=== PATIENT | female | born 1950 ===

== ENCOUNTER 2017-10-30 13:19 | Inpatient (IN) | payer MEDICARE, BC, MEDICAID ==
[2017-10-27 13:23] VITALS: PULSE 103
[2017-10-30 13:26] VITALS: BMI 32.9
--- NOTE | 2017-10-30 19:55 | CP.PCM.HP ---
History of Present Illness - History of Present Illness History of Present Illness: CC: CVA This is a 67 yo female with multiple medical problems with history of new CVA with right MCA distribution admitted today to [facility] acute rehab for continued PT/ OT/ST as well as continued monitoring. Her past medical history includes ESRD on dialysis, Type 2 DM, HTN, obesity, history of old CVA in 2011, atrial fibrillation, GI bleed with hemorrhagic shock last week at [facility]. During that time the patient had an episode of cardiac arrest and respiratory failure and required intubation and hemodynamic monitoring in the ICU due to hypotensive shock from extravasation. Today, the patient is hemodynamically stable and states that she feels well. She has had no further rectal bleeding. Patient denies chest pain, shortness of breath, fevers, chills, nausea, vomiting , diarrhea, headache. All of the patient's and/or family's questions were answered at the bedside. Past medical history: End-stage renal disease on dialysis 3 days a week MWF, Diverticulosis, CVA, hypertension, asthma, GI bleed, Type 2 DM Past surgical history: AV fistula, colonoscopy 08/13/2014 Allergies: No known drug allergies. Family history: Noncontributory this time Social history: No history of tobacco use, EtOH or illicit drugs Medications: Reviewed as per MAR Present on Admission - Present on Admission Any Indicators Present on Admission: No Review of Systems - Review of Systems Review of Systems: A 12 point review of systems was conducted and found to be negative other than what was mentioned in the HPI. Past Patient History - Infectious Disease Hx of Infectious Diseases: None - Tetanus Immunizations Tetanus Immunization: Up to Date - Past Social History Smoking Status: Never Smoked - CARDIAC Hx Cardiac Disorders: Yes Hx Hypercholesterolemia: Yes Hx Hypertension: Yes - PULMONARY Hx Asthma: Yes - NEUROLOGICAL HX Cerebrovascular Accident: Yes - HEENT Hx HEENT Problems: No - RENAL Hx Renal Failure: Yes (with dialysis) - ENDOCRINE/METABOLIC Hx Diabetes Mellitus Type 2: Yes - HEMATOLOGICAL/ONCOLOGICAL Hx Blood Transfusions: Yes Hx Blood Transfusion Reaction: No - INTEGUMENTARY Hx Dermatological Problems: No - MUSCULOSKELETAL/RHEUMATOLOGICAL Hx Falls: Yes - GASTROINTESTINAL Hx Gastrointestinal Disorders: Yes Other/Comment: diverticulosis/hemorroids - GENITOURINARY/GYNECOLOGICAL Hx Genitourinary Disorders: Yes (voids "a little") Other/Comment: dialysis patient. left limb alert - PSYCHIATRIC Hx Substance Use: No - SURGICAL HISTORY Hx Surgeries: Yes - ANESTHESIA Hx Anesthesia Reactions: No Hx Malignant Hyperthermia: No Meds Allergies/Adverse Reactions: Allergies Allergy/AdvReac Type Severity Reaction Status Date / Time Latex, Natural Rubber Allergy Unknown RASH Verified 10/26/17 14:13 Physical Exam - Additional Findings Additional findings: Physical exam: Constitutional- cooperative, awake, alert Head- NCAT, PERRL Eye- PERRL, EOMI ENT- normal exam, MMM. Neck- normal inspection, supple, no JVD Respiratory- CTAB, no wheezes rales rhonchi Cardiovascular- RRR, +S1, +S2 no MRG GI/Abdominal- normal bowel sounds, soft, no mass, no hsm Skin- warm, dry Extremities Exam- normal capillary refill, normal inspection Neurological Exam- alert, awake, oriented Psych- normal mood, normal affect Assessment & Plan - Assessment and Plan (Free Text) Plan: ASSESSMENT 1) Right MCA CVA 2) ESRD on dialysis 3 days a week 3) Recent hemorrhagic shock secondary to AV fistula bleed/GI bleed 4) Type 2 DM 5) Essential hypertension 6) Obesity 7) chronic atrial fibrillation PLAN - Admit to acute rehab - PT/OT/ST - consultation with Dr. Villafuerte, physiatry - Dr. Goetz on consultation for dialysis orders - Norvasc 2.5 mg po daily for htn - Sensipar 30 mg po acl and Sevelamer 2 tab po TID. In addition will add Nepro and Prostat diet supplementations - ASA 81 mg po daily - Prednisone 20 mg po daily - DVT prophylaxis with SCD due to recent hemorrhagic shock from GI bleed- anticoagulation other than heparin during dialysis is contraindicated
[2017-10-30] MEDS ORDERED: Patient's Own Med (Atorvastatin [Lipitor] 80 MG) PO SCH (22:00)
[2017-10-30] MEDS ORDERED: Insulin Lispro (humaLOG) 100 Units/ml Inj SC SCH (23:00)
[2017-10-30] MEDS: Insulin Lispro (humaLOG) 100 Units/ml Inj SC SCH (23:30)
[2017-10-31] MEDS: Silver Sulfadiazine 1% CREAM (50 gm) TOP SCH ×2 (06:06→17:46)
[2017-10-31] MEDS: Pantoprazole 40 mg EC Tab PO SCH (06:08)
[2017-10-31 06:35] LABS: HEMOGLOBIN 9.8 g/dL (12.0-16.0); MEAN CELL VOLUME 89.1 fl (81.0-99.0); MEAN CORPUSCULAR HEMOGLOBIN 29.1 pg (27.0-31.0); MEAN CORPUSCULAR HGB CONC 32.6 g/dL (33.0-37.0); RBC 3.37 Mil/uL (3.80-5.20); RED CELL DISTRIBUTION WIDTH 18.9 % (11.5-14.5); WHITE BLOOD COUNT 8.6 K/uL (4.8-10.8)
[2017-10-31 06:42] LABS: CALCIUM 9.5 mg/dL (8.4-10.2)
[2017-10-31] MEDS: Insulin Lispro (humaLOG) 100 Units/ml Inj SC SCH ×4 (07:35→22:00)
[2017-10-31] MEDS ORDERED: SEVELAMER CARBONATE PO SCH (09:00)
--- NOTE | 2017-10-31 11:28 | CP.PCM.CON ---
History of Present Illness - History of Present Illness History of Present Illness: This patient is 67 years of age female was admitted from [facility] because of CVA for rehabilitation because of weakness also generalized debility. Patient on with end stage renal disease on maintenance hemodialysis Sunday. And she is due to have dialysis today. Patient underwent multiple complicated hospitalizations related to severe bleeding from the left AV shunt patient. Patient was in intensive care unit on ventilator and she lost a lot of blood apparently and developed by a brief cardiac advised. Past medical history: End-stage renal disease on dialysis 3 days a week MWF, Diverticulosis, CVA, hypertension, asthma, GI bleed, Type 2 DM Past surgical history: AV fistula, colonoscopy 08/13/2014 Allergies: No known drug allergies. Family history: Noncontributory this time Social history: No history of tobacco use, EtOH or illicit drugs Medications: Reviewed Review of Systems - Constitutional Constitutional: absent: Anorexia, Chills - EENT Eyes: absent: Exophthalmos Nose/Mouth/Throat: absent: Nasal Congestion, Nasal Trauma, Post Nasal Drip - Cardiovascular Cardiovascular: Dyspnea on Exertion, Edema, Pedal Edema. absent: Chest Pain - Respiratory Respiratory: Dyspnea on Exertion. absent: Cough, Hemoptysis - Gastrointestinal Gastrointestinal: absent: Abdominal Pain, Coffee Ground Emesis, Cramping - Genitourinary Genitourinary: Nocturia - Menstruation Menstruation: absent: Cycle >35 Days - Musculoskeletal Musculoskeletal: Abnormal Gait, Muscle Weakness. absent: Numbness - Neurological Neurological: Abnormal Gait. absent: Confusion, Syncope - Psychiatric Psychiatric: absent: Confusion, Depression - Endocrine Endocrine: Fatigue - Hematologic/Lymphatic Hematologic: absent: Easy Bleeding Past Patient History - Infectious Disease Hx of Infectious Diseases: None - Tetanus Immunizations Tetanus Immunization: Up to Date - Past Medical History & Family History Past Medical History?: Yes - Past Social History Smoking Status: Never Smoked - CARDIAC Hx Cardiac Disorders: Yes Hx Congestive Heart Failure: No Hx Hypercholesterolemia: Yes Hx Hypertension: Yes - PULMONARY Hx Chronic Obstructive Pulmonary Disease (COPD): No - NEUROLOGICAL HX Cerebrovascular Accident: Yes - HEENT Hx HEENT Problems: No Hx Cataracts: Yes - RENAL Hx Renal Failure: Yes (with dialysis) - ENDOCRINE/METABOLIC Hx Diabetes Mellitus Type 1: No Hx Diabetes Mellitus Type 2: Yes Hx Hypothyroidism: Yes - HEMATOLOGICAL/ONCOLOGICAL Hx Anemia: Yes (secondary to rectal bleeding-resolved.) Hx Blood Transfusions: Yes Hx Blood Transfusion Reaction: No - INTEGUMENTARY Hx Dermatological Problems: No - MUSCULOSKELETAL/RHEUMATOLOGICAL Hx Arthritis: No - GASTROINTESTINAL Hx Gastrointestinal Disorders: Yes Other/Comment: diverticulosis/hemorroids. rectal bleeding - GENITOURINARY/GYNECOLOGICAL Hx Genitourinary Disorders: Yes (voids "a little") Other/Comment: dialysis patient. left limb alert - PSYCHIATRIC Hx Psychophysiologic Disorder: No Hx Substance Use: No - SURGICAL HISTORY Hx Surgeries: Yes - ANESTHESIA Hx Anesthesia Reactions: No Hx Malignant Hyperthermia: No Meds Allergies/Adverse Reactions: Allergies Allergy/AdvReac Type Severity Reaction Status Date / Time Latex, Natural Rubber Allergy Unknown RASH Verified 10/26/17 14:13 - Medications Medications: Current Medications Amlodipine Besylate (Norvasc) 2.5 mg PO DAILY [facility] Last Admin: 10/31/17 09:02 Dose: 2.5 mg Aspirin (Ecotrin) 81 mg PO DAILY [facility] Last Admin: 10/31/17 09:02 Dose: 81 mg Atorvastatin Calcium (Lipitor) 80 mg PO HS [facility] Last Admin: 10/30/17 22:21 Dose: 80 mg Cinacalcet (Sensipar) 30 mg PO ACL [facility] Doxercalciferol (Hectorol) 2 mcg IVP MOWEFR [facility] Gabapentin (Neurontin) 100 mg PO BID [facility] Last Admin: 10/31/17 09:50 Dose: 100 mg Home Med (Sevelamer Carbonate [Renvela]) 2 tab PO TID [facility] Insulin Human Lispro (Humalog) 0 units SC ACHS [facility] PRN Reason: Protocol Last Admin: 10/31/17 07:35 Dose: Not Given Montelukast Sodium (Singulair) 10 mg PO DAILY [facility] Last Admin: 10/31/17 09:02 Dose: 10 mg Pantoprazole Sodium (Protonix Ec Tab) 40 mg PO 0600 [facility] Last Admin: 10/31/17 06:08 Dose: 40 mg Prednisone (Prednisone Tab) 20 mg PO DAILY [facility] Last Admin: 10/31/17 09:02 Dose: 20 mg Silver Sulfadiazine (Silvadene 1% 50 Gm) 1 applic TOP 0600,1800 [facility] Last Admin: 10/31/17 06:06 Dose: 1 applic Physical Exam - Constitutional Appears: No Acute Distress - ENT Exam ENT Exam: Mucous Membranes Moist - Neck Exam Neck exam: Negative for: Lymphadenopathy - Respiratory Exam Respiratory Exam: NORMAL BREATHING PATTERN. absent: Chest Wall Tenderness, Rhonchi - Cardiovascular Exam Cardiovascular Exam: absent: Gallop, JVD, Rubs - GI/Abdominal Exam GI & Abdominal Exam: Normal Bowel Sounds - Extremities Exam Extremities exam: Negative for: calf tenderness - Back Exam Back exam: absent: CVA tenderness (L), CVA tenderness (R) - Neurological Exam Neurological exam: Alert - Psychiatric Exam Psychiatric exam: Normal Affect Results - Vital Signs Recent Vital Signs: Last Vital Signs Temp 97.9 F 10/31/17 07:30 Pulse 88 10/31/17 09:02 Resp 18 10/31/17 07:30 BP 145/69 10/31/17 09:02 Pulse Ox 98 10/31/17 07:30 - Labs Result Diagrams: 10/31/17 05:25 10/31/17 05:25 Labs: Laboratory Results - last 24 hr 10/30/17 10/31/17 10/31/17 20:48 05:25 05:25 WBC 8.6 RBC 3.37 L Hgb 9.8 L Hct 30.0 L MCV 89.1 MCH 29.1 MCHC 32.6 L RDW 18.9 H Plt Count 215 Sodium 137 Potassium 5.2 H Chloride 99 Carbon Dioxide 25 Anion Gap 18 BUN 94 H Creatinine 6.2 H Est GFR ( Amer) 8 Est GFR (Non-Af Amer) 7 POC Glucose (mg/dL) 282 H Random Glucose 112 H Calcium 9.5 10/31/17 10/31/17 05:58 11:13 WBC RBC Hgb Hct MCV MCH MCHC RDW Plt Count Sodium Potassium Chloride Carbon Dioxide Anion Gap BUN Creatinine Est GFR ( Amer) Est GFR (Non-Af Amer) POC Glucose (mg/dL) 104 155 H Random Glucose Calcium Assessment & Plan (1) Chronic kidney disease on chronic dialysis Assessment and Plan: Patient with end stage renal disease on maintenance hemodialysis. Sunday. Arrangement underway for hemodialysis today. Potassium bath 2 mEq with bicarbonate bath 34 Sodium bath 138 Ultrafiltration approximately 2500 mL to 3000 as tolerated.. EPO on dialysis. Other diagnosis patient admitted with acute CVA for rehabilitation. Status post cardiac arrest Status post massive bleeding from AV fistula. History of hyperphosphatemia History of secondary hyperparathyroidism Status: Acute (2) Hemorrhage of arteriovenous fistula Status: Acute (3) Hemorrhagic shock Status: Acute
--- NOTE | 2017-10-31 12:40 | CP.PCM.CON ---
History of Present Illness - History of Present Illness History of Present Illness: Dr Villafuerte PMR consultation on Caroline Isabel, born 1950, who has been admitted to [facility] for acute inpatient rehabilitation following an admission with N/V and right CVA with left HP. Multiple medical problems with limited function. + LGIB, s/p cardiac arrest Review of Systems - Review of Systems Systems not reviewed;Unavailable: Other (right now very tired and getting HD after therapy today. will defer denies pain or acute issue) Past Patient History - Infectious Disease Hx of Infectious Diseases: None - Tetanus Immunizations Tetanus Immunization: Up to Date - Past Medical History & Family History Past Medical History?: Yes - Past Social History Smoking Status: Never Smoked Alcohol: None Drugs: Denies Home Situation {Lives}: With Family - CARDIAC Hx Cardiac Disorders: Yes Hx Congestive Heart Failure: No Hx Hypercholesterolemia: Yes Hx Hypertension: Yes - PULMONARY Hx Chronic Obstructive Pulmonary Disease (COPD): No - NEUROLOGICAL HX Cerebrovascular Accident: Yes - HEENT Hx HEENT Problems: No Hx Cataracts: Yes - RENAL Hx Renal Failure: Yes (with dialysis) - ENDOCRINE/METABOLIC Hx Diabetes Mellitus Type 1: No Hx Diabetes Mellitus Type 2: Yes Hx Hypothyroidism: Yes - HEMATOLOGICAL/ONCOLOGICAL Hx Anemia: Yes (secondary to rectal bleeding-resolved.) Hx Blood Transfusions: Yes Hx Blood Transfusion Reaction: No - INTEGUMENTARY Hx Dermatological Problems: No - MUSCULOSKELETAL/RHEUMATOLOGICAL Hx Arthritis: No - GASTROINTESTINAL Hx Gastrointestinal Disorders: Yes Other/Comment: diverticulosis/hemorroids. rectal bleeding - GENITOURINARY/GYNECOLOGICAL Hx Genitourinary Disorders: Yes (voids "a little") Other/Comment: dialysis patient. left limb alert - PSYCHIATRIC Hx Psychophysiologic Disorder: No Hx Substance Use: No - SURGICAL HISTORY Hx Surgeries: Yes - ANESTHESIA Hx Anesthesia Reactions: No Hx Malignant Hyperthermia: No Meds Allergies/Adverse Reactions: Allergies Allergy/AdvReac Type Severity Reaction Status Date / Time Latex, Natural Rubber Allergy Unknown RASH Verified 10/26/17 14:13 - Medications Medications: Current Medications Amlodipine Besylate (Norvasc) 2.5 mg PO DAILY [facility] Last Admin: 10/31/17 09:02 Dose: 2.5 mg Aspirin (Ecotrin) 81 mg PO DAILY [facility] Last Admin: 10/31/17 09:02 Dose: 81 mg Atorvastatin Calcium (Lipitor) 80 mg PO HS [facility] Last Admin: 10/30/17 22:21 Dose: 80 mg Cinacalcet (Sensipar) 30 mg PO ACL [facility] Last Admin: 10/31/17 12:24 Dose: 30 mg Doxercalciferol (Hectorol) 2 mcg IVP MOWEFR [facility] Epoetin Gonzalo (Procrit) 5,000 unit IV MWF [facility] Gabapentin (Neurontin) 100 mg PO BID [facility] Last Admin: 10/31/17 09:50 Dose: 100 mg Home Med (Sevelamer Carbonate [Renvela]) 2 tab PO TID [facility] Insulin Human Lispro (Humalog) 0 units SC ACHS [facility] PRN Reason: Protocol Last Admin: 10/31/17 12:00 Dose: 2 u Montelukast Sodium (Singulair) 10 mg PO DAILY [facility] Last Admin: 10/31/17 09:02 Dose: 10 mg Pantoprazole Sodium (Protonix Ec Tab) 40 mg PO 0600 [facility] Last Admin: 10/31/17 06:08 Dose: 40 mg Prednisone (Prednisone Tab) 20 mg PO DAILY [facility] Last Admin: 10/31/17 09:02 Dose: 20 mg Silver Sulfadiazine (Silvadene 1% 50 Gm) 1 applic TOP 0600,1800 [facility] Last Admin: 10/31/17 06:06 Dose: 1 applic Physical Exam - Constitutional Appears: No Acute Distress - Head Exam Head Exam: ATRAUMATIC, NORMAL INSPECTION, NORMOCEPHALIC - ENT Exam ENT Exam: Mucous Membranes Moist Results - Vital Signs Recent Vital Signs: Last Vital Signs Temp 97.9 F 10/31/17 07:30 Pulse 88 10/31/17 09:02 Resp 18 10/31/17 07:30 BP 145/69 10/31/17 09:02 Pulse Ox 98 10/31/17 07:30 - Labs Result Diagrams: 10/31/17 05:25 10/31/17 05:25 Labs: Laboratory Results - last 24 hr 10/30/17 10/31/17 10/31/17 20:48 05:25 05:25 WBC 8.6 RBC 3.37 L Hgb 9.8 L Hct 30.0 L MCV 89.1 MCH 29.1 MCHC 32.6 L RDW 18.9 H Plt Count 215 Sodium 137 Potassium 5.2 H Chloride 99 Carbon Dioxide 25 Anion Gap 18 BUN 94 H Creatinine 6.2 H Est GFR ( Amer) 8 Est GFR (Non-Af Amer) 7 POC Glucose (mg/dL) 282 H Random Glucose 112 H Calcium 9.5 10/31/17 10/31/17 05:58 11:13 WBC RBC Hgb Hct MCV MCH MCHC RDW Plt Count Sodium Potassium Chloride Carbon Dioxide Anion Gap BUN Creatinine Est GFR ( Amer) Est GFR (Non-Af Amer) POC Glucose (mg/dL) 104 155 H Random Glucose Calcium Assessment & Plan - Assessment and Plan (Free Text) Assessment: 67 year old female with complex multiple medical issues on HD for ESRD + CVA left HP + DJD bilateral knees R>L limited function right arm AV fistula getting HD very tired will do more complete assessment tomorrow no calf tenderness PT/OT to continue to help increase functional independence Team conference for d/c planning Pain: controlled Vascular: no evidence of DVT GI: No evidence of constipation or diarrhea Patient is an excellent acute rehabilitation candidate and will have focused PT , OT and recreational therapy to help facilitate a safe and appropriate d/c plan impairment code: 01.1
[2017-10-31] MEDS: Epoetin Alfa 20000 UNIT/ML Inj IV SCH (17:34)
[2017-10-31] MEDS ORDERED: Doxercalciferol 4 mcg/2 ml Inj IVP SCH ×2 (19:25→19:39)
[2017-10-31 20:35] LABS: HEPATITIS B SURFACE AG Negative (NEGATIVE)
[2017-10-31 20:40] LABS: HEPATITIS B CORE AB NEGATIVE (NEGATIVE)
[2017-10-31 20:53] LABS: HEPATITIS C ANTIBODY NEGATIVE (NEGATIVE)
[2017-11-01] MEDS: Silver Sulfadiazine 1% CREAM (50 gm) TOP SCH ×2 (05:43→17:25)
[2017-11-01] MEDS: Pantoprazole 40 mg EC Tab PO SCH (05:44)
[2017-11-01] MEDS: Insulin Lispro (humaLOG) 100 Units/ml Inj SC SCH ×4 (07:36→21:51)
--- NOTE | 2017-11-01 08:00 | CP.PCM.PN ---
Subjective - Date & Time of Evaluation Date of Evaluation: 10/31/17 Time of Evaluation: 11:59 - Subjective Subjective: Patient and bed less shortness of breath No diarrhea and no vomiting Objective - Vital Signs/Intake and Output Vital Signs (last 24 hours): Temp Pulse Resp BP Pulse Ox 98.2 F 88 20 143/71 98 11/01/17 04:00 11/01/17 04:00 11/01/17 04:00 11/01/17 04:00 11/01/17 04:00 - Medications Medications: Current Medications Amlodipine Besylate (Norvasc) 2.5 mg PO DAILY [facility] Last Admin: 10/31/17 09:02 Dose: 2.5 mg Aspirin (Ecotrin) 81 mg PO DAILY [facility] Last Admin: 10/31/17 09:02 Dose: 81 mg Atorvastatin Calcium (Lipitor) 80 mg PO HS [facility] Last Admin: 10/31/17 21:49 Dose: 80 mg Cinacalcet (Sensipar) 30 mg PO ACL [facility] Last Admin: 10/31/17 12:24 Dose: 30 mg Epoetin Gonzalo (Procrit) 5,000 unit IV MWF [facility] Last Admin: 10/31/17 17:34 Dose: 5,000 unit Gabapentin (Neurontin) 100 mg PO BID [facility] Last Admin: 10/31/17 17:38 Dose: 100 mg Insulin Human Lispro (Humalog) 0 units SC ACHS [facility] PRN Reason: Protocol Last Admin: 11/01/17 07:36 Dose: Not Given Montelukast Sodium (Singulair) 10 mg PO DAILY [facility] Last Admin: 10/31/17 09:02 Dose: 10 mg Pantoprazole Sodium (Protonix Ec Tab) 40 mg PO 0600 [facility] Last Admin: 11/01/17 05:44 Dose: 40 mg Prednisone (Prednisone Tab) 20 mg PO DAILY [facility] Last Admin: 10/31/17 09:02 Dose: 20 mg Sevelamer HCl (Renagel) 800 mg PO TID [facility] Last Admin: 10/31/17 17:37 Dose: 800 mg Silver Sulfadiazine (Silvadene 1% 50 Gm) 1 applic TOP 0600,1800 [facility] Last Admin: 11/01/17 05:43 Dose: 1 applic Tramadol HCl (Ultram) 50 mg PO Q6 PRN PRN Reason: Pain, moderate (4-7) Last Admin: 11/01/17 05:57 Dose: 50 mg - Labs Labs: 10/31/17 05:25 10/31/17 05:25 - Constitutional Appears: No Acute Distress - ENT Exam ENT Exam: Mucous Membranes Moist - Neck Exam Neck Exam: absent: Lymphadenopathy - Respiratory Exam Respiratory Exam: Rhonchi, NORMAL BREATHING PATTERN. absent: Chest Wall Tenderness - Cardiovascular Exam Cardiovascular Exam: absent: Gallop, JVD, Rubs - GI/Abdominal Exam GI & Abdominal Exam: Soft - Extremities Exam Extremities Exam: absent: Calf Tenderness - Back Exam Back Exam: absent: CVA tenderness (L), CVA tenderness (R) - Neurological Exam Neurological Exam: Alert - Psychiatric Exam Psychiatric exam: Normal Affect - Skin Skin Exam: absent: Cyanosis Assessment and Plan (1) Chronic kidney disease on chronic dialysis Assessment & Plan: Patient with end stage renal disease on maintenance hemodialysis. Sunday. . Potassium bath 2 mEq with bicarbonate bath 34 Sodium bath 138 Ultrafiltration approximately 2500 mL to 3000 as tolerated.. Anemia EPO on dialysis. Other diagnosis patient admitted with acute CVA for rehabilitation. Status post cardiac arrest Status post massive bleeding from AV fistula. History of hyperphosphatemia History of secondary hyperparathyroidism Diabetes Mellitus hypertension Status: Acute (2) Hemorrhage of arteriovenous fistula Status: Acute (3) Hemorrhagic shock Status: Acute
--- NOTE | 2017-11-01 18:08 | PCM.OPOC ---
Physiatry Overall Plan of Care - Overall Plan of Care Estimated Length of Stay in Weeks: 3 Rehab Impairment: Mobility, Gait, Balance, Coordination Etiologic Diagnosis: Cerebrovascular Accident Rehab/Medical Prognosis: Fair - Anticipated Interventions Physical Therapy:: Yes Occupational Therapy:: Yes Speech Therapy:: No Recreational Therapy:: Yes - Therapy Goals Bed Mobility: Contact Guard Ambulation: Contact Guard Functional Positional Changes:: Contact Guard - Discharge Plan Discharge Destination: Subacute
[2017-11-02] MEDS: Silver Sulfadiazine 1% CREAM (50 gm) TOP SCH ×2 (06:25→17:04)
[2017-11-02] MEDS: Pantoprazole 40 mg EC Tab PO SCH (06:25)
[2017-11-02 06:35] LABS: HEMOGLOBIN 9.7 g/dL (12.0-16.0); MEAN CELL VOLUME 89.3 fl (81.0-99.0); MEAN CORPUSCULAR HEMOGLOBIN 29.3 pg (27.0-31.0); MEAN CORPUSCULAR HGB CONC 32.8 g/dL (33.0-37.0); RBC 3.3 Mil/uL (3.80-5.20); RED CELL DISTRIBUTION WIDTH 18.5 % (11.5-14.5); WHITE BLOOD COUNT 9.3 K/uL (4.8-10.8)
[2017-11-02] MEDS: Insulin Lispro (humaLOG) 100 Units/ml Inj SC SCH ×4 (06:35→21:14)
--- NOTE | 2017-11-02 09:45 | CP.PCM.PN ---
Subjective - Date & Time of Evaluation Date of Evaluation: 11/02/17 Time of Evaluation: 11:00 - Subjective Subjective: Patient seen and examined during PT. Feeling well, still with chest wall pain and discomfort since being defibrilated at [facility]. Hemodynamically stable, afebrile. participating with PT. Has soft BM and with on and off bleeding Denies any abdominal pain H& H stable For HD today Objective - Vital Signs/Intake and Output Vital Signs (last 24 hours): Temp Pulse Resp BP Pulse Ox 97.3 F L 90 19 111/52 L 98 11/02/17 08:21 11/02/17 09:02 11/02/17 08:21 11/02/17 09:02 11/02/17 08:21 - Medications Medications: Current Medications Amlodipine Besylate (Norvasc) 2.5 mg PO DAILY [facility] Last Admin: 11/02/17 09:02 Dose: 2.5 mg Aspirin (Ecotrin) 81 mg PO DAILY [facility] Last Admin: 11/02/17 09:04 Dose: 81 mg Atorvastatin Calcium (Lipitor) 80 mg PO HS [facility] Last Admin: 11/01/17 21:52 Dose: 80 mg Cinacalcet (Sensipar) 30 mg PO ACL [facility] Last Admin: 11/01/17 12:29 Dose: 30 mg Epoetin Gonzalo (Procrit) 5,000 unit IV MWF [facility] Last Admin: 10/31/17 17:34 Dose: 5,000 unit Gabapentin (Neurontin) 100 mg PO BID [facility] Last Admin: 11/02/17 09:01 Dose: 100 mg Insulin Human Lispro (Humalog) 0 units SC [facility] PRN Reason: Protocol Last Admin: 11/02/17 06:35 Dose: Not Given Montelukast Sodium (Singulair) 10 mg PO DAILY [facility] Last Admin: 11/02/17 09:02 Dose: 10 mg Pantoprazole Sodium (Protonix Ec Tab) 40 mg PO 0600 [facility] Last Admin: 11/02/17 06:25 Dose: 40 mg Prednisone (Prednisone Tab) 20 mg PO DAILY [facility] Last Admin: 11/02/17 09:04 Dose: 20 mg Sevelamer HCl (Renagel) 800 mg PO TID [facility] Last Admin: 11/02/17 09:01 Dose: 800 mg Silver Sulfadiazine (Silvadene 1% 50 Gm) 1 applic TOP 0600,1800 [facility] Last Admin: 11/02/17 06:25 Dose: 1 applic Tramadol HCl (Ultram) 50 mg PO Q6 PRN PRN Reason: Other Last Admin: 11/02/17 09:05 Dose: 50 mg - Labs Labs: 11/02/17 05:20 10/31/17 05:25 - Constitutional Appears: Non-toxic, No Acute Distress, Other (obese ) - Head Exam Head Exam: ATRAUMATIC, NORMOCEPHALIC - Eye Exam Eye Exam: EOMI, Normal appearance, PERRL Pupil Exam: NORMAL ACCOMODATION - ENT Exam ENT Exam: Mucous Membranes Moist, Normal Exam - Neck Exam Neck Exam: Full ROM, Normal Inspection - Respiratory Exam Respiratory Exam: Clear to Ausculation Bilateral. absent: Rales, Rhonchi, Wheezes, Respiratory Distress - Cardiovascular Exam Cardiovascular Exam: +S1, +S2. absent: JVD - GI/Abdominal Exam GI & Abdominal Exam: Soft, Normal Bowel Sounds. absent: Distended, Guarding, Tenderness, Rebound - Rectal Exam Rectal Exam: Deferred - Extremities Exam Extremities Exam: Full ROM, Normal Capillary Refill, Normal Inspection. absent : Calf Tenderness, Pedal Edema - Back Exam Back Exam: NORMAL INSPECTION - Neurological Exam Neurological Exam: Alert, Awake, CN II-XII Intact, Oriented x3 - Psychiatric Exam Psychiatric exam: Normal Affect - Skin Skin Exam: Dry, Intact, Warm Assessment and Plan - Assessment and Plan (Free Text) Assessment: 67 yo female with multiple medical problems with history of new CVA with right MCA distribution admitted to [facility] acute rehab for PT/OT. Her past medical history includes ESRD on dialysis, Type 2 DM, HTN, obesity, history of old CVA in 2011, atrial fibrillation, GI bleed with hemorrhagic shock just last week at [facility]. During that time the patient had an episode of cardiac arrest and respiratory failure and required intubation and hemodynamic monitoring in the ICU due to hypotensive shock from extravasation. At present in acute rehab participating with PT. Still with some rectal bleed but H& H stable. 1. Right MCA CVA continue PT / OT / speech therapy on ASa , statin 2. ESRD on dialysis 3 days a week for HD today Nephro on consult following continue renagel 3. Recent hemorrhagic shock secondary to AV fistula bleed/GI bleed 4. Anemia of chronic disease and acute blood loss still with minimal rectal bleed H& H stable Colonoscopy performed 10/26 showed severe ischemic colitis with mucosal ulcerations up to 40 cm,diverticula and internal hemorrhoids on Epopoetin 5. Type 2 DM controlled continue accuchecks and insulin sliding scale 6. Essential hypertension controlled continue Norvasc 7.Obesity BMI 8. Chronic atrial fibrillation rate controlled 9. Asthma ? on montelukast and prednisone PO 10. DVt prophylaxis SCD
--- NOTE | 2017-11-02 10:20 | CP.PCM.PN ---
Subjective - Date & Time of Evaluation Date of Evaluation: 11/02/17 Time of Evaluation: 10:18 - Subjective Subjective: Patient in bed Patient awake and conscious Appetite improving No shortness of breath or difficulty breathing Patient about to start physiotherapy Objective - Vital Signs/Intake and Output Vital Signs (last 24 hours): Temp Pulse Resp BP Pulse Ox 97.3 F L 90 19 111/52 L 98 11/02/17 08:21 11/02/17 09:02 11/02/17 08:21 11/02/17 09:02 11/02/17 08:21 - Medications Medications: Current Medications Amlodipine Besylate (Norvasc) 2.5 mg PO DAILY [facility] Last Admin: 11/02/17 09:02 Dose: 2.5 mg Aspirin (Ecotrin) 81 mg PO DAILY [facility] Last Admin: 11/02/17 09:04 Dose: 81 mg Atorvastatin Calcium (Lipitor) 80 mg PO HS [facility] Last Admin: 11/01/17 21:52 Dose: 80 mg Cinacalcet (Sensipar) 30 mg PO ACL [facility] Last Admin: 11/01/17 12:29 Dose: 30 mg Epoetin Gonzalo (Procrit) 5,000 unit IV MWF [facility] Last Admin: 10/31/17 17:34 Dose: 5,000 unit Gabapentin (Neurontin) 100 mg PO BID [facility] Last Admin: 11/02/17 09:01 Dose: 100 mg Insulin Human Lispro (Humalog) 0 units SC ACHS [facility] PRN Reason: Protocol Last Admin: 11/02/17 06:35 Dose: Not Given Montelukast Sodium (Singulair) 10 mg PO DAILY [facility] Last Admin: 11/02/17 09:02 Dose: 10 mg Pantoprazole Sodium (Protonix Ec Tab) 40 mg PO 0600 [facility] Last Admin: 11/02/17 06:25 Dose: 40 mg Prednisone (Prednisone Tab) 20 mg PO DAILY [facility] Last Admin: 11/02/17 09:04 Dose: 20 mg Sevelamer HCl (Renagel) 800 mg PO TID [facility] Last Admin: 11/02/17 09:01 Dose: 800 mg Silver Sulfadiazine (Silvadene 1% 50 Gm) 1 applic TOP 0600,1800 [facility] Last Admin: 11/02/17 06:25 Dose: 1 applic Tramadol HCl (Ultram) 50 mg PO Q6 PRN PRN Reason: Other Last Admin: 11/02/17 09:05 Dose: 50 mg - Labs Labs: 11/02/17 05:20 10/31/17 05:25 - Constitutional Appears: No Acute Distress - Eye Exam Eye Exam: Conjunctival injection - ENT Exam ENT Exam: Mucous Membranes Moist - Neck Exam Neck Exam: absent: Lymphadenopathy - Respiratory Exam Respiratory Exam: absent: Chest Wall Tenderness - Cardiovascular Exam Cardiovascular Exam: absent: Gallop, JVD, Rubs - GI/Abdominal Exam GI & Abdominal Exam: Soft, Normal Bowel Sounds. absent: Guarding - Extremities Exam Extremities Exam: absent: Calf Tenderness - Back Exam Back Exam: absent: CVA tenderness (L), CVA tenderness (R) - Neurological Exam Neurological Exam: Alert - Psychiatric Exam Psychiatric exam: Normal Affect - Skin Skin Exam: absent: Cyanosis Assessment and Plan (1) Chronic kidney disease on chronic dialysis Assessment & Plan: Patient with end stage renal disease on maintenance hemodialysis. Sunday. . Potassium bath 2 mEq with bicarbonate bath 34 Sodium bath 138 Ultrafiltration approximately 2500 mL to 3000 as tolerated.. Anemia EPO on dialysis. Other diagnosis patient admitted with acute CVA for rehabilitation. Status post cardiac arrest Status post massive bleeding from AV fistula. History of hyperphosphatemia History of secondary hyperparathyroidism Diabetes Mellitus hypertension Status: Acute (2) Hemorrhage of arteriovenous fistula Status: Acute (3) Hemorrhagic shock Status: Acute
[2017-11-02] MEDS: Epoetin Alfa 20000 UNIT/ML Inj IV SCH (17:01)
--- NOTE | 2017-11-02 19:33 | CP.PCM.PN ---
Subjective - Date & Time of Evaluation Date of Evaluation: 11/02/17 Time of Evaluation: 19:32 - Subjective Subjective: Patient seen in the room, doing well denies sob/cp just finished HD denies N/V ambulating 75' in therapy with min A continue current care Objective - Vital Signs/Intake and Output Vital Signs (last 24 hours): Temp Pulse Resp BP Pulse Ox 97.3 F L 90 19 111/52 L 97 11/02/17 08:21 11/02/17 09:02 11/02/17 08:21 11/02/17 09:02 11/02/17 08:48 - Medications Medications: Current Medications Amlodipine Besylate (Norvasc) 2.5 mg PO DAILY [facility] Last Admin: 11/02/17 09:02 Dose: 2.5 mg Aspirin (Ecotrin) 81 mg PO DAILY [facility] Last Admin: 11/02/17 09:04 Dose: 81 mg Atorvastatin Calcium (Lipitor) 80 mg PO HS [facility] Last Admin: 11/01/17 21:52 Dose: 80 mg Cinacalcet (Sensipar) 30 mg PO ACL [facility] Last Admin: 11/02/17 11:40 Dose: 30 mg Epoetin Gonzalo (Procrit) 5,000 unit IV MWF [facility] Last Admin: 11/02/17 17:01 Dose: 5,000 unit Gabapentin (Neurontin) 100 mg PO BID [facility] Last Admin: 11/02/17 17:04 Dose: 100 mg Insulin Human Lispro (Humalog) 0 units SC [facility] PRN Reason: Protocol Last Admin: 11/02/17 17:04 Dose: 2 u Montelukast Sodium (Singulair) 10 mg PO DAILY [facility] Last Admin: 11/02/17 09:02 Dose: 10 mg Pantoprazole Sodium (Protonix Ec Tab) 40 mg PO 0600 [facility] Last Admin: 11/02/17 06:25 Dose: 40 mg Prednisone (Prednisone Tab) 20 mg PO DAILY [facility] Last Admin: 11/02/17 09:04 Dose: 20 mg Sevelamer HCl (Renagel) 800 mg PO TID [facility] Last Admin: 11/02/17 17:04 Dose: 800 mg Silver Sulfadiazine (Silvadene 1% 50 Gm) 1 applic TOP 0600,1800 [facility] Last Admin: 11/02/17 17:04 Dose: 1 applic Tramadol HCl (Ultram) 50 mg PO Q6 PRN PRN Reason: Other Last Admin: 11/02/17 09:05 Dose: 50 mg - Labs Labs: 11/02/17 05:20 10/31/17 05:25
[2017-11-03] MEDS: Silver Sulfadiazine 1% CREAM (50 gm) TOP SCH ×2 (05:19→17:03)
[2017-11-03] MEDS: Pantoprazole 40 mg EC Tab PO SCH (05:19)
[2017-11-03] MEDS: Insulin Lispro (humaLOG) 100 Units/ml Inj SC SCH ×4 (06:38→21:16)
--- NOTE | 2017-11-03 22:36 | CP.PCM.PN ---
Subjective - Date & Time of Evaluation Date of Evaluation: 11/03/17 Time of Evaluation: 13:00 - Subjective Subjective: renal follow up note no events overnight vitals stable heent normal opmoist no jvd [id number] present no resp distress abd soft skin normal cooperative no fnd ESRD/DM/HTN/Anemia/cva/hx of cardiac arrest hd mwf, continue per schedule lytes reviewed anemia stable bp stable continue binders and sensipar Objective - Vital Signs/Intake and Output Vital Signs (last 24 hours): Temp Pulse Resp BP Pulse Ox 98.4 F 87 20 111/51 L 97 11/03/17 07:33 11/03/17 07:33 11/03/17 07:33 11/03/17 10:20 11/03/17 07:33 - Medications Medications: Current Medications Amlodipine Besylate (Norvasc) 2.5 mg PO DAILY [facility] Last Admin: 11/03/17 10:20 Dose: 2.5 mg Aspirin (Ecotrin) 81 mg PO DAILY [facility] Last Admin: 11/03/17 10:21 Dose: 81 mg Atorvastatin Calcium (Lipitor) 80 mg PO HS [facility] Last Admin: 11/03/17 21:16 Dose: 80 mg Cinacalcet (Sensipar) 30 mg PO ACL [facility] Last Admin: 11/03/17 12:06 Dose: 30 mg Epoetin Ognzalo (Procrit) 5,000 unit IV MWF [facility] Last Admin: 11/02/17 17:01 Dose: 5,000 unit Gabapentin (Neurontin) 100 mg PO BID [facility] Last Admin: 11/03/17 17:03 Dose: 100 mg Insulin Human Lispro (Humalog) 0 units SC [facility] PRN Reason: Protocol Last Admin: 11/03/17 21:16 Dose: Not Given Montelukast Sodium (Singulair) 10 mg PO DAILY [facility] Last Admin: 11/03/17 08:35 Dose: 10 mg Pantoprazole Sodium (Protonix Ec Tab) 40 mg PO 0600 [facility] Last Admin: 11/03/17 05:19 Dose: 40 mg Prednisone (Prednisone Tab) 20 mg PO DAILY [facility] Last Admin: 11/03/17 08:35 Dose: 20 mg Sevelamer HCl (Renagel) 800 mg PO TID [facility] Last Admin: 11/03/17 17:02 Dose: 800 mg Silver Sulfadiazine (Silvadene 1% 50 Gm) 1 applic TOP 0600,1800 [facility] Last Admin: 11/03/17 17:03 Dose: 1 applic Tramadol HCl (Ultram) 50 mg PO Q6 PRN PRN Reason: Other Last Admin: 11/02/17 09:05 Dose: 50 mg - Labs Labs: 11/02/17 05:20 10/31/17 05:25
[2017-11-03 23:03] VITALS: O2SAT 98
[2017-11-04] MEDS: Silver Sulfadiazine 1% CREAM (50 gm) TOP SCH (06:02)
[2017-11-04] MEDS: Pantoprazole 40 mg EC Tab PO SCH (06:02)
[2017-11-04] MEDS: Insulin Lispro (humaLOG) 100 Units/ml Inj SC SCH (06:39)
[2017-11-04] MEDS ORDERED: Sodium Chloride 0.9% 500 ML IV ONE (07:32)
--- NOTE | 2017-11-04 07:44 | CP.PCM.PN ---
Subjective - Date & Time of Evaluation Date of Evaluation: 11/04/17 Time of Evaluation: 07:40 - Subjective Subjective: Nurse called referring Temp of 102F and SBP of 86 with patient having loose bowel with blood in stool I&P #. Ischemic Colitis with Sepsis - IV Fluids NS 500mls Bolus then continue with 100mls/hr to complete iL - blood Culture X2 - CBC stat - CMP stat - Procalcitoning - Tylenol for Fever - Stool for C Diff - Cipro - Flagyl Nicholas Valdes MD Objective - Vital Signs/Intake and Output Vital Signs (last 24 hours): Temp Pulse Resp BP Pulse Ox 99 F 82 20 124/55 L 98 11/03/17 20:00 11/03/17 20:00 11/03/17 20:00 11/03/17 20:00 11/03/17 20:00 - Medications Medications: Current Medications Acetaminophen (Tylenol 325mg Tab) 650 mg PO Q6 PRN PRN Reason: Fever >100.4 F Amlodipine Besylate (Norvasc) 2.5 mg PO DAILY [facility] Last Admin: 11/03/17 10:20 Dose: 2.5 mg Aspirin (Ecotrin) 81 mg PO DAILY [facility] Last Admin: 11/03/17 10:21 Dose: 81 mg Atorvastatin Calcium (Lipitor) 80 mg PO HS [facility] Last Admin: 11/03/17 21:16 Dose: 80 mg Cinacalcet (Sensipar) 30 mg PO ACL [facility] Last Admin: 11/03/17 12:06 Dose: 30 mg Epoetin Gonzalo (Procrit) 5,000 unit IV MWF [facility] Last Admin: 11/02/17 17:01 Dose: 5,000 unit Gabapentin (Neurontin) 100 mg PO BID [facility] Last Admin: 11/03/17 17:03 Dose: 100 mg Sodium Chloride (Sodium Chloride 0.9%) 500 mls @ 500 mls/hr IV .Q1H ONE Stop: 11/04/17 08:31 Insulin Human Lispro (Humalog) 0 units SC ACHS [facility] PRN Reason: Protocol Last Admin: 11/04/17 06:39 Dose: Not Given Montelukast Sodium (Singulair) 10 mg PO DAILY [facility] Last Admin: 11/03/17 08:35 Dose: 10 mg Pantoprazole Sodium (Protonix Ec Tab) 40 mg PO 0600 [facility] Last Admin: 11/04/17 06:02 Dose: 40 mg Prednisone (Prednisone Tab) 20 mg PO DAILY [facility] Last Admin: 11/03/17 08:35 Dose: 20 mg Sevelamer HCl (Renagel) 800 mg PO TID [facility] Last Admin: 11/03/17 17:02 Dose: 800 mg Silver Sulfadiazine (Silvadene 1% 50 Gm) 1 applic TOP 0600,1800 [facility] Last Admin: 11/04/17 06:02 Dose: 1 applic Tramadol HCl (Ultram) 50 mg PO Q6 PRN PRN Reason: Other Last Admin: 11/02/17 09:05 Dose: 50 mg - Labs Labs: 11/02/17 05:20 10/31/17 05:25
[2017-11-04] MEDS ORDERED: metroNIDAZOLE 500mg/100ml NS 100 ML IVPB SCH (08:00)
[2017-11-04 08:16] VITALS: BP 88/40; PULSE 102; RESP 22
--- NOTE | 2017-11-04 08:20 | CP.PCM.DIS ---
Provider - Provider Date of Admission: 10/30/17 19:15 Attending physician: Moises Oneil DO Primary care physician: Dr. Erika Waggoner Consults: Nephro consult manager camp consult Time Spent in preparation of Discharge (in minutes): 20 Hospital Course - Lab Results Lab Results: Most Recent Lab Values WBC 9.3 K/uL (4.8-10.8) 11/02/17 05:20 RBC 3.30 Mil/uL (3.80-5.20) L 11/02/17 05:20 Hgb 9.7 g/dL (12.0-16.0) L 11/02/17 05:20 Hct 29.5 % (34.0-47.0) L 11/02/17 05:20 MCV 89.3 fl (81.0-99.0) 11/02/17 05:20 MCH 29.3 pg (27.0-31.0) 11/02/17 05:20 MCHC 32.8 g/dL (33.0-37.0) L 11/02/17 05:20 RDW 18.5 % (11.5-14.5) H 11/02/17 05:20 Plt Count 201 K/uL (130-400) 11/02/17 05:20 Sodium 137 mmol/l (132-148) 10/31/17 05:25 Potassium 5.2 MMOL/L (3.6-5.0) H 10/31/17 05:25 Chloride 99 mmol/L (98-107) 10/31/17 05:25 Carbon Dioxide 25 mmol/L (22-30) 10/31/17 05:25 Anion Gap 18 (10-20) 10/31/17 05:25 BUN 94 mg/dl (7-17) H 10/31/17 05:25 Creatinine 6.2 mg/dl (0.7-1.2) H 10/31/17 05:25 Est GFR ( Amer) 8 10/31/17 05:25 Est GFR (Non-Af Amer) 7 10/31/17 05:25 POC Glucose (mg/dL) 128 mg/dL (65-110) H 11/04/17 06:05 Random Glucose 112 mg/dL (65-105) H 10/31/17 05:25 Calcium 9.5 mg/dL (8.4-10.2) 10/31/17 05:25 Phosphorus 6.3 mg/dl (2.5-4.5) H 11/02/17 05:20 Hep Bs Antigen Negative (NEGATIVE) 10/31/17 15:06 Hep Bs Antibody Positive (NEGATIVE) 10/31/17 15:06 Hep B Core IgM Ab Negative (NEGATIVE) 10/31/17 15:06 Hepatitis C Antibody Negative (NEGATIVE) 10/31/17 15:06 - Hospital Course Hospital Course: 67 yo female with multiple medical problems with history of new CVA with right MCA distribution admitted to [facility] acute rehab for PT/OT. Her past medical history includes ESRD on dialysis, Type 2 DM, HTN, obesity, history of old CVA in 2011, atrial fibrillation, GI bleed with hemorrhagic shock just last week at [facility]. During that time the patient had an episode of cardiac arrest and respiratory failure and required intubation and hemodynamic monitoring in the ICU due to hypotensive shock from extravasation. She developed ischemic colitis that was diagnosed with colonoscopy .At present patient continuos to have rectal bleed , started to have fever Tmax 102 and has minimal lower abdominal tenderness with palpation and her BP is in the lower side.. Her H& H remains stable. Full septic panel was ordered , Cipro and Flagyl given and IVF ( bolus started ). At this point it is the opininon of medical doctor that patientsholuid be transferred to acute care facility for further treatment and evaluation .Called and discussed case with PMD Dr. Erika Waggoner who agrees with patient to be transferred to [facility] ER . Explained to patient who agrees with transfer to [facility] since she had full work up there and her family lives in [place]. Son informed of transfer. 1. Suspected sepsis secondary to ischemic colitis (Colonoscopy performed 10/26 showed severe ischemic colitis with mucosal ulcerations up to 40 cm,diverticula and internal hemorrhoids )( hold ASA and BP meds -- continue IVF ) 2. Rectal bleed 3. Anemia of chronic disease and acute blood loss 4. Right MCA CVA 5. ESRD on dialysis 3 days a week 6. Recent hemorrhagic shock secondary to AV fistula bleed/GI bleed 7. Type 2 DM 8. Essential hypertension 9.Obesity BMI 10. Chronic atrial fibrillation 11. Asthma ? Discharge Exam - Head Exam Head Exam: ATRAUMATIC, NORMOCEPHALIC Additional comments: obese awake , alert oriented x 3 in NAD - Eye Exam Eye Exam: EOMI, PERRL Pupil Exam: NORMAL ACCOMODATION - ENT Exam ENT Exam: Mucous Membranes Moist, Normal Exam - Neck Exam Neck exam: Full Rom, Normal Inspection - Respiratory Exam Respiratory Exam: Clear to PA & Lateral, NORMAL BREATHING PATTERN. absent: Rhonchi, Wheezes, Respiratory Distress - Cardiovascular Exam Cardiovascular Exam: REGULAR RHYTHM, +S1, +S2. absent: JVD - GI/Abdominal Exam GI & Abdominal Exam: Normal Bowel Sounds, Soft, Tenderness (with palpation to lower abdomen ). absent: Distended, Guarding, Rebound Additional comments: rectal bleed - Rectal Exam Additional comments: rectal bleed - Extremities Exam Extremities exam: normal inspection Additional comments: LUE AVF - Neurological Exam Neurological exam: Alert, CN II-XII Intact, Oriented x3 - Psychiatric Exam Psychiatric exam: Normal Affect - Skin Skin Exam: Dry, Warm Discharge Plan - Follow Up Plan Condition: GOOD Disposition: Trans to Other Acute Care Hosp Patient education suggested?: Yes Referrals: Edilson James MD [Medical Doctor] -
[2017-11-04 08:22] VITALS: TEMP 101.7
[2017-11-04] MEDS ORDERED: Ciprofloxacin 400mg/200ml D5W 400 MG/200 ML BAG IVPB SCH (09:00)
[2017-11-04 09:12] LABS: BASO % 0.3 % (0.0-2.0); EOS % 0.1 % (0.0-4.0); HEMOGLOBIN 8.5 g/dL (12.0-16.0); LYMPH # 0.8 K/uL (1.0-4.3); MEAN CELL VOLUME 88.8 fl (81.0-99.0); MEAN CORPUSCULAR HEMOGLOBIN 28.7 pg (27.0-31.0); MEAN CORPUSCULAR HGB CONC 32.3 g/dL (33.0-37.0); MEAN PLATELET VOLUME 7.9 fl (7.2-11.7); MONO # 1.2 K/uL (0.0-0.8); NEUT # 11.1 K/uL (1.8-7.0); NEUT % 84.6 % (50.0-75.0); NRBC % 0.2 % (0.0-0.0); PLATELET COUNT 192 K/uL (130-400); RBC 2.95 Mil/uL (3.80-5.20); RED CELL DISTRIBUTION WIDTH 18.5 % (11.5-14.5); WHITE BLOOD COUNT 13.1 K/uL (4.8-10.8)
[2017-11-04 09:23] LABS: CALCIUM 9.3 mg/dL (8.4-10.2)
[2017-11-04 11:59] LABS: BASOPHIL 1 % (0-2); LYMPHOCYTE 11 % (20-50); METAMYELOCYTE 1 % (0-0); MONOCYTE 4 % (0-10); NEUTROPHIL 62 % (42-75); PLATELET ESTIMATE NORMAL (NORMAL); TOTAL CELLS COUNTED 100
[2017-11-04 12:00] LABS: ANISOCYTOSIS SLIGHT
[2017-11-04 12:01] LABS: HYPOCHROMIC MODERATE; POLYCHROMIC SLIGHT
[2017-11-04 12:08] LABS: BANDS 21 % (0-2)
== END 2017-11-04 09:45 | disposition short-term general hospital (02) | DRG 56 ==
PROVIDERS: ADMIT Internal Medicine; ATTEND Internal Medicine
PROC: F07Z9FZ Gait Training/Functional Ambulation Treatment using Assistive, Adaptive, Supportive or Protective Equipment (ICD-10-PCS; principal; 2017-10-30)
PROC: F07L6FZ Therapeutic Exercise Treatment of Musculoskeletal System - Lower Back / Lower Extremity using Assistive, Adaptive, Supportive or Protective Equipment (ICD-10-PCS; 2017-10-30)
PROC: 5A1D70Z Performance of Urinary Filtration, Intermittent, Less than 6 Hours Per Day (ICD-10-PCS; 2017-10-31)
PROC: F08Z4FZ Home Management Treatment using Assistive, Adaptive, Supportive or Protective Equipment (ICD-10-PCS; 2017-10-31)
PROC: 30233N1 Transfusion of Nonautologous Red Blood Cells into Peripheral Vein, Percutaneous Approach (ICD-10-PCS; 2017-11-04)
DX: I69.354 Hemiplegia and hemiparesis following cerebral infarction affecting left non-dominant side (principal); N18.6 End stage renal disease; I12.0 Hypertensive chronic kidney disease with stage 5 chronic kidney disease or end stage renal disease; N25.81 Secondary hyperparathyroidism of renal origin; D62 Acute posthemorrhagic anemia; K55.8 Other vascular disorders of intestine; I48.2 Chronic atrial fibrillation; E11.22 Type 2 diabetes mellitus with diabetic chronic kidney disease; D63.8 Anemia in other chronic diseases classified elsewhere; K64.8 Other hemorrhoids; K57.30 Diverticulosis of large intestine without perforation or abscess without bleeding; E03.9 Hypothyroidism, unspecified; M17.0 Bilateral primary osteoarthritis of knee; E78.00 Pure hypercholesterolemia, unspecified; J45.909 Unspecified asthma, uncomplicated; E66.9 Obesity, unspecified; Z68.32 Body mass index [BMI] 32.0-32.9, adult; Z86.74 Personal history of sudden cardiac arrest; Z99.2 Dependence on renal dialysis; Z91.040 Latex allergy status; Z79.4 Long term (current) use of insulin

== ENCOUNTER 2017-11-04 09:47 | Inpatient (IN) | payer MEDICARE, BC, MEDICAID ==
[2017-11-04 09:47] VITALS: PULSE 103
[2017-11-04 09:51] VITALS: BMI 25.7
--- NOTE | 2017-11-04 09:54 | ED PDOC ---
HPI: General Adult Time Seen by Provider: 11/04/17 09:49 Chief Complaint (Provider): Hypotension History Per: Patient History/Exam Limitations: no limitations Onset/Duration Of Symptoms: Days (today) Additional Complaint(s): PCP Dr. Devin Sam. Pt. seen by Dr. Lockett for hypotension and started giving pt. fluids. Pt. states mild abd pain, which is ongoing for a long time. Pt. was originally at [facility] and had a GI bleed lower with ischemic colitis. Pt. given blood at some point and then put in subacute rehab. Today had a bp of 67 systolic. Was suppose to get transferred back today. Dr. Lockett ordered blood, labs, and 2L of fluid. Pt. denies any headaches, dizziness. Has general weakness. No chest pain. Some blood clots seen coming out from rectum. Pt. getting sepsis work ordered per Dr. Lockett. On cipro and flagyl. Past Medical History Vital Signs: Last Vital Signs Temp 98.5 F 11/04/17 11:44 Pulse 86 11/04/17 11:44 Resp 20 11/04/17 11:44 BP 94/48 L 11/04/17 11:44 Pulse Ox 99 11/04/17 11:42 - Medical History PMH: Anemia (secondary to rectal bleeding-resolved.), Asthma, Diverticulitis, HTN, Hypercholesterolemia, Hyperlipidemia, Hypothyroidism, Chronic Kidney Disease, TIA Denies: Alzheimer's Disease, Anxiety, Arthritis, Bipolar Disorder, Bronchitis , Cardia Arrhythmia, CHF, COPD, Crohn's Disease, Dementia, Depression, Emphysema , Fibromyalgia, Fractures, Gastrointestinal Ulcer, Gall Bladder Disease, HIV, Hyperthyroidism, Kidney Stones, Migraine, Mitral Valve Prolapse, Osteoporosis, Pancreatitis, Paranoia, Parkinson's Disease, Peripheral Edema, Pneumonia, Post Traumatic Stress Disorder, Schizophrenia, Seizures, Sickle Cell Disease, Sexually Transmitted Disease, Sleep Apnea - Surgical History Surgical History: Denies: Appendectomy, Cholecystectomy, Coronary Stent, Pacemaker - Family History Family History: States: Unknown Family Hx - Immunization History Hx Tetanus Toxoid Vaccination: No Hx Influenza Vaccination: Yes Hx Pneumococcal Vaccination: No - Home Medications Home Medications: Ambulatory Orders Medication Instructions Recorded Montelukast [Singulair] 10 mg PO DAILY 12/24/11 Cinacalcet [Sensipar] 30 mg PO ACL 02/21/16 Gabapentin [Neurontin] 100 mg PO BID 02/21/16 Sevelamer Carbonate [Renvela] 1 tab PO TID 02/21/16 Atorvastatin [Lipitor] 80 mg PO HS 10/30/17 Pantoprazole [Protonix EC Tab] 40 mg PO 0600 ect 10/30/17 Silver Sulfadiazine 1% 25 gm 1 applic TP 0600,1800 10/30/17 [Silvadene 1% 25 gm] predniSONE [predniSONE Tab] 20 mg PO DAILY tab 10/30/17 Epoetin Gonzalo [Procrit] 5,000 unit IV MWF ml 11/04/17 amLODIPine [Norvasc] 2.5 mg PO DAILY 11/04/17 - Allergies Allergies/Adverse Reactions: Allergies Allergy/AdvReac Type Severity Reaction Status Date / Time Latex, Natural Rubber Allergy Unknown RASH Verified 10/26/17 14:13 Review of Systems ROS Statement: Except As Marked, All Systems Reviewed And Found Negative Gastrointestinal: Positive for: Abdominal Pain Neurological: Positive for: Weakness Physical Exam - Reviewed Nursing Documentation Reviewed: Yes Vital Signs Reviewed: Yes - Physical Exam Appears: Positive for: Uncomfortable Head Exam: Positive for: ATRAUMATIC, NORMAL INSPECTION, NORMOCEPHALIC Skin: Positive for: Normal Color, Warm, DRY Eye Exam: Positive for: EOMI, Normal appearance, PERRL ENT: Positive for: Normal ENT Inspection Neck: Positive for: Normal, Painless ROM Cardiovascular/Chest: Positive for: Regular Rate, Rhythm Respiratory: Positive for: CNT, Normal Breath Sounds Gastrointestinal/Abdominal: Positive for: Soft, Tenderness (mild). Negative for : Distended, Guarding Back: Positive for: Normal Inspection. Negative for: L CVA Tenderness, R CVA Tenderness Rectal: Positive for: Other (gross blood and clots from rectum) Extremity: Negative for: Tenderness, Pedal Edema Neurologic/Psych: Positive for: Alert, Oriented - Laboratory Results Result Diagrams: 11/04/17 11:09 11/04/17 11:09 - ECG ECG: Positive for: Interpreted By Me, Viewed By Me ECG Rhythm: Positive for: Normal QRS, Sinus Rhythm, Nonspecific Changes - Radiology X-Ray: Interpreted by Me, Viewed By Me X-Ray Interpretation: Other (dialysis catheter in place) - Progress ED Course And Treament: 1000: Will put in central line as pt. has poor access and borderline hypotensive despite fluids. Will put in groin as pt. as dialysis catheter in chest. 1045: GI fellow spoken to and will see pt. in the ER. 1115: GI saw pt. in ER. Dr. Gamez. States pt. is ischemic colitis related GI bleed. Wants surgical consult, blood. No further tx they can offer. Pt. has central line. Spoke with Dr. Henderson who will admit. Dr. Lockett to admit to her service. 1148: Stable. AAOx3. Spoke salesperson surgical appliances who will see pt. for consult. BP improving with fluids. Blood pending. HG low likely from GI bleed rectal. - Critical Care Total Time (In Min): 30 Documented Critical Care: Time excludes all time spent performint seperately billable procedures Procedures - Central Line Central Line Lumen: triple Central Line Procedure: betadine prep, sterile drapes applied, sterile dressing applied Central Line Postion: femoral (R) Anesthesia: Lidocaine cc's of anesthesia: 3 Complications: none Central Line Post Position: sutured, good blood return Progress: R femoral used as pt. has dialysis catheter in chest. Disposition - Clinical Impression Clinical Impression: Colitis, Gastrointestinal hemorrhage - Patient ED Disposition Is Patient to be Admitted: Yes Doctor Will See Patient In The: Hospital Counseled Patient/Family Regarding: Studies Performed, Diagnosis - Disposition Disposition Time: 11:00 Condition: CRITICAL - Pt Status Changed To: Hospital Disposition Of: Inpatient - Admit Certification Admit to Inpatient:: After my assessment, the patient will require hospitalization for at least two midnights. This is because of the severity of symptoms shown, intensity of services needed, and/or the medical risk in this patient being treated as an outpatient. - POA Present On Arrival: None
[2017-11-04 10:39] LABS: ABG ALLEN TEST YES; ARTERIAL BLOOD GAS HCO3 24.3 mmol/L (21-28); ARTERIAL BLOOD GAS O2 SAT 99.2 % (95-98); ARTERIAL BLOOD GAS PCO2 45 mm/Hg (35-45); ARTERIAL BLOOD GAS PH 7.35 (7.35-7.45); ARTERIAL BLOOD GAS PO2 158 mm/Hg (80-100); ARTERIAL BLOOD GAS TCO2 26.2 mmol/L (22-28)
[2017-11-04] MEDS ORDERED: Sodium Chloride 0.9% 1,000 ML IV STA (10:41)
--- NOTE | 2017-11-04 11:12 | CP.PCM.CON ---
<Mikki Strange - Last Filed: 11/04/17 11:33> History of Present Illness - History of Present Illness History of Present Illness: GI Fellow PGY 4 Consult Note This is a 67yF wth pmhx of CVA, ESRD on dialysis, Type 2 DM, HTN, Atrial fibrillation, GI bleed with hemorrhagic shock last week at [facility]. During that time the patient had an episode of cardiac arrest and respiratory failure and required intubation and hemodynamic monitoring in the ICU due to hypotensive shock. She developed ischemic colitis and had a colonoscopy with Dr. Montanez 10/26/17 which showed severe ischemic colitis with ulcerations upto 40cm, scope not advanced further than descending colon. Documentation stated s/ p EGD: jimena ulcer/duodenal ulcer/large H/H however no report to see this endoscopy findings. Pt was transfused PRBCs and stabilized and sent to [facility] for rehab. In rehab pt developed rectal bleeding with hypotension, fever 102 and transferred to ER. Patient started to pass blood clots per rectum and BP decreased to 68/38, CBC reported hgb 8.5 with from 9.7.At time of evaluation pt getting a femoral TLC placed by surgery. ROS: A 12pt ROS was negative except as above PmHX: As stated in HPI PsHX: Unable to be obtained pt getting TLC placed FHx: Unable to be obtained pt getting TLC placed SH: Unable to be obtained pt getting TLC placed Past Patient History - Infectious Disease Hx of Infectious Diseases: None - Tetanus Immunizations Tetanus Immunization: Up to Date - Past Medical History & Family History Past Medical History?: Yes - Past Social History Smoking Status: Never Smoked - CARDIAC Hx Cardia Arrhythmia: No Hx Congestive Heart Failure: No Hx Hypercholesterolemia: Yes Hx Hypertension: Yes Hx Mitral Valve Prolapse: No Hx Pacemaker: No Hx Peripheral Edema: No - PULMONARY Hx Asthma: Yes Hx Bronchitis: No Hx Chronic Obstructive Pulmonary Disease (COPD): No Hx Emphysema: No Hx Pneumonia: No Hx Sleep Apnea: No - NEUROLOGICAL Hx Alzheimer's Disease: No Hx Dementia: No Hx Migraine: No Hx Parkinson's Disease: No Hx Seizures: No Hx Transient Ischemic Attacks (TIA): Yes - HEENT Hx HEENT Problems: No Hx Cataracts: Yes - RENAL Hx Chronic Kidney Disease: Yes Hx Kidney Stones: No - ENDOCRINE/METABOLIC Hx Hyperthyroidism: No Hx Hypothyroidism: Yes - HEMATOLOGICAL/ONCOLOGICAL Hx Anemia: Yes (secondary to rectal bleeding-resolved.) Hx Human Immunodeficiency Virus (HIV): No Hx Sickle Cell Disease: No - INTEGUMENTARY Hx Dermatological Problems: No - MUSCULOSKELETAL/RHEUMATOLOGICAL Hx Arthritis: No Hx Fractures: No Hx Osteoporosis: No - GASTROINTESTINAL Hx Crohn's Disease: No Hx Diverticulitis: Yes Hx Gall Bladder Disease: No Hx Pancreatitis: No - GENITOURINARY/GYNECOLOGICAL Hx Sexually Transmitted Disorders: No - PSYCHIATRIC Hx Anxiety: No Hx Bipolar Disorder: No Hx Depression: No Hx Paranoia: No Hx Post Traumatic Stress Disorder: No Hx Schizophrenia: No - SURGICAL HISTORY Hx Appendectomy: No Hx Cholecystectomy: No Hx Coronary Stent: No - ANESTHESIA Hx Anesthesia Reactions: No Hx Malignant Hyperthermia: No Meds Allergies/Adverse Reactions: Allergies Allergy/AdvReac Type Severity Reaction Status Date / Time Latex, Natural Rubber Allergy Unknown RASH Verified 10/26/17 14:13 - Medications Medications: Current Medications Sodium Chloride (Sodium Chloride 0.9%) 1,000 mls @ 1,000 mls/hr IV .Q1H STA Stop: 11/04/17 11:40 Last Admin: 11/04/17 10:53 Dose: 1,000 mls/hr Physical Exam - Constitutional Appears: Non-toxic, No Acute Distress - Head Exam Head Exam: ATRAUMATIC, NORMAL INSPECTION, NORMOCEPHALIC - Eye Exam Eye Exam: Normal appearance, PERRL - ENT Exam ENT Exam: Mucous Membranes Dry - Neck Exam Neck exam: Positive for: Full Rom, Normal Inspection - Respiratory Exam Respiratory Exam: Clear to Auscultation Bilateral, NORMAL BREATHING PATTERN - Cardiovascular Exam Cardiovascular Exam: Irregular Rhythm, RRR, +S1, +S2 - GI/Abdominal Exam GI & Abdominal Exam: Normal Bowel Sounds, Soft, Tenderness - Extremities Exam Extremities exam: Positive for: full ROM, normal inspection - Neurological Exam Neurological exam: Alert, Oriented x3 - Psychiatric Exam Psychiatric exam: Normal Affect, Normal Mood - Skin Skin Exam: Dry, Intact, Normal Color, Warm Results - Vital Signs Recent Vital Signs: Last Vital Signs Temp 98.6 F 11/04/17 10:20 Pulse 98 H 11/04/17 11:00 Resp 19 11/04/17 11:00 BP 80/40 L 11/04/17 11:00 Pulse Ox 97 11/04/17 10:59 - Labs Result Diagrams: 11/04/17 11:09 Labs: Laboratory Results - last 24 hr 11/04/17 10:25 pCO2 45 pO2 158 H HCO3 24.3 ABG pH 7.35 ABG Total CO2 26.2 ABG O2 Saturation 99.2 H ABG Base Excess -0.8 Mariusz Test Yes ABG Potassium 3.9 A-a O2 Difference 14.0 Chloride 105.0 Glucose 105 Lactate 0.7 Vent Mode Nc FiO2 32.0 Arterial Blood Potassium 3.9 Assessment & Plan - Assessment and Plan (Free Text) Assessment: This is 67yF presenting with rectal bleeding and hypotension. 1. Ischemic colitis with rectal bleeding 2. Hypotesion 3. Anemia 4. s/p Cardiac and Respiratory arrest 5. s/p Hemorrhage Shock 6. ESRD 7. CVA 8. Afib 9. Sepsis Plan: -Continue supportive care with Sepsis protocol and workup -Aggressive Resuscitation with IVF hydration and recommend 2 U PRBCs blood transfusion with recent cardiac arrest and active rectal bleeding -s/p Colonoscopy 10/26/17 with severe ischemic colitis and ulceration in descending colon -Rectal bleeding from ischemic colitis, no further GI intervention, recommend supportive care and Surgical consult for evaluation and further recommendations -Need to optimize hemodynamics -Sepsis workup with blood culture as pt is febrile -Recommend broad spectrum IV abx -Monitor H/H -NPO -Will continue to follow pt closely <Sathish Gamez - Last Filed: 11/04/17 11:48> Meds - Medications Medications: Current Medications Desmopressin Acetate (Ddavp) 20 mcg IV ONCE ONE Stop: 11/04/17 11:26 Sodium Chloride (Sodium Chloride 0.9%) 1,000 mls @ 1,000 mls/hr IV .Q1H STA Stop: 11/04/17 11:40 Last Admin: 11/04/17 10:53 Dose: 1,000 mls/hr Ciprofloxacin (Cipro 400mg/200ml Dsw) 400 mg in 200 mls @ 200 mls/hr IVPB DAILY ORBBI PRN Reason: Protocol Metronidazole (Flagyl 500mg/100ml Ns) 100 mls @ 100 mls/hr IVPB Q8 ROBBI PRN Reason: Protocol Dextrose/Sodium Chloride (Dextrose 5%/0.9% Ns 1000 Ml) 1,000 mls @ 125 mls/hr IV .Q8H ROBBI Stop: 11/05/17 11:31 Pantoprazole Sodium (Protonix Inj) 40 mg IVP DAILY ROBBI Results - Vital Signs Recent Vital Signs: Last Vital Signs Temp 98.5 F 11/04/17 11:36 Pulse 88 11/04/17 11:36 Resp 20 11/04/17 11:36 BP 93/50 L 11/04/17 11:36 Pulse Ox 98 11/04/17 11:36 - Labs Result Diagrams: 11/04/17 11:09 Labs: Laboratory Results - last 24 hr 11/04/17 11/04/17 11/04/17 10:25 11:09 11:09 WBC 11.5 H RBC 2.44 L Hgb 7.1 L Hct 21.7 L MCV 88.8 MCH 28.9 MCHC 32.6 L RDW 18.2 H Plt Count 159 MPV 7.7 Neut % (Auto) 85.4 H Lymph % (Auto) 7.0 L [place] % (Auto) 6.7 Eos % (Auto) 0.4 Baso % (Auto) 0.5 Neut # (Auto) 9.8 H Lymph # (Auto) 0.8 L [place] # (Auto) 0.8 Eos # (Auto) 0.1 Baso # (Auto) 0.1 PT 12.8 INR 1.2 APTT 23.7 L pCO2 45 pO2 158 H HCO3 24.3 ABG pH 7.35 ABG Total CO2 26.2 ABG O2 Saturation 99.2 H ABG Base Excess -0.8 Mariusz Test Yes ABG Potassium 3.9 A-a O2 Difference 14.0 Chloride 105.0 Glucose 105 Lactate 0.7 Vent Mode Nc FiO2 32.0 Arterial Blood Potassium 3.9 Attending/Attestation - Attestation I have personally seen and examined this patient.: Yes I have fully participated in the care of the patient.: Yes I have reviewed all pertinent clinical information: Yes Notes (Text): 11/04/17 11:38 I have seen and examined patient with GI fellow. Agree with above documentation with the following additions. In brief, this is a 67 year old female with history of ESRD on HD, CVA, DM, HTN, Atrial fibrillation, recent ischemic colitis who is sent to hospital for evaluation of rectal bleeding. She was recently admitted at [facility] for similar complaints and hospital course was complicated by cardiac arrest and shock. She underwent colonoscopy on 10/[address] Montanez which showed severe matos ulceration of colon to decending colon. She also apparently underwent EGD which showed jimena ulcer and duodenal ulcer, however report is not available for review. She is seen currently having femoral TLC placed by surgical team. She endorses epigastric sharp abdominal pain, 8/10 intensity along with passage of blood clot via rectum while at TCU rehabilitation. She denies nausea, vomiting but endorses fever and chills. Review of vitals from today shows hypotension, tachycardia. ESRD on HD CVA DM HTN Atrial fibrillation Abdominal pain, rectal bleeding - clincal features suggestive of ischemic colitis given recent endoscopic examination Fever, hypotension - severe acute septic shock posing threat to patient life - NPO - Transfuse 2 units PRBC and continue observation - Obtain lactic acid level - Initiate broad spectrum antibiotic therapy with ceftriaxone / flagyl - Follow up blood cultures - Suggest urgent surgical evaluation given recurrent ischemic episode - Patient should be transferred to intensive care unit for ongoing close observation and critical care support - No planned GI intervention at this time, will continue to monitor patient clinical course
[2017-11-04 11:25] LABS: BASO # 0.1 K/uL (0.0-0.2); BASO % 0.5 % (0.0-2.0); EOS # 0.1 K/uL (0.0-0.7); EOS % 0.4 % (0.0-4.0); HEMOGLOBIN 7.1 g/dL (12.0-16.0); LYMPH # 0.8 K/uL (1.0-4.3); MEAN CELL VOLUME 88.8 fl (81.0-99.0); MEAN CORPUSCULAR HEMOGLOBIN 28.9 pg (27.0-31.0); MEAN CORPUSCULAR HGB CONC 32.6 g/dL (33.0-37.0); MEAN PLATELET VOLUME 7.7 fl (7.2-11.7); MONO # 0.8 K/uL (0.0-0.8); MONO % 6.7 % (0.0-10.0); NEUT # 9.8 K/uL (1.8-7.0); NEUT % 85.4 % (50.0-75.0); RBC 2.44 Mil/uL (3.80-5.20); RED CELL DISTRIBUTION WIDTH 18.2 % (11.5-14.5); WHITE BLOOD COUNT 11.5 K/uL (4.8-10.8)
[2017-11-04] MEDS ORDERED: Desmopressin 4 mcg/ml Inj (10 ml) IV ONE (11:25)
[2017-11-04 11:29] LABS: INR 1.2 (0.9-1.2); PARTIAL THROMBOPLASTIN TIME 23.7 Seconds (25.6-37.1); PROTHROMBIN TIME 12.8 Seconds (9.8-13.1)
--- NOTE | 2017-11-04 11:37 | CP.CCUPN ---
CCU Subjective - Physician Review Subjective (Free Text): 67F transferred from Rehab [place]10[place]30 [place] [facility] [place] [facility] Rehab) for LGI bleeding. Was from [facility] after new CVA with left weakness, also ESRD on HD, A fib , LGIB with ischemic colitis, went into hemorrhagic shock which deteriorated further into cardiac and resp arrest. One week later found to be stable enough to be transferred to [facility] for rehab of acute/subacute R basal ganglia CVA. Prior to transfer, underwent GI eval for LGIB with colonoscopy on 10/26 which noted colonic diverticulosis, internal hemorrhoids and diffuse severe inflammation with ulcerations in the entire colon, severe ischemic colitis mucosal ulcerations up to 40cm dinorah. Notes report persistent abd pain on palpation and rectal bleeding as of 11/02. Transferred to ER this AM and now for ICU mgmt of passage of red clots via rectum and shock state, also assoc fever to 102F. In ER, temp confirmed at 101.7F, BP 88/40 after IVF challenge, HR 102, 98% SPO2 on NC. Other VS and I/Os reviewed. ROS: No other pertinent negs or positives on 10+ system review Allergies: NKDA Rehab meds: Norvasc, Lipitor, Sensipar, Procrit, Gabapentin, Singulair, Protonix , Prednisone, Sevelamer, SSulfadizine crm PMSFH: All other Nursing and physician documentation reviewed to date; no new pertinent info noted relevant to current medical problems. EXAM- HEENT: no icterus, no gaze preference, pupils equal and reactive NECK: No JVD, supple, carotids equal upstroke bilat/no bruits, R IJV dialysis permacath- site clean, no redness / tenderness /discharge CHEST: decreased BS bases, no wheezes audible HEART: regular tachy, distant, S1S2, no rubs. ABD: soft, no distention, no tympany, + palp tenderness periumbilical area, BS hypoactive EXT: Mild R > L LE edema ( had R Fem TLC 2 weeks ago) No peripheral/ digital cyanosis, no calf tenderness or palpable cords, distal pulses intact and symmetrical. LUE AVF NEURO: left hemiparesis, moves R extremities spontaneously SKIN: no rashes, warm and dry. LABS: WBC= 13.1 HGB= 8.5 PLTs= 192K Coags: none ordered /resulted. Pv=053 K= 4.4 CL=96 HCO3= 26 BUN/Cr= 71/6.5 BS= 116 7.35/45/158 on 32% oxygen NC Lactate = 0.7 CXR: Clear lung mcdonnell (my interp) EKG: sinus 89 /min, T wave flattening in III, F, V6- similar to 10/28 study (my interp) IMPRESSION / MAJOR PROBLEMS NOW: 1. Recurrent LGIB 2 Ischemic colitis 2. Hypovolemic Shock 2#1, r/o Severe Sepsis bacteremia with Shock 3. Acute on Chronic Disease Anemia 4. h/o Resuscitation form Cardiac / Resp Arrest 5. ESRD on HD 6. 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 More Volume Expansion, if repeat Hgb falls below 8.0 and still hypotensive after IVFs, give PRBCs first over vasopressors. Check coags, consider DDAVP. 2. Serial Trops, ECHO from 10/20/17 [facility] reviewed. 3. GI and Surgical evals. 4. No signs of perforation, but consider CT AP. Otherwise, NPO / Bowel rest. 5. Panculture, check serial lactate levels, check PCT. Empiric ABx coverage started in ER with Cipro / Flagyl. CCU Objective - Vital Signs / Intake & Output Vital Signs (Last 4 hours): Vital Signs Temp Pulse Resp BP Pulse Ox 11/04/17 11:31 92 H 19 90/40 L 98 11/04/17 11:00 98 H 19 80/40 L 11/04/17 10:59 90 20 80/40 L 97 11/04/17 10:30 92 H 19 90/37 L 100 11/04/17 10:20 98.6 F 90 20 90/40 L 94 L 11/04/17 09:50 90 18 70/32 L 97 Intake and Output (Last 8hrs): Intake & Output 11/03/17 11/04/17 11/04/17 22:59 06:59 14:59 Weight 154 lb 5.177 oz
[2017-11-04] MEDS ORDERED: Desmopressin 20 MCG in Sodium Chloride 0.9% 50 ML IV ONE (11:45)
[2017-11-04 11:53] LABS: ALB/GLOB RATIO 0.7 (1.0-2.1); ALBUMIN 1.8 g/dL (3.5-5.0); CALCIUM 8.4 mg/dL (8.4-10.2)
[2017-11-04 12:07] LABS: TROPONIN I 0.12 ng/mL (0.00-0.120)
--- NOTE | 2017-11-04 12:20 | RAD ---
HISTORY: Sepsis Patient COMPARISON: No prior. FINDINGS: The right-sided dialysis catheter terminates in the right atrium. LUNGS: The lungs are well inflated. There is mild pulmonary venous congestion. No focal consolidation. PLEURA: No significant pleural effusion identified, no pneumothorax apparent. CARDIOVASCULAR: The heart is normal in size. Atherosclerotic aortic arch calcifications are present. OSSEOUS STRUCTURES: No significant abnormalities. VISUALIZED UPPER ABDOMEN: Normal. OTHER FINDINGS: None. IMPRESSION: Right-sided dialysis catheter terminates in the right atrium. Mild pulmonary venous congestion. No active pulmonary disease.
--- NOTE | 2017-11-04 12:54 | CP.PCM.CON ---
History of Present Illness - History of Present Illness History of Present Illness: SURGERY CONSULT NOTE FOR DR. TILLEY 67F presents to ED with bleeding per rectum. Patient was recently in [facility] 2 weeks ago for hemorrhagic shock secondary to GI bleed also. While she was there, she coded and CPR was initiated and she was intubated. During that time she also suffered stroke, an ischemic infarct to the right basal ganglia. Patient underwent a colonoscopy there which showed severe ischemic colitis up into the descending colon. Colonoscope was not advanced farther than that point. She was in the rehab floor in [facility] when she began bleeding per rectum again and became hypotensive as low as 70s systolic. Currently in the ED, she denies nausea, vomiting, states most of her pain are left sided ribs pains from when CPR was done. PMH: CVA, ESRD on HD, Ihre9RA, HTN, A-fib, GI bleed PSH: Left arm AVF, right IJ tunneled HD catheter, lumpectomy, multiple IR attempts at venoplasty for CV stenosis for malfunctioning AV graft Social: No history of tobacco, ETOH, or drug abuse. Lives with family Allergies: Latex, Natural rubber Past Patient History - Infectious Disease Hx of Infectious Diseases: None - Tetanus Immunizations Tetanus Immunization: Up to Date - Past Medical History & Family History Past Medical History?: Yes - Past Social History Smoking Status: Never Smoked - CARDIAC Hx Cardia Arrhythmia: No Hx Congestive Heart Failure: No Hx Hypercholesterolemia: Yes Hx Hypertension: Yes Hx Mitral Valve Prolapse: No Hx Pacemaker: No Hx Peripheral Edema: No - PULMONARY Hx Asthma: Yes Hx Bronchitis: No Hx Chronic Obstructive Pulmonary Disease (COPD): No Hx Emphysema: No Hx Pneumonia: No Hx Sleep Apnea: No - NEUROLOGICAL Hx Alzheimer's Disease: No Hx Dementia: No Hx Migraine: No Hx Parkinson's Disease: No Hx Seizures: No Hx Transient Ischemic Attacks (TIA): Yes - HEENT Hx HEENT Problems: No - RENAL Hx Chronic Kidney Disease: Yes Hx Kidney Stones: No - ENDOCRINE/METABOLIC Hx Hyperthyroidism: No Hx Hypothyroidism: Yes - HEMATOLOGICAL/ONCOLOGICAL Hx Anemia: Yes (secondary to rectal bleeding-resolved.) Hx Human Immunodeficiency Virus (HIV): No Hx Sickle Cell Disease: No - INTEGUMENTARY Hx Dermatological Problems: No - MUSCULOSKELETAL/RHEUMATOLOGICAL Hx Arthritis: No Hx Fractures: No Hx Osteoporosis: No - GASTROINTESTINAL Hx Crohn's Disease: No Hx Diverticulitis: Yes Hx Gall Bladder Disease: No Hx Pancreatitis: No - GENITOURINARY/GYNECOLOGICAL Hx Sexually Transmitted Disorders: No - PSYCHIATRIC Hx Anxiety: No Hx Bipolar Disorder: No Hx Depression: No Hx Paranoia: No Hx Post Traumatic Stress Disorder: No Hx Schizophrenia: No - SURGICAL HISTORY Hx Appendectomy: No Hx Cholecystectomy: No Hx Coronary Stent: No - ANESTHESIA Hx Anesthesia Reactions: No Hx Malignant Hyperthermia: No Meds Allergies/Adverse Reactions: Allergies Allergy/AdvReac Type Severity Reaction Status Date / Time Latex, Natural Rubber Allergy Unknown RASH Verified 10/26/17 14:13 - Medications Medications: Current Medications Metronidazole (Flagyl 500mg/100ml Ns) 100 mls @ 100 mls/hr IVPB Q8 ROBBI PRN Reason: Protocol Dextrose/Sodium Chloride (Dextrose 5%/0.9% Ns 1000 Ml) 1,000 mls @ 125 mls/hr IV .Q8H ROBBI Stop: 11/05/17 11:31 Ceftriaxone Sodium 1 gm/ (Sodium Chloride) 100 mls @ 100 mls/hr IVPB DAILY ROBBI PRN Reason: Protocol Pantoprazole Sodium (Protonix Inj) 40 mg IVP DAILY [facility] Last Admin: 11/04/17 11:49 Dose: 40 mg Physical Exam - Constitutional Appears: Well, Non-toxic, No Acute Distress - Head Exam Head Exam: ATRAUMATIC - Respiratory Exam Respiratory Exam: Clear to Auscultation Bilateral, NORMAL BREATHING PATTERN - Cardiovascular Exam Cardiovascular Exam: REGULAR RHYTHM, +S1, +S2 Additional comments: tenderness on left chest right IJ tunneled catheter - GI/Abdominal Exam GI & Abdominal Exam: Soft. absent: Distended, Firm, Guarding, Rebound, Rigid, Tenderness - Rectal Exam Additional comments: Clots per rectum Hemorrhoids - Extremities Exam Extremities exam: Negative for: pedal edema, tenderness - Neurological Exam Neurological exam: Oriented x3 - Psychiatric Exam Psychiatric exam: Normal Affect, Normal Mood Additional comments: droswy - Skin Skin Exam: Dry, Intact, Normal Color, Warm Results - Vital Signs Recent Vital Signs: Last Vital Signs Temp 98 F 11/04/17 12:11 Pulse 86 11/04/17 12:11 Resp 20 11/04/17 11:44 BP 90/38 L 11/04/17 12:11 Pulse Ox 99 11/04/17 12:11 - Labs Result Diagrams: 11/04/17 11:09 11/04/17 11:09 Labs: Laboratory Results - last 24 hr 11/04/17 11/04/17 11/04/17 10:25 11:09 11:09 WBC 11.5 H RBC 2.44 L Hgb 7.1 L Hct 21.7 L MCV 88.8 MCH 28.9 MCHC 32.6 L RDW 18.2 H Plt Count 159 MPV 7.7 Neut % (Auto) 85.4 H Lymph % (Auto) 7.0 L [place] % (Auto) 6.7 Eos % (Auto) 0.4 Baso % (Auto) 0.5 Neut # (Auto) 9.8 H Lymph # (Auto) 0.8 L [place] # (Auto) 0.8 Eos # (Auto) 0.1 Baso # (Auto) 0.1 PT INR APTT pCO2 45 pO2 158 H HCO3 24.3 ABG pH 7.35 ABG Total CO2 26.2 ABG O2 Saturation 99.2 H ABG Base Excess -0.8 Mariusz Test Yes ABG Potassium 3.9 A-a O2 Difference 14.0 Chloride 105.0 101 Glucose 105 Lactate 0.7 Vent Mode Nc FiO2 32.0 Sodium 137 Potassium 4.0 Carbon Dioxide 23 Anion Gap 17 BUN 68 H Creatinine 5.9 H Est GFR ( Amer) 9 Est GFR (Non-Af Amer) 7 Random Glucose 102 Calcium 8.4 Phosphorus 4.3 Magnesium 2.0 Total Bilirubin 0.4 AST 15 ALT 36 Alkaline Phosphatase 65 Troponin I 0.1200 Total Protein 4.3 L Albumin 1.8 L Globulin 2.5 Albumin/Globulin Ratio 0.7 L Arterial Blood Potassium 3.9 11/04/17 11:09 WBC RBC Hgb Hct MCV MCH MCHC RDW Plt Count MPV Neut % (Auto) Lymph % (Auto) [place] % (Auto) Eos % (Auto) Baso % (Auto) Neut # (Auto) Lymph # (Auto) [place] # (Auto) Eos # (Auto) Baso # (Auto) PT 12.8 INR 1.2 APTT 23.7 L pCO2 pO2 HCO3 ABG pH ABG Total CO2 ABG O2 Saturation ABG Base Excess Mariusz Test ABG Potassium A-a O2 Difference Chloride Glucose Lactate Vent Mode FiO2 Sodium Potassium Carbon Dioxide Anion Gap BUN Creatinine Est GFR ( Amer) Est GFR (Non-Af Amer) Random Glucose Calcium Phosphorus Magnesium Total Bilirubin AST ALT Alkaline Phosphatase Troponin I Total Protein Albumin Globulin Albumin/Globulin Ratio Arterial Blood Potassium Assessment & Plan - Assessment and Plan (Free Text) Assessment: 67F presents with hemorrhagic show 2/2 GI bleed likely due to ischemic colitis Colonoscopy 10/26/17 - severe ischemic colitis up till at least the descending colon Plan: - NPO, IVF, UO - 4pRBCs in next 24 hours at least - Monitor vitals - maintain SBP above 100 - serial abdominal exams - CVVH if patient needs dialysis if available Further recs discuss with Dr. [place] Bernstein, PGY2
[2017-11-04] MEDS: Dextrose 5%/0.9% NS 1,000 ML IV SCH (13:06)
[2017-11-04] MEDS ORDERED: Sodium Chloride 0.9% 500 ML IV ONE (13:10)
--- NOTE | 2017-11-04 14:11 | CP.PCM.HP ---
History of Present Illness - History of Present Illness History of Present Illness: PCP: Dr. Devin Sam CC: Sepsis 67 yo female with multiple medical problems with history of new CVA with right MCA distribution that was initially admitted to [facility] acute rehab for PT/OT. Her past medical history includes ESRD on dialysis, Type 2 DM, HTN, obesity, history of old CVA in 2011, atrial fibrillation, GI bleed with hemorrhagic shock just last week at [facility]. During that time the patient had an episode of cardiac arrest and respiratory failure and required intubation and hemodynamic monitoring in the ICU due to hypotensive shock from extravasation. She developed ischemic colitis that was diagnosed with colonoscopy .At present patient continues to have rectal bleed , started to have fever today, 11/04/2017 , with Tmax 102. She continues to have minimal lower abdominal tenderness with palpation and her BP is in the lower side.. Her H& H remains stable. Full septic panel was ordered , Cipro and Flagyl given and IVF ( bolus started ). Patient was then sent to [facility] ED from rehab as she will require ICU admission for sepsis and GI bleed. In the ED the patient had temp of 101.7, BP 88.40 after IV fluid challenge, tachycardic at 102, and 98% SPO2 on NC. Subsequently admitted to ICU. Present on Admission - Present on Admission Any Indicators Present on Admission: No Review of Systems - Review of Systems Systems not reviewed;Unavailable: Acuity of Condition, Unstable Vital Signs Past Patient History - Infectious Disease Hx of Infectious Diseases: None - Tetanus Immunizations Tetanus Immunization: Up to Date - Past Medical History & Family History Past Medical History?: Yes - Past Social History Smoking Status: Never Smoked - CARDIAC Hx Cardia Arrhythmia: No Hx Congestive Heart Failure: No Hx Hypercholesterolemia: Yes Hx Hypertension: Yes Hx Mitral Valve Prolapse: No Hx Pacemaker: No Hx Peripheral Edema: No - PULMONARY Hx Asthma: Yes Hx Bronchitis: No Hx Chronic Obstructive Pulmonary Disease (COPD): No Hx Emphysema: No Hx Pneumonia: No Hx Sleep Apnea: No - NEUROLOGICAL Hx Alzheimer's Disease: No Hx Dementia: No Hx Migraine: No Hx Parkinson's Disease: No Hx Seizures: No Hx Transient Ischemic Attacks (TIA): Yes - HEENT Hx HEENT Problems: No - RENAL Hx Chronic Kidney Disease: Yes Hx Kidney Stones: No - ENDOCRINE/METABOLIC Hx Hyperthyroidism: No Hx Hypothyroidism: Yes - HEMATOLOGICAL/ONCOLOGICAL Hx Anemia: Yes (secondary to rectal bleeding-resolved.) Hx Human Immunodeficiency Virus (HIV): No Hx Sickle Cell Disease: No - INTEGUMENTARY Hx Dermatological Problems: No - MUSCULOSKELETAL/RHEUMATOLOGICAL Hx Arthritis: No Hx Fractures: No Hx Osteoporosis: No - GASTROINTESTINAL Hx Crohn's Disease: No Hx Diverticulitis: Yes Hx Gall Bladder Disease: No Hx Pancreatitis: No - GENITOURINARY/GYNECOLOGICAL Hx Sexually Transmitted Disorders: No - PSYCHIATRIC Hx Anxiety: No Hx Bipolar Disorder: No Hx Depression: No Hx Paranoia: No Hx Post Traumatic Stress Disorder: No Hx Schizophrenia: No - SURGICAL HISTORY Hx Appendectomy: No Hx Cholecystectomy: No Hx Coronary Stent: No - ANESTHESIA Hx Anesthesia Reactions: No Hx Malignant Hyperthermia: No Meds Allergies/Adverse Reactions: Allergies Allergy/AdvReac Type Severity Reaction Status Date / Time Latex, Natural Rubber Allergy Unknown RASH Verified 10/26/17 14:13 Physical Exam - Additional Findings Additional findings: Physical exam: Constitutional- cooperative, awake, alert Head- NCAT, Pupils equal and reactive Eye- PERRL, EOMI ENT- normal exam, MMM. Neck- normal inspection, supple, no JVD. Right IJ Permacath Respiratory- CTAB, no wheezes rales rhonchi Cardiovascular- tachy, regular rhythm, +S1, +S2 no MRG GI/Abdominal- diffusely tender abdomen, normal bowel sounds, soft, no mass, no hsm Skin- warm, dry Extremities Exam- mild right leg edema, no left leg edema, normal capillary refill, normal inspection Neurological Exam- alert, awake, oriented Results - Vital Signs Recent Vital Signs: Last Vital Signs Temp 98 F 11/04/17 12:11 Pulse 86 11/04/17 12:11 Resp 20 11/04/17 11:44 BP 90/38 L 11/04/17 12:11 Pulse Ox 99 11/04/17 12:11 - Labs Result Diagrams: 11/04/17 11:09 11/04/17 11:09 Labs: Laboratory Results - last 24 hr 11/04/17 11/04/17 11/04/17 10:25 11:09 11:09 WBC 11.5 H RBC 2.44 L Hgb 7.1 L Hct 21.7 L MCV 88.8 MCH 28.9 MCHC 32.6 L RDW 18.2 H Plt Count 159 MPV 7.7 Neut % (Auto) 85.4 H Lymph % (Auto) 7.0 L [place] % (Auto) 6.7 Eos % (Auto) 0.4 Baso % (Auto) 0.5 Neut # (Auto) 9.8 H Lymph # (Auto) 0.8 L [place] # (Auto) 0.8 Eos # (Auto) 0.1 Baso # (Auto) 0.1 PT INR APTT pCO2 45 pO2 158 H HCO3 24.3 ABG pH 7.35 ABG Total CO2 26.2 ABG O2 Saturation 99.2 H ABG Base Excess -0.8 Mariusz Test Yes ABG Potassium 3.9 A-a O2 Difference 14.0 Chloride 105.0 101 Glucose 105 Lactate 0.7 Vent Mode Nc FiO2 32.0 Sodium 137 Potassium 4.0 Carbon Dioxide 23 Anion Gap 17 BUN 68 H Creatinine 5.9 H Est GFR ( Amer) 9 Est GFR (Non-Af Amer) 7 Random Glucose 102 Calcium 8.4 Phosphorus 4.3 Magnesium 2.0 Total Bilirubin 0.4 AST 15 ALT 36 Alkaline Phosphatase 65 Troponin I 0.1200 Total Protein 4.3 L Albumin 1.8 L Globulin 2.5 Albumin/Globulin Ratio 0.7 L Arterial Blood Potassium 3.9 11/04/17 11:09 WBC RBC Hgb Hct MCV MCH MCHC RDW Plt Count MPV Neut % (Auto) Lymph % (Auto) [place] % (Auto) Eos % (Auto) Baso % (Auto) Neut # (Auto) Lymph # (Auto) [place] # (Auto) Eos # (Auto) Baso # (Auto) PT 12.8 INR 1.2 APTT 23.7 L pCO2 pO2 HCO3 ABG pH ABG Total CO2 ABG O2 Saturation ABG Base Excess Mariusz Test ABG Potassium A-a O2 Difference Chloride Glucose Lactate Vent Mode FiO2 Sodium Potassium Carbon Dioxide Anion Gap BUN Creatinine Est GFR ( Amer) Est GFR (Non-Af Amer) Random Glucose Calcium Phosphorus Magnesium Total Bilirubin AST ALT Alkaline Phosphatase Troponin I Total Protein Albumin Globulin Albumin/Globulin Ratio Arterial Blood Potassium Assessment & Plan - Assessment and Plan (Free Text) Plan: 67 yo female with multiple medical problems with history of new CVA with right MCA distribution that was initially admitted to [facility] acute rehab for PT/OT. Her past medical history includes ESRD on dialysis, Type 2 DM, HTN, obesity, history of old CVA in 2011, atrial fibrillation, GI bleed with hemorrhagic shock just last week at [facility]. She was sent to rehab afterwards but now appears to be developing hypovolemic shock due to LGIB and ischemic colitis , rule out severe sepsis with bateremia 1) Recurrent lower GI bleed due to ischemic colitis, r/o severe sepsis - Admit to ICU with Dr. Henderson on consultation for phone operator - Transfuse 2 units PRBC stat - Aggressive volume expansion followed by Levophed if hypotension persists. - Serial troponins - Dr. Gamez on consultation for GI - Surgical consultation - NPO status - Desmopressin - Panculture, lactic acid - Cipro/Flagyl started in ED 2. Acute on chronic anemia - GI blood loss on top of kidney disease anemia - Blood transfusion 3. History of recent cardiac arrest/respiratory arrest - chronic 4. ESRD on Dialysis MWF - continue Nephro consultation from rehab admission - caution with fluid boluses for sepsis as fluid overload is a concern 5. History of R CVA 10/24/17 - chronic 6. H/o hypoxic encephalopathy - satting well currently on nasal cannula 7. DVT prophylaxis - SCDs
[2017-11-04] MEDS: metroNIDAZOLE 500mg/100ml NS 100 ML IVPB SCH (16:07)
[2017-11-04] MEDS: Insulin Regular 100 units/ml SC SCH (16:08)
[2017-11-04 17:50] LABS: BASO # 0.1 K/uL (0.0-0.2); BASO % 0.4 % (0.0-2.0); EOS % 0.3 % (0.0-4.0); LYMPH # 0.7 K/uL (1.0-4.3); LYMPH % 4.5 % (20.0-40.0); MEAN CELL VOLUME 90.6 fl (81.0-99.0); MEAN CORPUSCULAR HEMOGLOBIN 29.3 pg (27.0-31.0); MEAN CORPUSCULAR HGB CONC 32.4 g/dL (33.0-37.0); MEAN PLATELET VOLUME 7.7 fl (7.2-11.7); NEUT # 14.1 K/uL (1.8-7.0); NEUT % 88.8 % (50.0-75.0); RBC 3.35 Mil/uL (3.80-5.20); RED CELL DISTRIBUTION WIDTH 15.9 % (11.5-14.5); WHITE BLOOD COUNT 15.8 K/uL (4.8-10.8)
[2017-11-04 17:58] LABS: HEMOGLOBIN 9.8 g/dL (12.0-16.0)
[2017-11-04 18:15] LABS: SQUAMOUS EPITHIAL < 1 /hpf (0-5); URINE BILIRUBIN NEGATIVE (NEGATIVE); URINE BLOOD NEGATIVE (NEGATIVE); URINE CLARITY SLIGHTY-CLOUDY (Clear); URINE COLOR YELLOW (YELLOW); URINE GLUCOSE (UA) >=500 mg/dL (Normal); URINE LEUKOCYTE ESTERASE NEG Leu/uL (Negative); URINE PROTEIN 100 mg/dL (NEGATIVE); URINE UROBILINOGEN 0.2-1.0 mg/dL (0.2-1.0)
[2017-11-05 00:53] LABS: BASO % 0.3 % (0.0-2.0); EOS # 0.1 K/uL (0.0-0.7); EOS % 0.6 % (0.0-4.0); LYMPH # 0.6 K/uL (1.0-4.3); LYMPH % 4.6 % (20.0-40.0); MEAN CELL VOLUME 90.5 fl (81.0-99.0); MEAN CORPUSCULAR HEMOGLOBIN 29.2 pg (27.0-31.0); MEAN CORPUSCULAR HGB CONC 32.2 g/dL (33.0-37.0); MEAN PLATELET VOLUME 7.7 fl (7.2-11.7); MONO # 1.2 K/uL (0.0-0.8); MONO % 8.8 % (0.0-10.0); NEUT # 12.1 K/uL (1.8-7.0); NEUT % 85.7 % (50.0-75.0); NRBC % 0.1 % (0.0-0.0); RBC 3.42 Mil/uL (3.80-5.20); RED CELL DISTRIBUTION WIDTH 16.6 % (11.5-14.5); WHITE BLOOD COUNT 14.1 K/uL (4.8-10.8)
[2017-11-05] MEDS: metroNIDAZOLE 500mg/100ml NS 100 ML IVPB SCH ×3 (01:05→16:12)
[2017-11-05] MEDS: Insulin Regular 100 units/ml SC SCH ×4 (01:16→23:48)
[2017-11-05] MEDS: Dextrose 5%/0.9% NS 1,000 ML IV SCH ×2 (06:11→22:43)
--- NOTE | 2017-11-05 07:32 | CP.CCUPN ---
CCU Subjective - Physician Review Events Since Last Encounter (Free Text): 11/05/17 17:44 The patient was Seen and examined by me at the bedside, Medical records reviewed and Management issues were discussed and formulated with the house staff. Events reviewed Afebrile, NSR on the monitor Received total 4 unites packed RBC Afebrile NSR on the monitor, BP stable, patient is not tachcardic or hypotensive. No evidance of active bleeding overnight CCU Objective - Vital Signs / Intake & Output Vital Signs (Last 4 hours): Vital Signs Temp Pulse Resp BP Pulse Ox 11/05/17 07:00 110 H 18 106/61 100 11/05/17 06:00 93 H 18 116/82 99 11/05/17 05:00 84 16 125/56 L 99 11/05/17 04:00 98.0 F 84 16 118/65 99 Intake and Output (Last 8hrs): Intake & Output 11/04/17 11/05/17 11/05/17 22:59 06:59 14:59 Intake Total 1424 2001 Output Total 5 Balance 1419 2001 Intake: IV 1074 1402 Intake, Piggyback 100 Blood Product 350 500 Output: Urine 5 Urethral (Poe) 5 Other: # Bowel Movements 1 1 - Physical Exam Head: Positive for: Atraumatic, Normocephalic Pupils: Positive for: PERRL Extroacular Muscles: Positive for: EOMI Conjunctiva: Positive for: Normal. Negative for: Injected, Icteric Mouth: Positive for: Moist Mucous Membranes Nose (Internal): Positive for: Normal Inspection Neck: Positive for: Normal Range of Motion, Trachea Midline. Negative for: Meningeal Signs, MIDLINE TENDERNESS, Paraspinal Tenderness, JVD, Lymphadenopathy , Bruit, Other Respiratory/Chest: Positive for: Clear to Auscultation, Good Air Exchange. Negative for: Respiratory Distress, Accessory Muscle Use Cardiovascular: Positive for: Regular Rate and Rhythm, Normal S1, S2, Peripheal Pulses Present. Negative for: Murmurs, Irregular Rhythm Upper Extremity: Positive for: Normal Inspection Lower Extremity: Positive for: Normal Inspection Neurological: Positive for: GCS=15, CN II-XII Intact, Speech Normal, Motor Func Grossly Intact, Normal Sensory Function - Medications Active Medications: Active Medications Generic Name Dose Route Start Last Admin Trade Name Freq PRN Reason Stop Dose Admin Metronidazole 100 mls @ 100 mls/hr 11/04/17 17:00 11/05/17 01:05 Flagyl 500mg/100ml Ns IVPB 100 mls/hr Q8 ROBBI Administration Protocol Dextrose/Sodium Chloride 1,000 mls @ 125 mls/hr 11/04/17 11:45 11/05/17 06:11 Dextrose 5%/0.9% Ns 1000 Ml IV 11/05/17 11:31 125 mls/hr .Q8H ROBBI Administration Ceftriaxone Sodium 1 gm/ 100 mls @ 100 mls/hr 11/04/17 12:00 11/04/17 14:18 Sodium Chloride IVPB 100 mls/hr DAILY ROBBI Administration Protocol Norepinephrine Bitartrate 4 mg 254 mls @ 9.52 mls/hr 11/04/17 13:15 11/05/17 06:11 / Dextrose IV 5 mcg/min .Q24H ROBBI 19.05 mls/hr Protocol Administration 2.5 MCG/MIN Insulin Human Regular 0 units 11/04/17 17:00 11/05/17 01:16 Humulin R SC Not Given ACCU-CHECK ROBBI Protocol Pantoprazole Sodium 40 mg 11/04/17 11:30 11/04/17 11:49 Protonix Inj IVP 40 mg DAILY ROBBI Administration - Patient Studies Lab Studies: Lab Studies 11/04/17 11/04/17 11/04/17 Range/Units 23:28 20:52 17:59 WBC 14.1 H (4.8-10.8) K/uL RBC 3.42 L (3.80-5.20) Mil/uL Hgb 10.0 L (12.0-16.0) g/dL Hct 31.0 L (34.0-47.0) % MCV 90.5 (81.0-99.0) fl MCH 29.2 (27.0-31.0) pg MCHC 32.2 L (33.0-37.0) g/dL RDW 16.6 H (11.5-14.5) % Plt Count 156 (130-400) K/uL MPV 7.7 (7.2-11.7) fl Neut % (Auto) 85.7 H (50.0-75.0) % Lymph % (Auto) 4.6 L (20.0-40.0) % [place] % (Auto) 8.8 (0.0-10.0) % Eos % (Auto) 0.6 (0.0-4.0) % Baso % (Auto) 0.3 (0.0-2.0) % Neut # (Auto) 12.1 H (1.8-7.0) K/uL Lymph # (Auto) 0.6 L (1.0-4.3) K/uL [place] # (Auto) 1.2 H (0.0-0.8) K/uL Eos # (Auto) 0.1 (0.0-0.7) K/uL Baso # (Auto) 0.0 (0.0-0.2) K/uL PT (9.8-13.1) Seconds INR (0.9-1.2) APTT (25.6-37.1) Seconds pCO2 (35-45) mm/Hg pO2 (80-100) mm/Hg HCO3 (21-28) mmol/L ABG pH (7.35-7.45) ABG Total CO2 (22-28) mmol/L ABG O2 Saturation (95-98) % ABG Base Excess (-2.0-3.0) mmol/L Mariusz Test ABG Potassium (3.6-5.2) mmol/L A-a O2 Difference mm/Hg Chloride (98-107) mmol/L Glucose (65-105) mg/dL Lactate (0.7-2.1) mmol/L Vent Mode FiO2 % Sodium (132-148) mmol/l Potassium (3.6-5.0) MMOL/L Carbon Dioxide (22-30) mmol/L Anion Gap (10-20) BUN (7-17) mg/dl Creatinine (0.7-1.2) mg/dl Est GFR ( Amer) Est GFR (Non-Af Amer) POC Glucose (mg/dL) 162 H (65-110) mg/dL Random Glucose (65-105) mg/dL Lactic Acid (0.7-2.1) MMOL/L Calcium (8.4-10.2) mg/dL Phosphorus (2.5-4.5) mg/dl Magnesium (1.6-2.3) MG/DL Total Bilirubin (0.2-1.3) mg/dl AST (14-36) U/L ALT (9-52) U/L Alkaline Phosphatase (38-126) U/L Troponin I (0.00-0.120) ng/mL Total Protein (6.3-8.2) G/DL Albumin (3.5-5.0) g/dL Globulin (2.2-3.9) gm/dL Albumin/Globulin Ratio (1.0-2.1) Arterial Blood Potassium (3.6-5.2) mmol/L Urine Color Yellow (YELLOW) Urine Clarity Slighty-cloudy (Clear) Urine pH 7.0 (5.0-8.0) Ur Specific [place] 1.009 (1.003-1.030) Urine Protein 100 (NEGATIVE) mg/dL Urine Glucose (UA) >=500 (Normal) mg/dL Urine Ketones Negative (NEGATIVE) mg/dL Urine Blood Negative (NEGATIVE) Urine Nitrate Negative (NEGATIVE) Urine Bilirubin Negative (NEGATIVE) Urine Urobilinogen 0.2-1.0 (0.2-1.0) mg/dL Ur Leukocyte Esterase Neg (Negative) Nidia/uL Urine RBC (Auto) 1 (0-3) /hpf Urine Microscopic WBC 4 (0-5) /hpf Ur Squamous Epith Cells < 1 (0-5) /hpf 11/04/17 11/04/17 11/04/17 Range/Units 17:45 17:30 15:37 WBC 15.8 H (4.8-10.8) K/uL RBC 3.35 L (3.80-5.20) Mil/uL Hgb 9.8 L D (12.0-16.0) g/dL Hct 30.3 L (34.0-47.0) % MCV 90.6 (81.0-99.0) fl MCH 29.3 (27.0-31.0) pg MCHC 32.4 L (33.0-37.0) g/dL RDW 15.9 H (11.5-14.5) % Plt Count 160 (130-400) K/uL MPV 7.7 (7.2-11.7) fl Neut % (Auto) 88.8 H (50.0-75.0) % Lymph % (Auto) 4.5 L (20.0-40.0) % [place] % (Auto) 6.0 (0.0-10.0) % Eos % (Auto) 0.3 (0.0-4.0) % Baso % (Auto) 0.4 (0.0-2.0) % Neut # (Auto) 14.1 H (1.8-7.0) K/uL Lymph # (Auto) 0.7 L (1.0-4.3) K/uL [place] # (Auto) 1.0 H (0.0-0.8) K/uL Eos # (Auto) 0.0 (0.0-0.7) K/uL Baso # (Auto) 0.1 (0.0-0.2) K/uL PT (9.8-13.1) Seconds INR (0.9-1.2) APTT (25.6-37.1) Seconds pCO2 (35-45) mm/Hg pO2 (80-100) mm/Hg HCO3 (21-28) mmol/L ABG pH (7.35-7.45) ABG Total CO2 (22-28) mmol/L ABG O2 Saturation (95-98) % ABG Base Excess (-2.0-3.0) mmol/L Mariusz Test ABG Potassium (3.6-5.2) mmol/L A-a O2 Difference mm/Hg Chloride (98-107) mmol/L Glucose (65-105) mg/dL Lactate (0.7-2.1) mmol/L Vent Mode FiO2 % Sodium (132-148) mmol/l Potassium (3.6-5.0) MMOL/L Carbon Dioxide (22-30) mmol/L Anion Gap (10-20) BUN (7-17) mg/dl Creatinine (0.7-1.2) mg/dl Est GFR ( Amer) Est GFR (Non-Af Amer) POC Glucose (mg/dL) 105 (65-110) mg/dL Random Glucose (65-105) mg/dL Lactic Acid 0.7 (0.7-2.1) MMOL/L Calcium (8.4-10.2) mg/dL Phosphorus (2.5-4.5) mg/dl Magnesium (1.6-2.3) MG/DL Total Bilirubin (0.2-1.3) mg/dl AST (14-36) U/L ALT (9-52) U/L Alkaline Phosphatase (38-126) U/L Troponin I (0.00-0.120) ng/mL Total Protein (6.3-8.2) G/DL Albumin (3.5-5.0) g/dL Globulin (2.2-3.9) gm/dL Albumin/Globulin Ratio (1.0-2.1) Arterial Blood Potassium (3.6-5.2) mmol/L Urine Color (YELLOW) Urine Clarity (Clear) Urine pH (5.0-8.0) Ur Specific [place] (1.003-1.030) Urine Protein (NEGATIVE) mg/dL Urine Glucose (UA) (Normal) mg/dL Urine Ketones (NEGATIVE) mg/dL Urine Blood (NEGATIVE) Urine Nitrate (NEGATIVE) Urine Bilirubin (NEGATIVE) Urine Urobilinogen (0.2-1.0) mg/dL Ur Leukocyte Esterase (Negative) Nidia/uL Urine RBC (Auto) (0-3) /hpf Urine Microscopic WBC (0-5) /hpf Ur Squamous Epith Cells (0-5) /hpf 11/04/17 11/04/17 11/04/17 Range/Units 11:09 11:09 11:09 WBC 11.5 H (4.8-10.8) K/uL RBC 2.44 L (3.80-5.20) Mil/uL Hgb 7.1 L (12.0-16.0) g/dL Hct 21.7 L (34.0-47.0) % MCV 88.8 (81.0-99.0) fl MCH 28.9 (27.0-31.0) pg MCHC 32.6 L (33.0-37.0) g/dL RDW 18.2 H (11.5-14.5) % Plt Count 159 (130-400) K/uL MPV 7.7 (7.2-11.7) fl Neut % (Auto) 85.4 H (50.0-75.0) % Lymph % (Auto) 7.0 L (20.0-40.0) % [place] % (Auto) 6.7 (0.0-10.0) % Eos % (Auto) 0.4 (0.0-4.0) % Baso % (Auto) 0.5 (0.0-2.0) % Neut # (Auto) 9.8 H (1.8-7.0) K/uL Lymph # (Auto) 0.8 L (1.0-4.3) K/uL [place] # (Auto) 0.8 (0.0-0.8) K/uL Eos # (Auto) 0.1 (0.0-0.7) K/uL Baso # (Auto) 0.1 (0.0-0.2) K/uL PT 12.8 (9.8-13.1) Seconds INR 1.2 (0.9-1.2) APTT 23.7 L (25.6-37.1) Seconds pCO2 (35-45) mm/Hg pO2 (80-100) mm/Hg HCO3 (21-28) mmol/L ABG pH (7.35-7.45) ABG Total CO2 (22-28) mmol/L ABG O2 Saturation (95-98) % ABG Base Excess (-2.0-3.0) mmol/L Mariusz Test ABG Potassium (3.6-5.2) mmol/L A-a O2 Difference mm/Hg Chloride 101 (98-107) mmol/L Glucose (65-105) mg/dL Lactate (0.7-2.1) mmol/L Vent Mode FiO2 % Sodium 137 (132-148) mmol/l Potassium 4.0 (3.6-5.0) MMOL/L Carbon Dioxide 23 (22-30) mmol/L Anion Gap 17 (10-20) BUN 68 H (7-17) mg/dl Creatinine 5.9 H (0.7-1.2) mg/dl Est GFR ( Amer) 9 Est GFR (Non-Af Amer) 7 POC Glucose (mg/dL) (65-110) mg/dL Random Glucose 102 (65-105) mg/dL Lactic Acid (0.7-2.1) MMOL/L Calcium 8.4 (8.4-10.2) mg/dL Phosphorus 4.3 (2.5-4.5) mg/dl Magnesium 2.0 (1.6-2.3) MG/DL Total Bilirubin 0.4 (0.2-1.3) mg/dl AST 15 (14-36) U/L ALT 36 (9-52) U/L Alkaline Phosphatase 65 (38-126) U/L Troponin I 0.1200 (0.00-0.120) ng/mL Total Protein 4.3 L (6.3-8.2) G/DL Albumin 1.8 L (3.5-5.0) g/dL Globulin 2.5 (2.2-3.9) gm/dL Albumin/Globulin Ratio 0.7 L (1.0-2.1) Arterial Blood Potassium (3.6-5.2) mmol/L Urine Color (YELLOW) Urine Clarity (Clear) Urine pH (5.0-8.0) Ur Specific [place] (1.003-1.030) Urine Protein (NEGATIVE) mg/dL Urine Glucose (UA) (Normal) mg/dL Urine Ketones (NEGATIVE) mg/dL Urine Blood (NEGATIVE) Urine Nitrate (NEGATIVE) Urine Bilirubin (NEGATIVE) Urine Urobilinogen (0.2-1.0) mg/dL Ur Leukocyte Esterase (Negative) Nidia/uL Urine RBC (Auto) (0-3) /hpf Urine Microscopic WBC (0-5) /hpf Ur Squamous Epith Cells (0-5) /hpf 11/04/17 Range/Units 10:25 WBC (4.8-10.8) K/uL RBC (3.80-5.20) Mil/uL Hgb (12.0-16.0) g/dL Hct (34.0-47.0) % MCV (81.0-99.0) fl MCH (27.0-31.0) pg MCHC (33.0-37.0) g/dL RDW (11.5-14.5) % Plt Count (130-400) K/uL MPV (7.2-11.7) fl Neut % (Auto) (50.0-75.0) % Lymph % (Auto) (20.0-40.0) % [place] % (Auto) (0.0-10.0) % Eos % (Auto) (0.0-4.0) % Baso % (Auto) (0.0-2.0) % Neut # (Auto) (1.8-7.0) K/uL Lymph # (Auto) (1.0-4.3) K/uL [place] # (Auto) (0.0-0.8) K/uL Eos # (Auto) (0.0-0.7) K/uL Baso # (Auto) (0.0-0.2) K/uL PT (9.8-13.1) Seconds INR (0.9-1.2) APTT (25.6-37.1) Seconds pCO2 45 (35-45) mm/Hg pO2 158 H (80-100) mm/Hg HCO3 24.3 (21-28) mmol/L ABG pH 7.35 (7.35-7.45) ABG Total CO2 26.2 (22-28) mmol/L ABG O2 Saturation 99.2 H (95-98) % ABG Base Excess -0.8 (-2.0-3.0) mmol/L Mariusz Test Yes ABG Potassium 3.9 (3.6-5.2) mmol/L A-a O2 Difference 14.0 mm/Hg Chloride 105.0 (98-107) mmol/L Glucose 105 (65-105) mg/dL Lactate 0.7 (0.7-2.1) mmol/L Vent Mode Nc FiO2 32.0 % Sodium (132-148) mmol/l Potassium (3.6-5.0) MMOL/L Carbon Dioxide (22-30) mmol/L Anion Gap (10-20) BUN (7-17) mg/dl Creatinine (0.7-1.2) mg/dl Est GFR ( Amer) Est GFR (Non-Af Amer) POC Glucose (mg/dL) (65-110) mg/dL Random Glucose (65-105) mg/dL Lactic Acid (0.7-2.1) MMOL/L Calcium (8.4-10.2) mg/dL Phosphorus (2.5-4.5) mg/dl Magnesium (1.6-2.3) MG/DL Total Bilirubin (0.2-1.3) mg/dl AST (14-36) U/L ALT (9-52) U/L Alkaline Phosphatase (38-126) U/L Troponin I (0.00-0.120) ng/mL Total Protein (6.3-8.2) G/DL Albumin (3.5-5.0) g/dL Globulin (2.2-3.9) gm/dL Albumin/Globulin Ratio (1.0-2.1) Arterial Blood Potassium 3.9 (3.6-5.2) mmol/L Urine Color (YELLOW) Urine Clarity (Clear) Urine pH (5.0-8.0) Ur Specific [place] (1.003-1.030) Urine Protein (NEGATIVE) mg/dL Urine Glucose (UA) (Normal) mg/dL Urine Ketones (NEGATIVE) mg/dL Urine Blood (NEGATIVE) Urine Nitrate (NEGATIVE) Urine Bilirubin (NEGATIVE) Urine Urobilinogen (0.2-1.0) mg/dL Ur Leukocyte Esterase (Negative) Nidia/uL Urine RBC (Auto) (0-3) /hpf Urine Microscopic WBC (0-5) /hpf Ur Squamous Epith Cells (0-5) /hpf Laboratory Results - last 24 hr 11/04/17 11/04/17 11/04/17 10:25 11:09 11:09 WBC 11.5 H RBC 2.44 L Hgb 7.1 L Hct 21.7 L MCV 88.8 MCH 28.9 MCHC 32.6 L RDW 18.2 H Plt Count 159 MPV 7.7 Neut % (Auto) 85.4 H Lymph % (Auto) 7.0 L [place] % (Auto) 6.7 Eos % (Auto) 0.4 Baso % (Auto) 0.5 Neut # (Auto) 9.8 H Lymph # (Auto) 0.8 L [place] # (Auto) 0.8 Eos # (Auto) 0.1 Baso # (Auto) 0.1 PT INR APTT pCO2 45 pO2 158 H HCO3 24.3 ABG pH 7.35 ABG Total CO2 26.2 ABG O2 Saturation 99.2 H ABG Base Excess -0.8 Mariusz Test Yes ABG Potassium 3.9 A-a O2 Difference 14.0 Chloride 105.0 101 Glucose 105 Lactate 0.7 Vent Mode Nc FiO2 32.0 Sodium 137 Potassium 4.0 Carbon Dioxide 23 Anion Gap 17 BUN 68 H Creatinine 5.9 H Est GFR ( Amer) 9 Est GFR (Non-Af Amer) 7 POC Glucose (mg/dL) Random Glucose 102 Lactic Acid Calcium 8.4 Phosphorus 4.3 Magnesium 2.0 Total Bilirubin 0.4 AST 15 ALT 36 Alkaline Phosphatase 65 Troponin I 0.1200 Total Protein 4.3 L Albumin 1.8 L Globulin 2.5 Albumin/Globulin Ratio 0.7 L Arterial Blood Potassium 3.9 Urine Color Urine Clarity Urine pH Ur Specific [place] Urine Protein Urine Glucose (UA) Urine Ketones Urine Blood Urine Nitrate Urine Bilirubin Urine Urobilinogen Ur Leukocyte Esterase Urine RBC (Auto) Urine Microscopic WBC Ur Squamous Epith Cells 11/04/17 11/04/17 11/04/17 11:09 15:37 17:30 WBC RBC Hgb Hct MCV MCH MCHC RDW Plt Count MPV Neut % (Auto) Lymph % (Auto) [place] % (Auto) Eos % (Auto) Baso % (Auto) Neut # (Auto) Lymph # (Auto) [place] # (Auto) Eos # (Auto) Baso # (Auto) PT 12.8 INR 1.2 APTT 23.7 L pCO2 pO2 HCO3 ABG pH ABG Total CO2 ABG O2 Saturation ABG Base Excess Mariusz Test ABG Potassium A-a O2 Difference Chloride Glucose Lactate Vent Mode FiO2 Sodium Potassium Carbon Dioxide Anion Gap BUN Creatinine Est GFR ( Amer) Est GFR (Non-Af Amer) POC Glucose (mg/dL) 105 Random Glucose Lactic Acid 0.7 Calcium Phosphorus Magnesium Total Bilirubin AST ALT Alkaline Phosphatase Troponin I Total Protein Albumin Globulin Albumin/Globulin Ratio Arterial Blood Potassium Urine Color Urine Clarity Urine pH Ur Specific [place] Urine Protein Urine Glucose (UA) Urine Ketones Urine Blood Urine Nitrate Urine Bilirubin Urine Urobilinogen Ur Leukocyte Esterase Urine RBC (Auto) Urine Microscopic WBC Ur Squamous Epith Cells 11/04/17 11/04/17 11/04/17 17:45 17:59 20:52 WBC 15.8 H RBC 3.35 L Hgb 9.8 L D Hct 30.3 L MCV 90.6 MCH 29.3 MCHC 32.4 L RDW 15.9 H Plt Count 160 MPV 7.7 Neut % (Auto) 88.8 H Lymph % (Auto) 4.5 L [place] % (Auto) 6.0 Eos % (Auto) 0.3 Baso % (Auto) 0.4 Neut # (Auto) 14.1 H Lymph # (Auto) 0.7 L [place] # (Auto) 1.0 H Eos # (Auto) 0.0 Baso # (Auto) 0.1 PT INR APTT pCO2 pO2 HCO3 ABG pH ABG Total CO2 ABG O2 Saturation ABG Base Excess Mariusz Test ABG Potassium A-a O2 Difference Chloride Glucose Lactate Vent Mode FiO2 Sodium Potassium Carbon Dioxide Anion Gap BUN Creatinine Est GFR ( Amer) Est GFR (Non-Af Amer) POC Glucose (mg/dL) 162 H Random Glucose Lactic Acid Calcium Phosphorus Magnesium Total Bilirubin AST ALT Alkaline Phosphatase Troponin I Total Protein Albumin Globulin Albumin/Globulin Ratio Arterial Blood Potassium Urine Color Yellow Urine Clarity Slighty-cloudy Urine pH 7.0 Ur Specific [place] 1.009 Urine Protein 100 Urine Glucose (UA) >=500 Urine Ketones Negative Urine Blood Negative Urine Nitrate Negative Urine Bilirubin Negative Urine Urobilinogen 0.2-1.0 Ur Leukocyte Esterase Neg Urine RBC (Auto) 1 Urine Microscopic WBC 4 Ur Squamous Epith Cells < 1 11/04/17 23:28 WBC 14.1 H RBC 3.42 L Hgb 10.0 L Hct 31.0 L MCV 90.5 MCH 29.2 MCHC 32.2 L RDW 16.6 H Plt Count 156 MPV 7.7 Neut % (Auto) 85.7 H Lymph % (Auto) 4.6 L [place] % (Auto) 8.8 Eos % (Auto) 0.6 Baso % (Auto) 0.3 Neut # (Auto) 12.1 H Lymph # (Auto) 0.6 L [place] # (Auto) 1.2 H Eos # (Auto) 0.1 Baso # (Auto) 0.0 PT INR APTT pCO2 pO2 HCO3 ABG pH ABG Total CO2 ABG O2 Saturation ABG Base Excess Mariusz Test ABG Potassium A-a O2 Difference Chloride Glucose Lactate Vent Mode FiO2 Sodium Potassium Carbon Dioxide Anion Gap BUN Creatinine Est GFR ( Amer) Est GFR (Non-Af Amer) POC Glucose (mg/dL) Random Glucose Lactic Acid Calcium Phosphorus Magnesium Total Bilirubin AST ALT Alkaline Phosphatase Troponin I Total Protein Albumin Globulin Albumin/Globulin Ratio Arterial Blood Potassium Urine Color Urine Clarity Urine pH Ur Specific [place] Urine Protein Urine Glucose (UA) Urine Ketones Urine Blood Urine Nitrate Urine Bilirubin Urine Urobilinogen Ur Leukocyte Esterase Urine RBC (Auto) Urine Microscopic WBC Ur Squamous Epith Cells EKG/Cardiology Studies: Cardiology / EKG Studies 11/04/17 10:25 ELECTROCARDIOGRAM Stat Comment: Mode Of Transportation: Reason For Exam: Sepsis Patient Fingerstick Blood Sugar Results: 162 Review of Systems - Cardiovascular Cardiovascular: absent: As Per HPI, Acrocyanosis, Chest Pain, Chest Pain at Rest , Chest Pain with Activity, Claudication, Diaphoresis, Dyspnea, Dyspnea on Exertion, Edema, Irregular Heart Rhythm, Pain Radiating to Arm/Neck/Jaw, Leg Edema, Leg Ulcers, Lightheadedness, Orthopnea, Palpitations, Paroxysmal Nocturnal Dyspnea, Pedal Edema, Radiating Pain, Rapid Heart Rate, Slow Heart Rate, Syncope, Other, UNREMARKABLE - Respiratory Respiratory: absent: As Per HPI, Cough, Dyspnea, Hemoptysis, Dyspnea on Exertion , Wheezing, Snoring, Stridor, Pain on Inspiration, Chest Congestion, Excessive Mucous Production, Change in Mucous Color, Pain with Coughing, Other, UNREMARKABLE - Gastrointestinal Gastrointestinal: absent: Abdominal Pain, Coffee Ground Emesis, Heartburn, Hematemesis, Melena, Nausea, Vomiting Critical Care Progress Note - Extremities/Vascular Does the Patient have a Central Venous Catheter?: Yes Does the Patient need a Central Venous Catheter?: Yes Does the Patient have a Poe Catheter?: No Does the Patient need a Poe Catheter?: No Assessment/Plan (1) Gastrointestinal hemorrhage Current Visit: Yes Status: Acute Comment: Frequent CBC monitoring Two large bore peripheral catheters PANTOPRAZOLE Suplemental Oxygen NPO GI and Surgery consult appretiated (2) Shock Current Visit: Yes Status: Acute Comment: Hemorrhagic vs septic shock Continue with antibiotic therapy Wean off Vasopressor for MAP 65-75 blood cultures NGTD (3) Ischemic colitis Current Visit: Yes Status: Acute (4) ESRD (end stage renal disease) on dialysis Current Visit: Yes Status: Acute (5) History of cardiac arrest Current Visit: Yes Status: Acute
--- NOTE | 2017-11-05 08:53 | CARD ---
APPROVED REPORT EKG Measurement Heart [id number] <Conclusion> Normal sinus rhythm Nonspecific T wave abnormality Abnormal ECG
[2017-11-05] MEDS ORDERED: Ciprofloxacin 400mg/200ml D5W 400 MG/200 ML BAG IVPB SCH (09:00)
--- NOTE | 2017-11-05 09:23 | CP.PCM.PN ---
<Lux Ventura - Last Filed: 11/05/17 09:27> Subjective - Date & Time of Evaluation Date of Evaluation: 11/05/17 Time of Evaluation: 06:40 - Subjective Subjective: PGY5 GI Fellow Progress Note Patient seen and examined bedside this morning. The patient continues to have ongoing bloody stool with 5 episodes overnight, slowly improving per nursing staff. Some left sided abdominal pain. Patient still on pressor support. No other events overnight. 12 system ROS performed and negative except where stated. Objective - Vital Signs/Intake and Output Vital Signs (last 24 hours): Temp Pulse Resp BP Pulse Ox 98.4 F 92 H 14 92/49 L 100 11/05/17 08:00 11/05/17 09:00 11/05/17 09:00 11/05/17 09:00 11/05/17 09:00 Intake and Output: 11/05/17 11/05/17 06:59 18:59 Intake Total 2576 4 Balance 2576 4 - Medications Medications: Current Medications Metronidazole (Flagyl 500mg/100ml Ns) 100 mls @ 100 mls/hr IVPB Q8 ROBBI PRN Reason: Protocol Last Admin: 11/05/17 08:22 Dose: 100 mls/hr Dextrose/Sodium Chloride (Dextrose 5%/0.9% Ns 1000 Ml) 1,000 mls @ 125 mls/hr IV .Q8H ROBBI Stop: 11/05/17 11:31 Last Admin: 11/05/17 06:11 Dose: 125 mls/hr Ceftriaxone Sodium 1 gm/ (Sodium Chloride) 100 mls @ 100 mls/hr IVPB DAILY ROBBI PRN Reason: Protocol Last Admin: 11/05/17 08:23 Dose: 100 mls/hr Norepinephrine Bitartrate 4 mg (/ Dextrose) 254 mls @ 9.52 mls/hr IV .Q24H ROBBI ; 2.5 MCG/MIN PRN Reason: Protocol Last Titration: 11/05/17 08:28 Dose: 2.5 mcg/min, 9.52 mls/hr Insulin Human Regular (Humulin R) 0 units SC ACCU-CHECK ROBBI PRN Reason: Protocol Last Admin: 11/05/17 01:16 Dose: Not Given Pantoprazole Sodium (Protonix Inj) 40 mg IVP DAILY ROBBI Last Admin: 11/05/17 08:22 Dose: 40 mg - Labs Labs: 11/04/17 23:28 11/04/17 11:09 PT 12.8 Seconds (9.8-13.1) 11/04/17 11:09 INR 1.2 (0.9-1.2) 11/04/17 11:09 APTT 23.7 Seconds (25.6-37.1) L 11/04/17 11:09 - Constitutional Appears: Non-toxic, No Acute Distress - Eye Exam Eye Exam: EOMI, PERRL - ENT Exam ENT Exam: Mucous Membranes Moist - Respiratory Exam Respiratory Exam: Clear to Ausculation Bilateral. absent: Rales, Rhonchi, Wheezes - Cardiovascular Exam Cardiovascular Exam: RRR, +S1, +S2 - GI/Abdominal Exam GI & Abdominal Exam: Soft, Normal Bowel Sounds. absent: Distended, Firm, Guarding, Rigid, Tenderness, Organomegaly - Extremities Exam Extremities Exam: Normal Inspection. absent: Pedal Edema - Neurological Exam Neurological Exam: Alert, Awake, Oriented x3 - Psychiatric Exam Psychiatric exam: Normal Affect, Normal Mood - Skin Skin Exam: Dry, Warm Assessment and Plan - Assessment and Plan (Free Text) Assessment: Tyler is a 67yo female with PMHx significant for ESRD on HD, CVA, DM, HTN, atrial fibrillation, recent episode of ischemic colitis requiring hospitalization at [facility] who presented with recurrent rectal bleeding. -Rectal bleeding - suspect recurrent ischemic colitis -Septic shock -ESRD on HD -CVA -DM -HTN -Atrial fibrillation Plan: -Rectal bleeding ongoing -Transfusion support - s/p 4 units PRBCs -Surgical evaluation ongoing - no plan for surgical resection at this juncture - proceeding with conservative therapy -If patient continues to require ongoing pressor support despite IVF and PRBC resuscitation, may require surgical intervention -No plan for any further endoscopic evaluations -Pain modestly improved -Continue Ceftriaxone/Flagyl coverage <Sathish Gamez - Last Filed: 11/05/17 11:28> Objective - Vital Signs/Intake and Output Vital Signs (last 24 hours): Temp Pulse Resp BP Pulse Ox 98.4 F 85 11 L 102/49 L 100 11/05/17 08:00 11/05/17 11:00 11/05/17 11:00 11/05/17 11:00 11/05/17 11:00 Intake and Output: 11/05/17 11/05/17 06:59 18:59 Intake Total 2576 454 Balance 2576 454 - Medications Medications: Current Medications Metronidazole (Flagyl 500mg/100ml Ns) 100 mls @ 100 mls/hr IVPB Q8 ROBBI PRN Reason: Protocol Last Admin: 11/05/17 08:22 Dose: 100 mls/hr Dextrose/Sodium Chloride (Dextrose 5%/0.9% Ns 1000 Ml) 1,000 mls @ 125 mls/hr IV .Q8H ROBBI Stop: 11/05/17 11:31 Last Admin: 11/05/17 06:11 Dose: 125 mls/hr Ceftriaxone Sodium 1 gm/ (Sodium Chloride) 100 mls @ 100 mls/hr IVPB DAILY ROBBI PRN Reason: Protocol Last Admin: 11/05/17 08:23 Dose: 100 mls/hr Norepinephrine Bitartrate 4 mg (/ Dextrose) 254 mls @ 9.52 mls/hr IV .Q24H ROBBI ; 2.5 MCG/MIN PRN Reason: Protocol Last Titration: 11/05/17 08:28 Dose: 2.5 mcg/min, 9.52 mls/hr Insulin Human Regular (Humulin R) 0 units SC ACCU-CHECK ROBBI PRN Reason: Protocol Last Admin: 11/05/17 01:16 Dose: Not Given Pantoprazole Sodium (Protonix Inj) 40 mg IVP DAILY ROBBI Last Admin: 11/05/17 08:22 Dose: 40 mg - Labs Labs: 11/04/17 23:28 11/04/17 11:09 PT 12.8 Seconds (9.8-13.1) 11/04/17 11:09 INR 1.2 (0.9-1.2) 11/04/17 11:09 APTT 23.7 Seconds (25.6-37.1) L 11/04/17 11:09 Attending/Attestation - Attestation I have personally seen and examined this patient.: Yes I have fully participated in the care of the patient.: Yes I have reviewed all pertinent clinical information, including history, physical exam and plan: Yes Notes (Text): 11/05/17 11:23 I have seen and examined patient with GI fellow. She remains in critical care unit and continues to have bloody bowel movements, 5 episodes overnight as per nursing staff. She also reports ongoing LLQ abdominal pain but denies nausea, vomiting. Review of vitals from today shows persistent hypotension despite vasopressor use. ESRD on HD CVA DM / HTN Atrial fibrillation Septic shock, hypotension Rectal bleeding - ischemic colitis - NPO - Continue with antibiotic therapy - Vasopressor management as per critical care team - Follow up blood cultures - Continue to monitor H/H and transfuse as necessary - Given ongoing rectal bleeding in setting of colonic ischemia, would recommend surgical intervention. Follow up recommendations. - No plan for additional endoscopic evaluation given clinical scenario, will sign off case. Please reconsult as necessary, thank you.
--- NOTE | 2017-11-05 09:39 | CP.PCM.PN ---
Subjective - Date & Time of Evaluation Date of Evaluation: 11/05/17 Time of Evaluation: 06:45 - Subjective Subjective: Gen Surg Progress Note: Dr. Dia Patient seen and examined this morning. Patient currently receiving 4th unit of PRBC. As per nursing patient still having bloody bowel movements but frequency of BMs and amount has been decreasing. Patient is on 5mcg of levophed. Objective - Vital Signs/Intake and Output Vital Signs (last 24 hours): Temp Pulse Resp BP Pulse Ox 98.4 F 92 H 14 92/49 L 100 11/05/17 08:00 11/05/17 09:00 11/05/17 09:00 11/05/17 09:00 11/05/17 09:00 Intake and Output: 11/05/17 11/05/17 06:59 18:59 Intake Total 2576 4 Balance 2576 4 - Medications Medications: Current Medications Metronidazole (Flagyl 500mg/100ml Ns) 100 mls @ 100 mls/hr IVPB Q8 ROBBI PRN Reason: Protocol Last Admin: 11/05/17 08:22 Dose: 100 mls/hr Dextrose/Sodium Chloride (Dextrose 5%/0.9% Ns 1000 Ml) 1,000 mls @ 125 mls/hr IV .Q8H ROBBI Stop: 11/05/17 11:31 Last Admin: 11/05/17 06:11 Dose: 125 mls/hr Ceftriaxone Sodium 1 gm/ (Sodium Chloride) 100 mls @ 100 mls/hr IVPB DAILY ROBBI PRN Reason: Protocol Last Admin: 11/05/17 08:23 Dose: 100 mls/hr Norepinephrine Bitartrate 4 mg (/ Dextrose) 254 mls @ 9.52 mls/hr IV .Q24H ROBBI ; 2.5 MCG/MIN PRN Reason: Protocol Last Titration: 11/05/17 08:28 Dose: 2.5 mcg/min, 9.52 mls/hr Insulin Human Regular (Humulin R) 0 units SC ACCU-CHECK ROBBI PRN Reason: Protocol Last Admin: 11/05/17 01:16 Dose: Not Given Pantoprazole Sodium (Protonix Inj) 40 mg IVP DAILY ROBBI Last Admin: 11/05/17 08:22 Dose: 40 mg - Labs Labs: 11/04/17 23:28 11/04/17 11:09 PT 12.8 Seconds (9.8-13.1) 11/04/17 11:09 INR 1.2 (0.9-1.2) 11/04/17 11:09 APTT 23.7 Seconds (25.6-37.1) L 11/04/17 11:09 Assessment and Plan - Assessment and Plan (Free Text) Assessment: 67F presents with hemorrhagic shock 2/2 GI bleed likely due to ischemic colitis Colonoscopy 10/26/17 - severe ischemic colitis up till at least the descending colon Plan: - NPO -IVF -F/u H/H s/p transfusion - Monitor vitals - maintain SBP above 100 - serial abdominal exams -patient scheduled for dialysis Further recs per Dr. [place] PGY2
--- NOTE | 2017-11-05 09:42 | CP.PCM.PN ---
Subjective - Date & Time of Evaluation Date of Evaluation: 11/05/18 Time of Evaluation: 10:30 - Subjective Subjective: Patient seen and examined bedside. Lying in bed in NAD. Feeling better, still weak and sleepy. With 5 bloody bowel movements last night. s/p 4 unit PRBC transfusion since admission with hgb this AM 12.3 With minimal abdominal tendernesss to lower abdomen. Debnies any chest pain or sob. With in and out episodes of Afib to SR in monitor Objective - Vital Signs/Intake and Output Vital Signs (last 24 hours): Temp Pulse Resp BP Pulse Ox 98.4 F 92 H 14 92/49 L 100 11/05/17 08:00 11/05/17 09:00 11/05/17 09:00 11/05/17 09:00 11/05/17 09:00 Intake and Output: 11/05/17 11/05/17 06:59 18:59 Intake Total 2576 4 Balance 2576 4 - Medications Medications: Current Medications Metronidazole (Flagyl 500mg/100ml Ns) 100 mls @ 100 mls/hr IVPB Q8 ROBBI PRN Reason: Protocol Last Admin: 11/05/17 08:22 Dose: 100 mls/hr Dextrose/Sodium Chloride (Dextrose 5%/0.9% Ns 1000 Ml) 1,000 mls @ 125 mls/hr IV .Q8H ROBBI Stop: 11/05/17 11:31 Last Admin: 11/05/17 06:11 Dose: 125 mls/hr Ceftriaxone Sodium 1 gm/ (Sodium Chloride) 100 mls @ 100 mls/hr IVPB DAILY ROBBI PRN Reason: Protocol Last Admin: 11/05/17 08:23 Dose: 100 mls/hr Norepinephrine Bitartrate 4 mg (/ Dextrose) 254 mls @ 9.52 mls/hr IV .Q24H ROBBI ; 2.5 MCG/MIN PRN Reason: Protocol Last Titration: 11/05/17 08:28 Dose: 2.5 mcg/min, 9.52 mls/hr Insulin Human Regular (Humulin R) 0 units SC ACCU-CHECK ROBBI PRN Reason: Protocol Last Admin: 11/05/17 01:16 Dose: Not Given Pantoprazole Sodium (Protonix Inj) 40 mg IVP DAILY ROBBI Last Admin: 11/05/17 08:22 Dose: 40 mg - Labs Labs: 11/04/17 23:28 11/04/17 11:09 PT 12.8 Seconds (9.8-13.1) 11/04/17 11:09 INR 1.2 (0.9-1.2) 11/04/17 11:09 APTT 23.7 Seconds (25.6-37.1) L 11/04/17 11:09 - Constitutional Appears: Non-toxic, No Acute Distress, Chronically Ill, Other (weak, sleepy ) - Head Exam Head Exam: ATRAUMATIC, NORMOCEPHALIC - Eye Exam Eye Exam: EOMI, PERRL - ENT Exam ENT Exam: Mucous Membranes Dry - Neck Exam Neck Exam: Normal Inspection - Respiratory Exam Respiratory Exam: Clear to Ausculation Bilateral, NORMAL BREATHING PATTERN. absent: Rales, Rhonchi, Wheezes - Cardiovascular Exam Cardiovascular Exam: REGULAR RHYTHM, +S1, +S2. absent: JVD - GI/Abdominal Exam GI & Abdominal Exam: Soft, Tenderness (minimal tenderness on palpaition to lower abdomen ), Normal Bowel Sounds. absent: Distended, Guarding, Rebound - Rectal Exam Rectal Exam: Deferred - Extremities Exam Extremities Exam: Full ROM, Normal Inspection. absent: Calf Tenderness, Pedal Edema Additional comments: right hand volar aspect open wound 3x3 cm since admission right upper chest HD catheter LUE AVF - Neurological Exam Neurological Exam: Alert, Awake, CN II-XII Intact - Psychiatric Exam Psychiatric exam: Normal Affect - Skin Skin Exam: Dry, Warm Assessment and Plan - Assessment and Plan (Free Text) Assessment: 67 yo female with multiple medical problems with history of new CVA with right MCA distribution that was initially admitted to [facility] acute rehab for PT/OT transferred and admitted to [facility] ICU for rectal bleed with hypovolemia and suspected sepsis. Her past medical history includes ESRD on dialysis, Type 2 DM, HTN, obesity, history of old CVA in 2011, atrial fibrillation, GI bleed with hemorrhagic shock just last week at [facility]. During that time the patient had an episode of cardiac arrest and respiratory failure and required intubation and hemodynamic monitoring in the ICU due to hypotensive shock from extravasation. She developed ischemic colitis that was diagnosed with colonoscopy that showed colonic diverticulosis, internal hemorrhoids and diffuse severe inflammation with ulcerations in the entire colon, severe ischemic colitis mucosal ulcerations up to 40cm dinorah. On 11/04 she started to have worsening of rectal bleed , with blood clots and hypotension , fever Tmax 102 and minimal lower abdominal tenderness. Full septic panel was ordered , Cipro and Flagyl given , IVF ( bolus started ). Patient was then sent to [facility] ED for ICU admission for sepsis and GI bleed. At present s/p 4 unit PRBC transfusion with HGb 12 today , on Levophed drip GI and surgery consulted 1. Hypovolemic shock unclear etiology : most likely secondary to GI bleed and possible sepsis septic work up ordered received 4 L fluid and 4 unit PRBC transfusion Continue Rocephin and Flagyl on levophed drip 2.Recurrent lower GI bleed due to ischemic colitis continue ICU monitoring , IVF and transfusion PRBC H& h monitoring GI and surgery cosnult appreciated . No intervention at this time recommended NPO Continue rocephin and Flagyl IV 3. Acute on chronic anemia GI blood loss on top of kidney disease anemia Hgb 12 today after 4 unit PRBC transfusion ( Hgb dropped from 9.7 yesterday to 7 ) 4. History of recent cardiac arrest/respiratory arrest continue Levophed and IVF 5. ESRD on Dialysis MWF Nephro consulted continue HD as scheduled 6. History of R CVA 10/24/17 chronic ASA on hold due to GI bleed Statin on hold since patient is NPO Levophed for BP control 7. Chronic Afib patient is in and out SR and afib on monitor rate controlled continue to monitor closely 8. DM Type II accuchecks and insulin coverage NPO for now 9. DVT prophylaxis SCDs
--- NOTE | 2017-11-05 09:50 | CP.PCM.CON ---
History of Present Illness - History of Present Illness History of Present Illness: This patient is 67 years of age female was admitted from [facility] because of CVA for rehabilitation because of weakness also generalized debility. Patient on with end stage renal disease on maintenance hemodialysis Sunday. And she is due to have dialysis today. Patient underwent multiple complicated hospitalizations related to severe bleeding from the left AV shunt patient. Patient was in intensive care unit on ventilator and she lost a lot of blood apparently and developed by a brief cardiac advised. patient transferred from acute rehabilitation to intensive care unit because of the active GI bleeding and required to be given blood transfusion. Past medical history: End-stage renal disease on dialysis 3 days a week MWF, Diverticulosis, CVA, hypertension, asthma, GI bleed, Type 2 DM Past surgical history: AV fistula, colonoscopy 08/13/2014 Allergies: No known drug allergies. Family history: Noncontributory this time Social history: No history of tobacco use, EtOH or illicit drugs Medications: Reviewed Review of Systems - Constitutional Constitutional: Anorexia. absent: Chills - EENT Nose/Mouth/Throat: absent: Nasal Congestion - Cardiovascular Cardiovascular: absent: Acrocyanosis, Leg Edema, Leg Ulcers - Respiratory Respiratory: absent: Cough, Hemoptysis - Gastrointestinal Gastrointestinal: Cramping, Hematemesis. absent: Coffee Ground Emesis - Genitourinary Genitourinary: Nocturia - Musculoskeletal Musculoskeletal: Muscle Weakness - Neurological Neurological: Abnormal Gait - Endocrine Endocrine: Fatigue - Hematologic/Lymphatic Hematologic: absent: Easy Bleeding Past Patient History - Infectious Disease Hx of Infectious Diseases: None - Tetanus Immunizations Tetanus Immunization: Up to Date - Past Medical History & Family History Past Medical History?: Yes - Past Social History Smoking Status: Never Smoked - CARDIAC Hx Cardia Arrhythmia: No Hx Congestive Heart Failure: No Hx Hypercholesterolemia: Yes Hx Hypertension: Yes Hx Mitral Valve Prolapse: No Hx Pacemaker: No Hx Peripheral Edema: No - PULMONARY Hx Asthma: Yes Hx Bronchitis: No Hx Chronic Obstructive Pulmonary Disease (COPD): No Hx Emphysema: No Hx Pneumonia: No Hx Sleep Apnea: No - NEUROLOGICAL Hx Alzheimer's Disease: No Hx Dementia: No Hx Migraine: No Hx Parkinson's Disease: No Hx Seizures: No Hx Transient Ischemic Attacks (TIA): Yes - HEENT Hx HEENT Problems: No - RENAL Hx Chronic Kidney Disease: Yes Hx Kidney Stones: No - ENDOCRINE/METABOLIC Hx Hyperthyroidism: No Hx Hypothyroidism: Yes - HEMATOLOGICAL/ONCOLOGICAL Hx AIDS: No Hx Anemia: Yes (secondary to rectal bleeding-resolved.) Hx Human Immunodeficiency Virus (HIV): No Hx Sickle Cell Disease: No - INTEGUMENTARY Hx Dermatological Problems: No - MUSCULOSKELETAL/RHEUMATOLOGICAL Hx Arthritis: No Hx Falls: No Hx Fractures: No Hx Osteoporosis: No - GASTROINTESTINAL Hx Crohn's Disease: No Hx Diverticulitis: Yes Hx Gall Bladder Disease: No Hx Pancreatitis: No - GENITOURINARY/GYNECOLOGICAL Hx Sexually Transmitted Disorders: No - PSYCHIATRIC Hx Anxiety: No Hx Bipolar Disorder: No Hx Depression: No Hx Paranoia: No Hx Post Traumatic Stress Disorder: No Hx Schizophrenia: No Hx Substance Use: No - SURGICAL HISTORY Hx Appendectomy: No Hx Cholecystectomy: No Hx Coronary Stent: No - ANESTHESIA Hx Anesthesia Reactions: No Hx Malignant Hyperthermia: No Meds Allergies/Adverse Reactions: Allergies Allergy/AdvReac Type Severity Reaction Status Date / Time Latex, Natural Rubber Allergy Unknown RASH Verified 10/26/17 14:13 - Medications Medications: Current Medications Metronidazole (Flagyl 500mg/100ml Ns) 100 mls @ 100 mls/hr IVPB Q8 ROBBI PRN Reason: Protocol Last Admin: 11/05/17 08:22 Dose: 100 mls/hr Dextrose/Sodium Chloride (Dextrose 5%/0.9% Ns 1000 Ml) 1,000 mls @ 125 mls/hr IV .Q8H ROBBI Stop: 11/05/17 11:31 Last Admin: 11/05/17 06:11 Dose: 125 mls/hr Ceftriaxone Sodium 1 gm/ (Sodium Chloride) 100 mls @ 100 mls/hr IVPB DAILY ROBBI PRN Reason: Protocol Last Admin: 11/05/17 08:23 Dose: 100 mls/hr Norepinephrine Bitartrate 4 mg (/ Dextrose) 254 mls @ 9.52 mls/hr IV .Q24H ROBBI ; 2.5 MCG/MIN PRN Reason: Protocol Last Titration: 11/05/17 08:28 Dose: 2.5 mcg/min, 9.52 mls/hr Insulin Human Regular (Humulin R) 0 units SC ACCU-CHECK ROBBI PRN Reason: Protocol Last Admin: 11/05/17 01:16 Dose: Not Given Pantoprazole Sodium (Protonix Inj) 40 mg IVP DAILY ROBBI Last Admin: 11/05/17 08:22 Dose: 40 mg Physical Exam - Constitutional Appears: No Acute Distress - ENT Exam ENT Exam: Mucous Membranes Moist - Neck Exam Neck exam: Negative for: Lymphadenopathy - Respiratory Exam Respiratory Exam: NORMAL BREATHING PATTERN. absent: Chest Wall Tenderness - Cardiovascular Exam Cardiovascular Exam: absent: Gallop, JVD, Rubs - Extremities Exam Extremities exam: Negative for: calf tenderness - Back Exam Back exam: absent: CVA tenderness (L), CVA tenderness (R) - Neurological Exam Neurological exam: Alert - Psychiatric Exam Psychiatric exam: Normal Affect Results - Vital Signs Recent Vital Signs: Last Vital Signs Temp 98.4 F 11/05/17 08:00 Pulse 92 H 11/05/17 09:00 Resp 14 11/05/17 09:00 BP 92/49 L 11/05/17 09:00 Pulse Ox 100 11/05/17 09:00 - Labs Result Diagrams: 11/04/17 23:28 11/04/17 11:09 Labs: Laboratory Results - last 24 hr 11/04/17 11/04/17 11/04/17 10:25 11:09 11:09 WBC 11.5 H RBC 2.44 L Hgb 7.1 L Hct 21.7 L MCV 88.8 MCH 28.9 MCHC 32.6 L RDW 18.2 H Plt Count 159 MPV 7.7 Neut % (Auto) 85.4 H Lymph % (Auto) 7.0 L [place] % (Auto) 6.7 Eos % (Auto) 0.4 Baso % (Auto) 0.5 Neut # (Auto) 9.8 H Lymph # (Auto) 0.8 L [place] # (Auto) 0.8 Eos # (Auto) 0.1 Baso # (Auto) 0.1 PT INR APTT pCO2 45 pO2 158 H HCO3 24.3 ABG pH 7.35 ABG Total CO2 26.2 ABG O2 Saturation 99.2 H ABG Base Excess -0.8 Mariusz Test Yes ABG Potassium 3.9 A-a O2 Difference 14.0 Chloride 105.0 101 Glucose 105 Lactate 0.7 Vent Mode Nc FiO2 32.0 Sodium 137 Potassium 4.0 Carbon Dioxide 23 Anion Gap 17 BUN 68 H Creatinine 5.9 H Est GFR ( Amer) 9 Est GFR (Non-Af Amer) 7 POC Glucose (mg/dL) Random Glucose 102 Lactic Acid Calcium 8.4 Phosphorus 4.3 Magnesium 2.0 Total Bilirubin 0.4 AST 15 ALT 36 Alkaline Phosphatase 65 Troponin I 0.1200 Total Protein 4.3 L Albumin 1.8 L Globulin 2.5 Albumin/Globulin Ratio 0.7 L Arterial Blood Potassium 3.9 Urine Color Urine Clarity Urine pH Ur Specific [place] Urine Protein Urine Glucose (UA) Urine Ketones Urine Blood Urine Nitrate Urine Bilirubin Urine Urobilinogen Ur Leukocyte Esterase Urine RBC (Auto) Urine Microscopic WBC Ur Squamous Epith Cells 11/04/17 11/04/17 11/04/17 11:09 15:37 17:30 WBC RBC Hgb Hct MCV MCH MCHC RDW Plt Count MPV Neut % (Auto) Lymph % (Auto) [place] % (Auto) Eos % (Auto) Baso % (Auto) Neut # (Auto) Lymph # (Auto) [place] # (Auto) Eos # (Auto) Baso # (Auto) PT 12.8 INR 1.2 APTT 23.7 L pCO2 pO2 HCO3 ABG pH ABG Total CO2 ABG O2 Saturation ABG Base Excess Mariusz Test ABG Potassium A-a O2 Difference Chloride Glucose Lactate Vent Mode FiO2 Sodium Potassium Carbon Dioxide Anion Gap BUN Creatinine Est GFR ( Amer) Est GFR (Non-Af Amer) POC Glucose (mg/dL) 105 Random Glucose Lactic Acid 0.7 Calcium Phosphorus Magnesium Total Bilirubin AST ALT Alkaline Phosphatase Troponin I Total Protein Albumin Globulin Albumin/Globulin Ratio Arterial Blood Potassium Urine Color Urine Clarity Urine pH Ur Specific [place] Urine Protein Urine Glucose (UA) Urine Ketones Urine Blood Urine Nitrate Urine Bilirubin Urine Urobilinogen Ur Leukocyte Esterase Urine RBC (Auto) Urine Microscopic WBC Ur Squamous Epith Cells 11/04/17 11/04/17 11/04/17 17:45 17:59 20:52 WBC 15.8 H RBC 3.35 L Hgb 9.8 L D Hct 30.3 L MCV 90.6 MCH 29.3 MCHC 32.4 L RDW 15.9 H Plt Count 160 MPV 7.7 Neut % (Auto) 88.8 H Lymph % (Auto) 4.5 L [place] % (Auto) 6.0 Eos % (Auto) 0.3 Baso % (Auto) 0.4 Neut # (Auto) 14.1 H Lymph # (Auto) 0.7 L [place] # (Auto) 1.0 H Eos # (Auto) 0.0 Baso # (Auto) 0.1 PT INR APTT pCO2 pO2 HCO3 ABG pH ABG Total CO2 ABG O2 Saturation ABG Base Excess Mariusz Test ABG Potassium A-a O2 Difference Chloride Glucose Lactate Vent Mode FiO2 Sodium Potassium Carbon Dioxide Anion Gap BUN Creatinine Est GFR ( Amer) Est GFR (Non-Af Amer) POC Glucose (mg/dL) 162 H Random Glucose Lactic Acid Calcium Phosphorus Magnesium Total Bilirubin AST ALT Alkaline Phosphatase Troponin I Total Protein Albumin Globulin Albumin/Globulin Ratio Arterial Blood Potassium Urine Color Yellow Urine Clarity Slighty-cloudy Urine pH 7.0 Ur Specific [place] 1.009 Urine Protein 100 Urine Glucose (UA) >=500 Urine Ketones Negative Urine Blood Negative Urine Nitrate Negative Urine Bilirubin Negative Urine Urobilinogen 0.2-1.0 Ur Leukocyte Esterase Neg Urine RBC (Auto) 1 Urine Microscopic WBC 4 Ur Squamous Epith Cells < 1 11/04/17 23:28 WBC 14.1 H RBC 3.42 L Hgb 10.0 L Hct 31.0 L MCV 90.5 MCH 29.2 MCHC 32.2 L RDW 16.6 H Plt Count 156 MPV 7.7 Neut % (Auto) 85.7 H Lymph % (Auto) 4.6 L [place] % (Auto) 8.8 Eos % (Auto) 0.6 Baso % (Auto) 0.3 Neut # (Auto) 12.1 H Lymph # (Auto) 0.6 L [place] # (Auto) 1.2 H Eos # (Auto) 0.1 Baso # (Auto) 0.0 PT INR APTT pCO2 pO2 HCO3 ABG pH ABG Total CO2 ABG O2 Saturation ABG Base Excess Mraiusz Test ABG Potassium A-a O2 Difference Chloride Glucose Lactate Vent Mode FiO2 Sodium Potassium Carbon Dioxide Anion Gap BUN Creatinine Est GFR ( Amer) Est GFR (Non-Af Amer) POC Glucose (mg/dL) Random Glucose Lactic Acid Calcium Phosphorus Magnesium Total Bilirubin AST ALT Alkaline Phosphatase Troponin I Total Protein Albumin Globulin Albumin/Globulin Ratio Arterial Blood Potassium Urine Color Urine Clarity Urine pH Ur Specific [place] Urine Protein Urine Glucose (UA) Urine Ketones Urine Blood Urine Nitrate Urine Bilirubin Urine Urobilinogen Ur Leukocyte Esterase Urine RBC (Auto) Urine Microscopic WBC Ur Squamous Epith Cells Assessment & Plan - Assessment and Plan (Free Text) Assessment: Patient with end stage renal disease on maintenance hemodialysis. Sunday. transfer to intensive care unit because of the active GI bleeding Anemia EPO on dialysis. active rectal bleeding ,patient was transfused 4 units of packed cells. Hypotensive patient on vasopressors. Other diagnosis patient admitted with acute CVA for rehabilitation. Status post cardiac arrest Status post massive bleeding from AV fistula. History of hyperphosphatemia History of secondary hyperparathyroidism Diabetes Mellitus hypertension stat BMP now Hemodialysis is scheduled for later today
[2017-11-05 12:13] LABS: HEMOGLOBIN 12.3 g/dL (12.0-16.0); MEAN CELL VOLUME 89.5 fl (81.0-99.0); MEAN CORPUSCULAR HGB CONC 33.5 g/dL (33.0-37.0); RBC 4.1 Mil/uL (3.80-5.20); RED CELL DISTRIBUTION WIDTH 16.4 % (11.5-14.5); WHITE BLOOD COUNT 9.7 K/uL (4.8-10.8)
[2017-11-05 12:49] LABS: ALBUMIN 2.2 g/dL (3.5-5.0)
[2017-11-05 13:20] LABS: ALB/GLOB RATIO 0.7 (1.0-2.1); CALCIUM 9.2 mg/dL (8.4-10.2)
[2017-11-05] MEDS: Silver Sulfadiazine 1% CREAM (50 gm) TOP SCH (16:16)
[2017-11-05] MEDS: Epoetin Alfa 20000 UNIT/ML Inj IV SCH (22:46)
[2017-11-06] MEDS: metroNIDAZOLE 500mg/100ml NS 100 ML IVPB SCH ×3 (00:04→16:01)
[2017-11-06 05:33] LABS: HEMOGLOBIN 11.7 g/dL (12.0-16.0); MEAN CELL VOLUME 90.2 fl (81.0-99.0); MEAN CORPUSCULAR HEMOGLOBIN 29.5 pg (27.0-31.0); MEAN CORPUSCULAR HGB CONC 32.7 g/dL (33.0-37.0); RBC 3.98 Mil/uL (3.80-5.20); RED CELL DISTRIBUTION WIDTH 16.5 % (11.5-14.5); WHITE BLOOD COUNT 8.1 K/uL (4.8-10.8)
[2017-11-06] MEDS: Insulin Regular 100 units/ml SC SCH ×4 (06:10→23:00)
[2017-11-06] MEDS: Silver Sulfadiazine 1% CREAM (50 gm) TOP SCH ×2 (08:22→16:02)
[2017-11-06] MEDS: Dextrose 5%/0.9% NS 1,000 ML IV SCH (09:30)
--- NOTE | 2017-11-06 09:58 | CP.PCM.PN ---
Subjective - Date & Time of Evaluation Date of Evaluation: 11/06/17 Time of Evaluation: 09:45 - Subjective Subjective: No fever denies CP no SOB had 2 episodes of maroon BM last night and had small amount 2x this morning slight abdominal discomfort Objective - Vital Signs/Intake and Output Vital Signs (last 24 hours): Temp Pulse Resp BP Pulse Ox 99.4 F 81 13 125/55 L 99 11/06/17 08:00 11/06/17 08:00 11/06/17 08:00 11/06/17 08:00 11/06/17 08:00 Intake and Output: 11/06/17 11/06/17 06:59 18:59 Intake Total 1425 125 Output Total 700 Balance 725 125 - Medications Medications: Current Medications Epoetin Gonzalo (Procrit) 5,000 unit IV MWF [facility] Last Admin: 11/05/17 22:46 Dose: 5,000 unit Metronidazole (Flagyl 500mg/100ml Ns) 100 mls @ 100 mls/hr IVPB Q8 [facility] PRN Reason: Protocol Last Admin: 11/06/17 08:21 Dose: 100 mls/hr Ceftriaxone Sodium 1 gm/ (Sodium Chloride) 100 mls @ 100 mls/hr IVPB DAILY [facility] PRN Reason: Protocol Last Admin: 11/06/17 08:22 Dose: 100 mls/hr Dextrose/Sodium Chloride (Dextrose 5%/0.9% Ns 1000 Ml) 1,000 mls @ 80 mls/hr IV .[id number] [facility] Stop: 11/07/17 08:58 Last Admin: 11/06/17 09:30 Dose: 80 mls/hr Insulin Human Regular (Humulin R) 0 units SC ACCU-CHECK [facility] PRN Reason: Protocol Last Admin: 11/06/17 06:10 Dose: Not Given Pantoprazole Sodium (Protonix Inj) 40 mg IVP DAILY [facility] Last Admin: 11/06/17 08:21 Dose: 40 mg Silver Sulfadiazine (Silvadene 1% 50 Gm) 0 applic TOP BID [facility] Last Admin: 11/06/17 08:22 Dose: 1 applic - Labs Labs: 11/06/17 04:20 11/06/17 04:20 PT 12.8 Seconds (9.8-13.1) 11/04/17 11:09 INR 1.2 (0.9-1.2) 11/04/17 11:09 APTT 23.7 Seconds (25.6-37.1) L 11/04/17 11:09 - Constitutional Appears: No Acute Distress, Chronically Ill - Head Exam Head Exam: ATRAUMATIC, NORMAL INSPECTION, NORMOCEPHALIC - Eye Exam Eye Exam: EOMI, Normal appearance Pupil Exam: NORMAL ACCOMODATION - ENT Exam ENT Exam: Mucous Membranes Dry, Normal External Ear Exam - Neck Exam Neck Exam: Full ROM. absent: Meningismus - Respiratory Exam Respiratory Exam: NORMAL BREATHING PATTERN. absent: Respiratory Distress - Cardiovascular Exam Cardiovascular Exam: Irregular Rhythm, +S1, +S2 - GI/Abdominal Exam GI & Abdominal Exam: Distended, Soft, Tenderness, Normal Bowel Sounds - Extremities Exam Extremities Exam: absent: Calf Tenderness Additional comments: left arm old AV fistula - Back Exam Back Exam: absent: CVA tenderness (L), CVA tenderness (R) - Neurological Exam Neurological Exam: Alert, Awake, CN II-XII Intact, Oriented x3 Neuro motor strength exam: Left Upper Extremity: 5, Right Upper Extremity: 5, Left Lower Extremity: 5, Right Lower Extremity: 5 - Psychiatric Exam Psychiatric exam: Normal Affect, Normal Mood - Skin Skin Exam: Dry, Normal Color, Warm Assessment and Plan - Assessment and Plan (Free Text) Assessment: 67 yo female with multiple medical problems with history of recent CVA right MCA distribution . She was initially admitted to [facility] and transferred to [facility] acute rehab for PT/OT. She was transferred to [facility] ICU due to rectal bleed with hypovolemia and suspected sepsis. Her past medical history includes ESRD on dialysis, Type 2 DM, HTN, obesity, history of old CVA in 2011, atrial fibrillation, GI bleed with hemorrhagic shock just last week at [facility]. During that time the patient had an episode of cardiac arrest and respiratory failure and required intubation and hemodynamic monitoring in the ICU due to hypotensive shock from extravasation. She developed ischemic colitis that was diagnosed with colonoscopy that showed colonic diverticulosis, internal hemorrhoids and diffuse severe inflammation with ulcerations in the entire colon, severe ischemic colitis mucosal ulcerations up to 40cm dinorah. On 11/04 she started to have worsening of rectal bleed , with blood clots and hypotension , fever Tmax 102 and minimal lower abdominal tenderness. Full septic panel was ordered , Cipro and Flagyl given , IVF ( bolus started ). Patient was then sent to [facility] ED then to ICU for admission due to sepsis and GI bleed. At present s/p 4 unit PRBC transfusion with HGb 11.7 today , off Levophed drip since yesterday afternoon 11/05. GI and surgery consulted . Pt continues to have blood BM. 1. Hypovolemic shock most likely secondary to GI bleed and possible sepsis septic work up ordered - Lactic acid normal 4 unit PRBC transfusion Continue Rocephin and Flagyl Now off Levophed ID consult 2.Recurrent lower GI bleed due to ischemic colitis continue ICU monitoring , IVF and transfusion PRBC H& h monitoring GI and surgery consulted - No intervention at this time recommended NPO Continue rocephin and Flagyl IV 3. Acute on chronic anemia GI blood loss on top of kidney disease anemia 4 unit PRBC transfusion 4. History of recent cardiac arrest/respiratory arrest 5. ESRD on Dialysis MWF Nephro consulted continue HD as scheduled 6. 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 Paroxysmal Afib patient is in and out SR and afib on monitor, rate controlled continue to monitor closely 8. DM Type II accuchecks and insulin coverage Pt off meds as sh is NPO 9. DVT prophylaxis SCDs
--- NOTE | 2017-11-06 10:27 | CP.PCM.PN ---
Subjective - Date & Time of Evaluation Date of Evaluation: 11/06/17 Time of Evaluation: 10:26 - Subjective Subjective: Patient is awake and patient unconscious Patient is still having lower GI bleeding appears to be active. No vomiting reported Hemodialysis completed yesterday Vital signs stable at this time Objective - Vital Signs/Intake and Output Vital Signs (last 24 hours): Temp Pulse Resp BP Pulse Ox 99.4 F 91 H 19 144/69 99 11/06/17 08:00 11/06/17 10:00 11/06/17 10:00 11/06/17 10:00 11/06/17 10:00 Intake and Output: 11/06/17 11/06/17 06:59 18:59 Intake Total 1425 575 Output Total 700 Balance 725 575 - Medications Medications: Current Medications Epoetin Gonzalo (Procrit) 5,000 unit IV MWF [facility] Last Admin: 11/05/17 22:46 Dose: 5,000 unit Metronidazole (Flagyl 500mg/100ml Ns) 100 mls @ 100 mls/hr IVPB Q8 [facility] PRN Reason: Protocol Last Admin: 11/06/17 08:21 Dose: 100 mls/hr Ceftriaxone Sodium 1 gm/ (Sodium Chloride) 100 mls @ 100 mls/hr IVPB DAILY [facility] PRN Reason: Protocol Last Admin: 11/06/17 08:22 Dose: 100 mls/hr Dextrose/Sodium Chloride (Dextrose 5%/0.9% Ns 1000 Ml) 1,000 mls @ 80 mls/hr IV .[id number] [facility] Stop: 11/07/17 08:58 Last Admin: 11/06/17 09:30 Dose: 80 mls/hr Insulin Human Regular (Humulin R) 0 units SC ACCU-CHECK [facility] PRN Reason: Protocol Last Admin: 11/06/17 06:10 Dose: Not Given Pantoprazole Sodium (Protonix Inj) 40 mg IVP DAILY [facility] Last Admin: 11/06/17 08:21 Dose: 40 mg Silver Sulfadiazine (Silvadene 1% 50 Gm) 0 applic TOP BID [facility] Last Admin: 11/06/17 08:22 Dose: 1 applic - Labs Labs: 11/06/17 04:20 11/06/17 04:20 PT 12.8 Seconds (9.8-13.1) 11/04/17 11:09 INR 1.2 (0.9-1.2) 11/04/17 11:09 APTT 23.7 Seconds (25.6-37.1) L 11/04/17 11:09 - Constitutional Appears: No Acute Distress - ENT Exam ENT Exam: Mucous Membranes Moist - Neck Exam Neck Exam: absent: Lymphadenopathy - Respiratory Exam Respiratory Exam: Rhonchi, NORMAL BREATHING PATTERN. absent: Chest Wall Tenderness - Cardiovascular Exam Cardiovascular Exam: Irregular Rhythm. absent: Gallop, JVD, Rubs - GI/Abdominal Exam GI & Abdominal Exam: Soft, Normal Bowel Sounds - Extremities Exam Extremities Exam: absent: Calf Tenderness - Back Exam Back Exam: absent: CVA tenderness (L), CVA tenderness (R) - Neurological Exam Neurological Exam: Alert - Psychiatric Exam Psychiatric exam: Normal Affect - Skin Skin Exam: absent: Cyanosis Assessment and Plan (1) Colitis Status: Acute (2) ESRD (end stage renal disease) on dialysis Assessment & Plan: 67 yo female with multiple medical problems with history of new CVA with right MCA distribution that was initially admitted to [facility] acute rehab for PT/OT transferred and admitted to [facility] ICU for rectal bleed with hypovolemia and suspected sepsis. Her past medical history includes ESRD on dialysis, Type 2 DM, HTN, obesity, history of old CVA in 2011, atrial fibrillation, GI bleed with hemorrhagic shock just last week at [facility]. During that time the patient had an episode of cardiac arrest and respiratory failure in summery Patient with end stage renal disease on maintenance hemodialysis. Sunday. transfer to intensive care unit because of the active GI bleeding Anemia EPO on dialysis. active rectal bleeding ,patient was transfused ,multiple transfusion secondary to ischemic colitis which she has been diagnosed from previous hospitalization Other diagnosis patient admitted with acute CVA for rehabilitation. Status post cardiac arrest Status post massive bleeding from AV fistula. History of hyperphosphatemia History of secondary hyperparathyroidism Diabetes Mellitus hypertension history Status: Acute (3) Gastrointestinal hemorrhage Status: Acute (4) History of cardiac arrest Status: Acute (5) Ischemic colitis Status: Acute (6) Shock Status: Acute
[2017-11-06 18:17] LABS: HEMOGLOBIN 11.2 g/dL (12.0-16.0); MEAN CELL VOLUME 90.3 fl (81.0-99.0); MEAN CORPUSCULAR HEMOGLOBIN 29.5 pg (27.0-31.0); MEAN CORPUSCULAR HGB CONC 32.7 g/dL (33.0-37.0); RBC 3.81 Mil/uL (3.80-5.20); RED CELL DISTRIBUTION WIDTH 16.2 % (11.5-14.5); WHITE BLOOD COUNT 7.8 K/uL (4.8-10.8)
[2017-11-06] MEDS ORDERED: DiphenhydrAMINE 50 mg/ml Inj IVP STA (22:38)
[2017-11-07] MEDS: Dextrose 5%/0.9% NS 1,000 ML IV SCH (01:57)
[2017-11-07] MEDS: metroNIDAZOLE 500mg/100ml NS 100 ML IVPB SCH ×3 (01:57→16:19)
[2017-11-07 05:36] LABS: BASO % 0.3 % (0.0-2.0); EOS # 0.1 K/uL (0.0-0.7); HEMOGLOBIN 11.6 g/dL (12.0-16.0); LYMPH # 0.4 K/uL (1.0-4.3); LYMPH % 7.1 % (20.0-40.0); MEAN CELL VOLUME 89.8 fl (81.0-99.0); MEAN CORPUSCULAR HEMOGLOBIN 29.6 pg (27.0-31.0); MEAN PLATELET VOLUME 7.4 fl (7.2-11.7); MONO # 0.6 K/uL (0.0-0.8); MONO % 10.1 % (0.0-10.0); NEUT # 4.8 K/uL (1.8-7.0); NEUT % 81.5 % (50.0-75.0); NRBC % 0.1 % (0.0-0.0); RBC 3.92 Mil/uL (3.80-5.20); RED CELL DISTRIBUTION WIDTH 16.2 % (11.5-14.5); WHITE BLOOD COUNT 5.9 K/uL (4.8-10.8)
[2017-11-07 06:05] LABS: ALB/GLOB RATIO 0.7 (1.0-2.1); CALCIUM 9.3 mg/dL (8.4-10.2)
--- NOTE | 2017-11-07 07:56 | PN ---
CRITICAL CARE PROGRESS NOTE DATE: 11/06/2017 LOCATION: ICU, bed 435. SUBJECTIVE: The patient is seen and evaluated at the bedside. Case was discussed in detail in ICU multidisciplinary rounds. Past medical, surgical and social history noted. A 67-year-old female with multiple medical problems admitted with right MCA infarct was initially admitted to [facility] acute rehab for OT and PT transfer and admitted to [facility] ICU for rectal bleed with hypovolemia and suspected sepsis. The patient's past medical history significant for end-stage renal disease on dialysis, type 2 diabetes, hypertension, obesity, severe atrial fibrillation, GI bleed with hemorrhagic shock status post transfusion, status post colonoscopy suspected ischemic colitis. PHYSICAL EXAMINATION: GENERAL: Currently remains awake, alert and follows commands appropriate. VITAL SIGNS: Temperature 99.4, heart rate of 91, regular, blood pressure 144/69, mean arterial pressure 99, respiratory rate of 19 and saturation 99% on oxygen supplement 2 liters nasal cannula. Intake 2979 and output 700. Positive balance 2279. HEAD, EYES, EARS, NOSE AND THROAT: Pupils are reactive. Conjunctivae pale. Sclerae white. Oral mucosa dry. CHEST: Bilateral breath sounds clear to auscultation. HEART: Rhythm regular. S1 and S2 normal. No audible murmur. ABDOMEN: Bowel sounds present. Mild tenderness on palpation in lower quadrants. EXTREMITIES: Full range of motion. Normal inspection. No palpable cord. The right upper chest hemodialysis catheter in place. Left upper extremity AVF. LABORATORY DATA: WBC 8.1, hemoglobin 11.7, hematocrit 35.9 and platelet count 115. PT 12.8, INR 1.2 and PTT 23.7. SMA-7; sodium 136, potassium 3.3, chloride 101, CO2 of 29, blood urea nitrogen 26, creatinine of 3.6 and glucose 127. Urinalysis is negative. Microbiology; nasal smear MRSA negative. Urine culture no growth. Blood culture no growth reported. CURRENT MEDICATIONS: 1. Ceftriaxone 1 g IV daily. 2. D5 normal at 80 ml per hour. 3. Procrit 5000 units three times a week with the dialysis. 4. Flagyl 500 mg IV every 8. 5. Protonix 40 IV daily. 6. Silver sulfadiazine cream 1% topically twice daily. IMPRESSION: 1. Status post hypovolemic shock likely secondary to gastrointestinal bleed, possible sepsis. Status post 4 liters , 4 units of packed red blood cells, suspected ischemic colitis on Rocephin and Flagyl. Continue Levophed drip. 2. Recurrent lower gastrointestinal bleed due to ischemic colitis, seen by Gastroenterology and General Surgery consult. Conservative management with antibiotic. Continue IV hydration and pressor support. 3. Acute on chronic anemia and gastrointestinal blood loss on top of chronic kidney disease. Hemoglobin remains stable. 4. History of recent cardiac arrest with slowing of the mental status. 5. History of end-stage renal disease on hemodialysis three times a week. 6. History of right-sided cerebrovascular accident on aspirin and Plavix on hold secondary to gastrointestinal bleed. 7. History of chronic atrial fibrillation rate remains controlled. 8. Diabetes mellitus type 2. Continue Accu-Chek with regular insulin coverage. 9. Deep venous thrombosis prophylaxis with sequential compression device. Shiv Ontiveros MD
[2017-11-07] MEDS: Silver Sulfadiazine 1% CREAM (50 gm) TOP SCH ×2 (08:10→16:19)
--- NOTE | 2017-11-07 11:29 | CP.PCM.PN ---
Subjective - Date & Time of Evaluation Date of Evaluation: 11/07/17 Time of Evaluation: 10:30 - Subjective Subjective: Patient seen and examined. No acute events over night. As per nursing patient pt still experiencing melena. Patient's hemoglobin has remained stable and has no leukocytosis. Patient going for HD today. Objective - Vital Signs/Intake and Output Vital Signs (last 24 hours): Temp Pulse Resp BP Pulse Ox 98.5 F 85 16 126/59 L 99 11/07/17 08:00 11/07/17 10:00 11/07/17 10:00 11/07/17 10:00 11/07/17 10:00 Intake and Output: 11/07/17 11/07/17 06:59 18:59 Intake Total 900 520 Balance 900 520 - Medications Medications: Current Medications Epoetin Gonzalo (Procrit) 5,000 unit IV MWF [facility] Last Admin: 11/05/17 22:46 Dose: 5,000 unit Metronidazole (Flagyl 500mg/100ml Ns) 100 mls @ 100 mls/hr IVPB Q8 [facility] PRN Reason: Protocol Last Admin: 11/07/17 08:09 Dose: 100 mls/hr Ceftriaxone Sodium 1 gm/ (Sodium Chloride) 100 mls @ 100 mls/hr IVPB DAILY [facility] PRN Reason: Protocol Last Admin: 11/07/17 08:10 Dose: 100 mls/hr Insulin Human Regular (Humulin R) 0 units SC ACCU-CHECK [facility] PRN Reason: Protocol Last Admin: 11/06/17 23:00 Dose: Not Given Pantoprazole Sodium (Protonix Inj) 40 mg IVP DAILY [facility] Last Admin: 11/07/17 08:25 Dose: 40 mg Silver Sulfadiazine (Silvadene 1% 50 Gm) 0 applic TOP BID [facility] Last Admin: 11/07/17 08:10 Dose: 1 applic - Labs Labs: 11/07/17 05:15 11/07/17 05:15 PT 12.8 Seconds (9.8-13.1) 11/04/17 11:09 INR 1.2 (0.9-1.2) 11/04/17 11:09 APTT 23.7 Seconds (25.6-37.1) L 11/04/17 11:09 Assessment and Plan - Assessment and Plan (Free Text) Assessment: 67F presents with hemorrhagic shock 2/2 GI bleed likely due to ischemic colitis Colonoscopy 10/26/17 - severe ischemic colitis up till at least the descending colon Plan: - Will start patient on clear liquid diet -Advance diet as tolerated -Monitor H/H - Monitor vitals - maintain SBP above 100 - serial abdominal exams -Limit use of heparin during dialysis as patient is still having melena Further recs per Dr. [place] PGY2
--- NOTE | 2017-11-07 11:34 | CP.PCM.CON ---
History of Present Illness - History of Present Illness History of Present Illness: Infectious Disease Consultation Note- asked to see this patient at the request of hospitalist to help with antibiotic management for ischemic colitis. HPI- history obtained from medical chart mostly.Patient is a 67 year old female with past medical history includes ESRD on dialysis, Type 2 DM, HTN, obesity, history of old CVA in 2011, atrial fibrillation, GI bleed with hemorrhagic shock just last week at [facility]. During that time the patient had an episode of cardiac arrest and respiratory failure and required intubation and hemodynamic monitoring in the ICU due to hypotensive shock from extravasation. She developed ischemic colitis that was diagnosed with colonosand transferred to [facility] acute rehab for PT/OT. She was transferred to [facility] ICU due to rectal bleed with hypovolemia and suspected sepsis.copy that showed colonic diverticulosis, internal hemorrhoids and diffuse severe inflammation with ulcerations in the entire colon, severe ischemic colitis. On 11/04 she started to have worsening of rectal bleed , with blood clots and hypotension , fever Tmax 102 and minimal lower abdominal tenderness. Full septic panel was ordered , Cipro and Flagyl given , IVF ( bolus started ). Patient was then sent to [facility] ED then to ICU for admission due to sepsis and GI bleed. is off pressors now, has received multiple PRBC transfusions. GI and surgery consulted . Pt continues to have rectal bleeding. currently pt. is getting HD through right chest HD catheter, awake but drowsy. as per nurse she continues to have matias colored stools. denies any fever. pt. is now on flagyl and ceftriaxone here as per primary team here, however as per med records she was on IV vancomyicn and meropenem for 5 days at [facility] as per ID doctor there and then all abx were d/c as no infectious disease source was found. Review of Systems - Review of Systems Review of Systems: ROS- denies any fever or chills, denies any ENRIQUEZ, denies any cough or sob, denies any lottie pain, had abdominal pian but denies it now, matias colored stool as per nurse Past Patient History - Infectious Disease Hx of Infectious Diseases: None - Tetanus Immunizations Tetanus Immunization: Up to Date - Past Medical History & Family History Past Medical History?: Yes - Past Social History Smoking Status: Never Smoked - CARDIAC Hx Cardia Arrhythmia: No Hx Congestive Heart Failure: No Hx Hypercholesterolemia: Yes Hx Hypertension: Yes Hx Mitral Valve Prolapse: No Hx Pacemaker: No Hx Peripheral Edema: No - PULMONARY Hx Asthma: Yes Hx Bronchitis: No Hx Chronic Obstructive Pulmonary Disease (COPD): No Hx Emphysema: No Hx Pneumonia: No Hx Sleep Apnea: No - NEUROLOGICAL Hx Alzheimer's Disease: No Hx Dementia: No Hx Migraine: No Hx Parkinson's Disease: No Hx Seizures: No Hx Transient Ischemic Attacks (TIA): Yes - HEENT Hx HEENT Problems: No - RENAL Hx Chronic Kidney Disease: Yes Hx Kidney Stones: No - ENDOCRINE/METABOLIC Hx Hyperthyroidism: No Hx Hypothyroidism: Yes - HEMATOLOGICAL/ONCOLOGICAL Hx Anemia: Yes (secondary to rectal bleeding-resolved.) Hx Sickle Cell Disease: No - INTEGUMENTARY Hx Dermatological Problems: No - MUSCULOSKELETAL/RHEUMATOLOGICAL Hx Arthritis: No Hx Falls: No Hx Fractures: No Hx Osteoporosis: No - GASTROINTESTINAL Hx Crohn's Disease: No Hx Diverticulitis: Yes Hx Gall Bladder Disease: No Hx Pancreatitis: No - GENITOURINARY/GYNECOLOGICAL Hx Sexually Transmitted Disorders: No - PSYCHIATRIC Hx Anxiety: No Hx Bipolar Disorder: No Hx Depression: No Hx Paranoia: No Hx Post Traumatic Stress Disorder: No Hx Schizophrenia: No Hx Substance Use: No - SURGICAL HISTORY Hx Appendectomy: No Hx Cholecystectomy: No Hx Coronary Stent: No - ANESTHESIA Hx Anesthesia Reactions: No Hx Malignant Hyperthermia: No Meds Allergies/Adverse Reactions: Allergies Allergy/AdvReac Type Severity Reaction Status Date / Time Latex, Natural Rubber Allergy Unknown RASH Verified 10/26/17 14:13 - Medications Medications: Current Medications Epoetin Gonzalo (Procrit) 5,000 unit IV MWF [facility] Last Admin: 11/05/17 22:46 Dose: 5,000 unit Metronidazole (Flagyl 500mg/100ml Ns) 100 mls @ 100 mls/hr IVPB Q8 [facility] PRN Reason: Protocol Last Admin: 11/07/17 08:09 Dose: 100 mls/hr Ceftriaxone Sodium 1 gm/ (Sodium Chloride) 100 mls @ 100 mls/hr IVPB DAILY [facility] PRN Reason: Protocol Last Admin: 11/07/17 08:10 Dose: 100 mls/hr Insulin Human Regular (Humulin R) 0 units SC ACCU-CHECK [facility] PRN Reason: Protocol Last Admin: 11/06/17 23:00 Dose: Not Given Pantoprazole Sodium (Protonix Inj) 40 mg IVP DAILY [facility] Last Admin: 11/07/17 08:25 Dose: 40 mg Silver Sulfadiazine (Silvadene 1% 50 Gm) 0 applic TOP BID [facility] Last Admin: 11/07/17 08:10 Dose: 1 applic Physical Exam - Constitutional Appears: No Acute Distress, Chronically Ill - Head Exam Head Exam: ATRAUMATIC - ENT Exam ENT Exam: Normal Oropharynx - Neck Exam Neck exam: Positive for: Full Rom - Respiratory Exam Respiratory Exam: NORMAL BREATHING PATTERN Additional comments: no wheezing breath sounds heard B/L - Cardiovascular Exam Cardiovascular Exam: RRR, +S1, +S2 - GI/Abdominal Exam GI & Abdominal Exam: Soft Additional comments: no distention bowel sounds heard No tenderness no guarding, no rebound - Extremities Exam Additional comments: no edema B/L LE - Neurological Exam Neurological exam: Alert, Oriented x3 Additional comments: somewhat drowsy Results - Vital Signs Recent Vital Signs: Last Vital Signs Temp 98.5 F 11/07/17 08:00 Pulse 85 11/07/17 10:00 Resp 16 11/07/17 10:00 BP 126/59 L 11/07/17 10:00 Pulse Ox 99 11/07/17 10:00 - Labs Result Diagrams: 11/07/17 14:10 11/07/17 05:15 Labs: Laboratory Results - last 24 hr 11/06/17 11/06/17 11/06/17 04:20 04:20 17:12 WBC RBC Hgb Hct MCV MCH MCHC RDW Plt Count MPV Neut % (Auto) Lymph % (Auto) Dixon % (Auto) Eos % (Auto) Baso % (Auto) Neut # (Auto) Lymph # (Auto) Dixon # (Auto) Eos # (Auto) Baso # (Auto) Sodium Potassium Chloride Carbon Dioxide Anion Gap BUN Creatinine Est GFR ( Amer) Est GFR (Non-Af Amer) POC Glucose (mg/dL) 111 H Random Glucose Hemoglobin A1c 6.0 Lactic Acid Calcium Total Bilirubin AST ALT Alkaline Phosphatase Total Protein Albumin Globulin Albumin/Globulin Ratio Procalcitonin 3.23 H 11/06/17 11/07/17 11/07/17 18:00 05:15 05:15 WBC 7.8 5.9 RBC 3.81 3.92 Hgb 11.2 L 11.6 L Hct 34.4 35.2 MCV 90.3 89.8 MCH 29.5 29.6 MCHC 32.7 L 33.0 RDW 16.2 H 16.2 H Plt Count 110 L 111 L MPV 7.4 Neut % (Auto) 81.5 H Lymph % (Auto) 7.1 L Dixon % (Auto) 10.1 H Eos % (Auto) 1.0 Baso % (Auto) 0.3 Neut # (Auto) 4.8 Lymph # (Auto) 0.4 L Dixon # (Auto) 0.6 Eos # (Auto) 0.1 Baso # (Auto) 0.0 Sodium 139 Potassium 3.6 Chloride 104 Carbon Dioxide 23 Anion Gap 16 BUN 34 H Creatinine 5.1 H Est GFR ( Amer) 10 Est GFR (Non-Af Amer) 8 POC Glucose (mg/dL) Random Glucose 107 H Hemoglobin A1c Lactic Acid Calcium 9.3 Total Bilirubin 0.4 AST 16 ALT 38 Alkaline Phosphatase 78 Total Protein 5.0 L Albumin 2.0 L Globulin 2.9 Albumin/Globulin Ratio 0.7 L Procalcitonin 11/07/17 11/07/17 05:15 05:44 WBC RBC Hgb Hct MCV MCH MCHC RDW Plt Count MPV Neut % (Auto) Lymph % (Auto) Dixon % (Auto) Eos % (Auto) Baso % (Auto) Neut # (Auto) Lymph # (Auto) Dixon # (Auto) Eos # (Auto) Baso # (Auto) Sodium Potassium Chloride Carbon Dioxide Anion Gap BUN Creatinine Est GFR ( Amer) Est GFR (Non-Af Amer) POC Glucose (mg/dL) 99 Random Glucose Hemoglobin A1c Lactic Acid 0.6 L Calcium Total Bilirubin AST ALT Alkaline Phosphatase Total Protein Albumin Globulin Albumin/Globulin Ratio Procalcitonin Laboratory Results - last 72 hr 11/04/17 11/04/17 11/04/17 15:37 17:30 17:45 WBC 15.8 H RBC 3.35 L Hgb 9.8 L D Hct 30.3 L MCV 90.6 MCH 29.3 MCHC 32.4 L RDW 15.9 H Plt Count 160 MPV 7.7 Neut % (Auto) 88.8 H Lymph % (Auto) 4.5 L Dixon % (Auto) 6.0 Eos % (Auto) 0.3 Baso % (Auto) 0.4 Neut # (Auto) 14.1 H Lymph # (Auto) 0.7 L Dixon # (Auto) 1.0 H Eos # (Auto) 0.0 Baso # (Auto) 0.1 Sodium Potassium Chloride Carbon Dioxide Anion Gap BUN Creatinine Est GFR ( Amer) Est GFR (Non-Af Amer) POC Glucose (mg/dL) 105 Random Glucose Hemoglobin A1c Lactic Acid 0.7 Calcium Total Bilirubin AST ALT Alkaline Phosphatase Total Protein Albumin Globulin Albumin/Globulin Ratio Procalcitonin Urine Color Urine Clarity Urine pH Ur Specific [place] Urine Protein Urine Glucose (UA) Urine Ketones Urine Blood Urine Nitrate Urine Bilirubin Urine Urobilinogen Ur Leukocyte Esterase Urine RBC (Auto) Urine Microscopic WBC Ur Squamous Epith Cells 11/04/17 11/04/17 11/04/17 17:59 20:52 23:28 WBC 14.1 H RBC 3.42 L Hgb 10.0 L Hct 31.0 L MCV 90.5 MCH 29.2 MCHC 32.2 L RDW 16.6 H Plt Count 156 MPV 7.7 Neut % (Auto) 85.7 H Lymph % (Auto) 4.6 L Dixon % (Auto) 8.8 Eos % (Auto) 0.6 Baso % (Auto) 0.3 Neut # (Auto) 12.1 H Lymph # (Auto) 0.6 L Dixon # (Auto) 1.2 H Eos # (Auto) 0.1 Baso # (Auto) 0.0 Sodium Potassium Chloride Carbon Dioxide Anion Gap BUN Creatinine Est GFR ( Amer) Est GFR (Non-Af Amer) POC Glucose (mg/dL) 162 H Random Glucose Hemoglobin A1c Lactic Acid Calcium Total Bilirubin AST ALT Alkaline Phosphatase Total Protein Albumin Globulin Albumin/Globulin Ratio Procalcitonin Urine Color Yellow Urine Clarity Slighty-cloudy Urine pH 7.0 Ur Specific [place] 1.009 Urine Protein 100 Urine Glucose (UA) >=500 Urine Ketones Negative Urine Blood Negative Urine Nitrate Negative Urine Bilirubin Negative Urine Urobilinogen 0.2-1.0 Ur Leukocyte Esterase Neg Urine RBC (Auto) 1 Urine Microscopic WBC 4 Ur Squamous Epith Cells < 1 11/05/17 11/05/17 11/05/17 11:28 12:00 12:00 WBC 9.7 RBC 4.10 Hgb 12.3 D Hct 36.7 MCV 89.5 MCH 30.0 MCHC 33.5 RDW 16.4 H Plt Count 150 MPV Neut % (Auto) Lymph % (Auto) Dixon % (Auto) Eos % (Auto) Baso % (Auto) Neut # (Auto) Lymph # (Auto) Dixon # (Auto) Eos # (Auto) Baso # (Auto) Sodium 138 Potassium 4.5 Chloride 105 Carbon Dioxide 18 L Anion Gap 20 BUN 72 H Creatinine 6.6 H Est GFR ( Amer) 8 Est GFR (Non-Af Amer) 6 POC Glucose (mg/dL) 192 H Random Glucose 188 H Hemoglobin A1c Lactic Acid Calcium 9.2 Total Bilirubin 0.4 AST 17 ALT 38 Alkaline Phosphatase 82 Total Protein 5.3 L Albumin 2.2 L D Globulin 3.1 Albumin/Globulin Ratio 0.7 L Procalcitonin Urine Color Urine Clarity Urine pH Ur Specific [place] Urine Protein Urine Glucose (UA) Urine Ketones Urine Blood Urine Nitrate Urine Bilirubin Urine Urobilinogen Ur Leukocyte Esterase Urine RBC (Auto) Urine Microscopic WBC Ur Squamous Epith Cells 11/05/17 11/05/17 11/05/17 16:06 20:45 23:06 WBC RBC Hgb Hct MCV MCH MCHC RDW Plt Count MPV Neut % (Auto) Lymph % (Auto) Dixon % (Auto) Eos % (Auto) Baso % (Auto) Neut # (Auto) Lymph # (Auto) Dixon # (Auto) Eos # (Auto) Baso # (Auto) Sodium Potassium Chloride Carbon Dioxide Anion Gap BUN Creatinine Est GFR ( Amer) Est GFR (Non-Af Amer) POC Glucose (mg/dL) 174 H 111 H Random Glucose Hemoglobin A1c Lactic Acid 0.8 Calcium Total Bilirubin AST ALT Alkaline Phosphatase Total Protein Albumin Globulin Albumin/Globulin Ratio Procalcitonin Urine Color Urine Clarity Urine pH Ur Specific [place] Urine Protein Urine Glucose (UA) Urine Ketones Urine Blood Urine Nitrate Urine Bilirubin Urine Urobilinogen Ur Leukocyte Esterase Urine RBC (Auto) Urine Microscopic WBC Ur Squamous Epith Cells 11/06/17 11/06/17 11/06/17 04:20 04:20 04:20 WBC 8.1 RBC 3.98 Hgb 11.7 L Hct 35.9 MCV 90.2 MCH 29.5 MCHC 32.7 L RDW 16.5 H Plt Count 115 L D MPV Neut % (Auto) Lymph % (Auto) Dixon % (Auto) Eos % (Auto) Baso % (Auto) Neut # (Auto) Lymph # (Auto) Dixon # (Auto) Eos # (Auto) Baso # (Auto) Sodium 136 Potassium 3.3 L Chloride 101 Carbon Dioxide 29 Anion Gap 9 L BUN 26 H Creatinine 3.6 H Est GFR ( Amer) 15 Est GFR (Non-Af Amer) 13 POC Glucose (mg/dL) Random Glucose 114 H Hemoglobin A1c Lactic Acid Calcium 9.0 Total Bilirubin AST ALT Alkaline Phosphatase Total Protein Albumin Globulin Albumin/Globulin Ratio Procalcitonin 3.23 H Urine Color Urine Clarity Urine pH Ur Specific [place] Urine Protein Urine Glucose (UA) Urine Ketones Urine Blood Urine Nitrate Urine Bilirubin Urine Urobilinogen Ur Leukocyte Esterase Urine RBC (Auto) Urine Microscopic WBC Ur Squamous Epith Cells 11/06/17 11/06/17 11/06/17 04:20 05:54 11:07 WBC RBC Hgb Hct MCV MCH MCHC RDW Plt Count MPV Neut % (Auto) Lymph % (Auto) Dixon % (Auto) Eos % (Auto) Baso % (Auto) Neut # (Auto) Lymph # (Auto) Dixon # (Auto) Eos # (Auto) Baso # (Auto) Sodium Potassium Chloride Carbon Dioxide Anion Gap BUN Creatinine Est GFR ( Amer) Est GFR (Non-Af Amer) POC Glucose (mg/dL) 131 H 127 H Random Glucose Hemoglobin A1c 6.0 Lactic Acid Calcium Total Bilirubin AST ALT Alkaline Phosphatase Total Protein Albumin Globulin Albumin/Globulin Ratio Procalcitonin Urine Color Urine Clarity Urine pH Ur Specific [place] Urine Protein Urine Glucose (UA) Urine Ketones Urine Blood Urine Nitrate Urine Bilirubin Urine Urobilinogen Ur Leukocyte Esterase Urine RBC (Auto) Urine Microscopic WBC Ur Squamous Epith Cells 11/06/17 11/06/17 11/07/17 17:12 18:00 05:15 WBC 7.8 5.9 RBC 3.81 3.92 Hgb 11.2 L 11.6 L Hct 34.4 35.2 MCV 90.3 89.8 MCH 29.5 29.6 MCHC 32.7 L 33.0 RDW 16.2 H 16.2 H Plt Count 110 L 111 L MPV 7.4 Neut % (Auto) 81.5 H Lymph % (Auto) 7.1 L Dixon % (Auto) 10.1 H Eos % (Auto) 1.0 Baso % (Auto) 0.3 Neut # (Auto) 4.8 Lymph # (Auto) 0.4 L Dixon # (Auto) 0.6 Eos # (Auto) 0.1 Baso # (Auto) 0.0 Sodium Potassium Chloride Carbon Dioxide Anion Gap BUN Creatinine Est GFR ( Amer) Est GFR (Non-Af Amer) POC Glucose (mg/dL) 111 H Random Glucose Hemoglobin A1c Lactic Acid Calcium Total Bilirubin AST ALT Alkaline Phosphatase Total Protein Albumin Globulin Albumin/Globulin Ratio Procalcitonin Urine Color Urine Clarity Urine pH Ur Specific [place] Urine Protein Urine Glucose (UA) Urine Ketones Urine Blood Urine Nitrate Urine Bilirubin Urine Urobilinogen Ur Leukocyte Esterase Urine RBC (Auto) Urine Microscopic WBC Ur Squamous Epith Cells 11/07/17 11/07/17 11/07/17 05:15 05:15 05:44 WBC RBC Hgb Hct MCV MCH MCHC RDW Plt Count MPV Neut % (Auto) Lymph % (Auto) Dixon % (Auto) Eos % (Auto) Baso % (Auto) Neut # (Auto) Lymph # (Auto) Dixon # (Auto) Eos # (Auto) Baso # (Auto) Sodium 139 Potassium 3.6 Chloride 104 Carbon Dioxide 23 Anion Gap 16 BUN 34 H Creatinine 5.1 H Est GFR ( Amer) 10 Est GFR (Non-Af Amer) 8 POC Glucose (mg/dL) 99 Random Glucose 107 H Hemoglobin A1c Lactic Acid 0.6 L Calcium 9.3 Total Bilirubin 0.4 AST 16 ALT 38 Alkaline Phosphatase 78 Total Protein 5.0 L Albumin 2.0 L Globulin 2.9 Albumin/Globulin Ratio 0.7 L Procalcitonin Urine Color Urine Clarity Urine pH Ur Specific [place] Urine Protein Urine Glucose (UA) Urine Ketones Urine Blood Urine Nitrate Urine Bilirubin Urine Urobilinogen Ur Leukocyte Esterase Urine RBC (Auto) Urine Microscopic WBC Ur Squamous Epith Cells 11/07/17 11/07/17 11:35 14:10 WBC 4.4 L RBC 4.03 Hgb 11.9 L Hct 36.6 MCV 90.7 MCH 29.4 MCHC 32.5 L RDW 16.5 H Plt Count 115 L MPV Neut % (Auto) Lymph % (Auto) Dixon % (Auto) Eos % (Auto) Baso % (Auto) Neut # (Auto) Lymph # (Auto) Dixon # (Auto) Eos # (Auto) Baso # (Auto) Sodium Potassium Chloride Carbon Dioxide Anion Gap BUN Creatinine Est GFR ( Amer) Est GFR (Non-Af Amer) POC Glucose (mg/dL) 106 Random Glucose Hemoglobin A1c Lactic Acid Calcium Total Bilirubin AST ALT Alkaline Phosphatase Total Protein Albumin Globulin Albumin/Globulin Ratio Procalcitonin Urine Color Urine Clarity Urine pH Ur Specific [place] Urine Protein Urine Glucose (UA) Urine Ketones Urine Blood Urine Nitrate Urine Bilirubin Urine Urobilinogen Ur Leukocyte Esterase Urine RBC (Auto) Urine Microscopic WBC Ur Squamous Epith Cells Microbiology 11/04/17 11:09 Blood Blood Culture - Preliminary NO GROWTH AFTER 3 DAYS 11/04/17 17:59 Urine,Poe Urine Culture - Final No Growth (<1,000 CFU/ML) 11/04/17 18:00 Nose MRSA Culture (Admit) - Final MRSA NOT DETECTED Accession No. : [id number] Patient Name / ID : RILEY Grant / [id number] Exam Date : 11/04/2017 10:26:41 ( Approved ) Study Comment : Sex / Age : F / [id number] Creator : Coleen Santillan MD Dictator : Coleen Santillan MD Legal Coordinator : Utility System Repairer : Coleen Santillan MD Approver2 : Report Date : 11/04/2017 12:18:42 My Comment : HISTORY: Sepsis Patient COMPARISON: No prior. FINDINGS: The right-sided dialysis catheter terminates in the right atrium. LUNGS: The lungs are well inflated. There is mild pulmonary venous congestion. No focal consolidation. PLEURA: No significant pleural effusion identified, no pneumothorax apparent. CARDIOVASCULAR: The heart is normal in size. Atherosclerotic aortic arch calcifications are present. OSSEOUS STRUCTURES: No significant abnormalities. VISUALIZED UPPER ABDOMEN: Normal. OTHER FINDINGS: None. IMPRESSION: Right-sided dialysis catheter terminates in the right atrium. Mild pulmonary venous congestion. No active pulmonary disease. Assessment & Plan (1) ESRD (end stage renal disease) on dialysis Status: Acute (2) Ischemic colitis Status: Acute (3) History of cardiac arrest Status: Acute (4) Gastrointestinal hemorrhage Status: Acute - Assessment and Plan (Free Text) Assessment: A/P- Patient is a 67 year old female with past medical history includes ESRD on dialysis, Type 2 DM, HTN, obesity, history of old CVA in 2011, atrial fibrillation, GI bleed with hemorrhagic shock just last week at [facility]. During that time the patient had an episode of cardiac arrest and respiratory failure and required intubation and hemodynamic monitoring in the ICU due to hypotensive shock from extravasation. She developed ischemic colitis that was diagnosed with colonosand transferred to [facility] acute rehab for PT/OT. She was transferred to [facility] ICU due to rectal bleed with hypovolemia and suspected sepsis.copy that showed colonic diverticulosis, internal hemorrhoids and diffuse severe inflammation with ulcerations in the entire colon, severe ischemic colitis. On 11/04 she started to have worsening of rectal bleed , with blood clots and hypotension , fever Tmax 102 and minimal lower abdominal tenderness. Full septic panel was ordered , Cipro and Flagyl given , IVF ( bolus started ). Patient was then sent to [facility] ED then to ICU for rule out sepsis and GI bleed. no sign of infection at this time all blood and urine cultures are negative.stool c.diff AG and toxin negative. pt. is maintained on empiric IV flagyl and ceftriaoxne afebrile mild leukocytoiss that he had has resolved cxr- negative plan- check another stool c.diff tox and AG check lactate level. since patient is afebirle and normal wbc count advise to continue with current empiric antibiotic therapy of flagyl and ceftriaxone. monitor wbc and temp. GI and surgical f/u. all labs and imaging reviewed. Thank you for allowing me to take part in the care of this patient. ICU time 60 minutes.
[2017-11-07] MEDS: Insulin Regular 100 units/ml SC SCH ×2 (11:44→23:53)
[2017-11-07] MEDS ORDERED: Desmopressin 4 mcg/ml Inj (10 ml) IV ONE (12:06)
--- NOTE | 2017-11-07 12:29 | CP.PCM.PN ---
Subjective - Date & Time of Evaluation Date of Evaluation: 11/07/17 Time of Evaluation: 12:00 - Subjective Subjective: Still with rectal bleeding Maroon colored stools 5 x last night had 2 so far this am no fever + abd discomfort denies CP no SOB Sched for HD today Objective - Vital Signs/Intake and Output Vital Signs (last 24 hours): Temp Pulse Resp BP Pulse Ox 98.7 F 85 14 123/67 100 11/07/17 12:00 11/07/17 12:00 11/07/17 12:00 11/07/17 12:00 11/07/17 12:00 Intake and Output: 11/07/17 11/07/17 06:59 18:59 Intake Total 900 680 Balance 900 680 - Medications Medications: Current Medications Epoetin Gonzalo (Procrit) 5,000 unit IV MWF [facility] Last Admin: 11/05/17 22:46 Dose: 5,000 unit Metronidazole (Flagyl 500mg/100ml Ns) 100 mls @ 100 mls/hr IVPB Q8 [facility] PRN Reason: Protocol Last Admin: 11/07/17 08:09 Dose: 100 mls/hr Desmopressin Acetate 20 mcg/ (Sodium Chloride) 55 mls @ 165 mls/hr IV ONCE ONE Stop: 11/07/17 12:49 Insulin Human Regular (Humulin R) 0 units SC ACCU-CHECK [facility] PRN Reason: Protocol Last Admin: 11/07/17 11:44 Dose: Not Given Pantoprazole Sodium (Protonix Inj) 40 mg IVP DAILY [facility] Last Admin: 11/07/17 08:25 Dose: 40 mg Silver Sulfadiazine (Silvadene 1% 50 Gm) 0 applic TOP BID [facility] Last Admin: 11/07/17 08:10 Dose: 1 applic - Labs Labs: 11/07/17 05:15 11/07/17 05:15 PT 12.8 Seconds (9.8-13.1) 11/04/17 11:09 INR 1.2 (0.9-1.2) 11/04/17 11:09 APTT 23.7 Seconds (25.6-37.1) L 11/04/17 11:09 - Constitutional Appears: No Acute Distress, Chronically Ill - Head Exam Head Exam: ATRAUMATIC, NORMAL INSPECTION, NORMOCEPHALIC - Eye Exam Eye Exam: EOMI, Normal appearance Pupil Exam: NORMAL ACCOMODATION - ENT Exam ENT Exam: Mucous Membranes Dry, Normal External Ear Exam - Neck Exam Neck Exam: Full ROM. absent: Meningismus - Respiratory Exam Respiratory Exam: NORMAL BREATHING PATTERN. absent: Respiratory Distress - Cardiovascular Exam Cardiovascular Exam: Irregular Rhythm, +S1, +S2 - GI/Abdominal Exam GI & Abdominal Exam: Distended, Soft, Tenderness, Normal Bowel Sounds - Extremities Exam Extremities Exam: absent: Calf Tenderness Additional comments: left arm old AV fistula right femoral TLC - Back Exam Back Exam: absent: CVA tenderness (L), CVA tenderness (R) - Neurological Exam Neurological Exam: Alert, Awake, CN II-XII Intact, Oriented x3 Neuro motor strength exam: Left Upper Extremity: 5, Right Upper Extremity: 5, Left Lower Extremity: 5, Right Lower Extremity: 5 - Psychiatric Exam Psychiatric exam: Normal Affect, Normal Mood - Skin Skin Exam: Dry, Normal Color, Warm Assessment and Plan - Assessment and Plan (Free Text) Assessment: 67 yo female with multiple medical problems with history of recent CVA right MCA distribution . She was initially admitted to [facility] and transferred to [facility] acute rehab for PT/OT. She was transferred to [facility] ICU due to rectal bleed with hypovolemia and suspected sepsis. Her past medical history includes ESRD on dialysis, Type 2 DM, HTN, obesity, history of old CVA in 2011, atrial fibrillation, GI bleed with hemorrhagic shock just last week at [facility]. During that time the patient had an episode of cardiac arrest and respiratory failure and required intubation and hemodynamic monitoring in the ICU due to hypotensive shock from extravasation. She developed ischemic colitis that was diagnosed with colonoscopy that showed colonic diverticulosis, internal hemorrhoids and diffuse severe inflammation with ulcerations in the entire colon, severe ischemic colitis mucosal ulcerations up to 40cm dinorah. On 11/04 she started to have worsening of rectal bleed , with blood clots and hypotension , fever Tmax 102 and minimal lower abdominal tenderness. Full septic panel was ordered , Cipro and Flagyl given , IVF ( bolus started ). Patient was then sent to [facility] ED then to ICU for admission due to sepsis and GI bleed. At present s/p 4 unit PRBC transfusion with HGb 11.6 today , off Levophed drip since 11/05. GI and surgery consulted . Pt continues to have rectal bleeding. 1. Hypovolemic shock most likely secondary to GI bleed and poss SEpsis s/p 4 unit PRBC transfusion Continue Rocephin and Flagyl Now off Levophed IVF hydration - gentle ID consult Lactic acid normal, WBC ct now normal 2.Recurrent lower GI bleed due to Ischemic colitis continue ICU monitoring , IVF and transfusion PRBC H/H monitoring GI and surgery consulted - No intervention at this time recommended Keep NPO Continue rocephin and Flagyl IV DDAVP given Transfuse Platelet 3. Acute on chronic anemia GI blood loss on top of kidney disease anemia 4 unit PRBC transfusion 4. History of recent cardiac arrest/respiratory arrest 5. ESRD on Dialysis MWF Nephro consulted continue HD as scheduled 6. 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 Paroxysmal Afib patient is in and out SR and afib on monitor, rate controlled continue to monitor closely no anticoag due to rectal bleed 8. DM Type II accuchecks and insulin coverage Pt off meds as she is NPO 9. DVT prophylaxis SCDs
[2017-11-07] MEDS ORDERED: Desmopressin 20 MCG in Sodium Chloride 0.9% 50 ML IV ONE (12:30)
--- NOTE | 2017-11-07 14:09 | CP.CCUPN ---
CCU Subjective - Physician Review Subjective (Free Text): Has had 2 loose BMs now within the past hour intermixed with, hemodynamics remain stable, getting HD now (routine). Denies any abdominal pain. Other VS and I/Os reviewed. ROS: No other pertinent negs or positives on 10+ system review PMSFH: All other Nursing and physician documentation reviewed to date; no new pertinent info noted relevant to current medical problems. EXAM- HEENT: no icterus, no gaze preference, pupils equal and reactive NECK: No JVD, supple, carotids equal upstroke bilat/no bruits, R IJV dialysis permacath- site clean, no redness / tenderness /discharge CHEST: decreased BS bases, no wheezes audible HEART: regular tachy, distant, S1S2, no rubs. ABD: soft, no distention, no tympany, + palp tenderness periumbilical area, BS hypoactive EXT: Mild R > L LE edema ( had R Fem TLC 2 weeks ago) No peripheral/ digital cyanosis, no calf tenderness or palpable cords, distal pulses intact and symmetrical. LUE AVF NEURO: left hemiparesis, moves R extremities spontaneously SKIN: no rashes, warm and dry. LABS: WBC= 5.9 HGB= 11.6 PLTs= 111K Co=699 K= 3.6 BA=226 HCO3= 23 BUN/Cr= 34/5.1 BS= 107 IMPRESSION / MAJOR PROBLEMS NOW: 1. Recurrent LGIB 2 Ischemic colitis 2. Hypovolemic Shock 2#1, r/o Severe Sepsis bacteremia with Shock 3. Acute on Chronic Disease Anemia 4. h/o Resuscitation form Cardiac / Resp Arrest 5. ESRD on HD 6. 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 Repeat dose of Desmopressin. 2. Consider replacement with functional platelets: 2 units today; as total count is not much different from yesterday but trends show a decreasing number. 3. Keep NPO for bowel rest. 4. Empriic abx coverage, ID now called for advice, was on Rocpehin and Flagyl. CCU Objective - Vital Signs / Intake & Output Vital Signs (Last 4 hours): Vital Signs Temp Pulse Resp BP Pulse Ox 11/07/17 12:00 98.7 F 85 14 123/67 100 11/07/17 10:00 85 16 126/59 L 99 Intake and Output (Last 8hrs): Intake & Output 11/06/17 11/07/17 11/07/17 22:59 06:59 14:59 Intake Total 660 660 680 Balance 660 660 680 Intake: IV 560 560 480 Intake, Piggyback 100 100 200 Other: # Bowel Movements 1 1 1
[2017-11-07 14:14] LABS: HEMOGLOBIN 11.9 g/dL (12.0-16.0); MEAN CELL VOLUME 90.7 fl (81.0-99.0); MEAN CORPUSCULAR HEMOGLOBIN 29.4 pg (27.0-31.0); MEAN CORPUSCULAR HGB CONC 32.5 g/dL (33.0-37.0); RBC 4.03 Mil/uL (3.80-5.20); RED CELL DISTRIBUTION WIDTH 16.5 % (11.5-14.5); WHITE BLOOD COUNT 4.4 K/uL (4.8-10.8)
--- NOTE | 2017-11-07 14:20 | CP.PCM.PN ---
Subjective - Date & Time of Evaluation Date of Evaluation: 11/07/17 Time of Evaluation: 14:16 - Subjective Subjective: Dialysis note She was seen on hemodialysis now. Patient is awake and conscious Still have active rectal bleeding Patient transfused multiple transfusions. Objective - Vital Signs/Intake and Output Vital Signs (last 24 hours): Temp Pulse Resp BP Pulse Ox 98.7 F 87 14 131/66 100 11/07/17 12:00 11/07/17 14:00 11/07/17 14:00 11/07/17 14:00 11/07/17 14:00 Intake and Output: 11/07/17 11/07/17 06:59 18:59 Intake Total 900 1140 Balance 900 1140 - Medications Medications: Current Medications Epoetin Gonzalo (Procrit) 5,000 unit IV MWF [facility] Last Admin: 11/05/17 22:46 Dose: 5,000 unit Metronidazole (Flagyl 500mg/100ml Ns) 100 mls @ 100 mls/hr IVPB Q8 ROBBI PRN Reason: Protocol Last Admin: 11/07/17 08:09 Dose: 100 mls/hr Insulin Human Regular (Humulin R) 0 units SC ACCU-CHECK ROBBI PRN Reason: Protocol Last Admin: 11/07/17 11:44 Dose: Not Given Pantoprazole Sodium (Protonix Inj) 40 mg IVP DAILY [facility] Last Admin: 11/07/17 08:25 Dose: 40 mg Silver Sulfadiazine (Silvadene 1% 50 Gm) 0 applic TOP BID [facility] Last Admin: 11/07/17 08:10 Dose: 1 applic - Labs Labs: 11/07/17 05:15 11/07/17 05:15 PT 12.8 Seconds (9.8-13.1) 11/04/17 11:09 INR 1.2 (0.9-1.2) 11/04/17 11:09 APTT 23.7 Seconds (25.6-37.1) L 11/04/17 11:09 - Constitutional Appears: No Acute Distress - Eye Exam Eye Exam: Conjunctival injection - ENT Exam ENT Exam: Mucous Membranes Moist - Respiratory Exam Respiratory Exam: Rhonchi. absent: Chest Wall Tenderness - Cardiovascular Exam Cardiovascular Exam: absent: Gallop, JVD, Rubs - GI/Abdominal Exam GI & Abdominal Exam: Soft, Normal Bowel Sounds - Extremities Exam Extremities Exam: absent: Calf Tenderness - Back Exam Back Exam: absent: CVA tenderness (L), CVA tenderness (R) - Neurological Exam Neurological Exam: Alert - Psychiatric Exam Psychiatric exam: Normal Affect - Skin Skin Exam: absent: Cyanosis Assessment and Plan (1) Colitis Status: Acute (2) ESRD (end stage renal disease) on dialysis Assessment & Plan: End stage renal disease receiving hemodialysis now. I discussed with the dialysis nurse at the bedside. Blood pressure noted about 110s systolic Patient has 2+ pitting edema in the legs therefore we will try to ultrafiltrate about 1500 mL as she is tolerating. Patient received multiple blood transfusion. Sodium bath 138 mEq Bicarbonate bath 34 Potassium bath 3 mEq The rest of the medical problem as noted: 67 yo female with multiple medical problems with history of new CVA with right MCA distribution that was initially admitted to [facility] acute rehab for PT/OT transferred and admitted to [facility] ICU for rectal bleed with hypovolemia and suspected sepsis. Her past medical history includes ESRD on dialysis, Type 2 DM, HTN, obesity, history of old CVA in 2011, atrial fibrillation, GI bleed with hemorrhagic shock just last week at [facility]. During that time the patient had an episode of cardiac arrest and respiratory failure in summery Patient with end stage renal disease on maintenance hemodialysis. Sunday. transfer to intensive care unit because of the active GI bleeding Anemia EPO on dialysis. active rectal bleeding ,patient was transfused ,multiple transfusion secondary to ischemic colitis which she has been diagnosed from previous hospitalization Other diagnosis patient admitted with acute CVA for rehabilitation. Status post cardiac arrest Status post massive bleeding from AV fistula. History of hyperphosphatemia History of secondary hyperparathyroidism Diabetes Mellitus Status: Acute (3) Gastrointestinal hemorrhage Status: Acute (4) History of cardiac arrest Status: Acute (5) Ischemic colitis Status: Acute (6) Shock Status: Acute
[2017-11-07] MEDS: Epoetin Alfa 20000 UNIT/ML Inj IV SCH (16:19)
[2017-11-07 16:39] LABS: HEMOGLOBIN 12.1 g/dL (12.0-16.0); MEAN CELL VOLUME 90.2 fl (81.0-99.0); MEAN CORPUSCULAR HEMOGLOBIN 29.1 pg (27.0-31.0); MEAN CORPUSCULAR HGB CONC 32.3 g/dL (33.0-37.0); RBC 4.16 Mil/uL (3.80-5.20); RED CELL DISTRIBUTION WIDTH 16.3 % (11.5-14.5); WHITE BLOOD COUNT 5.1 K/uL (4.8-10.8)
[2017-11-08] MEDS: metroNIDAZOLE 500mg/100ml NS 100 ML IVPB SCH ×3 (00:08→18:00)
[2017-11-08 05:29] LABS: HEMOGLOBIN 9.6 g/dL (12.0-16.0); MEAN CELL VOLUME 89.9 fl (81.0-99.0); MEAN CORPUSCULAR HEMOGLOBIN 29.6 pg (27.0-31.0); RBC 3.25 Mil/uL (3.80-5.20); RED CELL DISTRIBUTION WIDTH 15.8 % (11.5-14.5); WHITE BLOOD COUNT 5.7 K/uL (4.8-10.8)
[2017-11-08 05:37] LABS: CALCIUM 8.5 mg/dL (8.4-10.2)
[2017-11-08] MEDS ORDERED: Potassium Chloride 20 mEq 100 ML IVPB ONE (06:38)
[2017-11-08] MEDS: Insulin Regular 100 units/ml SC SCH ×4 (07:00→23:47)
[2017-11-08] MEDS: Silver Sulfadiazine 1% CREAM (50 gm) TOP SCH ×2 (09:04→18:00)
[2017-11-08 10:11] LABS: INR 2.2 (0.9-1.2); PARTIAL THROMBOPLASTIN TIME 42.2 Seconds (25.6-37.1); PROTHROMBIN TIME 24.2 Seconds (9.8-13.1)
--- NOTE | 2017-11-08 10:12 | CP.PCM.PN ---
Subjective - Date & Time of Evaluation Date of Evaluation: 11/08/17 Time of Evaluation: 10:11 - Subjective Subjective: Prevention in bed awake she is not in acute respiratory distress. Although she is still have active rectal bleeding. Dropping hemoglobin. Objective - Vital Signs/Intake and Output Vital Signs (last 24 hours): Temp Pulse Resp BP Pulse Ox 99.0 F 90 17 114/61 97 11/08/17 08:00 11/08/17 08:00 11/08/17 08:00 11/08/17 08:00 11/08/17 08:00 Intake and Output: 11/08/17 11/08/17 06:59 18:59 Intake Total 1252 Output Total 200 Balance 1052 - Medications Medications: Current Medications Epoetin Gonzalo (Procrit) 5,000 unit IV MWF [facility] Last Admin: 11/07/17 16:19 Dose: 5,000 unit Metronidazole (Flagyl 500mg/100ml Ns) 100 mls @ 100 mls/hr IVPB Q8 ROBBI PRN Reason: Protocol Last Admin: 11/08/17 09:04 Dose: 100 mls/hr Ceftriaxone Sodium 1 gm/ (Sodium Chloride) 100 mls @ 100 mls/hr IVPB DAILY ROBBI PRN Reason: Protocol Insulin Human Regular (Humulin R) 0 units SC ACCU-CHECK ROBBI PRN Reason: Protocol Last Admin: 11/08/17 07:00 Dose: Not Given Pantoprazole Sodium (Protonix Inj) 40 mg IVP DAILY [facility] Last Admin: 11/08/17 09:04 Dose: 40 mg Silver Sulfadiazine (Silvadene 1% 50 Gm) 0 applic TOP BID [facility] Last Admin: 11/08/17 09:04 Dose: 1 applic - Labs Labs: 11/08/17 04:20 11/08/17 04:20 PT 12.8 Seconds (9.8-13.1) 11/04/17 11:09 INR 1.2 (0.9-1.2) 11/04/17 11:09 APTT 23.7 Seconds (25.6-37.1) L 11/04/17 11:09 - Constitutional Appears: No Acute Distress - ENT Exam ENT Exam: Mucous Membranes Moist - Respiratory Exam Respiratory Exam: NORMAL BREATHING PATTERN. absent: Chest Wall Tenderness - Cardiovascular Exam Cardiovascular Exam: absent: Gallop, JVD, Rubs - GI/Abdominal Exam GI & Abdominal Exam: Soft, Normal Bowel Sounds - Extremities Exam Extremities Exam: absent: Calf Tenderness - Back Exam Back Exam: absent: CVA tenderness (L), CVA tenderness (R) - Neurological Exam Neurological Exam: Awake - Psychiatric Exam Psychiatric exam: Normal Affect - Skin Skin Exam: absent: Cyanosis Assessment and Plan (1) Colitis Status: Acute (2) ESRD (end stage renal disease) on dialysis Assessment & Plan: 67 yo female with multiple medical problems with history of new CVA with right MCA distribution that was initially admitted to [facility] acute rehab for PT/OT transferred and admitted to [facility] ICU for rectal bleed with hypovolemia and suspected sepsis. Her past medical history includes ESRD on dialysis, Type 2 DM, HTN, obesity, history of old CVA in 2011, atrial fibrillation, GI bleed with hemorrhagic shock just last week at [facility]. During that time the patient had an episode of cardiac arrest and respiratory failure in summery Patient with end stage renal disease on maintenance hemodialysis. Sunday. transfer to intensive care unit because of the active GI bleeding Anemia EPO on dialysis. active rectal bleeding ,patient was transfused ,multiple transfusion secondary to ischemic colitis which she has been diagnosed from previous hospitalization Other diagnosis patient admitted with acute CVA for rehabilitation. Status post cardiac arrest Status post massive bleeding from AV fistula. History of hyperphosphatemia History of secondary hyperparathyroidism Diabetes Mellitus Status: Acute (3) Gastrointestinal hemorrhage Status: Acute (4) History of cardiac arrest Status: Acute (5) Ischemic colitis Status: Acute (6) Shock Status: Acute
[2017-11-08] MEDS ORDERED: Phytonadione 10 mg/ml Inj (Adult) IVPB ONE (11:06)
--- NOTE | 2017-11-08 11:46 | CP.PCM.PN ---
Subjective - Date & Time of Evaluation Date of Evaluation: 11/08/17 Time of Evaluation: 11:30 - Subjective Subjective: Pt continues to have rectal bleed Had large amount of bleeding last night with blood clots Orederd transfusion of PRBC and FFP Was transfused Platelet last night No fever complains of some abd discomfort, tenderness on palpation denies CP no SOBVS stable so far Off Levophed Objective - Vital Signs/Intake and Output Vital Signs (last 24 hours): Temp Pulse Resp BP Pulse Ox 99.0 F 90 17 114/61 97 11/08/17 08:00 11/08/17 08:00 11/08/17 08:00 11/08/17 08:00 11/08/17 08:00 Intake and Output: 11/08/17 11/08/17 06:59 18:59 Intake Total 1252 Output Total 200 Balance 1052 - Medications Medications: Current Medications Epoetin Gonzalo (Procrit) 5,000 unit IV MWF [facility] Last Admin: 11/07/17 16:19 Dose: 5,000 unit Metronidazole (Flagyl 500mg/100ml Ns) 100 mls @ 100 mls/hr IVPB Q8 ROBBI PRN Reason: Protocol Last Admin: 11/08/17 09:04 Dose: 100 mls/hr Ceftriaxone Sodium 1 gm/ (Sodium Chloride) 100 mls @ 100 mls/hr IVPB DAILY ROBBI PRN Reason: Protocol Insulin Human Regular (Humulin R) 0 units SC ACCU-CHECK ROBBI PRN Reason: Protocol Last Admin: 11/08/17 07:00 Dose: Not Given Pantoprazole Sodium (Protonix Inj) 40 mg IVP DAILY [facility] Last Admin: 11/08/17 09:04 Dose: 40 mg Silver Sulfadiazine (Silvadene 1% 50 Gm) 0 applic TOP BID [facility] Last Admin: 11/08/17 09:04 Dose: 1 applic - Labs Labs: 11/08/17 04:20 11/08/17 04:20 PT 24.2 Seconds (9.8-13.1) H 11/08/17 09:57 INR 2.2 (0.9-1.2) H 11/08/17 09:57 APTT 42.2 Seconds (25.6-37.1) H 11/08/17 09:57 - Constitutional Appears: No Acute Distress, Chronically Ill - Head Exam Head Exam: ATRAUMATIC, NORMAL INSPECTION, NORMOCEPHALIC - Eye Exam Eye Exam: EOMI, Normal appearance Pupil Exam: NORMAL ACCOMODATION - ENT Exam ENT Exam: Mucous Membranes Dry, Normal External Ear Exam - Neck Exam Neck Exam: Full ROM. absent: Meningismus - Respiratory Exam Respiratory Exam: NORMAL BREATHING PATTERN. absent: Respiratory Distress - Cardiovascular Exam Cardiovascular Exam: Irregular Rhythm, +S1, +S2 - GI/Abdominal Exam GI & Abdominal Exam: Distended, + Tenderness, Normal Bowel Sounds - Extremities Exam Extremities Exam: absent: Calf Tenderness Additional comments: left arm old AV fistula right femoral TLC - Back Exam Back Exam: absent: CVA tenderness (L), CVA tenderness (R) - Neurological Exam Neurological Exam: Alert, Awake, CN II-XII Intact, Oriented x3 Neuro motor strength exam: Left Upper Extremity: 5, Right Upper Extremity: 5, Left Lower Extremity: 5, Right Lower Extremity: 5 - Psychiatric Exam Psychiatric exam: Normal Affect, Normal Mood - Skin Skin Exam: Dry, Normal Color, Warm Assessment and Plan - Assessment and Plan (Free Text) Assessment: 67 yo female with multiple medical problems with history of recent CVA right MCA distribution . She was initially admitted to [facility] and transferred to [facility] acute rehab for PT/OT. She is now [facility] ICU due to rectal bleed with hypovolemia and suspected sepsis. Her past medical history includes ESRD on dialysis, Type 2 DM, HTN, obesity, history of old CVA in 2011, atrial fibrillation, GI bleed with hemorrhagic shock just last week at [facility]. During that time the patient had an episode of cardiac arrest and respiratory failure and required intubation and hemodynamic monitoring in the ICU due to hypotensive shock from extravasation for AV Fistula. She developed ischemic colitis that was diagnosed by colonoscopy - showed colonic diverticulosis, internal hemorrhoids and diffuse severe inflammation with ulcerations in the entire colon, severe ischemic colitis mucosal ulcerations up to 40cm dinorah. On 11/04 she started to have worsening of rectal bleed , with blood clots and hypotension , fever Tmax 102 and minimal lower abdominal tenderness. Full septic panel was ordered , Cipro and Flagyl given , IVF ( bolus started ). Patient was then sent to [facility] ED then to ICU for admission due to sepsis and GI bleed. At present s/p 4 unit PRBC transfusion , off Levophed drip since 11/05. GI and surgery consulted . Pt continues to have rectal bleeding. 1. Hypovolemic shock most secondary to GI bleed and poss Sepsis s/p 4 unit PRBC transfusion - will transfuse 2 more units today ( total 6 units PRBC) Continue Rocephin and Flagyl Now off Levophed IVF hydration - gentle ID consulted Lactic acid normal, WBC ct now normal 2.Recurrent lower GI bleed due to Ischemic colitis continue ICU monitoring , IVF and transfusion PRBC Large amount of bleed overnight dropped 2.5 points in Hgb overnight now 9.6 H/H monitoring GI and surgery consulted - discussed with Dr Blank Plan for Surgery in am and poss Colonoscopy Keep NPO Continue rocephin and Flagyl IV DDAVP given Transfused 1 unit Platelet, ^ PRBC FFP ordered - INR now 2.2 3. Acute on chronic anemia GI blood loss on top of chronic kidney disease anemia 6 unit PRBC transfusion 4. History of recent cardiac arrest/respiratory arrest 5. ESRD on Dialysis MWF Nephro consulted continue HD as scheduled 6. 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 Paroxysmal Afib patient is in and out SR and afib on monitor, rate controlled continue to monitor closely no anticoag due to rectal bleed 8. DM Type II accuchecks and insulin coverage Pt off meds as she is NPO 9. DVT prophylaxis SCDs
--- NOTE | 2017-11-08 12:16 | CP.PCM.PN ---
Subjective - Date & Time of Evaluation Date of Evaluation: 11/08/17 Time of Evaluation: 06:45 - Subjective Subjective: Patient seen and examined this morning. As per nursing, patient had over 3 bloody BMs( ~200mL each) which contained fresh blood clots. Patient hypotensive and tachycardic over night. Hgb dropped from 12.1-->9.6. Objective - Vital Signs/Intake and Output Vital Signs (last 24 hours): Temp Pulse Resp BP Pulse Ox 99.0 F 90 17 114/61 97 11/08/17 08:00 11/08/17 08:00 11/08/17 08:00 11/08/17 08:00 11/08/17 08:00 Intake and Output: 11/08/17 11/08/17 06:59 18:59 Intake Total 1252 Output Total 200 Balance 1052 - Medications Medications: Current Medications Epoetin Gonzalo (Procrit) 5,000 unit IV MWF [facility] Last Admin: 11/07/17 16:19 Dose: 5,000 unit Metronidazole (Flagyl 500mg/100ml Ns) 100 mls @ 100 mls/hr IVPB Q8 ROBBI PRN Reason: Protocol Last Admin: 11/08/17 09:04 Dose: 100 mls/hr Ceftriaxone Sodium 1 gm/ (Sodium Chloride) 100 mls @ 100 mls/hr IVPB DAILY ROBBI PRN Reason: Protocol Insulin Human Regular (Humulin R) 0 units SC ACCU-CHECK ROBBI PRN Reason: Protocol Last Admin: 11/08/17 07:00 Dose: Not Given Pantoprazole Sodium (Protonix Inj) 40 mg IVP DAILY [facility] Last Admin: 11/08/17 09:04 Dose: 40 mg Silver Sulfadiazine (Silvadene 1% 50 Gm) 0 applic TOP BID [facility] Last Admin: 11/08/17 09:04 Dose: 1 applic - Labs Labs: 11/08/17 04:20 11/08/17 04:20 PT 24.2 Seconds (9.8-13.1) H 11/08/17 09:57 INR 2.2 (0.9-1.2) H 11/08/17 09:57 APTT 42.2 Seconds (25.6-37.1) H 11/08/17 09:57 - Constitutional Appears: No Acute Distress - Head Exam Head Exam: NORMOCEPHALIC - Eye Exam Eye Exam: EOMI, Normal appearance - ENT Exam ENT Exam: Mucous Membranes Moist - Respiratory Exam Respiratory Exam: NORMAL BREATHING PATTERN - Cardiovascular Exam Cardiovascular Exam: +S1, +S2 - GI/Abdominal Exam GI & Abdominal Exam: Soft, Tenderness - Neurological Exam Neurological Exam: Alert, Awake, Oriented x3 - Psychiatric Exam Psychiatric exam: Normal Mood - Skin Skin Exam: Dry, Intact, Warm Assessment and Plan - Assessment and Plan (Free Text) Assessment: 67F presents with hemorrhagic shock 2/2 GI bleed likely due to ischemic colitis Colonoscopy 10/26/17 - severe ischemic colitis up till at least the descending colon Plan: -Elevated INR --> 2.2 -Will hold surgery for now -F/u GI bleeding scan -Due to incomplete evaluation of colon during colonoscopy will speak with GI team about possible repeat colonoscopy as this may aid in determining extent of colon resection required - Keep patient NPO -Administed FFP s/p bleeding scan -Monitor H/H - Monitor vitals - maintain SBP above 100 - serial abdominal exams Further recs per Dr. [place] PGY2
--- NOTE | 2017-11-08 12:48 | CP.CCUPN ---
CCU Subjective - Physician Review Subjective (Free Text): Continued to have maroon colored bloody BMs, denies any abdominal discomfort, underwent routine HD yesterday, fluid removed = 1L. Given additional dose of Desmopressin yesterday and 1 unit Platelets. Other VS and I/Os reviewed. ROS: No other pertinent negs or positives on 10+ system review PMSFH: All other Nursing and physician documentation reviewed to date; no new pertinent info noted relevant to current medical problems. EXAM- HEENT: no icterus, no gaze preference, pupils equal and reactive NECK: No JVD, supple, carotids equal upstroke bilat/no bruits, R IJV dialysis permacath- site clean, no redness / tenderness /discharge CHEST: decreased BS bases, no wheezes audible HEART: regular tachy, distant, S1S2, no rubs. ABD: soft, no distention, no tympany, + palp tenderness periumbilical area, BS hypoactive EXT: Mild R > L LE edema ( had R Fem TLC 2 weeks ago) No peripheral/ digital cyanosis, no calf tenderness or palpable cords, distal pulses intact and symmetrical. LUE AVF NEURO: left hemiparesis, moves R extremities spontaneously SKIN: no rashes, warm and dry. LABS: WBC= 5.7 HGB= 9.6 PLTs= 116K Jz=341 K= 3.3 AK=961 HCO3= 27 BUN/Cr= 17/3.0 BS= 93 IMPRESSION / MAJOR PROBLEMS NOW: 1. Recurrent LGIB 2 Ischemic colitis 2. Hypovolemic Shock 2#1, r/o Severe Sepsis bacteremia with Shock 3. Acute on Chronic Disease Anemia 4. h/o Resuscitation form Cardiac / Resp Arrest 5. ESRD on HD 6. 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 Surgical team considering Colectomy, Repeat coags elevated, corrective FFP and Vit K ordered. 2. Surgical team requesting Nuclear GI Bleeding scan today as well. 3. HGb lower today, PRBCs at the discretion of PMD and need for standby units as per Surgical team. 4. Remains on empiric abx coverage with Rocephin and Flagyl. CCU Objective - Vital Signs / Intake & Output Vital Signs (Last 4 hours): Vital Signs Temp Pulse Resp BP Pulse Ox 11/08/17 12:00 98.1 F 92 H 23 121/67 100 Intake and Output (Last 8hrs): Intake & Output 11/07/17 11/08/17 11/08/17 22:59 06:59 14:59 Intake Total 852 720 Output Total 50 150 Balance 802 570 Intake: IV 560 720 Oral 0 0 Blood Product 292 Output: Stool 50 150 Other: # Bowel Movements 1 1
--- NOTE | 2017-11-08 13:24 | CP.PCM.PN ---
<SummerishanclintLux - Last Filed: 11/08/17 17:18> Subjective - Date & Time of Evaluation Date of Evaluation: 11/08/17 Time of Evaluation: 13:21 - Subjective Subjective: PGY5 GI Fellow Progress Note Patient seen and examined bedside this afternoon. She states that she is feeling better overall and only has some abdominal pain with palpation. Still passing bloody stool and blood clots. Denies any dizziness, lightheadedness. No nausea, vomiting, fever, chills. 12 system ROS performed and negative except where stated. Objective - Vital Signs/Intake and Output Vital Signs (last 24 hours): Temp Pulse Resp BP Pulse Ox 98.1 F 92 H 23 121/67 100 11/08/17 12:00 11/08/17 12:00 11/08/17 12:00 11/08/17 12:00 11/08/17 12:00 Intake and Output: 11/08/17 11/08/17 06:59 18:59 Intake Total 1252 Output Total 200 Balance 1052 - Medications Medications: Current Medications Epoetin Gonzalo (Procrit) 5,000 unit IV MWF [facility] Last Admin: 11/07/17 16:19 Dose: 5,000 unit Metronidazole (Flagyl 500mg/100ml Ns) 100 mls @ 100 mls/hr IVPB Q8 [facility] PRN Reason: Protocol Last Admin: 11/08/17 09:04 Dose: 100 mls/hr Ceftriaxone Sodium 1 gm/ (Sodium Chloride) 100 mls @ 100 mls/hr IVPB DAILY [facility] PRN Reason: Protocol Insulin Human Regular (Humulin R) 0 units SC ACCU-CHECK [facility] PRN Reason: Protocol Last Admin: 11/08/17 07:00 Dose: Not Given Pantoprazole Sodium (Protonix Inj) 40 mg IVP DAILY [facility] Last Admin: 11/08/17 09:04 Dose: 40 mg Silver Sulfadiazine (Silvadene 1% 50 Gm) 0 applic TOP BID [facility] Last Admin: 11/08/17 09:04 Dose: 1 applic - Labs Labs: 11/08/17 04:20 11/08/17 04:20 PT 24.2 Seconds (9.8-13.1) H 11/08/17 09:57 INR 2.2 (0.9-1.2) H 11/08/17 09:57 APTT 42.2 Seconds (25.6-37.1) H 11/08/17 09:57 - Constitutional Appears: No Acute Distress, Chronically Ill - Eye Exam Eye Exam: EOMI, PERRL - ENT Exam ENT Exam: Mucous Membranes Moist - Respiratory Exam Respiratory Exam: Clear to Ausculation Bilateral. absent: Rales, Rhonchi, Wheezes - Cardiovascular Exam Cardiovascular Exam: RRR, +S1, +S2 - GI/Abdominal Exam GI & Abdominal Exam: Soft, Tenderness, Normal Bowel Sounds. absent: Distended, Firm, Guarding, Rigid, Hernia, Mass, Organomegaly - Extremities Exam Extremities Exam: absent: Pedal Edema Additional comments: right hand wound noted - Neurological Exam Neurological Exam: Alert, Awake, Oriented x3 - Psychiatric Exam Psychiatric exam: Normal Affect, Normal Mood - Skin Skin Exam: Dry, Warm Assessment and Plan - Assessment and Plan (Free Text) Assessment: Patient is a 67yo female with PMHx significant for ESRD on HD, atrial fibrillation, recent acute CVA, asthma, DMT2, HTN, dyslipidemia who initially presented to [facility] with hemorrhage from AV fistula site. She suffered hemorrhagic shock, CVA and developed ischemic colitis, the later confirmed with colonoscopy on 10/26/17. She was stabilized and moved to rehabilitation at our facility but again developed hematochezia/melena and has since been moved to our intensive care unit. Our service has been reconsulted to evaluate patient for repeat colonoscopy prior to surgical intervention. Plan: -The patient will benefit from surgical resection of diseased colon 2/2 ischmic colitis -Surgery requesting repeat colonoscopy prior to procedure to determine extent of resection required -Patient is high risk for perforation given ongoing disease process, prior endoscopic findings, inability to properly prep, inability to administer enemas and active passage of blood clots -Recommend repeat cross sectional imaging to evaluate colon with CTA if further imaging warranted -Plan moving forward per surgical service -Case and plans from GI standpoint discussed with the patient and with patient' s son <Shani Blank - Last Filed: 11/08/17 17:43> Objective - Vital Signs/Intake and Output Vital Signs (last 24 hours): Temp Pulse Resp BP Pulse Ox 98.7 F 70 28 H 124/77 100 11/08/17 16:00 11/08/17 16:00 11/08/17 16:00 11/08/17 16:00 11/08/17 16:00 Intake and Output: 11/08/17 11/08/17 06:59 18:59 Intake Total 1252 1000 Output Total 200 Balance 1052 1000 - Medications Medications: Current Medications Epoetin Gonzalo (Procrit) 5,000 unit IV MWF [facility] Last Admin: 11/07/17 16:19 Dose: 5,000 unit Metronidazole (Flagyl 500mg/100ml Ns) 100 mls @ 100 mls/hr IVPB Q8 [facility] PRN Reason: Protocol Last Admin: 11/08/17 09:04 Dose: 100 mls/hr Ceftriaxone Sodium 1 gm/ (Sodium Chloride) 100 mls @ 100 mls/hr IVPB DAILY [facility] PRN Reason: Protocol Last Admin: 11/08/17 10:14 Dose: 100 mls/hr Sodium Chloride (Sodium Chloride 0.9%) 1,000 mls @ 30 mls/hr IV .Q24H [facility] Stop: 11/09/17 15:20 Last Admin: 11/08/17 15:44 Dose: 30 mls/hr Insulin Human Regular (Humulin R) 0 units SC ACCU-CHECK [facility] PRN Reason: Protocol Last Admin: 11/08/17 16:46 Dose: Not Given Pantoprazole Sodium (Protonix Inj) 40 mg IVP DAILY [facility] Last Admin: 11/08/17 09:04 Dose: 40 mg Silver Sulfadiazine (Silvadene 1% 50 Gm) 0 applic TOP BID [facility] Last Admin: 11/08/17 09:04 Dose: 1 applic - Labs Labs: 11/08/17 04:20 11/08/17 04:20 PT 24.2 Seconds (9.8-13.1) H 11/08/17 09:57 INR 2.2 (0.9-1.2) H 11/08/17 09:57 APTT 42.2 Seconds (25.6-37.1) H 11/08/17 09:57 Attending/Attestation - Attestation I have personally seen and examined this patient.: Yes I have fully participated in the care of the patient.: Yes I have reviewed all pertinent clinical information, including history, physical exam and plan: Yes Notes (Text): 11/08/17 17:37 I have seen and examined patient with GI fellow. She remains in critical care unit and continues to have bloody bowel movements, with coagulopathy and bleeding scan showing no bleeding in large bowel. She also reports ongoing LLQ abdominal pain but denies nausea, vomiting. Patient is being evaluated by the surgeon for OR. Discussed in length with previous GI Dr Montanez and surgeon regarding current clinical picture being compatible with ischemic colitis secondary to hemorrhagic shock due to bleeding from AV Fistula subsequent leading upto PA and embolic stroke. She has had ongoing rectal bleeding with many confluent ulcerations seen in left colon two weeks ago on a flex sigmoidoscopy. No yield with repeating colonoscopy as management will not change and patient has refused taking the prep. Rest of plan as per surgical service and MICU. Discussed with PMD and [employer] Worker - No plan for additional endoscopic evaluation given clinical scenario, will sign off case. Please reconsult as necessary, thank you.
[2017-11-08] MEDS ORDERED: Sodium Chloride 0.9% 1,000 ML IV SCH (15:30)
--- NOTE | 2017-11-08 15:44 | NM ---
PROCEDURE: Nuclear medicine gastrointestinal bleeding scan. HISTORY: R/o Lower GI tract bleeding site COMPARISON: None available. TECHNIQUE: 4 cc of patient blood was withdrawn and mixed with 21 mCi of technetium ultra tagged. Images of the abdomen and pelvis were obtained in the anterior and posterior projection at 1 min intervals over a period of 45 min. FINDINGS: Intense uptake in the stomach which is static, does not migrate distally. The findings are nonspecific likely severe gastritis. Physiologic activity was seen in the heart, liver, spleen and blood vessels. IMPRESSION: Findings consistent with severe/acute gastritis. No evidence of lower GI bleed.
[2017-11-08 20:32] LABS: ALB/GLOB RATIO 0.7 (1.0-2.1); CALCIUM 8.8 mg/dL (8.4-10.2)
[2017-11-08 22:36] LABS: INR 1.5 (0.9-1.2)
[2017-11-08 22:38] LABS: PROTHROMBIN TIME 16.4 Seconds (9.8-13.1)
[2017-11-08 22:43] LABS: INR 1.5 (0.9-1.2); PROTHROMBIN TIME 16.4 Seconds (9.8-13.1)
[2017-11-08] MEDS: Pantoprazole 40 MG in Sodium Chloride 0.9% 100 ML IVPB SCH (23:50)
[2017-11-09] MEDS: metroNIDAZOLE 500mg/100ml NS 100 ML IVPB SCH ×3 (00:01→17:18)
[2017-11-09] MEDS: Pantoprazole 40 MG in Sodium Chloride 0.9% 100 ML IVPB SCH ×4 (04:20→20:57)
[2017-11-09] MEDS ORDERED: Dextrose 50% SYRINGE Inj (50 ml) IVP ONE (04:27)
[2017-11-09 05:28] LABS: BASO % 0.7 % (0.0-2.0); EOS # 0.1 K/uL (0.0-0.7); EOS % 2.7 % (0.0-4.0); HEMOGLOBIN 10.7 g/dL (12.0-16.0); LYMPH # 0.4 K/uL (1.0-4.3); LYMPH % 8.9 % (20.0-40.0); MEAN CORPUSCULAR HEMOGLOBIN 28.6 pg (27.0-31.0); MEAN CORPUSCULAR HGB CONC 32.5 g/dL (33.0-37.0); MEAN PLATELET VOLUME 7.7 fl (7.2-11.7); MONO # 0.7 K/uL (0.0-0.8); MONO % 13.8 % (0.0-10.0); NEUT # 3.5 K/uL (1.8-7.0); NEUT % 73.9 % (50.0-75.0); PLATELET COUNT 107 K/uL (130-400); RBC 3.75 Mil/uL (3.80-5.20); RED CELL DISTRIBUTION WIDTH 19.1 % (11.5-14.5); WHITE BLOOD COUNT 4.7 K/uL (4.8-10.8)
[2017-11-09 05:49] LABS: ALB/GLOB RATIO 0.7 (1.0-2.1); ALBUMIN 2.3 g/dL (3.5-5.0); CALCIUM 9.2 mg/dL (8.4-10.2)
[2017-11-09 06:03] LABS: INR 1.3 (0.9-1.2); PARTIAL THROMBOPLASTIN TIME 30.4 Seconds (25.6-37.1); PROTHROMBIN TIME 14.6 Seconds (9.8-13.1)
[2017-11-09] MEDS: Insulin Regular 100 units/ml SC SCH ×3 (06:17→17:06)
[2017-11-09] MEDS ORDERED: Calcium Chloride 1000 mg/10 ml Syringe IV ONE (07:03)
[2017-11-09] MEDS ORDERED: Lidocaine 4% (Laryng-O-Jet) Kit MM ONE (07:03)
[2017-11-09] MEDS ORDERED: Etomidate 20 mg/10ml Inj IV ONE (07:04)
[2017-11-09] MEDS ORDERED: Phenylephrine 10 mg/ml Inj ONE (07:07)
[2017-11-09] MEDS ORDERED: Neostigmine 1:1000 (1 mg/ml) Inj ONE (07:07)
[2017-11-09] MEDS ORDERED: Rocuronium 10 mg/ml (5 ml) ONE ×2 (07:08→10:47)
[2017-11-09] MEDS ORDERED: Bupivacaine HCl 0.5% PF (30 ml) Inj ONE ×2 (07:11→08:38)
[2017-11-09] MEDS ORDERED: Sodium Chloride 0.9% 1,000 ML IV ONE (07:45)
[2017-11-09] MEDS ORDERED: Ketamine 50 mg/ml Inj (10 ml) ONE (07:52)
[2017-11-09] MEDS ORDERED: Sodium Chloride 0.9% 500 ML IV ONE (08:00)
[2017-11-09] MEDS ORDERED: Sodium Chloride 0.9% 250 ML IV ONE (08:00)
--- NOTE | 2017-11-09 08:06 | CP.PCM.PN ---
Subjective - Date & Time of Evaluation Date of Evaluation: 11/09/17 Time of Evaluation: 08:04 - Subjective Subjective: comfortable this AM for OR HD STABLE nad Objective - Vital Signs/Intake and Output Vital Signs (last 24 hours): Temp Pulse Resp BP Pulse Ox 98.5 F 63 16 109/58 L 100 11/09/17 06:41 11/09/17 06:41 11/09/17 06:41 11/09/17 06:41 11/09/17 06:41 Intake and Output: 11/09/17 11/09/17 06:59 18:59 Intake Total 1616 Balance 1616 - Medications Medications: Current Medications Epoetin Gonzalo (Procrit) 5,000 unit IV MWF [facility] Last Admin: 11/07/17 16:19 Dose: 5,000 unit Metronidazole (Flagyl 500mg/100ml Ns) 100 mls @ 100 mls/hr IVPB Q8 [facility] PRN Reason: Protocol Last Admin: 11/09/17 00:01 Dose: 100 mls/hr Ceftriaxone Sodium 1 gm/ (Sodium Chloride) 100 mls @ 100 mls/hr IVPB DAILY [facility] PRN Reason: Protocol Last Admin: 11/08/17 10:14 Dose: 100 mls/hr Sodium Chloride (Sodium Chloride 0.9%) 1,000 mls @ 30 mls/hr IV .Q24H [facility] Stop: 11/09/17 15:20 Last Admin: 11/08/17 15:44 Dose: 30 mls/hr Pantoprazole Sodium 40 mg/ (Sodium Chloride) 100 mls @ 20 mls/hr IVPB Q5H [facility] PRN Reason: 8 MG/HR Last Admin: 11/09/17 04:20 Dose: 20 mls/hr Insulin Human Regular (Humulin R) 0 units SC ACCU-CHECK [facility] PRN Reason: Protocol Last Admin: 11/09/17 06:17 Dose: Not Given Silver Sulfadiazine (Silvadene 1% 50 Gm) 0 applic TOP BID [facility] Last Admin: 11/08/17 18:00 Dose: 1 applic - Labs Labs: 11/09/17 04:20 11/09/17 04:20 PT 14.6 Seconds (9.8-13.1) H 11/09/17 04:20 INR 1.3 (0.9-1.2) H 11/09/17 04:20 APTT 30.4 Seconds (25.6-37.1) D 11/09/17 04:20 - Constitutional Appears: Non-toxic, No Acute Distress - Head Exam Head Exam: ATRAUMATIC, NORMOCEPHALIC - Eye Exam Eye Exam: EOMI, Normal appearance, PERRL - ENT Exam ENT Exam: Mucous Membranes Moist, Normal Oropharynx - Respiratory Exam Respiratory Exam: Clear to Ausculation Bilateral, NORMAL BREATHING PATTERN - Cardiovascular Exam Cardiovascular Exam: RRR, +S1, +S2 - GI/Abdominal Exam GI & Abdominal Exam: Soft, Normal Bowel Sounds - Extremities Exam Extremities Exam: absent: Joint Swelling, Pedal Edema - Neurological Exam Neurological Exam: Alert, Awake - Psychiatric Exam Psychiatric exam: Normal Affect, Normal Mood - Skin Skin Exam: Dry, Warm Assessment and Plan - Assessment and Plan (Free Text) Plan: 67 yo female with multiple medical problems with history of recent CVA right MCA distribution . She was initially admitted to [facility] and transferred to [facility] acute rehab for PT/OT. She is now [facility] ICU due to rectal bleed with hypovolemia and suspected sepsis. Her past medical history includes ESRD on dialysis, Type 2 DM, HTN, obesity, history of old CVA in 2011, atrial fibrillation, GI bleed with hemorrhagic shock just last week at [facility]. During that time the patient had an episode of cardiac arrest and respiratory failure and required intubation and hemodynamic monitoring in the ICU due to hypotensive shock from extravasation for AV Fistula. She developed ischemic colitis that was diagnosed by colonoscopy - showed colonic diverticulosis, internal hemorrhoids and diffuse severe inflammation with ulcerations in the entire colon, severe ischemic colitis mucosal ulcerations up to 40cm dinorah. On 11/04 she started to have worsening of rectal bleed , with blood clots and hypotension , fever Tmax 102 and minimal lower abdominal tenderness. Full septic panel was ordered , Cipro and Flagyl given , IVF ( bolus started ). Patient was then sent to [facility] ED then to ICU for admission due to sepsis and GI bleed. At present s/p 4 unit PRBC transfusion , off Levophed drip since 11/05. GI and surgery consulted . Pt continues to have rectal bleeding. 11/09 FOR OR TODAY 1. Hypovolemic shock most secondary to GI bleed and poss Sepsis s/p 4 unit PRBC transfusion - will transfuse 2 more units today ( total 6 units PRBC) Continue Rocephin and Flagyl Now off Levophed IVF hydration - gentle ID consulted Lactic acid normal, WBC ct now normal 2.Recurrent lower GI bleed due to Ischemic colitis continue ICU monitoring , IVF and transfusion PRBC Large amount of bleed overnight H/H monitoring GI and surgery consulted - discussed with Dr Blank Plan for Surgery TODAY and poss Colonoscopy Keep NPO Continue rocephin and Flagyl IV DDAVP given Transfused 1 unit Platelet, ^ PRBC FFP TRANSFUSED OVERNIGHT 3. Acute on chronic anemia GI blood loss on top of chronic kidney disease anemia 6 unit PRBC transfusion 4. History of recent cardiac arrest/respiratory arrest 5. ESRD on Dialysis MWF Nephro consulted continue HD as scheduled 6. 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 Paroxysmal Afib patient is in and out SR and afib on monitor, rate controlled continue to monitor closely no anticoag due to rectal bleed 8. DM Type II accuchecks and insulin coverage Pt off meds as she is NPO 9. DVT prophylaxis SCDs
[2017-11-09] MEDS ORDERED: Succinylcholine 200 mg/10 ml Inj IV ONE (08:10)
[2017-11-09] MEDS ORDERED: Bupivacaine 0.5% Inj(30mL) ONE (08:38)
[2017-11-09] MEDS ORDERED: Lidocaine 2% Inj (20ml) ONE (08:38)
[2017-11-09] MEDS ORDERED: Lidocaine 2% w Epi 1:200,000 Pf Inj ONE (09:00)
[2017-11-09] MEDS ORDERED: Iodoform 1/2inx15ft BOT EXT ONE (09:00)
[2017-11-09] MEDS ORDERED: Lactated Ringer's 500 ML IV ONE (09:27)
[2017-11-09 09:30] LABS: ABG ALLEN TEST YES; ARTERIAL BLOOD GAS HCO3 24.5 mmol/L (21-28); ARTERIAL BLOOD GAS O2 SAT 97.7 % (95-98); ARTERIAL BLOOD GAS PCO2 39 mm/Hg (35-45); ARTERIAL BLOOD GAS PO2 82 mm/Hg (80-100); ARTERIAL BLOOD GAS TCO2 25.4 mmol/L (22-28)
[2017-11-09 09:41] LABS: BANDS 18 % (0-2); EOSINOPHIL 4 % (0-7); LYMPHOCYTE 10 % (20-50); MONOCYTE 12 % (0-10); MYELOCYTE 1 % (0-0); NEUTROPHIL 55 % (42-75); TOTAL CELLS COUNTED 100
[2017-11-09 09:42] LABS: ANISOCYTOSIS SLIGHT; HYPOCHROMIC SLIGHT; OVALOCYTES SLIGHT; PLATELET ESTIMATE SLIGHTLY DECREASED (NORMAL); POIKILOCYTOSIS SLIGHT; SCHISTOCYTES SLIGHT
[2017-11-09] MEDS ORDERED: Lactated Ringer's 1,000 ML IV ONE ×3 (09:47→14:40)
[2017-11-09] MEDS ORDERED: metroNIDAZOLE 500mg/100ml NS IVPB ONE (10:00)
[2017-11-09] MEDS ORDERED: Sodium Chloride 0.9% 100 ML IV ONE (10:00)
--- NOTE | 2017-11-09 10:22 | CP.PCM.PN ---
Subjective - Date & Time of Evaluation Date of Evaluation: 11/09/17 Time of Evaluation: 08:00 - Subjective Subjective: Patient awake and conscious however she continued to have rectal bleeding Patient scheduled to go for surgery Vital sign noted to be stable at the present. Patient has multiple risk factors Objective - Vital Signs/Intake and Output Vital Signs (last 24 hours): Temp Pulse Resp BP Pulse Ox 98.5 F 63 16 109/58 L 100 11/09/17 06:41 11/09/17 06:41 11/09/17 06:41 11/09/17 06:41 11/09/17 06:41 Intake and Output: 11/09/17 11/09/17 06:59 18:59 Intake Total 1616 750 Balance 1616 750 - Medications Medications: Current Medications Epoetin Gonzalo (Procrit) 5,000 unit IV MWF [facility] Last Admin: 11/07/17 16:19 Dose: 5,000 unit Metronidazole (Flagyl 500mg/100ml Ns) 100 mls @ 100 mls/hr IVPB Q8 [facility] PRN Reason: Protocol Last Admin: 11/09/17 00:01 Dose: 100 mls/hr Ceftriaxone Sodium 1 gm/ (Sodium Chloride) 100 mls @ 100 mls/hr IVPB DAILY [facility] PRN Reason: Protocol Last Admin: 11/08/17 10:14 Dose: 100 mls/hr Sodium Chloride (Sodium Chloride 0.9%) 1,000 mls @ 30 mls/hr IV .Q24H [facility] Stop: 11/09/17 15:20 Last Admin: 11/08/17 15:44 Dose: 30 mls/hr Pantoprazole Sodium 40 mg/ (Sodium Chloride) 100 mls @ 20 mls/hr IVPB Q5H [facility] PRN Reason: 8 MG/HR Last Admin: 11/09/17 04:20 Dose: 20 mls/hr Insulin Human Regular (Humulin R) 0 units SC ACCU-CHECK [facility] PRN Reason: Protocol Last Admin: 11/09/17 06:17 Dose: Not Given Silver Sulfadiazine (Silvadene 1% 50 Gm) 0 applic TOP BID [facility] Last Admin: 11/08/17 18:00 Dose: 1 applic - Labs Labs: 11/09/17 04:20 11/09/17 04:20 PT 14.6 Seconds (9.8-13.1) H 11/09/17 04:20 INR 1.3 (0.9-1.2) H 11/09/17 04:20 APTT 30.4 Seconds (25.6-37.1) D 11/09/17 04:20 - Constitutional Appears: No Acute Distress - ENT Exam ENT Exam: Mucous Membranes Moist - Neck Exam Neck Exam: absent: Lymphadenopathy - Cardiovascular Exam Cardiovascular Exam: JVD. absent: Gallop - GI/Abdominal Exam GI & Abdominal Exam: Soft - Extremities Exam Extremities Exam: absent: Calf Tenderness - Back Exam Back Exam: absent: CVA tenderness (L) - Neurological Exam Neurological Exam: Alert - Skin Skin Exam: absent: Cyanosis Assessment and Plan (1) Colitis Status: Acute (2) ESRD (end stage renal disease) on dialysis Assessment & Plan: 67 yo female with multiple medical problems with history of new CVA with right MCA distribution that was initially admitted to [facility] acute rehab for PT/OT transferred and admitted to [facility] ICU for rectal bleed with hypovolemia and suspected sepsis. Her past medical history includes ESRD on dialysis, Type 2 DM, HTN, obesity, history of old CVA in 2011, atrial fibrillation, GI bleed with hemorrhagic shock just last week at [facility]. During that time the patient had an episode of cardiac arrest and respiratory failure in Patient with end stage renal disease on maintenance hemodialysis. Sunday. patient scheduled to have hemodialysis after she come back from surgery if she is stable enough. transfer to intensive care unit because of the active GI bleeding Anemia EPO on dialysis. active rectal bleeding ,patient was transfused ,multiple transfusion secondary to ischemic colitis which she has been diagnosed from previous hospitalization Other diagnosis patient admitted with acute CVA for rehabilitation. Status post cardiac arrest Status post massive bleeding from AV fistula. History of hyperphosphatemia History of secondary hyperparathyroidism Diabetes Mellitus Status: Acute (3) Gastrointestinal hemorrhage Status: Acute (4) History of cardiac arrest Status: Acute (5) Ischemic colitis Status: Acute (6) Shock Status: Acute
[2017-11-09] MEDS ORDERED: ePHEDrine 50 mg/ml Inj ONE (10:27)
[2017-11-09 10:53] LABS: ABG ALLEN TEST YES; ARTERIAL BLOOD GAS HCO3 23.4 mmol/L (21-28); ARTERIAL BLOOD GAS O2 SAT 98.9 % (95-98); ARTERIAL BLOOD GAS PCO2 35 mm/Hg (35-45); ARTERIAL BLOOD GAS PH 7.41 (7.35-7.45); ARTERIAL BLOOD GAS PO2 344 mm/Hg (80-100); ARTERIAL BLOOD GAS TCO2 23.3 mmol/L (22-28)
[2017-11-09] MEDS ORDERED: metroNIDAZOLE 500mg/100ml NS 100 ML IVPB ONE (11:23)
[2017-11-09] MEDS ORDERED: Esmolol 100 mg/10ml Inj IV ONE (11:28)
[2017-11-09] MEDS ORDERED: Liquid Adhesive TOP ONE (11:58)
--- NOTE | 2017-11-09 12:18 | PCM.SURG1 ---
Surgeon's Initial Post Op Note - Surgeon's Notes Surgeon: [place] Winder And Oiler: PGY4, Javier PGY3 Type of Anesthesia: General Endo, Block Regional Pre-Operative Diagnosis: Lower GI bleed Operative Findings: Ischemic colitis in descending and sigmoid colon, sloughing mucosa Post-Operative Diagnosis: Ischemic colitis, Lower GI bleed Operation Performed: 1. Colonoscopy. 2. L hemicolectomy. 3. End ileostomy Specimen/Specimens Removed: L colon Estimated Blood Loss: EBL {In ML}: 1,200 Blood Products Given: PRBC (1 unit) Drains Used: Fam Smith (RLQ) Post-Op Condition: Fair Date of Surgery/Procedure: 11/09/17 Time of Surgery/Procedure: 07:45
[2017-11-09] MEDS: HYDROmorphone 0.5 mg/0.5 ml ISec IVP PRN ×2 (13:10→13:39)
[2017-11-09] MEDS ORDERED: Lactated Ringer's 250 ML IV SCH (13:30)
[2017-11-09 14:41] LABS: MEAN CORPUSCULAR HEMOGLOBIN 28.8 pg (27.0-31.0); MEAN CORPUSCULAR HGB CONC 32.7 g/dL (33.0-37.0); RBC 4.51 Mil/uL (3.80-5.20); RED CELL DISTRIBUTION WIDTH 18.6 % (11.5-14.5)
[2017-11-09 14:45] LABS: WHITE BLOOD COUNT 10.8 K/uL (4.8-10.8)
[2017-11-09 14:47] LABS: CALCIUM 8.8 mg/dL (8.4-10.2)
[2017-11-09] MEDS: Silver Sulfadiazine 1% CREAM (50 gm) TOP SCH ×2 (15:42→17:17)
--- NOTE | 2017-11-09 17:39 | CP.CCUPN ---
CCU Subjective - Physician Review Subjective (Free Text): Had 2 red/maroon bloody BMs overnight, s/p additional 2 PRBCs and 2 FFP units overnight in anticipation of OR this AM. Underwent L hemicolectomy, extubated and back in ICU, sleeping, not in any distress, BP 118 systolic, 98% Satn on nasal cannula. EBL 1200 ml, with 2.9L crystalloid given intraop. Other VS and I/Os reviewed. ROS: No other pertinent negs or positives on 10+ system review PMSFH: All other Nursing and physician documentation reviewed to date; no new pertinent info noted relevant to current medical problems. EXAM- HEENT: no icterus, no gaze preference, pupils equal and reactive NECK: No JVD, supple, carotids equal upstroke bilat/no bruits, R IJV dialysis permacath- site clean, no redness / tenderness /discharge CHEST: decreased BS bases, no wheezes audible HEART: regular tachy, distant, S1S2, no rubs. ABD: soft, no distention, no tympany, + palp tenderness periumbilical area, BS hypoactive EXT: Mild R > L LE edema ( had R Fem TLC 2 weeks ago) No peripheral/ digital cyanosis, no calf tenderness or palpable cords, distal pulses intact and symmetrical. LUE AVF NEURO: left hemiparesis, moves R extremities spontaneously SKIN: no rashes, warm and dry. LABS: pre-op WBC= 4.7 HGB= 10.7, was 9.6 yesterday PLTs= 107K Yy=795 K= 3.5 JX=580 HCO3= 26 BUN/Cr= 22/4.5 BS= 76 INR= 1.3, PTT normal Fib= 422 IMPRESSION / MAJOR PROBLEMS NOW: 1. Recurrent LGIB 2 Ischemic colitis, s/p Colectomy 2. Hypovolemic Shock 2#1, r/o Severe Sepsis - bacteremia with Shock 3. Acute on Chronic Disease Anemia 4. h/o Resuscitation form Cardiac / Resp Arrest 5. ESRD on HD 6. 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 Scheduled for routine HD today ( most likely evening time post-op). Check post-op bloodwork. 2. Cautious IVF hydration, watch K levels ( no arrhythmias noted). 3. Check Lactate. 4. Empiric abx coverage; on Flagyl / Rocephin. CCU Objective - Vital Signs / Intake & Output Vital Signs (Last 4 hours): Vital Signs Temp Pulse Resp BP Pulse Ox 11/09/17 16:00 110 H 12 93/57 L 98 11/09/17 15:30 110 H 12 107/58 L 98 11/09/17 14:55 110 H 18 97/59 L 99 11/09/17 14:40 97.5 F L 110 H 18 104/56 L 98 11/09/17 14:25 110 H 18 102/59 L 98 11/09/17 14:10 97.6 F 111 H 18 111/61 98 11/09/17 13:55 112 H 18 114/64 97 11/09/17 13:40 97.9 F 111 H 18 132/69 97 Intake and Output (Last 8hrs): Intake & Output 11/09/17 11/09/17 11/09/17 06:59 14:59 22:59 Intake Total 887 3577 Output Total 350 100 Balance 887 3227 -100 Intake: IV 310 3300 Intake, Piggyback 240 Oral 0 Blood Product 337 277 Output: Drainage 300 100 Urine 50 Other: # Bowel Movements 1
[2017-11-09] MEDS: Lactated Ringer's 1,000 ML IV SCH (20:58)
[2017-11-10] MEDS: Insulin Regular 100 units/ml SC SCH ×4 (00:21→23:29)
[2017-11-10] MEDS: metroNIDAZOLE 500mg/100ml NS 100 ML IVPB SCH ×2 (00:22→08:45)
[2017-11-10] MEDS: Pantoprazole 40 MG in Sodium Chloride 0.9% 100 ML IVPB SCH ×3 (02:00→13:58)
[2017-11-10 06:38] LABS: HEMOGLOBIN 11.4 g/dL (12.0-16.0); MEAN CELL VOLUME 88.5 fl (81.0-99.0); MEAN CORPUSCULAR HEMOGLOBIN 28.5 pg (27.0-31.0); MEAN CORPUSCULAR HGB CONC 32.2 g/dL (33.0-37.0); RBC 4.01 Mil/uL (3.80-5.20); RED CELL DISTRIBUTION WIDTH 18.6 % (11.5-14.5); WHITE BLOOD COUNT 19.5 K/uL (4.8-10.8)
[2017-11-10 06:58] LABS: CALCIUM 9.1 mg/dL (8.4-10.2)
[2017-11-10] MEDS: Silver Sulfadiazine 1% CREAM (50 gm) TOP SCH ×2 (08:56→17:04)
--- NOTE | 2017-11-10 08:58 | CP.CCUPN ---
CCU Subjective - Physician Review Events Since Last Encounter (Free Text): 11/10/17 08:55 Had surgery yesterday, extubated yesterday, was hypotensive, not today, BP WNL, 134/67 no fever, pt alert and oriented, no sob, no pain, was not dialyzed yesterday due to low BP. Higher WBC count today, due to being pst-op, on Flagyl and ertapenum, electrolytes are stable , no sign of active GIB, on pantoprazol GGT. CCU Objective - Vital Signs / Intake & Output Vital Signs (Last 4 hours): Vital Signs Temp Pulse Resp BP Pulse Ox 11/10/17 07:38 97.8 F 104 H 16 125/77 100 11/10/17 06:00 100 H 12 104/59 L 98 Intake and Output (Last 8hrs): Intake & Output 11/09/17 11/10/17 11/10/17 22:59 06:59 14:59 Intake Total 650 625 Output Total 310 140 Balance 340 485 Intake: IV 450 525 Intake, Piggyback 200 100 Output: Drainage 290 140 Right Lower Abdomen 190 140 Urine 20 Urethral (Poe) 20 - Physical Exam Narrative Physical Exam (Free Text): 11/10/17 08:58 P/E Neck: No JVD Lungs: No ronci, crackles Abdomen: soft,s/p laparotomy, Ext: No edema Heart: no gallop Ext: +1 edema Head: Positive for: Atraumatic, Normocephalic Pupils: Positive for: PERRL Extroacular Muscles: Positive for: EOMI Conjunctiva: Positive for: Normal. Negative for: Injected, Icteric Mouth: Positive for: Moist Mucous Membranes Nose (Internal): Positive for: Normal Inspection Neck: Positive for: Normal Range of Motion, Trachea Midline. Negative for: Meningeal Signs, MIDLINE TENDERNESS, Paraspinal Tenderness, JVD, Lymphadenopathy , Bruit, Other Respiratory/Chest: Positive for: Clear to Auscultation, Good Air Exchange. Negative for: Respiratory Distress, Accessory Muscle Use Cardiovascular: Positive for: Regular Rate and Rhythm, Normal S1, S2, Peripheal Pulses Present. Negative for: Murmurs, Irregular Rhythm Upper Extremity: Positive for: Normal Inspection Lower Extremity: Positive for: Normal Inspection Neurological: Positive for: GCS=15, CN II-XII Intact, Speech Normal, Motor Func Grossly Intact, Normal Sensory Function - Medications Active Medications: Active Medications Generic Name Dose Route Start Last Admin Trade Name Freq PRN Reason Stop Dose Admin Epoetin Gonzalo 5,000 unit 11/07/17 09:00 11/07/17 16:19 Procrit IV 5,000 unit MWF ROBBI Administration Metronidazole 100 mls @ 100 mls/hr 11/04/17 17:00 11/10/17 00:22 Flagyl 500mg/100ml Ns IVPB 100 mls/hr Q8 ROBBI Administration Protocol Pantoprazole Sodium 40 mg/ 100 mls @ 20 mls/hr 11/08/17 19:15 11/10/17 02:00 Sodium Chloride IVPB 20 mls/hr Q5H ROBBI Administration 8 MG/HR Lactated Ringer's 1,000 mls @ 75 mls/hr 11/09/17 12:45 11/09/17 20:58 Lactated Ringer's IV 75 mls/hr .[id number] ROBBI Administration Lactated Ringer's 250 mls @ 999 mls/hr 11/09/17 13:30 Lactated Ringer's IV .Q16M ROBBI Ertapenem 0.5 gm/ Sodium 100 mls @ 100 mls/hr 11/10/17 09:00 Chloride IVPB DAILY [facility] Protocol Insulin Human Regular 0 units 11/04/17 17:00 11/10/17 07:13 Humulin R SC Not Given ACCU-CHECK [facility] Protocol Morphine Sulfate 8 mg 11/09/17 13:16 Morphine IVP Q4 PRN Pain, severe (8-10) Ondansetron HCl 4 mg 11/09/17 12:34 Zofran Inj IVP Q4 PRN Nausea/Vomiting Silver Sulfadiazine 0 applic 11/05/17 17:00 11/09/17 17:17 Silvadene 1% 50 Gm TOP 1 applic BID ROBBI Administration - Patient Studies Lab Studies: Microbiology Studies 11/04/17 11:09 Blood Culture - Final Blood NO GROWTH AFTER 5 DAYS Lab Studies 11/10/17 11/10/17 11/10/17 Range/Units 07:09 06:25 06:25 WBC 19.5 H D (4.8-10.8) K/uL RBC 4.01 (3.80-5.20) Mil/uL Hgb 11.4 L (12.0-16.0) g/dL Hct 35.5 (34.0-47.0) % MCV 88.5 (81.0-99.0) fl MCH 28.5 (27.0-31.0) pg MCHC 32.2 L (33.0-37.0) g/dL RDW 18.6 H (11.5-14.5) % Plt Count 126 L D (130-400) K/uL Neutrophils % (Manual) (42-75) % Band Neutrophils % (0-2) % Lymphocytes % (Manual) (20-50) % Monocytes % (Manual) (0-10) % Eosinophils % (Manual) (0-7) % Myelocytes % (0-0) % Platelet Estimate (NORMAL) Hypochromasia (manual) Poikilocytosis (manual Anisocytosis (manual) Ovalocytes Schistocytes pCO2 (35-45) mm/Hg pO2 (80-100) mm/Hg HCO3 (21-28) mmol/L ABG pH (7.35-7.45) ABG Total CO2 (22-28) mmol/L ABG O2 Saturation (95-98) % ABG Base Excess (-2.0-3.0) mmol/L Mariusz Test ABG Potassium (3.6-5.2) mmol/L A-a O2 Difference mm/Hg Sodium 138 (132-148) mmol/L Chloride 105 (98-107) mmol/L Glucose (65-105) mg/dL Lactate (0.7-2.1) mmol/L FiO2 % Potassium 4.1 (3.6-5.0) MMOL/L Carbon Dioxide 18 L (22-30) mmol/L Anion Gap 19 (10-20) BUN 27 H (7-17) mg/dl Creatinine 4.5 H (0.7-1.2) mg/dl Est GFR ( Amer) 12 Est GFR (Non-Af Amer) 10 POC Glucose (mg/dL) 123 H (65-110) mg/dL Random Glucose 112 H (65-105) mg/dL Calcium 9.1 (8.4-10.2) mg/dL Phosphorus (2.5-4.5) mg/dl Magnesium (1.6-2.3) MG/DL Arterial Blood Potassium (3.6-5.2) mmol/L Blood Type Antibody Screen Crossmatch BBK History Checked 11/09/17 11/09/17 11/09/17 Range/Units 21:39 18:22 15:39 WBC (4.8-10.8) K/uL RBC (3.80-5.20) Mil/uL Hgb (12.0-16.0) g/dL Hct (34.0-47.0) % MCV (81.0-99.0) fl MCH (27.0-31.0) pg MCHC (33.0-37.0) g/dL RDW (11.5-14.5) % Plt Count (130-400) K/uL Neutrophils % (Manual) (42-75) % Band Neutrophils % (0-2) % Lymphocytes % (Manual) (20-50) % Monocytes % (Manual) (0-10) % Eosinophils % (Manual) (0-7) % Myelocytes % (0-0) % Platelet Estimate (NORMAL) Hypochromasia (manual) Poikilocytosis (manual Anisocytosis (manual) Ovalocytes Schistocytes pCO2 (35-45) mm/Hg pO2 (80-100) mm/Hg HCO3 (21-28) mmol/L ABG pH (7.35-7.45) ABG Total CO2 (22-28) mmol/L ABG O2 Saturation (95-98) % ABG Base Excess (-2.0-3.0) mmol/L Mariusz Test ABG Potassium (3.6-5.2) mmol/L A-a O2 Difference mm/Hg Sodium (132-148) mmol/L Chloride (98-107) mmol/L Glucose (65-105) mg/dL Lactate (0.7-2.1) mmol/L FiO2 % Potassium (3.6-5.0) MMOL/L Carbon Dioxide (22-30) mmol/L Anion Gap (10-20) BUN (7-17) mg/dl Creatinine (0.7-1.2) mg/dl Est GFR ( Amer) Est GFR (Non-Af Amer) POC Glucose (mg/dL) 107 123 H 96 (65-110) mg/dL Random Glucose (65-105) mg/dL Calcium (8.4-10.2) mg/dL Phosphorus (2.5-4.5) mg/dl Magnesium (1.6-2.3) MG/DL Arterial Blood Potassium (3.6-5.2) mmol/L Blood Type Antibody Screen Crossmatch BBK History Checked 11/09/17 11/09/17 11/09/17 Range/Units 14:15 14:15 12:52 WBC 10.8 D (4.8-10.8) K/uL RBC 4.51 (3.80-5.20) Mil/uL Hgb 13.0 D (12.0-16.0) g/dL Hct 39.7 (34.0-47.0) % MCV 88.0 (81.0-99.0) fl MCH 28.8 (27.0-31.0) pg MCHC 32.7 L (33.0-37.0) g/dL RDW 18.6 H (11.5-14.5) % Plt Count 72 L D (130-400) K/uL Neutrophils % (Manual) (42-75) % Band Neutrophils % (0-2) % Lymphocytes % (Manual) (20-50) % Monocytes % (Manual) (0-10) % Eosinophils % (Manual) (0-7) % Myelocytes % (0-0) % Platelet Estimate (NORMAL) Hypochromasia (manual) Poikilocytosis (manual Anisocytosis (manual) Ovalocytes Schistocytes pCO2 (35-45) mm/Hg pO2 (80-100) mm/Hg HCO3 (21-28) mmol/L ABG pH (7.35-7.45) ABG Total CO2 (22-28) mmol/L ABG O2 Saturation (95-98) % ABG Base Excess (-2.0-3.0) mmol/L Mariusz Test ABG Potassium (3.6-5.2) mmol/L A-a O2 Difference mm/Hg Sodium 137 (132-148) mmol/L Chloride 105 (98-107) mmol/L Glucose (65-105) mg/dL Lactate (0.7-2.1) mmol/L FiO2 % Potassium 3.7 (3.6-5.0) MMOL/L Carbon Dioxide 20 L (22-30) mmol/L Anion Gap 16 (10-20) BUN 21 H (7-17) mg/dl Creatinine 3.7 H (0.7-1.2) mg/dl Est GFR ( Amer) 15 Est GFR (Non-Af Amer) 12 POC Glucose (mg/dL) 94 (65-110) mg/dL Random Glucose 87 (65-105) mg/dL Calcium 8.8 (8.4-10.2) mg/dL Phosphorus 4.4 (2.5-4.5) mg/dl Magnesium 1.6 (1.6-2.3) MG/DL Arterial Blood Potassium (3.6-5.2) mmol/L Blood Type Antibody Screen Crossmatch BBK History Checked 11/09/17 11/09/17 11/09/17 Range/Units 10:47 09:06 04:20 WBC (4.8-10.8) K/uL RBC (3.80-5.20) Mil/uL Hgb (12.0-16.0) g/dL Hct (34.0-47.0) % MCV (81.0-99.0) fl MCH (27.0-31.0) pg MCHC (33.0-37.0) g/dL RDW (11.5-14.5) % Plt Count (130-400) K/uL Neutrophils % (Manual) 55 (42-75) % Band Neutrophils % 18 H* (0-2) % Lymphocytes % (Manual) 10 L (20-50) % Monocytes % (Manual) 12 H (0-10) % Eosinophils % (Manual) 4 (0-7) % Myelocytes % 1 H (0-0) % Platelet Estimate Slightly decreased L (NORMAL) Hypochromasia (manual) Slight Poikilocytosis (manual Slight Anisocytosis (manual) Slight Ovalocytes Slight Schistocytes Slight pCO2 35 39 (35-45) mm/Hg pO2 344 H 82 (80-100) mm/Hg HCO3 23.4 24.5 (21-28) mmol/L ABG pH 7.41 7.40 (7.35-7.45) ABG Total CO2 23.3 25.4 (22-28) mmol/L ABG O2 Saturation 98.9 H 97.7 (95-98) % ABG Base Excess -2.0 -0.5 (-2.0-3.0) mmol/L Mariusz Test Yes Yes ABG Potassium 3.9 3.5 L (3.6-5.2) mmol/L A-a O2 Difference -238.0 19.0 mm/Hg Sodium 132.0 135.0 (132-148) mmol/L Chloride 110.0 H 108.0 H (98-107) mmol/L Glucose 92 87 (65-105) mg/dL Lactate 0.9 0.7 (0.7-2.1) mmol/L FiO2 21.0 21.0 % Potassium (3.6-5.0) MMOL/L Carbon Dioxide (22-30) mmol/L Anion Gap (10-20) BUN (7-17) mg/dl Creatinine (0.7-1.2) mg/dl Est GFR ( Amer) Est GFR (Non-Af Amer) POC Glucose (mg/dL) (65-110) mg/dL Random Glucose (65-105) mg/dL Calcium (8.4-10.2) mg/dL Phosphorus (2.5-4.5) mg/dl Magnesium (1.6-2.3) MG/DL Arterial Blood Potassium 3.9 3.5 L (3.6-5.2) mmol/L Blood Type Antibody Screen Crossmatch BBK History Checked 11/07/17 Range/Units 16:05 WBC (4.8-10.8) K/uL RBC (3.80-5.20) Mil/uL Hgb (12.0-16.0) g/dL Hct (34.0-47.0) % MCV (81.0-99.0) fl MCH (27.0-31.0) pg MCHC (33.0-37.0) g/dL RDW (11.5-14.5) % Plt Count (130-400) K/uL Neutrophils % (Manual) (42-75) % Band Neutrophils % (0-2) % Lymphocytes % (Manual) (20-50) % Monocytes % (Manual) (0-10) % Eosinophils % (Manual) (0-7) % Myelocytes % (0-0) % Platelet Estimate (NORMAL) Hypochromasia (manual) Poikilocytosis (manual Anisocytosis (manual) Ovalocytes Schistocytes pCO2 (35-45) mm/Hg pO2 (80-100) mm/Hg HCO3 (21-28) mmol/L ABG pH (7.35-7.45) ABG Total CO2 (22-28) mmol/L ABG O2 Saturation (95-98) % ABG Base Excess (-2.0-3.0) mmol/L Mariusz Test ABG Potassium (3.6-5.2) mmol/L A-a O2 Difference mm/Hg Sodium (132-148) mmol/L Chloride (98-107) mmol/L Glucose (65-105) mg/dL Lactate (0.7-2.1) mmol/L FiO2 % Potassium (3.6-5.0) MMOL/L Carbon Dioxide (22-30) mmol/L Anion Gap (10-20) BUN (7-17) mg/dl Creatinine (0.7-1.2) mg/dl Est GFR ( Amer) Est GFR (Non-Af Amer) POC Glucose (mg/dL) (65-110) mg/dL Random Glucose (65-105) mg/dL Calcium (8.4-10.2) mg/dL Phosphorus (2.5-4.5) mg/dl Magnesium (1.6-2.3) MG/DL Arterial Blood Potassium (3.6-5.2) mmol/L Blood Type O POSITIVE Antibody Screen Negative Crossmatch See Detail BBK History Checked Patient has bt Laboratory Results - last 24 hr 11/07/17 11/09/17 11/09/17 16:05 04:20 09:06 WBC RBC Hgb Hct MCV MCH MCHC RDW Plt Count Neutrophils % (Manual) 55 Band Neutrophils % 18 H* Lymphocytes % (Manual) 10 L Monocytes % (Manual) 12 H Eosinophils % (Manual) 4 Myelocytes % 1 H Platelet Estimate Slightly decreased L Hypochromasia (manual) Slight Poikilocytosis (manual Slight Anisocytosis (manual) Slight Ovalocytes Slight Schistocytes Slight pCO2 39 pO2 82 HCO3 24.5 ABG pH 7.40 ABG Total CO2 25.4 ABG O2 Saturation 97.7 ABG Base Excess -0.5 Mariusz Test Yes ABG Potassium 3.5 L A-a O2 Difference 19.0 Sodium 135.0 Chloride 108.0 H Glucose 87 Lactate 0.7 FiO2 21.0 Potassium Carbon Dioxide Anion Gap BUN Creatinine Est GFR ( Amer) Est GFR (Non-Af Amer) POC Glucose (mg/dL) Random Glucose Calcium Phosphorus Magnesium Arterial Blood Potassium 3.5 L Blood Type O POSITIVE Antibody Screen Negative Crossmatch See Detail BBK History Checked Patient has bt 11/09/17 11/09/17 11/09/17 10:47 12:52 14:15 WBC 10.8 D RBC 4.51 Hgb 13.0 D Hct 39.7 MCV 88.0 MCH 28.8 MCHC 32.7 L RDW 18.6 H Plt Count 72 L D Neutrophils % (Manual) Band Neutrophils % Lymphocytes % (Manual) Monocytes % (Manual) Eosinophils % (Manual) Myelocytes % Platelet Estimate Hypochromasia (manual) Poikilocytosis (manual Anisocytosis (manual) Ovalocytes Schistocytes pCO2 35 pO2 344 H HCO3 23.4 ABG pH 7.41 ABG Total CO2 23.3 ABG O2 Saturation 98.9 H ABG Base Excess -2.0 Mariusz Test Yes ABG Potassium 3.9 A-a O2 Difference -238.0 Sodium 132.0 Chloride 110.0 H Glucose 92 Lactate 0.9 FiO2 21.0 Potassium Carbon Dioxide Anion Gap BUN Creatinine Est GFR ( Amer) Est GFR (Non-Af Amer) POC Glucose (mg/dL) 94 Random Glucose Calcium Phosphorus Magnesium Arterial Blood Potassium 3.9 Blood Type Antibody Screen Crossmatch BBK History Checked 11/09/17 11/09/17 11/09/17 14:15 15:39 18:22 WBC RBC Hgb Hct MCV MCH MCHC RDW Plt Count Neutrophils % (Manual) Band Neutrophils % Lymphocytes % (Manual) Monocytes % (Manual) Eosinophils % (Manual) Myelocytes % Platelet Estimate Hypochromasia (manual) Poikilocytosis (manual Anisocytosis (manual) Ovalocytes Schistocytes pCO2 pO2 HCO3 ABG pH ABG Total CO2 ABG O2 Saturation ABG Base Excess Mariusz Test ABG Potassium A-a O2 Difference Sodium 137 Chloride 105 Glucose Lactate FiO2 Potassium 3.7 Carbon Dioxide 20 L Anion Gap 16 BUN 21 H Creatinine 3.7 H Est GFR ( Amer) 15 Est GFR (Non-Af Amer) 12 POC Glucose (mg/dL) 96 123 H Random Glucose 87 Calcium 8.8 Phosphorus 4.4 Magnesium 1.6 Arterial Blood Potassium Blood Type Antibody Screen Crossmatch BBK History Checked 11/09/17 11/10/17 11/10/17 21:39 06:25 06:25 WBC 19.5 H D RBC 4.01 Hgb 11.4 L Hct 35.5 MCV 88.5 MCH 28.5 MCHC 32.2 L RDW 18.6 H Plt Count 126 L D Neutrophils % (Manual) Band Neutrophils % Lymphocytes % (Manual) Monocytes % (Manual) Eosinophils % (Manual) Myelocytes % Platelet Estimate Hypochromasia (manual) Poikilocytosis (manual Anisocytosis (manual) Ovalocytes Schistocytes pCO2 pO2 HCO3 ABG pH ABG Total CO2 ABG O2 Saturation ABG Base Excess Mariusz Test ABG Potassium A-a O2 Difference Sodium 138 Chloride 105 Glucose Lactate FiO2 Potassium 4.1 Carbon Dioxide 18 L Anion Gap 19 BUN 27 H Creatinine 4.5 H Est GFR ( Amer) 12 Est GFR (Non-Af Amer) 10 POC Glucose (mg/dL) 107 Random Glucose 112 H Calcium 9.1 Phosphorus Magnesium Arterial Blood Potassium Blood Type Antibody Screen Crossmatch BBK History Checked 11/10/17 07:09 WBC RBC Hgb Hct MCV MCH MCHC RDW Plt Count Neutrophils % (Manual) Band Neutrophils % Lymphocytes % (Manual) Monocytes % (Manual) Eosinophils % (Manual) Myelocytes % Platelet Estimate Hypochromasia (manual) Poikilocytosis (manual Anisocytosis (manual) Ovalocytes Schistocytes pCO2 pO2 HCO3 ABG pH ABG Total CO2 ABG O2 Saturation ABG Base Excess Mariusz Test ABG Potassium A-a O2 Difference Sodium Chloride Glucose Lactate FiO2 Potassium Carbon Dioxide Anion Gap BUN Creatinine Est GFR ( Amer) Est GFR (Non-Af Amer) POC Glucose (mg/dL) 123 H Random Glucose Calcium Phosphorus Magnesium Arterial Blood Potassium Blood Type Antibody Screen Crossmatch BBK History Checked Fingerstick Blood Sugar Results: 123 Critical Care Progress Note - Nutrition Nutrition: Nutrition Category Date Time Status NPO Diet [DIET] Diets 11/09/17 Dinner Active Assessment/Plan - Assessment and Plan (Free Text) Assessment: 1. Hypovolemic shock . GI bleed and poss Sepsis Improved, on no pressors now Received 6 unit PRBC transfusion - Hb stable and no signs of bleeding now, had surgery yesterday On ertapenum and Flagyl Off Levophed IVF hydration - gentle, will continue CXR today to r/o pulm congestion ID consulted Lactic acid level not important, pt has ESRD and on RL , increased WBCs, due to surgery. 2.Recurrent lower GI bleed due to Ischemic colitis continue ICU monitoring , IVF and transfusion PRBC H/H monitoring : stable s/p surgery POD#1 Keep NPO 3. Acute on chronic anemia GI blood loss on top of chronic kidney disease anemia 6 unit PRBC transfusion Hb stable now 4. History of recent cardiac arrest/respiratory arrest 5. ESRD on Dialysis MWF Nephrology following HD was held yesterday due to surgery low BP and stable electrolytes. continue HD as scheduled , will be today 6. 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 Paroxysmal Afib Rate controlled no anticoag due to rectal bleed 8. DM Type II accuchecks and insulin coverage Pt off meds as she is NPO 9. DVT prophylaxis SCDs
--- NOTE | 2017-11-10 09:12 | CP.PCM.PN ---
Subjective - Date & Time of Evaluation Date of Evaluation: 11/10/17 Time of Evaluation: 09:05 - Subjective Subjective: SURGERY NOTE FOR DR. TILLEY 67F seen and examined at bedside. No acute events overnight Patient state post op pain is controlled, she denies nausea/vomiting, denies fevers, chills. Stoma is pink, with sero sanguinous output. Objective - Vital Signs/Intake and Output Vital Signs (last 24 hours): Temp Pulse Resp BP Pulse Ox 97.8 F 104 H 16 125/77 100 11/10/17 07:38 11/10/17 07:38 11/10/17 07:38 11/10/17 07:38 11/10/17 07:38 Intake and Output: 11/10/17 11/10/17 06:59 18:59 Intake Total 775 Output Total 200 Balance 575 - Medications Medications: Current Medications Epoetin Gonzalo (Procrit) 5,000 unit IV MWF [facility] Last Admin: 11/07/17 16:19 Dose: 5,000 unit Metronidazole (Flagyl 500mg/100ml Ns) 100 mls @ 100 mls/hr IVPB Q8 ROBBI PRN Reason: Protocol Last Admin: 11/10/17 08:45 Dose: 100 mls/hr Pantoprazole Sodium 40 mg/ (Sodium Chloride) 100 mls @ 20 mls/hr IVPB Q5H ROBBI PRN Reason: 8 MG/HR Last Admin: 11/10/17 08:49 Dose: 20 mls/hr Lactated Ringer's (Lactated Ringer's) 1,000 mls @ 75 mls/hr IV .[id number] [facility] Last Admin: 11/09/17 20:58 Dose: 75 mls/hr Lactated Ringer's (Lactated Ringer's) 250 mls @ 999 mls/hr IV .Q16M [facility] Ertapenem 0.5 gm/ Sodium (Chloride) 100 mls @ 100 mls/hr IVPB DAILY [facility] PRN Reason: Protocol Last Admin: 11/10/17 08:46 Dose: 100 mls/hr Insulin Human Regular (Humulin R) 0 units SC ACCU-CHECK ROBBI PRN Reason: Protocol Last Admin: 11/10/17 07:13 Dose: Not Given Morphine Sulfate (Morphine) 8 mg IVP Q4 PRN PRN Reason: Pain, severe (8-10) Ondansetron HCl (Zofran Inj) 4 mg IVP Q4 PRN PRN Reason: Nausea/Vomiting Silver Sulfadiazine (Silvadene 1% 50 Gm) 0 applic TOP BID ROBBI Last Admin: 11/10/17 08:56 Dose: 1 applic - Labs Labs: 11/10/17 06:25 11/10/17 06:25 PT 14.6 Seconds (9.8-13.1) H 11/09/17 04:20 INR 1.3 (0.9-1.2) H 11/09/17 04:20 APTT 30.4 Seconds (25.6-37.1) D 11/09/17 04:20 - Constitutional Appears: Non-toxic, No Acute Distress - Respiratory Exam Respiratory Exam: Clear to Ausculation Bilateral, NORMAL BREATHING PATTERN - Cardiovascular Exam Cardiovascular Exam: REGULAR RHYTHM, +S1, +S2 - GI/Abdominal Exam GI & Abdominal Exam: Soft, Tenderness. absent: Distended, Firm, Guarding, Rigid , Rebound Additional comments: stoma is pink and patent Drain 200cc/12hr serosanguinous output Dressing is stained and intact - Extremities Exam Extremities Exam: absent: Pedal Edema, Tenderness - Neurological Exam Neurological Exam: Alert, Awake - Skin Skin Exam: Dry, Intact, Normal Color, Warm Assessment and Plan - Assessment and Plan (Free Text) Assessment: 67F with ischemic colitis, s/p partial colectomy with stoma formation POD1 Plan: NPO, IVF Pain control, Nausea control Continue Antibiotics Await ostomy output Monitor drain output Monitor labs Dressing change tomm Further recs discuss with Dr. [place], PGY2
--- NOTE | 2017-11-10 09:40 | CP.PCM.PN ---
Subjective - Date & Time of Evaluation Date of Evaluation: 11/10/17 Time of Evaluation: 09:30 - Subjective Subjective: Patient seen and examined bedside. lying in bed in NAD. pain is well controlled. No acute issues overnight Hemodynamically stable, afebrile BP 125/77 HR 104 WBC trending up 19 k Hgbn 11.4 INR 1.3 I/O 4852/800 ilioostomy site apperas clean and pink HD was held yesterday due to low BP .For HD today Objective - Vital Signs/Intake and Output Vital Signs (last 24 hours): Temp Pulse Resp BP Pulse Ox 97.8 F 104 H 16 125/77 100 11/10/17 07:38 11/10/17 07:38 11/10/17 07:38 11/10/17 07:38 11/10/17 07:38 Intake and Output: 11/10/17 11/10/17 06:59 18:59 Intake Total 775 Output Total 200 Balance 575 - Medications Medications: Current Medications Epoetin Gonzalo (Procrit) 5,000 unit IV MWF [facility] Last Admin: 11/07/17 16:19 Dose: 5,000 unit Metronidazole (Flagyl 500mg/100ml Ns) 100 mls @ 100 mls/hr IVPB Q8 [facility]BI PRN Reason: Protocol Last Admin: 11/10/17 08:45 Dose: 100 mls/hr Pantoprazole Sodium 40 mg/ (Sodium Chloride) 100 mls @ 20 mls/hr IVPB Q5H [facility]BI PRN Reason: 8 MG/HR Last Admin: 11/10/17 08:49 Dose: 20 mls/hr Lactated Ringer's (Lactated Ringer's) 1,000 mls @ 75 mls/hr IV .[id number] [facility] Last Admin: 11/09/17 20:58 Dose: 75 mls/hr Lactated Ringer's (Lactated Ringer's) 250 mls @ 999 mls/hr IV .Q16M [facility] Ertapenem 0.5 gm/ Sodium (Chloride) 100 mls @ 100 mls/hr IVPB DAILY [facility]BI PRN Reason: Protocol Last Admin: 11/10/17 08:46 Dose: 100 mls/hr Insulin Human Regular (Humulin R) 0 units SC ACCU-CHECK [facility] PRN Reason: Protocol Last Admin: 11/10/17 07:13 Dose: Not Given Morphine Sulfate (Morphine) 8 mg IVP Q4 PRN PRN Reason: Pain, severe (8-10) Ondansetron HCl (Zofran Inj) 4 mg IVP Q4 PRN PRN Reason: Nausea/Vomiting Silver Sulfadiazine (Silvadene 1% 50 Gm) 0 applic TOP BID [facility]BI Last Admin: 11/10/17 08:56 Dose: 1 applic - Labs Labs: 11/10/17 06:25 11/10/17 06:25 PT 14.6 Seconds (9.8-13.1) H 11/09/17 04:20 INR 1.3 (0.9-1.2) H 11/09/17 04:20 APTT 30.4 Seconds (25.6-37.1) D 11/09/17 04:20 - Constitutional Appears: Non-toxic, No Acute Distress, Chronically Ill - Head Exam Head Exam: ATRAUMATIC, NORMOCEPHALIC - Eye Exam Eye Exam: EOMI, Normal appearance, PERRL Pupil Exam: NORMAL ACCOMODATION - ENT Exam ENT Exam: Mucous Membranes Dry, Normal Exam - Respiratory Exam Respiratory Exam: Clear to Ausculation Bilateral, NORMAL BREATHING PATTERN. absent: Rales, Rhonchi, Wheezes - Cardiovascular Exam Cardiovascular Exam: Tachycardia, REGULAR RHYTHM. absent: JVD - GI/Abdominal Exam GI & Abdominal Exam: Soft, Hypoactive Bowel Sounds. 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 no edema to LE right upper chest HD catheter - Neurological Exam Neurological Exam: Alert, Awake, CN II-XII Intact, Oriented x3 - Psychiatric Exam Psychiatric exam: Normal Affect - Skin Skin Exam: Dry, Warm Assessment and Plan - Assessment and Plan (Free Text) Assessment: 67 yo female with multiple medical problems like ESRD on dialysis, Type 2 DM, HTN, obesity, history of old CVA in 2012, atrial fibrillation,with history of recent CVA right MCA distribution was initially admitted to [facility] where she developed GI bleed with hemorrhagic shock and severe ischemic colitis diagnosed with colonoscopy . She also had a cardiac arrest and respiratory failure requiring intubation . After improving she was transferred to acute rehab for physical therapy where she continued to have some episodes of GI bleed. On 11/04 she started to have worsening of rectal bleed , with blood clots per rectum hypotension , fever Tmax 102 and some lower abdominal tenderness. Full septic panel was ordered , Cipro and Flagyl given , IVF ( bolus started ). Patient was then admitted to ICU with diagnosis of hypovolemic shock and GI bleed and rule out sepsis . her colonoscopy perforemed at [facility] had shown : diffuse severe inflammation with ulcerations in the entire colon, severe ischemic colitis mucosal ulcerations up to 40cm dinorah. GI ,surgery and ID consulted At present s/p 6 unit PRBC transfusion , off Levophed drip and s/p hemicolectomy with iliostomy 1. Hypovolemic shock most secondary to GI bleed off Levophed drip since 11/05 s/p 6 unit PRBC transfusion Continue ertapenem Continue IVF hydration ID consulted 2.Recurrent lower GI bleed due to Ischemic colitis s/p left colon resection with iliostomy / pain is well controlled s/p 6 unit PRBC transfusion . Received DDAVP and FFP keep NPO , ice chips stoma appears well . Surgery following Start out of bed to chair continue IV antibiotics, pain management 3. Acute on chronic anemia GI blood loss on top of chronic kidney disease anemia s/p 6 unit PRBC transfusion continue epopoetin 4. History of recent cardiac arrest/respiratory arrest 5. ESRD on Dialysis MWF Nephro consulted continue HD as scheduled could not gert HD yesterday due to low BP For HD today 6. 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 Paroxysmal Afib patient is in and out SR and afib on monitor, rate controlled continue to monitor closely no anticoag due to rectal bleed 8. DM Type II accuchecks and insulin coverage Pt off meds as she is NPO 9. DVT prophylaxis SCDs
[2017-11-10] MEDS ORDERED: Albumin Human 25% (12.5 gm/50 ml) IV ONE (11:01)
--- NOTE | 2017-11-10 11:04 | CP.PCM.PN ---
Subjective - Date & Time of Evaluation Date of Evaluation: 11/10/17 Time of Evaluation: 13:57 - Subjective Subjective: ID Note- Pt. seen and examined today in ICU. s/p partial colectomy yesterday as per surgical team. getting HD now. Objective - Vital Signs/Intake and Output Vital Signs (last 24 hours): Temp Pulse Resp BP Pulse Ox 97.8 F 104 H 16 125/77 100 11/10/17 07:38 11/10/17 07:38 11/10/17 07:38 11/10/17 07:38 11/10/17 07:38 Intake and Output: 11/10/17 11/10/17 06:59 18:59 Intake Total 775 Output Total 200 Balance 575 - Medications Medications: Current Medications Epoetin Gonzalo (Procrit) 5,000 unit IV MWF [facility], [facility] Last Admin: 11/07/17 16:19 Dose: 5,000 unit Metronidazole (Flagyl 500mg/100ml Ns) 100 mls @ 100 mls/hr IVPB Q8 [facility] PRN Reason: Protocol Last Admin: 11/10/17 08:45 Dose: 100 mls/hr Pantoprazole Sodium 40 mg/ (Sodium Chloride) 100 mls @ 20 mls/hr IVPB Q5H [facility] PRN Reason: 8 MG/HR Last Admin: 11/10/17 08:49 Dose: 20 mls/hr Lactated Ringer's (Lactated Ringer's) 1,000 mls @ 75 mls/hr IV .[id number] [facility] Last Admin: 11/09/17 20:58 Dose: 75 mls/hr Lactated Ringer's (Lactated Ringer's) 250 mls @ 999 mls/hr IV .Q16M [facility] Ertapenem 0.5 gm/ Sodium (Chloride) 100 mls @ 100 mls/hr IVPB DAILY [facility] PRN Reason: Protocol Last Admin: 11/10/17 08:46 Dose: 100 mls/hr Insulin Human Regular (Humulin R) 0 units SC ACCU-CHECK [facility] PRN Reason: Protocol Last Admin: 11/10/17 07:13 Dose: Not Given Morphine Sulfate (Morphine) 8 mg IVP Q4 PRN PRN Reason: Pain, severe (8-10) Ondansetron HCl (Zofran Inj) 4 mg IVP Q4 PRN PRN Reason: Nausea/Vomiting Silver Sulfadiazine (Silvadene 1% 50 Gm) 0 applic TOP BID ROBBI Last Admin: 11/10/17 08:56 Dose: 1 applic - Labs Labs: - Additional Findings Additional findings: - Constitutional Appears: Non-toxic, No Acute Distress, Chronically Ill - Head Exam Head Exam: ATRAUMATIC, NORMOCEPHALIC - Eye Exam Eye Exam: EOMI, Normal appearance, PERRL - ENT Exam ENT Exam: Mucous Membranes Dry, Normal Exam - Respiratory Exam Respiratory Exam: Clear to Ausculation Bilateral, NORMAL BREATHING PATTERN. - Cardiovascular Exam Cardiovascular Exam: S1S2 RRR - GI/Abdominal Exam GI & Abdominal Exam: Soft, Hypoactive Bowel Sounds. absent: Distended Additional comments: KITA drain to right mid abdomen Midline surgical incision with dressings in place clean and intact iliostomy to left mid abdomen appears pink and clean Laboratory Results - last 72 hr 11/07/17 11/07/17 11/07/17 14:10 16:05 16:05 WBC 4.4 L RBC 4.03 Hgb 11.9 L Hct 36.6 MCV 90.7 MCH 29.4 MCHC 32.5 L RDW 16.5 H Plt Count 115 L MPV Neut % (Auto) Lymph % (Auto) [place] % (Auto) Eos % (Auto) Baso % (Auto) Neut # (Auto) Lymph # (Auto) [place] # (Auto) Eos # (Auto) Baso # (Auto) Neutrophils % (Manual) Band Neutrophils % Lymphocytes % (Manual) Monocytes % (Manual) Eosinophils % (Manual) Myelocytes % Platelet Estimate Hypochromasia (manual) Poikilocytosis (manual Anisocytosis (manual) Ovalocytes Schistocytes PT INR APTT Fibrinogen pCO2 pO2 HCO3 ABG pH ABG Total CO2 ABG O2 Saturation ABG Base Excess Mariusz Test ABG Potassium A-a O2 Difference Glucose Lactate FiO2 Sodium Potassium Chloride Carbon Dioxide Anion Gap BUN Creatinine Est GFR ( Amer) Est GFR (Non-Af Amer) POC Glucose (mg/dL) Random Glucose Lactic Acid 0.8 Calcium Phosphorus Magnesium Total Bilirubin AST ALT Alkaline Phosphatase Total Protein Albumin Globulin Albumin/Globulin Ratio Procalcitonin 2.63 H Arterial Blood Potassium C. difficile Ag & Toxin Blood Type Antibody Screen Crossmatch BBK History Checked 11/07/17 11/07/17 11/07/17 16:05 16:05 16:40 WBC 5.1 RBC 4.16 Hgb 12.1 Hct 37.5 MCV 90.2 MCH 29.1 MCHC 32.3 L RDW 16.3 H Plt Count 110 L MPV Neut % (Auto) Lymph % (Auto) [place] % (Auto) Eos % (Auto) Baso % (Auto) Neut # (Auto) Lymph # (Auto) [place] # (Auto) Eos # (Auto) Baso # (Auto) Neutrophils % (Manual) Band Neutrophils % Lymphocytes % (Manual) Monocytes % (Manual) Eosinophils % (Manual) Myelocytes % Platelet Estimate Hypochromasia (manual) Poikilocytosis (manual Anisocytosis (manual) Ovalocytes Schistocytes PT INR APTT Fibrinogen pCO2 pO2 HCO3 ABG pH ABG Total CO2 ABG O2 Saturation ABG Base Excess Mariusz Test ABG Potassium A-a O2 Difference Glucose Lactate FiO2 Sodium Potassium Chloride Carbon Dioxide Anion Gap BUN Creatinine Est GFR ( Amer) Est GFR (Non-Af Amer) POC Glucose (mg/dL) 105 Random Glucose Lactic Acid Calcium Phosphorus Magnesium Total Bilirubin AST ALT Alkaline Phosphatase Total Protein Albumin Globulin Albumin/Globulin Ratio Procalcitonin Arterial Blood Potassium C. difficile Ag & Toxin Blood Type O POSITIVE Antibody Screen Negative Crossmatch See Detail BBK History Checked Patient has bt 11/07/17 11/07/17 11/08/17 18:15 22:35 04:20 WBC 5.7 RBC 3.25 L Hgb 9.6 L D Hct 29.2 L MCV 89.9 MCH 29.6 MCHC 33.0 RDW 15.8 H Plt Count 116 L MPV Neut % (Auto) Lymph % (Auto) [place] % (Auto) Eos % (Auto) Baso % (Auto) Neut # (Auto) Lymph # (Auto) [place] # (Auto) Eos # (Auto) Baso # (Auto) Neutrophils % (Manual) Band Neutrophils % Lymphocytes % (Manual) Monocytes % (Manual) Eosinophils % (Manual) Myelocytes % Platelet Estimate Hypochromasia (manual) Poikilocytosis (manual Anisocytosis (manual) Ovalocytes Schistocytes PT INR APTT Fibrinogen pCO2 pO2 HCO3 ABG pH ABG Total CO2 ABG O2 Saturation ABG Base Excess Mariusz Test ABG Potassium A-a O2 Difference Glucose Lactate FiO2 Sodium Potassium Chloride Carbon Dioxide Anion Gap BUN Creatinine Est GFR ( Amer) Est GFR (Non-Af Amer) POC Glucose (mg/dL) 92 Random Glucose Lactic Acid Calcium Phosphorus Magnesium Total Bilirubin AST ALT Alkaline Phosphatase Total Protein Albumin Globulin Albumin/Globulin Ratio Procalcitonin Arterial Blood Potassium C. difficile Ag & Toxin Negative Blood Type Antibody Screen Crossmatch BBK History Checked 11/08/17 11/08/17 11/08/17 04:20 04:20 05:12 WBC RBC Hgb Hct MCV MCH MCHC RDW Plt Count MPV Neut % (Auto) Lymph % (Auto) [place] % (Auto) Eos % (Auto) Baso % (Auto) Neut # (Auto) Lymph # (Auto) [place] # (Auto) Eos # (Auto) Baso # (Auto) Neutrophils % (Manual) Band Neutrophils % Lymphocytes % (Manual) Monocytes % (Manual) Eosinophils % (Manual) Myelocytes % Platelet Estimate Hypochromasia (manual) Poikilocytosis (manual Anisocytosis (manual) Ovalocytes Schistocytes PT INR APTT Fibrinogen pCO2 pO2 HCO3 ABG pH ABG Total CO2 ABG O2 Saturation ABG Base Excess Mariusz Test ABG Potassium A-a O2 Difference Glucose Lactate FiO2 Sodium 135 Potassium 3.3 L Chloride 100 Carbon Dioxide 27 Anion Gap 11 BUN 17 Creatinine 3.0 H Est GFR ( Amer) 19 Est GFR (Non-Af Amer) 15 POC Glucose (mg/dL) 120 H Random Glucose 93 Lactic Acid 0.7 Calcium 8.5 Phosphorus Magnesium Total Bilirubin AST ALT Alkaline Phosphatase Total Protein Albumin Globulin Albumin/Globulin Ratio Procalcitonin Arterial Blood Potassium C. difficile Ag & Toxin Blood Type Antibody Screen Crossmatch BBK History Checked 11/08/17 11/08/17 11/08/17 09:57 11:15 15:57 WBC RBC Hgb Hct MCV MCH MCHC RDW Plt Count MPV Neut % (Auto) Lymph % (Auto) [place] % (Auto) Eos % (Auto) Baso % (Auto) Neut # (Auto) Lymph # (Auto) [place] # (Auto) Eos # (Auto) Baso # (Auto) Neutrophils % (Manual) Band Neutrophils % Lymphocytes % (Manual) Monocytes % (Manual) Eosinophils % (Manual) Myelocytes % Platelet Estimate Hypochromasia (manual) Poikilocytosis (manual Anisocytosis (manual) Ovalocytes Schistocytes PT 24.2 H INR 2.2 H APTT 42.2 H Fibrinogen pCO2 pO2 HCO3 ABG pH ABG Total CO2 ABG O2 Saturation ABG Base Excess Mariusz Test ABG Potassium A-a O2 Difference Glucose Lactate FiO2 Sodium Potassium Chloride Carbon Dioxide Anion Gap BUN Creatinine Est GFR ( Amer) Est GFR (Non-Af Amer) POC Glucose (mg/dL) 105 98 Random Glucose Lactic Acid Calcium Phosphorus Magnesium Total Bilirubin AST ALT Alkaline Phosphatase Total Protein Albumin Globulin Albumin/Globulin Ratio Procalcitonin Arterial Blood Potassium C. difficile Ag & Toxin Blood Type Antibody Screen Crossmatch BBK History Checked 11/08/17 11/08/17 11/08/17 20:00 21:54 22:00 WBC RBC Hgb Hct MCV MCH MCHC RDW Plt Count MPV Neut % (Auto) Lymph % (Auto) [place] % (Auto) Eos % (Auto) Baso % (Auto) Neut # (Auto) Lymph # (Auto) [place] # (Auto) Eos # (Auto) Baso # (Auto) Neutrophils % (Manual) Band Neutrophils % Lymphocytes % (Manual) Monocytes % (Manual) Eosinophils % (Manual) Myelocytes % Platelet Estimate Hypochromasia (manual) Poikilocytosis (manual Anisocytosis (manual) Ovalocytes Schistocytes PT 16.4 H D INR 1.5 H D APTT Fibrinogen pCO2 pO2 HCO3 ABG pH ABG Total CO2 ABG O2 Saturation ABG Base Excess Mariusz Test ABG Potassium A-a O2 Difference Glucose Lactate FiO2 Sodium 135 Potassium 3.7 Chloride 101 Carbon Dioxide 25 Anion Gap 13 BUN 21 H Creatinine 3.9 H Est GFR ( Amer) 14 Est GFR (Non-Af Amer) 11 POC Glucose (mg/dL) 91 Random Glucose 93 Lactic Acid Calcium 8.8 Phosphorus Magnesium Total Bilirubin 0.6 AST 16 ALT 34 Alkaline Phosphatase 70 Total Protein 5.1 L Albumin 2.0 L Globulin 3.0 Albumin/Globulin Ratio 0.7 L Procalcitonin Arterial Blood Potassium C. difficile Ag & Toxin Blood Type Antibody Screen Crossmatch BBK History Checked 11/08/17 11/09/17 11/09/17 22:40 04:20 04:20 WBC 4.7 L RBC 3.75 L Hgb 10.7 L Hct 33.0 L MCV 88.0 MCH 28.6 MCHC 32.5 L RDW 19.1 H Plt Count 107 L MPV 7.7 Neut % (Auto) 73.9 Lymph % (Auto) 8.9 L [place] % (Auto) 13.8 H Eos % (Auto) 2.7 Baso % (Auto) 0.7 Neut # (Auto) 3.5 Lymph # (Auto) 0.4 L [place] # (Auto) 0.7 Eos # (Auto) 0.1 Baso # (Auto) 0.0 Neutrophils % (Manual) 55 Band Neutrophils % 18 H* Lymphocytes % (Manual) 10 L Monocytes % (Manual) 12 H Eosinophils % (Manual) 4 Myelocytes % 1 H Platelet Estimate Slightly decreased L Hypochromasia (manual) Slight Poikilocytosis (manual Slight Anisocytosis (manual) Slight Ovalocytes Slight Schistocytes Slight PT 16.4 H 14.6 H INR 1.5 H 1.3 H APTT 30.4 D Fibrinogen 422 H pCO2 pO2 HCO3 ABG pH ABG Total CO2 ABG O2 Saturation ABG Base Excess Mariusz Test ABG Potassium A-a O2 Difference Glucose Lactate FiO2 Sodium Potassium Chloride Carbon Dioxide Anion Gap BUN Creatinine Est GFR ( Amer) Est GFR (Non-Af Amer) POC Glucose (mg/dL) Random Glucose Lactic Acid Calcium Phosphorus Magnesium Total Bilirubin AST ALT Alkaline Phosphatase Total Protein Albumin Globulin Albumin/Globulin Ratio Procalcitonin Arterial Blood Potassium C. difficile Ag & Toxin Blood Type Antibody Screen Crossmatch BBK History Checked 11/09/17 11/09/17 11/09/17 04:20 04:23 06:12 WBC RBC Hgb Hct MCV MCH MCHC RDW Plt Count MPV Neut % (Auto) Lymph % (Auto) [place] % (Auto) Eos % (Auto) Baso % (Auto) Neut # (Auto) Lymph # (Auto) [place] # (Auto) Eos # (Auto) Baso # (Auto) Neutrophils % (Manual) Band Neutrophils % Lymphocytes % (Manual) Monocytes % (Manual) Eosinophils % (Manual) Myelocytes % Platelet Estimate Hypochromasia (manual) Poikilocytosis (manual Anisocytosis (manual) Ovalocytes Schistocytes PT INR APTT Fibrinogen pCO2 pO2 HCO3 ABG pH ABG Total CO2 ABG O2 Saturation ABG Base Excess Mariusz Test ABG Potassium A-a O2 Difference Glucose Lactate FiO2 Sodium 139 Potassium 3.5 L Chloride 101 Carbon Dioxide 26 Anion Gap 16 BUN 22 H Creatinine 4.5 H Est GFR ( Amer) 12 Est GFR (Non-Af Amer) 10 POC Glucose (mg/dL) 78 99 Random Glucose 76 Lactic Acid Calcium 9.2 Phosphorus Magnesium Total Bilirubin 0.6 AST 18 ALT 31 Alkaline Phosphatase 90 Total Protein 5.3 L Albumin 2.3 L Globulin 3.1 Albumin/Globulin Ratio 0.7 L Procalcitonin Arterial Blood Potassium C. difficile Ag & Toxin Blood Type Antibody Screen Crossmatch BBK History Checked 11/09/17 11/09/17 11/09/17 09:06 10:47 12:52 WBC RBC Hgb Hct MCV MCH MCHC RDW Plt Count MPV Neut % (Auto) Lymph % (Auto) [place] % (Auto) Eos % (Auto) Baso % (Auto) Neut # (Auto) Lymph # (Auto) [place] # (Auto) Eos # (Auto) Baso # (Auto) Neutrophils % (Manual) Band Neutrophils % Lymphocytes % (Manual) Monocytes % (Manual) Eosinophils % (Manual) Myelocytes % Platelet Estimate Hypochromasia (manual) Poikilocytosis (manual Anisocytosis (manual) Ovalocytes Schistocytes PT INR APTT Fibrinogen pCO2 39 35 pO2 82 344 H HCO3 24.5 23.4 ABG pH 7.40 7.41 ABG Total CO2 25.4 23.3 ABG O2 Saturation 97.7 98.9 H ABG Base Excess -0.5 -2.0 Mariusz Test Yes Yes ABG Potassium 3.5 L 3.9 A-a O2 Difference 19.0 -238.0 Glucose 87 92 Lactate 0.7 0.9 FiO2 21.0 21.0 Sodium 135.0 132.0 Potassium Chloride 108.0 H 110.0 H Carbon Dioxide Anion Gap BUN Creatinine Est GFR ( Amer) Est GFR (Non-Af Amer) POC Glucose (mg/dL) 94 Random Glucose Lactic Acid Calcium Phosphorus Magnesium Total Bilirubin AST ALT Alkaline Phosphatase Total Protein Albumin Globulin Albumin/Globulin Ratio Procalcitonin Arterial Blood Potassium 3.5 L 3.9 C. difficile Ag & Toxin Blood Type Antibody Screen Crossmatch BBK History Checked 11/09/17 11/09/17 11/09/17 14:15 14:15 15:39 WBC 10.8 D RBC 4.51 Hgb 13.0 D Hct 39.7 MCV 88.0 MCH 28.8 MCHC 32.7 L RDW 18.6 H Plt Count 72 L D MPV Neut % (Auto) Lymph % (Auto) [place] % (Auto) Eos % (Auto) Baso % (Auto) Neut # (Auto) Lymph # (Auto) [place] # (Auto) Eos # (Auto) Baso # (Auto) Neutrophils % (Manual) Band Neutrophils % Lymphocytes % (Manual) Monocytes % (Manual) Eosinophils % (Manual) Myelocytes % Platelet Estimate Hypochromasia (manual) Poikilocytosis (manual Anisocytosis (manual) Ovalocytes Schistocytes PT INR APTT Fibrinogen pCO2 pO2 HCO3 ABG pH ABG Total CO2 ABG O2 Saturation ABG Base Excess Mariusz Test ABG Potassium A-a O2 Difference Glucose Lactate FiO2 Sodium 137 Potassium 3.7 Chloride 105 Carbon Dioxide 20 L Anion Gap 16 BUN 21 H Creatinine 3.7 H Est GFR ( Amer) 15 Est GFR (Non-Af Amer) 12 POC Glucose (mg/dL) 96 Random Glucose 87 Lactic Acid Calcium 8.8 Phosphorus 4.4 Magnesium 1.6 Total Bilirubin AST ALT Alkaline Phosphatase Total Protein Albumin Globulin Albumin/Globulin Ratio Procalcitonin Arterial Blood Potassium C. difficile Ag & Toxin Blood Type Antibody Screen Crossmatch BBK History Checked 11/09/17 11/09/17 11/10/17 18:22 21:39 06:25 WBC 19.5 H D RBC 4.01 Hgb 11.4 L Hct 35.5 MCV 88.5 MCH 28.5 MCHC 32.2 L RDW 18.6 H Plt Count 126 L D MPV Neut % (Auto) Lymph % (Auto) [place] % (Auto) Eos % (Auto) Baso % (Auto) Neut # (Auto) Lymph # (Auto) [place] # (Auto) Eos # (Auto) Baso # (Auto) Neutrophils % (Manual) Band Neutrophils % Lymphocytes % (Manual) Monocytes % (Manual) Eosinophils % (Manual) Myelocytes % Platelet Estimate Hypochromasia (manual) Poikilocytosis (manual Anisocytosis (manual) Ovalocytes Schistocytes PT INR APTT Fibrinogen pCO2 pO2 HCO3 ABG pH ABG Total CO2 ABG O2 Saturation ABG Base Excess Mariusz Test ABG Potassium A-a O2 Difference Glucose Lactate FiO2 Sodium Potassium Chloride Carbon Dioxide Anion Gap BUN Creatinine Est GFR ( Amer) Est GFR (Non-Af Amer) POC Glucose (mg/dL) 123 H 107 Random Glucose Lactic Acid Calcium Phosphorus Magnesium Total Bilirubin AST ALT Alkaline Phosphatase Total Protein Albumin Globulin Albumin/Globulin Ratio Procalcitonin Arterial Blood Potassium C. difficile Ag & Toxin Blood Type Antibody Screen Crossmatch BBK History Checked 11/10/17 11/10/17 06:25 07:09 WBC RBC Hgb Hct MCV MCH MCHC RDW Plt Count MPV Neut % (Auto) Lymph % (Auto) [place] % (Auto) Eos % (Auto) Baso % (Auto) Neut # (Auto) Lymph # (Auto) [place] # (Auto) Eos # (Auto) Baso # (Auto) Neutrophils % (Manual) Band Neutrophils % Lymphocytes % (Manual) Monocytes % (Manual) Eosinophils % (Manual) Myelocytes % Platelet Estimate Hypochromasia (manual) Poikilocytosis (manual Anisocytosis (manual) Ovalocytes Schistocytes PT INR APTT Fibrinogen pCO2 pO2 HCO3 ABG pH ABG Total CO2 ABG O2 Saturation ABG Base Excess Mariusz Test ABG Potassium A-a O2 Difference Glucose Lactate FiO2 Sodium 138 Potassium 4.1 Chloride 105 Carbon Dioxide 18 L Anion Gap 19 BUN 27 H Creatinine 4.5 H Est GFR ( Amer) 12 Est GFR (Non-Af Amer) 10 POC Glucose (mg/dL) 123 H Random Glucose 112 H Lactic Acid Calcium 9.1 Phosphorus Magnesium Total Bilirubin AST ALT Alkaline Phosphatase Total Protein Albumin Globulin Albumin/Globulin Ratio Procalcitonin Arterial Blood Potassium C. difficile Ag & Toxin Blood Type Antibody Screen Crossmatch BBK History Checked Microbiology 11/04/17 11:09 Blood Blood Culture - Final NO GROWTH AFTER 5 DAYS 11/04/17 17:59 Urine,Poe Urine Culture - Final No Growth (<1,000 CFU/ML) 11/04/17 18:00 Nose MRSA Culture (Admit) - Final MRSA NOT DETECTED Assessment and Plan (1) ESRD (end stage renal disease) on dialysis Status: Acute (2) Ischemic colitis Status: Acute (3) History of cardiac arrest Status: Acute (4) Gastrointestinal hemorrhage Status: Acute - Assessment and Plan (Free Text) Assessment: A/P- Patient is a 67 year old female with past medical history includes ESRD on dialysis, Type 2 DM, HTN, obesity, history of old CVA in 2011, atrial fibrillation, GI bleed with hemorrhagic shock just last week at [facility]. During that time the patient had an episode of cardiac arrest and respiratory failure and required intubation and hemodynamic monitoring in the ICU due to hypotensive shock from extravasation. She developed ischemic colitis that was diagnosed with colonoscopy and transferred to [facility] acute rehab for PT/ OT. She was transferred to [facility] ICU due to rectal bleed with hypovolemia and suspected sepsis.copy that showed colonic diverticulosis, internal hemorrhoids and diffuse severe inflammation with ulcerations in the entire colon, severe ischemic colitis. On 11/04 she started to have worsening of rectal bleed , with blood clots and hypotension , fever Tmax 102 and minimal lower abdominal tenderness. Full septic panel was ordered , Cipro and Flagyl given , IVF ( bolus started ). Patient was then sent to [facility] ED then to ICU for rule out sepsis and GI bleed. pt. s/o partial colectomy yesterday with ostomy and KITA drain in place POD #1 prior to he surgery had been afebrile and normal wbc count was on empiric ceftriaxone and flagy today still afebrile but has rise in WBc ( new) could be reactive in nature or inflamamtory stool c.diff- neg blood cx- neg urine cx- neg plan- check blood cx now. check cxr r/o atelectasis. check wbc in am. place on empiric zosyn for now pending cx and further lab results. check lactate level as well. all labs and imaging reviewed. ICU time 45 min.
[2017-11-10] MEDS: Lactated Ringer's 1,000 ML IV SCH (14:00)
[2017-11-10] MEDS: Epoetin Alfa 20000 UNIT/ML Inj IV SCH (14:02)
--- NOTE | 2017-11-10 16:44 | RAD ---
PROCEDURE: CHEST RADIOGRAPH, 1 VIEW HISTORY: CHF COMPARISON: None available. FINDINGS: LUNGS: Pulmonary vascular congestion. PLEURA: Small bilateral pleural effusions. CARDIOVASCULAR: Atherosclerotic aortic calcifications. Cardiomediastinal silhouette stably enlarged. OSSEOUS STRUCTURES: Unchanged. VISUALIZED UPPER ABDOMEN: Normal. OTHER FINDINGS: Right internal jugular access tunneled hemodialysis catheter unchanged. IMPRESSION: Pulmonary vascular congestion with small bilateral pleural effusions.
[2017-11-10 17:24] LABS: INR 1.1 (0.9-1.2); PARTIAL THROMBOPLASTIN TIME 39.3 Seconds (25.6-37.1); PROTHROMBIN TIME 12.7 Seconds (9.8-13.1)
--- NOTE | 2017-11-10 17:27 | CP.PCM.PN ---
Subjective - Date & Time of Evaluation Date of Evaluation: 11/10/17 Time of Evaluation: 17:24 - Subjective Subjective: Follow up Nephrology Consultation Note Assessment: critical GI bleed, ischemic colitis s/p hemicolectomy Diabetic chronic Kidney Disease (E11.22) Hypertensive Chronic Kidney Disease (I12.0) End stage renal disease (N18.6) dependence on hemodialysis (Z99.2) (MWF) via permacath Anemia (D64.9), Hyperphosphatemia (E83.39), Secondary Hyperparathyroidism (E21.1 ), HTN (I12.0) hx of CVA Plan: Will plan for HD today as ordered. Due to low BP she tolerated only 2 hrs of dialysis. will re-eval tomorrow for dialysis needs Continue with Nephrovite 1 tab/day. PRBC as needed for anemia. On DEYA as epogen with HD, last Hb 11.4 Continue with phos binders, last phos level 4.4 BP control with meds as ordered. Patient not on RAAS sony as BP low Glycemic control, Dialysis consistent diet Further work up/management as per primary team Dose meds/antibiotics (if needed) for ESRD status. Avoid fleets enema/magnesium based laxatives. Thanks for allowing me to participate in care of your patient. Will follow patient with you. Please call if any Qs. d/w ICU team Dr Marvin Sapp Office: [phone] Subjective: Noted events overnight. Patients feels okay. Denies chest pain, palpitation, shortness of breath, leg swelling. All other negative Physical Examination: General Appearance: Comfortable, in no acute respiratory distress, co-operative . Vitals reviewed and noted as below Head; Atraumatic, normocephalic ENT: no ulcers no thrush. Tongue is midline. Oropharynx: no rash or ulcers. EYES: Pupils are equal, round and reactive to light accommodation. Eye muscles and extraocular movement intact. Sclera is anicteric. Neck; supple no lymphadenopathy, no thyromegaly or bruit Lungs: Normal respiratory rate/effort. Breath sounds bilateral equal and clear Heart: Normal rate. s1s2 normal. No rub or gallop. Extremities: no edema. No varicose veins Neurological: Patient is awake alert but not much communciative Skin: Warm and dry. Normal turgor. No rash. Palpitation: Normal elasticity for age Abdomen: Abdomen is soft. Bowel sounds +. There is no abdominal tenderness, no guarding/rigidity or organomegaly. has left colostomy Psych: unable MSK: no joint tenderness or swelling. Digits and nails normal, no deformity : kidney or bladder not palpable Access: permacath Labs/imaging reviewed. Past medical history, past surgical history, family history, social history, allergy reviewed and noted as below Family Hx: no hx of CKD. Non contributory Objective - Vital Signs/Intake and Output Vital Signs (last 24 hours): Temp Pulse Resp BP Pulse Ox 97.8 F 104 H 16 125/77 100 11/10/17 07:38 11/10/17 07:38 11/10/17 07:38 11/10/17 07:38 11/10/17 07:38 Intake and Output: 11/10/17 11/10/17 06:59 18:59 Intake Total 775 Output Total 200 Balance 575 - Medications Medications: Current Medications Epoetin Gonzalo (Procrit) 5,000 unit IV MWF [facility] Last Admin: 11/10/17 14:02 Dose: 5,000 unit Pantoprazole Sodium 40 mg/ (Sodium Chloride) 100 mls @ 20 mls/hr IVPB Q5H [facility] PRN Reason: 8 MG/HR Last Admin: 11/10/17 13:58 Dose: 20 mls/hr Lactated Ringer's (Lactated Ringer's) 1,000 mls @ 75 mls/hr IV .[id number] [facility] Last Admin: 11/10/17 14:00 Dose: 75 mls/hr Lactated Ringer's (Lactated Ringer's) 250 mls @ 999 mls/hr IV .Q16M [facility] Piperacillin Sod/Tazobactam (Sod 2.25 gm/ Sodium Chloride) 100 mls @ 100 mls/ hr IVPB Q8 ROBBI PRN Reason: Protocol Last Admin: 11/10/17 17:00 Dose: 100 mls/hr Insulin Human Regular (Humulin R) 0 units SC ACCU-CHECK [facility] PRN Reason: Protocol Last Admin: 11/10/17 16:57 Dose: Not Given Morphine Sulfate (Morphine) 8 mg IVP Q4 PRN PRN Reason: Pain, severe (8-10) Ondansetron HCl (Zofran Inj) 4 mg IVP Q4 PRN PRN Reason: Nausea/Vomiting Silver Sulfadiazine (Silvadene 1% 50 Gm) 0 applic TOP BID ROBBI Last Admin: 11/10/17 17:04 Dose: 1 applic - Labs Labs: 11/10/17 06:25 11/10/17 06:25 PT 14.6 Seconds (9.8-13.1) H 11/09/17 04:20 INR 1.3 (0.9-1.2) H 11/09/17 04:20 APTT 30.4 Seconds (25.6-37.1) D 11/09/17 04:20
[2017-11-10] MEDS ORDERED: DiphenhydrAMINE 50 mg/ml Inj IVP STA (23:33)
[2017-11-11] MEDS: Pantoprazole 40 MG in Sodium Chloride 0.9% 100 ML IVPB SCH ×2 (00:55→05:21)
[2017-11-11] MEDS: Lactated Ringer's 1,000 ML IV SCH (05:23)
[2017-11-11 06:31] LABS: HEMOGLOBIN 9.2 g/dL (12.0-16.0); MEAN CELL VOLUME 88.1 fl (81.0-99.0); MEAN CORPUSCULAR HEMOGLOBIN 29.1 pg (27.0-31.0); RBC 3.18 Mil/uL (3.80-5.20); RED CELL DISTRIBUTION WIDTH 18.3 % (11.5-14.5)
[2017-11-11] MEDS: Insulin Regular 100 units/ml SC SCH ×4 (06:42→22:49)
[2017-11-11 06:44] LABS: CALCIUM 8.5 mg/dL (8.4-10.2)
[2017-11-11] MEDS ORDERED: Dextrose 5%/Lactated Ringer's 1,000 ML IV SCH (06:45)
--- NOTE | 2017-11-11 09:02 | CP.PCM.PN ---
Subjective - Date & Time of Evaluation Date of Evaluation: 11/11/17 Time of Evaluation: 07:00 - Subjective Subjective: Patient seen and examined this morning. Reports abdominal pain has improved. KITA drain 210cc/24 hr serosanguinous in character. Stoma appears pink, however, no stool output as of yet. No acute events over night. Objective - Vital Signs/Intake and Output Vital Signs (last 24 hours): Temp Pulse Resp BP Pulse Ox 98.6 F 102 H 23 139/77 100 11/11/17 08:00 11/11/17 08:00 11/11/17 08:00 11/11/17 08:00 11/11/17 08:00 Intake and Output: 11/11/17 11/11/17 06:59 18:59 Intake Total 775 Output Total 120 Balance 655 - Medications Medications: Current Medications Epoetin Gonzalo (Procrit) 5,000 unit IV MWF [facility] Last Admin: 11/10/17 14:02 Dose: 5,000 unit Heparin Sodium (Porcine) (Heparin) 5,000 units SC Q8 [facility] PRN Reason: Protocol Pantoprazole Sodium 40 mg/ (Sodium Chloride) 100 mls @ 20 mls/hr IVPB Q5H [facility] PRN Reason: 8 MG/HR Last Admin: 11/11/17 05:21 Dose: 20 mls/hr Lactated Ringer's (Lactated Ringer's) 1,000 mls @ 75 mls/hr IV .[id number] [facility] Last Admin: 11/11/17 05:23 Dose: 75 mls/hr Piperacillin Sod/Tazobactam (Sod 2.25 gm/ Sodium Chloride) 100 mls @ 100 mls/ hr IVPB Q8 [facility] PRN Reason: Protocol Last Admin: 11/11/17 00:57 Dose: 100 mls/hr Dextrose/Lactated Ringer's (Dextrose 5%/Lactated Ringer's) 1,000 mls @ 75 mls/ hr IV .[id number] [facility] Stop: 11/11/17 20:04 Last Admin: 11/11/17 06:45 Dose: 75 mls/hr Insulin Human Regular (Humulin R) 0 units SC ACCU-CHECK [facility] PRN Reason: Protocol Last Admin: 11/11/17 06:42 Dose: Not Given Morphine Sulfate (Morphine) 8 mg IVP Q4 PRN PRN Reason: Pain, severe (8-10) Last Admin: 11/11/17 08:42 Dose: 8 mg Ondansetron HCl (Zofran Inj) 4 mg IVP Q4 PRN PRN Reason: Nausea/Vomiting Silver Sulfadiazine (Silvadene 1% 50 Gm) 0 applic TOP BID [facility] Last Admin: 11/10/17 17:04 Dose: 1 applic - Labs Labs: 11/11/17 05:00 11/11/17 05:00 PT 12.7 Seconds (9.8-13.1) 11/10/17 16:14 INR 1.1 (0.9-1.2) 11/10/17 16:14 APTT 39.3 Seconds (25.6-37.1) H D 11/10/17 16:14 - Constitutional Appears: No Acute Distress - Head Exam Head Exam: NORMOCEPHALIC - Eye Exam Eye Exam: Normal appearance - ENT Exam ENT Exam: Mucous Membranes Moist - Respiratory Exam Respiratory Exam: NORMAL BREATHING PATTERN - Cardiovascular Exam Cardiovascular Exam: +S1, +S2 - GI/Abdominal Exam GI & Abdominal Exam: Soft, Tenderness. absent: Distended, Guarding, Rigid - Neurological Exam Neurological Exam: Alert, Awake, Oriented x3 - Psychiatric Exam Psychiatric exam: Normal Mood - Skin Skin Exam: Dry, Intact, Warm Assessment and Plan - Assessment and Plan (Free Text) Assessment: 67F w/ lower GI bleed 2/2 ischemic colitis in descending and sigmoid colon s/p L hemicolectomy POD 2 Plan: -NPO -Start TPN -OK to start DVT ppx -Strict I&O's -Encourage Incentive spirometer use -OOB to chair -D/w Dr. [place] PGY2
[2017-11-11] MEDS: Silver Sulfadiazine 1% CREAM (50 gm) TOP SCH ×2 (09:37→17:39)
[2017-11-11] MEDS ORDERED: Amino Acids/Dextrose 1,000 ML IV ONE ×2 (10:00→23:00)
[2017-11-11] MEDS ORDERED: Multivitamin (MVI) 10 ML, Chromium/Copper/Manganese/Zinc 3 ML in Amino Acids/Dextrose 1... IV ONE (10:15)
--- NOTE | 2017-11-11 11:55 | CP.CCUPN ---
CCU Subjective - Physician Review Events Since Last Encounter (Free Text): 11/11/17 11:53 has been stable , no blood loss, no bleeding Off pressors, BP has been stable TPN started today, by surgery On heparin s/q now for DVT prophylaxis HD F CCU Objective - Vital Signs / Intake & Output Vital Signs (Last 4 hours): Vital Signs Temp Pulse Resp BP Pulse Ox 11/11/17 10:00 99 H 10 L 129/63 100 11/11/17 08:00 98.6 F 102 H 23 139/77 100 Intake and Output (Last 8hrs): Intake & Output 11/10/17 11/11/17 11/11/17 22:59 06:59 14:59 Intake Total 490 625 100 Output Total 150 70 Balance 340 555 100 Intake: IV 450 525 Intake, Piggyback 40 100 100 Output: Drainage 150 60 Right Lower Abdomen 150 60 Urine 10 Urethral (Poe) 10 - Physical Exam Narrative Physical Exam (Free Text): 11/11/17 11:54 alert and awake P/E Neck: No JVD Lungs: no ronchi, crackels Abdomen: soft, non-tender Ext: + 1 edema Heart: No gallop Head: Positive for: Atraumatic, Normocephalic Pupils: Positive for: PERRL Extroacular Muscles: Positive for: EOMI Conjunctiva: Positive for: Normal. Negative for: Injected, Icteric Mouth: Positive for: Moist Mucous Membranes Nose (Internal): Positive for: Normal Inspection Neck: Positive for: Normal Range of Motion, Trachea Midline. Negative for: Meningeal Signs, MIDLINE TENDERNESS, Paraspinal Tenderness, JVD, Lymphadenopathy , Bruit, Other Respiratory/Chest: Positive for: Clear to Auscultation, Good Air Exchange. Negative for: Respiratory Distress, Accessory Muscle Use Cardiovascular: Positive for: Regular Rate and Rhythm, Normal S1, S2, Peripheal Pulses Present. Negative for: Murmurs, Irregular Rhythm Upper Extremity: Positive for: Normal Inspection Lower Extremity: Positive for: Normal Inspection Neurological: Positive for: GCS=15, CN II-XII Intact, Speech Normal, Motor Func Grossly Intact, Normal Sensory Function - Medications Active Medications: Active Medications Generic Name Dose Route Start Last Admin Trade Name Freq PRN Reason Stop Dose Admin Epoetin Gonzalo 5,000 unit 11/07/17 09:00 11/10/17 14:02 Procrit IV 5,000 unit MWF [facility] Administration Heparin Sodium (Porcine) 5,000 units 11/11/17 09:00 11/11/17 09:41 Heparin SC 5,000 units Q8 [facility] Administration Protocol Hydromorphone HCl 1 mg 11/11/17 13:00 Dilaudid IVP Q4 [facility] Pantoprazole Sodium 40 mg/ 100 mls @ 20 mls/hr 11/08/17 19:15 11/11/17 05:21 Sodium Chloride IVPB 20 mls/hr Q5H [facility] Administration 8 MG/HR Piperacillin Sod/Tazobactam 100 mls @ 100 mls/hr 11/10/17 17:00 11/11/17 09: 37 Sod 2.25 gm/ Sodium Chloride IVPB 100 mls/hr Q8 [facility] Administration Protocol Multivitamins/Vitamin C 10 ml/ 1,013 mls @ 83 mls/hr 11/11/17 10:15 11/11/17 11:20 Chromium/Copper/Manganese/ IV 11/11/17 22:27 83 mls/hr Zinc 3 ml/ Amino Acids .[id number] ONE Administration Amino Acids 1,000 mls @ 83 mls/hr 11/11/17 23:00 Clinimix 4.25%-25% 1000 Ml IV 11/12/17 11:02 .Q12H3M ONE Insulin Human Regular 0 units 11/04/17 17:00 11/11/17 06:42 Humulin R SC Not Given ACCU-CHECK [facility] Protocol Ondansetron HCl 4 mg 11/09/17 12:34 Zofran Inj IVP Q4 PRN Nausea/Vomiting Silver Sulfadiazine 0 applic 11/05/17 17:00 11/11/17 09:37 Silvadene 1% 50 Gm TOP 1 applic BID [facility] Administration - Patient Studies Lab Studies: Lab Studies 11/11/17 11/11/17 11/11/17 Range/Units 06:38 05:00 05:00 WBC 18.0 H (4.8-10.8) K/uL RBC 3.18 L (3.80-5.20) Mil/uL Hgb 9.2 L D (12.0-16.0) g/dL Hct 28.0 L (34.0-47.0) % MCV 88.1 (81.0-99.0) fl MCH 29.1 (27.0-31.0) pg MCHC 33.0 (33.0-37.0) g/dL RDW 18.3 H (11.5-14.5) % Plt Count 97 L D (130-400) K/uL PT (9.8-13.1) Seconds INR (0.9-1.2) APTT (25.6-37.1) Seconds Sodium 136 (132-148) mmol/l Potassium 3.5 L (3.6-5.0) MMOL/L Chloride 102 (98-107) mmol/L Carbon Dioxide 23 (22-30) mmol/L Anion Gap 15 (10-20) BUN 20 H (7-17) mg/dl Creatinine 3.9 H (0.7-1.2) mg/dl Est GFR ( Amer) 14 Est GFR (Non-Af Amer) 11 POC Glucose (mg/dL) 71 (65-110) mg/dL Random Glucose 73 (65-105) mg/dL Calcium 8.5 (8.4-10.2) mg/dL Crossmatch 11/10/17 11/10/17 11/10/17 Range/Units 22:29 17:24 16:14 WBC (4.8-10.8) K/uL RBC (3.80-5.20) Mil/uL Hgb (12.0-16.0) g/dL Hct (34.0-47.0) % MCV (81.0-99.0) fl MCH (27.0-31.0) pg MCHC (33.0-37.0) g/dL RDW (11.5-14.5) % Plt Count (130-400) K/uL PT 12.7 (9.8-13.1) Seconds INR 1.1 (0.9-1.2) APTT 39.3 H D (25.6-37.1) Seconds Sodium (132-148) mmol/l Potassium (3.6-5.0) MMOL/L Chloride (98-107) mmol/L Carbon Dioxide (22-30) mmol/L Anion Gap (10-20) BUN (7-17) mg/dl Creatinine (0.7-1.2) mg/dl Est GFR ( Amer) Est GFR (Non-Af Amer) POC Glucose (mg/dL) 83 104 (65-110) mg/dL Random Glucose (65-105) mg/dL Calcium (8.4-10.2) mg/dL Crossmatch 11/07/17 Range/Units 16:05 WBC (4.8-10.8) K/uL RBC (3.80-5.20) Mil/uL Hgb (12.0-16.0) g/dL Hct (34.0-47.0) % MCV (81.0-99.0) fl MCH (27.0-31.0) pg MCHC (33.0-37.0) g/dL RDW (11.5-14.5) % Plt Count (130-400) K/uL PT (9.8-13.1) Seconds INR (0.9-1.2) APTT (25.6-37.1) Seconds Sodium (132-148) mmol/l Potassium (3.6-5.0) MMOL/L Chloride (98-107) mmol/L Carbon Dioxide (22-30) mmol/L Anion Gap (10-20) BUN (7-17) mg/dl Creatinine (0.7-1.2) mg/dl Est GFR ( Amer) Est GFR (Non-Af Amer) POC Glucose (mg/dL) (65-110) mg/dL Random Glucose (65-105) mg/dL Calcium (8.4-10.2) mg/dL Crossmatch See Detail Laboratory Results - last 24 hr 11/07/17 11/10/17 11/10/17 16:05 16:14 17:24 WBC RBC Hgb Hct MCV MCH MCHC RDW Plt Count PT 12.7 INR 1.1 APTT 39.3 H D Sodium Potassium Chloride Carbon Dioxide Anion Gap BUN Creatinine Est GFR ( Amer) Est GFR (Non-Af Amer) POC Glucose (mg/dL) 104 Random Glucose Calcium Crossmatch See Detail 11/10/17 11/11/17 11/11/17 22:29 05:00 05:00 WBC 18.0 H RBC 3.18 L Hgb 9.2 L D Hct 28.0 L MCV 88.1 MCH 29.1 MCHC 33.0 RDW 18.3 H Plt Count 97 L D PT INR APTT Sodium 136 Potassium 3.5 L Chloride 102 Carbon Dioxide 23 Anion Gap 15 BUN 20 H Creatinine 3.9 H Est GFR ( Amer) 14 Est GFR (Non-Af Amer) 11 POC Glucose (mg/dL) 83 Random Glucose 73 Calcium 8.5 Crossmatch 11/11/17 06:38 WBC RBC Hgb Hct MCV MCH MCHC RDW Plt Count PT INR APTT Sodium Potassium Chloride Carbon Dioxide Anion Gap BUN Creatinine Est GFR ( Amer) Est GFR (Non-Af Amer) POC Glucose (mg/dL) 71 Random Glucose Calcium Crossmatch Fingerstick Blood Sugar Results: 71 Critical Care Progress Note - Nutrition Nutrition: Nutrition Category Date Time Status NPO Diet [DIET] Diets 11/09/17 Dinner Active Assessment/Plan - Assessment and Plan (Free Text) Assessment: 1. Hypovolemic shock . GI bleed and poss Sepsis Improved, On ertapenum and Flagyl Off Levophed Off IVF on TPN now 2.Recurrent lower GI bleed due to Ischemic colitis no more bleeding POD#2 stable could be transferred out of ICU after HD tomorrow, ir remained stable 3. History of recent cardiac arrest/respiratory arrest 4. ESRD on Dialysis [facility] Nephrology following Had HD yesterday, missed on Sunday Next ; HD tomorrow 5. History of R CVA 10/24/17 Statin on hold since patient is NPO 6. Paroxysmal Afib Rate controlled no anticoag due to rectal bleed 7. DVT prophylaxis SCDs S/Q heparin
--- NOTE | 2017-11-11 15:04 | CP.PCM.PN ---
Subjective - Date & Time of Evaluation Date of Evaluation: 11/11/17 Time of Evaluation: 08:00 - Subjective Subjective: Patient seen and examined bedside. No acute issues overnight. Underwent HD yesterday Hemodynamically stable, afebrile With hypoactive bowel sounds. Surgical wound healing well.Stoma appears healthy but with no output . KITA drain with 260 ml output last 12 hours BP 129/63 HR 99 No bleeding WBC trending down to 18 K , Hgb 9.2 Objective - Vital Signs/Intake and Output Vital Signs (last 24 hours): Temp Pulse Resp BP Pulse Ox 98.6 F 99 H 10 L 129/63 100 11/11/17 08:00 11/11/17 10:00 11/11/17 10:00 11/11/17 10:00 11/11/17 10:00 Intake and Output: 11/11/17 11/11/17 06:59 18:59 Intake Total 775 100 Output Total 120 Balance 655 100 - Medications Medications: Current Medications Epoetin Gonzalo (Procrit) 5,000 unit IV MWF [facility] Last Admin: 11/10/17 14:02 Dose: 5,000 unit Fentanyl (Duragesic) 1 patch TD Q3D [facility] PRN Reason: Protocol Last Admin: 11/11/17 13:42 Dose: 1 patch Heparin Sodium (Porcine) (Heparin) 5,000 units SC Q8 [facility] PRN Reason: Protocol Last Admin: 11/11/17 09:41 Dose: 5,000 units Piperacillin Sod/Tazobactam (Sod 2.25 gm/ Sodium Chloride) 100 mls @ 100 mls/ hr IVPB Q8 [facility] PRN Reason: Protocol Last Admin: 11/11/17 09:37 Dose: 100 mls/hr Multivitamins/Vitamin C 10 ml/Chromium/Copper/Manganese/Zinc 3 ml/ Amino Acids 1,013 mls @ 83 mls/hr IV .[id number] ONE Stop: 11/11/17 22:27 Last Admin: 11/11/17 11:20 Dose: 83 mls/hr Amino Acids (Clinimix 4.25%-25% 1000 Ml) 1,000 mls @ 83 mls/hr IV .Q12H3M ONE Stop: 11/12/17 11:02 Insulin Human Regular (Humulin R) 0 units SC ACCU-CHECK [facility] PRN Reason: Protocol Last Admin: 11/11/17 06:42 Dose: Not Given Ondansetron HCl (Zofran Inj) 4 mg IVP Q4 PRN PRN Reason: Nausea/Vomiting Pantoprazole Sodium (Protonix Inj) 40 mg IVP Q12 [facility] Silver Sulfadiazine (Silvadene 1% 50 Gm) 0 applic TOP BID [facility] Last Admin: 11/11/17 09:37 Dose: 1 applic - Labs Labs: 11/11/17 05:00 11/11/17 05:00 PT 12.7 Seconds (9.8-13.1) 11/10/17 16:14 INR 1.1 (0.9-1.2) 11/10/17 16:14 APTT 39.3 Seconds (25.6-37.1) H D 11/10/17 16:14 - Constitutional Appears: Non-toxic, Chronically Ill, Other (obese ) - Head Exam Head Exam: ATRAUMATIC, NORMOCEPHALIC - Eye Exam Eye Exam: EOMI, PERRL - ENT Exam ENT Exam: Mucous Membranes Dry, Normal Exam - Neck Exam Neck Exam: Full ROM, Normal Inspection - Respiratory Exam Respiratory Exam: Clear to Ausculation Bilateral, NORMAL BREATHING PATTERN. absent: Rales, Rhonchi - Cardiovascular Exam Cardiovascular Exam: REGULAR RHYTHM, RRR, +S1, +S2. absent: JVD - GI/Abdominal Exam GI & Abdominal Exam: Soft, Tenderness, Hypoactive Bowel Sounds Additional comments: midline surgical incision with packing , healing well KITA drain to right quadrant with serosanguinous drainage iliostomy to left mid quadrant - Rectal Exam Rectal Exam: Deferred - Extremities Exam Additional comments: right hand dorsal aspect open wound 3 x 3 cm right arm mid portion echymosis left arm olf AVF - Back Exam Back Exam: NORMAL INSPECTION - Neurological Exam Neurological Exam: Alert, Awake - Psychiatric Exam Psychiatric exam: Normal Affect - Skin Skin Exam: Dry, Pallor, Warm Assessment and Plan - Assessment and Plan (Free Text) Assessment: 67 yo female with multiple medical problems like ESRD on dialysis, Type 2 DM, HTN, obesity, history of old CVA in 2011, atrial fibrillation,with history of recent CVA on right MCA distribution was initially admitted to [facility] where she developed GI bleed with hemorrhagic shock and severe ischemic colitis diagnosed with colonoscopy . She also had a cardiac arrest and respiratory failure requiring intubation . After improving she was transferred to acute rehab for physical therapy where she continued to have some episodes of GI bleed. On 11/04 she started to have worsening of rectal bleed , with blood clots per rectum hypotension , fever Tmax 102 and some lower abdominal tenderness. Full septic panel was ordered , Cipro and Flagyl given , IVF ( bolus started ). Patient was then admitted to ICU with diagnosis of hypovolemic shock and GI bleed and rule out sepsis . Her colonoscopy performed at [facility] had shown : diffuse severe inflammation with ulcerations in the entire colon, severe ischemic colitis mucosal ulcerations up to 40cm dinorah. GI ,surgery and ID consulted Underwent left colon resection with iliostomy on 11/09 . Transfused total 6 unit PRBC . At present in ICU , hemodynamically stable. Still no output from stoma and NPO , no rectal bleed. 1. Hypovolemic shock most secondary to GI bleed-- resolved off Levophed drip since 11/05 s/p 6 unit PRBC transfusion Continue IVF hydration and antibiotics Start TPN as per surgery 2.Recurrent lower GI bleed due to Ischemic colitis s/p left colon resection with iliostomy 11/09 pain is well controlled s/p 6 unit PRBC transfusion . Received DDAVP and FFP No output from stoma. Start TPN and monitor electrolytes Wound care as per surgery continue ambulation out of bed to chair continue IV antibiotics, pain management 3. Acute on chronic anemia GI blood loss on top of chronic kidney disease anemia s/p 6 unit PRBC transfusion continue epopoetin 4. History of recent cardiac arrest/respiratory arrest 5. ESRD on Dialysis MWF Nephro consulted continue HD as scheduled received HD yesterday 6. 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 Paroxysmal Afib patient is in and out SR and afib on monitor, rate controlled continue to monitor closely no anticoag due to rectal bleed 8. DM Type II accuchecks and insulin coverage Pt off meds as she is NPO Start TPN monitor electrolytes , accuchecks 9. DVT prophylaxis SCDs Strtr Heparin for DVt prophylaxis as per surgery
--- NOTE | 2017-11-11 17:22 | CP.PCM.PN ---
Subjective - Date & Time of Evaluation Date of Evaluation: 11/11/17 Time of Evaluation: 17:22 - Subjective Subjective: Follow up Nephrology Consultation Note Assessment: critical GI bleed, ischemic colitis s/p hemicolectomy Diabetic chronic Kidney Disease (E11.22) Hypertensive Chronic Kidney Disease (I12.0) End stage renal disease (N18.6) dependence on hemodialysis (Z99.2) (MWF) via permacath Anemia (D64.9), Hyperphosphatemia (E83.39), Secondary Hyperparathyroidism (E21.1 ), HTN (I12.0) hx of CVA Plan: Will plan for HD tomorrow as ordered. Due to low BP she tolerated only 2 hrs of dialysis yesterday Continue with Nephrovite 1 tab/day. PRBC as needed for anemia. On DEYA as epogen with HD, last Hb 11.4 Continue with phos binders, last phos level 4.4 BP control with meds as ordered. Patient not on RAAS sony as BP low Glycemic control, Dialysis consistent diet Further work up/management as per primary team Dose meds/antibiotics (if needed) for ESRD status. Avoid fleets enema/magnesium based laxatives. Thanks for allowing me to participate in care of your patient. Will follow patient with you. Please call if any Qs. d/w ICU team Dr Marvin Sapp Office: [phone] Subjective: Noted events overnight. Patients feels okay. Denies chest pain, palpitation, shortness of breath, leg swelling. All other negative Physical Examination: General Appearance: Comfortable, in no acute respiratory distress, co-operative . Vitals reviewed and noted as below Head; Atraumatic, normocephalic ENT: no ulcers no thrush. Tongue is midline. Oropharynx: no rash or ulcers. EYES: Pupils are equal, round and reactive to light accommodation. Eye muscles and extraocular movement intact. Sclera is anicteric. Neck; supple no lymphadenopathy, no thyromegaly or bruit Lungs: Normal respiratory rate/effort. Breath sounds bilateral equal and clear Heart: Normal rate. s1s2 normal. No rub or gallop. Extremities: no edema. No varicose veins Neurological: Patient is awake alert but not much communciative Skin: Warm and dry. Normal turgor. No rash. Palpitation: Normal elasticity for age Abdomen: Abdomen is soft. Bowel sounds +. There is no abdominal tenderness, no guarding/rigidity or organomegaly. has left colostomy Psych: unable MSK: no joint tenderness or swelling. Digits and nails normal, no deformity : kidney or bladder not palpable Access: permacath Labs/imaging reviewed. Past medical history, past surgical history, family history, social history, allergy reviewed and noted as below Family Hx: no hx of CKD. Non contributory Objective - Vital Signs/Intake and Output Vital Signs (last 24 hours): Temp Pulse Resp BP Pulse Ox 98.6 F 99 H 10 L 129/63 100 11/11/17 08:00 11/11/17 10:00 11/11/17 10:00 11/11/17 10:00 11/11/17 10:00 Intake and Output: 11/11/17 11/11/17 06:59 18:59 Intake Total 775 100 Output Total 120 Balance 655 100 - Medications Medications: Current Medications Epoetin Gonzalo (Procrit) 5,000 unit IV F [facility] Last Admin: 11/10/17 14:02 Dose: 5,000 unit Fentanyl (Duragesic) 1 patch TD Q3D [facility] PRN Reason: Protocol Last Admin: 11/11/17 13:42 Dose: 1 patch Heparin Sodium (Porcine) (Heparin) 5,000 units SC Q8 [facility] PRN Reason: Protocol Last Admin: 11/11/17 09:41 Dose: 5,000 units Piperacillin Sod/Tazobactam (Sod 2.25 gm/ Sodium Chloride) 100 mls @ 100 mls/ hr IVPB Q8 [facility] PRN Reason: Protocol Last Admin: 11/11/17 09:37 Dose: 100 mls/hr Multivitamins/Vitamin C 10 ml/Chromium/Copper/Manganese/Zinc 3 ml/ Amino Acids 1,013 mls @ 83 mls/hr IV .[id number] ONE Stop: 11/11/17 22:27 Last Admin: 11/11/17 11:20 Dose: 83 mls/hr Amino Acids (Clinimix 4.25%-25% 1000 Ml) 1,000 mls @ 83 mls/hr IV .Q12H3M ONE Stop: 11/12/17 11:02 Insulin Human Regular (Humulin R) 0 units SC ACCU-CHECK [facility] PRN Reason: Protocol Last Admin: 11/11/17 06:42 Dose: Not Given Ondansetron HCl (Zofran Inj) 4 mg IVP Q4 PRN PRN Reason: Nausea/Vomiting Pantoprazole Sodium (Protonix Inj) 40 mg IVP Q12 [facility] Silver Sulfadiazine (Silvadene 1% 50 Gm) 0 applic TOP BID [facility] Last Admin: 11/11/17 09:37 Dose: 1 applic - Labs Labs: 11/11/17 05:00 11/11/17 05:00 PT 12.7 Seconds (9.8-13.1) 11/10/17 16:14 INR 1.1 (0.9-1.2) 11/10/17 16:14 APTT 39.3 Seconds (25.6-37.1) H D 11/10/17 16:14
[2017-11-12] MEDS ORDERED: Morphine 4 MG/ML VIAL IVP STA (04:02)
[2017-11-12 05:40] LABS: HEMOGLOBIN 9.3 g/dL (12.0-16.0); MEAN CELL VOLUME 89.2 fl (81.0-99.0); MEAN CORPUSCULAR HEMOGLOBIN 28.8 pg (27.0-31.0); MEAN CORPUSCULAR HGB CONC 32.3 g/dL (33.0-37.0); RBC 3.23 Mil/uL (3.80-5.20); RED CELL DISTRIBUTION WIDTH 18.7 % (11.5-14.5); WHITE BLOOD COUNT 14.1 K/uL (4.8-10.8)
[2017-11-12 05:47] LABS: CALCIUM 7.9 mg/dL (8.4-10.2)
[2017-11-12] MEDS: Insulin Regular 100 units/ml SC SCH ×5 (06:49→22:17)
--- NOTE | 2017-11-12 07:22 | CP.PCM.PN ---
Subjective - Date & Time of Evaluation Date of Evaluation: 11/12/17 Time of Evaluation: 07:20 - Subjective Subjective: Surgery Pt seen and examined. No acute events overnight. Off pressors. C/O pain. Dressing changed. Denies Fevers, chills, nausea, diarrhea. No output from ostoma. KITA draining. Objective - Vital Signs/Intake and Output Vital Signs (last 24 hours): Temp Pulse Resp BP Pulse Ox 98.6 F 98 H 10 L 97/59 L 100 11/12/17 04:00 11/12/17 06:00 11/12/17 06:00 11/12/17 06:00 11/12/17 06:00 Intake and Output: 11/12/17 11/12/17 06:59 18:59 Intake Total 1096 Output Total 170 Balance 926 - Medications Medications: Current Medications Epoetin Gonzalo (Procrit) 5,000 unit IV MWF [facility] Last Admin: 11/10/17 14:02 Dose: 5,000 unit Fentanyl (Duragesic) 1 patch TD Q3D [facility] PRN Reason: Protocol Last Admin: 11/11/17 13:42 Dose: 1 patch Heparin Sodium (Porcine) (Heparin) 5,000 units SC Q8 [facility] PRN Reason: Protocol Last Admin: 11/12/17 00:07 Dose: 5,000 units Piperacillin Sod/Tazobactam (Sod 2.25 gm/ Sodium Chloride) 100 mls @ 100 mls/ hr IVPB Q8 [facility] PRN Reason: Protocol Last Admin: 11/12/17 00:06 Dose: 100 mls/hr Amino Acids (Clinimix 4.25%-25% 1000 Ml) 1,000 mls @ 83 mls/hr IV .Q12H3M ONE Stop: 11/12/17 11:02 Last Admin: 11/12/17 00:06 Dose: 83 mls/hr Insulin Human Regular (Humulin R) 0 units SC ACCU-CHECK [facility] PRN Reason: Protocol Last Admin: 11/12/17 06:50 Dose: 8 units Ondansetron HCl (Zofran Inj) 4 mg IVP Q4 PRN PRN Reason: Nausea/Vomiting Pantoprazole Sodium (Protonix Inj) 40 mg IVP Q12 [facility] Last Admin: 11/11/17 22:50 Dose: 40 mg Silver Sulfadiazine (Silvadene 1% 50 Gm) 0 applic TOP BID [facility] Last Admin: 11/11/17 17:39 Dose: 1 applic - Labs Labs: 11/12/17 04:10 11/12/17 04:10 PT 12.7 Seconds (9.8-13.1) 11/10/17 16:14 INR 1.1 (0.9-1.2) 11/10/17 16:14 APTT 39.3 Seconds (25.6-37.1) H D 11/10/17 16:14 - Constitutional Appears: No Acute Distress - Head Exam Head Exam: ATRAUMATIC, NORMAL INSPECTION, NORMOCEPHALIC - Eye Exam Eye Exam: EOMI, Normal appearance, PERRL Pupil Exam: NORMAL ACCOMODATION, PERRL - ENT Exam ENT Exam: Mucous Membranes Moist, Normal Exam - Neck Exam Neck Exam: Full ROM, Normal Inspection. absent: Lymphadenopathy - Respiratory Exam Respiratory Exam: Clear to Ausculation Bilateral, NORMAL BREATHING PATTERN - Cardiovascular Exam Cardiovascular Exam: REGULAR RHYTHM, +S1, +S2. absent: Murmur - GI/Abdominal Exam GI & Abdominal Exam: Soft, Tenderness, Normal Bowel Sounds. absent: Distended, Firm, Guarding, Rigid, Mass, Rebound Additional comments: Stoma in place. Gas / small amount of fluid in bag. Retention sutures in place. Packing inplace. - Exam Exam: NORMAL INSPECTION - Extremities Exam Extremities Exam: Normal Inspection - Back Exam Back Exam: NORMAL INSPECTION - Neurological Exam Neurological Exam: Alert, Awake, Oriented x3 - Psychiatric Exam Psychiatric exam: Normal Affect, Normal Mood - Skin Skin Exam: Erythema, Warm. absent: Intact Assessment and Plan - Assessment and Plan (Free Text) Assessment: 67F w/ lower GI bleed 2/2 ischemic colitis in descending and sigmoid colon s/p L hemicolectomy POD 3 Plan: -CLD -Start TPN -DVT ppx -Strict I&O's -Encourage Incentive spirometer use -OOB to chair -Will D/w Dr. Dia
[2017-11-12] MEDS: Silver Sulfadiazine 1% CREAM (50 gm) TOP SCH ×2 (08:31→16:11)
--- NOTE | 2017-11-12 10:31 | CP.PCM.PN ---
Subjective - Date & Time of Evaluation Date of Evaluation: 11/12/17 Time of Evaluation: 10:34 - Subjective Subjective: Patient somehow sleepy . No acute distress She appeared to be comfortable Blood pressure in the low normal around 110s systolic Vital signs stable otherwise Objective - Vital Signs/Intake and Output Vital Signs (last 24 hours): Temp Pulse Resp BP Pulse Ox 99.1 F 106 H 18 111/59 L 100 11/12/17 07:39 11/12/17 10:00 11/12/17 10:00 11/12/17 10:00 11/12/17 10:00 Intake and Output: 11/12/17 11/12/17 06:59 18:59 Intake Total 1096 349 Output Total 170 Balance 926 349 - Medications Medications: Current Medications Epoetin Gonzalo (Procrit) 5,000 unit IV MWF [facility] Last Admin: 11/10/17 14:02 Dose: 5,000 unit Fentanyl (Duragesic) 1 patch TD Q3D [facility] PRN Reason: Protocol Last Admin: 11/11/17 13:42 Dose: 1 patch Heparin Sodium (Porcine) (Heparin) 5,000 units SC Q8 [facility] PRN Reason: Protocol Last Admin: 11/12/17 08:30 Dose: 5,000 units Piperacillin Sod/Tazobactam (Sod 2.25 gm/ Sodium Chloride) 100 mls @ 100 mls/ hr IVPB Q8 [facility] PRN Reason: Protocol Last Admin: 11/12/17 08:31 Dose: 100 mls/hr Amino Acids (Clinimix 4.25%-25% 1000 Ml) 1,000 mls @ 83 mls/hr IV .Q12H3M ONE Stop: 11/12/17 11:02 Last Admin: 11/12/17 00:06 Dose: 83 mls/hr Insulin Human Regular (Humulin R) 0 units SC ACCU-CHECK [facility] PRN Reason: Protocol Last Admin: 11/12/17 06:50 Dose: 8 units Ondansetron HCl (Zofran Inj) 4 mg IVP Q4 PRN PRN Reason: Nausea/Vomiting Pantoprazole Sodium (Protonix Inj) 40 mg IVP Q12 [facility] Last Admin: 11/12/17 08:31 Dose: 40 mg Silver Sulfadiazine (Silvadene 1% 50 Gm) 0 applic TOP BID [facility] Last Admin: 11/12/17 08:31 Dose: 1 applic - Labs Labs: 11/12/17 04:10 11/12/17 04:10 PT 12.7 Seconds (9.8-13.1) 11/10/17 16:14 INR 1.1 (0.9-1.2) 11/10/17 16:14 APTT 39.3 Seconds (25.6-37.1) H D 11/10/17 16:14 - Constitutional Appears: No Acute Distress - ENT Exam ENT Exam: Mucous Membranes Moist - Neck Exam Neck Exam: absent: Lymphadenopathy - Respiratory Exam Respiratory Exam: NORMAL BREATHING PATTERN. absent: Chest Wall Tenderness - Cardiovascular Exam Cardiovascular Exam: absent: Gallop, JVD, Rubs - GI/Abdominal Exam GI & Abdominal Exam: Guarding - Extremities Exam Extremities Exam: absent: Calf Tenderness - Back Exam Back Exam: absent: CVA tenderness (L), CVA tenderness (R) - Neurological Exam Neurological Exam: Altered - Skin Skin Exam: absent: Cyanosis Assessment and Plan (1) Colitis Status: Acute (2) ESRD (end stage renal disease) on dialysis Assessment & Plan: Patient with end stage renal disease on maintenance hemodialysis. Sunday. patient scheduled to have hemodialysis shortly as scheduled. Patient may need 25 % albumin to support blood pressure if needed. Anemia EPO on dialysis. active rectal bleeding ,patient was transfused ,multiple transfusion secondary to ischemic colitis which she has been diagnosed from previous hospitalization. Status post hemicolectomy on Sunday. Status post multiple blood transfusion Other diagnosis patient admitted with acute CVA for rehabilitation. Status post cardiac arrest Status post massive bleeding from AV fistula. History of hyperphosphatemia History of secondary hyperparathyroidism Diabetes Mellitus 67 yo female with multiple medical problems with history of new CVA with right MCA distribution that was initially admitted to [facility] acute rehab for PT/OT transferred and admitted to [facility] ICU for rectal bleed with hypovolemia and suspected sepsis. Her past medical history includes ESRD on dialysis, Type 2 DM, HTN, obesity, history of old CVA in 2011, atrial fibrillation, GI bleed with hemorrhagic shock at [facility]. During that time the patient had an episode of cardiac arrest and respiratory failure Status: Acute (3) Gastrointestinal hemorrhage Status: Acute (4) History of cardiac arrest Status: Acute (5) Ischemic colitis Status: Acute (6) Shock Status: Acute
--- NOTE | 2017-11-12 12:41 | CP.PCM.PN ---
Subjective - Date & Time of Evaluation Date of Evaluation: 11/12/17 Time of Evaluation: 12:41 - Subjective Subjective: ID Note- Pt. seen and examined today in ICU. awake . denies any fever s or chills. Objective - Vital Signs/Intake and Output Vital Signs (last 24 hours): Temp Pulse Resp BP Pulse Ox 99.7 F H 106 H 18 106/57 L 100 11/12/17 11:49 11/12/17 10:00 11/12/17 10:00 11/12/17 12:06 11/12/17 10:00 Intake and Output: 11/12/17 11/12/17 06:59 18:59 Intake Total 1096 615 Output Total 170 Balance 926 615 - Medications Medications: Current Medications Epoetin Gonzalo (Procrit) 5,000 unit IV MWF [facility] Last Admin: 11/10/17 14:02 Dose: 5,000 unit Fentanyl (Duragesic) 1 patch TD Q3D [facility] PRN Reason: Protocol Last Admin: 11/11/17 13:42 Dose: 1 patch Heparin Sodium (Porcine) (Heparin) 5,000 units SC Q8 [facility] PRN Reason: Protocol Last Admin: 11/12/17 08:30 Dose: 5,000 units Piperacillin Sod/Tazobactam (Sod 2.25 gm/ Sodium Chloride) 100 mls @ 100 mls/ hr IVPB Q8 [facility] PRN Reason: Protocol Last Admin: 11/12/17 08:31 Dose: 100 mls/hr Insulin Human Regular (Humulin R) 0 units SC ACCU-CHECK [facility] PRN Reason: Protocol Last Admin: 11/12/17 12:08 Dose: 8 units Ondansetron HCl (Zofran Inj) 4 mg IVP Q4 PRN PRN Reason: Nausea/Vomiting Pantoprazole Sodium (Protonix Inj) 40 mg IVP Q12 [facility] Last Admin: 11/12/17 08:31 Dose: 40 mg Silver Sulfadiazine (Silvadene 1% 50 Gm) 0 applic TOP BID [facility] Last Admin: 11/12/17 08:31 Dose: 1 applic - Labs Labs: 11/12/17 04:10 11/12/17 04:10 PT 12.7 Seconds (9.8-13.1) 11/10/17 16:14 INR 1.1 (0.9-1.2) 11/10/17 16:14 APTT 39.3 Seconds (25.6-37.1) H D 11/10/17 16:14 - Additional Findings Additional findings: - Constitutional Appears: Non-toxic, No Acute Distress, Chronically Ill - Head Exam Head Exam: ATRAUMATIC, NORMOCEPHALIC - Eye Exam Eye Exam: EOMI, Normal appearance, PERRL - ENT Exam ENT Exam: Mucous Membranes Dry, Normal Exam - Respiratory Exam Respiratory Exam: Clear to Ausculation Bilateral, NORMAL BREATHING PATTERN. - Cardiovascular Exam Cardiovascular Exam: S1S2 RRR - GI/Abdominal Exam GI & Abdominal Exam: Soft, Hypoactive Bowel Sounds. absent: Distended Additional comments: KITA drain to right mid abdomen Midline surgical incision with dressings in place clean and intact iliostomy to left mid abdomen appears pink and clean Laboratory Results - last 72 hr 11/07/17 11/09/17 11/09/17 16:05 14:15 15:39 WBC RBC Hgb Hct MCV MCH MCHC RDW Plt Count 72 L D PT INR APTT Sodium Potassium Chloride Carbon Dioxide Anion Gap BUN Creatinine Est GFR ( Amer) Est GFR (Non-Af Amer) POC Glucose (mg/dL) 96 Random Glucose Calcium Phosphorus Magnesium Triglycerides Crossmatch See Detail 11/09/17 11/09/17 11/10/17 18:22 21:39 06:25 WBC 19.5 H D RBC 4.01 Hgb 11.4 L Hct 35.5 MCV 88.5 MCH 28.5 MCHC 32.2 L RDW 18.6 H Plt Count 126 L D PT INR APTT Sodium Potassium Chloride Carbon Dioxide Anion Gap BUN Creatinine Est GFR ( Amer) Est GFR (Non-Af Amer) POC Glucose (mg/dL) 123 H 107 Random Glucose Calcium Phosphorus Magnesium Triglycerides Crossmatch 11/10/17 11/10/17 11/10/17 06:25 07:09 16:14 WBC RBC Hgb Hct MCV MCH MCHC RDW Plt Count PT 12.7 INR 1.1 APTT 39.3 H D Sodium 138 Potassium 4.1 Chloride 105 Carbon Dioxide 18 L Anion Gap 19 BUN 27 H Creatinine 4.5 H Est GFR ( Amer) 12 Est GFR (Non-Af Amer) 10 POC Glucose (mg/dL) 123 H Random Glucose 112 H Calcium 9.1 Phosphorus Magnesium Triglycerides Crossmatch 11/10/17 11/10/17 11/11/17 17:24 22:29 05:00 WBC 18.0 H RBC 3.18 L Hgb 9.2 L D Hct 28.0 L MCV 88.1 MCH 29.1 MCHC 33.0 RDW 18.3 H Plt Count 97 L D PT INR APTT Sodium Potassium Chloride Carbon Dioxide Anion Gap BUN Creatinine Est GFR ( Amer) Est GFR (Non-Af Amer) POC Glucose (mg/dL) 104 83 Random Glucose Calcium Phosphorus Magnesium Triglycerides Crossmatch 11/11/17 11/11/17 11/11/17 05:00 06:38 13:58 WBC RBC Hgb Hct MCV MCH MCHC RDW Plt Count PT INR APTT Sodium 136 Potassium 3.5 L Chloride 102 Carbon Dioxide 23 Anion Gap 15 BUN 20 H Creatinine 3.9 H Est GFR ( Amer) 14 Est GFR (Non-Af Amer) 11 POC Glucose (mg/dL) 71 193 H Random Glucose 73 Calcium 8.5 Phosphorus Magnesium Triglycerides Crossmatch 11/11/17 11/11/17 11/12/17 17:35 22:42 04:10 WBC 14.1 H RBC 3.23 L Hgb 9.3 L Hct 28.8 L MCV 89.2 MCH 28.8 MCHC 32.3 L RDW 18.7 H Plt Count 104 L PT INR APTT Sodium Potassium Chloride Carbon Dioxide Anion Gap BUN Creatinine Est GFR ( Amer) Est GFR (Non-Af Amer) POC Glucose (mg/dL) 282 H 391 H Random Glucose Calcium Phosphorus Magnesium Triglycerides Crossmatch 11/12/17 11/12/17 04:10 06:38 WBC RBC Hgb Hct MCV MCH MCHC RDW Plt Count PT INR APTT Sodium 134 Potassium 3.4 L Chloride 100 Carbon Dioxide 24 Anion Gap 13 BUN 29 H Creatinine 4.4 H Est GFR ( Amer) 12 Est GFR (Non-Af Amer) 10 POC Glucose (mg/dL) 357 H Random Glucose 360 H Calcium 7.9 L Phosphorus 3.1 Magnesium 1.7 Triglycerides 74 Crossmatch Microbiology 11/10/17 16:14 Blood-Venous Blood Culture - Preliminary NO GROWTH AFTER 24 HOURS 11/04/17 11:09 Blood Blood Culture - Final NO GROWTH AFTER 5 DAYS 11/04/17 17:59 Urine,Poe Urine Culture - Final No Growth (<1,000 CFU/ML) 11/04/17 18:00 Nose MRSA Culture (Admit) - Final MRSA NOT DETECTED Assessment and Plan (1) ESRD (end stage renal disease) on dialysis Status: Acute (2) Ischemic colitis Status: Acute (3) History of cardiac arrest Status: Acute (4) Gastrointestinal hemorrhage Status: Acute - Assessment and Plan (Free Text) Assessment: A/P- Patient is a 67 year old female with past medical history includes ESRD on dialysis, Type 2 DM, HTN, obesity, history of old CVA in 2011, atrial fibrillation, GI bleed with hemorrhagic shock just last week at [facility]. During that time the patient had an episode of cardiac arrest and respiratory failure and required intubation and hemodynamic monitoring in the ICU due to hypotensive shock from extravasation. She developed ischemic colitis that was diagnosed with colonoscopy and transferred to [facility] acute rehab for PT/ OT. She was transferred to [facility] ICU due to rectal bleed with hypovolemia and suspected sepsis.copy that showed colonic diverticulosis, internal hemorrhoids and diffuse severe inflammation with ulcerations in the entire colon, severe ischemic colitis. On 11/04 she started to have worsening of rectal bleed , with blood clots and hypotension , fever Tmax 102 and minimal lower abdominal tenderness. Full septic panel was ordered , Cipro and Flagyl given , IVF ( bolus started ). Patient was then sent to [facility] ED then to ICU for rule out sepsis and GI bleed. pt. s/p partial colectomy with ostomy and KITA drain in place POD #3 prior to he surgery had been afebrile and normal wbc count was on empiric ceftriaxone and flagy afebrile but has rise in WBc ( new) could be reactive in nature or inflamamtory , decreasing leukocytosis today stool c.diff- neg blood cx- neg urine cx- neg plan- continue with empiric zosyn pending repeat cx results, day #3 today. check lactate level as well. all labs and imaging reviewed. ICU time 45 min.
[2017-11-12] MEDS ORDERED: Amino Acids/Dextrose 1,000 ML IV ONE (13:15)
--- NOTE | 2017-11-12 14:39 | PCM.ANESB5 ---
Transverse Abdominis Block - Transverse Abdominis Plane Date of Procedure: 11/09/17 Anesthesiologist: Joel Pre-Procedure Diagnosis: Ischemic colitis Post-Procedure Diagnosis: Same Procedure Performed: Transverse Abdominis Plane Nerve Block Left, Transverse Abdominis Plane Nerve Block Right - Procedure Transverse Abdominis Plane Nerve Block: The procedure was explained to the patient that it is for post-operative pain management and would be performed after surgery. Consent was obtained prior to surgery after a thorough discussion with the patient regarding the benefits and possible complications of transverse abdominis plane block. After the surgery had concluded and before the patient emerged from general anesthesia, time-out was held with the circulating nurse to re-confirm the appropriate block. With the patient in supine position, the ultrasound probe was placed transverse to the abdominal wall at the mid-axillary line above the iliac crest of the appropriate side. The skin, subcutaneous tissue, fat, external oblique muscle, internal oblique muscle, and the transverse abdominis muscle were identified. The general area of the block site was then prepped with Betadine three times. At this point, a # 21-gauge Stimuplex 4-inch needle was inserted posterior to and in plane with the ultrasound probe and directed anteriorly. Needle was advanced under direct ultrasound visualization until it reached the plane between the internal oblique and transverse abdominis muscles. After appropriate placement, 2mL of local anesthetic solution was injected. When the transverse abdominis plane was observed expanding in an ellipsoid way, the rest of the solution was slowly injected. A total of __25____ mL of __0.25___ % ___ bupivicaine was used for this block. The needle was then removed and sterile dressing was applied. Similarly, the same procedure was performed on the other side using the same medications. The patient had stable vital signs throughout and had no untoward complications after emergence from general anesthesia in the recovery room.
--- NOTE | 2017-11-12 14:49 | CP.PCM.PN ---
Subjective - Date & Time of Evaluation Date of Evaluation: 11/12/17 Time of Evaluation: 08:00 - Subjective Subjective: Patient seen and examined bedside. No acute issues overnight. Complains of some abdominal pain and states she is hungry.Appears sleepy and tired today Hemodynamically stable, afebrile Surgical wound healing well.Stoma appears healthy with minimal serosanguinous output . KITA drain with 170 ml output last 12 hours BP 97/59 HR 98 No bleeding WBC trending down from 18 K TO 14 K Objective - Vital Signs/Intake and Output Vital Signs (last 24 hours): Temp Pulse Resp BP Pulse Ox 99.7 F H 90 16 111/55 L 100 11/12/17 11:49 11/12/17 14:00 11/12/17 14:00 11/12/17 14:00 11/12/17 14:00 Intake and Output: 11/12/17 11/12/17 06:59 18:59 Intake Total 1096 881 Output Total 170 Balance 926 881 - Medications Medications: Current Medications Epoetin Gonzalo (Procrit) 5,000 unit IV MWF [facility] Last Admin: 11/10/17 14:02 Dose: 5,000 unit Fentanyl (Duragesic) 1 patch TD Q3D [facility] PRN Reason: Protocol Last Admin: 11/11/17 13:42 Dose: 1 patch Heparin Sodium (Porcine) (Heparin) 5,000 units SC Q8 [facility] PRN Reason: Protocol Last Admin: 11/12/17 08:30 Dose: 5,000 units Piperacillin Sod/Tazobactam (Sod 2.25 gm/ Sodium Chloride) 100 mls @ 100 mls/ hr IVPB Q8 [facility] PRN Reason: Protocol Last Admin: 11/12/17 08:31 Dose: 100 mls/hr Amino Acids (Clinimix 4.25%-25% 1000 Ml) 1,000 mls @ 50 mls/hr IV .Q20H ONE Stop: 11/13/17 09:14 Insulin Human Regular (Humulin R) 0 units SC ACCU-CHECK [facility] PRN Reason: Protocol Last Admin: 11/12/17 12:08 Dose: 8 units Ondansetron HCl (Zofran Inj) 4 mg IVP Q4 PRN PRN Reason: Nausea/Vomiting Pantoprazole Sodium (Protonix Inj) 40 mg IVP Q12 [facility] Last Admin: 11/12/17 08:31 Dose: 40 mg Silver Sulfadiazine (Silvadene 1% 50 Gm) 0 applic TOP BID [facility] Last Admin: 11/12/17 08:31 Dose: 1 applic - Labs Labs: 11/12/17 04:10 11/12/17 04:10 PT 12.7 Seconds (9.8-13.1) 11/10/17 16:14 INR 1.1 (0.9-1.2) 11/10/17 16:14 APTT 39.3 Seconds (25.6-37.1) H D 11/10/17 16:14 - Constitutional Appears: No Acute Distress, Chronically Ill, Other (Sleepy, obese) - Head Exam Head Exam: ATRAUMATIC, NORMOCEPHALIC - Eye Exam Eye Exam: PERRL - ENT Exam ENT Exam: Mucous Membranes Dry - Neck Exam Neck Exam: Normal Inspection - Respiratory Exam Respiratory Exam: Clear to Ausculation Bilateral, NORMAL BREATHING PATTERN. absent: Wheezes, Respiratory Distress - Cardiovascular Exam Cardiovascular Exam: REGULAR RHYTHM, +S1, +S2. absent: JVD - GI/Abdominal Exam GI & Abdominal Exam: Hypoactive Bowel Sounds Additional comments: midline surgical incision healing well iliostomy to left mid quadrant KITA drain with serosanguinous output - Rectal Exam Rectal Exam: Deferred - Extremities Exam Extremities Exam: Full ROM, Normal Capillary Refill, Normal Inspection Additional comments: right hand dorsal aspect wound 3x 3 cm - Neurological Exam Neurological Exam: Alert, Awake, CN II-XII Intact, Oriented x3 - Psychiatric Exam Psychiatric exam: Flat Affect - Skin Skin Exam: Dry, Warm Assessment and Plan - Assessment and Plan (Free Text) Assessment: 67 yo female with multiple medical problems like ESRD on dialysis, Type 2 DM, HTN, obesity, history of old CVA in 2011, atrial fibrillation,with 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 She also had a cardiac arrest and respiratory failure requiring intubation . After improving she was transferred to acute rehab for physical therapy where she continued to have some episodes of GI bleed. On 11/04 she started to have worsening of rectal bleed , with blood clots per rectum hypotension , fever Tmax 102 and some lower abdominal tenderness. Full septic panel was ordered , Cipro and Flagyl given , IVF ( bolus started ). Patient was then admitted to ICU with diagnosis of hypovolemic shock and GI bleed and rule out sepsis . Her colonoscopy performed at [facility] had shown : diffuse severe inflammation with ulcerations in the entire colon, severe ischemic colitis mucosal ulcerations up to 40cm dinorah. GI ,surgery and ID consulted Underwent left colon resection with iliostomy on 11/09 . Transfused total 6 unit PRBC . At present in ICU , hemodynamically stable. With minimal serosanguinous output from iliostomy 1. Hypovolemic shock most secondary to GI bleed-- resolved off Levophed drip since 11/05 s/p 6 unit PRBC transfusion Continue IVF hydration and antibiotics on TPN since 11/11 as per surgery start clear liquid diet 2.Recurrent lower GI bleed due to Ischemic colitis s/p left colon resection with iliostomy 11/09 Complains of pain . On Fentanyl patch and Morphine PRN s/p 6 unit PRBC transfusion . Received DDAVP and FFP Minimal output from stoma overnight. Will start Liquid diet today Promote ambulation and out of bed to chair Contine TPN and monitor electrolytes Wound care as per surgery continue IV antibiotics, pain management 3. Acute on chronic anemia-stable GI blood loss on top of chronic kidney disease anemia s/p 6 unit PRBC transfusion continue epopoetin 4. History of recent cardiac arrest/respiratory arrest 5. ESRD on Dialysis MWF Nephro consulted continue HD as scheduled 6. 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 Paroxysmal Afib patient is in and out SR and afib on monitor, rate controlled continue to monitor closely no anticoag due to rectal bleed 8. DM Type II accuchecks and insulin coverage Pt off meds as she is NPO on TPN monitor electrolytes , accuchecks 9. DVT prophylaxis SCDs started Heparin for DVt prophylaxis as per surgery
--- NOTE | 2017-11-12 16:36 | CP.CCUPN ---
CCU Subjective - Physician Review Events Since Last Encounter (Free Text): 11/12/17 16:31 no complaints. CCU Objective - Vital Signs / Intake & Output Vital Signs (Last 4 hours): Vital Signs Temp Pulse Resp BP Pulse Ox 11/12/17 16:00 99.6 F 103 H 14 90/62 L 100 11/12/17 14:00 90 16 111/55 L 100 Intake and Output (Last 8hrs): Intake & Output 11/12/17 11/12/17 11/12/17 06:59 14:59 22:59 Intake Total 664 881 133 Output Total 100 Balance 564 881 133 Intake: IV 581 133 Intake, Piggyback 100 Oral 200 TPN/PPN 664 Output: Drainage 100 Right Lower Abdomen 100 - Physical Exam Head: Positive for: Atraumatic, Normocephalic Pupils: Positive for: PERRL Extroacular Muscles: Positive for: EOMI Conjunctiva: Positive for: Normal. Negative for: Injected, Icteric Mouth: Positive for: Moist Mucous Membranes Nose (Internal): Positive for: Normal Inspection Neck: Positive for: Normal Range of Motion, Trachea Midline. Negative for: Meningeal Signs, MIDLINE TENDERNESS, Paraspinal Tenderness, JVD, Lymphadenopathy , Bruit, Other Respiratory/Chest: Positive for: Clear to Auscultation, Good Air Exchange. Negative for: Respiratory Distress, Accessory Muscle Use Cardiovascular: Positive for: Regular Rate and Rhythm, Normal S1, S2, Peripheal Pulses Present. Negative for: Murmurs, Irregular Rhythm Upper Extremity: Positive for: Normal Inspection Lower Extremity: Positive for: Normal Inspection Neurological: Positive for: GCS=15, CN II-XII Intact, Speech Normal, Motor Func Grossly Intact, Normal Sensory Function - Medications Active Medications: Active Medications Generic Name Dose Route Start Last Admin Trade Name Freq PRN Reason Stop Dose Admin Epoetin Gonzalo 5,000 unit 11/07/17 09:00 11/10/17 14:02 Procrit IV 5,000 unit MWF [facility] Administration Fentanyl 1 patch 11/11/17 13:30 11/11/17 13:42 Duragesic TD 1 patch Q3D [facility] Administration Protocol Heparin Sodium (Porcine) 5,000 units 11/11/17 09:00 11/12/17 16:10 Heparin SC 5,000 units Q8 [facility] Administration Protocol Piperacillin Sod/Tazobactam 100 mls @ 100 mls/hr 11/10/17 17:00 11/12/17 16: 11 Sod 2.25 gm/ Sodium Chloride IVPB Not Given Q8 [facility] Protocol Amino Acids 1,000 mls @ 50 mls/hr 11/12/17 13:15 11/12/17 14:54 Clinimix 4.25%-25% 1000 Ml IV 11/13/17 09:14 50 mls/hr .Q20H ONE Administration Insulin Human Regular 0 units 11/04/17 17:00 11/12/17 16:10 Humulin R SC 4 units ACCU-CHECK [facility] Administration Protocol Ondansetron HCl 4 mg 11/09/17 12:34 Zofran Inj IVP Q4 PRN Nausea/Vomiting Pantoprazole Sodium 40 mg 11/11/17 21:00 11/12/17 08:31 Protonix Inj IVP 40 mg Q12 [facility] Administration Silver Sulfadiazine 0 applic 11/05/17 17:00 11/12/17 16:11 Silvadene 1% 50 Gm TOP 1 applic BID [facility] Administration - Patient Studies Lab Studies: Microbiology Studies 11/10/17 16:14 Blood Culture - Preliminary Blood-Venous NO GROWTH AFTER 24 HOURS Lab Studies 11/12/17 11/12/17 11/12/17 Range/Units 16:02 10:48 06:38 WBC (4.8-10.8) K/uL RBC (3.80-5.20) Mil/uL Hgb (12.0-16.0) g/dL Hct (34.0-47.0) % MCV (81.0-99.0) fl MCH (27.0-31.0) pg MCHC (33.0-37.0) g/dL RDW (11.5-14.5) % Plt Count (130-400) K/uL Sodium (132-148) mmol/l Potassium (3.6-5.0) MMOL/L Chloride (98-107) mmol/L Carbon Dioxide (22-30) mmol/L Anion Gap (10-20) BUN (7-17) mg/dl Creatinine (0.7-1.2) mg/dl Est GFR ( Amer) Est GFR (Non-Af Amer) POC Glucose (mg/dL) 277 H 372 H 357 H (65-110) mg/dL Random Glucose (65-105) mg/dL Calcium (8.4-10.2) mg/dL Phosphorus (2.5-4.5) mg/dl Magnesium (1.6-2.3) MG/DL Triglycerides (0-149) mg/DL 11/12/17 11/12/17 11/11/17 Range/Units 04:10 04:10 22:42 WBC 14.1 H (4.8-10.8) K/uL RBC 3.23 L (3.80-5.20) Mil/uL Hgb 9.3 L (12.0-16.0) g/dL Hct 28.8 L (34.0-47.0) % MCV 89.2 (81.0-99.0) fl MCH 28.8 (27.0-31.0) pg MCHC 32.3 L (33.0-37.0) g/dL RDW 18.7 H (11.5-14.5) % Plt Count 104 L (130-400) K/uL Sodium 134 (132-148) mmol/l Potassium 3.4 L (3.6-5.0) MMOL/L Chloride 100 (98-107) mmol/L Carbon Dioxide 24 (22-30) mmol/L Anion Gap 13 (10-20) BUN 29 H (7-17) mg/dl Creatinine 4.4 H (0.7-1.2) mg/dl Est GFR ( Amer) 12 Est GFR (Non-Af Amer) 10 POC Glucose (mg/dL) 391 H (65-110) mg/dL Random Glucose 360 H (65-105) mg/dL Calcium 7.9 L (8.4-10.2) mg/dL Phosphorus 3.1 (2.5-4.5) mg/dl Magnesium 1.7 (1.6-2.3) MG/DL Triglycerides 74 (0-149) mg/DL 11/11/17 11/11/17 Range/Units 17:35 13:58 WBC (4.8-10.8) K/uL RBC (3.80-5.20) Mil/uL Hgb (12.0-16.0) g/dL Hct (34.0-47.0) % MCV (81.0-99.0) fl MCH (27.0-31.0) pg MCHC (33.0-37.0) g/dL RDW (11.5-14.5) % Plt Count (130-400) K/uL Sodium (132-148) mmol/l Potassium (3.6-5.0) MMOL/L Chloride (98-107) mmol/L Carbon Dioxide (22-30) mmol/L Anion Gap (10-20) BUN (7-17) mg/dl Creatinine (0.7-1.2) mg/dl Est GFR ( Amer) Est GFR (Non-Af Amer) POC Glucose (mg/dL) 282 H 193 H (65-110) mg/dL Random Glucose (65-105) mg/dL Calcium (8.4-10.2) mg/dL Phosphorus (2.5-4.5) mg/dl Magnesium (1.6-2.3) MG/DL Triglycerides (0-149) mg/DL Laboratory Results - last 24 hr 11/11/17 11/11/17 11/11/17 13:58 17:35 22:42 WBC RBC Hgb Hct MCV MCH MCHC RDW Plt Count Sodium Potassium Chloride Carbon Dioxide Anion Gap BUN Creatinine Est GFR ( Amer) Est GFR (Non-Af Amer) POC Glucose (mg/dL) 193 H 282 H 391 H Random Glucose Calcium Phosphorus Magnesium Triglycerides 11/12/17 11/12/17 11/12/17 04:10 04:10 06:38 WBC 14.1 H RBC 3.23 L Hgb 9.3 L Hct 28.8 L MCV 89.2 MCH 28.8 MCHC 32.3 L RDW 18.7 H Plt Count 104 L Sodium 134 Potassium 3.4 L Chloride 100 Carbon Dioxide 24 Anion Gap 13 BUN 29 H Creatinine 4.4 H Est GFR ( Amer) 12 Est GFR (Non-Af Amer) 10 POC Glucose (mg/dL) 357 H Random Glucose 360 H Calcium 7.9 L Phosphorus 3.1 Magnesium 1.7 Triglycerides 74 11/12/17 11/12/17 10:48 16:02 WBC RBC Hgb Hct MCV MCH MCHC RDW Plt Count Sodium Potassium Chloride Carbon Dioxide Anion Gap BUN Creatinine Est GFR ( Amer) Est GFR (Non-Af Amer) POC Glucose (mg/dL) 372 H 277 H Random Glucose Calcium Phosphorus Magnesium Triglycerides Fingerstick Blood Sugar Results: 277 Review of Systems - Review of Systems All systems: reviewed and no additional remarkable complaints except (no complaints) Critical Care Progress Note - Nutrition Nutrition: Nutrition Category Date Time Status Liquid Diet [DIET] Diets 11/12/17 Lunch Active Assessment/Plan (1) Ischemic colitis Assessment and plan: 67yo F. PMHx ESRD on HD. recent bleeding from fistula c/b hemorrhagic shock, ischemic stroke, ischemic colitis eventually requiring left hemicolectomy with colostomy. Neuro: alert and oriented x 3, pain contolled with fentanyl patch. Pulm: no acute issues, breathing spontaneously on room air. CV: hemodynamically stable Hem: anemia of chronic disease, continue procrit Renal: no acute issues Endo: no acutes issues GI: starting clear liquid diet today. ID: sepsis improving, continue Zosyn. DVT proph - heparin sq GI proph - protonix hendricks for strict I/O's during acute illness Code status - full code Critical Care Time spent 35 minutes Multi-disciplinary rounds were performed with house staff, nursing, speech therapy, respiratory therapy, pharmacy and nutrition with integrated input from the primary team/attending and other consulting services. The documented time is cumulative and includes review of patient data/exams/labs/chart review and examination of the patient on rounds and throughout the day; time is exclusive of any procedures or teaching time. Current Visit: Yes Status: Acute
[2017-11-12] MEDS ORDERED: Albumin Human 25% (12.5 gm/50 ml) IV PRN (16:45)
[2017-11-12] MEDS ORDERED: Morphine 4 MG/ML VIAL ONE (22:40)
[2017-11-12] MEDS ORDERED: Morphine 4 MG/ML VIAL IVP ONE (22:45)
[2017-11-13 06:10] LABS: HEMOGLOBIN 8.9 g/dL (12.0-16.0); MEAN CELL VOLUME 89.5 fl (81.0-99.0); MEAN CORPUSCULAR HEMOGLOBIN 28.9 pg (27.0-31.0); MEAN CORPUSCULAR HGB CONC 32.3 g/dL (33.0-37.0); RBC 3.07 Mil/uL (3.80-5.20); RED CELL DISTRIBUTION WIDTH 18.2 % (11.5-14.5)
[2017-11-13] MEDS: Insulin Regular 100 units/ml SC SCH ×4 (07:28→22:40)
[2017-11-13] MEDS: Silver Sulfadiazine 1% CREAM (50 gm) TOP SCH (08:33)
--- NOTE | 2017-11-13 09:33 | CP.PCM.PN ---
Subjective - Date & Time of Evaluation Date of Evaluation: 11/13/17 Time of Evaluation: 09:31 - Subjective Subjective: Patient and bed awake intermittently. She feels okay No vomiting reported Abdomen discomfort because of the operation Objective - Vital Signs/Intake and Output Vital Signs (last 24 hours): Temp Pulse Resp BP Pulse Ox 99.6 F 105 H 11 L 98/59 L 99 11/13/17 08:00 11/13/17 08:00 11/13/17 08:00 11/13/17 08:00 11/13/17 08:00 Intake and Output: 11/13/17 11/13/17 06:59 18:59 Intake Total 600 50 Output Total 50 Balance 550 50 - Medications Medications: Current Medications Albumin Human (Albumin Human 25% (12.5 Gm/50 Ml)) 12.5 gm IV Q1H PRN PRN Reason: Diastolic blood pressure Epoetin Gonzalo (Procrit) 5,000 unit IV MWF [facility] Last Admin: 11/10/17 14:02 Dose: 5,000 unit Fentanyl (Duragesic) 1 patch TD Q3D [facility] PRN Reason: Protocol Last Admin: 11/11/17 13:42 Dose: 1 patch Heparin Sodium (Porcine) (Heparin) 5,000 units SC Q8 [facility] PRN Reason: Protocol Last Admin: 11/13/17 08:32 Dose: 5,000 units Piperacillin Sod/Tazobactam (Sod 2.25 gm/ Sodium Chloride) 100 mls @ 100 mls/ hr IVPB Q8 [facility] PRN Reason: Protocol Last Admin: 11/13/17 08:33 Dose: 100 mls/hr Insulin Human Regular (Humulin R) 0 units SC ACCU-CHECK [facility] PRN Reason: Protocol Last Admin: 11/13/17 07:28 Dose: 3 units Ondansetron HCl (Zofran Inj) 4 mg IVP Q4 PRN PRN Reason: Nausea/Vomiting Pantoprazole Sodium (Protonix Inj) 40 mg IVP DAILY [facility] Last Admin: 11/13/17 08:32 Dose: 40 mg Silver Sulfadiazine (Silvadene 1% 50 Gm) 0 applic TOP BID [facility] Last Admin: 11/13/17 08:33 Dose: 1 applic - Labs Labs: 11/13/17 05:55 11/13/17 05:55 PT 12.7 Seconds (9.8-13.1) 11/10/17 16:14 INR 1.1 (0.9-1.2) 11/10/17 16:14 APTT 39.3 Seconds (25.6-37.1) H D 11/10/17 16:14 - Constitutional Appears: No Acute Distress - ENT Exam ENT Exam: Mucous Membranes Moist - Neck Exam Neck Exam: absent: Lymphadenopathy - Respiratory Exam Respiratory Exam: absent: Chest Wall Tenderness - Cardiovascular Exam Cardiovascular Exam: Irregular Rhythm. absent: Gallop, Rubs - GI/Abdominal Exam GI & Abdominal Exam: Guarding, Normal Bowel Sounds - Extremities Exam Extremities Exam: absent: Calf Tenderness - Back Exam Back Exam: absent: CVA tenderness (L), CVA tenderness (R) - Neurological Exam Neurological Exam: Alert - Psychiatric Exam Psychiatric exam: Normal Affect - Skin Skin Exam: absent: Cyanosis Assessment and Plan (1) Colitis Status: Acute (2) ESRD (end stage renal disease) on dialysis Assessment & Plan: Patient with end stage renal disease on maintenance hemodialysis. Sunday. patient given dialysis yesterday and tolerated with difficulty. She has to be given 25% albumin and ultrafiltration done only about 500 mL because of the low blood pressure.continue monitoring. Patient still have low-grade fever. Anemia EPO on dialysis. active rectal bleeding ,patient was transfused ,multiple transfusion secondary to ischemic colitis which she has been diagnosed from previous hospitalization. Status post hemicolectomy on Sunday. Status post multiple blood transfusion Other diagnosis patient admitted with acute CVA for rehabilitation. Status post cardiac arrest Status post massive bleeding from AV fistula. History of hyperphosphatemia History of secondary hyperparathyroidism Diabetes Mellitus Status: Acute (3) Gastrointestinal hemorrhage Status: Acute (4) History of cardiac arrest Status: Acute (5) Ischemic colitis Status: Acute (6) Shock Status: Acute
--- NOTE | 2017-11-13 09:37 | CP.PCM.PN ---
Subjective - Date & Time of Evaluation Date of Evaluation: 11/13/17 Time of Evaluation: 07:30 - Subjective Subjective: Patient seen and examined this morning. Patient appears lethargic and is complaining of drowsiness. Patient had small amount of liquid intake yesterday, as per nursing. Patient has some serosanguinous drainage from inferior pole of surgical wound. Packing and dressing changed this AM. Objective - Vital Signs/Intake and Output Vital Signs (last 24 hours): Temp Pulse Resp BP Pulse Ox 99.6 F 105 H 11 L 98/59 L 99 11/13/17 08:00 11/13/17 08:00 11/13/17 08:00 11/13/17 08:00 11/13/17 08:00 Intake and Output: 11/13/17 11/13/17 06:59 18:59 Intake Total 600 50 Output Total 50 Balance 550 50 - Medications Medications: Current Medications Albumin Human (Albumin Human 25% (12.5 Gm/50 Ml)) 12.5 gm IV Q1H PRN PRN Reason: Diastolic blood pressure Epoetin Gonzalo (Procrit) 5,000 unit IV MWF [facility] Last Admin: 11/10/17 14:02 Dose: 5,000 unit Fentanyl (Duragesic) 1 patch TD Q3D [facility] PRN Reason: Protocol Last Admin: 11/11/17 13:42 Dose: 1 patch Heparin Sodium (Porcine) (Heparin) 5,000 units SC Q8 [facility] PRN Reason: Protocol Last Admin: 11/13/17 08:32 Dose: 5,000 units Piperacillin Sod/Tazobactam (Sod 2.25 gm/ Sodium Chloride) 100 mls @ 100 mls/ hr IVPB Q8 [facility] PRN Reason: Protocol Last Admin: 11/13/17 08:33 Dose: 100 mls/hr Insulin Human Regular (Humulin R) 0 units SC ACCU-CHECK [facility] PRN Reason: Protocol Last Admin: 11/13/17 07:28 Dose: 3 units Ondansetron HCl (Zofran Inj) 4 mg IVP Q4 PRN PRN Reason: Nausea/Vomiting Pantoprazole Sodium (Protonix Inj) 40 mg IVP DAILY [facility] Last Admin: 11/13/17 08:32 Dose: 40 mg Silver Sulfadiazine (Silvadene 1% 50 Gm) 0 applic TOP BID [facility] Last Admin: 11/13/17 08:33 Dose: 1 applic - Labs Labs: 11/13/17 05:55 11/13/17 05:55 PT 12.7 Seconds (9.8-13.1) 11/10/17 16:14 INR 1.1 (0.9-1.2) 11/10/17 16:14 APTT 39.3 Seconds (25.6-37.1) H D 11/10/17 16:14 - Constitutional Appears: No Acute Distress - Head Exam Head Exam: NORMOCEPHALIC - Eye Exam Eye Exam: Normal appearance - ENT Exam ENT Exam: Mucous Membranes Moist - Respiratory Exam Respiratory Exam: NORMAL BREATHING PATTERN - Cardiovascular Exam Cardiovascular Exam: +S1, +S2 - GI/Abdominal Exam GI & Abdominal Exam: Soft, Tenderness Additional comments: midline - Neurological Exam Neurological Exam: Alert, Awake, Oriented x3 - Psychiatric Exam Psychiatric exam: Normal Mood - Skin Skin Exam: Normal Color, Warm Assessment and Plan - Assessment and Plan (Free Text) Assessment: 67F with ischemic colitis s/p ex-lap w/ left hemicolectomy POD4 Plan: Clear liquid diet TPN ABx Analgesics DVT ppx daily packing changes PT eval Encourage and aid Patient OOB to chair D/w Dr. [place] PGY2
--- NOTE | 2017-11-13 09:50 | CP.PCM.PN ---
Subjective - Date & Time of Evaluation Date of Evaluation: 11/13/17 Time of Evaluation: 09:30 - Subjective Subjective: Pt had temp 100.1 this am No cough + abd pain minimal serosanguinous drainage in Ileostomy bag no N/V denies CP no SOB Objective - Vital Signs/Intake and Output Vital Signs (last 24 hours): Temp Pulse Resp BP Pulse Ox 99.6 F 105 H 11 L 98/59 L 99 11/13/17 08:00 11/13/17 08:00 11/13/17 08:00 11/13/17 08:00 11/13/17 08:00 Intake and Output: 11/13/17 11/13/17 06:59 18:59 Intake Total 600 50 Output Total 50 Balance 550 50 - Medications Medications: Current Medications Albumin Human (Albumin Human 25% (12.5 Gm/50 Ml)) 12.5 gm IV Q1H PRN PRN Reason: Diastolic blood pressure Epoetin Gonzalo (Procrit) 5,000 unit IV MWF [facility] Last Admin: 11/10/17 14:02 Dose: 5,000 unit Fentanyl (Duragesic) 1 patch TD Q3D [facility] PRN Reason: Protocol Last Admin: 11/11/17 13:42 Dose: 1 patch Heparin Sodium (Porcine) (Heparin) 5,000 units SC Q8 [facility] PRN Reason: Protocol Last Admin: 11/13/17 08:32 Dose: 5,000 units Piperacillin Sod/Tazobactam (Sod 2.25 gm/ Sodium Chloride) 100 mls @ 100 mls/ hr IVPB Q8 [facility] PRN Reason: Protocol Last Admin: 11/13/17 08:33 Dose: 100 mls/hr Insulin Human Regular (Humulin R) 0 units SC ACCU-CHECK [facility] PRN Reason: Protocol Last Admin: 11/13/17 07:28 Dose: 3 units Ondansetron HCl (Zofran Inj) 4 mg IVP Q4 PRN PRN Reason: Nausea/Vomiting Pantoprazole Sodium (Protonix Inj) 40 mg IVP DAILY [facility] Last Admin: 11/13/17 08:32 Dose: 40 mg Silver Sulfadiazine (Silvadene 1% 50 Gm) 0 applic TOP BID [facility] Last Admin: 11/13/17 08:33 Dose: 1 applic - Labs Labs: 11/13/17 05:55 11/13/17 05:55 PT 12.7 Seconds (9.8-13.1) 11/10/17 16:14 INR 1.1 (0.9-1.2) 11/10/17 16:14 APTT 39.3 Seconds (25.6-37.1) H D 11/10/17 16:14 - Constitutional Appears: No Acute Distress, Chronically Ill - Head Exam Head Exam: ATRAUMATIC, NORMAL INSPECTION, NORMOCEPHALIC - Eye Exam Eye Exam: EOMI, Normal appearance Pupil Exam: NORMAL ACCOMODATION - ENT Exam ENT Exam: Mucous Membranes Dry, Normal External Ear Exam - Neck Exam Neck Exam: Full ROM. absent: Meningismus - Respiratory Exam Respiratory Exam: NORMAL BREATHING PATTERN. absent: Respiratory Distress - Cardiovascular Exam Cardiovascular Exam: Irregular Rhythm, +S1, +S2 - GI/Abdominal Exam GI & Abdominal Exam: Distended, + Tenderness midline surgical wound with dressing Left Ileostomy bag - Extremities Exam Extremities Exam: absent: Calf Tenderness Additional comments: left arm old AV fistula right femoral TLC - Back Exam Back Exam: absent: CVA tenderness (L), CVA tenderness (R) - Neurological Exam Neurological Exam: Alert, Awake, CN II-XII Intact, Oriented x3 Neuro motor strength exam: Left Upper Extremity: 5, Right Upper Extremity: 5, Left Lower Extremity: 5, Right Lower Extremity: 5 - Psychiatric Exam Psychiatric exam: Normal Affect, Normal Mood - Skin Skin Exam: Dry, Normal Color, Warm Assessment and Plan - Assessment and Plan (Free Text) Assessment: 67 yo female with multiple medical problems like ESRD on dialysis, Type 2 DM, HTN, obesity, history of old CVA in 2011, atrial fibrillation,with 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 where she developed GI bleed with hemorrhagic shock and severe ischemic colitis diagnosed with colonoscopy . She also had a cardiac arrest and respiratory failure requiring intubation . After improving she was transferred to acute rehab for physical therapy where she continued to have some episodes of GI bleed. On 11/04 she started to have worsening of rectal bleed , with blood clots per rectum hypotension , fever Tmax 102 and some lower abdominal tenderness. Full septic panel was ordered , Cipro and Flagyl given , IVF ( bolus started ). Patient was then admitted to ICU with diagnosis of hypovolemic shock and GI bleed and rule out sepsis . Her colonoscopy performed at [facility] had shown : diffuse severe inflammation with ulcerations in the entire colon, severe ischemic colitis mucosal ulcerations up to 40cm dinorah. GI ,surgery and ID consulted Underwent Left Colon resection with ileostomy on 11/09 . Transfused total 6 unit PRBC . At present in ICU , hemodynamically stable. With minimal serosanguinous output from ileostomy 1. Hypovolemic shock most secondary to GI bleed-- resolved off Levophed drip since 11/05 s/p 6 unit PRBC transfusion Continue IVF hydration and antibiotics on TPN since 11/11 as per surgery cont clear liquid diet 2.Recurrent lower GI bleed due to Ischemic colitis s/p left colon resection with ileostomy 11/09 Complains of pain . On Fentanyl patch and Morphine PRN s/p 6 unit PRBC transfusion . Received DDAVP and FFP Minimal output from stoma overnight. Liquid diet Promote ambulation and out of bed to chair Contine TPN and monitor electrolytes Wound care as per surgery continue IV antibiotics ( Zosyn) and pain management 3. Acute on chronic anemia-stable GI blood loss on top of chronic kidney disease anemia s/p 6 unit PRBC transfusion continue Epogen 4. History of recent cardiac arrest/respiratory arrest 5. ESRD on Dialysis MWF Nephro consulted continue HD as scheduled 6. History of R CVA 10/24/17 chronic restart ASA and Statin in am 7. Paroxysmal Afib patient is in and out SR and afib on monitor, rate controlled continue to monitor closely no anticoag due to rectal bleed 8. DM Type II accuchecks and insulin coverage Pt off meds as she is NPO on TPN monitor electrolytes , accuchecks 9. DVT prophylaxis SCDs started Heparin for DVt prophylaxis as per surgery
[2017-11-13] MEDS ORDERED: Amino Acids/Dextrose 1,000 ML IV ONE (12:00)
--- NOTE | 2017-11-13 13:27 | CP.CCUPN ---
CCU Subjective - Physician Review Events Since Last Encounter (Free Text): 11/13/17 13:22 patient is alert, but still weak, no complaints. CCU Objective - Vital Signs / Intake & Output Vital Signs (Last 4 hours): Vital Signs Temp Pulse Resp BP Pulse Ox 11/13/17 12:00 99.0 F 98 H 8 L 85/43 L 100 11/13/17 10:00 94 H 24 102/50 L 100 Intake and Output (Last 8hrs): Intake & Output 11/12/17 11/13/17 11/13/17 22:59 06:59 14:59 Intake Total 433 400 650 Output Total 50 Balance 433 350 650 Intake: IV 233 250 Intake, Piggyback 100 Oral 300 TPN/PPN 200 400 Output: Drainage 50 Right Lower Abdomen 50 - Physical Exam Head: Positive for: Atraumatic, Normocephalic Pupils: Positive for: PERRL Extroacular Muscles: Positive for: EOMI Conjunctiva: Positive for: Normal. Negative for: Injected, Icteric Mouth: Positive for: Moist Mucous Membranes Nose (Internal): Positive for: Normal Inspection Neck: Positive for: Normal Range of Motion, Trachea Midline. Negative for: Meningeal Signs, MIDLINE TENDERNESS, Paraspinal Tenderness, JVD, Lymphadenopathy , Bruit, Other Respiratory/Chest: Positive for: Clear to Auscultation, Good Air Exchange. Negative for: Respiratory Distress, Accessory Muscle Use Cardiovascular: Positive for: Regular Rate and Rhythm, Normal S1, S2, Peripheal Pulses Present. Negative for: Murmurs, Irregular Rhythm Upper Extremity: Positive for: Normal Inspection Lower Extremity: Positive for: Normal Inspection Neurological: Positive for: GCS=15, CN II-XII Intact, Speech Normal, Motor Func Grossly Intact, Normal Sensory Function Psychiatric: Positive for: Alert - Medications Active Medications: Active Medications Generic Name Dose Route Start Last Admin Trade Name Freq PRN Reason Stop Dose Admin Acetaminophen 975 mg 11/13/17 17:00 Tylenol 325mg Tab PO Q8 [facility] Albumin Human 12.5 gm 11/12/17 16:45 Albumin Human 25% (12.5 Gm/50 Ml) IV Q1H PRN Diastolic blood pressure Epoetin Gonzalo 5,000 unit 11/07/17 09:00 11/10/17 14:02 Procrit IV 5,000 unit MWF [facility] Administration Fentanyl 1 patch 11/11/17 13:30 11/11/17 13:42 Duragesic TD 1 patch Q3D [facility] Administration Protocol Heparin Sodium (Porcine) 5,000 units 11/11/17 09:00 11/13/17 08:32 Heparin SC 5,000 units Q8 [facility] Administration Protocol Piperacillin Sod/Tazobactam 100 mls @ 100 mls/hr 11/10/17 17:00 11/13/17 08: 33 Sod 2.25 gm/ Sodium Chloride IVPB 100 mls/hr Q8 [facility] Administration Protocol Amino Acids 1,000 mls @ 50 mls/hr 11/13/17 12:00 11/13/17 11:14 Clinimix 4.25%-25% 1000 Ml IV 11/14/17 07:59 50 mls/hr .Q20H ONE Administration Insulin Human Regular 0 units 11/04/17 17:00 11/13/17 11:15 Humulin R SC 3 units ACCU-CHECK [facility] Administration Protocol Ondansetron HCl 4 mg 11/09/17 12:34 Zofran Inj IVP Q4 PRN Nausea/Vomiting Oxycodone HCl 5 mg 11/13/17 12:41 Oxycodone Immediate Release Tab PO Q6 PRN Pain, moderate (4-7) Pantoprazole Sodium 40 mg 11/13/17 09:00 11/13/17 08:32 Protonix Inj IVP 40 mg DAILY [facility] Administration - Patient Studies Lab Studies: Microbiology Studies 11/10/17 16:14 Blood Culture - Preliminary Blood-Venous NO GROWTH AFTER 48 HOURS Lab Studies 11/13/17 11/13/17 11/13/17 Range/Units 05:55 05:55 05:52 WBC 13.0 H (4.8-10.8) K/uL RBC 3.07 L (3.80-5.20) Mil/uL Hgb 8.9 L (12.0-16.0) g/dL Hct 27.5 L (34.0-47.0) % MCV 89.5 (81.0-99.0) fl MCH 28.9 (27.0-31.0) pg MCHC 32.3 L (33.0-37.0) g/dL RDW 18.2 H (11.5-14.5) % Plt Count 98 L (130-400) K/uL Sodium 134 (132-148) mmol/l Potassium 3.6 (3.6-5.0) MMOL/L Chloride 98 (98-107) mmol/L Carbon Dioxide 26 (22-30) mmol/L Anion Gap 14 (10-20) BUN 18 H (7-17) mg/dl Creatinine 2.7 H (0.7-1.2) mg/dl Est GFR ( Amer) 21 Est GFR (Non-Af Amer) 17 POC Glucose (mg/dL) 212 H (65-110) mg/dL Random Glucose 190 H (65-105) mg/dL Calcium 8.0 L (8.4-10.2) mg/dL 11/12/17 11/12/17 11/12/17 Range/Units 22:14 16:02 10:48 WBC (4.8-10.8) K/uL RBC (3.80-5.20) Mil/uL Hgb (12.0-16.0) g/dL Hct (34.0-47.0) % MCV (81.0-99.0) fl MCH (27.0-31.0) pg MCHC (33.0-37.0) g/dL RDW (11.5-14.5) % Plt Count (130-400) K/uL Sodium (132-148) mmol/l Potassium (3.6-5.0) MMOL/L Chloride (98-107) mmol/L Carbon Dioxide (22-30) mmol/L Anion Gap (10-20) BUN (7-17) mg/dl Creatinine (0.7-1.2) mg/dl Est GFR ( Amer) Est GFR (Non-Af Amer) POC Glucose (mg/dL) 203 H 277 H 372 H (65-110) mg/dL Random Glucose (65-105) mg/dL Calcium (8.4-10.2) mg/dL Laboratory Results - last 24 hr 11/12/17 11/12/17 11/12/17 10:48 16:02 22:14 WBC RBC Hgb Hct MCV MCH MCHC RDW Plt Count Sodium Potassium Chloride Carbon Dioxide Anion Gap BUN Creatinine Est GFR ( Amer) Est GFR (Non-Af Amer) POC Glucose (mg/dL) 372 H 277 H 203 H Random Glucose Calcium 11/13/17 11/13/17 11/13/17 05:52 05:55 05:55 WBC 13.0 H RBC 3.07 L Hgb 8.9 L Hct 27.5 L MCV 89.5 MCH 28.9 MCHC 32.3 L RDW 18.2 H Plt Count 98 L Sodium 134 Potassium 3.6 Chloride 98 Carbon Dioxide 26 Anion Gap 14 BUN 18 H Creatinine 2.7 H Est GFR ( Amer) 21 Est GFR (Non-Af Amer) 17 POC Glucose (mg/dL) 212 H Random Glucose 190 H Calcium 8.0 L Fingerstick Blood Sugar Results: 227 Review of Systems - Review of Systems All systems: reviewed and no additional remarkable complaints except (no complaints) Critical Care Progress Note - Nutrition Nutrition: Nutrition Category Date Time Status Liquid Diet [DIET] Diets 11/12/17 Lunch Active Assessment/Plan (1) Ischemic colitis Assessment and plan: 67yo F. PMHx ESRD on HD. recent bleeding from fistula c/b hemorrhagic shock, ischemic stroke, ischemic colitis eventually requiring left hemicolectomy with colostomy. Neuro: alert but lethargic, stopping fentanyl patch, oxycodone prn and tylenol prn. Pulm: no acute issues, breathing spontaneously on room air. CV: hemodynamically stable Hem: anemia of chronic disease, continue procrit Renal: no acute issues Endo: no acutes issues GI: advancing diet to full liquid diet. ID: sepsis improving, continue Zosyn. DVT proph - heparin sq GI proph - protonix Code status - full code Critical Care Time spent 35 minutes Multi-disciplinary rounds were performed with house staff, nursing, speech therapy, respiratory therapy, pharmacy and nutrition with integrated input from the primary team/attending and other consulting services. The documented time is cumulative and includes review of patient data/exams/labs/chart review and examination of the patient on rounds and throughout the day; time is exclusive of any procedures or teaching time. Current Visit: Yes Status: Acute
--- NOTE | 2017-11-13 14:01 | CP.PCM.PN ---
Subjective - Date & Time of Evaluation Date of Evaluation: 11/13/17 Time of Evaluation: 14:01 - Subjective Subjective: ID Note- Patient seen and examined today in ICU. pt. awake but has pain in her surgical site she states. as per nurse no new events. her right TLC femoral line has been in palce since admission as per nurse. pt. had lo garde fever. Objective - Vital Signs/Intake and Output Vital Signs (last 24 hours): Temp Pulse Resp BP Pulse Ox 99.0 F 98 H 8 L 85/43 L 100 11/13/17 12:00 11/13/17 12:00 11/13/17 12:00 11/13/17 12:00 11/13/17 12:00 Intake and Output: 11/13/17 11/13/17 06:59 18:59 Intake Total 600 650 Output Total 50 Balance 550 650 - Medications Medications: Current Medications Acetaminophen (Tylenol 325mg Tab) 975 mg PO Q8 [facility] Albumin Human (Albumin Human 25% (12.5 Gm/50 Ml)) 12.5 gm IV Q1H PRN PRN Reason: Diastolic blood pressure Epoetin Gonzalo (Procrit) 5,000 unit IV MWF [facility] Last Admin: 11/10/17 14:02 Dose: 5,000 unit Heparin Sodium (Porcine) (Heparin) 5,000 units SC Q8 [facility] PRN Reason: Protocol Last Admin: 11/13/17 08:32 Dose: 5,000 units Piperacillin Sod/Tazobactam (Sod 2.25 gm/ Sodium Chloride) 100 mls @ 100 mls/ hr IVPB Q8 [facility] PRN Reason: Protocol Last Admin: 11/13/17 08:33 Dose: 100 mls/hr Amino Acids (Clinimix 4.25%-25% 1000 Ml) 1,000 mls @ 50 mls/hr IV .Q20H ONE Stop: 11/14/17 07:59 Last Admin: 11/13/17 11:14 Dose: 50 mls/hr Insulin Human Regular (Humulin R) 0 units SC ACCU-CHECK [facility] PRN Reason: Protocol Last Admin: 11/13/17 11:15 Dose: 3 units Ondansetron HCl (Zofran Inj) 4 mg IVP Q4 PRN PRN Reason: Nausea/Vomiting Oxycodone HCl (Oxycodone Immediate Release Tab) 5 mg PO Q6 PRN PRN Reason: Pain, moderate (4-7) Pantoprazole Sodium (Protonix Inj) 40 mg IVP DAILY [facility] Last Admin: 11/13/17 08:32 Dose: 40 mg - Labs Labs: - Additional Findings Additional findings: - Constitutional Appears: Non-toxic, No Acute Distress, Chronically Ill - Head Exam Head Exam: ATRAUMATIC, NORMOCEPHALIC - Eye Exam Eye Exam: EOMI, Normal appearance, PERRL - ENT Exam ENT Exam: Mucous Membranes Dry, Normal Exam - Respiratory Exam Respiratory Exam: Clear to Auscultation Bilateral, NORMAL BREATHING PATTERN. - Cardiovascular Exam Cardiovascular Exam: S1S2 RRR - GI/Abdominal Exam GI & Abdominal Exam: soft Additional comments: KITA drain to right mid abdomen Midline surgical incision with dressings in place clean and intact iliostomy to left mid abdomen appears pink and clean Neuro- awake but drowsy Laboratory Results - last 72 hr 11/07/17 11/10/17 11/10/17 16:05 16:14 17:24 WBC RBC Hgb Hct MCV MCH MCHC RDW Plt Count PT 12.7 INR 1.1 APTT 39.3 H D Sodium Potassium Chloride Carbon Dioxide Anion Gap BUN Creatinine Est GFR ( Amer) Est GFR (Non-Af Amer) POC Glucose (mg/dL) 104 Random Glucose Calcium Phosphorus Magnesium Triglycerides Crossmatch See Detail 11/10/17 11/11/17 11/11/17 22:29 05:00 05:00 WBC 18.0 H RBC 3.18 L Hgb 9.2 L D Hct 28.0 L MCV 88.1 MCH 29.1 MCHC 33.0 RDW 18.3 H Plt Count 97 L D PT INR APTT Sodium 136 Potassium 3.5 L Chloride 102 Carbon Dioxide 23 Anion Gap 15 BUN 20 H Creatinine 3.9 H Est GFR ( Amer) 14 Est GFR (Non-Af Amer) 11 POC Glucose (mg/dL) 83 Random Glucose 73 Calcium 8.5 Phosphorus Magnesium Triglycerides Crossmatch 11/11/17 11/11/17 11/11/17 06:38 13:58 17:35 WBC RBC Hgb Hct MCV MCH MCHC RDW Plt Count PT INR APTT Sodium Potassium Chloride Carbon Dioxide Anion Gap BUN Creatinine Est GFR ( Amer) Est GFR (Non-Af Amer) POC Glucose (mg/dL) 71 193 H 282 H Random Glucose Calcium Phosphorus Magnesium Triglycerides Crossmatch 11/11/17 11/12/17 11/12/17 22:42 04:10 04:10 WBC 14.1 H RBC 3.23 L Hgb 9.3 L Hct 28.8 L MCV 89.2 MCH 28.8 MCHC 32.3 L RDW 18.7 H Plt Count 104 L PT INR APTT Sodium 134 Potassium 3.4 L Chloride 100 Carbon Dioxide 24 Anion Gap 13 BUN 29 H Creatinine 4.4 H Est GFR ( Amer) 12 Est GFR (Non-Af Amer) 10 POC Glucose (mg/dL) 391 H Random Glucose 360 H Calcium 7.9 L Phosphorus 3.1 Magnesium 1.7 Triglycerides 74 Crossmatch 11/12/17 11/12/17 11/12/17 06:38 10:48 16:02 WBC RBC Hgb Hct MCV MCH MCHC RDW Plt Count PT INR APTT Sodium Potassium Chloride Carbon Dioxide Anion Gap BUN Creatinine Est GFR ( Amer) Est GFR (Non-Af Amer) POC Glucose (mg/dL) 357 H 372 H 277 H Random Glucose Calcium Phosphorus Magnesium Triglycerides Crossmatch 11/12/17 11/13/17 11/13/17 22:14 05:52 05:55 WBC 13.0 H RBC 3.07 L Hgb 8.9 L Hct 27.5 L MCV 89.5 MCH 28.9 MCHC 32.3 L RDW 18.2 H Plt Count 98 L PT INR APTT Sodium Potassium Chloride Carbon Dioxide Anion Gap BUN Creatinine Est GFR ( Amer) Est GFR (Non-Af Amer) POC Glucose (mg/dL) 203 H 212 H Random Glucose Calcium Phosphorus Magnesium Triglycerides Crossmatch 11/13/17 11/13/17 11/13/17 05:55 11:12 16:22 WBC RBC Hgb Hct MCV MCH MCHC RDW Plt Count PT INR APTT Sodium 134 Potassium 3.6 Chloride 98 Carbon Dioxide 26 Anion Gap 14 BUN 18 H Creatinine 2.7 H Est GFR ( Amer) 21 Est GFR (Non-Af Amer) 17 POC Glucose (mg/dL) 227 H 220 H Random Glucose 190 H Calcium 8.0 L Phosphorus Magnesium Triglycerides Crossmatch Microbiology 11/10/17 16:14 Blood-Venous Blood Culture - Preliminary NO GROWTH AFTER 3 DAYS 11/04/17 11:09 Blood Blood Culture - Final NO GROWTH AFTER 5 DAYS 11/04/17 17:59 Urine,Poe Urine Culture - Final No Growth (<1,000 CFU/ML) 11/04/17 18:00 Nose MRSA Culture (Admit) - Final MRSA NOT DETECTED Assessment and Plan (1) ESRD (end stage renal disease) on dialysis Status: Acute (2) Ischemic colitis Status: Acute (3) History of cardiac arrest Status: Acute (4) Gastrointestinal hemorrhage Status: Acute - Assessment and Plan (Free Text) Assessment: A/P- Patient is a 67 year old female with past medical history includes ESRD on dialysis, Type 2 DM, HTN, obesity, history of old CVA in 2011, atrial fibrillation, GI bleed with hemorrhagic shock just last week at [facility]. During that time the patient had an episode of cardiac arrest and respiratory failure and required intubation and hemodynamic monitoring in the ICU due to hypotensive shock from extravasation. She developed ischemic colitis that was diagnosed with colonoscopy and transferred to [facility] acute rehab for PT/ OT. She was transferred to [facility] ICU due to rectal bleed with hypovolemia and suspected sepsis.copy that showed colonic diverticulosis, internal hemorrhoids and diffuse severe inflammation with ulcerations in the entire colon, severe ischemic colitis. On 11/04 she started to have worsening of rectal bleed , with blood clots and hypotension , fever Tmax 102 and minimal lower abdominal tenderness. Full septic panel was ordered , Cipro and Flagyl given , IVF ( bolus started ). Patient was then sent to [facility] ED then to ICU for rule out sepsis and GI bleed. pt. s/p partial colectomy with ostomy and KITA drain in place POD #4 prior to he surgery had been afebrile and normal wbc count was on empiric ceftriaxone and flagy low grade fever Leukocytosis trending down. stool c.diff- neg blood cx- neg urine cx- neg plan- continue with empiric zosyn pending repeat cx results, day #4 today. check blood cx from the TLC and would advise to d/c femoral TLC and place another line elsewhere. check cbc in am. check CXR r/o atelectasis. all labs and imaging reviewed. ICU time 45 min.
[2017-11-14 05:45] LABS: BASO % 0.3 % (0.0-2.0); EOS # 0.1 K/uL (0.0-0.7); EOS % 1.5 % (0.0-4.0); HEMOGLOBIN 8.5 g/dL (12.0-16.0); LYMPH # 0.3 K/uL (1.0-4.3); LYMPH % 3.4 % (20.0-40.0); MEAN CELL VOLUME 90.9 fl (81.0-99.0); MEAN CORPUSCULAR HEMOGLOBIN 29.6 pg (27.0-31.0); MEAN CORPUSCULAR HGB CONC 32.5 g/dL (33.0-37.0); MEAN PLATELET VOLUME 8.1 fl (7.2-11.7); MONO # 0.3 K/uL (0.0-0.8); MONO % 3.4 % (0.0-10.0); NEUT # 8.6 K/uL (1.8-7.0); NEUT % 91.4 % (50.0-75.0); NRBC % 0.2 % (0.0-0.0); PLATELET COUNT 112 K/uL (130-400); RBC 2.88 Mil/uL (3.80-5.20); RED CELL DISTRIBUTION WIDTH 18.6 % (11.5-14.5); WHITE BLOOD COUNT 9.4 K/uL (4.8-10.8)
[2017-11-14 06:08] LABS: ALBUMIN 2.1 g/dL (3.5-5.0); CALCIUM 8.5 mg/dL (8.4-10.2)
[2017-11-14 06:29] LABS: ALB/GLOB RATIO 0.7 (1.0-2.1)
[2017-11-14] MEDS: Insulin Regular 100 units/ml SC SCH ×4 (07:18→23:08)
[2017-11-14] MEDS ORDERED: Albumin Human 25% (12.5 gm/50 ml) IV ONE (09:46)
[2017-11-14] MEDS: Epoetin Alfa 20000 UNIT/ML Inj IV SCH ×2 (09:48→09:50)
--- NOTE | 2017-11-14 11:03 | CP.PCM.PN ---
Subjective - Date & Time of Evaluation Date of Evaluation: 11/14/17 Time of Evaluation: 11:01 - Subjective Subjective: Dialysis note Patient receiving dialysis now. Patient is awake and conscious Complaining of generalized weakness and sore on the site of the surgery. I discussed the dialysis order with the dialysis nurse at the bedside. Objective - Vital Signs/Intake and Output Vital Signs (last 24 hours): Temp Pulse Resp BP Pulse Ox 98.4 F 90 14 128/60 100 11/14/17 07:56 11/14/17 07:56 11/14/17 07:56 11/14/17 07:56 11/14/17 07:56 Intake and Output: 11/14/17 11/14/17 06:59 18:59 Intake Total 580 Output Total 80 Balance 500 - Medications Medications: Current Medications Acetaminophen (Tylenol 325mg Tab) 975 mg PO Q8 [facility] Last Admin: 11/14/17 01:51 Dose: 975 mg Epoetin Gonzalo (Procrit) 5,000 unit IV MWF [facility] Last Admin: 11/14/17 09:50 Dose: 5,000 unit Heparin Sodium (Porcine) (Heparin) 5,000 units SC Q8 [facility] PRN Reason: Protocol Last Admin: 11/14/17 01:52 Dose: 5,000 units Insulin Human Regular (Humulin R) 0 units SC ACCU-CHECK [facility] PRN Reason: Protocol Last Admin: 11/14/17 07:18 Dose: 3 units Ondansetron HCl (Zofran Inj) 4 mg IVP Q4 PRN PRN Reason: Nausea/Vomiting Oxycodone HCl (Oxycodone Immediate Release Tab) 5 mg PO Q6 PRN PRN Reason: Pain, moderate (4-7) Pantoprazole Sodium (Protonix Inj) 40 mg IVP DAILY [facility] Last Admin: 11/13/17 08:32 Dose: 40 mg - Labs Labs: 11/14/17 04:30 11/14/17 04:30 PT 12.7 Seconds (9.8-13.1) 11/10/17 16:14 INR 1.1 (0.9-1.2) 11/10/17 16:14 APTT 39.3 Seconds (25.6-37.1) H D 11/10/17 16:14 - Constitutional Appears: No Acute Distress - ENT Exam ENT Exam: Mucous Membranes Moist - Neck Exam Neck Exam: absent: Lymphadenopathy - Respiratory Exam Respiratory Exam: NORMAL BREATHING PATTERN. absent: Chest Wall Tenderness - Cardiovascular Exam Cardiovascular Exam: absent: Gallop, JVD, Rubs - GI/Abdominal Exam GI & Abdominal Exam: Guarding, Normal Bowel Sounds - Extremities Exam Extremities Exam: absent: Calf Tenderness - Back Exam Back Exam: absent: CVA tenderness (L), CVA tenderness (R) - Neurological Exam Neurological Exam: Alert - Psychiatric Exam Psychiatric exam: Normal Affect - Skin Skin Exam: absent: Cyanosis Assessment and Plan (1) Colitis Status: Acute (2) ESRD (end stage renal disease) on dialysis Assessment & Plan: Patient with end stage renal disease on maintenance hemodialysis. Sunday. patient receiving hemodialysis now and been given 25% albumin to support blood pressure . potassium bath increased to 4 mEq Sodium bath 138 bicarbonate bath 34 Ultrafiltration around 750 to 1000 mL as tolerated discussed the order at the bedside with the dialysis nurse. Anemia EPO on dialysis. active rectal bleeding ,patient was transfused ,multiple transfusion secondary to ischemic colitis which she has been diagnosed from previous hospitalization. Status post hemicolectomy on Sunday11/09/17 Status post multiple blood transfusion Other diagnosis patient admitted with acute CVA for rehabilitation. Status post cardiac arrest Status post massive bleeding from AV fistula. History of hyperphosphatemia History of secondary hyperparathyroidism Diabetes Mellitus 67 yo female with multiple medical problems with history of new CVA with right MCA distribution that was initially admitted to [facility] acute rehab for PT/OT transferred and admitted to [facility] ICU for rectal bleed with hypovolemia and suspected sepsis. Her past medical history includes ESRD on dialysis, Type 2 DM, HTN, obesity, history of old CVA in 2011, atrial fibrillation, GI bleed with hemorrhagic shock at [facility]. During that time the patient had an episode of cardiac arrest and respiratory failure Status: Acute (3) Gastrointestinal hemorrhage Status: Acute (4) History of cardiac arrest Status: Acute (5) Ischemic colitis Status: Acute (6) Shock Status: Acute
[2017-11-14 11:43] LABS: ANISOCYTOSIS SLIGHT; BANDS 1 % (0-2); EOSINOPHIL 2 % (0-7); LYMPHOCYTE 3 % (20-50); MONOCYTE 3 % (0-10); MYELOCYTE 1 % (0-0); NEUTROPHIL 90 % (42-75); NUCLEATED RED BLOOD CELL 1 % (0-0); PLATELET ESTIMATE DECREASED (NORMAL); TOTAL CELLS COUNTED 100
[2017-11-14 11:47] LABS: HYPOCHROMIC MODERATE; LARGE PLATELETS PRESENT; OVALOCYTES SLIGHT; SCHISTOCYTES SLIGHT; TEARDROP CELLS SLIGHT
--- NOTE | 2017-11-14 11:50 | CP.PCM.PN ---
Subjective - Date & Time of Evaluation Date of Evaluation: 11/14/17 Time of Evaluation: 10:50 - Subjective Subjective: Pt seen and examined. She is less lethargic this AM. Tolerating liquid diet. Currently receiving HD bedside. Stoma appears pink. KITA output 160cc/24hr, serous. Abdominal wound packing changed. Objective - Vital Signs/Intake and Output Vital Signs (last 24 hours): Temp Pulse Resp BP Pulse Ox 98.4 F 90 14 128/60 100 11/14/17 07:56 11/14/17 07:56 11/14/17 07:56 11/14/17 07:56 11/14/17 07:56 Intake and Output: 11/14/17 11/14/17 06:59 18:59 Intake Total 580 Output Total 80 Balance 500 - Medications Medications: Current Medications Acetaminophen (Tylenol 325mg Tab) 975 mg PO Q8 [facility] BEDS AT [facility] Last Admin: 11/14/17 01:51 Dose: 975 mg Epoetin Gonzalo (Procrit) 5,000 unit IV MWF [facility] 234 BEDS AT [facility] Last Admin: 11/14/17 09:50 Dose: 5,000 unit Heparin Sodium (Porcine) (Heparin) 5,000 units SC Q8 [facility] 234 BEDS AT [facility] PRN Reason: Protocol Last Admin: 11/14/17 01:52 Dose: 5,000 units Insulin Human Regular (Humulin R) 0 units SC ACCU-CHECK [facility]CLUDE 234 BEDS AT [facility] PRN Reason: Protocol Last Admin: 11/14/17 07:18 Dose: 3 units Ondansetron HCl (Zofran Inj) 4 mg IVP Q4 PRN PRN Reason: Nausea/Vomiting Oxycodone HCl (Oxycodone Immediate Release Tab) 5 mg PO Q6 PRN PRN Reason: Pain, moderate (4-7) Pantoprazole Sodium (Protonix Inj) 40 mg IVP DAILY [facility] 234 BEDS AT [facility] Last Admin: 11/13/17 08:32 Dose: 40 mg - Labs Labs: 11/14/17 04:30 11/14/17 04:30 PT 12.7 Seconds (9.8-13.1) 11/10/17 16:14 INR 1.1 (0.9-1.2) 11/10/17 16:14 APTT 39.3 Seconds (25.6-37.1) H D 11/10/17 16:14 Assessment and Plan - Assessment and Plan (Free Text) Assessment: 67F with ischemic colitis s/p ex-lap w/ left hemicolectomy POD5 Plan: C/w Liquid diet Analgesics DVT ppx daily packing changes PT eval Encourage and aid Patient OOB to chair Further recs per Dr. [place] PGY2
[2017-11-14] MEDS: oxyCODONE 5 mg Immediate Release Tab PO PRN (12:04)
--- NOTE | 2017-11-14 13:24 | CP.PCM.PN ---
Subjective - Date & Time of Evaluation Date of Evaluation: 11/14/17 Time of Evaluation: 13:24 - Subjective Subjective: ID note- Patient much more alert today. denies any fever. Objective - Vital Signs/Intake and Output Vital Signs (last 24 hours): Temp Pulse Resp BP Pulse Ox 98.6 F 97 H 21 100/52 L 100 11/14/17 12:00 11/14/17 12:00 11/14/17 12:00 11/14/17 12:00 11/14/17 12:00 Intake and Output: 11/14/17 11/14/17 06:59 18:59 Intake Total 580 Output Total 80 1100 Balance 500 -1100 - Medications Medications: Current Medications Acetaminophen (Tylenol 325mg Tab) 975 mg PO Q8 [facility] Last Admin: 11/14/17 11:47 Dose: Not Given Epoetin Gonzalo (Procrit) 5,000 unit IV MWF [facility] Last Admin: 11/14/17 09:50 Dose: 5,000 unit Heparin Sodium (Porcine) (Heparin) 5,000 units SC Q8 [facility] PRN Reason: Protocol Last Admin: 11/14/17 11:45 Dose: 5,000 units Sodium Chloride 70 meq/Potassium Chloride 40 meq/Chromium/Copper/Manganese/Zinc 3 ml/ Multivitamins/Vitamin C 10 ml/ Insulin Human Regular 10 units/ Amino Acids /Electrolytes/Dextrose 1,050.6 mls @ 50 mls/hr IV .[id number] ONE Stop: 11/15/17 11:00 Sodium Chloride 70 meq/Potassium Chloride 40 meq/Insulin Human Regular 10 units / Amino Acids/Electrolytes/Dextrose 1,037.6 mls @ 50 mls/hr IV .[id number] ONE Stop: 11/16/17 07:45 Insulin Human Regular (Humulin R) 0 units SC ACCU-CHECK [facility] PRN Reason: Protocol Last Admin: 11/14/17 11:45 Dose: Not Given Ondansetron HCl (Zofran Inj) 4 mg IVP Q4 PRN PRN Reason: Nausea/Vomiting Oxycodone HCl (Oxycodone Immediate Release Tab) 5 mg PO Q6 PRN PRN Reason: Pain, moderate (4-7) Last Admin: 11/14/17 12:04 Dose: 5 mg Pantoprazole Sodium (Protonix Inj) 40 mg IVP DAILY [facility] Last Admin: 11/14/17 11:47 Dose: 40 mg - Labs Labs: - Additional Findings Additional findings: - Constitutional Appears: Non-toxic, No Acute Distress, Chronically Ill - Head Exam Head Exam: ATRAUMATIC, NORMOCEPHALIC - Eye Exam Eye Exam: EOMI, Normal appearance, PERRL - ENT Exam ENT Exam: Mucous Membranes Dry, Normal Exam - Respiratory Exam Respiratory Exam: Clear to Auscultation Bilateral, NORMAL BREATHING PATTERN. - Cardiovascular Exam Cardiovascular Exam: S1S2 RRR - GI/Abdominal Exam GI & Abdominal Exam: soft Additional comments: KITA drain to right mid abdomen Midline surgical incision with dressings in place clean and intact iliostomy to left mid abdomen appears pink and clean extremity- pain in left calf region Neuro- awake and much more alert today Laboratory Results - last 72 hr 11/11/17 11/11/17 11/11/17 13:58 17:35 22:42 WBC RBC Hgb Hct MCV MCH MCHC RDW Plt Count MPV Neut % (Auto) Lymph % (Auto) Lipscomb % (Auto) Eos % (Auto) Baso % (Auto) Neut # (Auto) Lymph # (Auto) Lipscomb # (Auto) Eos # (Auto) Baso # (Auto) Neutrophils % (Manual) Band Neutrophils % Lymphocytes % (Manual) Monocytes % (Manual) Eosinophils % (Manual) Myelocytes % Nucleated RBC % Platelet Estimate Large Platelets Hypochromasia (manual) Basophilic Stippling Anisocytosis (manual) Tear Drop Cells Ovalocytes Schistocytes Sodium Potassium Chloride Carbon Dioxide Anion Gap BUN Creatinine Est GFR ( Amer) Est GFR (Non-Af Amer) POC Glucose (mg/dL) 193 H 282 H 391 H Random Glucose Calcium Phosphorus Magnesium Total Bilirubin AST ALT Alkaline Phosphatase Total Protein Albumin Globulin Albumin/Globulin Ratio Triglycerides 11/12/17 11/12/17 11/12/17 04:10 04:10 06:38 WBC 14.1 H RBC 3.23 L Hgb 9.3 L Hct 28.8 L MCV 89.2 MCH 28.8 MCHC 32.3 L RDW 18.7 H Plt Count 104 L MPV Neut % (Auto) Lymph % (Auto) [place]comb % (Auto) Eos % (Auto) Baso % (Auto) Neut # (Auto) Lymph # (Auto) [place]comb # (Auto) Eos # (Auto) Baso # (Auto) Neutrophils % (Manual) Band Neutrophils % Lymphocytes % (Manual) Monocytes % (Manual) Eosinophils % (Manual) Myelocytes % Nucleated RBC % Platelet Estimate Large Platelets Hypochromasia (manual) Basophilic Stippling Anisocytosis (manual) Tear Drop Cells Ovalocytes Schistocytes Sodium 134 Potassium 3.4 L Chloride 100 Carbon Dioxide 24 Anion Gap 13 BUN 29 H Creatinine 4.4 H Est GFR ( Amer) 12 Est GFR (Non-Af Amer) 10 POC Glucose (mg/dL) 357 H Random Glucose 360 H Calcium 7.9 L Phosphorus 3.1 Magnesium 1.7 Total Bilirubin AST ALT Alkaline Phosphatase Total Protein Albumin Globulin Albumin/Globulin Ratio Triglycerides 74 11/12/17 11/12/17 11/12/17 10:48 16:02 22:14 WBC RBC Hgb Hct MCV MCH MCHC RDW Plt Count MPV Neut % (Auto) Lymph % (Auto) [place] % (Auto) Eos % (Auto) Baso % (Auto) Neut # (Auto) Lymph # (Auto) [place]comb # (Auto) Eos # (Auto) Baso # (Auto) Neutrophils % (Manual) Band Neutrophils % Lymphocytes % (Manual) Monocytes % (Manual) Eosinophils % (Manual) Myelocytes % Nucleated RBC % Platelet Estimate Large Platelets Hypochromasia (manual) Basophilic Stippling Anisocytosis (manual) Tear Drop Cells Ovalocytes Schistocytes Sodium Potassium Chloride Carbon Dioxide Anion Gap BUN Creatinine Est GFR ( Amer) Est GFR (Non-Af Amer) POC Glucose (mg/dL) 372 H 277 H 203 H Random Glucose Calcium Phosphorus Magnesium Total Bilirubin AST ALT Alkaline Phosphatase Total Protein Albumin Globulin Albumin/Globulin Ratio Triglycerides 11/13/17 11/13/17 11/13/17 05:52 05:55 05:55 WBC 13.0 H RBC 3.07 L Hgb 8.9 L Hct 27.5 L MCV 89.5 MCH 28.9 MCHC 32.3 L RDW 18.2 H Plt Count 98 L MPV Neut % (Auto) Lymph % (Auto) [place]comb % (Auto) Eos % (Auto) Baso % (Auto) Neut # (Auto) Lymph # (Auto) Lipscomb # (Auto) Eos # (Auto) Baso # (Auto) Neutrophils % (Manual) Band Neutrophils % Lymphocytes % (Manual) Monocytes % (Manual) Eosinophils % (Manual) Myelocytes % Nucleated RBC % Platelet Estimate Large Platelets Hypochromasia (manual) Basophilic Stippling Anisocytosis (manual) Tear Drop Cells Ovalocytes Schistocytes Sodium 134 Potassium 3.6 Chloride 98 Carbon Dioxide 26 Anion Gap 14 BUN 18 H Creatinine 2.7 H Est GFR ( Amer) 21 Est GFR (Non-Af Amer) 17 POC Glucose (mg/dL) 212 H Random Glucose 190 H Calcium 8.0 L Phosphorus Magnesium Total Bilirubin AST ALT Alkaline Phosphatase Total Protein Albumin Globulin Albumin/Globulin Ratio Triglycerides 11/13/17 11/13/17 11/13/17 11:12 16:22 21:44 WBC RBC Hgb Hct MCV MCH MCHC RDW Plt Count MPV Neut % (Auto) Lymph % (Auto) Lipscomb % (Auto) Eos % (Auto) Baso % (Auto) Neut # (Auto) Lymph # (Auto) [place]comb # (Auto) Eos # (Auto) Baso # (Auto) Neutrophils % (Manual) Band Neutrophils % Lymphocytes % (Manual) Monocytes % (Manual) Eosinophils % (Manual) Myelocytes % Nucleated RBC % Platelet Estimate Large Platelets Hypochromasia (manual) Basophilic Stippling Anisocytosis (manual) Tear Drop Cells Ovalocytes Schistocytes Sodium Potassium Chloride Carbon Dioxide Anion Gap BUN Creatinine Est GFR ( Amer) Est GFR (Non-Af Amer) POC Glucose (mg/dL) 227 H 220 H 228 H Random Glucose Calcium Phosphorus Magnesium Total Bilirubin AST ALT Alkaline Phosphatase Total Protein Albumin Globulin Albumin/Globulin Ratio Triglycerides 11/14/17 11/14/17 11/14/17 04:30 04:30 05:57 WBC 9.4 RBC 2.88 L Hgb 8.5 L Hct 26.2 L MCV 90.9 MCH 29.6 MCHC 32.5 L RDW 18.6 H Plt Count 112 L MPV 8.1 Neut % (Auto) 91.4 H Lymph % (Auto) 3.4 L Lipscomb % (Auto) 3.4 Eos % (Auto) 1.5 Baso % (Auto) 0.3 Neut # (Auto) 8.6 H Lymph # (Auto) 0.3 L Lipscomb # (Auto) 0.3 Eos # (Auto) 0.1 Baso # (Auto) 0.0 Neutrophils % (Manual) 90 H Band Neutrophils % 1 Lymphocytes % (Manual) 3 L Monocytes % (Manual) 3 Eosinophils % (Manual) 2 Myelocytes % 1 H Nucleated RBC % 1 H Platelet Estimate Decreased L Large Platelets Present Hypochromasia (manual) Moderate Basophilic Stippling Slight Anisocytosis (manual) Slight Tear Drop Cells Slight Ovalocytes Slight Schistocytes Slight Sodium 131 L Potassium 3.5 L Chloride 97 L Carbon Dioxide 25 Anion Gap 13 BUN 26 H Creatinine 3.6 H Est GFR ( Amer) 15 Est GFR (Non-Af Amer) 13 POC Glucose (mg/dL) 241 H Random Glucose 246 H Calcium 8.5 Phosphorus Magnesium Total Bilirubin 1.6 H AST 30 ALT 30 Alkaline Phosphatase 140 H D Total Protein 4.8 L Albumin 2.1 L Globulin 2.8 Albumin/Globulin Ratio 0.7 L Triglycerides 11/14/17 11:41 WBC RBC Hgb Hct MCV MCH MCHC RDW Plt Count MPV Neut % (Auto) Lymph % (Auto) [place]comb % (Auto) Eos % (Auto) Baso % (Auto) Neut # (Auto) Lymph # (Auto) [place]comb # (Auto) Eos # (Auto) Baso # (Auto) Neutrophils % (Manual) Band Neutrophils % Lymphocytes % (Manual) Monocytes % (Manual) Eosinophils % (Manual) Myelocytes % Nucleated RBC % Platelet Estimate Large Platelets Hypochromasia (manual) Basophilic Stippling Anisocytosis (manual) Tear Drop Cells Ovalocytes Schistocytes Sodium Potassium Chloride Carbon Dioxide Anion Gap BUN Creatinine Est GFR ( Amer) Est GFR (Non-Af Amer) POC Glucose (mg/dL) 136 H Random Glucose Calcium Phosphorus Magnesium Total Bilirubin AST ALT Alkaline Phosphatase Total Protein Albumin Globulin Albumin/Globulin Ratio Triglycerides Microbiology 11/10/17 16:14 Blood-Venous Blood Culture - Preliminary NO GROWTH AFTER 3 DAYS 11/04/17 11:09 Blood Blood Culture - Final NO GROWTH AFTER 5 DAYS 11/04/17 17:59 Urine,Poe Urine Culture - Final No Growth (<1,000 CFU/ML) 11/04/17 18:00 Nose MRSA Culture (Admit) - Final MRSA NOT DETECTED L Assessment and Plan (1) ESRD (end stage renal disease) on dialysis Status: Acute (2) Ischemic colitis Status: Acute (3) History of cardiac arrest Status: Acute (4) Gastrointestinal hemorrhage Status: Acute - Assessment and Plan (Free Text) Assessment: A/P- Patient is a 67 year old female with past medical history includes ESRD on dialysis, Type 2 DM, HTN, obesity, history of old CVA in 2011, atrial fibrillation, GI bleed with hemorrhagic shock just last week at [facility]. During that time the patient had an episode of cardiac arrest and respiratory failure and required intubation and hemodynamic monitoring in the ICU due to hypotensive shock from extravasation. She developed ischemic colitis that was diagnosed with colonoscopy and transferred to [facility] acute rehab for PT/ OT. She was transferred to [facility] ICU due to rectal bleed with hypovolemia and suspected sepsis.copy that showed colonic diverticulosis, internal hemorrhoids and diffuse severe inflammation with ulcerations in the entire colon, severe ischemic colitis. On 11/04 she started to have worsening of rectal bleed , with blood clots and hypotension , fever Tmax 102 and minimal lower abdominal tenderness. Full septic panel was ordered , Cipro and Flagyl given , IVF ( bolus started ). Patient was then sent to [facility] ED then to ICU for rule out sepsis and GI bleed. pt. s/p partial colectomy with ostomy and KITA drain in place POD #5 prior to he surgery had been afebrile and normal wbc count was on empiric ceftriaxone and flagy low grade fever yesterday, afebrile today Leukocytosis resolved. stool c.diff- neg blood cx- neg urine cx- neg plan- has completed 5 days of empiric IV zosyn today and prior to that was on empiric flagyl and ceftriaxone by primary team. await blood cx result from the TLC and would advise to d/c femoral TLC and place another line elsewhere. pt. is on TPN as per surgical team. TPN can predispose to bacteremia and fungemia and hence make sure pt. has good central line in place. advise to have pt. on TPN short time as it is a risk factor for fungemia and bactermia. for now no evidence of any infection and pt. has been on total 10 days of empiric iv ABX. d/c IV abx today. advise to check B/L LE US rule out DVT. all labs and imaging reviewed. all above d/w hospitalist and with ICU team. ICU time 45 min.
--- NOTE | 2017-11-14 13:35 | CP.PCM.PN ---
Subjective - Date & Time of Evaluation Date of Evaluation: 11/14/17 Time of Evaluation: 12:30 - Subjective Subjective: Afebrile looks more alert, and verbally responsive today compared to yesterday complains of generalized pain , feeling achy all over no SOB abd pain better minimal drainage from KITA drain on the right Ileostomy bag has only minimal serosanguinous drainage Had Hemodialysis today ON TPN Objective - Vital Signs/Intake and Output Vital Signs (last 24 hours): Temp Pulse Resp BP Pulse Ox 98.6 F 97 H 21 100/52 L 100 11/14/17 12:00 11/14/17 12:00 11/14/17 12:00 11/14/17 12:00 11/14/17 12:00 Intake and Output: 11/14/17 11/14/17 06:59 18:59 Intake Total 580 Output Total 80 1100 Balance 500 -1100 - Medications Medications: Current Medications Acetaminophen (Tylenol 325mg Tab) 975 mg PO Q8 [facility] Last Admin: 11/14/17 11:47 Dose: Not Given Epoetin Gonzaol (Procrit) 5,000 unit IV MWF [facility] Last Admin: 11/14/17 09:50 Dose: 5,000 unit Heparin Sodium (Porcine) (Heparin) 5,000 units SC Q8 [facility] PRN Reason: Protocol Last Admin: 11/14/17 11:45 Dose: 5,000 units Sodium Chloride 70 meq/Potassium Chloride 40 meq/Chromium/Copper/Manganese/Zinc 3 ml/ Multivitamins/Vitamin C 10 ml/ Insulin Human Regular 10 units/ Amino Acids 1,050.6 mls @ 50 mls/hr IV .[id number] ONE Stop: 11/15/17 11:00 Sodium Chloride 70 meq/Potassium Chloride 40 meq/Insulin Human Regular 10 units / Amino Acids 1,037.6 mls @ 50 mls/hr IV .[id number] ONE Stop: 11/16/17 07:45 Insulin Human Regular (Humulin R) 0 units SC ACCU-CHECK [facility] PRN Reason: Protocol Last Admin: 11/14/17 11:45 Dose: Not Given Ondansetron HCl (Zofran Inj) 4 mg IVP Q4 PRN PRN Reason: Nausea/Vomiting Oxycodone HCl (Oxycodone Immediate Release Tab) 5 mg PO Q6 PRN PRN Reason: Pain, moderate (4-7) Last Admin: 11/14/17 12:04 Dose: 5 mg Pantoprazole Sodium (Protonix Inj) 40 mg IVP DAILY [facility] Last Admin: 11/14/17 11:47 Dose: 40 mg - Labs Labs: 11/14/17 04:30 11/14/17 04:30 PT 12.7 Seconds (9.8-13.1) 11/10/17 16:14 INR 1.1 (0.9-1.2) 11/10/17 16:14 APTT 39.3 Seconds (25.6-37.1) H D 11/10/17 16:14 - Constitutional Appears: No Acute Distress, Chronically Ill - Head Exam Head Exam: ATRAUMATIC, NORMAL INSPECTION, NORMOCEPHALIC - Eye Exam Eye Exam: EOMI, Normal appearance Pupil Exam: NORMAL ACCOMODATION - ENT Exam ENT Exam: Mucous Membranes Dry, Normal External Ear Exam - Neck Exam Neck Exam: Full ROM. absent: Meningismus - Respiratory Exam Respiratory Exam: NORMAL BREATHING PATTERN. absent: Respiratory Distress - Cardiovascular Exam Cardiovascular Exam: Irregular Rhythm, +S1, +S2 - GI/Abdominal Exam GI & Abdominal Exam: Distended, + Tenderness midline surgical wound with dressing Left Ileostomy bag - Extremities Exam Extremities Exam: absent: Calf Tenderness Additional comments: left arm old AV fistula right femoral TLC - Back Exam Back Exam: absent: CVA tenderness (L), CVA tenderness (R) - Neurological Exam Neurological Exam: Alert, Awake, CN II-XII Intact, Oriented x3 Neuro motor strength exam: Left Upper Extremity: 5, Right Upper Extremity: 5, Left Lower Extremity: 5, Right Lower Extremity: 5 - Psychiatric Exam Psychiatric exam: Normal Affect, Normal Mood - Skin Skin Exam: Dry, Normal Color, Warm Assessment and Plan - Assessment and Plan (Free Text) Assessment: 67 yo female with multiple medical problems like ESRD on dialysis, Type 2 DM, HTN, obesity, history of old CVA in 2011, atrial fibrillation,with history of recent CVA on right MCA distribution was initially admitted to [facility] where she developed GI bleed with hemorrhagic shock and severe ischemic colitis diagnosed with colonoscopy . She also had a cardiac arrest and respiratory failure requiring intubation . After improving she was transferred to acute rehab for physical therapy where she continued to have some episodes of GI bleed. On 4/29 she started to have worsening of rectal bleed , with blood clots per rectum hypotension , fever Tmax 102 and some lower abdominal tenderness. Full septic panel was ordered , Cipro and Flagyl given , IVF ( bolus started ). Patient was then admitted to ICU with diagnosis of hypovolemic shock and GI bleed and rule out sepsis . Her colonoscopy performed at [facility] had shown : diffuse severe inflammation with ulcerations in the entire colon, severe ischemic colitis mucosal ulcerations up to 40cm dinorah. GI ,surgery and ID consulted Underwent Left Colon resection with ileostomy on 11/09 . Transfused total 6 unit PRBC . At present in ICU , hemodynamically stable. With minimal serosanguinous output from ileostomy, on TPN 1. Hypovolemic shock secondary to GI bleed-- resolved off Levophed drip since 11/05 s/p 6 unit PRBC transfusion on TPN since 11/11 as per surgery cont clear liquid diet 2.Recurrent lower GI bleed due to Ischemic colitis s/p left colon resection with ileostomy 11/09 Complains of pain . On Fentanyl patch and Morphine PRN s/p 6 unit PRBC transfusion . Received DDAVP and FFP Minimal output from stoma overnight. Liquid diet Promote ambulation and out of bed to chair Contine TPN and monitor electrolytes Wound care as per surgery continue IV antibiotics ( Zosyn) and pain management 3. Acute on chronic anemia-stable GI blood loss on top of chronic kidney disease anemia s/p 6 unit PRBC transfusion continue Epogen 4. History of recent cardiac arrest/respiratory arrest 5. ESRD on Dialysis MWF Nephro consulted continue HD as scheduled 6. History of R CVA 10/24/17 restart ASA and Statin 7. Paroxysmal Afib patient is in and out SR and afib on monitor, rate controlled continue to monitor closely no therapeutic anticoag for now restart ASA 8. DM Type II accuchecks and insulin coverage Pt off meds as she is NPO on TPN monitor electrolytes , accuchecks 9. DVT prophylaxis SCDs started Heparin for DVt prophylaxis as per surgery
[2017-11-14] MEDS ORDERED: [UNRECOGNIZED DRUG - OTHER] IV ONE (14:00)
[2017-11-14] MEDS ORDERED: SODIUM CHLORIDE IV ONE (14:00)
[2017-11-14] MEDS ORDERED: POTASSIUM CHLORIDE IV ONE (14:00)
--- NOTE | 2017-11-14 15:09 | CP.CCUPN ---
CCU Subjective - Physician Review Subjective (Free Text): Underwent HD today with removal of approx 1000ml, otherwise awake and alert, she does complain of LLE calf pain, there is no palpable cords or cyanosis, she denies any new CP or SOB at bed rest. She reamins on TPN at 50ml /hr; tolerated PO liquids well yesterday. Other VS and I/Os reviewed. Temp max 100.1 yesterday. ROS: No other pertinent negs or positives on 10+ system review PMSFH: All other Nursing and physician documentation reviewed to date; no new pertinent info noted relevant to current medical problems. EXAM- HEENT: no icterus, no gaze preference, pupils equal and reactive NECK: No JVD, supple, carotids equal upstroke bilat/no bruits, R IJV dialysis permacath- site clean, no redness / tenderness /discharge CHEST: decreased BS bases, no wheezes audible HEART: regular tachy, distant, S1S2, no rubs. ABD: soft, no distention, no tympany, + palp tenderness periumbilical area, BS hypoactive EXT: bilateral LE edema, as above. No peripheral/ digital cyanosis, no calf tenderness or palpable cords, distal pulses intact and symmetrical. LUE AVF NEURO: left hemiparesis, moves R extremities spontaneously SKIN: no rashes, warm and dry. LABS: WBC= 9.4 HGB= 8.5 PLTs= 112K Il=275 K= 3.5 CL=97 HCO3= 25 BUN/Cr= 26/3.6 BS= 246 IMPRESSION / MAJOR PROBLEMS NOW: 1. Recurrent LGIB 2 Ischemic colitis, s/p Colectomy 2. Hypovolemic Shock 2#1, r/o Severe Sepsis - bacteremia with Shock 3. Acute on Chronic Disease Anemia 4. h/o Resuscitation form Cardiac / Resp Arrest 5. ESRD on HD 6. 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 TPN adjusted for hyponatremia and borderline hypokalemia. 2. May need PICC line in order to continue TPN thru a dedicated line and will allow removal of existing R femoral TLC. 3. No further tachyarrythmias. 4. Try to get OOB to chair, encourage incentive [place], 5. Hgb levels relatively stable, PLTY counts improving. 6. LE venous Ultrasound Doppler CCU Objective - Vital Signs / Intake & Output Vital Signs (Last 4 hours): Vital Signs Temp Pulse Resp BP Pulse Ox 11/14/17 14:00 97 H 16 100/62 100 11/14/17 12:00 98.6 F 97 H 21 100/52 L 100 Intake and Output (Last 8hrs): Intake & Output 11/14/17 11/14/17 11/14/17 06:59 14:59 22:59 Intake Total 330 Output Total 80 1100 Balance 250 -1100 Intake: Oral 30 TPN/PPN 300 Output: Drainage 80 100 Right Lower Abdomen 80 100 Ultrafiltrate 1000
--- NOTE | 2017-11-14 17:46 | US ---
PROCEDURE: Bilateral lower extremity venous duplex Doppler. HISTORY: Bilateral calf pain, r/o DVT COMPARISON: None available. TECHNIQUE: Bilateral common femoral, superficial femoral, popliteal and posterior tibial veins were evaluated. Flow was assessed with color Doppler, compressibility, assessment of phasic flow and augmentation response. FINDINGS: COMMON FEMORAL VEIN: Right CFV: Unremarkable. Left CFV: Unremarkable. SUPERFICIAL FEMORAL VEIN: Right SFV: Unremarkable. Left SFV: Unremarkable. POPLITEAL VEIN: Right Popliteal: Unremarkable. Left Popliteal: Unremarkable. POSTERIOR TIBIAL VEIN: Right PTV: Unremarkable. Left PTV: Unremarkable. OTHER FINDINGS: 5.8 x 2.9 x 3.8 cm pain and fluid collection in the right popliteal fossa consistent with a popliteal /Sandoval's cyst IMPRESSION: No evidence of deep venous thrombosis. Sandoval's cyst right popliteal fossa as above.
[2017-11-15 06:06] LABS: HEMOGLOBIN 7.9 g/dL (12.0-16.0); MEAN CELL VOLUME 90.5 fl (81.0-99.0); MEAN CORPUSCULAR HEMOGLOBIN 29.8 pg (27.0-31.0); RBC 2.66 Mil/uL (3.80-5.20); RED CELL DISTRIBUTION WIDTH 18.8 % (11.5-14.5); WHITE BLOOD COUNT 9.9 K/uL (4.8-10.8)
[2017-11-15 06:28] LABS: ALB/GLOB RATIO 0.8 (1.0-2.1); ALBUMIN 2.1 g/dL (3.5-5.0); CALCIUM 8.7 mg/dL (8.4-10.2)
[2017-11-15] MEDS: Insulin Regular 100 units/ml SC SCH ×4 (07:15→22:35)
--- NOTE | 2017-11-15 08:56 | CP.CCUPN ---
CCU Subjective - Physician Review Subjective (Free Text): Sleeping, but easily arousable. Underwent HD yesterday with removal of approx 1000ml, otherwise awake and alert, denies any new CP or SOB at bed rest. She remains on TPN at 50ml /hr; has been tolerating PO liquids. No bleeding noted, + serosang fluid from L ostomy. Other VS and I/Os reviewed. Temp max 100.1 yesterday. ROS: No other pertinent negs or positives on 10+ system review PMSFH: All other Nursing and physician documentation reviewed to date; no new pertinent info noted relevant to current medical problems. EXAM- HEENT: no icterus, no gaze preference, pupils equal and reactive NECK: No JVD, supple, carotids equal upstroke bilat/no bruits, R IJV dialysis permacath- site clean, no redness / tenderness /discharge CHEST: decreased BS bases, no wheezes audible HEART: regular tachy, distant, S1S2, no rubs. ABD: soft, no distention, no tympany, + palp tenderness periumbilical area, BS hypoactive EXT: bilateral LE edema, as above. No peripheral/ digital cyanosis, no calf tenderness or palpable cords, distal pulses intact and symmetrical. Old LUE AVF NEURO: left hemiparesis, moves R extremities spontaneously SKIN: no rashes, warm and dry. LABS: WBC= 9.9 HGB= 7.9 PLTs= 129K Jy=316 K= 3.9 CL=98 HCO3= 28 BUN/Cr= 17/2.9 BS= 141 Phos= 1.7 Mg= 1.7 TG= 162 IMPRESSION / MAJOR PROBLEMS NOW: 1. Recurrent LGIB 2 Ischemic colitis, s/p Colectomy 2. Hypovolemic Shock 2#1, r/o Severe Sepsis - bacteremia with Shock 3. Acute on Chronic Disease Anemia 4. h/o Resuscitation form Cardiac / Resp Arrest 5. ESRD on HD 6. 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 TPN adjusted for avoiding recurrent hyponatremia, supplement Phos and Mag ; could start combination feeding. 2. May need PICC line in order to continue TPN thru a dedicated line and will allow removal of existing R femoral TLC. 3. No further tachyarrythmias. 4. Try to mobilize, get OOB to chair, encourage more incentive [place], 5. Slight drop in Hgb levels, will check repeat CBC today, PLT counts improving. 6. Arms remain edematous, Venous Ultrasound Doppler of bilat UE's. Yesterday' s Doppler US of legs neg for DVT. CCU Objective - Vital Signs / Intake & Output Vital Signs (Last 4 hours): Vital Signs Temp Pulse Resp BP Pulse Ox 11/15/17 08:00 98.3 F 87 15 113/58 L 100 11/15/17 06:00 99.1 F 98 H 13 95/57 L 100 Intake and Output (Last 8hrs): Intake & Output 11/14/17 11/15/17 11/15/17 22:59 06:59 14:59 Intake Total 560 375 Output Total 85 90 Balance 475 285 Weight 189 lb Intake: IV 192 350 Oral 25 TPN/PPN 200 Lipid 168 Output: Drainage 85 90 Right Lower Abdomen 85 90 Urine 0 Urine, Voided 0 Other: # Bowel Movements 0
--- NOTE | 2017-11-15 09:06 | CP.PCM.PN ---
Subjective - Date & Time of Evaluation Date of Evaluation: 11/15/17 Time of Evaluation: 09:00 - Subjective Subjective: Patient seen and examined bedside. Chronically ill, obese female lying in bed and appears lethargic. Responds to verbal command and name calling and follows orders . Hemodynamicaaly stable, afebrile BP 113/58 HR 87 afebrile No acute issues overnight . with anasarca Had HD yesterday with removal 1000 ml surgical wound healing well and dressing changed by surgery KITA drain in place with 275 ml output With good bowel sounds and stoma with minimal brownish output . on TPN and clear liquid Objective - Vital Signs/Intake and Output Vital Signs (last 24 hours): Temp Pulse Resp BP Pulse Ox 98.3 F 87 15 113/58 L 100 11/15/17 08:00 11/15/17 08:00 11/15/17 08:00 11/15/17 08:00 11/15/17 08:00 Intake and Output: 11/15/17 11/15/17 06:59 18:59 Intake Total 567 Output Total 125 Balance 442 - Medications Medications: Current Medications Acetaminophen (Tylenol 325mg Tab) 975 mg PO Q8 [facility] Last Admin: 11/15/17 00:16 Dose: 975 mg Aspirin (Ecotrin) 81 mg PO DAILY [facility] Atorvastatin Calcium (Lipitor) 20 mg PO DAILY [facility] Epoetin Gonzalo (Procrit) 5,000 unit IV MWF [facility] Last Admin: 11/14/17 09:50 Dose: 5,000 unit Heparin Sodium (Porcine) (Heparin) 5,000 units SC Q8 [facility] PRN Reason: Protocol Last Admin: 11/15/17 00:18 Dose: 5,000 units Sodium Chloride 70 meq/Potassium Chloride 40 meq/Chromium/Copper/Manganese/Zinc 3 ml/ Multivitamins/Vitamin C 10 ml/ Insulin Human Regular 10 units/ Amino Acids 1,050.6 mls @ 50 mls/hr IV .[id number] ONE Stop: 11/15/17 11:00 Last Admin: 11/14/17 14:43 Dose: 50 mls/hr Sodium Chloride 70 meq/Potassium Chloride 40 meq/Insulin Human Regular 10 units / Amino Acids 1,037.6 mls @ 50 mls/hr IV .[id number] ONE Stop: 11/16/17 07:45 Insulin Human Regular (Humulin R) 0 units SC ACCU-CHECK [facility] PRN Reason: Protocol Last Admin: 11/15/17 07:15 Dose: 3 units Ondansetron HCl (Zofran Inj) 4 mg IVP Q4 PRN PRN Reason: Nausea/Vomiting Oxycodone HCl (Oxycodone Immediate Release Tab) 5 mg PO Q6 PRN PRN Reason: Pain, moderate (4-7) Last Admin: 11/14/17 12:04 Dose: 5 mg Pantoprazole Sodium (Protonix Inj) 40 mg IVP DAILY [facility] Last Admin: 11/14/17 11:47 Dose: 40 mg - Labs Labs: 11/15/17 04:30 11/15/17 04:30 PT 12.7 Seconds (9.8-13.1) 11/10/17 16:14 INR 1.1 (0.9-1.2) 11/10/17 16:14 APTT 39.3 Seconds (25.6-37.1) H D 11/10/17 16:14 - Constitutional Appears: Chronically Ill, Other (obese,lethargic) - Head Exam Head Exam: ATRAUMATIC, NORMOCEPHALIC - Eye Exam Eye Exam: EOMI, PERRL - ENT Exam ENT Exam: Mucous Membranes Dry, Normal Exam - Neck Exam Neck Exam: Normal Inspection - Respiratory Exam Respiratory Exam: Clear to Ausculation Bilateral, NORMAL BREATHING PATTERN. absent: Rhonchi, Wheezes - Cardiovascular Exam Cardiovascular Exam: REGULAR RHYTHM. absent: JVD - GI/Abdominal Exam GI & Abdominal Exam: Tenderness (with palpation), Normal Bowel Sounds. absent: Guarding, Rebound Additional comments: midline surgical incision with dressing in place Iliostomy to left mid abdomen with minimal brownish output KITA drain in pace with serosanguinous output - Rectal Exam Rectal Exam: Deferred - Extremities Exam Additional comments: anasarca both to lower and upper extremities with facial edema - Neurological Exam Neurological Exam: Alert, Awake Additional comments: lethargic, responds to questions follows commands right upper arm more edematous right groin TLC - Psychiatric Exam Psychiatric exam: Flat Affect - Skin Skin Exam: Dry, Warm Additional comments: right hand dorsal aspect wound 3x 3 cm Assessment and Plan - Assessment and Plan (Free Text) Assessment: 67 yo female with multiple medical problems like ESRD on dialysis, Type 2 DM, HTN, obesity, history of old CVA in 2011, atrial fibrillation,with history of recent CVA on right MCA distribution was initially admitted to [facility] where she developed GI bleed with hemorrhagic shock and severe ischemic colitis diagnosed with colonoscopy . She also had a cardiac arrest and respiratory failure requiring intubation . After improving she was transferred to acute rehab for physical therapy where she continued to have some episodes of GI bleed. On 11/04 she started to have worsening of rectal bleed , with blood clots per rectum hypotension , fever Tmax 102 and some lower abdominal tenderness. Full septic panel was ordered , Cipro and Flagyl given , IVF bolus started . Patient was then admitted to ICU with diagnosis of hypovolemic shock and GI bleed and rule out sepsis . Her colonoscopy performed at [facility] had shown : diffuse severe inflammation with ulcerations in the entire colon, severe ischemic colitis mucosal ulcerations up to 40cm dinorah. GI ,surgery and ID consulted Underwent Left Colon resection with ileostomy on 11/09 . Transfused total 6 unit PRBC . At present in ICU , hemodynamically stable, lethargic on TPN . With minimal output from ileostomy and normal BS on TPN 1. Hypovolemic shock secondary to GI bleed-- resolved off Levophed drip since 11/05 s/p 6 unit PRBC transfusion on TPN since 11/11 as per surgery cont clear liquid diet Promote ambulation with PT 2.Recurrent lower GI bleed due to Ischemic colitis s/p left colon resection with ileostomy 11/09 Complains of pain . Oxycodone pRN for pain s/p 6 unit PRBC transfusion . Received DDAVP and FFP Minimal output from stoma overnight. Continue liquid diet Promote ambulation and out of bed to chair Contine TPN and monitor electrolytes. Will need to remove TLC from groin and place PICC line Check Doppler Us of RUE Wound care as per surgery Received total 10 days of empiric antibiotics with Cipro and flagyl 5 days and Zosyn 5 days 3. Acute on chronic anemia-stable GI blood loss on top of chronic kidney disease anemia s/p 6 unit PRBC transfusion continue Epogen 4. History of recent cardiac arrest/respiratory arrest 5. ESRD on Dialysis MWF Nephro consulted continue HD as scheduled Had HD yesterday with 1000 ml fluid removal 6. History of R CVA 10/24/17 restarted ASA and Statin 7. Paroxysmal Afib patient is in and out SR and afib on monitor, rate controlled continue to monitor closely no therapeutic anticoag for now on ASA 8. DM Type II accuchecks and insulin coverage off PO meds on TPN monitor electrolytes , accuchecks 9. DVT prophylaxis SCDs started Heparin for DVT prophylaxis as per surgery
--- NOTE | 2017-11-15 10:13 | CP.PCM.PN ---
Subjective - Date & Time of Evaluation Date of Evaluation: 11/15/17 Time of Evaluation: 10:13 - Subjective Subjective: Patient and bed. Patient is weak and awake and conscious. Abdomen sore at the site of the surgery. No vomiting reported Objective - Vital Signs/Intake and Output Vital Signs (last 24 hours): Temp Pulse Resp BP Pulse Ox 98.3 F 87 15 113/58 L 100 11/15/17 08:00 11/15/17 08:00 11/15/17 08:00 11/15/17 08:00 11/15/17 08:00 Intake and Output: 11/15/17 11/15/17 06:59 18:59 Intake Total 567 Output Total 125 Balance 442 - Medications Medications: Current Medications Acetaminophen (Tylenol 325mg Tab) 975 mg PO Q8 [facility] Last Admin: 11/15/17 09:06 Dose: 975 mg Aspirin (Ecotrin) 81 mg PO DAILY [facility] Last Admin: 11/15/17 08:54 Dose: 81 mg Atorvastatin Calcium (Lipitor) 20 mg PO DAILY [facility] Last Admin: 11/15/17 08:55 Dose: 20 mg Epoetin Gonzalo (Procrit) 5,000 unit IV MWF [facility] Last Admin: 11/14/17 09:50 Dose: 5,000 unit Heparin Sodium (Porcine) (Heparin) 5,000 units SC Q8 [facility] PRN Reason: Protocol Last Admin: 11/15/17 08:55 Dose: Not Given Sodium Chloride 70 meq/Potassium Chloride 40 meq/Chromium/Copper/Manganese/Zinc 3 ml/ Multivitamins/Vitamin C 10 ml/ Insulin Human Regular 10 units/ Amino Acids 1,050.6 mls @ 50 mls/hr IV .Q21H1M ONE Stop: 11/15/17 11:00 Last Admin: 11/14/17 14:43 Dose: 50 mls/hr Sodium Chloride 70 meq/Potassium Chloride 40 meq/Insulin Human Regular 10 units / Amino Acids 1,037.6 mls @ 50 mls/hr IV .[id number] ONE Stop: 11/16/17 07:45 Insulin Human Regular (Humulin R) 0 units SC ACCU-CHECK [facility] PRN Reason: Protocol Last Admin: 11/15/17 07:15 Dose: 3 units Ondansetron HCl (Zofran Inj) 4 mg IVP Q4 PRN PRN Reason: Nausea/Vomiting Oxycodone HCl (Oxycodone Immediate Release Tab) 5 mg PO Q6 PRN PRN Reason: Pain, moderate (4-7) Last Admin: 11/14/17 12:04 Dose: 5 mg Pantoprazole Sodium (Protonix Inj) 40 mg IVP DAILY [facility] Last Admin: 11/15/17 09:06 Dose: 40 mg - Labs Labs: 11/15/17 04:30 11/15/17 04:30 PT 12.7 Seconds (9.8-13.1) 11/10/17 16:14 INR 1.1 (0.9-1.2) 11/10/17 16:14 APTT 39.3 Seconds (25.6-37.1) H D 11/10/17 16:14 - Constitutional Appears: No Acute Distress - ENT Exam ENT Exam: Mucous Membranes Moist - Neck Exam Neck Exam: absent: Lymphadenopathy - Respiratory Exam Respiratory Exam: absent: Chest Wall Tenderness - Cardiovascular Exam Cardiovascular Exam: absent: Gallop, JVD, Rubs - GI/Abdominal Exam GI & Abdominal Exam: Guarding, Normal Bowel Sounds - Extremities Exam Extremities Exam: absent: Calf Tenderness - Back Exam Back Exam: absent: CVA tenderness (L), CVA tenderness (R) - Neurological Exam Neurological Exam: Alert - Psychiatric Exam Psychiatric exam: Normal Affect - Skin Skin Exam: absent: Cyanosis Assessment and Plan (1) Colitis Status: Acute (2) ESRD (end stage renal disease) on dialysis Assessment & Plan: Patient with end stage renal disease on maintenance hemodialysis. Sunday. dialysis order in place potassium bath 3 meq Sodium bath 138 bicarbonate bath 34 Ultrafiltration around 750 to 1000 mL as tolerated Anemia EPO on dialysis.hemoglobin 7.9 today and with blood pressure in the low normal therefore I suggested transfuse 1 unit of packed cells tomorrow on dialysis to support blood pressure as well . S/P active rectal bleeding ,patient was transfused ,multiple transfusion secondary to ischemic colitis which she has been diagnosed from previous hospitalization. Status post hemicolectomy on Sunday11/09/17 Status post multiple blood transfusion Other diagnosis patient admitted with acute CVA for rehabilitation. Status post cardiac arrest Status post massive bleeding from AV fistula. History of hyperphosphatemia History of secondary hyperparathyroidism Diabetes Mellitus Status: Acute Status: Acute (3) Gastrointestinal hemorrhage Status: Acute (4) History of cardiac arrest Status: Acute (5) Ischemic colitis Status: Acute (6) Shock Status: Acute
[2017-11-15] MEDS ORDERED: POTASSIUM CHLORIDE IV ONE (11:00)
[2017-11-15] MEDS ORDERED: SODIUM CHLORIDE IV ONE (11:00)
[2017-11-15] MEDS ORDERED: [UNRECOGNIZED DRUG - OTHER] IV ONE (11:00)
[2017-11-15 13:05] LABS: BASO # 0.1 K/uL (0.0-0.2); BASO % 0.6 % (0.0-2.0); EOS # 0.2 K/uL (0.0-0.7); EOS % 1.4 % (0.0-4.0); HEMOGLOBIN 8.3 g/dL (12.0-16.0); LYMPH # 0.4 K/uL (1.0-4.3); LYMPH % 3.8 % (20.0-40.0); MEAN CELL VOLUME 90.9 fl (81.0-99.0); MEAN CORPUSCULAR HEMOGLOBIN 29.5 pg (27.0-31.0); MEAN CORPUSCULAR HGB CONC 32.4 g/dL (33.0-37.0); MEAN PLATELET VOLUME 7.9 fl (7.2-11.7); MONO # 0.5 K/uL (0.0-0.8); MONO % 4.7 % (0.0-10.0); NEUT # 9.4 K/uL (1.8-7.0); NEUT % 89.5 % (50.0-75.0); RBC 2.8 Mil/uL (3.80-5.20); RED CELL DISTRIBUTION WIDTH 18.7 % (11.5-14.5); WHITE BLOOD COUNT 10.5 K/uL (4.8-10.8)
--- NOTE | 2017-11-15 18:17 | US ---
PROCEDURE: Upper Extremity Venous Duplex Exam HISTORY: r/o DVT PRIORS: None. TECHNIQUE: Bilateral upper extremity, internal jugular, subclavian, axillary, brachial, ulnar, radial, basilic and upper cephalic veins were evaluated. Flow was assessed with color Doppler, compressibility, assessment of phasic flow and augmentation response. Report prepared by histologist technologist. FINDINGS: RIGHT: 1. Internal Jugular: 1.1. Compressibility - Fully compressible: Thrombus - None : Flow - Phasic: Augmentation -Normal: Reflux - None. 2. Subclavian: 2.1. Compressibility - Fully compressible: Thrombus - None : Flow - Phasic: Augmentation -Normal: Reflux - None. 3. Axillary: 3.1. Compressibility - Fully compressible: Thrombus - None : Flow - Phasic: Augmentation -Normal: Reflux - None. 4. Brachial: 4.1. Compressibility - Fully compressible: Thrombus - None: Flow - Phasic: Augmentation -Normal: Reflux - None. 5. Ulnar: 5.1. Compressibility - Fully compressible: Thrombus - None: Flow - Phasic: Augmentation -Normal: Reflux - None. 6. Radial: 6.1. Compressibility - Fully compressible: Thrombus - None: Flow - Phasic: Augmentation - Normal: Reflux - None. 7. Cephalic: 7.1. Compressibility - Fully compressible: Thrombus - None: Flow - Phasic: Augmentation -Normal: Reflux - None. 8. Basilic: 8.1. Compressibility - Fully compressible: Thrombus - None: Flow - Phasic: Augmentation -Normal: Reflux - None. LEFT: 1. Internal Jugular: 1.1. Compressibility - Fully compressible: Thrombus - None : Flow - Phasic: Augmentation -Normal: Reflux - None. 2. Subclavian: 2.1. Compressibility - Fully compressible: Thrombus - None : Flow - Phasic: Augmentation -Normal: Reflux - None. 3. Axillary: 3.1. Compressibility - Fully compressible: Thrombus - None : Flow - Phasic: Augmentation -Normal: Reflux - None. 4. Brachial: 4.1. Compressibility - Incompressible: Thrombus - Acute: Flow - Absent : Augmentation -None: Reflux - None. 5. Ulnar: 5.1. Compressibility - Fully compressible: Thrombus - None: Flow - Phasic: Augmentation -Normal: Reflux - None. 6. Radial: 6.1. Compressibility - Fully compressible: Thrombus - None: Flow - Phasic: Augmentation - Normal: Reflux - None. 7. Cephalic: 7.1. Compressibility - Incompressible: Thrombus - Acute: Flow - Absent : Augmentation -None: Reflux - None. 8. Basilic: 8.1. Compressibility - Fully compressible: Thrombus - None: Flow - Phasic: Augmentation -Normal: Reflux - None. OTHER FINDINGS: Right: None. Left: None. IMPRESSION: Right: No evidence of vein thrombosis of the right upper extremity with excellent venous flow. Normal valve function noted of the right side. Left: No evidence of deep vein thrombosis of the left upper extremity. Noncompressible cephalic and left basilic veins consistent with superficial thrombophlebitis.
[2017-11-16 05:26] LABS: HEMOGLOBIN 8.8 g/dL (12.0-16.0); MEAN CELL VOLUME 91.1 fl (81.0-99.0); MEAN CORPUSCULAR HEMOGLOBIN 29.5 pg (27.0-31.0); MEAN CORPUSCULAR HGB CONC 32.4 g/dL (33.0-37.0); RBC 2.97 Mil/uL (3.80-5.20); RED CELL DISTRIBUTION WIDTH 19.1 % (11.5-14.5); WHITE BLOOD COUNT 11.6 K/uL (4.8-10.8)
[2017-11-16 05:56] LABS: CALCIUM 9.8 mg/dL (8.4-10.2)
[2017-11-16] MEDS: Insulin Regular 100 units/ml SC SCH ×4 (06:03→22:56)
--- NOTE | 2017-11-16 07:10 | CP.PCM.PN ---
Subjective - Date & Time of Evaluation Date of Evaluation: 11/16/17 Time of Evaluation: 07:10 - Subjective Subjective: lethargic vital noted chronically ill. no vomiting Objective - Vital Signs/Intake and Output Vital Signs (last 24 hours): Temp Pulse Resp BP Pulse Ox 98.6 F 92 H 14 136/90 99 11/16/17 04:00 11/16/17 06:00 11/16/17 06:00 11/16/17 06:00 11/16/17 06:00 Intake and Output: 11/16/17 11/16/17 06:59 18:59 Intake Total 575 Output Total 135 Balance 440 - Medications Medications: Current Medications Acetaminophen (Tylenol 325mg Tab) 975 mg PO Q8 [facility] Last Admin: 11/16/17 00:04 Dose: 975 mg Aspirin (Ecotrin) 81 mg PO DAILY [facility] Last Admin: 11/15/17 08:54 Dose: 81 mg Atorvastatin Calcium (Lipitor) 20 mg PO DAILY [facility] Last Admin: 11/15/17 08:55 Dose: 20 mg Epoetin Gonzalo (Procrit) 5,000 unit IV MWF [facility] Last Admin: 11/14/17 09:50 Dose: 5,000 unit Heparin Sodium (Porcine) (Heparin) 5,000 units SC Q8 [facility] PRN Reason: Protocol Last Admin: 11/16/17 00:05 Dose: 5,000 units Sodium Chloride 70 meq/Potassium Chloride 40 meq/Insulin Human Regular 10 units / Amino Acids 1,037.6 mls @ 50 mls/hr IV .[id number] ONE Stop: 11/16/17 07:45 Last Admin: 11/15/17 17:59 Dose: 50 mls/hr Insulin Human Regular (Humulin R) 0 units SC ACCU-CHECK [facility] PRN Reason: Protocol Last Admin: 11/16/17 06:03 Dose: 2 units Ondansetron HCl (Zofran Inj) 4 mg IVP Q4 PRN PRN Reason: Nausea/Vomiting Oxycodone HCl (Oxycodone Immediate Release Tab) 5 mg PO Q6 PRN PRN Reason: Pain, moderate (4-7) Last Admin: 11/14/17 12:04 Dose: 5 mg Pantoprazole Sodium (Protonix Inj) 40 mg IVP DAILY [facility] Last Admin: 11/15/17 09:06 Dose: 40 mg - Labs Labs: 11/16/17 04:30 11/16/17 04:30 PT 12.7 Seconds (9.8-13.1) 11/10/17 16:14 INR 1.1 (0.9-1.2) 11/10/17 16:14 APTT 39.3 Seconds (25.6-37.1) H D 11/10/17 16:14 - Constitutional Appears: No Acute Distress - Eye Exam Eye Exam: Conjunctival injection - ENT Exam ENT Exam: Mucous Membranes Dry - Neck Exam Neck Exam: absent: Lymphadenopathy - Respiratory Exam Respiratory Exam: Rhonchi. absent: Chest Wall Tenderness, Wheezes - Cardiovascular Exam Cardiovascular Exam: absent: Gallop, JVD, Rubs - GI/Abdominal Exam GI & Abdominal Exam: Guarding, Normal Bowel Sounds - Extremities Exam Extremities Exam: absent: Calf Tenderness - Back Exam Back Exam: absent: CVA tenderness (L), CVA tenderness (R) - Neurological Exam Neurological Exam: Altered - Psychiatric Exam Psychiatric exam: Flat Affect - Skin Skin Exam: absent: Cyanosis Assessment and Plan (1) Colitis Status: Acute (2) ESRD (end stage renal disease) on dialysis Assessment & Plan: Patient with end stage renal disease on maintenance hemodialysis. Sunday. dialysis order in place potassium bath 3 meq Sodium bath 138 bicarbonate bath 34 Ultrafiltration around 750 to 1000 mL as tolerated give albumin 25% 50 ml X 2 on HD for hypotension as needed. Anemia EPO on dialysis.hemoglobin up today 8.8 S/P active rectal bleeding ,patient was transfused ,multiple transfusion secondary to ischemic colitis which she has been diagnosed from previous hospitalization. Status post hemicolectomy on Sunday11/09/17 Status post multiple blood transfusion Other diagnosis patient admitted with acute CVA for rehabilitation. Status post cardiac arrest Status post massive bleeding from AV fistula. History of hyperphosphatemia History of secondary hyperparathyroidism Diabetes Mellitus Status: Acute (3) Gastrointestinal hemorrhage Status: Acute (4) History of cardiac arrest Status: Acute (5) Ischemic colitis Status: Acute (6) Shock Status: Acute
--- NOTE | 2017-11-16 07:27 | CP.CCUPN ---
CCU Subjective - Physician Review Subjective (Free Text): Sleeping, and easily arousable, denies any new CP or SOB at bed rest. She remains on TPN at 50ml /hr; has been tolerating PO liquids. No bleeding noted. +liquid brownish fluid from L ostomy. Other VS and I/Os reviewed. No fever spikes overnight. ROS: No other pertinent negs or positives on 10+ system review PMSFH: All other Nursing and physician documentation reviewed to date; no new pertinent info noted relevant to current medical problems. EXAM- HEENT: no icterus, no gaze preference, pupils equal and reactive NECK: No JVD, supple, carotids equal upstroke bilat/no bruits, R IJV dialysis permacath- site clean, no redness / tenderness /discharge CHEST: decreased BS bases, no wheezes audible HEART: regular tachy, distant, S1S2, no rubs. ABD: soft, no distention, no tympany, + palp tenderness periumbilical area, BS hypoactive EXT: bilateral LE edema, as above. No peripheral/ digital cyanosis, no calf tenderness or palpable cords, distal pulses intact and symmetrical. Old LUE AVF NEURO: left hemiparesis, moves R extremities spontaneously SKIN: no rashes, warm and dry. LABS: WBC= 11.6 HGB= 8.8 PLTs= 177K Tt=675 K= 4.4 CL=98 HCO3= 26 BUN/Cr= 27/3.7 BS= 157 Phos= 1.7 Mg= 1.7 TG= 162 IMPRESSION / MAJOR PROBLEMS NOW: 1. s/p Recurrent LGIB 2 Ischemic colitis, s/p Colectomy 2. s/p Hypovolemic Shock 2#1 3. Acute on Chronic Disease Anemia 4. h/o Resuscitation form Cardiac / Resp Arrest 5. ESRD on HD 6. 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 Advance PO diet / supplemental nutritional shakes as tolerated. Allow patient to finish TPN today then stop. 2. Needs PICC line, Nephrology to clear use of RUE for IV access. Upper extremities neg for DVT/ SVT on Doppler US eval yesterday. 3. HGb stable, hold on further transfusions, Platelets improving. 4. Try to mobilize, get OOB to chair, encourage more incentive Spirometry CCU Objective - Vital Signs / Intake & Output Vital Signs (Last 4 hours): Vital Signs Temp Pulse Resp BP Pulse Ox 11/16/17 06:00 92 H 14 136/90 99 11/16/17 04:00 98.6 F 103 H 23 137/71 97 Intake and Output (Last 8hrs): Intake & Output 11/15/17 11/16/17 11/16/17 22:59 06:59 14:59 Intake Total 850 425 Output Total 240 45 Balance 610 380 Weight 188 lb 9.6 oz Intake: IV 150 400 Oral 100 25 TPN/PPN 600 Output: Drainage 240 45 Right Lower Abdomen 240 45 Other: # Bowel Movements 0
--- NOTE | 2017-11-16 08:34 | OP ---
PROCEDURE DATE: 11/09/2017 PREOPERATIVE DIAGNOSIS: Ischemic colitis. POSTOPERATIVE DIAGNOSIS: Ischemic colitis. PROCEDURES: 1. Exploratory laparotomy. 2. Lower anterior resection. 3. Mobilization of splenic flexure. 4. Intraoperative colonoscopy. 5. Extensive enterolysis. SURGEON: Serafin Dia MD. TYPE OF ANESTHESIA: General endotracheal. DESCRIPTION OF PROCEDURE: The patient was brought into the operating room and placed on the operating room table in supine position. After smooth induction of general endotracheal anesthesia, Venodyne boots were placed in the both legs and prophylactic antibiotics were given. The patient's position was changed using Mariusz stirrups in lithotomy position and the peritoneum was also prepped and draped. Using an adult colonoscope, a colonoscopy was performed up to the hepatic flexure, which appeared to be extensive ischemic changes with mucosa and ulcers as well as spontaneous bleeding and friable mucosa all the way up to 6 cm from the anal verge. The remaining colon appeared to be normal, although the bowel prep was suboptimal. The patient's abdomen was prepped and draped in the usual sterile fashion and a #10 blade was used to perform a supra and infraumbilical midline incision all the way to the pubis. The incision was brought down to subcutaneous tissue using Bovie electrocautery. The linea alba was identified and incised and the peritoneal cavity was accessed. Bookwalter retractor was placed for better exposure and the entire abdomen was inspected and palpated. They appeared to be adhesions between the ischemic left colon and retroperitoneal reflection and the ischemia appeared to be full thickness and the small bowel and uterus. A sharp and blunt dissection ensued treating the ischemic colon from the small bowel as well as the mesentery. In the similar fashion, the ischemic colon, which was adherent to the posterior wall of the uterus was dissected free all the way to the peritoneal reflection. The left colon from the left lateral abdominal wall along the line of Toldt. A SHREYAS 75 green stapler was fired across the distal descending colon and TA 60 stapler was fired to the upper rectum right below the peritoneal reflection. The corresponding mesocolon was secured in sequential fashion using 10 mm LigaSure and the specimen was removed and sent to pathology for appropriate label and for permanent sections. The abdomen was irrigated with copious amounts of warm normal saline and because of the condition of the colon, it was safe to perform end colostomy and not the primary anastomosis because of the high risk of leak and failure. The colostomy was performed in the left lower quadrant and secured and also staple line was removed and full thickness stitches were placed with 2-0 Vicryl and secured with dermis. Mucosa appeared to be viable and there was tension to the colostomy. A #10 KITA was placed deep in the pelvis to secured the skin in the right lower quadrant with 2-0 silk stitch. The abdomen was closed in 2 layers using #1 continuous loop PDS reinforced by retention sutures and the skin was closed at 1 inch of friable henry and opening between the henry back to 1 inch iodoform gauze and sterile dressings were applied. At the end of the surgery, the counts of instruments, gauze, and needles were correct x2. The patient tolerated the surgery well and was transferred in stable condition to the recovery room. Serafin Dia MD
--- NOTE | 2017-11-16 10:55 | CP.PCM.PN ---
Subjective - Date & Time of Evaluation Date of Evaluation: 11/16/17 Time of Evaluation: 10:00 - Subjective Subjective: Patient seen and examined bedside. Chronically ill, obese female lying in bed and appears more awake and alert today.pain is well controlled. receiving HD at present. Hemodynamically stable, afebrile BP 156/91 HR 107 afebrile No acute issues overnight. Surgical wound healing well , with dry dressing , ans packing KITA drain to Right quadrant with 285 ml sero sanguinous drainage With good bowel sounds and stoma with minimal brownish output . On TPN and clear liquid Objective - Vital Signs/Intake and Output Vital Signs (last 24 hours): Temp Pulse Resp BP Pulse Ox 98.7 F 107 H 17 156/91 H 100 11/16/17 08:00 11/16/17 10:00 11/16/17 10:00 11/16/17 10:00 11/16/17 10:00 Intake and Output: 11/16/17 11/16/17 06:59 18:59 Intake Total 575 150 Output Total 135 Balance 440 150 - Medications Medications: Current Medications Acetaminophen (Tylenol 325mg Tab) 975 mg PO Q8 [facility] Last Admin: 11/16/17 00:04 Dose: 975 mg Aspirin (Ecotrin) 81 mg PO DAILY [facility] Last Admin: 11/15/17 08:54 Dose: 81 mg Atorvastatin Calcium (Lipitor) 20 mg PO DAILY [facility] Last Admin: 11/15/17 08:55 Dose: 20 mg Epoetin Gonzalo (Procrit) 5,000 unit IV MWF [facility] Last Admin: 11/14/17 09:50 Dose: 5,000 unit Heparin Sodium (Porcine) (Heparin) 5,000 units SC Q8 [facility] PRN Reason: Protocol Last Admin: 11/16/17 00:05 Dose: 5,000 units Insulin Human Regular (Humulin R) 0 units SC ACCU-CHECK [facility] PRN Reason: Protocol Last Admin: 11/16/17 06:03 Dose: 2 units Ondansetron HCl (Zofran Inj) 4 mg IVP Q4 PRN PRN Reason: Nausea/Vomiting Oxycodone HCl (Oxycodone Immediate Release Tab) 5 mg PO Q6 PRN PRN Reason: Pain, moderate (4-7) Last Admin: 11/14/17 12:04 Dose: 5 mg Pantoprazole Sodium (Protonix Inj) 40 mg IVP DAILY [facility] Last Admin: 11/15/17 09:06 Dose: 40 mg - Labs Labs: 11/16/17 04:30 11/16/17 04:30 PT 12.7 Seconds (9.8-13.1) 11/10/17 16:14 INR 1.1 (0.9-1.2) 11/10/17 16:14 APTT 39.3 Seconds (25.6-37.1) H D 11/10/17 16:14 - Constitutional Appears: Non-toxic, Chronically Ill, Other (obese) - Head Exam Head Exam: ATRAUMATIC, NORMOCEPHALIC - Eye Exam Eye Exam: EOMI, PERRL Pupil Exam: NORMAL ACCOMODATION - ENT Exam ENT Exam: Mucous Membranes Moist, Normal Exam - Neck Exam Neck Exam: Normal Inspection - Respiratory Exam Respiratory Exam: Clear to Ausculation Bilateral, NORMAL BREATHING PATTERN. absent: Rales, Rhonchi, Wheezes, Respiratory Distress - Cardiovascular Exam Cardiovascular Exam: Tachycardia. absent: JVD - GI/Abdominal Exam GI & Abdominal Exam: Tenderness (with palpation ,), Normal Bowel Sounds Additional comments: midline surgical incision healing well with henry and packing drain to right mid quadrant with sero sanguinous output iliostomy to left mid abdomen with brownish output - Rectal Exam Rectal Exam: Deferred - Extremities Exam Extremities Exam: Pedal Edema Additional comments: anasarca right hand dorsal aspect open wound 3x 3 cm - Neurological Exam Neurological Exam: Alert, Awake, CN II-XII Intact, Oriented x3 Additional comments: right hand dorsal aspect open wound 3x 3 cm - Psychiatric Exam Psychiatric exam: Normal Affect - Skin Skin Exam: Dry, Warm Assessment and Plan - Assessment and Plan (Free Text) Assessment: 67 yo female with multiple medical problems like ESRD on dialysis, Type 2 DM, HTN, obesity, history of old CVA in 2012, atrial fibrillation,with 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 She also had a cardiac arrest and respiratory failure requiring intubation . After improving she was transferred to acute rehab for physical therapy where she continued to have some episodes of GI bleed. On 11/04 she started to have worsening of rectal bleed , with blood clots per rectum hypotension , fever Tmax 102 and some lower abdominal tenderness. Full septic panel was ordered , Cipro and Flagyl given , IVF bolus started . Patient was then admitted to ICU with diagnosis of hypovolemic shock and GI bleed and rule out sepsis . Her colonoscopy performed at [facility] had shown : diffuse severe inflammation with ulcerations in the entire colon, severe ischemic colitis mucosal ulcerations up to 40cm dinorah. GI ,surgery and ID consulted Underwent Left Colon resection with ileostomy on 11/09 . Transfused total 6 unit PRBC . At present in ICU , hemodynamically stable, on TPN . With minimal output from ileostomy and normal BS 1. Hypovolemic shock secondary to GI bleed-- resolved off Levophed drip since 11/05 s/p 6 unit PRBC transfusion on TPN since 11/11 as per surgery cont clear liquid diet and advance as tolerated Promote ambulation with PT 2.Recurrent lower GI bleed due to Ischemic colitis s/p left colon resection with ileostomy 11/09 Complains of pain Oxycodone pRN for pain s/p 6 unit PRBC transfusion . Received DDAVP and FFP Minimal output from stoma overnight. Continue liquid diet and advance as tolerated Promote ambulation and out of bed to chair Continue TPN and monitor electrolytes. Will need to remove TLC from groin and place PICC line Wound care as per surgery Received total 10 days of empiric antibiotics with Cipro and flagyl 5 days and Zosyn 5 days 3. Acute on chronic anemia-stable GI blood loss on top of chronic kidney disease anemia s/p 6 unit PRBC transfusion continue Epogen 4. History of recent cardiac arrest/respiratory arrest 5. ESRD on Dialysis MWF Nephro consulted continue HD as scheduled Had HD today with 2000 ml fluid removal 6. History of R CVA 10/24/17 restarted ASA and Statin 7. Paroxysmal Afib patient is in and out SR and afib on monitor, rate controlled continue to monitor closely no therapeutic anticoag for now on ASA 8. DM Type II accuchecks and insulin coverage off PO meds on TPN monitor electrolytes , accuchecks 9. DVT prophylaxis SCDs started Heparin for DVT prophylaxis as per surgery
[2017-11-16] MEDS: Epoetin Alfa 20000 UNIT/ML Inj IV SCH (11:05)
[2017-11-16 14:55] LABS: INR 0.9 (0.9-1.2); PROTHROMBIN TIME 10.1 Seconds (9.8-13.1)
[2017-11-16] MEDS ORDERED: LIDOCAINE 2% 10ML 20 MG/ML VIAL IJ ONE (15:09)
--- NOTE | 2017-11-16 15:29 | PCM.SURG1 ---
Surgeon's Initial Post Op Note - Surgeon's Notes Surgeon: Venkat Odell MD Tack Cutter: None Type of Anesthesia: Local Pre-Operative Diagnosis: ischemic colitis requiring TPN Operative Findings: patent right brachial vein. catheter length: 37 cm. catheter tip: cavoatrial junction Post-Operative Diagnosis: same Operation Performed: RUE PICC Insertion Specimen/Specimens Removed: n/a Estimated Blood Loss: EBL {In ML}: 3 Date of Surgery/Procedure: 11/16/17 Time of Surgery/Procedure: 15:20
--- NOTE | 2017-11-16 15:32 | PCM.IRP ---
Chief Complaint: IR consulted for PICC insertion. Pt on HD, nephrology society recommends against PICC in these patients and instead recommends tunneled catheter insertion. Pt in ICU so cannot get tunneled catheter due to increased infection risk. Attempts to reach Dr. Goetz directly were unsuccessful. Dr. Lockett stated she spoke with Dr. Goetz who said the patient has good HD access via LUE and it is OK to place RUE PICC. Objective - Vital Signs/Intake and Output Vital Signs (last 24 hours): Vital Signs - 24 hr 11/15/17 11/15/17 11/15/17 16:00 18:00 20:00 Temperature 97.9 F 99.2 F Pulse Rate 106 H 95 H 110 H Respiratory 17 12 26 H Rate Blood Pressure 141/71 144/102 H 173/84 H O2 Sat by Pulse 100 99 96 Oximetry 11/15/17 11/15/17 11/16/17 22:00 23:00 00:00 Temperature 99.1 F Pulse Rate 98 H 102 H 107 H Respiratory 14 16 21 Rate Blood Pressure 159/86 H 129/65 165/69 H O2 Sat by Pulse 98 98 97 Oximetry 11/16/17 11/16/17 11/16/17 01:08 02:00 04:00 Temperature 98.6 F Pulse Rate 101 H 109 H 103 H Respiratory 23 23 23 Rate Blood Pressure 143/68 144/84 137/71 O2 Sat by Pulse 97 95 97 Oximetry 11/16/17 11/16/17 11/16/17 06:00 08:00 10:00 Temperature 98.7 F Pulse Rate 92 H 98 H 107 H Respiratory 14 17 17 Rate Blood Pressure 136/90 160/81 H 156/91 H O2 Sat by Pulse 99 100 100 Oximetry 11/16/17 11/16/17 11/16/17 12:00 14:00 15:08 Temperature 98.8 F 99.6 F Pulse Rate 106 H 102 H 116 H Respiratory 16 16 26 H Rate Blood Pressure 149/76 147/87 158/69 H O2 Sat by Pulse 100 100 98 Oximetry Intake and Output (last 12 hours): Intake & Output 11/15/17 11/16/17 11/16/17 18:59 06:59 18:59 Intake Total 700 575 600 Output Total 150 135 40 Balance 550 440 560 Weight 188 lb 9.6 oz Intake: IV 550 350 Oral 100 25 250 TPN/PPN 600 Output: Drainage 150 135 40 Right Lower Abdomen 150 135 40 Other: # Bowel Movements 0 - Medications Medications: Current Medications Acetaminophen (Tylenol 325mg Tab) 975 mg PO Q8 [facility] Last Admin: 11/16/17 12:16 Dose: Not Given Aspirin (Ecotrin) 81 mg PO DAILY [facility] Last Admin: 11/16/17 12:15 Dose: 81 mg Atorvastatin Calcium (Lipitor) 20 mg PO DAILY [facility] Last Admin: 11/16/17 12:16 Dose: 20 mg Epoetin Gonzalo (Procrit) 5,000 unit IV MWF [facility] Last Admin: 11/16/17 11:05 Dose: 5,000 unit Heparin Sodium (Porcine) (Heparin) 5,000 units SC Q8 [facility] PRN Reason: Protocol Last Admin: 11/16/17 12:15 Dose: 5,000 units Insulin Human Regular (Humulin R) 0 units SC ACCU-CHECK [facility] PRN Reason: Protocol Last Admin: 11/16/17 11:36 Dose: Not Given Ondansetron HCl (Zofran Inj) 4 mg IVP Q4 PRN PRN Reason: Nausea/Vomiting Oxycodone HCl (Oxycodone Immediate Release Tab) 5 mg PO Q6 PRN PRN Reason: Pain, moderate (4-7) Last Admin: 11/14/17 12:04 Dose: 5 mg Pantoprazole Sodium (Protonix Inj) 40 mg IVP DAILY [facility] Last Admin: 11/16/17 12:16 Dose: 40 mg - Labs Labs (last 24 hours): Laboratory Results - last 24 hr 11/15/17 11/15/17 11/16/17 17:50 21:07 04:30 WBC 11.6 H RBC 2.97 L Hgb 8.8 L Hct 27.0 L MCV 91.1 MCH 29.5 MCHC 32.4 L RDW 19.1 H Plt Count 177 PT INR Sodium Potassium Chloride Carbon Dioxide Anion Gap BUN Creatinine Est GFR ( Amer) Est GFR (Non-Af Amer) POC Glucose (mg/dL) 150 H 170 H Random Glucose Calcium 11/16/17 11/16/17 11/16/17 04:30 05:33 11:16 WBC RBC Hgb Hct MCV MCH MCHC RDW Plt Count PT INR Sodium 133 Potassium 4.4 Chloride 98 Carbon Dioxide 26 Anion Gap 13 BUN 27 H Creatinine 3.7 H Est GFR ( Amer) 15 Est GFR (Non-Af Amer) 12 POC Glucose (mg/dL) 169 H 125 H Random Glucose 157 H Calcium 9.8 11/16/17 14:01 WBC RBC Hgb Hct MCV MCH MCHC RDW Plt Count PT 10.1 INR 0.9 Sodium Potassium Chloride Carbon Dioxide Anion Gap BUN Creatinine Est GFR ( Amer) Est GFR (Non-Af Amer) POC Glucose (mg/dL) Random Glucose Calcium
[2017-11-16] MEDS: oxyCODONE 5 mg Immediate Release Tab PO PRN (23:37)
[2017-11-17 05:30] LABS: HEMOGLOBIN 8.5 g/dL (12.0-16.0); MEAN CELL VOLUME 90.4 fl (81.0-99.0); MEAN CORPUSCULAR HEMOGLOBIN 29.5 pg (27.0-31.0); MEAN CORPUSCULAR HGB CONC 32.6 g/dL (33.0-37.0); RBC 2.87 Mil/uL (3.80-5.20); RED CELL DISTRIBUTION WIDTH 18.6 % (11.5-14.5); WHITE BLOOD COUNT 10.6 K/uL (4.8-10.8)
[2017-11-17 06:34] LABS: CALCIUM 9.5 mg/dL (8.4-10.2)
--- NOTE | 2017-11-17 07:32 | CP.PCM.PN ---
Subjective - Date & Time of Evaluation Date of Evaluation: 11/17/17 Time of Evaluation: 09:00 - Subjective Subjective: Patient seen and examined bedside.Hemodynamically stable, afebrile BP 142/83 No acute issues overnight. Surgical wound healing well , with dry dressing , and packing KITA drain to Right quadrant with 100 ml sero sanguinous drainage With good bowel sounds and stoma with minimal brownish output . On TPN and clear liquid Objective - Vital Signs/Intake and Output Vital Signs (last 24 hours): Temp Pulse Resp BP Pulse Ox 98.4 F 104 H 16 142/83 100 11/17/17 04:00 11/17/17 06:00 11/17/17 06:00 11/17/17 06:00 11/17/17 06:00 Intake and Output: 11/17/17 11/17/17 06:59 18:59 Intake Total 75 Output Total 190 Balance -115 - Medications Medications: Current Medications Acetaminophen (Tylenol 325mg Tab) 975 mg PO Q8 [facility] Last Admin: 11/17/17 00:17 Dose: 975 mg Aspirin (Ecotrin) 81 mg PO DAILY [facility] Last Admin: 11/16/17 12:15 Dose: 81 mg Atorvastatin Calcium (Lipitor) 20 mg PO DAILY [facility] Last Admin: 11/16/17 12:16 Dose: 20 mg Epoetin Gonzalo (Procrit) 5,000 unit IV MWF [facility] Last Admin: 11/16/17 11:05 Dose: 5,000 unit Heparin Sodium (Porcine) (Heparin) 5,000 units SC Q8 [facility] PRN Reason: Protocol Last Admin: 11/17/17 00:18 Dose: 5,000 units Insulin Human Regular (Humulin R) 0 units SC ACCU-CHECK [facility] PRN Reason: Protocol Last Admin: 11/16/17 22:56 Dose: Not Given Ondansetron HCl (Zofran Inj) 4 mg IVP Q4 PRN PRN Reason: Nausea/Vomiting Oxycodone HCl (Oxycodone Immediate Release Tab) 5 mg PO Q6 PRN PRN Reason: Pain, moderate (4-7) Last Admin: 11/16/17 23:37 Dose: 5 mg Pantoprazole Sodium (Protonix Inj) 40 mg IVP DAILY [facility] Last Admin: 11/16/17 12:16 Dose: 40 mg - Labs Labs: 11/17/17 04:39 05/12/18 04:39 PT 10.1 Seconds (9.8-13.1) 11/16/17 14:01 INR 0.9 (0.9-1.2) 11/16/17 14:01 APTT 39.3 Seconds (25.6-37.1) H D 11/10/17 16:14 - Constitutional Appears: Chronically Ill, Other (obese) - Head Exam Head Exam: ATRAUMATIC, NORMOCEPHALIC - Eye Exam Eye Exam: PERRL Pupil Exam: NORMAL ACCOMODATION - ENT Exam ENT Exam: Mucous Membranes Moist, Normal Exam - Neck Exam Neck Exam: Normal Inspection - Respiratory Exam Respiratory Exam: Clear to Ausculation Bilateral, NORMAL BREATHING PATTERN. absent: Rhonchi, Wheezes - Cardiovascular Exam Cardiovascular Exam: Tachycardia. absent: JVD - GI/Abdominal Exam GI & Abdominal Exam: Soft Additional comments: midline surgical incision with henry and packing healing well iliostomy to left mid abdomen with healthy stoma and brownish output KITA drain to right mid abdomen with sero sanguinous output - Rectal Exam Rectal Exam: Deferred - Extremities Exam Extremities Exam: Pedal Edema (2 +) Additional comments: upper extremity edema 3 + right hand dorsal aspect open wound 3 x 3 cm - Neurological Exam Neurological Exam: Alert, Awake, CN II-XII Intact, Oriented x3 Additional comments: sleepy - Psychiatric Exam Psychiatric exam: Normal Affect - Skin Skin Exam: Dry, Warm Assessment and Plan - Assessment and Plan (Free Text) Assessment: 67 yo female with multiple medical problems like ESRD on dialysis, Type 2 DM, HTN, obesity, history of old CVA in 2011, atrial fibrillation,with history of 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 where she developed GI bleed with hemorrhagic shock and severe ischemic colitis diagnosed with colonoscopy . She also had a cardiac arrest and respiratory failure requiring intubation . After improving she was transferred to acute rehab for physical therapy where she continued to have some episodes of GI bleed. On 11/04 she started to have worsening of rectal bleed , with blood clots per rectum hypotension , fever Tmax 102 and some lower abdominal tenderness. Full septic panel was ordered , Cipro and Flagyl given , IVF bolus started . Patient was then admitted to ICU with diagnosis of hypovolemic shock and GI bleed and rule out sepsis . Her colonoscopy performed at [facility] had shown : diffuse severe inflammation with ulcerations in the entire colon, severe ischemic colitis mucosal ulcerations up to 40cm dinorah. GI ,surgery and ID consulted Underwent Left Colon resection with ileostomy on 11/09 . Transfused total 6 unit PRBC . At present in ICU , hemodynamically stable, on TPN . With minimal output from ileostomy and normal BS. PO intake is limited 1. Hypovolemic shock secondary to GI bleed-- resolved off Levophed drip since 11/05 s/p 6 unit PRBC transfusion on TPN since 11/11 as per surgery cont clear liquid diet and advance as tolerated Promote ambulation with PT 2.Recurrent lower GI bleed due to Ischemic colitis s/p left colon resection with ileostomy 11/09 Complains of pain Oxycodone pRN for pain s/p 6 unit PRBC transfusion . Received DDAVP and FFP Minimal output from stoma overnight. Continue liquid diet and advance as tolerated Promote ambulation and out of bed to chair Continue TPN and monitor electrolytes. removed TLC from right groin and placed RUE PICC line 11/16 Wound care as per surgery Received total 10 days of empiric antibiotics with Cipro and flagyl 5 days and Zosyn 5 days 3. Acute on chronic anemia-stable GI blood loss on top of chronic kidney disease anemia s/p 6 unit PRBC transfusion continue Epogen 4. History of recent cardiac arrest/respiratory arrest 5. ESRD on Dialysis MWF Nephro consulted continue HD as scheduled Had HD 11/16 with 2000 ml fluid removal 6. History of R CVA 10/24/17 on ASA and Statin 7. Paroxysmal Afib patient is in and out SR and afib on monitor, rate controlled continue to monitor closely no therapeutic anticoag for now on ASA 8. DM Type II accuchecks and insulin coverage off PO meds on TPN monitor electrolytes , accuchecks 9. DVT prophylaxis SCDs started Heparin for DVT prophylaxis as per surgery
[2017-11-17] MEDS: Insulin Regular 100 units/ml SC SCH ×3 (08:18→17:00)
--- NOTE | 2017-11-17 12:25 | CP.CCUPN ---
CCU Subjective - Physician Review Events Since Last Encounter (Free Text): 11/17/17 12:23 alert, mild abdominal pain. CCU Objective - Vital Signs / Intake & Output Vital Signs (Last 4 hours): Vital Signs Temp Pulse Resp BP Pulse Ox 11/17/17 12:00 98.0 F 99 H 21 148/68 100 11/17/17 10:00 110 H 24 100/45 L 100 Intake and Output (Last 8hrs): Intake & Output 11/16/17 11/17/17 11/17/17 22:59 06:59 14:59 Intake Total 575 50 200 Output Total 50 190 Balance 525 -140 200 Intake: IV 100 0 Oral 475 50 200 Output: Drainage 50 90 Right Lower Abdomen 50 90 Urine 0 Urine, Voided 0 Stool 100 - Physical Exam Head: Positive for: Atraumatic, Normocephalic Pupils: Positive for: PERRL Extroacular Muscles: Positive for: EOMI Conjunctiva: Positive for: Normal. Negative for: Injected, Icteric Mouth: Positive for: Moist Mucous Membranes Nose (Internal): Positive for: Normal Inspection Neck: Positive for: Normal Range of Motion, Trachea Midline. Negative for: Meningeal Signs, MIDLINE TENDERNESS, Paraspinal Tenderness, JVD, Lymphadenopathy , Bruit, Other Respiratory/Chest: Positive for: Clear to Auscultation, Good Air Exchange. Negative for: Respiratory Distress, Accessory Muscle Use Cardiovascular: Positive for: Regular Rate and Rhythm, Normal S1, S2, Peripheal Pulses Present. Negative for: Murmurs, Irregular Rhythm Abdomen: Positive for: Tenderness, Normal Bowel Sounds Upper Extremity: Positive for: Normal Inspection Lower Extremity: Positive for: Normal Inspection Neurological: Positive for: GCS=15, CN II-XII Intact, Speech Normal, Motor Func Grossly Intact, Normal Sensory Function Psychiatric: Positive for: Alert, Oriented x 3 - Medications Active Medications: Active Medications Generic Name Dose Route Start Last Admin Trade Name Freq PRN Reason Stop Dose Admin Acetaminophen 975 mg 11/13/17 17:00 11/17/17 08:22 Tylenol 325mg Tab PO 975 mg Q8 [facility] Administration Aspirin 81 mg 11/15/17 09:00 11/17/17 08:17 Ecotrin PO 81 mg DAILY [facility] Administration Atorvastatin Calcium 20 mg 11/15/17 09:00 11/17/17 08:20 Lipitor PO 20 mg DAILY [facility] Administration Epoetin Gonzalo 10,000 unit 11/19/17 09:22 Procrit IV MWF [facility] Heparin Sodium (Porcine) 5,000 units 11/11/17 09:00 11/17/17 08:17 Heparin SC 5,000 units Q8 [facility] Administration Protocol Insulin Human Regular 0 units 11/04/17 17:00 11/17/17 11:39 Humulin R SC Not Given ACCU-CHECK [facility] Protocol Ondansetron HCl 4 mg 11/09/17 12:34 Zofran Inj IVP Q4 PRN Nausea/Vomiting Oxycodone HCl 5 mg 11/13/17 12:41 11/16/17 23:37 Oxycodone Immediate Release Tab PO 5 mg Q6 PRN Administration Pain, moderate (4-7) Pantoprazole Sodium 40 mg 11/13/17 09:00 11/17/17 08:20 Protonix Inj IVP 40 mg DAILY [facility] Administration - Patient Studies Lab Studies: Microbiology Studies 11/13/17 16:15 Blood Culture - Preliminary Blood-Thru Central Line NO GROWTH AFTER 3 DAYS Lab Studies 11/17/17 11/17/17 11/17/17 Range/Units 11:36 07:10 04:39 WBC (4.8-10.8) K/uL RBC (3.80-5.20) Mil/uL Hgb (12.0-16.0) g/dL Hct (34.0-47.0) % MCV (81.0-99.0) fl MCH (27.0-31.0) pg MCHC (33.0-37.0) g/dL RDW (11.5-14.5) % Plt Count (130-400) K/uL PT (9.8-13.1) Seconds INR (0.9-1.2) Sodium 133 (132-148) mmol/l Potassium 4.2 (3.6-5.0) MMOL/L Chloride 99 (98-107) mmol/L Carbon Dioxide 26 (22-30) mmol/L Anion Gap 12 (10-20) BUN 19 H (7-17) mg/dl Creatinine 2.8 H (0.7-1.2) mg/dl Est GFR ( Amer) 20 Est GFR (Non-Af Amer) 17 POC Glucose (mg/dL) 113 H 96 (65-110) mg/dL Random Glucose 96 (65-105) mg/dL Calcium 9.5 (8.4-10.2) mg/dL 11/17/17 11/16/17 11/16/17 Range/Units 04:39 21:23 15:58 WBC 10.6 (4.8-10.8) K/uL RBC 2.87 L (3.80-5.20) Mil/uL Hgb 8.5 L (12.0-16.0) g/dL Hct 25.9 L (34.0-47.0) % MCV 90.4 (81.0-99.0) fl MCH 29.5 (27.0-31.0) pg MCHC 32.6 L (33.0-37.0) g/dL RDW 18.6 H (11.5-14.5) % Plt Count 178 (130-400) K/uL PT (9.8-13.1) Seconds INR (0.9-1.2) Sodium (132-148) mmol/l Potassium (3.6-5.0) MMOL/L Chloride (98-107) mmol/L Carbon Dioxide (22-30) mmol/L Anion Gap (10-20) BUN (7-17) mg/dl Creatinine (0.7-1.2) mg/dl Est GFR ( Amer) Est GFR (Non-Af Amer) POC Glucose (mg/dL) 115 H 142 H (65-110) mg/dL Random Glucose (65-105) mg/dL Calcium (8.4-10.2) mg/dL 11/16/17 Range/Units 14:01 WBC (4.8-10.8) K/uL RBC (3.80-5.20) Mil/uL Hgb (12.0-16.0) g/dL Hct (34.0-47.0) % MCV (81.0-99.0) fl MCH (27.0-31.0) pg MCHC (33.0-37.0) g/dL RDW (11.5-14.5) % Plt Count (130-400) K/uL PT 10.1 (9.8-13.1) Seconds INR 0.9 (0.9-1.2) Sodium (132-148) mmol/l Potassium (3.6-5.0) MMOL/L Chloride (98-107) mmol/L Carbon Dioxide (22-30) mmol/L Anion Gap (10-20) BUN (7-17) mg/dl Creatinine (0.7-1.2) mg/dl Est GFR ( Amer) Est GFR (Non-Af Amer) POC Glucose (mg/dL) (65-110) mg/dL Random Glucose (65-105) mg/dL Calcium (8.4-10.2) mg/dL Laboratory Results - last 24 hr 11/16/17 11/16/17 11/16/17 14:01 15:58 21:23 WBC RBC Hgb Hct MCV MCH MCHC RDW Plt Count PT 10.1 INR 0.9 Sodium Potassium Chloride Carbon Dioxide Anion Gap BUN Creatinine Est GFR ( Amer) Est GFR (Non-Af Amer) POC Glucose (mg/dL) 142 H 115 H Random Glucose Calcium 11/17/17 11/17/17 11/17/17 04:39 04:39 07:10 WBC 10.6 RBC 2.87 L Hgb 8.5 L Hct 25.9 L MCV 90.4 MCH 29.5 MCHC 32.6 L RDW 18.6 H Plt Count 178 PT INR Sodium 133 Potassium 4.2 Chloride 99 Carbon Dioxide 26 Anion Gap 12 BUN 19 H Creatinine 2.8 H Est GFR ( Amer) 20 Est GFR (Non-Af Amer) 17 POC Glucose (mg/dL) 96 Random Glucose 96 Calcium 9.5 11/17/17 11:36 WBC RBC Hgb Hct MCV MCH MCHC RDW Plt Count PT INR Sodium Potassium Chloride Carbon Dioxide Anion Gap BUN Creatinine Est GFR ( Amer) Est GFR (Non-Af Amer) POC Glucose (mg/dL) 113 H Random Glucose Calcium Fingerstick Blood Sugar Results: 113 Review of Systems - Review of Systems All systems: reviewed and no additional remarkable complaints except - Gastrointestinal Gastrointestinal: Abdominal Pain Critical Care Progress Note - Nutrition Nutrition: Nutrition Category Date Time Status Renal Diet [DIET] Diets 11/16/17 Lunch Active Assessment/Plan (1) Ischemic colitis Assessment and plan: 67yo F. PMHx ESRD on HD. recent bleeding from fistula c/b hemorrhagic shock, ischemic stroke, ischemic colitis eventually requiring left hemicolectomy with colostomy. Neuro: alert but weak, pain controlled with oxycodone prn and tylenol prn. Pulm: no acute issues, breathing spontaneously on room air. CV: hemodynamically stable. tachycardia secondary to pain. Hem: anemia of chronic disease, continue procrit Renal: no acute issues Endo: no acutes issues GI: advancing diet to full liquid diet. ID: off of abx, doing well. DVT proph - heparin sq GI proph - protonix OOB to chair/needs daily PT Code status - full code Critical Care Time spent 35 minutes Multi-disciplinary rounds were performed with house staff, nursing, speech therapy, respiratory therapy, pharmacy and nutrition with integrated input from the primary team/attending and other consulting services. The documented time is cumulative and includes review of patient data/exams/labs/chart review and examination of the patient on rounds and throughout the day; time is exclusive of any procedures or teaching time. Current Visit: Yes Status: Acute
[2017-11-17] MEDS: oxyCODONE 5 mg Immediate Release Tab PO PRN (15:25)
--- NOTE | 2017-11-17 17:22 | CP.PCM.PN ---
Subjective - Date & Time of Evaluation Date of Evaluation: 11/17/17 Time of Evaluation: 17:19 - Subjective Subjective: Follow up Nephrology Consultation Note Assessment: stable GI bleed, ischemic colitis s/p hemicolectomy Diabetic chronic Kidney Disease (E11.22) Hypertensive Chronic Kidney Disease (I12.0) End stage renal disease (N18.6) dependence on hemodialysis (Z99.2) (MWF) via permacath Anemia (D64.9), Hyperphosphatemia (E83.39), Secondary Hyperparathyroidism (E21.1 ), HTN (I12.0) hx of CVA Plan: Will plan for HD sunday as ordered. Continue with Nephrovite 1 tab/day. PRBC as needed for anemia. On DEYA as epogen with HD, last Hb 8.5 hold phos binders, last phos level 1.7 BP control with meds as ordered. Patient not on RAAS sony as BP low Glycemic control, Dialysis consistent diet Further work up/management as per primary team Dose meds/antibiotics (if needed) for ESRD status. Avoid fleets enema/magnesium based laxatives. Thanks for allowing me to participate in care of your patient. Will follow patient with you. Please call if any Qs. Dr Marvin Sapp Office: [phone] Subjective: Noted events overnight. Patients feels okay. Denies chest pain, palpitation, shortness of breath, leg swelling. All other negative Physical Examination: General Appearance: Comfortable, in no acute respiratory distress, co-operative . Vitals reviewed and noted as below Head; Atraumatic, normocephalic ENT: no ulcers no thrush. Tongue is midline. Oropharynx: no rash or ulcers. EYES: Pupils are equal, round and reactive to light accommodation. Eye muscles and extraocular movement intact. Sclera is anicteric. Neck; supple no lymphadenopathy, no thyromegaly or bruit Lungs: Normal respiratory rate/effort. Breath sounds bilateral equal and clear Heart: Normal rate. s1s2 normal. No rub or gallop. Extremities: 1+ edema. No varicose veins Neurological: Patient is awake alert but not much communciative Skin: Warm and dry. Normal turgor. No rash. Palpitation: Normal elasticity for age Abdomen: Abdomen is soft. Bowel sounds +. There is no abdominal tenderness, no guarding/rigidity or organomegaly. has left colostomy Psych: limited insight MSK: no joint tenderness or swelling. Digits and nails normal, no deformity : kidney or bladder not palpable Access: permacath Labs/imaging reviewed. Past medical history, past surgical history, family history, social history, allergy reviewed and noted as below Family Hx: no hx of CKD. Non contributory Objective - Vital Signs/Intake and Output Vital Signs (last 24 hours): Temp Pulse Resp BP Pulse Ox 97.9 F 103 H 14 145/63 100 11/17/17 16:00 11/17/17 16:00 11/17/17 16:00 11/17/17 16:00 11/17/17 16:00 Intake and Output: 11/17/17 11/17/17 06:59 18:59 Intake Total 75 400 Output Total 190 70 Balance -115 330 - Medications Medications: Current Medications Acetaminophen (Tylenol 325mg Tab) 975 mg PO Q8 [facility] Last Admin: 11/17/17 17:01 Dose: Not Given Aspirin (Ecotrin) 81 mg PO DAILY [facility] Last Admin: 11/17/17 08:17 Dose: 81 mg Atorvastatin Calcium (Lipitor) 20 mg PO DAILY [facility] Last Admin: 11/17/17 08:20 Dose: 20 mg Epoetin Gonzalo (Procrit) 10,000 unit IV MWF [facility] Heparin Sodium (Porcine) (Heparin) 5,000 units SC Q8 [facility] PRN Reason: Protocol Last Admin: 11/17/17 17:00 Dose: 5,000 units Insulin Human Regular (Humulin R) 0 units SC ACCU-CHECK [facility] PRN Reason: Protocol Last Admin: 11/17/17 17:00 Dose: Not Given Ondansetron HCl (Zofran Inj) 4 mg IVP Q4 PRN PRN Reason: Nausea/Vomiting Oxycodone HCl (Oxycodone Immediate Release Tab) 5 mg PO Q6 PRN PRN Reason: Pain, moderate (4-7) Last Admin: 11/17/17 15:25 Dose: 5 mg Pantoprazole Sodium (Protonix Inj) 40 mg IVP DAILY [facility] Last Admin: 11/17/17 08:20 Dose: 40 mg - Labs Labs: 11/17/17 04:39 11/17/17 04:39 PT 10.1 Seconds (9.8-13.1) 11/16/17 14:01 INR 0.9 (0.9-1.2) 11/16/17 14:01 APTT 39.3 Seconds (25.6-37.1) H D 11/10/17 16:14
[2017-11-18] MEDS: Insulin Regular 100 units/ml SC SCH ×5 (00:25→23:15)
[2017-11-18] MEDS: oxyCODONE 5 mg Immediate Release Tab PO PRN ×2 (00:29→10:39)
[2017-11-18 04:56] LABS: HEMOGLOBIN 8.4 g/dL (12.0-16.0); MEAN CELL VOLUME 90.8 fl (81.0-99.0); MEAN CORPUSCULAR HEMOGLOBIN 29.2 pg (27.0-31.0); MEAN CORPUSCULAR HGB CONC 32.2 g/dL (33.0-37.0); RBC 2.87 Mil/uL (3.80-5.20); RED CELL DISTRIBUTION WIDTH 18.8 % (11.5-14.5); WHITE BLOOD COUNT 12.9 K/uL (4.8-10.8)
[2017-11-18 05:18] LABS: CALCIUM 10.1 mg/dL (8.4-10.2)
--- NOTE | 2017-11-18 08:58 | CP.PCM.PN ---
Subjective - Date & Time of Evaluation Date of Evaluation: 11/18/17 Time of Evaluation: 08:00 - Subjective Subjective: Patient was seen and examined at bedside. Coherent and able to communicate well , although intermittently confused at times. Surgical wound appears to be healing well. KITA drain drained only 120 ml overnight. Good bowel sounds. Improving slowly. Stable for transfer to telemetry. Objective - Vital Signs/Intake and Output Vital Signs (last 24 hours): Temp Pulse Resp BP Pulse Ox 98 F 115 H 20 134/74 99 11/18/17 04:00 11/18/17 08:00 11/18/17 08:00 11/18/17 08:00 11/18/17 08:00 Intake and Output: 11/18/17 11/18/17 06:59 18:59 Intake Total 150 50 Output Total 70 Balance 80 50 - Medications Medications: Current Medications Acetaminophen (Tylenol 325mg Tab) 975 mg PO Q8 [facility] Last Admin: 11/18/17 01:00 Dose: Not Given Aspirin (Ecotrin) 81 mg PO DAILY [facility] Last Admin: 11/18/17 08:06 Dose: 81 mg Atorvastatin Calcium (Lipitor) 20 mg PO DAILY [facility] Last Admin: 11/18/17 08:07 Dose: 20 mg Epoetin Gonzalo (Procrit) 10,000 unit IV MWF [facility] Heparin Sodium (Porcine) (Heparin) 5,000 units SC Q8 [facility] PRN Reason: Protocol Last Admin: 11/18/17 08:06 Dose: 5,000 units Insulin Human Regular (Humulin R) 0 units SC ACCU-CHECK [facility] PRN Reason: Protocol Last Admin: 11/18/17 06:19 Dose: Not Given Ondansetron HCl (Zofran Inj) 4 mg IVP Q4 PRN PRN Reason: Nausea/Vomiting Oxycodone HCl (Oxycodone Immediate Release Tab) 5 mg PO Q6 PRN PRN Reason: Pain, moderate (4-7) Last Admin: 11/18/17 00:29 Dose: 5 mg Pantoprazole Sodium (Protonix Inj) 40 mg IVP DAILY [facility] Last Admin: 11/18/17 08:07 Dose: 40 mg - Labs Labs: 11/18/17 04:19 11/18/17 04:19 PT 10.1 Seconds (9.8-13.1) 11/16/17 14:01 INR 0.9 (0.9-1.2) 11/16/17 14:01 APTT 39.3 Seconds (25.6-37.1) H D 11/10/17 16:14 - Additional Findings Additional findings: Physical exam: Constitutional- cooperative, awake, alert, intermittently confused Head- NCAT, PERRL Eye- PERRL, EOMI ENT- normal exam, MMM. Neck- normal inspection, supple, no JVD Respiratory- CTAB, no wheezes rales rhonchi Cardiovascular- RRR, +S1, +S2 no MRG GI/Abdominal- normal bowel sounds, soft, no mass, no hsm. + stoma appears normal , with brownish output. KITA drain to right mid abdomen with sero sanguinous output. Midline surgical incision with henry and packing healing well. Skin- warm, dry Extremities Exam- normal capillary refill, normal inspection. +2 pitting edema x 4 extremities. Neurological Exam- alert, awake, oriented, confused Psych- normal mood, normal affect Assessment and Plan - Assessment and Plan (Free Text) Plan: Assessment: 67 yo female with multiple medical problems like ESRD on dialysis, Type 2 DM, HTN, obesity, history of old CVA in 2011, atrial fibrillation,with history of recent CVA on right MCA distribution was initially admitted to [facility] where she developed GI bleed with hemorrhagic shock and severe ischemic colitis diagnosed with colonoscopy . She also had a cardiac arrest and respiratory failure requiring intubation . After improving she was transferred to acute rehab for physical therapy where she continued to have some episodes of GI bleed. On 11/04 she started to have worsening of rectal bleed , with blood clots per rectum hypotension , fever Tmax 102 and some lower abdominal tenderness. Full septic panel was ordered , Cipro and Flagyl given , IVF bolus started . Patient was then admitted to ICU with diagnosis of hypovolemic shock and GI bleed and rule out sepsis . Her colonoscopy performed at [facility] had shown : diffuse severe inflammation with ulcerations in the entire colon, severe ischemic colitis mucosal ulcerations up to 40cm dinorah. GI ,surgery and ID consulted Underwent Left Colon resection with ileostomy on 11/09 . Transfused total 6 unit PRBC . At present in ICU , hemodynamically stable, on TPN . With minimal output from ileostomy and normal BS. PO intake is limited 1. Hypovolemic shock secondary to GI bleed-- resolved off Levophed drip since 11/05 s/p 6 unit PRBC transfusion on TPN since 11/11 as per surgery cont clear liquid diet and advance as tolerated Promote ambulation with PT 2.Recurrent lower GI bleed due to Ischemic colitis s/p left colon resection with ileostomy 11/09 Complains of pain Oxycodone pRN for pain s/p 6 unit PRBC transfusion . Received DDAVP and FFP Minimal output from stoma overnight. Continue liquid diet and advance as tolerated Promote ambulation and out of bed to chair Continue TPN and monitor electrolytes. removed TLC from right groin and placed RUE PICC line 11/16 Wound care as per surgery Received total 10 days of empiric antibiotics with Cipro and flagyl 5 days and Zosyn 5 days 3. Acute on chronic anemia-stable GI blood loss on top of chronic kidney disease anemia s/p 6 unit PRBC transfusion continue Epogen 4. History of recent cardiac arrest/respiratory arrest 5. ESRD on Dialysis MWF Nephro consulted continue HD as scheduled Had HD 11/16 with 2000 ml fluid removal 6. History of R CVA 10/24/17 on ASA and Statin 7. Paroxysmal Afib patient is in and out SR and afib on monitor, rate controlled continue to monitor closely no therapeutic anticoag for now on ASA 8. DM Type II accuchecks and insulin coverage off PO meds on TPN monitor electrolytes , accuchecks 9. DVT prophylaxis SCDs started Heparin for DVT prophylaxis as per surgery
[2017-11-18] MEDS: Multivitamin Vitamin B Complex (Nephro-Vite) Tab PO SCH (10:23)
--- NOTE | 2017-11-18 15:15 | CP.PCM.PN ---
Subjective - Date & Time of Evaluation Date of Evaluation: 11/18/17 Time of Evaluation: 15:14 - Subjective Subjective: Follow up Nephrology Consultation Note Assessment: stable GI bleed, ischemic colitis s/p hemicolectomy Diabetic chronic Kidney Disease (E11.22) Hypertensive Chronic Kidney Disease (I12.0) End stage renal disease (N18.6) dependence on hemodialysis (Z99.2) (MWF) via permacath Anemia (D64.9), Hyperphosphatemia (E83.39), Secondary Hyperparathyroidism (E21.1 ), HTN (I12.0) hx of CVA Plan: Will plan for HD sunday as ordered. Continue with Nephrovite 1 tab/day. PRBC as needed for anemia. On DEYA as epogen with HD, last Hb 8.5 hold phos binders, last phos level 1.7, repeat with next labs BP control with meds as ordered. Patient not on RAAS sony as BP low Glycemic control, Dialysis consistent diet Further work up/management as per primary team Dose meds/antibiotics (if needed) for ESRD status. Avoid fleets enema/magnesium based laxatives. Thanks for allowing me to participate in care of your patient. Will follow patient with you. Please call if any Qs. Dr Marvin Sapp Office: [phone] Subjective: Noted events overnight. Patients feels okay. Denies chest pain, palpitation, shortness of breath, leg swelling. All other negative Physical Examination: General Appearance: Comfortable, in no acute respiratory distress, co-operative . Vitals reviewed and noted as below Head; Atraumatic, normocephalic ENT: no ulcers no thrush. Tongue is midline. Oropharynx: no rash or ulcers. EYES: Pupils are equal, round and reactive to light accommodation. Eye muscles and extraocular movement intact. Sclera is anicteric. Neck; supple no lymphadenopathy, no thyromegaly or bruit Lungs: Normal respiratory rate/effort. Breath sounds bilateral equal and clear Heart: Normal rate. s1s2 normal. No rub or gallop. Extremities: 1+ edema. No varicose veins Neurological: Patient is awake alert but not much communciative Skin: Warm and dry. Normal turgor. No rash. Palpitation: Normal elasticity for age Abdomen: Abdomen is soft. Bowel sounds +. There is no abdominal tenderness, no guarding/rigidity or organomegaly. has left colostomy Psych: limited insight MSK: no joint tenderness or swelling. Digits and nails normal, no deformity : kidney or bladder not palpable Access: permacath Labs/imaging reviewed. Past medical history, past surgical history, family history, social history, allergy reviewed and noted as below Family Hx: no hx of CKD. Non contributory Objective - Vital Signs/Intake and Output Vital Signs (last 24 hours): Temp Pulse Resp BP Pulse Ox 98 F 121 H 20 128/77 100 11/18/17 04:00 11/18/17 10:23 11/18/17 10:00 11/18/17 10:00 11/18/17 10:00 Intake and Output: 11/18/17 11/18/17 06:59 18:59 Intake Total 150 50 Output Total 70 Balance 80 50 - Medications Medications: Current Medications Acetaminophen (Tylenol 325mg Tab) 975 mg PO Q8 [facility] Last Admin: 11/18/17 09:49 Dose: Not Given Aspirin (Ecotrin) 81 mg PO DAILY [facility] Last Admin: 11/18/17 08:06 Dose: 81 mg Atorvastatin Calcium (Lipitor) 20 mg PO DAILY [facility] Last Admin: 11/18/17 08:07 Dose: 20 mg Epoetin Gonzalo (Procrit) 10,000 unit IV MWF [facility] Heparin Sodium (Porcine) (Heparin) 5,000 units SC Q8 [facility] PRN Reason: Protocol Last Admin: 11/18/17 08:06 Dose: 5,000 units Insulin Human Regular (Humulin R) 0 units SC ACCU-CHECK [facility] PRN Reason: Protocol Last Admin: 11/18/17 11:25 Dose: Not Given Metoprolol Tartrate (Lopressor) 12.5 mg PO Q12 [facility] Last Admin: 11/18/17 10:23 Dose: 12.5 mg Ondansetron HCl (Zofran Inj) 4 mg IVP Q4 PRN PRN Reason: Nausea/Vomiting Oxycodone HCl (Oxycodone Immediate Release Tab) 5 mg PO Q6 PRN PRN Reason: Pain, moderate (4-7) Last Admin: 11/18/17 10:39 Dose: 5 mg Pantoprazole Sodium (Protonix Inj) 40 mg IVP DAILY [facility] Last Admin: 11/18/17 08:07 Dose: 40 mg Vitamin B Complex/Vit C/Folic Acid (Nephro-Jyoti) 1 tab PO DAILY [facility] Last Admin: 11/18/17 10:23 Dose: 1 tab - Labs Labs: 11/18/17 04:19 11/18/17 04:19 PT 10.1 Seconds (9.8-13.1) 11/16/17 14:01 INR 0.9 (0.9-1.2) 11/16/17 14:01 APTT 39.3 Seconds (25.6-37.1) H D 11/10/17 16:14
[2017-11-19] MEDS ORDERED: Albuterol-Ipratrop 3 mg / 0.5 (3 ml) UD INH STA (02:34)
[2017-11-19 06:42] LABS: MEAN CELL VOLUME 90.2 fl (81.0-99.0); MEAN CORPUSCULAR HEMOGLOBIN 29.2 pg (27.0-31.0); MEAN CORPUSCULAR HGB CONC 32.4 g/dL (33.0-37.0); RBC 2.76 Mil/uL (3.80-5.20); WHITE BLOOD COUNT 14.1 K/uL (4.8-10.8)
[2017-11-19 07:04] LABS: ALB/GLOB RATIO 0.7 (1.0-2.1); ALBUMIN 2.3 g/dL (3.5-5.0)
[2017-11-19] MEDS: Insulin Regular 100 units/ml SC SCH ×3 (08:16→22:49)
[2017-11-19] MEDS ORDERED: EPOETIN ALFA 10,000 UNIT/ML ML IV SCH (09:22)
[2017-11-19] MEDS: Multivitamin Vitamin B Complex (Nephro-Vite) Tab PO SCH (09:42)
--- NOTE | 2017-11-19 09:54 | CP.PCM.CON ---
History of Present Illness - History of Present Illness History of Present Illness: 67yo F. PMHx ESRD on HD. recent bleeding from fistula c/b hemorrhagic shock, ischemic stroke, ischemic colitis eventually requiring left hemicolectomy with colostomy. multiple medical problems with history of new CVA with right MCA distribution that was initially admitted to [facility] acute rehab for PT/OT. Her past medical history includes ESRD on dialysis, Type 2 DM, HTN, obesity, history of old CVA in 2011, atrial fibrillation, GI bleed with hemorrhagic shock just last week at [facility]. During that time the patient had an episode of cardiac arrest and respiratory failure and required intubation and hemodynamic monitoring in the ICU due to hypotensive shock from extravasation. She developed ischemic colitis that was diagnosed with colonoscopy . EKG: NSR The patient at this time appears stable offers no complaints Past Patient History - Infectious Disease Hx of Infectious Diseases: None - Tetanus Immunizations Tetanus Immunization: Up to Date - Past Medical History & Family History Past Medical History?: Yes - Past Social History Smoking Status: Never Smoked - CARDIAC Hx Cardia Arrhythmia: No Hx Congestive Heart Failure: No Hx Hypercholesterolemia: Yes Hx Hypertension: Yes Hx Mitral Valve Prolapse: No Hx Pacemaker: No Hx Peripheral Edema: No - PULMONARY Hx Asthma: Yes Hx Bronchitis: No Hx Chronic Obstructive Pulmonary Disease (COPD): No Hx Emphysema: No Hx Pneumonia: No Hx Sleep Apnea: No - NEUROLOGICAL Hx Alzheimer's Disease: No Hx Dementia: No Hx Migraine: No Hx Parkinson's Disease: No Hx Seizures: No Hx Transient Ischemic Attacks (TIA): Yes - HEENT Hx HEENT Problems: No - RENAL Hx Chronic Kidney Disease: Yes Hx Kidney Stones: No - ENDOCRINE/METABOLIC Hx Hyperthyroidism: No Hx Hypothyroidism: Yes - HEMATOLOGICAL/ONCOLOGICAL Hx Anemia: Yes (secondary to rectal bleeding-resolved.) Hx Sickle Cell Disease: No - INTEGUMENTARY Hx Dermatological Problems: No - MUSCULOSKELETAL/RHEUMATOLOGICAL Hx Arthritis: No Hx Falls: No Hx Fractures: No Hx Osteoporosis: No - GASTROINTESTINAL Hx Crohn's Disease: No Hx Diverticulitis: Yes Hx Gall Bladder Disease: No Hx Pancreatitis: No - GENITOURINARY/GYNECOLOGICAL Hx Sexually Transmitted Disorders: No - PSYCHIATRIC Hx Anxiety: No Hx Bipolar Disorder: No Hx Depression: No Hx Paranoia: No Hx Post Traumatic Stress Disorder: No Hx Schizophrenia: No Hx Substance Use: No - SURGICAL HISTORY Hx Appendectomy: No Hx Cholecystectomy: No Hx Coronary Stent: No - ANESTHESIA Hx Anesthesia Reactions: No Hx Malignant Hyperthermia: No Meds Allergies/Adverse Reactions: Allergies Allergy/AdvReac Type Severity Reaction Status Date / Time Latex, Natural Rubber Allergy Unknown RASH Verified 10/26/17 14:13 - Medications Medications: Current Medications Acetaminophen (Tylenol 325mg Tab) 975 mg PO Q8 [facility] Last Admin: 11/19/17 00:06 Dose: Not Given Aspirin (Ecotrin) 81 mg PO DAILY [facility] Last Admin: 11/18/17 08:06 Dose: 81 mg Atorvastatin Calcium (Lipitor) 20 mg PO DAILY [facility] Last Admin: 11/18/17 08:07 Dose: 20 mg Epoetin Gonzalo (Procrit) 10,000 unit IV MWF [facility] Heparin Sodium (Porcine) (Heparin) 5,000 units SC Q8 [facility] PRN Reason: Protocol Last Admin: 11/19/17 00:08 Dose: 5,000 units Insulin Human Regular (Humulin R) 0 units SC ACCU-CHECK [facility] PRN Reason: Protocol Last Admin: 11/19/17 08:16 Dose: Not Given Metoprolol Tartrate (Lopressor) 25 mg PO Q12 [facility] Last Admin: 11/18/17 20:38 Dose: 25 mg Ondansetron HCl (Zofran Inj) 4 mg IVP Q4 PRN PRN Reason: Nausea/Vomiting Oxycodone HCl (Oxycodone Immediate Release Tab) 5 mg PO Q6 PRN PRN Reason: Pain, moderate (4-7) Last Admin: 11/18/17 10:39 Dose: 5 mg Pantoprazole Sodium (Protonix Inj) 40 mg IVP DAILY [facility] Last Admin: 11/18/17 08:07 Dose: 40 mg Vitamin B Complex/Vit C/Folic Acid (Nephro-Jyoti) 1 tab PO DAILY [facility] Last Admin: 11/18/17 10:23 Dose: 1 tab Physical Exam - Constitutional Appears: Well - Respiratory Exam Respiratory Exam: NORMAL BREATHING PATTERN - Cardiovascular Exam Cardiovascular Exam: REGULAR RHYTHM Results - Vital Signs Recent Vital Signs: Last Vital Signs Temp 98.3 F 11/19/17 08:10 Pulse 89 11/19/17 08:10 Resp 20 11/19/17 08:10 BP 129/67 11/19/17 08:10 Pulse Ox 95 11/19/17 08:10 - Labs Result Diagrams: 11/19/17 06:20 11/19/17 06:20 Labs: Laboratory Results - last 24 hr 11/18/17 11/18/17 11/18/17 10:38 15:45 21:44 WBC RBC Hgb Hct MCV MCH MCHC RDW Plt Count Sodium Potassium Chloride Carbon Dioxide Anion Gap BUN Creatinine Est GFR ( Amer) Est GFR (Non-Af Amer) POC Glucose (mg/dL) 98 93 105 Random Glucose Calcium Phosphorus Magnesium Total Bilirubin AST ALT Alkaline Phosphatase Total Protein Albumin Globulin Albumin/Globulin Ratio 11/19/17 11/19/17 11/19/17 06:20 06:20 07:23 WBC 14.1 H RBC 2.76 L Hgb 8.0 L Hct 24.9 L MCV 90.2 MCH 29.2 MCHC 32.4 L RDW 19.0 H Plt Count 227 Sodium 136 Potassium 5.0 Chloride 99 Carbon Dioxide 26 Anion Gap 16 BUN 34 H Creatinine 4.9 H Est GFR ( Amer) 11 Est GFR (Non-Af Amer) 9 POC Glucose (mg/dL) 81 Random Glucose 83 Calcium 10.0 Phosphorus 4.4 Magnesium 1.9 Total Bilirubin 0.6 AST 26 ALT 28 Alkaline Phosphatase 376 H D Total Protein 5.5 L Albumin 2.3 L Globulin 3.2 Albumin/Globulin Ratio 0.7 L Assessment & Plan (1) ESRD (end stage renal disease) on dialysis Status: Acute (2) Gastrointestinal hemorrhage Status: Acute (3) History of cardiac arrest Status: Acute (4) Ischemic colitis Status: Acute (5) Chronic kidney disease on chronic dialysis Status: Acute
--- NOTE | 2017-11-19 10:59 | CP.PCM.PN ---
Subjective - Date & Time of Evaluation Date of Evaluation: 11/19/17 Time of Evaluation: 08:45 - Subjective Subjective: Follow up Nephrology Consultation Note Assessment: stable GI bleed, ischemic colitis s/p hemicolectomy Diabetic chronic Kidney Disease (E11.22) Hypertensive Chronic Kidney Disease (I12.0) End stage renal disease (N18.6) dependence on hemodialysis (Z99.2) (MWF) Anemia (D64.9), Hyperphosphatemia (E83.39), Secondary Hyperparathyroidism (E21.1 ), HTN (I12.0) hx of CVA Plan: Will plan for HD today, MWF Continue with Nephrovite 1 tab/day. PRBC as needed for anemia. On DEYA as epogen with HD continue to hold phos binders bp relatively stable Glycemic control, Dialysis consistent diet Further work up/management as per primary team Dose meds/antibiotics (if needed) for ESRD status. Avoid fleets enema/magnesium based laxatives. Subjective: feels ok no complaints All other negative Physical Examination: General Appearance: Comfortable, in no acute respiratory distress, co-operative . Vitals reviewed and noted as below Head; Atraumatic, normocephalic ENT: no ulcers no thrush. Tongue is midline. Oropharynx: no rash or ulcers. EYES: Pupils are equal, round and reactive to light accommodation. Eye muscles and extraocular movement intact. Sclera is anicteric. Neck; supple no lymphadenopathy, no thyromegaly or bruit Lungs: Normal respiratory rate/effort. Breath sounds bilateral equal and clear Heart: Normal rate. s1s2 normal. No rub or gallop. Extremities: 1+ edema. No varicose veins Neurological: Patient is awake alert but not much communicative Skin: Warm and dry. Normal turgor. No rash. Palpitation: Normal elasticity for age Abdomen: Abdomen is soft. Bowel sounds +. has left colostomy, no appreciable organomegaly Psych: flat MSK: no joint tenderness or swelling. Digits and nails normal, no deformity : kidney or bladder not palpable Labs/imaging reviewed. Past medical history, past surgical history, family history, social history, allergy reviewed and noted as below Family Hx: no hx of CKD. Non contributory Objective - Vital Signs/Intake and Output Vital Signs (last 24 hours): Temp Pulse Resp BP Pulse Ox 98.3 F 89 20 129/67 95 11/19/17 08:10 11/19/17 09:41 11/19/17 08:10 11/19/17 09:41 11/19/17 08:10 Intake and Output: 11/19/17 11/19/17 06:59 18:59 Output Total 10 Balance -10 - Medications Medications: Current Medications Acetaminophen (Tylenol 325mg Tab) 975 mg PO Q8 [facility] Last Admin: 11/19/17 10:00 Dose: 975 mg Aspirin (Ecotrin) 81 mg PO DAILY [facility] Last Admin: 11/19/17 09:40 Dose: 81 mg Atorvastatin Calcium (Lipitor) 20 mg PO DAILY [facility] Last Admin: 11/19/17 09:41 Dose: 20 mg Epoetin Gonzalo (Procrit) 10,000 unit IV F [facility] Heparin Sodium (Porcine) (Heparin) 5,000 units SC Q8 [facility] PRN Reason: Protocol Last Admin: 11/19/17 09:41 Dose: 5,000 units Insulin Human Regular (Humulin R) 0 units SC ACCU-CHECK [facility] PRN Reason: Protocol Last Admin: 11/19/17 08:16 Dose: Not Given Metoprolol Tartrate (Lopressor) 25 mg PO Q12 [facility] Last Admin: 11/19/17 09:41 Dose: Not Given Ondansetron HCl (Zofran Inj) 4 mg IVP Q4 PRN PRN Reason: Nausea/Vomiting Oxycodone HCl (Oxycodone Immediate Release Tab) 5 mg PO Q6 PRN PRN Reason: Pain, moderate (4-7) Last Admin: 11/18/17 10:39 Dose: 5 mg Pantoprazole Sodium (Protonix Inj) 40 mg IVP DAILY [facility] Last Admin: 11/18/17 08:07 Dose: 40 mg Vitamin B Complex/Vit C/Folic Acid (Nephro-Jyoti) 1 tab PO DAILY [facility] Last Admin: 11/19/17 09:42 Dose: 1 tab - Labs Labs: 11/19/17 06:20 11/19/17 06:20 PT 10.1 Seconds (9.8-13.1) 11/16/17 14:01 INR 0.9 (0.9-1.2) 11/16/17 14:01 APTT 39.3 Seconds (25.6-37.1) H D 11/10/17 16:14
--- NOTE | 2017-11-19 12:31 | VASCULAR ---
PROCEDURE: PERIPHERALLY INSERTED CENTRAL VENOUS CATHETER INSERTION CLINICAL HISTORY: 67-year-old female with end-stage renal disease requiring requiring hemodialysis and history ischemia colitis requiring TPN is referred to Interventional Radiology for PICC insertion. The patient was reportedly cleared for PICC insertion by the elevator examiner and adjuster, Dr. Goetz. COMPARISON: None. PROCEDURE: 1. Focused ultrasound of the right upper extremity vasculature. 2. Ultrasound-guided access. 3. Insertion of peripherally inserted central venous catheter. 4. Fluoroscopic localization of catheter tip. PRE-PROCEDURE FINDINGS: 1. Patent right brachial vein. POST-PROCEDURE FINDINGS: 1. Placement of 5 Guinean double-lumen PICC. 2. Catheter length: 37 cm. 3. Catheter tip at cavoatrial junction. INTERVENTIONAL RADIOLOGIST: Venkat Odell M.D. (the attending was present for the entire procedure) ANESTHESIA: None. MEDICATION: Lidocaine 1% for local subcutaneous analgesia. COMPLICATIONS: None. RADIATION DOSE: Fluoroscopy Time: 42.4 seconds Cumulative Dose: 6.24 mGy PROCEDURE DESCRIPTION AND FINDINGS: The risks, benefits, alternatives and possible complications of the procedure were fully discussed; all questions were answered and informed consent was obtained. The patient was brought into the interventional suite and a pre-procedure 'time-out' was performed. The patient was placed on the fluoroscopy table in the supine position. The right upper extremity was prepped and draped in the usual sterile fashion. Maximum sterile barrier precautions were maintained throughout the entire procedure. Preliminary ultrasound images of the right upper extremity vasculature demonstrate patency of the right brachial vein. Following subcutaneous infiltration of 1% lidocaine for local analgesia, under ultrasound guidance, a 21-gauge needle was advanced into the right brachial vein with real-time visualization of needle entry. The ultrasound images were permanently recorded and submitted to the PACS. A 0.018 guidewire was advanced centrally to the cavoatrial junction. A 5 Guinean peel-away sheath was advanced over the guidewire. After obtaining length measurement, a 5 Guinean double-lumen PICC was placed with the tip of the catheter at the cavoatrial junction. The total length of the catheter is 37 cm. The hub of the PICC was secured to the skin using a sterile adhesive bandage. The patient tolerated the procedure well without immediate post-procedure complications and was transferred back to the ICU in stable condition. IMPRESSION: SUCCESSFUL INSERTION OF RIGHT UPPER EXTREMITY PICC. PICC OK TO USE.
--- NOTE | 2017-11-19 13:56 | CP.PCM.PN ---
Subjective - Date & Time of Evaluation Date of Evaluation: 11/19/17 Time of Evaluation: 10:00 - Subjective Subjective: Patient was seen and examined at bedside. The patient has no new complaints. Resting comfortably. HD stable. For dialysis today. Dr. Goetz on consultation for today. Objective - Vital Signs/Intake and Output Vital Signs (last 24 hours): Temp Pulse Resp BP Pulse Ox 98.3 F 89 20 129/67 95 11/19/17 08:10 11/19/17 09:41 11/19/17 08:10 11/19/17 09:41 11/19/17 08:10 Intake and Output: 11/19/17 11/19/17 06:59 18:59 Output Total 10 Balance -10 - Medications Medications: Current Medications Acetaminophen (Tylenol 325mg Tab) 975 mg PO Q8 [facility] Last Admin: 11/19/17 10:00 Dose: 975 mg Aspirin (Ecotrin) 81 mg PO DAILY [facility] Last Admin: 11/19/17 09:40 Dose: 81 mg Atorvastatin Calcium (Lipitor) 20 mg PO DAILY [facility] Last Admin: 11/19/17 09:41 Dose: 20 mg Epoetin Gonzalo (Procrit) 15,000 unit IV MWF [facility] Heparin Sodium (Porcine) (Heparin) 5,000 units SC Q8 [facility] PRN Reason: Protocol Last Admin: 11/19/17 09:41 Dose: 5,000 units Insulin Human Regular (Humulin R) 0 units SC ACCU-CHECK [facility] PRN Reason: Protocol Last Admin: 11/19/17 08:16 Dose: Not Given Metoprolol Tartrate (Lopressor) 25 mg PO Q12 [facility] Last Admin: 11/19/17 09:41 Dose: Not Given Ondansetron HCl (Zofran Inj) 4 mg IVP Q4 PRN PRN Reason: Nausea/Vomiting Oxycodone HCl (Oxycodone Immediate Release Tab) 5 mg PO Q6 PRN PRN Reason: Pain, moderate (4-7) Last Admin: 11/18/17 10:39 Dose: 5 mg Pantoprazole Sodium (Protonix Inj) 40 mg IVP DAILY [facility] Last Admin: 11/18/17 08:07 Dose: 40 mg Vitamin B Complex/Vit C/Folic Acid (Nephro-Jyoti) 1 tab PO DAILY [facility] Last Admin: 11/19/17 09:42 Dose: 1 tab - Labs Labs: 11/19/17 06:20 11/19/17 06:20 PT 10.1 Seconds (9.8-13.1) 11/16/17 14:01 INR 0.9 (0.9-1.2) 11/16/17 14:01 APTT 39.3 Seconds (25.6-37.1) H D 11/10/17 16:14 - Additional Findings Additional findings: Physical exam: Constitutional- cooperative, awake, alert, intermittently confused Head- NCAT, PERRL Eye- PERRL, EOMI ENT- normal exam, MMM. Neck- normal inspection, supple, no JVD Respiratory- CTAB, no wheezes rales rhonchi Cardiovascular- RRR, +S1, +S2 no MRG GI/Abdominal- normal bowel sounds, soft, no mass, no hsm. + stoma appears normal , with brownish output. KITA drain to right mid abdomen with sero sanguinous output. Midline surgical incision with henry and packing healing well. Skin- warm, dry Extremities Exam- normal capillary refill, normal inspection. +2 pitting edema x 4 extremities. Neurological Exam- alert, awake, oriented, confused Psych- normal mood, normal affect Assessment and Plan - Assessment and Plan (Free Text) Plan: Assessment: 67 yo female with multiple medical problems like ESRD on dialysis, Type 2 DM, HTN, obesity, history of old CVA in 2011, atrial fibrillation,with history of recent CVA on right MCA distribution was initially admitted to [facility] where she developed GI bleed with hemorrhagic shock and severe ischemic colitis diagnosed with colonoscopy . She also had a cardiac arrest and respiratory failure requiring intubation . After improving she was transferred to acute rehab for physical therapy where she continued to have some episodes of GI bleed. On 11/04 she started to have worsening of rectal bleed , with blood clots per rectum hypotension , fever Tmax 102 and some lower abdominal tenderness. Full septic panel was ordered , Cipro and Flagyl given , IVF bolus started . Patient was then admitted to ICU with diagnosis of hypovolemic shock and GI bleed and rule out sepsis . Her colonoscopy performed at [facility] had shown : diffuse severe inflammation with ulcerations in the entire colon, severe ischemic colitis mucosal ulcerations up to 40cm dinorah. GI ,surgery and ID consulted Underwent Left Colon resection with ileostomy on 11/09 . Transfused total 6 unit PRBC . At present in ICU , hemodynamically stable, on TPN . With minimal output from ileostomy and normal BS. PO intake is limited 1. Hypovolemic shock secondary to GI bleed-- resolved off Levophed drip since 11/05 s/p 6 unit PRBC transfusion on TPN since 11/11 as per surgery cont clear liquid diet and advance as tolerated Promote ambulation with PT 2.Recurrent lower GI bleed due to Ischemic colitis Hg 8.5-->8.5-->8.0 today, may be oozing blood from colitis. No kristin bleeding noted rectally at this time. Hold heparin for 24 hours. s/p left colon resection with ileostomy 11/09 Oxycodone pRN for pain s/p 6 unit PRBC transfusion . Received DDAVP and FFP Minimal output from stoma overnight. Continue liquid diet and advance as tolerated Promote ambulation and out of bed to chair Continue TPN and monitor electrolytes. removed TLC from right groin and placed RUE PICC line 11/16 Wound care as per surgery Received total 10 days of empiric antibiotics with Cipro and flagyl 5 days and Zosyn 5 days 3. Acute on chronic anemia-stable GI blood loss on top of chronic kidney disease anemia s/p 6 unit PRBC transfusion continue Epogen 4. History of recent cardiac arrest/respiratory arrest 5. ESRD on Dialysis MWF Nephro consulted continue HD as scheduled Had HD 11/16 with 2000 ml fluid removal 6. History of R CVA 10/24/17 on ASA and Statin 7. Paroxysmal Afib patient is in and out SR and afib on monitor, rate controlled continue to monitor closely no therapeutic anticoag for now on ASA 8. DM Type II accuchecks and insulin coverage off PO meds on TPN monitor electrolytes , accuchecks 9. DVT prophylaxis SCDs Hold heparin for 24 hours due to slow drop in hemoglobin and will reassess.
[2017-11-19] MEDS: Epoetin Alfa 20000 UNIT/ML (RENAL DOSE) IV SCH (17:12)
[2017-11-20] MEDS: Insulin Regular 100 units/ml SC SCH ×4 (05:59→23:00)
[2017-11-20 06:45] LABS: HEMOGLOBIN 7.9 g/dL (12.0-16.0); MEAN CELL VOLUME 90.2 fl (81.0-99.0); MEAN CORPUSCULAR HEMOGLOBIN 29.5 pg (27.0-31.0); MEAN CORPUSCULAR HGB CONC 32.7 g/dL (33.0-37.0); RBC 2.67 Mil/uL (3.80-5.20); WHITE BLOOD COUNT 10.5 K/uL (4.8-10.8)
[2017-11-20] MEDS ORDERED: Povidone Iodine Topical 10% Sol ONE (07:04)
[2017-11-20] MEDS: Multivitamin Vitamin B Complex (Nephro-Vite) Tab PO SCH (08:33)
--- NOTE | 2017-11-20 13:34 | CP.PCM.PN ---
Subjective - Date & Time of Evaluation Date of Evaluation: 11/20/17 Time of Evaluation: 12:20 - Subjective Subjective: ID Note- Patient seen and examined today in med-surg floor. patient awake , alert and in good spirits. denies any fever or chills, states only minimal pain at surgical site. Objective - Vital Signs/Intake and Output Vital Signs (last 24 hours): Temp Pulse Resp BP Pulse Ox 98.8 F 86 20 141/77 96 11/20/17 08:38 11/20/17 08:38 11/20/17 08:38 11/20/17 08:38 11/20/17 08:38 Intake and Output: 11/20/17 11/20/17 06:59 18:59 Output Total 18 - Medications Medications: Current Medications Acetaminophen (Tylenol 325mg Tab) 975 mg PO Q8 [facility] Last Admin: 11/20/17 08:40 Dose: 975 mg Aspirin (Ecotrin) 81 mg PO DAILY [facility] Last Admin: 11/20/17 08:34 Dose: 81 mg Atorvastatin Calcium (Lipitor) 20 mg PO DAILY [facility] Last Admin: 11/20/17 08:33 Dose: 20 mg Epoetin Gonzalo (Procrit) 15,000 unit IV MWF [facility] Last Admin: 11/19/17 17:12 Dose: 15,000 unit Heparin Sodium (Porcine) (Heparin) 5,000 units SC Q8 [facility] PRN Reason: Protocol Last Admin: 11/19/17 09:41 Dose: 5,000 units Insulin Human Regular (Humulin R) 0 units SC ACCU-CHECK [facility] PRN Reason: Protocol Last Admin: 11/20/17 12:59 Dose: Not Given Metoprolol Tartrate (Lopressor) 25 mg PO Q12 [facility] Last Admin: 11/20/17 08:33 Dose: 25 mg Ondansetron HCl (Zofran Inj) 4 mg IVP Q4 PRN PRN Reason: Nausea/Vomiting Oxycodone HCl (Oxycodone Immediate Release Tab) 5 mg PO Q6 PRN PRN Reason: Pain, moderate (4-7) Last Admin: 11/18/17 10:39 Dose: 5 mg Pantoprazole Sodium (Protonix Inj) 40 mg IVP DAILY [facility] Last Admin: 11/20/17 08:34 Dose: 40 mg Vitamin B Complex/Vit C/Folic Acid (Nephro-Jyoti) 1 tab PO DAILY [facility] Last Admin: 11/20/17 08:33 Dose: 1 tab - Labs Labs: - Additional Findings Additional findings: - Constitutional Appears: Non-toxic, No Acute Distress, Chronically Ill - Head Exam Head Exam: ATRAUMATIC, NORMOCEPHALIC - Eye Exam Eye Exam: EOMI, Normal appearance, PERRL - ENT Exam ENT Exam: Mucous Membranes Dry, Normal Exam - Respiratory Exam Respiratory Exam: Clear to Auscultation Bilateral, NORMAL BREATHING PATTERN. - Cardiovascular Exam Cardiovascular Exam: S1S2 RRR - GI/Abdominal Exam GI & Abdominal Exam: soft Additional comments: KITA drain to right mid abdomen Midline surgical incision with dressings in place clean and intact iliostomy to left mid abdomen appears pink and clean extremity- pain in left calf region Neuro- AAO x 3 Laboratory Results - last 72 hr 11/17/17 11/17/17 11/18/17 16:16 21:52 04:19 WBC 12.9 H RBC 2.87 L Hgb 8.4 L Hct 26.1 L MCV 90.8 MCH 29.2 MCHC 32.2 L RDW 18.8 H Plt Count 207 Sodium Potassium Chloride Carbon Dioxide Anion Gap BUN Creatinine Est GFR ( Amer) Est GFR (Non-Af Amer) POC Glucose (mg/dL) 101 88 Random Glucose Calcium Phosphorus Magnesium Total Bilirubin AST ALT Alkaline Phosphatase Total Protein Albumin Globulin Albumin/Globulin Ratio 11/18/17 11/18/17 11/18/17 04:19 04:41 10:38 WBC RBC Hgb Hct MCV MCH MCHC RDW Plt Count Sodium 135 Potassium 4.8 Chloride 99 Carbon Dioxide 27 Anion Gap 14 BUN 26 H Creatinine 3.9 H Est GFR ( Amer) 14 Est GFR (Non-Af Amer) 11 POC Glucose (mg/dL) 83 98 Random Glucose 81 Calcium 10.1 Phosphorus Magnesium Total Bilirubin AST ALT Alkaline Phosphatase Total Protein Albumin Globulin Albumin/Globulin Ratio 11/18/17 11/18/17 11/19/17 15:45 21:44 06:20 WBC 14.1 H RBC 2.76 L Hgb 8.0 L Hct 24.9 L MCV 90.2 MCH 29.2 MCHC 32.4 L RDW 19.0 H Plt Count 227 Sodium Potassium Chloride Carbon Dioxide Anion Gap BUN Creatinine Est GFR ( Amer) Est GFR (Non-Af Amer) POC Glucose (mg/dL) 93 105 Random Glucose Calcium Phosphorus Magnesium Total Bilirubin AST ALT Alkaline Phosphatase Total Protein Albumin Globulin Albumin/Globulin Ratio 11/19/17 11/19/17 11/19/17 06:20 07:23 10:54 WBC RBC Hgb Hct MCV MCH MCHC RDW Plt Count Sodium 136 Potassium 5.0 Chloride 99 Carbon Dioxide 26 Anion Gap 16 BUN 34 H Creatinine 4.9 H Est GFR ( Amer) 11 Est GFR (Non-Af Amer) 9 POC Glucose (mg/dL) 81 115 H Random Glucose 83 Calcium 10.0 Phosphorus 4.4 Magnesium 1.9 Total Bilirubin 0.6 AST 26 ALT 28 Alkaline Phosphatase 376 H D Total Protein 5.5 L Albumin 2.3 L Globulin 3.2 Albumin/Globulin Ratio 0.7 L 11/19/17 11/19/17 11/20/17 15:52 21:45 05:16 WBC RBC Hgb Hct MCV MCH MCHC RDW Plt Count Sodium Potassium Chloride Carbon Dioxide Anion Gap BUN Creatinine Est GFR ( Amer) Est GFR (Non-Af Amer) POC Glucose (mg/dL) 83 98 80 Random Glucose Calcium Phosphorus Magnesium Total Bilirubin AST ALT Alkaline Phosphatase Total Protein Albumin Globulin Albumin/Globulin Ratio 11/20/17 11/20/17 05:50 05:50 WBC 10.5 RBC 2.67 L Hgb 7.9 L Hct 24.1 L MCV 90.2 MCH 29.5 MCHC 32.7 L RDW 19.0 H Plt Count 269 Sodium 135 Potassium 3.8 Chloride 98 Carbon Dioxide 29 Anion Gap 12 BUN 18 H Creatinine 3.0 H Est GFR ( Amer) 19 Est GFR (Non-Af Amer) 15 POC Glucose (mg/dL) Random Glucose 84 Calcium 9.0 Phosphorus Magnesium Total Bilirubin AST ALT Alkaline Phosphatase Total Protein Albumin Globulin Albumin/Globulin Ratio Microbiology 11/13/17 16:15 Blood-Thru Central Line Blood Culture - Final NO GROWTH AFTER 5 DAYS 11/13/17 16:15 Blood-Thru Central Line Gram Stain - Final TEST NOT PERFORMED 11/10/17 16:14 Blood-Venous Blood Culture - Final NO GROWTH AFTER 5 DAYS 11/10/17 16:14 Blood-Venous Gram Stain - Final TEST NOT PERFORMED 11/04/17 11:09 Blood Blood Culture - Final NO GROWTH AFTER 5 DAYS 11/04/17 17:59 Urine,Poe Urine Culture - Final No Growth (<1,000 CFU/ML) 11/04/17 18:00 Nose MRSA Culture (Admit) - Final MRSA NOT DETECTED Assessment and Plan (1) ESRD (end stage renal disease) on dialysis Status: Acute (2) Ischemic colitis Status: Acute (3) History of cardiac arrest Status: Acute (4) Gastrointestinal hemorrhage Status: Acute - Assessment and Plan (Free Text) Assessment: A/P- Patient is a 67 year old female with past medical history includes ESRD on dialysis, Type 2 DM, HTN, obesity, history of old CVA in 2011, atrial fibrillation, GI bleed with hemorrhagic shock just last week at [facility]. During that time the patient had an episode of cardiac arrest and respiratory failure and required intubation and hemodynamic monitoring in the ICU due to hypotensive shock from extravasation. She developed ischemic colitis that was diagnosed with colonoscopy and transferred to [facility] acute rehab for PT/ OT. She was transferred to [facility] ICU due to rectal bleed with hypovolemia and suspected sepsis.copy that showed colonic diverticulosis, internal hemorrhoids and diffuse severe inflammation with ulcerations in the entire colon, severe ischemic colitis. On 11/04 she started to have worsening of rectal bleed , with blood clots and hypotension , fever Tmax 102 and minimal lower abdominal tenderness. Full septic panel was ordered , Cipro and Flagyl given , IVF ( bolus started ). Patient was then sent to [facility] ED then to ICU for rule out sepsis and GI bleed. clinically much improved pt. s/p partial colectomy with ostomy and KITA drain in place POD #11 has remained afebrile Leukocytosis resolved. stool c.diff- neg blood cx- neg urine cx- neg ext US- neg for DVT as per report plan- had completed 5 days of empiric IV zosyn and prior to that was on empiric flagyl and ceftriaxone by primary team. blood cx from TLC are negative too. TLC has been d/c . pt. is on TPN as per surgical team. advise to have pt. on TPN short time as it is a risk factor for fungemia and bactermia. for now no evidence of any infection and pt. has been on total 10 days of empiric iv ABX. no need for any antibiotics at this time. will sign off the case. Please re-consult as needed.
--- NOTE | 2017-11-20 14:23 | CP.PCM.PN ---
Subjective - Date & Time of Evaluation Date of Evaluation: 11/20/17 Time of Evaluation: 14:21 - Subjective Subjective: Follow up Nephrology Consultation Note no events overnight Assessment: stable GI bleed, ischemic colitis s/p hemicolectomy Diabetic chronic Kidney Disease (E11.22) Hypertensive Chronic Kidney Disease (I12.0) End stage renal disease (N18.6) dependence on hemodialysis (Z99.2) (MWF) Anemia (D64.9), Hyperphosphatemia (E83.39), Secondary Hyperparathyroidism (E21.1 ), HTN (I12.0) hx of CVA Plan: continue hd MWF Continue with Nephrovite 1 tab/day. PRBC as needed for anemia. epogen with HD monitor phos levels bp relatively stable Glycemic control, Dialysis consistent diet Dose meds/antibiotics (if needed) for ESRD status. Physical Examination: General Appearance: Comfortable, in no acute respiratory distress, co-operative . Vitals reviewed and noted as below Head; Atraumatic, normocephalic ENT: no ulcers no thrush. Tongue is midline. Oropharynx: no rash or ulcers. EYES: Eye muscles and extraocular movement intact. Sclera is anicteric. Neck; supple no lymphadenopathy, no thyromegaly or bruit Lungs: Normal respiratory rate/effort. Breath sounds bilateral equal and clear Heart: Normal rate. s1s2 normal. No rub or gallop. Extremities: 1+ edema. No varicose veins Neurological: Patient is awake alert but not much communicative Skin: Warm and dry. Normal turgor. No rash. Palpitation: Normal elasticity for age Abdomen: Abdomen is soft. Bowel sounds +. has left colostomy, no appreciable organomegaly Psych: flat MSK: no joint tenderness or swelling. Objective - Vital Signs/Intake and Output Vital Signs (last 24 hours): Temp Pulse Resp BP Pulse Ox 98.8 F 86 20 141/77 96 11/20/17 08:38 11/20/17 08:38 11/20/17 08:38 11/20/17 08:38 11/20/17 08:38 Intake and Output: 11/20/17 11/20/17 06:59 18:59 Output Total 18 15 - Medications Medications: Current Medications Acetaminophen (Tylenol 325mg Tab) 975 mg PO Q8 [facility] Last Admin: 11/20/17 08:40 Dose: 975 mg Aspirin (Ecotrin) 81 mg PO DAILY [facility] Last Admin: 11/20/17 08:34 Dose: 81 mg Atorvastatin Calcium (Lipitor) 20 mg PO DAILY [facility] Last Admin: 11/20/17 08:33 Dose: 20 mg Epoetin Gonzalo (Procrit) 15,000 unit IV MWF [facility] Last Admin: 11/19/17 17:12 Dose: 15,000 unit Heparin Sodium (Porcine) (Heparin) 5,000 units SC Q8 [facility] PRN Reason: Protocol Last Admin: 11/19/17 09:41 Dose: 5,000 units Insulin Human Regular (Humulin R) 0 units SC ACCU-CHECK [facility] PRN Reason: Protocol Last Admin: 11/20/17 12:59 Dose: Not Given Metoprolol Tartrate (Lopressor) 25 mg PO Q12 [facility] Last Admin: 11/20/17 08:33 Dose: 25 mg Ondansetron HCl (Zofran Inj) 4 mg IVP Q4 PRN PRN Reason: Nausea/Vomiting Oxycodone HCl (Oxycodone Immediate Release Tab) 5 mg PO Q6 PRN PRN Reason: Pain, moderate (4-7) Last Admin: 11/18/17 10:39 Dose: 5 mg Pantoprazole Sodium (Protonix Inj) 40 mg IVP DAILY [facility] Last Admin: 11/20/17 08:34 Dose: 40 mg Vitamin B Complex/Vit C/Folic Acid (Nephro-Jyoti) 1 tab PO DAILY [facility] Last Admin: 11/20/17 08:33 Dose: 1 tab - Labs Labs: 11/20/17 05:50 11/20/17 05:50 PT 10.1 Seconds (9.8-13.1) 11/16/17 14:01 INR 0.9 (0.9-1.2) 11/16/17 14:01 APTT 39.3 Seconds (25.6-37.1) H D 11/10/17 16:14
--- NOTE | 2017-11-20 14:32 | CP.PCM.PN ---
Subjective - Date & Time of Evaluation Date of Evaluation: 11/20/17 Time of Evaluation: 14:00 - Subjective Subjective: Patient was seen and examined bedside. Feeling better. Lying in bed in NAD. Hemodynamically stable, afebrile No aute issues overnight With poor PO intake Objective - Vital Signs/Intake and Output Vital Signs (last 24 hours): Temp Pulse Resp BP Pulse Ox 98.8 F 86 20 141/77 96 11/20/17 08:38 11/20/17 08:38 11/20/17 08:38 11/20/17 08:38 11/20/17 08:38 Intake and Output: 11/20/17 11/20/17 06:59 18:59 Output Total 18 - Medications Medications: Current Medications Acetaminophen (Tylenol 325mg Tab) 975 mg PO Q8 [facility] Last Admin: 11/20/17 08:40 Dose: 975 mg Aspirin (Ecotrin) 81 mg PO DAILY [facility] Last Admin: 11/20/17 08:34 Dose: 81 mg Atorvastatin Calcium (Lipitor) 20 mg PO DAILY [facility] Last Admin: 11/20/17 08:33 Dose: 20 mg Epoetin Gonzalo (Procrit) 15,000 unit IV MWF [facility] Last Admin: 11/19/17 17:12 Dose: 15,000 unit Heparin Sodium (Porcine) (Heparin) 5,000 units SC Q8 [facility] PRN Reason: Protocol Last Admin: 11/19/17 09:41 Dose: 5,000 units Insulin Human Regular (Humulin R) 0 units SC ACCU-CHECK [facility] PRN Reason: Protocol Last Admin: 11/20/17 12:59 Dose: Not Given Metoprolol Tartrate (Lopressor) 25 mg PO Q12 [facility] Last Admin: 11/20/17 08:33 Dose: 25 mg Ondansetron HCl (Zofran Inj) 4 mg IVP Q4 PRN PRN Reason: Nausea/Vomiting Oxycodone HCl (Oxycodone Immediate Release Tab) 5 mg PO Q6 PRN PRN Reason: Pain, moderate (4-7) Last Admin: 11/18/17 10:39 Dose: 5 mg Pantoprazole Sodium (Protonix Inj) 40 mg IVP DAILY [facility] Last Admin: 11/20/17 08:34 Dose: 40 mg Vitamin B Complex/Vit C/Folic Acid (Nephro-Jyoti) 1 tab PO DAILY [facility] Last Admin: 11/20/17 08:33 Dose: 1 tab - Labs Labs: 11/20/17 05:50 11/20/17 05:50 PT 10.1 Seconds (9.8-13.1) 11/16/17 14:01 INR 0.9 (0.9-1.2) 11/16/17 14:01 APTT 39.3 Seconds (25.6-37.1) H D 11/10/17 16:14 - Constitutional Appears: Non-toxic, No Acute Distress, Other (obese) - Head Exam Head Exam: ATRAUMATIC, NORMAL INSPECTION, NORMOCEPHALIC - Eye Exam Eye Exam: EOMI, Normal appearance, PERRL Pupil Exam: NORMAL ACCOMODATION - ENT Exam ENT Exam: Mucous Membranes Moist, Normal Exam - Neck Exam Neck Exam: Full ROM, Normal Inspection - Respiratory Exam Respiratory Exam: Clear to Ausculation Bilateral, NORMAL BREATHING PATTERN. absent: Rales, Rhonchi, Wheezes - Cardiovascular Exam Cardiovascular Exam: Irregular Rhythm, +S1, +S2. absent: JVD - GI/Abdominal Exam GI & Abdominal Exam: Soft. absent: Distended, Guarding, Tenderness, Rebound Additional comments: midlin esurgical incision healing well , with minimal erythema on the lower portion and small skin tear on the abdominal fold KITA drain to RLQ iliostomy bag to LLQ with brownish output , stoma healthy right hand dorsal aspect open wound - Rectal Exam Rectal Exam: Deferred - Extremities Exam Extremities Exam: Normal Capillary Refill, Normal Inspection. absent: Pedal Edema - Neurological Exam Neurological Exam: Alert, Awake, Oriented x3 Additional comments: left side weakness - Psychiatric Exam Psychiatric exam: Normal Affect - Skin Skin Exam: Dry, Warm Assessment and Plan - Assessment and Plan (Free Text) Assessment: 67 yo female with multiple medical problems like ESRD on dialysis, Type 2 DM, HTN, obesity, history of old CVA in 2011, atrial fibrillation,with history of recent CVA on right MCA distribution was initially admitted to [facility] where she developed GI bleed with hemorrhagic shock and severe ischemic colitis diagnosed with colonoscopy . She also had a cardiac arrest and respiratory failure requiring intubation . After improving she was transferred to acute rehab for physical therapy where she continued to have some episodes of GI bleed. On 11/04 she started to have worsening of rectal bleed , with blood clots per rectum hypotension , fever Tmax 102 and some lower abdominal tenderness. Full septic panel was ordered , Cipro and Flagyl given , IVF bolus started . Patient was then admitted to ICU with diagnosis of hypovolemic shock and GI bleed and rule out sepsis . Her colonoscopy performed at [facility] had shown : diffuse severe inflammation with ulcerations in the entire colon, severe ischemic colitis mucosal ulcerations up to 40cm dinorah. GI ,surgery and ID consulted Underwent Left Colon resection with ileostomy on 11/09 . Transfused total 6 unit PRBC . At present , hemodynamically stable, on med surg and doing well. BS present , iliostomy is working and surgical wound is healing . Not very good PO intake , off TPN 1. Hypovolemic shock secondary to GI bleed-- resolved off Levophed drip since 11/05 s/p 6 unit PRBC transfusion received TPN from 11/11 - 11/15 diet advanced and tolerating Promote ambulation with PT Will need rehab 2.Recurrent lower GI bleed due to Ischemic colitis Hg 8.5-->8.5-->8.0--7.9 today, may be oozing blood from colitis. No kristin bleeding noted rectally at this time. Hold heparin for 24 hours. Will transfuse 1 unit PRBC today and repeat CBC in AM s/p left colon resection with ileostomy 11/09 Oxycodone pRN for pain s/p 6 unit PRBC transfusion . Received DDAVP and FFP stoma with good output . Continue renal diet Promote ambulation and out of bed to chair off TPN removed TLC from right groin and placed RUE PICC line 11/16 Wound care as per surgery Received total 10 days of empiric antibiotics with Cipro and flagyl 5 days and Zosyn 5 days 3. Acute on chronic anemia-stable GI blood loss on top of chronic kidney disease anemia s/p 6 unit PRBC transfusion HG 7.9 continue Epogen 4. History of recent cardiac arrest/respiratory arrest 5. ESRD on Dialysis MWF Nephro consulted continue HD as scheduled Had HD 11/19 with 2000 ml fluid removal 6. History of R CVA 10/24/17 on ASA and Statin Continue PT 7. Paroxysmal Afib patient is in and out SR and afib on monitor, rate controlled on metoprolol no therapeutic anticoag due to GI bleed on ASA 8. DM Type II-- ruled out Hgb A1c 6 accuchecks and insulin coverage 9. DVT prophylaxis SCDs Hold heparin for 24 hours due to slow drop in hemoglobin and will reassess.
[2017-11-21 06:48] LABS: HEMOGLOBIN 10.1 g/dL (12.0-16.0); MEAN CELL VOLUME 88.6 fl (81.0-99.0); MEAN CORPUSCULAR HGB CONC 33.8 g/dL (33.0-37.0); RBC 3.36 Mil/uL (3.80-5.20); RED CELL DISTRIBUTION WIDTH 18.2 % (11.5-14.5); WHITE BLOOD COUNT 9.9 K/uL (4.8-10.8)
[2017-11-21] MEDS: Insulin Regular 100 units/ml SC SCH ×3 (08:25→17:03)
--- NOTE | 2017-11-21 09:39 | CP.PCM.PN ---
Subjective - Date & Time of Evaluation Date of Evaluation: 11/21/17 Time of Evaluation: 09:38 - Subjective Subjective: Follow up Nephrology Consultation Note S:no events overnight, seen on dialysis uf goal 3 kg Assessment: stable GI bleed, ischemic colitis s/p hemicolectomy Diabetic chronic Kidney Disease (E11.22) Hypertensive Chronic Kidney Disease (I12.0) End stage renal disease (N18.6) dependence on hemodialysis (Z99.2) (MWF) Anemia (D64.9), Hyperphosphatemia (E83.39), Secondary Hyperparathyroidism (E21.1 ), HTN (I12.0) hx of CVA Plan: continue hd MWF, tolerating treatment Continue with Nephrovite 1 tab/day. PRBC as needed for anemia. epogen with HD monitor phos levels bp high, will reeval p hd Glycemic control, Dialysis consistent diet Dose meds/antibiotics for ESRD status. Physical Examination: General Appearance: Comfortable, in no acute respiratory distress, co-operative . Vitals reviewed and noted as below Head; Atraumatic, normocephalic ENT: no ulcers no thrush. Tongue is midline. Oropharynx: no rash or ulcers. EYES: Eye muscles and extraocular movement intact. Sclera is anicteric. Neck; supple no lymphadenopathy, no thyromegaly or bruit Lungs: Normal respiratory rate/effort. Breath sounds bilateral equal and clear Heart: Normal rate. s1s2 normal. No rub or gallop. Extremities: 1+ edema. No varicose veins Neurological: Patient is awake alert but not much communicative Skin: Warm and dry. Normal turgor. No rash. Palpitation: Normal elasticity for age Abdomen: Abdomen is soft. Bowel sounds +. has left colostomy, no appreciable organomegaly Psych: flat MSK: no joint tenderness or swelling. Objective - Vital Signs/Intake and Output Vital Signs (last 24 hours): Temp Pulse Resp BP Pulse Ox 98.0 F 69 20 139/94 H 100 11/21/17 08:30 11/21/17 08:30 11/21/17 08:30 11/21/17 08:30 11/21/17 08:30 Intake and Output: 11/21/17 11/21/17 06:59 18:59 Output Total 60 Balance -60 - Medications Medications: Current Medications Acetaminophen (Tylenol 325mg Tab) 975 mg PO Q8 [facility] Last Admin: 11/21/17 00:45 Dose: 975 mg Aspirin (Ecotrin) 81 mg PO DAILY [facility] Last Admin: 11/20/17 08:34 Dose: 81 mg Atorvastatin Calcium (Lipitor) 20 mg PO DAILY [facility] Last Admin: 11/20/17 08:33 Dose: 20 mg Epoetin Gonzalo (Procrit) 15,000 unit IV MWF [facility] Last Admin: 11/19/17 17:12 Dose: 15,000 unit Heparin Sodium (Porcine) (Heparin) 5,000 units SC Q8 [facility] PRN Reason: Protocol Last Admin: 11/21/17 00:45 Dose: 5,000 units Insulin Human Regular (Humulin R) 0 units SC ACCU-CHECK [facility] PRN Reason: Protocol Last Admin: 11/21/17 08:25 Dose: Not Given Metoprolol Tartrate (Lopressor) 25 mg PO Q12 [facility] Last Admin: 11/21/17 08:26 Dose: Not Given Ondansetron HCl (Zofran Inj) 4 mg IVP Q4 PRN PRN Reason: Nausea/Vomiting Oxycodone HCl (Oxycodone Immediate Release Tab) 5 mg PO Q6 PRN PRN Reason: Pain, moderate (4-7) Last Admin: 11/18/17 10:39 Dose: 5 mg Pantoprazole Sodium (Protonix Inj) 40 mg IVP DAILY [facility] Last Admin: 11/20/17 08:34 Dose: 40 mg Vitamin B Complex/Vit C/Folic Acid (Nephro-Jyoti) 1 tab PO DAILY [facility] Last Admin: 11/20/17 08:33 Dose: 1 tab - Labs Labs: 11/21/17 06:20 11/20/17 05:50 PT 10.1 Seconds (9.8-13.1) 11/16/17 14:01 INR 0.9 (0.9-1.2) 11/16/17 14:01 APTT 39.3 Seconds (25.6-37.1) H D 11/10/17 16:14
[2017-11-21] MEDS: Multivitamin Vitamin B Complex (Nephro-Vite) Tab PO SCH (10:01)
[2017-11-21] MEDS: Epoetin Alfa 20000 UNIT/ML (RENAL DOSE) IV SCH (10:01)
--- NOTE | 2017-11-21 16:06 | CP.PCM.PN ---
Subjective - Date & Time of Evaluation Date of Evaluation: 11/21/17 Time of Evaluation: 11:30 - Subjective Subjective: Patient seen bedside. In very good mood.Awake and alert . Hemodynamically stable , afebrile. No acute issues overnight Tolerating PO intake and stoma is working Had HD today s/p 1 unit PRBC transfusion yesterday with Hgb 10 KITA drain to RLQ with 75 ml pawan colored output Surgical wound healing well Iliostomy to LLQ Objective - Vital Signs/Intake and Output Vital Signs (last 24 hours): Temp Pulse Resp BP Pulse Ox 98.0 F 98 H 18 114/69 100 11/21/17 08:30 11/21/17 13:17 11/21/17 13:17 11/21/17 13:17 11/21/17 13:17 Intake and Output: 11/21/17 11/21/17 06:59 18:59 Output Total 60 Balance -60 - Medications Medications: Current Medications Acetaminophen (Tylenol 325mg Tab) 975 mg PO Q8 [facility] Last Admin: 11/21/17 10:17 Dose: 975 mg Aspirin (Ecotrin) 81 mg PO DAILY [facility] Last Admin: 11/21/17 10:02 Dose: 81 mg Atorvastatin Calcium (Lipitor) 20 mg PO DAILY [facility] Last Admin: 11/21/17 10:02 Dose: 20 mg Epoetin Gonzalo (Procrit) 15,000 unit IV MWF [facility] Last Admin: 11/21/17 10:01 Dose: 15,000 unit Heparin Sodium (Porcine) (Heparin) 5,000 units SC Q8 [facility] PRN Reason: Protocol Last Admin: 11/21/17 10:02 Dose: 5,000 units Insulin Human Regular (Humulin R) 0 units SC ACCU-CHECK [facility] PRN Reason: Protocol Last Admin: 11/21/17 12:42 Dose: Not Given Metoprolol Tartrate (Lopressor) 25 mg PO Q12 [facility] Last Admin: 11/21/17 08:26 Dose: Not Given Ondansetron HCl (Zofran Inj) 4 mg IVP Q4 PRN PRN Reason: Nausea/Vomiting Oxycodone HCl (Oxycodone Immediate Release Tab) 5 mg PO Q6 PRN PRN Reason: Pain, moderate (4-7) Last Admin: 11/18/17 10:39 Dose: 5 mg Pantoprazole Sodium (Protonix Inj) 40 mg IVP DAILY [facility] Last Admin: 11/21/17 10:02 Dose: 40 mg Vitamin B Complex/Vit C/Folic Acid (Nephro-Jyoti) 1 tab PO DAILY [facility] Last Admin: 11/21/17 10:01 Dose: 1 tab - Labs Labs: 11/21/17 06:20 11/20/17 05:50 PT 10.1 Seconds (9.8-13.1) 11/16/17 14:01 INR 0.9 (0.9-1.2) 11/16/17 14:01 APTT 39.3 Seconds (25.6-37.1) H D 11/10/17 16:14 - Constitutional Appears: Non-toxic, No Acute Distress, Other (obese) - Head Exam Head Exam: ATRAUMATIC, NORMAL INSPECTION, NORMOCEPHALIC - Eye Exam Eye Exam: EOMI, PERRL Pupil Exam: NORMAL ACCOMODATION - ENT Exam ENT Exam: Mucous Membranes Moist, Normal Exam - Neck Exam Neck Exam: Normal Inspection - Respiratory Exam Respiratory Exam: Clear to Ausculation Bilateral, NORMAL BREATHING PATTERN. absent: Rales, Rhonchi, Wheezes - Cardiovascular Exam Cardiovascular Exam: REGULAR RHYTHM, RRR, +S1, +S2. absent: JVD - GI/Abdominal Exam GI & Abdominal Exam: Soft, Normal Bowel Sounds. absent: Distended, Guarding, Rigid, Tenderness, Rebound Additional comments: midline surgical incision healing well, with dressing and henry in place RLQ KITA drain in place with pawan colored output Iliostomy to LLQ , stoma is healthy and working well right lower abdominal fold small skin tear - Rectal Exam Rectal Exam: Deferred - Extremities Exam Extremities Exam: absent: Calf Tenderness, Pedal Edema - Back Exam Back Exam: NORMAL INSPECTION - Neurological Exam Neurological Exam: Alert, Awake, CN II-XII Intact Additional comments: left side weakness - Psychiatric Exam Psychiatric exam: Normal Affect - Skin Skin Exam: Dry, Warm Additional comments: midline surgical incision right hand dorsal aspect open wound 3 x 3 cm Assessment and Plan - Assessment and Plan (Free Text) Assessment: 67 yo female with multiple medical problems like ESRD on dialysis,HTN, obesity , history of old CVA in 2012, atrial fibrillation,with 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 She also had a cardiac arrest and respiratory failure requiring intubation . After improving she was transferred to acute rehab for physical therapy where she continued to have some episodes of GI bleed. On 11/04 she started to have worsening of rectal bleed , with blood clots per rectum hypotension , fever Tmax 102 and some lower abdominal tenderness. Full septic panel was ordered , Cipro and Flagyl given , IVF bolus started . Patient was then admitted to ICU with diagnosis of hypovolemic shock and GI bleed and rule out sepsis . Her colonoscopy performed at [facility] had shown : diffuse severe inflammation with ulcerations in the entire colon, severe ischemic colitis mucosal ulcerations up to 40cm dinorah. GI ,surgery and ID consulted Underwent Left Colon resection with ileostomy on 11/09 . Transfused total 7 unit PRBC . At present , hemodynamically stable, on med surg and doing well,BS present , iliostomy is working and surgical wound is healing . 1. Hypovolemic shock secondary to GI bleed-- resolved off Levophed drip since 11/05 s/p 7 unit PRBC transfusion received TPN from 11/11 - 11/15 diet advanced and tolerating Promote ambulation with PT Will need rehab 2.Recurrent lower GI bleed due to Ischemic colitis s/p total 7 unit PRBC transfusion with last ubnit yesterday . Hgb today 10 s/p left colon resection with ileostomy 11/09 Oxycodone pRN for pain stoma with good output . Continue renal diet Promote ambulation and out of bed to chair off TPN removed TLC from right groin and placed RUE PICC line 11/16 Wound care as per surgery Received total 10 days of empiric antibiotics with Cipro and flagyl 5 days and Zosyn 5 days 3. Acute on chronic anemia-stable GI blood loss on top of chronic kidney disease anemia s/p 7 unit PRBC transfusion HG 10 today continue Epogen 4. History of recent cardiac arrest/respiratory arrest 5. ESRD on Dialysis MWF Nephro consulted continue HD as scheduled Had HD 11/21 6. History of R CVA 10/24/17 on ASA and Statin Continue PT 7. Paroxysmal Afib patient is in and out SR and afib on monitor, rate controlled on metoprolol no therapeutic anticoag due to GI bleed on ASA 8. DM ruled out Hgb A1c 6 accuchecks and insulin coverage 9. DVT prophylaxis SCDs Hold heparin for now
--- NOTE | 2017-11-21 16:12 | CP.PCM.PN ---
Subjective - Date & Time of Evaluation Date of Evaluation: 11/21/17 Time of Evaluation: 10:00 - Subjective Subjective: Patient seen and examined this morning. No acute events over night. Leukocytosis resolved. Patient had about 50cc of purulent fluid in KITA drain. Afebrile. Objective - Vital Signs/Intake and Output Vital Signs (last 24 hours): Temp Pulse Resp BP Pulse Ox 98.0 F 98 H 18 114/69 100 11/21/17 08:30 11/21/17 13:17 11/21/17 13:17 11/21/17 13:17 11/21/17 13:17 Intake and Output: 11/21/17 11/21/17 06:59 18:59 Output Total 60 Balance -60 - Medications Medications: Current Medications Acetaminophen (Tylenol 325mg Tab) 975 mg PO Q8 [facility] Last Admin: 11/21/17 10:17 Dose: 975 mg Aspirin (Ecotrin) 81 mg PO DAILY [facility] Last Admin: 11/21/17 10:02 Dose: 81 mg Atorvastatin Calcium (Lipitor) 20 mg PO DAILY [facility] Last Admin: 11/21/17 10:02 Dose: 20 mg Epoetin Gonzalo (Procrit) 15,000 unit IV MWF [facility] Last Admin: 11/21/17 10:01 Dose: 15,000 unit Heparin Sodium (Porcine) (Heparin) 5,000 units SC Q8 [facility] PRN Reason: Protocol Last Admin: 11/21/17 10:02 Dose: 5,000 units Insulin Human Regular (Humulin R) 0 units SC ACCU-CHECK [facility] PRN Reason: Protocol Last Admin: 11/21/17 12:42 Dose: Not Given Metoprolol Tartrate (Lopressor) 25 mg PO Q12 [facility] Last Admin: 11/21/17 08:26 Dose: Not Given Ondansetron HCl (Zofran Inj) 4 mg IVP Q4 PRN PRN Reason: Nausea/Vomiting Oxycodone HCl (Oxycodone Immediate Release Tab) 5 mg PO Q6 PRN PRN Reason: Pain, moderate (4-7) Last Admin: 11/18/17 10:39 Dose: 5 mg Pantoprazole Sodium (Protonix Inj) 40 mg IVP DAILY [facility] Last Admin: 11/21/17 10:02 Dose: 40 mg Vitamin B Complex/Vit C/Folic Acid (Nephro-Jyoti) 1 tab PO DAILY [facility] Last Admin: 11/21/17 10:01 Dose: 1 tab - Labs Labs: 11/21/17 06:20 11/20/17 05:50 PT 10.1 Seconds (9.8-13.1) 11/16/17 14:01 INR 0.9 (0.9-1.2) 11/16/17 14:01 APTT 39.3 Seconds (25.6-37.1) H D 11/10/17 16:14 - Constitutional Appears: No Acute Distress - Head Exam Head Exam: NORMOCEPHALIC - Eye Exam Eye Exam: EOMI, Normal appearance - ENT Exam ENT Exam: Mucous Membranes Moist - Respiratory Exam Respiratory Exam: NORMAL BREATHING PATTERN - Cardiovascular Exam Cardiovascular Exam: +S1, +S2 - GI/Abdominal Exam GI & Abdominal Exam: Soft. absent: Distended, Firm, Guarding, Tenderness Additional comments: Retention sutures in place inferior pole incision still draining serosanginous/purulent fluid - Neurological Exam Neurological Exam: Alert, Awake, Oriented x3 - Psychiatric Exam Psychiatric exam: Normal Mood - Skin Skin Exam: Dry, Warm Assessment and Plan - Assessment and Plan (Free Text) Assessment: 67F w/ ischemic colitis s/p left hemicolectomy POD 12 Plan: -Patient clear for d/c from surgical standpoint -Will keep KITA in place until visit follow up -Retention sutures to remain in place -Return to ED immediately if you experience fevers, chills, increasing abdominal pain -Encourage ambulation - C/w nutrition -DVT PPx - Call Dr. Dia office to make appointment [phone]
[2017-11-21 16:54] VITALS: RESP 20
[2017-11-22] MEDS: Insulin Regular 100 units/ml SC SCH ×3 (06:29→12:18)
[2017-11-22 07:01] LABS: MEAN CELL VOLUME 90.5 fl (81.0-99.0); MEAN CORPUSCULAR HGB CONC 33.2 g/dL (33.0-37.0); RBC 3.33 Mil/uL (3.80-5.20); RED CELL DISTRIBUTION WIDTH 18.4 % (11.5-14.5); WHITE BLOOD COUNT 8.3 K/uL (4.8-10.8)
[2017-11-22 07:05] LABS: CALCIUM 9.4 mg/dL (8.4-10.2)
[2017-11-22] MEDS ORDERED: Megestrol Acetate 40 mg/ml Cup PO SCH (09:00)
[2017-11-22] MEDS: Multivitamin Vitamin B Complex (Nephro-Vite) Tab PO SCH (09:42)
--- NOTE | 2017-11-22 11:46 | CP.PCM.DIS ---
Provider - Provider Date of Admission: 11/04/17 09:53 Attending physician: Kandi Lockett MD Time Spent in preparation of Discharge (in minutes): 30 Hospital Course - Lab Results Lab Results: Micro Results 11/19/17 08:37 Naris MRSA Culture (Admit) - Final MRSA NOT DETECTED 11/13/17 16:15 Blood-Thru Central Line Blood Culture - Final NO GROWTH AFTER 5 DAYS 11/13/17 16:15 Blood-Thru Central Line Gram Stain - Final TEST NOT PERFORMED 11/10/17 16:14 Blood-Venous Blood Culture - Final NO GROWTH AFTER 5 DAYS 11/10/17 16:14 Blood-Venous Gram Stain - Final TEST NOT PERFORMED 11/04/17 11:09 Blood Blood Culture - Final NO GROWTH AFTER 5 DAYS 11/04/17 17:59 Urine,Poe Urine Culture - Final No Growth (<1,000 CFU/ML) 11/04/17 18:00 Nose MRSA Culture (Admit) - Final MRSA NOT DETECTED Most Recent Lab Values WBC 8.3 K/uL (4.8-10.8) 11/22/17 05:25 RBC 3.33 Mil/uL (3.80-5.20) L 11/22/17 05:25 Hgb 10.0 g/dL (12.0-16.0) L 11/22/17 05:25 Hct 30.2 % (34.0-47.0) L 11/22/17 05:25 MCV 90.5 fl (81.0-99.0) 11/22/17 05:25 MCH 30.0 pg (27.0-31.0) 11/22/17 05:25 MCHC 33.2 g/dL (33.0-37.0) 11/22/17 05:25 RDW 18.4 % (11.5-14.5) H 11/22/17 05:25 Plt Count 310 K/uL (130-400) 11/22/17 05:25 MPV 7.9 fl (7.2-11.7) 11/15/17 12:00 Neut % (Auto) 89.5 % (50.0-75.0) H 11/15/17 12:00 Lymph % (Auto) 3.8 % (20.0-40.0) L 11/15/17 12:00 [place] % (Auto) 4.7 % (0.0-10.0) 11/15/17 12:00 Eos % (Auto) 1.4 % (0.0-4.0) 11/15/17 12:00 Baso % (Auto) 0.6 % (0.0-2.0) 11/15/17 12:00 Neut # (Auto) 9.4 K/uL (1.8-7.0) H 11/15/17 12:00 Lymph # (Auto) 0.4 K/uL (1.0-4.3) L 11/15/17 12:00 [place] # (Auto) 0.5 K/uL (0.0-0.8) 11/15/17 12:00 Eos # (Auto) 0.2 K/uL (0.0-0.7) 11/15/17 12:00 Baso # (Auto) 0.1 K/uL (0.0-0.2) 11/15/17 12:00 Neutrophils % (Manual) 90 % (42-75) H 11/14/17 04:30 Band Neutrophils % 1 % (0-2) 11/14/17 04:30 Lymphocytes % (Manual) 3 % (20-50) L 11/14/17 04:30 Monocytes % (Manual) 3 % (0-10) 11/14/17 04:30 Eosinophils % (Manual) 2 % (0-7) 11/14/17 04:30 Myelocytes % 1 % (0-0) H 11/14/17 04:30 Nucleated RBC % 1 % (0-0) H 11/14/17 04:30 Platelet Estimate Decreased (NORMAL) L 11/14/17 04:30 Large Platelets Present 11/14/17 04:30 Hypochromasia (manual) Moderate 11/14/17 04:30 Poikilocytosis (manual Slight 11/09/17 04:20 Basophilic Stippling Slight 11/14/17 04:30 Anisocytosis (manual) Slight 11/14/17 04:30 Tear Drop Cells Slight 11/14/17 04:30 Ovalocytes Slight 11/14/17 04:30 Schistocytes Slight 11/14/17 04:30 PT 10.1 Seconds (9.8-13.1) 11/16/17 14:01 INR 0.9 (0.9-1.2) 11/16/17 14:01 APTT 39.3 Seconds (25.6-37.1) H D 11/10/17 16:14 Fibrinogen 422 mg/dl (200-400) H 11/09/17 04:20 pCO2 35 mm/Hg (35-45) 11/09/17 10:47 pO2 344 mm/Hg (80-100) H 11/09/17 10:47 HCO3 23.4 mmol/L (21-28) 11/09/17 10:47 ABG pH 7.41 (7.35-7.45) 11/09/17 10:47 ABG Total CO2 23.3 mmol/L (22-28) 11/09/17 10:47 ABG O2 Saturation 98.9 % (95-98) H 11/09/17 10:47 ABG Base Excess -2.0 mmol/L (-2.0-3.0) 11/09/17 10:47 Mariusz Test Yes 11/09/17 10:47 ABG Potassium 3.9 mmol/L (3.6-5.2) 11/09/17 10:47 A-a O2 Difference -238.0 mm/Hg 11/09/17 10:47 Sodium 132.0 mmol/L (132-148) 11/09/17 10:47 Chloride 110.0 mmol/L (98-107) H 11/09/17 10:47 Glucose 92 mg/dL (65-105) 11/09/17 10:47 Lactate 0.9 mmol/L (0.7-2.1) 11/09/17 10:47 Vent Mode Nc 11/04/17 10:25 FiO2 21.0 % 11/09/17 10:47 Sodium 136 mmol/l (132-148) 11/22/17 05:30 Potassium 4.0 MMOL/L (3.6-5.0) 11/22/17 05:30 Chloride 98 mmol/L (98-107) 11/22/17 05:30 Carbon Dioxide 28 mmol/L (22-30) 11/22/17 05:30 Anion Gap 14 (10-20) 11/22/17 05:30 BUN 17 mg/dl (7-17) 11/22/17 05:30 Creatinine 2.9 mg/dl (0.7-1.2) H 11/22/17 05:30 Est GFR ( Amer) 19 11/22/17 05:30 Est GFR (Non-Af Amer) 16 11/22/17 05:30 POC Glucose (mg/dL) 86 mg/dL (65-110) 11/22/17 11:16 Random Glucose 76 mg/dL (65-105) 11/22/17 05:30 Hemoglobin A1c 6.0 % (4.2-6.5) 11/06/17 04:20 Lactic Acid 0.7 MMOL/L (0.7-2.1) 11/08/17 04:20 Calcium 9.4 mg/dL (8.4-10.2) 11/22/17 05:30 Phosphorus 4.4 mg/dl (2.5-4.5) 11/19/17 06:20 Magnesium 1.9 MG/DL (1.6-2.3) 11/19/17 06:20 Total Bilirubin 0.6 mg/dl (0.2-1.3) 11/19/17 06:20 AST 26 U/L (14-36) 11/19/17 06:20 ALT 28 U/L (9-52) 11/19/17 06:20 Alkaline Phosphatase 376 U/L (38-126) H D 11/19/17 06:20 Troponin I 0.1200 ng/mL (0.00-0.120) 11/04/17 11:09 Total Protein 5.5 G/DL (6.3-8.2) L 11/19/17 06:20 Albumin 2.3 g/dL (3.5-5.0) L 11/19/17 06:20 Globulin 3.2 gm/dL (2.2-3.9) 11/19/17 06:20 Albumin/Globulin Ratio 0.7 (1.0-2.1) L 11/19/17 06:20 Triglycerides 162 mg/DL (0-149) H D 11/15/17 04:30 Cholesterol 68 mg/dL (0-199) 11/15/17 04:30 LDL Cholesterol Direct 34 mg/dL (0-129) 11/15/17 04:30 HDL Cholesterol 9 MG/DL (30-70) L 11/15/17 04:30 Procalcitonin 2.63 NG/ML (0.19-0.49) H 11/07/17 16:05 Arterial Blood Potassium 3.9 mmol/L (3.6-5.2) 11/09/17 10:47 Urine Color Yellow (YELLOW) 11/04/17 17:59 Urine Clarity Slighty-cloudy (Clear) 11/04/17 17:59 Urine pH 7.0 (5.0-8.0) 11/04/17 17:59 Ur Specific [place] 1.009 (1.003-1.030) 11/04/17 17:59 Urine Protein 100 mg/dL (NEGATIVE) 11/04/17 17:59 Urine Glucose (UA) >=500 mg/dL (Normal) 11/04/17 17:59 Urine Ketones Negative mg/dL (NEGATIVE) 11/04/17 17:59 Urine Blood Negative (NEGATIVE) 11/04/17 17:59 Urine Nitrate Negative (NEGATIVE) 11/04/17 17:59 Urine Bilirubin Negative (NEGATIVE) 11/04/17 17:59 Urine Urobilinogen 0.2-1.0 mg/dL (0.2-1.0) 11/04/17 17:59 Ur Leukocyte Esterase Neg Nidia/uL (Negative) 11/04/17 17:59 Urine RBC (Auto) 1 /hpf (0-3) 11/04/17 17:59 Urine Microscopic WBC 4 /hpf (0-5) 11/04/17 17:59 Ur Squamous Epith Cells < 1 /hpf (0-5) 11/04/17 17:59 C. difficile Ag & Toxin Negative (NEGATIVE) 11/07/17 18:15 Blood Type O POSITIVE 11/20/17 15:30 Antibody Screen Negative 11/20/17 15:30 Crossmatch See Detail 11/20/17 15:30 BBK History Checked Patient has bt 11/20/17 15:30 - Hospital Course Hospital Course: 67 yo female with multiple medical problems like ESRD on dialysis,HTN, obesity , history of old CVA in 2011, atrial fibrillation,with history of recent CVA on right MCA distribution was initially admitted to [facility] where she developed GI bleed with hemorrhagic shock and severe ischemic colitis diagnosed with colonoscopy. She also had a cardiac arrest and respiratory failure requiring intubation . After improving she was transferred to acute rehab for physical therapy where she continued to have some episodes of GI bleed. On 11/04 she started to have worsening of rectal bleed , with blood clots per rectum hypotension, fever Tmax 102 and some lower abdominal tenderness. Full septic panel was ordered , Cipro and Flagyl given, IVF bolus started. Patient was then admitted to ICU with diagnosis of hypovolemic shock and GI bleed and rule out sepsis. Her colonoscopy performed at [facility] had shown: diffuse severe inflammation with ulcerations in the entire colon, severe ischemic colitis mucosal ulcerations up to 40cm dinorah. GI, surgery and ID consulted Underwent Left Colon resection with ileostomy on 11/09. Transfused total 7 unit PRBC. Hemodynamically stable, iliostomy is working and surgical wound is healing. Patient eating, conversing. Stable for discharge to acute rehab. 1. Hypovolemic shock secondary to GI bleed-- resolved off Levophed drip since 11/05 s/p 7 unit PRBC transfusion received TPN from 11/11 - 11/15 diet advanced and tolerating Promote ambulation with PT Will need rehab 2. Recurrent lower GI bleed due to Ischemic colitis s/p total 7 unit PRBC transfusion with last unit 2 days ago. Hgb today 10 s/p left colon resection with ileostomy 11/09 Oxycodone PRN for pain stoma with good output . Continue renal diet Promote ambulation and out of bed to chair off TPN removed TLC from right groin and placed RUE PICC line 11/16 Wound care as per surgery Received total 10 days of empiric antibiotics with Cipro and flagyl 5 days and Zosyn 5 days 3. Acute on chronic anemia-stable GI blood loss on top of chronic kidney disease anemia s/p 7 unit PRBC transfusion HG 10 today continue Epogen 4. History of recent cardiac arrest/respiratory arrest 5. ESRD on Dialysis MWF Nephro consulted continue HD as scheduled Had HD 11/21 6. History of R CVA 10/24/17 on ASA and Statin Continue PT 7. Paroxysmal Afib patient is in and out SR and afib on monitor, rate controlled on metoprolol no therapeutic anticoag due to GI bleed on ASA 8. DM ruled out Hgb A1c 6 accuchecks and insulin coverage 9. DVT prophylaxis SCDs Hold heparin for now Discharge Exam - Head Exam Additional comments: Vitals Reviewed GEN: WDWN, alert, cooperative HEENT: NCAT, PERRL, EOMI HEART: RRR, +S1S2, NO MRG LUNG: CTAB, NO WRR ABD: soft, NT, ND, No HSM, No masses EXT: normal pedal pulses, normal capillary refill NEURO: awake, alert SKIN: warm, dry PSYCH: normal mood, normal affect Discharge Plan - Follow Up Plan Condition: CRITICAL Disposition: HOME/ ROUTINE Instructions: Ischemic Bowel Disease (DC), Gastrointestinal Bleeding (DC), Renal Failure Diet (DC), Gastrointestinal Bleeding (GEN) Additional Instructions: -Will keep KITA in place until visit follow up -Retention sutures to remain in place -Return to ED immediately if you experience fevers, chills, increasing abdominal pain -Encourage ambulation - C/w nutrition -DVT PPx -Change and pack lower abdominal incision with 1/2" iodoform daily - Call Dr. Dia office to make appointment [phone] Referrals: Kevin Jones MD [Staff Provider] - Serafin Dia MD [Staff Provider] -
[2017-11-22 16:27] VITALS: BP 116/80; PULSE 88; TEMP 98.2; O2SAT 100
== END 2017-11-22 16:41 | DRG 853 ==
LOC: H.ER 09:47 → H.ERHOLD 09:53 → H.ICU/CCU 12:08 → H.MEDSURG1 11-18 12:19
PROVIDERS: ADMIT Hospitalist; ATTEND Hospitalist
PROC: 5A1D70Z Performance of Urinary Filtration, Intermittent, Less than 6 Hours Per Day (ICD-10-PCS; 2017-11-05)
PROC: 30233N1 Transfusion of Nonautologous Red Blood Cells into Peripheral Vein, Percutaneous Approach (ICD-10-PCS; 2017-11-08)
PROC: 30233K1 Transfusion of Nonautologous Frozen Plasma into Peripheral Vein, Percutaneous Approach (ICD-10-PCS; 2017-11-08)
PROC: 3E0T3BZ Introduction of Anesthetic Agent into Peripheral Nerves and Plexi, Percutaneous Approach (ICD-10-PCS; 2017-11-09)
PROC: 0DTG0ZZ Resection of Left Large Intestine, Open Approach (ICD-10-PCS; principal; 2017-11-09 07:45)
PROC: 0D1M0Z4 Bypass Descending Colon to Cutaneous, Open Approach (ICD-10-PCS; 2017-11-09 07:45)
PROC: 0DJD8ZZ Inspection of Lower Intestinal Tract, Via Natural or Artificial Opening Endoscopic (ICD-10-PCS; 2017-11-09 07:45)
PROC: 3E0336Z Introduction of Nutritional Substance into Peripheral Vein, Percutaneous Approach (ICD-10-PCS; 2017-11-13)
PROC: 02HV33Z Insertion of Infusion Device into Superior Vena Cava, Percutaneous Approach (ICD-10-PCS; 2017-11-15)
PROC: B518ZZA Fluoroscopy of Superior Vena Cava, Guidance (ICD-10-PCS; 2017-11-15)
PROC: 3E04329 Introduction of Other Anti-infective into Central Vein, Percutaneous Approach (ICD-10-PCS; 2017-11-15)
DX: A41.9 Sepsis, unspecified organism (principal); R65.21 Severe sepsis with septic shock; R57.1 Hypovolemic shock; N18.6 End stage renal disease; K55.8 Other vascular disorders of intestine; R57.8 Other shock; D62 Acute posthemorrhagic anemia; I12.0 Hypertensive chronic kidney disease with stage 5 chronic kidney disease or end stage renal disease; D68.8 Other specified coagulation defects; E87.1 Hypo-osmolality and hyponatremia; N25.81 Secondary hyperparathyroidism of renal origin; K63.3 Ulcer of intestine; I69.344 Monoplegia of lower limb following cerebral infarction affecting left non-dominant side; I48.0 Paroxysmal atrial fibrillation; I48.2 Chronic atrial fibrillation; E87.6 Hypokalemia; D63.1 Anemia in chronic kidney disease; E11.22 Type 2 diabetes mellitus with diabetic chronic kidney disease; E03.9 Hypothyroidism, unspecified; E78.5 Hyperlipidemia, unspecified; K57.30 Diverticulosis of large intestine without perforation or abscess without bleeding; E83.39 Other disorders of phosphorus metabolism; E78.00 Pure hypercholesterolemia, unspecified; J45.909 Unspecified asthma, uncomplicated; Z99.2 Dependence on renal dialysis; Z86.74 Personal history of sudden cardiac arrest; Z87.11 Personal history of peptic ulcer disease; Z91.040 Latex allergy status

== ENCOUNTER 2017-11-22 13:18 | Inpatient (IN) | payer MEDICARE, BC, MEDICAID ==
[2017-11-22 13:32] VITALS: BMI 31.4
[2017-11-22] MEDS: Silver Sulfadiazine 1% CREAM (50 gm) TOP SCH (21:52)
[2017-11-22] MEDS: Insulin Regular 100 units/ml SC SCH (21:52)
[2017-11-23] MEDS: Insulin Regular 100 units/ml SC SCH ×4 (07:23→21:03)
[2017-11-23 08:31] LABS: HEMOGLOBIN 9.7 g/dL (12.0-16.0); MEAN CELL VOLUME 91.7 fl (81.0-99.0); MEAN CORPUSCULAR HEMOGLOBIN 29.4 pg (27.0-31.0); MEAN CORPUSCULAR HGB CONC 32.1 g/dL (33.0-37.0); RBC 3.3 Mil/uL (3.80-5.20); RED CELL DISTRIBUTION WIDTH 18.5 % (11.5-14.5); WHITE BLOOD COUNT 9.9 K/uL (4.8-10.8)
[2017-11-23 08:46] LABS: CALCIUM 9.4 mg/dL (8.4-10.2)
[2017-11-23] MEDS: Pantoprazole 40 mg EC Tab PO SCH (09:03)
[2017-11-23] MEDS: Multivitamin Vitamin B Complex (Nephro-Vite) Tab PO SCH (09:03)
[2017-11-23] MEDS: Megestrol Acetate 40 mg/ml Cup PO SCH (09:03)
[2017-11-23] MEDS: Iodoform 1/2inx15ft BOT EXT SCH (09:03)
[2017-11-23] MEDS: Silver Sulfadiazine 1% CREAM (50 gm) TOP SCH ×2 (09:04→16:43)
--- NOTE | 2017-11-23 10:01 | PCM.OPOC ---
Physiatry Overall Plan of Care - Overall Plan of Care Estimated Length of Stay in Weeks: 3 Rehab Impairment: Mobility, Gait, Balance, Coordination Etiologic Diagnosis: Cerebrovascular Accident - Anticipated Interventions Physical Therapy:: Yes Occupational Therapy:: Yes Speech Therapy:: No Recreational Therapy:: Yes - Therapy Goals Bed Mobility: Minimal Assistance Ambulation: Minimal Assistance Functional Positional Changes:: Minimal Assistance - Discharge Plan Discharge Destination: Subacute
--- NOTE | 2017-11-23 10:05 | CP.PCM.CON ---
History of Present Illness - History of Present Illness History of Present Illness: Dr Villafuerte PMR consultation on Caroline Isabel, born 1950, who has been admitted again to [facility] for acute inpatient rehabilitation. She was initially admitted following an admission with N/V and right CVA with left HP. Multiple medical problems with limited function. + LGIB, s/p cardiac arrest She then had to be transferred given diverticulosis and required left hemicolectomy with left colostomy and large central incision with retention sutures. Complicated with right dorsal hand necrosis with a 4x3cm soft brown eschar. Very weak overall now Review of Systems - Constitutional Constitutional: absent: Excessive Sweating, Headache - EENT Eyes: absent: Itchy Eyes Ears: absent: Ear Pain Nose/Mouth/Throat: absent: Nasal Congestion - Cardiovascular Cardiovascular: absent: Chest Pain - Respiratory Respiratory: Dyspnea on Exertion - Gastrointestinal Gastrointestinal: Abdominal Pain. absent: Cramping - Neurological Neurological: absent: Abnormal Movements, Behavioral Changes, Dizziness - Psychiatric Psychiatric: absent: Anxiety Past Patient History - Infectious Disease Hx of Infectious Diseases: None - Tetanus Immunizations Tetanus Immunization: Up to Date - Past Medical History & Family History Past Medical History?: Yes - Past Social History Smoking Status: Never Smoked Alcohol: None Drugs: Denies Home Situation {Lives}: With Family - CARDIAC Hx Cardiac Disorders: Yes Hx Hypertension: Yes - PULMONARY Hx Asthma: Yes Hx Bronchitis: No Hx Chronic Obstructive Pulmonary Disease (COPD): No Hx Emphysema: No Hx Pneumonia: No Hx Sleep Apnea: No - NEUROLOGICAL HX Cerebrovascular Accident: Yes (2011;2017) - HEENT Hx HEENT Problems: No Hx Cataracts: Yes (Cataract surgery June 2017) - RENAL Hx Chronic Kidney Disease: Yes Hx Dialysis: Yes Type of Dialysis Access: permacath Date of Last Dialysis Treatment: 11/21/17 Hx Kidney Stones: No Hx Renal Failure: Yes - ENDOCRINE/METABOLIC Hx Diabetes Mellitus Type 2: Yes - HEMATOLOGICAL/ONCOLOGICAL Hx Anemia: Yes (secondary to rectal bleeding-resolved.) Hx Sickle Cell Disease: No - INTEGUMENTARY Hx Dermatological Problems: No - MUSCULOSKELETAL/RHEUMATOLOGICAL Hx Falls: No - GASTROINTESTINAL Hx Bowel Surgery: Yes Hx Colitis: Yes (Ischemic colitis) Hx Crohn's Disease: No Hx Diverticulitis: Yes Hx Gall Bladder Disease: No Hx Ileostomy: Yes (2017) Hx Pancreatitis: No - GENITOURINARY/GYNECOLOGICAL Hx Sexually Transmitted Disorders: No - PSYCHIATRIC Hx Substance Use: No - SURGICAL HISTORY Hx Appendectomy: No Hx Cholecystectomy: No Hx Coronary Stent: No Other/Comment: Right breast Lumpectomy 1974 - ANESTHESIA Hx Anesthesia: Yes Hx Anesthesia Reactions: No Hx Malignant Hyperthermia: No Meds Allergies/Adverse Reactions: Allergies Allergy/AdvReac Type Severity Reaction Status Date / Time Latex, Natural Rubber Allergy Unknown RASH Verified 10/26/17 14:13 - Medications Medications: Current Medications Acetaminophen (Tylenol 325mg Tab) 975 mg PO Q8 PRN PRN Reason: Pain, Mild (1-3) Aspirin (Ecotrin) 81 mg PO DAILY [facility] Last Admin: 11/23/17 09:03 Dose: 81 mg Atorvastatin Calcium (Lipitor) 20 mg PO HS@2200 [facility] Epoetin Gonzalo (Procrit) 15,000 unit IV MWF [facility] Heparin Sodium (Porcine) (Heparin) 5,000 units SC Q8 [facility] PRN Reason: Protocol Last Admin: 11/23/17 06:38 Dose: 5,000 units Insulin Human Regular (Humulin R) 0 units SC ACHS [facility] PRN Reason: Protocol Last Admin: 11/23/17 07:23 Dose: Not Given Megestrol Acetate (Megace) 400 mg PO DAILY [facility] Last Admin: 11/23/17 09:03 Dose: 400 mg Metoprolol Tartrate (Lopressor) 25 mg PO Q12 [facility] Last Admin: 11/23/17 09:03 Dose: 25 mg Ondansetron HCl (Zofran Odt) 4 mg PO Q8H PRN PRN Reason: Nausea/Vomiting Oxycodone HCl (Oxycodone Immediate Release Tab) 5 mg PO Q6 PRN PRN Reason: Pain 4-10 Pantoprazole Sodium (Protonix Ec Tab) 40 mg PO DAILY [facility] Last Admin: 11/23/17 09:03 Dose: 40 mg Silver Sulfadiazine (Silvadene 1% 50 Gm) 1 applic TOP BID [facility] Last Admin: 11/23/17 09:04 Dose: 1 applic Vitamin B Complex/Vit C/Folic Acid (Nephro-Jyoti) 1 tab PO DAILY [facility] Last Admin: 11/23/17 09:03 Dose: 1 tab Physical Exam - Constitutional Appears: Other (weak, overweight) - Head Exam Head Exam: ATRAUMATIC - Eye Exam Eye Exam: EOMI - ENT Exam ENT Exam: Mucous Membranes Moist - Respiratory Exam Respiratory Exam: NORMAL BREATHING PATTERN - Cardiovascular Exam Cardiovascular Exam: Tachycardia - GI/Abdominal Exam GI & Abdominal Exam: absent: Guarding (Large central retention sutures with two pea sized openings) - Extremities Exam Extremities exam: Negative for: calf tenderness (right hand with 4x3cm soft, brown eschar) - Neurological Exam Neurological exam: Alert, CN II-XII Intact, Oriented x3 - Psychiatric Exam Psychiatric exam: Normal Affect, Normal Mood Results - Vital Signs Recent Vital Signs: Last Vital Signs Temp 98.2 F 11/23/17 08:00 Pulse 94 H 11/23/17 09:03 Resp 20 11/23/17 08:00 BP 143/90 11/23/17 09:03 Pulse Ox 100 11/23/17 08:00 - Labs Result Diagrams: 11/23/17 08:15 11/23/17 08:15 Labs: Laboratory Results - last 24 hr 11/22/17 11/23/17 11/23/17 21:03 07:08 08:15 WBC 9.9 RBC 3.30 L Hgb 9.7 L Hct 30.2 L MCV 91.7 MCH 29.4 MCHC 32.1 L RDW 18.5 H Plt Count 371 Sodium Potassium Chloride Carbon Dioxide Anion Gap BUN Creatinine Est GFR ( Amer) Est GFR (Non-Af Amer) POC Glucose (mg/dL) 130 H 88 Random Glucose Calcium 11/23/17 08:15 WBC RBC Hgb Hct MCV MCH MCHC RDW Plt Count Sodium 137 Potassium 4.2 Chloride 98 Carbon Dioxide 28 Anion Gap 15 BUN 26 H Creatinine 4.2 H Est GFR ( Amer) 13 Est GFR (Non-Af Amer) 10 POC Glucose (mg/dL) Random Glucose 90 Calcium 9.4 Assessment & Plan - Assessment and Plan (Free Text) Assessment: CVA with multiple medical problems Colostomy with central retention sutures, not fully healed right hand eschar- will use silvadene bid Poor overall prognosis given medical status PT/OT to continue to help increase functional independence Team conference for d/c planning Pain: controlled Vascular: no evidence of DVT GI: Continue local wound care and colostomy care Patient is in need of acute rehabilitation given multiple medical issues that make her an unsafe candidate for [facility] at this point. They will have focused pain management, wound care, PT, OT and recreational therapy to help facilitate a safe and appropriate d/c plan Impairment code: 01.1
--- NOTE | 2017-11-23 11:53 | CP.PCM.HP ---
History of Present Illness - History of Present Illness History of Present Illness: 67 yo female with multiple medical problems like ESRD on dialysis,HTN, obesity , history of old CVA in 2011, atrial fibrillation,with history of recent CVA on right MCA distribution was initially admitted to [facility] where she developed GI bleed with hemorrhagic shock and severe ischemic colitis diagnosed with colonoscopy. She also had a cardiac arrest and respiratory failure requiring intubation . After improving she was transferred to acute rehab for physical therapy where she continued to have some episodes of GI bleed. On 11/04 she started to have worsening of rectal bleed , with blood clots per rectum hypotension, fever Tmax 102 and some lower abdominal tenderness. Full septic panel was ordered , Cipro and Flagyl given, IVF bolus started. Patient was then admitted to ICU with diagnosis of hypovolemic shock and GI bleed and rule out sepsis. Her colonoscopy performed at [facility] had shown: diffuse severe inflammation with ulcerations in the entire colon, severe ischemic colitis mucosal ulcerations up to 40cm dinorah. GI, surgery and ID consulted Underwent Left Colon resection with ileostomy on 11/09. Transfused total 7 unit PRBC. Hemodynamically stable, iliostomy is working and surgical wound is healing. Patient is now being admitted to acute rehabilitation for PT/OT due to deconditioning and due to her hx CVA. Past medical history: End-stage renal disease on dialysis 3 days a week MWF, Diverticulosis, CVA, hypertension, asthma, GI bleed, Type 2 DM Past surgical history: AV fistula, colonoscopy 08/13/2014 Allergies: No known drug allergies. Family history: Noncontributory this time Social history: No history of tobacco use, EtOH or illicit drugs Medications: Reviewed as per MAR Present on Admission - Present on Admission Any Indicators Present on Admission: No Review of Systems - Review of Systems Review of Systems: A 12 point review of systems was conducted and found to be negative other than what was mentioned in the HPI. Past Patient History - Infectious Disease Hx of Infectious Diseases: None - Tetanus Immunizations Tetanus Immunization: Up to Date - Past Medical History & Family History Past Medical History?: Yes - Past Social History Smoking Status: Never Smoked Alcohol: None Drugs: Denies Home Situation {Lives}: With Family - CARDIAC Hx Cardiac Disorders: Yes Hx Hypertension: Yes - PULMONARY Hx Asthma: Yes Hx Bronchitis: No Hx Chronic Obstructive Pulmonary Disease (COPD): No Hx Emphysema: No Hx Pneumonia: No Hx Sleep Apnea: No - NEUROLOGICAL HX Cerebrovascular Accident: Yes (2011;2017) - HEENT Hx HEENT Problems: No Hx Cataracts: Yes (Cataract surgery June 2017) - RENAL Hx Chronic Kidney Disease: Yes Hx Dialysis: Yes Type of Dialysis Access: permacath Date of Last Dialysis Treatment: 11/21/17 Hx Kidney Stones: No Hx Renal Failure: Yes - ENDOCRINE/METABOLIC Hx Diabetes Mellitus Type 2: Yes - HEMATOLOGICAL/ONCOLOGICAL Hx Anemia: Yes (secondary to rectal bleeding-resolved.) Hx Sickle Cell Disease: No - INTEGUMENTARY Hx Dermatological Problems: No - MUSCULOSKELETAL/RHEUMATOLOGICAL Hx Falls: No - GASTROINTESTINAL Hx Bowel Surgery: Yes Hx Colitis: Yes (Ischemic colitis) Hx Crohn's Disease: No Hx Diverticulitis: Yes Hx Gall Bladder Disease: No Hx Ileostomy: Yes (2017) Hx Pancreatitis: No - GENITOURINARY/GYNECOLOGICAL Hx Sexually Transmitted Disorders: No - PSYCHIATRIC Hx Substance Use: No - SURGICAL HISTORY Hx Appendectomy: No Hx Cholecystectomy: No Hx Coronary Stent: No Other/Comment: Right breast Lumpectomy 1973 - ANESTHESIA Hx Anesthesia: Yes Hx Anesthesia Reactions: No Hx Malignant Hyperthermia: No Meds Allergies/Adverse Reactions: Allergies Allergy/AdvReac Type Severity Reaction Status Date / Time Latex, Natural Rubber Allergy Unknown RASH Verified 10/26/17 14:13 Physical Exam - Additional Findings Additional findings: Physical exam: Constitutional- cooperative, awake, alert Head- NCAT, PERRL Eye- PERRL, EOMI ENT- normal exam, MMM. Neck- normal inspection, supple, no JVD Respiratory- CTAB, no wheezes rales rhonchi Cardiovascular- RRR, +S1, +S2 no MRG GI/Abdominal- normal bowel sounds, soft, no mass, no hsm. midline surgical incision healing well, with dressing and henry in place. RLQ KITA drain in place with light brownish output. Iliostomy to LLQ , stoma is healthy and working well right lower abdominal fold small skin tear Skin- warm, dry. Extremities Exam- normal capillary refill, normal inspection Neurological Exam- alert, awake, oriented Psych- normal mood, normal affect Results - Vital Signs Recent Vital Signs: Last Vital Signs Temp 98.2 F 11/23/17 08:00 Pulse 94 H 11/23/17 09:03 Resp 20 11/23/17 08:00 BP 143/90 11/23/17 09:03 Pulse Ox 100 11/23/17 08:00 - Labs Result Diagrams: 11/23/17 08:15 11/23/17 08:15 Labs: Laboratory Results - last 24 hr 11/22/17 11/23/17 11/23/17 21:03 07:08 08:15 WBC 9.9 RBC 3.30 L Hgb 9.7 L Hct 30.2 L MCV 91.7 MCH 29.4 MCHC 32.1 L RDW 18.5 H Plt Count 371 Sodium Potassium Chloride Carbon Dioxide Anion Gap BUN Creatinine Est GFR ( Amer) Est GFR (Non-Af Amer) POC Glucose (mg/dL) 130 H 88 Random Glucose Calcium 11/23/17 08:15 WBC RBC Hgb Hct MCV MCH MCHC RDW Plt Count Sodium 137 Potassium 4.2 Chloride 98 Carbon Dioxide 28 Anion Gap 15 BUN 26 H Creatinine 4.2 H Est GFR ( Amer) 13 Est GFR (Non-Af Amer) 10 POC Glucose (mg/dL) Random Glucose 90 Calcium 9.4 Assessment & Plan - Assessment and Plan (Free Text) Plan: 67 yo female with multiple medical problems like ESRD on dialysis,HTN, obesity , history of old CVA in 2011, atrial fibrillation,with history of recent CVA on right MCA distribution was initially admitted to [facility] where she developed GI bleed with hemorrhagic shock and severe ischemic colitis diagnosed with colonoscopy. She also had a cardiac arrest and respiratory failure requiring intubation . After improving she was transferred to acute rehab for physical therapy where she continued to have some episodes of GI bleed. On 11/04 she started to have worsening of rectal bleed , with blood clots per rectum hypotension, fever Tmax 102 and some lower abdominal tenderness. Full septic panel was ordered , Cipro and Flagyl given, IVF bolus started. Patient was then admitted to ICU with diagnosis of hypovolemic shock and GI bleed and rule out sepsis. Her colonoscopy performed at [facility] had shown: diffuse severe inflammation with ulcerations in the entire colon, severe ischemic colitis mucosal ulcerations up to 40cm dinorah. GI, surgery and ID consulted Underwent Left Colon resection with ileostomy on 11/09. Transfused total 7 unit PRBC. Hemodynamically stable, iliostomy is working and surgical wound is healing. 1. s/p Hypovolemic shock secondary to GI bleed-- resolved off Levophed drip since 11/05 s/p 7 unit PRBC transfusion received TPN from 11/11 - 11/15 diet advanced and tolerating In acute rehab for PT/OT 2. Recurrent lower GI bleed due to Ischemic colitis s/p total 7 unit PRBC transfusion with last unit 2 days ago. Hgb today 10 s/p left colon resection with ileostomy 11/09 Oxycodone PRN for pain stoma with good output . Continue renal diet Promote ambulation and out of bed to chair off TPN removed TLC from right groin and placed RUE PICC line 11/16 Wound care as per surgery Received total 10 days of empiric antibiotics with Cipro and flagyl 5 days and Zosyn 5 days 3. Acute on chronic anemia-stable GI blood loss on top of chronic kidney disease anemia s/p 7 unit PRBC transfusion HG 10 today continue Epogen 4. History of recent cardiac arrest/respiratory arrest 5. ESRD on Dialysis MWF Nephro consulted continue HD as scheduled Had HD 11/21 6. History of R CVA 10/24/17 on ASA and Statin Continue PT 7. Paroxysmal Afib patient is in and out SR and afib on monitor, rate controlled on metoprolol no therapeutic anticoag due to GI bleed on ASA 8. DM ruled out Hgb A1c 6 accuchecks and insulin coverage 9. DVT prophylaxis SCDs Hold heparin for now
--- NOTE | 2017-11-23 14:10 | CP.PCM.CON ---
History of Present Illness - History of Present Illness History of Present Illness: Nephrology Consultation Note Assessment: stable GI bleed, ischemic colitis s/p hemicolectomy Diabetic chronic Kidney Disease (E11.22) Hypertensive Chronic Kidney Disease (I12.0) End stage renal disease (N18.6) dependence on hemodialysis (Z99.2) (MWF) via permacath Anemia (D64.9), Hyperphosphatemia (E83.39), Secondary Hyperparathyroidism (E21.1 ), HTN (I12.0) hx of CVA Plan: Will plan for HD today as ordered MWF schedule. Continue with Nephrovite 1 tab/ day. PRBC as needed for anemia. On DEYA as epogen with HD, last Hb 9.7 held phos binders Initially level of phos low, last phos level 4.4, repeat with next labs BP control with meds as ordered. Patient not on RAAS sony as BP tends to be low Glycemic control, Dialysis consistent diet Further work up/management as per primary team Dose meds/antibiotics (if needed) for ESRD status. Avoid fleets enema/magnesium based laxatives. Thanks for allowing me to participate in care of your patient. Will follow patient with you. Please call if any Qs. Dr Marvin Sapp Office: [phone] Chief complaint I feel weak Reason for consultation ESRD management HPI; patient is a 67-year-old female with history of diabetes mellitus hypertension hyperlipidemia ESRD on hemodialysis Sunday with Dr. Aguilar/Dr Vega at [place], Had a prolonged hospital course recently with acute CVA ischemic colitis status post hemicolectomy requiring multiple PRBC, Av access bleeding status post closure now has permacath, now transferred to rehabilitation. Renal consultation for ESRD management Patient at this time feels weak but she denies any shortness of breath chest pain palpitations nausea vomiting ROS:Patients feels okay. Denies chest pain, palpitation, shortness of breath, c/o leg swelling. All other negative Except as mentioned in HPI Physical Examination: General Appearance: Comfortable, in no acute respiratory distress, co-operative . Vitals reviewed and noted as below Head; Atraumatic, normocephalic ENT: no ulcers no thrush. Tongue is midline. Oropharynx: no rash or ulcers. EYES: Pupils are equal, round and reactive to light accommodation. Eye muscles and extraocular movement intact. Sclera is anicteric. Neck; supple no lymphadenopathy, no thyromegaly or bruit Lungs: Normal respiratory rate/effort. Breath sounds bilateral equal and clear Heart: Normal rate. s1s2 normal. No rub or gallop. Extremities: 1+ edema. No varicose veins Neurological: Patient is awake alert Follows commands Skin: Warm and dry. Normal turgor. No rash. Palpitation: Normal elasticity for age Abdomen: Abdomen is soft. Bowel sounds +. There is no abdominal tenderness, no guarding/rigidity or organomegaly. has left colostomy and midline henry + Psych: limited insight. normal affect/mood MSK: no joint tenderness or swelling. Digits and nails normal, no deformity : kidney or bladder not palpable Access: permacath Labs/imaging reviewed. Past medical history, past surgical history, family history, social history, allergy reviewed and noted as below Family Hx: no hx of CKD. Non contributory Past Patient History - Infectious Disease Hx of Infectious Diseases: None - Tetanus Immunizations Tetanus Immunization: Up to Date - Past Medical History & Family History Past Medical History?: Yes - Past Social History Smoking Status: Never Smoked Alcohol: None Drugs: Denies Home Situation {Lives}: With Family - CARDIAC Hx Cardiac Disorders: Yes Hx Hypertension: Yes - PULMONARY Hx Asthma: Yes Hx Bronchitis: No Hx Chronic Obstructive Pulmonary Disease (COPD): No Hx Emphysema: No Hx Pneumonia: No Hx Sleep Apnea: No - NEUROLOGICAL HX Cerebrovascular Accident: Yes (2011;2017) - HEENT Hx HEENT Problems: No Hx Cataracts: Yes (Cataract surgery June 2017) - RENAL Hx Chronic Kidney Disease: Yes Hx Dialysis: Yes Type of Dialysis Access: permacath Date of Last Dialysis Treatment: 11/21/17 Hx Kidney Stones: No Hx Renal Failure: Yes - ENDOCRINE/METABOLIC Hx Diabetes Mellitus Type 2: Yes - HEMATOLOGICAL/ONCOLOGICAL Hx Anemia: Yes (secondary to rectal bleeding-resolved.) Hx Sickle Cell Disease: No - INTEGUMENTARY Hx Dermatological Problems: No - MUSCULOSKELETAL/RHEUMATOLOGICAL Hx Falls: No - GASTROINTESTINAL Hx Bowel Surgery: Yes Hx Colitis: Yes (Ischemic colitis) Hx Crohn's Disease: No Hx Diverticulitis: Yes Hx Gall Bladder Disease: No Hx Ileostomy: Yes (2017) Hx Pancreatitis: No - GENITOURINARY/GYNECOLOGICAL Hx Sexually Transmitted Disorders: No - PSYCHIATRIC Hx Substance Use: No - SURGICAL HISTORY Hx Appendectomy: No Hx Cholecystectomy: No Hx Coronary Stent: No Other/Comment: Right breast Lumpectomy 1974 - ANESTHESIA Hx Anesthesia: Yes Hx Anesthesia Reactions: No Hx Malignant Hyperthermia: No Meds Allergies/Adverse Reactions: Allergies Allergy/AdvReac Type Severity Reaction Status Date / Time Latex, Natural Rubber Allergy Unknown RASH Verified 10/26/17 14:13 - Medications Medications: Current Medications Acetaminophen (Tylenol 325mg Tab) 975 mg PO Q8 PRN PRN Reason: Pain, Mild (1-3) Last Admin: 11/23/17 13:41 Dose: 975 mg Aspirin (Ecotrin) 81 mg PO DAILY [facility] Last Admin: 11/23/17 09:03 Dose: 81 mg Atorvastatin Calcium (Lipitor) 20 mg PO HS@2200 [facility] Epoetin Gonzalo (Procrit) 15,000 unit IV MWF [facility] Heparin Sodium (Porcine) (Heparin) 5,000 units SC Q8 [facility] PRN Reason: Protocol Last Admin: 11/23/17 13:43 Dose: 5,000 units Insulin Human Regular (Humulin R) 0 units SC ACHS [facility] PRN Reason: Protocol Last Admin: 11/23/17 12:07 Dose: Not Given Megestrol Acetate (Megace) 400 mg PO DAILY [facility] Last Admin: 11/23/17 09:03 Dose: 400 mg Metoprolol Tartrate (Lopressor) 25 mg PO Q12 [facility] Last Admin: 11/23/17 09:03 Dose: 25 mg Ondansetron HCl (Zofran Odt) 4 mg PO Q8H PRN PRN Reason: Nausea/Vomiting Oxycodone HCl (Oxycodone Immediate Release Tab) 5 mg PO Q6 PRN PRN Reason: Pain 4-10 Pantoprazole Sodium (Protonix Ec Tab) 40 mg PO DAILY [facility] Last Admin: 11/23/17 09:03 Dose: 40 mg Silver Sulfadiazine (Silvadene 1% 50 Gm) 1 applic TOP BID [facility] Last Admin: 11/23/17 09:04 Dose: 1 applic Vitamin B Complex/Vit C/Folic Acid (Nephro-Jyoti) 1 tab PO DAILY [facility] Last Admin: 11/23/17 09:03 Dose: 1 tab Results - Vital Signs Recent Vital Signs: Last Vital Signs Temp 98.2 F 11/23/17 08:00 Pulse 94 H 11/23/17 09:03 Resp 20 11/23/17 08:00 BP 143/90 11/23/17 09:03 Pulse Ox 100 11/23/17 08:00 - Labs Result Diagrams: 11/23/17 08:15 11/23/17 08:15 Labs: Laboratory Results - last 24 hr 11/22/17 11/23/17 11/23/17 21:03 07:08 08:15 WBC 9.9 RBC 3.30 L Hgb 9.7 L Hct 30.2 L MCV 91.7 MCH 29.4 MCHC 32.1 L RDW 18.5 H Plt Count 371 Sodium Potassium Chloride Carbon Dioxide Anion Gap BUN Creatinine Est GFR ( Amer) Est GFR (Non-Af Amer) POC Glucose (mg/dL) 130 H 88 Random Glucose Calcium 11/23/17 11/23/17 08:15 11:54 WBC RBC Hgb Hct MCV MCH MCHC RDW Plt Count Sodium 137 Potassium 4.2 Chloride 98 Carbon Dioxide 28 Anion Gap 15 BUN 26 H Creatinine 4.2 H Est GFR ( Amer) 13 Est GFR (Non-Af Amer) 10 POC Glucose (mg/dL) 100 Random Glucose 90 Calcium 9.4
[2017-11-23] MEDS: Epoetin Alfa 20000 UNIT/ML (RENAL DOSE) IV SCH (16:48)
[2017-11-24] MEDS: Insulin Regular 100 units/ml SC SCH ×4 (06:30→21:04)
[2017-11-24] MEDS: Pantoprazole 40 mg EC Tab PO SCH (09:14)
[2017-11-24] MEDS: Megestrol Acetate 40 mg/ml Cup PO SCH (09:14)
[2017-11-24] MEDS: Multivitamin Vitamin B Complex (Nephro-Vite) Tab PO SCH (09:15)
[2017-11-24] MEDS: Iodoform 1/2inx15ft BOT EXT SCH (09:16)
[2017-11-24] MEDS: Silver Sulfadiazine 1% CREAM (50 gm) TOP SCH ×2 (09:16→17:30)
--- NOTE | 2017-11-24 14:40 | CP.PCM.PN ---
Subjective - Date & Time of Evaluation Date of Evaluation: 11/24/17 Time of Evaluation: 09:35 - Subjective Subjective: RENAL FOLLOW UP Impression: GI bleed, ischemic colitis s/p hemicolectomy Diabetic chronic Kidney Disease (E11.22) Hypertensive Chronic Kidney Disease (I12.0) End stage renal disease (N18.6) dependence on hemodialysis (Z99.2) (MWF) via permacath Anemia (D64.9), Hyperphosphatemia (E83.39), Secondary Hyperparathyroidism (E21.1 ), HTN (I12.0) hx of CVA Plan: HD MWFContinue with Nephrovite 1 tab/day. PRBC as needed for anemia. On DEYA as epogen with HD phos binders currently on hold BP control with meds as ordered. Patient not on RAAS sony as BP tends to be low Glycemic control, Dialysis consistent diet Further work up/management as per primary team Dose meds/antibiotics (if needed) for ESRD status. Avoid fleets enema/magnesium based laxatives. she denies any shortness of breath chest pain palpitations nausea vomiting S: Seen and examined, in good spirts denies any complaints Physical Examination: General Appearance: Comfortable, in no acute respiratory distress, co-operative . Vitals reviewed and noted as below Head; Atraumatic, normocephalic ENT: no ulcers no thrush. Tongue is midline. Oropharynx: no rash or ulcers. EYES: Pupils are equal, round and reactive to light accommodation. Eye muscles and extraocular movement intact. Sclera is anicteric. Neck; supple no lymphadenopathy, no thyromegaly or bruit Lungs: Normal respiratory rate/effort. Breath sounds bilateral equal and clear Heart: Normal rate. s1s2 normal. No rub or gallop. Extremities: 1+ edema. No varicose veins Neurological: Patient is awake alert Follows commands Skin: Warm and dry. Normal turgor. No rash. Palpitation: Normal elasticity for age Abdomen: Abdomen is soft. Bowel sounds +. There is no abdominal tenderness, no guarding/rigidity or organomegaly. has left colostomy Psych: nml insight. normal affect/mood MSK: no joint tenderness or swelling. Digits and nails normal, no deformity : kidney or bladder not palpable Access: permacath Labs/imaging reviewed. Past medical history, past surgical history, family history, social history, allergy reviewed and noted as below Family Hx: no hx of CKD. Non contributory Objective - Vital Signs/Intake and Output Vital Signs (last 24 hours): Temp Pulse Resp BP Pulse Ox 98.8 F 88 20 142/85 100 11/24/17 09:19 18 09:15 11/24/17 08:00 11/24/17 09:15 11/24/17 08:00 Intake and Output: 11/24/17 11/24/17 06:59 18:59 Intake Total 100 Output Total 10 Balance 90 - Medications Medications: Current Medications Acetaminophen (Tylenol 325mg Tab) 975 mg PO Q8 PRN PRN Reason: Pain, Mild (1-3) Last Admin: 11/24/17 09:19 Dose: 975 mg Aspirin (Ecotrin) 81 mg PO DAILY [facility] Last Admin: 11/24/17 09:14 Dose: 81 mg Atorvastatin Calcium (Lipitor) 20 mg PO HS@2200 [facility] Last Admin: 11/23/17 21:48 Dose: 20 mg Epoetin Gonzalo (Procrit) 15,000 unit IV MWF [facility] Last Admin: 11/23/17 16:48 Dose: 15,000 unit Heparin Sodium (Porcine) (Heparin) 5,000 units SC Q8 [facility] PRN Reason: Protocol Last Admin: 11/24/17 14:08 Dose: 5,000 units Insulin Human Regular (Humulin R) 0 units SC ACHS [facility] PRN Reason: Protocol Last Admin: 11/24/17 12:25 Dose: Not Given Megestrol Acetate (Megace) 400 mg PO DAILY [facility] Last Admin: 11/24/17 09:14 Dose: 400 mg Metoprolol Tartrate (Lopressor) 25 mg PO Q12 [facility] Last Admin: 11/24/17 09:15 Dose: 25 mg Ondansetron HCl (Zofran Odt) 4 mg PO Q8H PRN PRN Reason: Nausea/Vomiting Oxycodone HCl (Oxycodone Immediate Release Tab) 5 mg PO Q6 PRN PRN Reason: Pain 4-10 Pantoprazole Sodium (Protonix Ec Tab) 40 mg PO DAILY [facility] Last Admin: 11/24/17 09:14 Dose: 40 mg Silver Sulfadiazine (Silvadene 1% 50 Gm) 1 applic TOP BID [facility] Last Admin: 11/24/17 09:16 Dose: 1 applic Vitamin B Complex/Vit C/Folic Acid (Nephro-Jyoti) 1 tab PO DAILY [facility] Last Admin: 11/24/17 09:15 Dose: 1 tab - Labs Labs: 11/23/17 08:15 11/23/17 08:15
--- NOTE | 2017-11-24 18:17 | CP.PCM.PN ---
Subjective - Date & Time of Evaluation Date of Evaluation: 11/24/17 Time of Evaluation: 13:00 - Subjective Subjective: no acute complaints at present, resting in bed Objective - Vital Signs/Intake and Output Vital Signs (last 24 hours): Temp Pulse Resp BP Pulse Ox 98.8 F 88 20 142/85 100 11/24/17 09:19 11/24/17 09:15 11/24/17 08:00 11/24/17 09:15 11/24/17 08:00 Intake and Output: 11/24/17 11/24/17 06:59 18:59 Intake Total 100 Output Total 10 Balance 90 - Medications Medications: Current Medications Acetaminophen (Tylenol 325mg Tab) 975 mg PO Q8 PRN PRN Reason: Pain, Mild (1-3) Last Admin: 11/24/17 09:19 Dose: 975 mg Aspirin (Ecotrin) 81 mg PO DAILY [facility] Last Admin: 11/24/17 09:14 Dose: 81 mg Atorvastatin Calcium (Lipitor) 20 mg PO HS@2200 [facility] Last Admin: 11/23/17 21:48 Dose: 20 mg Epoetin Gonzalo (Procrit) 15,000 unit IV MWF [facility] Last Admin: 11/23/17 16:48 Dose: 15,000 unit Heparin Sodium (Porcine) (Heparin) 5,000 units SC Q8 [facility] PRN Reason: Protocol Last Admin: 11/24/17 14:08 Dose: 5,000 units Insulin Human Regular (Humulin R) 0 units SC ACHS [facility] PRN Reason: Protocol Last Admin: 11/24/17 17:28 Dose: Not Given Megestrol Acetate (Megace) 400 mg PO DAILY [facility] Last Admin: 11/24/17 09:14 Dose: 400 mg Metoprolol Tartrate (Lopressor) 25 mg PO Q12 [facility] Last Admin: 11/24/17 09:15 Dose: 25 mg Ondansetron HCl (Zofran Odt) 4 mg PO Q8H PRN PRN Reason: Nausea/Vomiting Oxycodone HCl (Oxycodone Immediate Release Tab) 5 mg PO Q6 PRN PRN Reason: Pain 4-10 Pantoprazole Sodium (Protonix Ec Tab) 40 mg PO DAILY [facility] Last Admin: 11/24/17 09:14 Dose: 40 mg Silver Sulfadiazine (Silvadene 1% 50 Gm) 1 applic TOP BID [facility] Last Admin: 11/24/17 17:30 Dose: 1 applic Vitamin B Complex/Vit C/Folic Acid (Nephro-Jyoti) 1 tab PO DAILY [facility] Last Admin: 11/24/17 09:15 Dose: 1 tab - Labs Labs: 11/23/17 08:15 11/23/17 08:15 - Head Exam Head Exam: ATRAUMATIC, NORMAL INSPECTION, NORMOCEPHALIC - Eye Exam Eye Exam: EOMI, Normal appearance Pupil Exam: NORMAL ACCOMODATION, PERRL - ENT Exam ENT Exam: Mucous Membranes Moist, Normal Exam - Neck Exam Neck Exam: Full ROM, Normal Inspection - Respiratory Exam Respiratory Exam: Clear to Ausculation Bilateral, NORMAL BREATHING PATTERN - Cardiovascular Exam Cardiovascular Exam: REGULAR RHYTHM - GI/Abdominal Exam GI & Abdominal Exam: Soft, Normal Bowel Sounds - Rectal Exam Rectal Exam: NORMAL INSPECTION - Exam External exam: NORMAL EXTERNAL EXAM - Extremities Exam Extremities Exam: Full ROM, Normal Capillary Refill, Normal Inspection - Back Exam Back Exam: NORMAL INSPECTION - Neurological Exam Neurological Exam: Alert, Awake Neuro motor strength exam: Left Upper Extremity: 4, Right Upper Extremity: 4, Left Lower Extremity: 3, Right Lower Extremity: 4 - Psychiatric Exam Psychiatric exam: Normal Affect, Normal Mood - Skin Skin Exam: Normal Color Assessment and Plan (1) Asthma exacerbation Assessment & Plan: gait difficulty, plan for physical, occupational rec therapy covering for Dr Villafuerte for today Status: Acute (2) Chronic kidney disease on chronic dialysis Status: Acute (3) Colitis Status: Acute (4) ESRD (end stage renal disease) on dialysis Status: Acute (5) Gastrointestinal hemorrhage Status: Acute (6) Hemorrhage of arteriovenous fistula Status: Acute (7) Hemorrhagic shock Status: Acute
[2017-11-25] MEDS: Insulin Regular 100 units/ml SC SCH ×4 (06:30→22:06)
[2017-11-25] MEDS: Megestrol Acetate 40 mg/ml Cup PO SCH (09:00)
[2017-11-25] MEDS: Multivitamin Vitamin B Complex (Nephro-Vite) Tab PO SCH (09:00)
[2017-11-25] MEDS: Pantoprazole 40 mg EC Tab PO SCH (09:00)
[2017-11-25] MEDS: Silver Sulfadiazine 1% CREAM (50 gm) TOP SCH ×2 (09:00→17:36)
[2017-11-25] MEDS: Iodoform 1/2inx15ft BOT EXT SCH (09:30)
[2017-11-26] MEDS: Insulin Regular 100 units/ml SC SCH ×4 (06:55→21:50)
[2017-11-26] MEDS: Megestrol Acetate 40 mg/ml Cup PO SCH (08:16)
[2017-11-26] MEDS: Silver Sulfadiazine 1% CREAM (50 gm) TOP SCH ×2 (08:16→16:59)
[2017-11-26] MEDS: Pantoprazole 40 mg EC Tab PO SCH (08:17)
[2017-11-26] MEDS: Iodoform 1/2inx15ft BOT EXT SCH (08:17)
--- NOTE | 2017-11-26 09:34 | CP.PCM.PN ---
Subjective - Date & Time of Evaluation Date of Evaluation: 11/26/17 Time of Evaluation: 09:33 - Subjective Subjective: RENAL FOLLOW UP Impression: GI bleed, ischemic colitis s/p hemicolectomy Diabetic chronic Kidney Disease (E11.22) Hypertensive Chronic Kidney Disease (I12.0) End stage renal disease (N18.6) dependence on hemodialysis (Z99.2) (MWF) via permacath Anemia (D64.9), Hyperphosphatemia (E83.39), Secondary Hyperparathyroidism (E21.1 ), HTN (I12.0) hx of CVA Plan: HD MWF Continue with Nephrovite 1 tab/day. PRBC as needed for anemia. On ESAwith HD phos binders currently on hold, will recheck level BP control with meds as ordered. Patient not on RAAS sony as BP tends to be low Glycemic control, Dialysis consistent diet Further work up/management as per primary team Dose meds/antibiotics (if needed) for ESRD status. Avoid fleets enema/magnesium based laxatives. S: Seen and examined, feels ok Physical Examination: General Appearance: Comfortable, in no acute respiratory distress, co-operative . Vitals reviewed and noted as below Head; Atraumatic, normocephalic ENT: no ulcers no thrush. Tongue is midline. Oropharynx: no rash or ulcers. EYES: Pupils are equal, round and reactive to light accommodation. Eye muscles and extraocular movement intact. Sclera is anicteric. Neck; supple no lymphadenopathy, no thyromegaly or bruit Lungs: Normal respiratory rate/effort. Breath sounds bilateral equal and clear Heart: Normal rate. s1s2 normal. No rub or gallop. Extremities: 1+ edema. No varicose veins Neurological: Patient is awake alert Follows commands Skin: Warm and dry. Normal turgor. No rash. Palpitation: Normal elasticity for age Abdomen: Abdomen is soft. Bowel sounds +. There is no abdominal tenderness, no guarding/rigidity or organomegaly. has left colostomy Psych: nml insight. normal affect/mood MSK: no joint tenderness or swelling. Digits and nails normal, no deformity : kidney or bladder not palpable Access: permacath Labs/imaging reviewed. Past medical history, past surgical history, family history, social history, allergy reviewed and noted as below Family Hx: no hx of CKD. Non contributory Objective - Vital Signs/Intake and Output Vital Signs (last 24 hours): Temp Pulse Resp BP Pulse Ox 97.1 F L 74 20 136/86 100 11/26/17 07:36 11/26/17 08:17 11/26/17 07:36 11/26/17 08:17 11/26/17 07:36 Intake and Output: 11/26/17 11/26/17 06:59 18:59 Output Total 2 Balance -2 - Medications Medications: Current Medications Acetaminophen (Tylenol 325mg Tab) 975 mg PO Q8 PRN PRN Reason: Pain, Mild (1-3) Last Admin: 11/24/17 09:19 Dose: 975 mg Aspirin (Ecotrin) 81 mg PO DAILY [facility] Last Admin: 11/26/17 08:16 Dose: 81 mg Atorvastatin Calcium (Lipitor) 20 mg PO HS@2200 [facility] Last Admin: 11/25/17 22:07 Dose: 20 mg Epoetin Gonzalo (Procrit) 15,000 unit IV MWF [facility] Last Admin: 11/23/17 16:48 Dose: 15,000 unit Heparin Sodium (Porcine) (Heparin) 5,000 units SC Q8 [facility] PRN Reason: Protocol Last Admin: 11/26/17 06:32 Dose: 5,000 units Insulin Human Regular (Humulin R) 0 units SC ACHS [facility] PRN Reason: Protocol Last Admin: 11/26/17 06:55 Dose: Not Given Megestrol Acetate (Megace) 400 mg PO DAILY [facility] Last Admin: 11/26/17 08:16 Dose: 400 mg Metoprolol Tartrate (Lopressor) 25 mg PO Q12 [facility] Last Admin: 11/26/17 08:17 Dose: 25 mg Ondansetron HCl (Zofran Odt) 4 mg PO Q8H PRN PRN Reason: Nausea/Vomiting Oxycodone HCl (Oxycodone Immediate Release Tab) 5 mg PO Q6 PRN PRN Reason: Pain 4-10 Pantoprazole Sodium (Protonix Ec Tab) 40 mg PO DAILY [facility] Last Admin: 11/26/17 08:17 Dose: 40 mg Silver Sulfadiazine (Silvadene 1% 50 Gm) 1 applic TOP BID [facility] Last Admin: 11/26/17 08:16 Dose: 1 applic Vitamin B Complex/Vit C/Folic Acid (Nephro-Jyoti) 1 tab PO DAILY [facility] Last Admin: 11/25/17 09:00 Dose: 1 tab - Labs Labs: 11/23/17 08:15 11/23/17 08:15
[2017-11-26] MEDS: Multivitamin Vitamin B Complex (Nephro-Vite) Tab PO SCH (11:22)
--- NOTE | 2017-11-26 14:40 | CP.PCM.PN ---
Subjective - Date & Time of Evaluation Date of Evaluation: 11/26/17 Time of Evaluation: 14:39 - Subjective Subjective: pt doing well no complaints at this time denies cp sob n/v/c/d hd stable nad Objective - Vital Signs/Intake and Output Vital Signs (last 24 hours): Temp Pulse Resp BP Pulse Ox 97.1 F L 74 20 130/70 99 11/26/17 07:36 11/26/17 10:30 11/26/17 07:36 11/26/17 10:30 11/26/17 10:30 Intake and Output: 11/26/17 11/26/17 06:59 18:59 Output Total 2 Balance -2 - Medications Medications: Current Medications Acetaminophen (Tylenol 325mg Tab) 975 mg PO Q8 PRN PRN Reason: Pain, Mild (1-3) Last Admin: 11/24/17 09:19 Dose: 975 mg Aspirin (Ecotrin) 81 mg PO DAILY [facility] Last Admin: 11/26/17 08:16 Dose: 81 mg Atorvastatin Calcium (Lipitor) 20 mg PO HS@2200 [facility] Last Admin: 11/25/17 22:07 Dose: 20 mg Epoetin Gonzalo (Procrit) 15,000 unit IV MWF [facility] Last Admin: 11/23/17 16:48 Dose: 15,000 unit Heparin Sodium (Porcine) (Heparin) 5,000 units SC Q8 [facility] PRN Reason: Protocol Last Admin: 11/26/17 14:02 Dose: 5,000 units Insulin Human Regular (Humulin R) 0 units SC ACHS [facility] PRN Reason: Protocol Last Admin: 11/26/17 11:47 Dose: Not Given Megestrol Acetate (Megace) 400 mg PO DAILY [facility] Last Admin: 11/26/17 08:16 Dose: 400 mg Metoprolol Tartrate (Lopressor) 25 mg PO Q12 [facility] Last Admin: 11/26/17 08:17 Dose: 25 mg Ondansetron HCl (Zofran Odt) 4 mg PO Q8H PRN PRN Reason: Nausea/Vomiting Oxycodone HCl (Oxycodone Immediate Release Tab) 5 mg PO Q6 PRN PRN Reason: Pain 4-10 Pantoprazole Sodium (Protonix Ec Tab) 40 mg PO DAILY [facility] Last Admin: 11/26/17 08:17 Dose: 40 mg Silver Sulfadiazine (Silvadene 1% 50 Gm) 1 applic TOP BID [facility] Last Admin: 11/26/17 08:16 Dose: 1 applic Vitamin B Complex/Vit C/Folic Acid (Nephro-Jyoti) 1 tab PO DAILY [facility] Last Admin: 11/26/17 11:22 Dose: 1 tab - Labs Labs: 11/23/17 08:15 11/23/17 08:15 - Head Exam Additional comments: Vitals Reviewed GEN: WDWN, alert, cooperative HEENT: NCAT, PERRL, EOMI HEART: RRR, +S1S2, NO MRG LUNG: CTAB, NO WRR ABD: soft, NT, ND, No HSM, No masses EXT: normal pedal pulses, normal capillary refill NEURO: awake, alert SKIN: warm, dry PSYCH: normal mood, normal affect Assessment and Plan - Assessment and Plan (Free Text) Plan: 67 yo female with multiple medical problems like ESRD on dialysis,HTN, obesity , history of old CVA in 2011, atrial fibrillation,with history of recent CVA on right MCA distribution was initially admitted to [facility] where she developed GI bleed with hemorrhagic shock and severe ischemic colitis diagnosed with colonoscopy. She also had a cardiac arrest and respiratory failure requiring intubation . After improving she was transferred to acute rehab for physical therapy where she continued to have some episodes of GI bleed. On 11/04 she started to have worsening of rectal bleed , with blood clots per rectum hypotension, fever Tmax 102 and some lower abdominal tenderness. Full septic panel was ordered , Cipro and Flagyl given, IVF bolus started. Patient was then admitted to ICU with diagnosis of hypovolemic shock and GI bleed and rule out sepsis. Her colonoscopy performed at [facility] had shown: diffuse severe inflammation with ulcerations in the entire colon, severe ischemic colitis mucosal ulcerations up to 40cm dinorah. GI, surgery and ID consulted Underwent Left Colon resection with ileostomy on 11/09. Transfused total 7 unit PRBC. Hemodynamically stable, iliostomy is working and surgical wound is healing. 1. s/p Hypovolemic shock secondary to GI bleed-- resolved off Levophed drip since 11/05 s/p 7 unit PRBC transfusion received TPN from 11/11 - 11/15 diet advanced and tolerating In acute rehab for PT/OT 2. Recurrent lower GI bleed due to Ischemic colitis s/p total 7 unit PRBC transfusion with last unit 2 days ago. Hgb today 10 s/p left colon resection with ileostomy 11/09 Oxycodone PRN for pain stoma with good output . Continue renal diet Promote ambulation and out of bed to chair off TPN removed TLC from right groin and placed RUE PICC line 11/16 Wound care as per surgery Received total 10 days of empiric antibiotics with Cipro and flagyl 5 days and Zosyn 5 days 3. Acute on chronic anemia-stable GI blood loss on top of chronic kidney disease anemia s/p 7 unit PRBC transfusion HG 10 today continue Epogen 4. History of recent cardiac arrest/respiratory arrest 5. ESRD on Dialysis MWF Nephro consulted continue HD as scheduled Had HD 11/21 6. History of R CVA 10/24/17 on ASA and Statin Continue PT 7. Paroxysmal Afib patient is in and out SR and afib on monitor, rate controlled on metoprolol no therapeutic anticoag due to GI bleed on ASA 8. DM ruled out Hgb A1c 6 accuchecks and insulin coverage 9. DVT prophylaxis SCDs Hold heparin for now
[2017-11-26] MEDS: Epoetin Alfa 20000 UNIT/ML (RENAL DOSE) IV SCH (17:01)
[2017-11-26 21:26] LABS: HEPATITIS B SURFACE AG Negative (NEGATIVE)
[2017-11-26 21:32] LABS: HEPATITIS A IGM NEGATIVE (NEGATIVE); HEPATITIS B CORE AB NEGATIVE (NEGATIVE)
[2017-11-26 21:43] LABS: HEPATITIS C ANTIBODY NEGATIVE (NEGATIVE)
[2017-11-27] MEDS: Insulin Regular 100 units/ml SC SCH ×4 (06:37→21:03)
[2017-11-27] MEDS: Multivitamin Vitamin B Complex (Nephro-Vite) Tab PO SCH (08:10)
[2017-11-27] MEDS: Megestrol Acetate 40 mg/ml Cup PO SCH (08:10)
[2017-11-27] MEDS: Pantoprazole 40 mg EC Tab PO SCH (08:11)
[2017-11-27] MEDS: Iodoform 1/2inx15ft BOT EXT SCH (08:12)
[2017-11-27] MEDS: Silver Sulfadiazine 1% CREAM (50 gm) TOP SCH ×2 (08:12→17:31)
--- NOTE | 2017-11-27 13:14 | PSY.TMCNF ---
Nursing - Vital Signs Vital Signs (Last 8 hours): Vital Signs 11/27/17 11/27/17 11/27/17 08:10 08:14 09:00 Temperature 97.3 F L 97.3 F L Pulse Rate 90 90 89 Respiratory 22 22 Rate Blood Pressure 144/84 144/84 144/84 O2 Sat by Pulse 99 Oximetry 11/27/17 10:16 Temperature Pulse Rate 89 Respiratory Rate Blood Pressure O2 Sat by Pulse 97 Oximetry Pain: 0 - Precautions: Precautions: Fall Prevention, Cardiac/Pulmonary, Pressure Ulcer - Medications/Other Issues Comment: Low therapy motivation, (+) pending Psychology consult. - Consults Comment: Dr. Villafuerte, Dr. Sung - Skin Incision Site: Mid-abdominal I/L with tension sutures Drainage: Serosanguineous Dressing Status: Clean, Dry, Intact Incision: Sutures Intact, Dehiscence Incision Line Treatment: Mid abdomen incision line with tension sutures intact. (+) dehiscence on lowert portion of incision line. Cleansed with NSS , packed gaped areas with Iodoform and covered with dry dressing. - Toileting Toileting: Dependent - Bladder Management Bladder Pattern: Normal Voiding Method: Bedpan Bladder Management: Dependent Frequency of Accidents: >5 - Bowel Management Bowel Pattern: Fecal Management System Bowel Management: Dependent Frequency of Accidents: 0 - Transfers Transfers: Dependent - ADL's ADL's: Dependent - Patient/Family Teaching Comments: Care post CVA and safety precautions - Goals/Time Frame Comments: Per multidisciplinary care plan and goals - Provider Provider: Angie MONROEN RN CRRN Physical Therapy - Bed Mobility Bed Mobility: Dependent - Transfers Wheelchair to Mat: Dependent Sit to Stand: Dependent - Ambulation Assistive Devices: N/A - Stair Negotiation Stairs: Level of Assistance: Not Tested - Standing Balance Static Stand: Unable to perform Dynamic Stand: Unable to assess/perform - Pain Management Techniques: Position Change Comment: pain in abdominal region - Insight/Carryover Insight/Carryover: Good - Patient/Family Education Comment: Pt education for increased safety awareness and proper techniques during functional mobility training. Deep breathing exercises and BLE ther ex to perform in room - Assessment/Plan Assessment: Pt is actively participating in PT tx sessions focusing on BLE strenthening exercises, balance and endurance activities, and functional mobility training. Pt presents with significant deconditioning and requires max/ total A for bed mobility and transfers. Pt is motivated throughout sessions and will continue to benefit from skilled PT interventions to address deficits, reduce fall risk, and maximize functional independence. - Goals Timeframe: 4 weeks Goals: USP goals: Sit < > supine with supervision. Sit < > stand with RW and supervision. Pt will ambulate 100 ft with RW and supervision - Provider Therapist: tito License Number: [id number] Occupational Therapy - Arousal/Attention/Orientation Patient Orientation: Person, Place - ADL/IADL Self Feeding: Supervision, Verbal Cues, Set-up Help Grooming: Verbal Cues, Set-up Help, Minimal Assistance Dressing-Upper Extremity: Verbal Cues, Set-up Help, Maximum Assistance, Dependent Dressing-Lower Extremity: Dependent Comment: -limited by pain in incisional site, overall weakness, severe deconditioning, + fear/anxiety - Sitting Balance Static Sitting: Contact Guard Assist Dynamic Sitting: Reaches across midline, Reaches out of base of support, Reaches within base of support, Moderate Assistance Comment: seated at edge of bed - Transfers Wheelchair to Bed Transfers: Verbal Cues, Set-up Help, Maximum Assistance, Dependent Comment: -commode/toilet transfers not assessed since not safe --HIGH RISK FOR FALLS. --transfers/lateral, squat pivot--unsuccessful pt's knees jazz almost feel from bed to chair--- total assist with high fall risk--total assist( Patient DOES NOT ASSIST). -slideboard transfers: max assist of 2 persosn w/c <- >bed towards R side--strong side - Wheelchair Management Level of Assistance: Dependent - Upper Extremity Status Right Upper Extremity Comment: PROM is WFLs. AROM limited in shoulder--strength 3-/5 to 3/5 : Left Upper Extremity Comment: PROM: WFLS. AROm limited in shoulder, strength 3-/ 5 in L shoulder and 3/5 distally - Pain Alleviating Techniques: Position Change Comment: pain in abdominal region - Insight/Carryover Insight/Carryover: Good - Patient/Family Education Comment: Pt education for increased safety awareness and proper techniques during functional mobility training. Deep breathing exercises and BLE ther ex to perform in room - Assessment/Plan Assessment: Pt is actively participating in PT tx sessions focusing on BLE strenthening exercises, balance and endurance activities, and functional mobility training. Pt presents with significant deconditioning and requires max/ total A for bed mobility and transfers. Pt is motivated throughout sessions and will continue to benefit from skilled PT interventions to address deficits, reduce fall risk, and maximize functional independence. - Goals Timeframe: 4 weeks Goals: engineering officer goals: Sit < > supine with supervision. Sit < > stand with RW and supervision. Pt will ambulate 100 ft with RW and supervision - Provider Therapist: CARLENE Victor/L License Number: [id number] Speech Therapy - Consult Information Patient on Program: Yes Medical Diagnosis: CVA Treatment Diagnosis: mild-moderate cognitive deficits - Assessment Problem Solving Impairment: Mild Memory Impairment: Moderate - Plan Assessment: Pt is actively participating in PT tx sessions focusing on BLE strenthening exercises, balance and endurance activities, and functional mobility training. Pt presents with significant deconditioning and requires max/ total A for bed mobility and transfers. Pt is motivated throughout sessions and will continue to benefit from skilled PT interventions to address deficits, reduce fall risk, and maximize functional independence. - Provider Therapist: Toshia Carlos License Number: [id number] Recreational Therapy - Participation Participation: Participates in Individual and/or Group Sessions, Monitors His/ Her Own Leisure Time - Attendance Attendance: Daily - Activities Leisure Activities: Television - Socialization Level of Socialization: Initiates/interacts freely with care givers and peer - Assessment Assessment/Plan: Pt is actively participating in PT tx sessions focusing on BLE strenthening exercises, balance and endurance activities, and functional mobility training. Pt presents with significant deconditioning and requires max/ total A for bed mobility and transfers. Pt is motivated throughout sessions and will continue to benefit from skilled PT interventions to address deficits, reduce fall risk, and maximize functional independence. - Provider Therapist: Erin Giles, ONLINE USER EXPERIENCE STRATEGIST #[id number] Nutrition - Current Diet Current Diet/ Supplement/ Feedings: Moderate consistent CHO heart healthy renal dialysis diet Nepro 8 ounces 2 per day - Appetite Percent Meal Consumed: 50-74% - Comments Comments: Care post CVA and safety precautions - Assessment/Goals/Time Frame Assessment/Goals/Time Frame: Low therapy motivation, (+) pending Psychology consult. - Provider Provider: Becky Curry RD Rehabilitation Plan - Treatment Plan Treatment Plan: Physical Therapy, Occupational Therapy, Speech, Dietary, Patient /Family Education (2 flights) - Discharge Plan Estimated Date of Discharge: 12/16/17 Discharge to: Subacute
--- NOTE | 2017-11-27 13:26 | CP.PCM.PN ---
Subjective - Date & Time of Evaluation Date of Evaluation: 11/27/17 Time of Evaluation: 13:24 - Subjective Subjective: Patient sitting up in the chair Patient awake and conscious Patient feeling ok with generalized weakness but it is getting better. Objective - Vital Signs/Intake and Output Vital Signs (last 24 hours): Temp Pulse Resp BP Pulse Ox 97.3 F L 89 22 144/84 97 11/27/17 09:00 11/27/17 10:16 11/27/17 09:00 11/27/17 09:00 11/27/17 10:16 - Medications Medications: Current Medications Acetaminophen (Tylenol 325mg Tab) 975 mg PO Q8 PRN PRN Reason: Pain, Mild (1-3) Last Admin: 11/24/17 09:19 Dose: 975 mg Aspirin (Ecotrin) 81 mg PO DAILY [facility] Last Admin: 11/27/17 08:11 Dose: 81 mg Atorvastatin Calcium (Lipitor) 20 mg PO HS@2200 [facility] Last Admin: 11/26/17 21:50 Dose: 20 mg Epoetin Gonzalo (Procrit) 15,000 unit IV MWF [facility] Last Admin: 11/26/17 17:01 Dose: 15,000 unit Heparin Sodium (Porcine) (Heparin) 5,000 units SC Q8 [facility] PRN Reason: Protocol Last Admin: 11/27/17 13:08 Dose: 5,000 units Insulin Human Regular (Humulin R) 0 units SC ACHS [facility] PRN Reason: Protocol Last Admin: 11/27/17 12:38 Dose: Not Given Megestrol Acetate (Megace) 400 mg PO DAILY [facility] Last Admin: 11/27/17 08:10 Dose: 400 mg Metoprolol Tartrate (Lopressor) 25 mg PO Q12 [facility] Last Admin: 11/27/17 08:10 Dose: 25 mg Ondansetron HCl (Zofran Odt) 4 mg PO Q8H PRN PRN Reason: Nausea/Vomiting Oxycodone HCl (Oxycodone Immediate Release Tab) 5 mg PO Q6 PRN PRN Reason: Pain 4-10 Pantoprazole Sodium (Protonix Ec Tab) 40 mg PO DAILY [facility] Last Admin: 11/27/17 08:11 Dose: 40 mg Silver Sulfadiazine (Silvadene 1% 50 Gm) 1 applic TOP BID [facility] Last Admin: 11/27/17 08:12 Dose: 1 applic Vitamin B Complex/Vit C/Folic Acid (Nephro-Jyoti) 1 tab PO DAILY [facility] Last Admin: 11/27/17 08:10 Dose: 1 tab - Labs Labs: 11/23/17 08:15 11/23/17 08:15 - Constitutional Appears: No Acute Distress - ENT Exam ENT Exam: Mucous Membranes Moist - Neck Exam Neck Exam: absent: Lymphadenopathy - Respiratory Exam Respiratory Exam: absent: Chest Wall Tenderness, Rales - Cardiovascular Exam Cardiovascular Exam: absent: JVD, Rubs - GI/Abdominal Exam GI & Abdominal Exam: Soft - Extremities Exam Extremities Exam: absent: Calf Tenderness - Back Exam Back Exam: absent: CVA tenderness (L) - Neurological Exam Neurological Exam: Alert - Psychiatric Exam Psychiatric exam: Normal Affect - Skin Skin Exam: absent: Cyanosis Assessment and Plan (1) Chronic kidney disease on chronic dialysis Assessment & Plan: Impression: GI bleed, ischemic colitis s/p hemicolectomy Diabetic chronic Kidney Disease (E11.22) Hypertensive Chronic Kidney Disease (I12.0) End stage renal disease (N18.6) dependence on hemodialysis (Z99.2) (MWF) via permacath Anemia (D64.9), Hyperphosphatemia (E83.39), Secondary Hyperparathyroidism (E21.1 ), HTN (I12.0) hx of CVA Plan: HD MWF Continue with Nephrovite 1 tab/day. PRBC as needed for anemia. On ESAwith HD phos binders currently on hold, will recheck level BP control with meds as ordered. Patient not on RAAS sony as BP tends to be low Glycemic control, Dialysis consistent diet Further work up/management as per primary team Dose meds/antibiotics (if needed) for ESRD status. Avoid fleets enema/magnesium based laxatives. patient scheduled for hemodialysis for tomorrow . Status: Acute (2) Gastrointestinal hemorrhage Status: Acute
--- NOTE | 2017-11-27 14:05 | CP.PCM.PN ---
Subjective - Date & Time of Evaluation Date of Evaluation: 11/27/17 Time of Evaluation: 14:04 - Subjective Subjective: Patient seen in therapy denies pain alert and cooperative she is trying hard but has multiple medical issues that are slowing down her progress Colostomy in place continue current care Objective - Vital Signs/Intake and Output Vital Signs (last 24 hours): Temp Pulse Resp BP Pulse Ox 97.3 F L 89 22 144/84 97 11/27/17 09:00 11/27/17 10:16 11/27/17 09:00 11/27/17 09:00 11/27/17 10:16 - Medications Medications: Current Medications Acetaminophen (Tylenol 325mg Tab) 975 mg PO Q8 PRN PRN Reason: Pain, Mild (1-3) Last Admin: 11/24/17 09:19 Dose: 975 mg Aspirin (Ecotrin) 81 mg PO DAILY [facility] Last Admin: 11/27/17 08:11 Dose: 81 mg Atorvastatin Calcium (Lipitor) 20 mg PO HS@2200 [facility] Last Admin: 11/26/17 21:50 Dose: 20 mg Epoetin Gonzalo (Procrit) 15,000 unit IV MWF [facility] Last Admin: 11/26/17 17:01 Dose: 15,000 unit Heparin Sodium (Porcine) (Heparin) 5,000 units SC Q8 [facility] PRN Reason: Protocol Last Admin: 11/27/17 13:08 Dose: 5,000 units Insulin Human Regular (Humulin R) 0 units SC ACHS [facility] PRN Reason: Protocol Last Admin: 11/27/17 12:38 Dose: Not Given Megestrol Acetate (Megace) 400 mg PO DAILY [facility] Last Admin: 11/27/17 08:10 Dose: 400 mg Metoprolol Tartrate (Lopressor) 25 mg PO Q12 [facility] Last Admin: 11/27/17 08:10 Dose: 25 mg Ondansetron HCl (Zofran Odt) 4 mg PO Q8H PRN PRN Reason: Nausea/Vomiting Oxycodone HCl (Oxycodone Immediate Release Tab) 5 mg PO Q6 PRN PRN Reason: Pain 4-10 Pantoprazole Sodium (Protonix Ec Tab) 40 mg PO DAILY [facility] Last Admin: 11/27/17 08:11 Dose: 40 mg Silver Sulfadiazine (Silvadene 1% 50 Gm) 1 applic TOP BID [facility] Last Admin: 11/27/17 08:12 Dose: 1 applic Vitamin B Complex/Vit C/Folic Acid (Nephro-Jyoti) 1 tab PO DAILY [facility] Last Admin: 11/27/17 08:10 Dose: 1 tab - Labs Labs: 11/23/17 08:15 11/23/17 08:15
[2017-11-28] MEDS: Insulin Regular 100 units/ml SC SCH ×4 (06:30→21:00)
[2017-11-28] MEDS: Multivitamin Vitamin B Complex (Nephro-Vite) Tab PO SCH (09:21)
[2017-11-28] MEDS: Megestrol Acetate 40 mg/ml Cup PO SCH (09:21)
[2017-11-28] MEDS: Iodoform 1/2inx15ft BOT EXT SCH (09:21)
[2017-11-28] MEDS: Silver Sulfadiazine 1% CREAM (50 gm) TOP SCH ×2 (09:23→16:29)
[2017-11-28] MEDS: Pantoprazole 40 mg EC Tab PO SCH (09:23)
[2017-11-28] MEDS: oxyCODONE 5 mg Immediate Release Tab PO PRN (13:03)
--- NOTE | 2017-11-28 14:18 | CP.PCM.PN ---
Subjective - Date & Time of Evaluation Date of Evaluation: 11/28/17 Time of Evaluation: 14:16 - Subjective Subjective: pt doing well, tolerating PT well no complaints hd stable nad Objective - Vital Signs/Intake and Output Vital Signs (last 24 hours): Temp Pulse Resp BP Pulse Ox 97.7 F 71 20 135/69 97 11/27/17 20:25 11/28/17 10:00 11/27/17 20:25 11/28/17 10:00 11/27/17 20:25 Vitals Reviewed GEN: WDWN, alert, cooperative HEENT: NCAT, PERRL, EOMI HEART: RRR, +S1S2, NO MRG LUNG: CTAB, NO WRR ABD: soft, NT, ND, No HSM, No masses EXT: normal pedal pulses, normal capillary refill NEURO: awake, alert SKIN: warm, dry PSYCH: normal mood, normal affect Intake and Output: 11/28/17 11/28/17 06:59 18:59 Intake Total 200 Output Total 15 Balance 185 - Medications Medications: Current Medications Acetaminophen (Tylenol 325mg Tab) 975 mg PO Q8 PRN PRN Reason: Pain, Mild (1-3) Last Admin: 11/28/17 12:00 Dose: 975 mg Aspirin (Ecotrin) 81 mg PO DAILY [facility] Last Admin: 11/28/17 09:23 Dose: 81 mg Atorvastatin Calcium (Lipitor) 20 mg PO HS@2200 [facility] Last Admin: 11/27/17 21:49 Dose: 20 mg Epoetin Gonzalo (Procrit) 15,000 unit IV MWF [facility] Last Admin: 11/26/17 17:01 Dose: 15,000 unit Heparin Sodium (Porcine) (Heparin) 5,000 units SC Q8 [facility] PRN Reason: Protocol Last Admin: 11/28/17 13:02 Dose: 5,000 units Insulin Human Regular (Humulin R) 0 units SC ACHS [facility] PRN Reason: Protocol Last Admin: 11/28/17 12:17 Dose: Not Given Megestrol Acetate (Megace) 400 mg PO DAILY [facility] Last Admin: 11/28/17 09:21 Dose: 400 mg Metoprolol Tartrate (Lopressor) 25 mg PO Q12 [facility] Last Admin: 11/28/17 09:21 Dose: 25 mg Ondansetron HCl (Zofran Odt) 4 mg PO Q8H PRN PRN Reason: Nausea/Vomiting Oxycodone HCl (Oxycodone Immediate Release Tab) 5 mg PO Q6 PRN PRN Reason: Pain 4-10 Last Admin: 11/28/17 13:03 Dose: 5 mg Pantoprazole Sodium (Protonix Ec Tab) 40 mg PO DAILY [facility] Last Admin: 11/28/17 09:23 Dose: 40 mg Silver Sulfadiazine (Silvadene 1% 50 Gm) 1 applic TOP BID [facility] Last Admin: 11/28/17 09:23 Dose: 1 applic Vitamin B Complex/Vit C/Folic Acid (Nephro-Jyoti) 1 tab PO DAILY [facility] Last Admin: 11/28/17 09:21 Dose: 1 tab - Labs Labs: 11/23/17 08:15 11/23/17 08:15 Assessment and Plan - Assessment and Plan (Free Text) Plan: 67 yo female with multiple medical problems like ESRD on dialysis,HTN, obesity , history of old CVA in 2011, atrial fibrillation,with history of recent CVA on right MCA distribution was initially admitted to [facility] where she developed GI bleed with hemorrhagic shock and severe ischemic colitis diagnosed with colonoscopy. She also had a cardiac arrest and respiratory failure requiring intubation . After improving she was transferred to acute rehab for physical therapy where she continued to have some episodes of GI bleed. On 11/04 she started to have worsening of rectal bleed , with blood clots per rectum hypotension, fever Tmax 102 and some lower abdominal tenderness. Full septic panel was ordered , Cipro and Flagyl given, IVF bolus started. Patient was then admitted to ICU with diagnosis of hypovolemic shock and GI bleed and rule out sepsis. Her colonoscopy performed at [facility] had shown: diffuse severe inflammation with ulcerations in the entire colon, severe ischemic colitis mucosal ulcerations up to 40cm dinorah. GI, surgery and ID consulted Underwent Left Colon resection with ileostomy on 11/09. Transfused total 7 unit PRBC. Hemodynamically stable, iliostomy is working and surgical wound is healing. 1. s/p Hypovolemic shock secondary to GI bleed-- resolved off Levophed drip since 11/05 s/p 7 unit PRBC transfusion received TPN from 11/11 - 11/15 diet advanced and tolerating In acute rehab for PT/OT 2. Recurrent lower GI bleed due to Ischemic colitis s/p total 7 unit PRBC transfusion with last unit 2 days ago. Hgb today 10 s/p left colon resection with ileostomy 11/09 Oxycodone PRN for pain stoma with good output . Continue renal diet Promote ambulation and out of bed to chair off TPN removed TLC from right groin and placed RUE PICC line 11/16 Wound care as per surgery Received total 10 days of empiric antibiotics with Cipro and flagyl 5 days and Zosyn 5 days 3. Acute on chronic anemia-stable GI blood loss on top of chronic kidney disease anemia s/p 7 unit PRBC transfusion HG 10 today continue Epogen 4. History of recent cardiac arrest/respiratory arrest 5. ESRD on Dialysis MWF Nephro consulted continue HD as scheduled Had HD 11/21 6. History of R CVA 10/24/17 on ASA and Statin Continue PT 7. Paroxysmal Afib patient is in and out SR and afib on monitor, rate controlled on metoprolol no therapeutic anticoag due to GI bleed on ASA 8. DM ruled out Hgb A1c 6 accuchecks and insulin coverage 9. DVT prophylaxis SCDs Hold heparin for now
--- NOTE | 2017-11-28 15:39 | CP.PCM.PN ---
Subjective - Date & Time of Evaluation Date of Evaluation: 11/28/17 Time of Evaluation: 15:37 - Subjective Subjective: Dialysis note Patient is being dialyzed Just started shortly. Vital signs stable No chest pain no shortness of breath Patient is awake Objective - Vital Signs/Intake and Output Vital Signs (last 24 hours): Temp Pulse Resp BP Pulse Ox 97.7 F 71 20 135/69 97 11/27/17 20:25 11/28/17 10:00 11/27/17 20:25 11/28/17 10:00 11/27/17 20:25 Intake and Output: 11/28/17 11/28/17 06:59 18:59 Intake Total 200 Output Total 15 Balance 185 - Medications Medications: Current Medications Acetaminophen (Tylenol 325mg Tab) 975 mg PO Q8 PRN PRN Reason: Pain, Mild (1-3) Last Admin: 11/28/17 12:00 Dose: 975 mg Aspirin (Ecotrin) 81 mg PO DAILY [facility] Last Admin: 11/28/17 09:23 Dose: 81 mg Atorvastatin Calcium (Lipitor) 20 mg PO HS@2200 [facility] Last Admin: 11/27/17 21:49 Dose: 20 mg Epoetin Gonzalo (Procrit) 15,000 unit IV MWF [facility] Last Admin: 11/26/17 17:01 Dose: 15,000 unit Heparin Sodium (Porcine) (Heparin) 5,000 units SC Q8 [facility] PRN Reason: Protocol Last Admin: 11/28/17 13:02 Dose: 5,000 units Insulin Human Regular (Humulin R) 0 units SC ACHS [facility] PRN Reason: Protocol Last Admin: 11/28/17 12:17 Dose: Not Given Megestrol Acetate (Megace) 400 mg PO DAILY [facility] Last Admin: 11/28/17 09:21 Dose: 400 mg Metoprolol Tartrate (Lopressor) 25 mg PO Q12 [facility] Last Admin: 11/28/17 09:21 Dose: 25 mg Ondansetron HCl (Zofran Odt) 4 mg PO Q8H PRN PRN Reason: Nausea/Vomiting Oxycodone HCl (Oxycodone Immediate Release Tab) 5 mg PO Q6 PRN PRN Reason: Pain 4-10 Last Admin: 11/28/17 13:03 Dose: 5 mg Pantoprazole Sodium (Protonix Ec Tab) 40 mg PO DAILY [facility] Last Admin: 11/28/17 09:23 Dose: 40 mg Silver Sulfadiazine (Silvadene 1% 50 Gm) 1 applic TOP BID [facility] Last Admin: 11/28/17 09:23 Dose: 1 applic Vitamin B Complex/Vit C/Folic Acid (Nephro-Jyoti) 1 tab PO DAILY [facility] Last Admin: 11/28/17 09:21 Dose: 1 tab - Labs Labs: 11/23/17 08:15 11/23/17 08:15 - Constitutional Appears: No Acute Distress - ENT Exam ENT Exam: Mucous Membranes Moist - Neck Exam Neck Exam: absent: Lymphadenopathy - Respiratory Exam Respiratory Exam: NORMAL BREATHING PATTERN. absent: Chest Wall Tenderness, Rales - Cardiovascular Exam Cardiovascular Exam: absent: Gallop, JVD, Rubs - GI/Abdominal Exam GI & Abdominal Exam: Soft, Normal Bowel Sounds - Extremities Exam Extremities Exam: absent: Calf Tenderness - Back Exam Back Exam: absent: CVA tenderness (L), CVA tenderness (R) - Neurological Exam Neurological Exam: Alert - Psychiatric Exam Psychiatric exam: Normal Affect - Skin Skin Exam: absent: Cyanosis Assessment and Plan (1) Chronic kidney disease on chronic dialysis Assessment & Plan: Patient receiving dialysis now. Patient tolerating hemodialysis Vital signs stable Dialysis discussed with the dialysis nurse at the bedside. ultrafiltration about 1500 mL as tolerated Sodium bath 138 mEq Potassium bath 2 milliequivalent The rest of the medical problem as noted GI bleed, ischemic colitis s/p hemicolectomy Diabetic chronic Kidney Disease (E11.22) Hypertensive Chronic Kidney Disease (I12.0) End stage renal disease (N18.6) dependence on hemodialysis (Z99.2) (MWF) via permacath Anemia (D64.9), Hyperphosphatemia (E83.39), Secondary Hyperparathyroidism (E21.1 ), HTN (I12.0) hx of CVA Status: Acute (2) Gastrointestinal hemorrhage Status: Acute
[2017-11-28] MEDS: Epoetin Alfa 20000 UNIT/ML (RENAL DOSE) IV SCH (16:27)
[2017-11-29] MEDS: Insulin Regular 100 units/ml SC SCH ×4 (06:30→21:55)
[2017-11-29] MEDS: Iodoform 1/2inx15ft BOT EXT SCH (09:37)
[2017-11-29] MEDS: Pantoprazole 40 mg EC Tab PO SCH (09:37)
[2017-11-29] MEDS: Multivitamin Vitamin B Complex (Nephro-Vite) Tab PO SCH (09:37)
[2017-11-29] MEDS: Silver Sulfadiazine 1% CREAM (50 gm) TOP SCH ×2 (09:38→17:11)
[2017-11-29] MEDS: Megestrol Acetate 40 mg/ml Cup PO SCH (09:38)
--- NOTE | 2017-11-29 10:02 | CP.PCM.PN ---
Subjective - Date & Time of Evaluation Date of Evaluation: 11/29/17 Time of Evaluation: 10:00 - Subjective Subjective: Patient stable Patient is receiving physiotherapy. Vital signs stable. Patient completed hemodialysis yesterday Objective - Vital Signs/Intake and Output Vital Signs (last 24 hours): Temp Pulse Resp BP Pulse Ox 97.0 F L 82 19 108/59 L 96 11/29/17 08:39 11/29/17 09:37 11/29/17 08:39 11/29/17 09:37 11/29/17 08:39 Intake and Output: 11/29/17 11/29/17 06:59 18:59 Intake Total 200 Output Total 5 Balance 195 - Medications Medications: Current Medications Acetaminophen (Tylenol 325mg Tab) 975 mg PO Q8 PRN PRN Reason: Pain, Mild (1-3) Last Admin: 11/28/17 12:00 Dose: 975 mg Aspirin (Ecotrin) 81 mg PO DAILY [facility] Last Admin: 11/29/17 09:39 Dose: 81 mg Atorvastatin Calcium (Lipitor) 20 mg PO HS@2200 [facility] Last Admin: 11/28/17 21:08 Dose: 20 mg Epoetin Gonzalo (Procrit) 15,000 unit IV MWF [facility] Last Admin: 11/28/17 16:27 Dose: 15,000 unit Heparin Sodium (Porcine) (Heparin) 5,000 units SC Q8 [facility] PRN Reason: Protocol Last Admin: 11/29/17 06:01 Dose: 5,000 units Insulin Human Regular (Humulin R) 0 units SC ACHS [facility] PRN Reason: Protocol Last Admin: 11/29/17 06:30 Dose: Not Given Megestrol Acetate (Megace) 400 mg PO DAILY [facility] Last Admin: 11/29/17 09:38 Dose: 400 mg Metoprolol Tartrate (Lopressor) 25 mg PO Q12 [facility] Last Admin: 11/29/17 09:37 Dose: 25 mg Ondansetron HCl (Zofran Odt) 4 mg PO Q8H PRN PRN Reason: Nausea/Vomiting Oxycodone HCl (Oxycodone Immediate Release Tab) 5 mg PO Q6 PRN PRN Reason: Pain 4-10 Last Admin: 11/28/17 13:03 Dose: 5 mg Pantoprazole Sodium (Protonix Ec Tab) 40 mg PO DAILY [facility] Last Admin: 11/29/17 09:37 Dose: 40 mg Silver Sulfadiazine (Silvadene 1% 50 Gm) 1 applic TOP BID [facility] Last Admin: 11/29/17 09:38 Dose: 1 applic Vitamin B Complex/Vit C/Folic Acid (Nephro-Jyoti) 1 tab PO DAILY [facility] Last Admin: 11/29/17 09:37 Dose: 1 tab - Labs Labs: 11/23/17 08:15 11/23/17 08:15 - Constitutional Appears: No Acute Distress - ENT Exam ENT Exam: Mucous Membranes Moist - Neck Exam Neck Exam: absent: Lymphadenopathy - Respiratory Exam Respiratory Exam: NORMAL BREATHING PATTERN. absent: Chest Wall Tenderness - Cardiovascular Exam Cardiovascular Exam: absent: JVD, Rubs - GI/Abdominal Exam GI & Abdominal Exam: Soft, Normal Bowel Sounds - Extremities Exam Extremities Exam: absent: Calf Tenderness - Back Exam Back Exam: absent: CVA tenderness (L), CVA tenderness (R) - Neurological Exam Neurological Exam: Alert - Psychiatric Exam Psychiatric exam: Normal Affect - Skin Skin Exam: absent: Cyanosis Assessment and Plan (1) Chronic kidney disease on chronic dialysis Assessment & Plan: GI bleed, ischemic colitis s/p hemicolectomy Diabetic chronic Kidney Disease (E11.22) Hypertensive Chronic Kidney Disease (I12.0) End stage renal disease (N18.6) dependence on hemodialysis (Z99.2) (MWF) via permacath Anemia (D64.9), Hyperphosphatemia (E83.39), Secondary Hyperparathyroidism (E21.1 ), HTN (I12.0) hx of CVA Plan: HD MWF Continue with Nephrovite 1 tab/day. PRBC as needed for anemia. On ESAwith HD phos binders currently on hold, will recheck level BP control with meds as ordered. Patient not on RAAS sony as BP tends to be low Glycemic control, Dialysis consistent diet Further work up/management as per primary team Dose meds/antibiotics (if needed) for ESRD status. Avoid fleets enema/magnesium based laxatives. patient scheduled for hemodialysis for tomorrow . Status: Acute (2) Gastrointestinal hemorrhage Status: Acute
--- NOTE | 2017-11-29 14:47 | CP.PCM.PN ---
Subjective - Date & Time of Evaluation Date of Evaluation: 11/29/17 Time of Evaluation: 14:46 - Subjective Subjective: Patient seen in the room, happy and smiling denies pain No HD today no fever, CP or SOB remains motivated continue current care Objective - Vital Signs/Intake and Output Vital Signs (last 24 hours): Temp Pulse Resp BP Pulse Ox 97 F L 82 19 108/59 L 96 11/29/17 10:54 11/29/17 09:37 11/29/17 08:39 11/29/17 09:37 11/29/17 08:39 Intake and Output: 11/29/17 11/29/17 06:59 18:59 Intake Total 200 Output Total 5 Balance 195 - Medications Medications: Current Medications Acetaminophen (Tylenol 325mg Tab) 975 mg PO Q8 PRN PRN Reason: Pain, Mild (1-3) Last Admin: 11/29/17 10:54 Dose: 975 mg Aspirin (Ecotrin) 81 mg PO DAILY [facility] Last Admin: 11/29/17 09:39 Dose: 81 mg Atorvastatin Calcium (Lipitor) 20 mg PO HS@2200 [facility] Last Admin: 11/28/17 21:08 Dose: 20 mg Epoetin Gonzalo (Procrit) 15,000 unit IV MWF [facility] Last Admin: 11/28/17 16:27 Dose: 15,000 unit Heparin Sodium (Porcine) (Heparin) 5,000 units SC Q8 [facility] PRN Reason: Protocol Last Admin: 11/29/17 06:01 Dose: 5,000 units Insulin Human Regular (Humulin R) 0 units SC ACHS [facility] PRN Reason: Protocol Last Admin: 11/29/17 12:41 Dose: Not Given Megestrol Acetate (Megace) 400 mg PO DAILY [facility] Last Admin: 11/29/17 09:38 Dose: 400 mg Metoprolol Tartrate (Lopressor) 25 mg PO Q12 [facility] Last Admin: 11/29/17 09:37 Dose: 25 mg Ondansetron HCl (Zofran Odt) 4 mg PO Q8H PRN PRN Reason: Nausea/Vomiting Oxycodone HCl (Oxycodone Immediate Release Tab) 5 mg PO Q6 PRN PRN Reason: Pain 4-10 Last Admin: 11/28/17 13:03 Dose: 5 mg Pantoprazole Sodium (Protonix Ec Tab) 40 mg PO DAILY [facility] Last Admin: 11/29/17 09:37 Dose: 40 mg Silver Sulfadiazine (Silvadene 1% 50 Gm) 1 applic TOP BID [facility] Last Admin: 11/29/17 09:38 Dose: 1 applic Vitamin B Complex/Vit C/Folic Acid (Nephro-Jyoti) 1 tab PO DAILY [facility] Last Admin: 11/29/17 09:37 Dose: 1 tab - Labs Labs: 11/23/17 08:15 11/23/17 08:15
[2017-11-30] MEDS: Insulin Regular 100 units/ml SC SCH ×4 (07:07→22:05)
--- NOTE | 2017-11-30 08:01 | CP.PCM.CON ---
History of Present Illness - History of Present Illness History of Present Illness: Pt is a 67 year old female admitted to [facility] following a CVA. Med history postive for DM, dialysis, infection, recent CVA. See medical record for complete medical history and medication list. Social History: pt lives in a home in [place]. She is on the second floor and son in the [place]. Pt is estranged from . She has another child in the [facility] and child in [place]. Pt reported postive relationship with children/family. She spoke of independence in the home and support from son when needed. Ed.Voc: pt raised in the [facility], college educated, she came to the 15+ years ago. 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 Psych history denied, pt denied a history of alcohol/substance abuse. MSE: Pt alert, oriented to year, month, day but not date. Affect constricted, patient reported dysphoria with separation from home and current circumstances. Strategies introduced to reduce distress, no psychosis, no si no hi ideation. Dx: Adjustment Dx plan: Continued Sup therapy 7:20-7:40 Past Patient History - Infectious Disease Hx of Infectious Diseases: None - Tetanus Immunizations Tetanus Immunization: Up to Date - Past Medical History & Family History Past Medical History?: Yes - Past Social History Smoking Status: Never Smoked Alcohol: None Drugs: Denies Home Situation {Lives}: With Family - CARDIAC Hx Cardiac Disorders: Yes Hx Hypertension: Yes - PULMONARY Hx Asthma: Yes Hx Bronchitis: No Hx Chronic Obstructive Pulmonary Disease (COPD): No Hx Emphysema: No Hx Pneumonia: No Hx Sleep Apnea: No - NEUROLOGICAL HX Cerebrovascular Accident: Yes (2011;2017) - HEENT Hx HEENT Problems: No Hx Cataracts: Yes (Cataract surgery June 2017) - RENAL Hx Chronic Kidney Disease: Yes Hx Dialysis: Yes Type of Dialysis Access: permacath Date of Last Dialysis Treatment: 11/21/17 Hx Kidney Stones: No Hx Renal Failure: Yes - ENDOCRINE/METABOLIC Hx Diabetes Mellitus Type 2: Yes - HEMATOLOGICAL/ONCOLOGICAL Hx Anemia: Yes (secondary to rectal bleeding-resolved.) Hx Sickle Cell Disease: No - INTEGUMENTARY Hx Dermatological Problems: No - MUSCULOSKELETAL/RHEUMATOLOGICAL Hx Falls: No - GASTROINTESTINAL Hx Bowel Surgery: Yes Hx Colitis: Yes (Ischemic colitis) Hx Crohn's Disease: No Hx Diverticulitis: Yes Hx Gall Bladder Disease: No Hx Ileostomy: Yes (2018) Hx Pancreatitis: No - GENITOURINARY/GYNECOLOGICAL Hx Sexually Transmitted Disorders: No - PSYCHIATRIC Hx Substance Use: No - SURGICAL HISTORY Hx Appendectomy: No Hx Cholecystectomy: No Hx Coronary Stent: No Other/Comment: Right breast Lumpectomy 1974 - ANESTHESIA Hx Anesthesia: Yes Hx Anesthesia Reactions: No Hx Malignant Hyperthermia: No Meds Allergies/Adverse Reactions: Allergies Allergy/AdvReac Type Severity Reaction Status Date / Time Latex, Natural Rubber Allergy Unknown RASH Verified 10/26/17 14:13 - Medications Medications: Current Medications Acetaminophen (Tylenol 325mg Tab) 975 mg PO Q8 PRN PRN Reason: Pain, Mild (1-3) Last Admin: 11/29/17 10:54 Dose: 975 mg Aspirin (Ecotrin) 81 mg PO DAILY [facility] Last Admin: 11/29/17 09:39 Dose: 81 mg Atorvastatin Calcium (Lipitor) 20 mg PO HS@2200 [facility] Last Admin: 11/29/17 21:54 Dose: 20 mg Epoetin Gonzalo (Procrit) 15,000 unit IV MWF [facility] Last Admin: 11/28/17 16:27 Dose: 15,000 unit Heparin Sodium (Porcine) (Heparin) 5,000 units SC Q8 [facility] PRN Reason: Protocol Last Admin: 11/30/17 06:35 Dose: 5,000 units Insulin Human Regular (Humulin R) 0 units SC ACHS [facility] PRN Reason: Protocol Last Admin: 11/30/17 07:07 Dose: Not Given Megestrol Acetate (Megace) 400 mg PO DAILY [facility] Last Admin: 11/29/17 09:38 Dose: 400 mg Metoprolol Tartrate (Lopressor) 25 mg PO Q12 [facility] Last Admin: 11/29/17 21:54 Dose: 25 mg Ondansetron HCl (Zofran Odt) 4 mg PO Q8H PRN PRN Reason: Nausea/Vomiting Oxycodone HCl (Oxycodone Immediate Release Tab) 5 mg PO Q6 PRN PRN Reason: Pain 4-10 Last Admin: 11/28/17 13:03 Dose: 5 mg Pantoprazole Sodium (Protonix Ec Tab) 40 mg PO DAILY [facility] Last Admin: 11/29/17 09:37 Dose: 40 mg Silver Sulfadiazine (Silvadene 1% 50 Gm) 1 applic TOP BID [facility] Last Admin: 11/29/17 17:11 Dose: 1 applic Vitamin B Complex/Vit C/Folic Acid (Nephro-Jyoti) 1 tab PO DAILY [facility] Last Admin: 11/29/17 09:37 Dose: 1 tab Results - Vital Signs Recent Vital Signs: Last Vital Signs Temp 98.0 F 11/29/17 20:58 Pulse 79 11/29/17 21:54 Resp 20 11/29/17 20:58 BP 123/67 11/29/17 21:54 Pulse Ox 98 11/29/17 20:58 - Labs Result Diagrams: 11/23/17 08:15 11/23/17 08:15 Labs: Laboratory Results - last 24 hr 11/29/17 11/29/17 11/29/17 12:11 15:49 21:15 POC Glucose (mg/dL) 105 118 H 118 H 11/30/17 05:56 POC Glucose (mg/dL) 103
[2017-11-30] MEDS: Iodoform 1/2inx15ft BOT EXT SCH (08:37)
[2017-11-30] MEDS: Megestrol Acetate 40 mg/ml Cup PO SCH (08:38)
[2017-11-30] MEDS: Multivitamin Vitamin B Complex (Nephro-Vite) Tab PO SCH (08:39)
[2017-11-30] MEDS: Pantoprazole 40 mg EC Tab PO SCH (08:39)
[2017-11-30] MEDS: Silver Sulfadiazine 1% CREAM (50 gm) TOP SCH ×2 (08:40→18:01)
[2017-11-30] MEDS: oxyCODONE 5 mg Immediate Release Tab PO PRN (08:41)
--- NOTE | 2017-11-30 12:13 | CP.PCM.PN ---
Subjective - Date & Time of Evaluation Date of Evaluation: 11/30/17 Time of Evaluation: 12:09 - Subjective Subjective: Surgery Pt seen and examined. No acute events. Objective - Vital Signs/Intake and Output Vital Signs (last 24 hours): Temp Pulse Resp BP Pulse Ox 98.2 F 96 H 22 133/83 98 11/30/17 08:35 11/30/17 08:37 11/30/17 08:35 11/30/17 08:37 11/30/17 08:35 - Medications Medications: Current Medications Acetaminophen (Tylenol 325mg Tab) 975 mg PO Q8 PRN PRN Reason: Pain, Mild (1-3) Last Admin: 11/29/17 10:54 Dose: 975 mg Aspirin (Ecotrin) 81 mg PO DAILY [facility] Last Admin: 11/30/17 08:36 Dose: 81 mg Atorvastatin Calcium (Lipitor) 20 mg PO HS@2200 [facility] Last Admin: 11/29/17 21:54 Dose: 20 mg Epoetin Gonzalo (Procrit) 15,000 unit IV MWF [facility] Last Admin: 11/28/17 16:27 Dose: 15,000 unit Heparin Sodium (Porcine) (Heparin) 5,000 units SC Q8 [facility] PRN Reason: Protocol Last Admin: 11/30/17 06:35 Dose: 5,000 units Insulin Human Regular (Humulin R) 0 units SC ACHS [facility] PRN Reason: Protocol Last Admin: 11/30/17 07:07 Dose: Not Given Megestrol Acetate (Megace) 400 mg PO DAILY [facility] Last Admin: 11/30/17 08:38 Dose: 400 mg Metoprolol Tartrate (Lopressor) 25 mg PO Q12 [facility] Last Admin: 11/30/17 08:37 Dose: 25 mg Ondansetron HCl (Zofran Odt) 4 mg PO Q8H PRN PRN Reason: Nausea/Vomiting Oxycodone HCl (Oxycodone Immediate Release Tab) 5 mg PO Q6 PRN PRN Reason: Pain 4-10 Last Admin: 11/30/17 08:41 Dose: 5 mg Pantoprazole Sodium (Protonix Ec Tab) 40 mg PO DAILY [facility] Last Admin: 11/30/17 08:39 Dose: 40 mg Silver Sulfadiazine (Silvadene 1% 50 Gm) 1 applic TOP BID [facility] Last Admin: 11/30/17 08:40 Dose: 1 applic Vitamin B Complex/Vit C/Folic Acid (Nephro-Jyoti) 1 tab PO DAILY [facility] Last Admin: 11/30/17 08:39 Dose: 1 tab - Labs Labs: 11/23/17 08:15 11/23/17 08:15 - Constitutional Appears: No Acute Distress - Head Exam Head Exam: ATRAUMATIC, NORMAL INSPECTION, NORMOCEPHALIC - Eye Exam Eye Exam: EOMI, Normal appearance, PERRL Pupil Exam: NORMAL ACCOMODATION, PERRL - ENT Exam ENT Exam: Mucous Membranes Moist, Normal Exam - Neck Exam Neck Exam: Full ROM, Normal Inspection. absent: Lymphadenopathy - Respiratory Exam Respiratory Exam: Clear to Ausculation Bilateral, NORMAL BREATHING PATTERN - Cardiovascular Exam Cardiovascular Exam: REGULAR RHYTHM, +S1, +S2. absent: Murmur - GI/Abdominal Exam GI & Abdominal Exam: Soft, Normal Bowel Sounds. absent: Distended, Tenderness Additional comments: lower pole incision packing in place. No bleeding. mild drainage. retention suture and henry in place - Exam Exam: NORMAL INSPECTION - Extremities Exam Extremities Exam: Full ROM, Normal Capillary Refill, Normal Inspection. absent : Joint Swelling, Pedal Edema - Back Exam Back Exam: NORMAL INSPECTION - Neurological Exam Neurological Exam: Alert, Awake, CN II-XII Intact, Oriented x3 - Psychiatric Exam Psychiatric exam: Normal Affect, Normal Mood - Skin Skin Exam: Warm Assessment and Plan - Assessment and Plan (Free Text) Assessment: s/p colostomy creation for GI bleed -Encourage ambulation/ Incentive spirometer -Regular diet -Ostomy management -Set up NVS for ostomy management or ostomy care education -Will remove henry/retention suture prior to DC -Dressing change PRN WIll JOSIE Dia
--- NOTE | 2017-11-30 13:17 | CP.PCM.PN ---
Subjective - Date & Time of Evaluation Date of Evaluation: 11/30/17 Time of Evaluation: 13:17 - Subjective Subjective: no significant changes clinically. Patient is awake and conscious. No nausea no vomiting. patient receiving rehabilitation and therapy Objective - Vital Signs/Intake and Output Vital Signs (last 24 hours): Temp Pulse Resp BP Pulse Ox 98.2 F 96 H 22 133/83 98 11/30/17 08:35 11/30/17 08:37 11/30/17 08:35 11/30/17 08:37 11/30/17 08:35 - Medications Medications: Current Medications Acetaminophen (Tylenol 325mg Tab) 975 mg PO Q8 PRN PRN Reason: Pain, Mild (1-3) Last Admin: 11/29/17 10:54 Dose: 975 mg Aspirin (Ecotrin) 81 mg PO DAILY [facility] Last Admin: 11/30/17 08:36 Dose: 81 mg Atorvastatin Calcium (Lipitor) 20 mg PO HS@2200 [facility] Last Admin: 11/29/17 21:54 Dose: 20 mg Epoetin Gonzalo (Procrit) 15,000 unit IV MWF [facility] Last Admin: 11/28/17 16:27 Dose: 15,000 unit Heparin Sodium (Porcine) (Heparin) 5,000 units SC Q8 [facility] PRN Reason: Protocol Last Admin: 11/30/17 13:12 Dose: 5,000 units Insulin Human Regular (Humulin R) 0 units SC ACHS [facility] PRN Reason: Protocol Last Admin: 11/30/17 12:30 Dose: Not Given Megestrol Acetate (Megace) 400 mg PO DAILY [facility] Last Admin: 11/30/17 08:38 Dose: 400 mg Metoprolol Tartrate (Lopressor) 25 mg PO Q12 [facility] Last Admin: 11/30/17 08:37 Dose: 25 mg Ondansetron HCl (Zofran Odt) 4 mg PO Q8H PRN PRN Reason: Nausea/Vomiting Oxycodone HCl (Oxycodone Immediate Release Tab) 5 mg PO Q6 PRN PRN Reason: Pain 4-10 Last Admin: 11/30/17 08:41 Dose: 5 mg Pantoprazole Sodium (Protonix Ec Tab) 40 mg PO DAILY [facility] Last Admin: 11/30/17 08:39 Dose: 40 mg Silver Sulfadiazine (Silvadene 1% 50 Gm) 1 applic TOP BID [facility] Last Admin: 11/30/17 08:40 Dose: 1 applic Vitamin B Complex/Vit C/Folic Acid (Nephro-Jyoti) 1 tab PO DAILY [facility] Last Admin: 11/30/17 08:39 Dose: 1 tab - Labs Labs: 11/23/17 08:15 11/23/17 08:15 - Constitutional Appears: No Acute Distress - ENT Exam ENT Exam: Mucous Membranes Moist - Neck Exam Neck Exam: absent: Lymphadenopathy - Respiratory Exam Respiratory Exam: absent: Chest Wall Tenderness, Rales - Cardiovascular Exam Cardiovascular Exam: absent: Gallop, JVD, Rubs - GI/Abdominal Exam GI & Abdominal Exam: Soft, Normal Bowel Sounds. absent: Guarding - Extremities Exam Extremities Exam: absent: Calf Tenderness - Back Exam Back Exam: absent: CVA tenderness (L) - Neurological Exam Neurological Exam: Alert - Psychiatric Exam Psychiatric exam: Anxious - Skin Skin Exam: absent: Cyanosis Assessment and Plan (1) Chronic kidney disease on chronic dialysis Assessment & Plan: patient scheduled to have dialysis shortly Patient tolerating hemodialysis Vital signs stable Dialysis discussed with the dialysis nurse at the bedside. ultrafiltration about 1500 mL as tolerated Sodium bath 138 mEq Potassium bath 2 milliequivalent The rest of the medical problem as noted GI bleed, ischemic colitis s/p hemicolectomy Diabetic chronic Kidney Disease (E11.22) Hypertensive Chronic Kidney Disease (I12.0) End stage renal disease (N18.6) dependence on hemodialysis (Z99.2) (MWF) via permacath Anemia (D64.9), Hyperphosphatemia (E83.39), Secondary Hyperparathyroidism (E21.1 ), HTN (I12.0) hx of CVA Status: Acute (2) Gastrointestinal hemorrhage Status: Acute
[2017-11-30] MEDS: Epoetin Alfa 20000 UNIT/ML (RENAL DOSE) IV SCH (15:31)
--- NOTE | 2017-11-30 16:11 | CP.PCM.PN ---
Subjective - Date & Time of Evaluation Date of Evaluation: 11/30/17 Time of Evaluation: 13:20 - Subjective Subjective: Patient seen and examined. Denied any complaint. Objective - Vital Signs/Intake and Output Vital Signs (last 24 hours): Temp Pulse Resp BP Pulse Ox 98.2 F 96 H 22 133/83 98 11/30/17 08:35 11/30/17 08:37 11/30/17 08:35 11/30/17 08:37 11/30/17 08:35 - Medications Medications: Current Medications Acetaminophen (Tylenol 325mg Tab) 975 mg PO Q8 PRN PRN Reason: Pain, Mild (1-3) Last Admin: 11/29/17 10:54 Dose: 975 mg Aspirin (Ecotrin) 81 mg PO DAILY [facility] Last Admin: 11/30/17 08:36 Dose: 81 mg Atorvastatin Calcium (Lipitor) 20 mg PO HS@2200 [facility] Last Admin: 11/29/17 21:54 Dose: 20 mg Epoetin Gonzalo (Procrit) 15,000 unit IV MWF [facility] Last Admin: 11/30/17 15:31 Dose: 15,000 unit Heparin Sodium (Porcine) (Heparin) 5,000 units SC Q8 [facility] PRN Reason: Protocol Last Admin: 11/30/17 13:12 Dose: 5,000 units Insulin Human Regular (Humulin R) 0 units SC ACHS [facility] PRN Reason: Protocol Last Admin: 11/30/17 12:30 Dose: Not Given Megestrol Acetate (Megace) 400 mg PO DAILY [facility] Last Admin: 11/30/17 08:38 Dose: 400 mg Metoprolol Tartrate (Lopressor) 25 mg PO Q12 [facility] Last Admin: 11/30/17 08:37 Dose: 25 mg Ondansetron HCl (Zofran Odt) 4 mg PO Q8H PRN PRN Reason: Nausea/Vomiting Oxycodone HCl (Oxycodone Immediate Release Tab) 5 mg PO Q6 PRN PRN Reason: Pain 4-10 Last Admin: 11/30/17 08:41 Dose: 5 mg Pantoprazole Sodium (Protonix Ec Tab) 40 mg PO DAILY [facility] Last Admin: 11/30/17 08:39 Dose: 40 mg Silver Sulfadiazine (Silvadene 1% 50 Gm) 1 applic TOP BID [facility] Last Admin: 11/30/17 08:40 Dose: 1 applic Vitamin B Complex/Vit C/Folic Acid (Nephro-Jyoti) 1 tab PO DAILY [facility] Last Admin: 11/30/17 08:39 Dose: 1 tab - Labs Labs: 11/23/17 08:15 11/23/17 08:15 - Constitutional Appears: No Acute Distress - Head Exam Head Exam: ATRAUMATIC - Eye Exam Eye Exam: absent: Scleral icterus - ENT Exam ENT Exam: Mucous Membranes Moist - Neck Exam Neck Exam: absent: Meningismus - Respiratory Exam Respiratory Exam: absent: Rales, Rhonchi, Wheezes, Respiratory Distress - Cardiovascular Exam Cardiovascular Exam: REGULAR RHYTHM, +S1, +S2 - GI/Abdominal Exam GI & Abdominal Exam: Soft. absent: Tenderness - Rectal Exam Rectal Exam: Deferred - Back Exam Back Exam: NORMAL INSPECTION - Neurological Exam Neurological Exam: Alert, Oriented x3 - Psychiatric Exam Psychiatric exam: Normal Affect - Skin Skin Exam: Dry, Intact Assessment and Plan - Assessment and Plan (Free Text) Assessment: 67 yo female with multiple morbidities such as ESRD, HTN, previous CVA and AFib was admitted initially at [facility] on 10/19/2017 because of bleeding from dialysis arm fistula. On the floor patient coded and was successfully resuscitated. She was then admitted in ICU intubated. MRI of the head on 2017 showed acute right MCA territory infarct involving the basal ganglia internal capsule anterior limb. When she was hemodynamically stable and extubated patient was transferred to Acute Rehab on 10/30/2017 for PT/OT. Patient continued to have episodes of GI bleed. On 11/04/2017 rectal bleeding worsened and patient had to be transferred to ICU because of hypovolemic shock associated with fever probably secondary to sepsis and bleeding. Colonoscopy done at [facility] revealed diffuse inflammation with ulceration on the entire colon secondary to ischemic colitis. On 11/09/2017, patient had left colon resection with ileostomy. She received a total of 7 units of PRBC. Hemodynamically stable she was transferred back to Acute Rehab on 11/22/2017 for continuation of PT/OT. 1. Acute CVA of Right MCA territory continue PT/OT continue ASA and statin Dr Villafuerte on physiatry consult 2. Recurrent GI bleed due to Ischemic colitis s/p left colon resection with ileostomy received 7 units of PRBC Received total 10 days of empiric antibiotics with Cipro and flagyl 5 days and Zosyn 5 days 3. Acute on chronic anemia stable GI bleed plus anemia of CKD Hgb: 9.7 continue Epogen 4. ESRD Dialysis MWF Dr Goetz on renal consult 5. Paroxysmal Afib rate controlled continue Metoprolol 6. DVT prophylaxis onHeparin 5000 units SC q 8hrs
[2017-12-01 06:33] LABS: HEMOGLOBIN 9.7 g/dL (12.0-16.0); MEAN CELL VOLUME 92.4 fl (81.0-99.0); MEAN CORPUSCULAR HEMOGLOBIN 29.6 pg (27.0-31.0); RBC 3.27 Mil/uL (3.80-5.20); RED CELL DISTRIBUTION WIDTH 20.8 % (11.5-14.5); WHITE BLOOD COUNT 13.9 K/uL (4.8-10.8)
[2017-12-01 06:43] LABS: CALCIUM 9.7 mg/dL (8.4-10.2)
[2017-12-01] MEDS: Insulin Regular 100 units/ml SC SCH ×4 (07:10→21:04)
[2017-12-01] MEDS: Multivitamin Vitamin B Complex (Nephro-Vite) Tab PO SCH (08:54)
[2017-12-01] MEDS: Iodoform 1/2inx15ft BOT EXT SCH (08:54)
[2017-12-01] MEDS: Pantoprazole 40 mg EC Tab PO SCH (08:54)
[2017-12-01] MEDS: Megestrol Acetate 40 mg/ml Cup PO SCH (08:55)
[2017-12-01] MEDS: Silver Sulfadiazine 1% CREAM (50 gm) TOP SCH ×2 (08:55→17:15)
[2017-12-01] MEDS ORDERED: Potassium Chloride 20 mEq ER Tab PO ONE (10:20)
[2017-12-01 12:04] LABS: SQUAMOUS EPITHIAL 1 /hpf (0-5); URINE BILIRUBIN NEGATIVE (NEGATIVE); URINE BLOOD NEGATIVE (NEGATIVE); URINE CLARITY SLIGHTY-CLOUDY (Clear); URINE COLOR YELLOW (YELLOW); URINE GLUCOSE (UA) 150 mg/dL (Normal); URINE LEUKOCYTE ESTERASE NEG Leu/uL (Negative); URINE PROTEIN 100 mg/dL (NEGATIVE); URINE UROBILINOGEN 0.2-1.0 mg/dL (0.2-1.0)
--- NOTE | 2017-12-01 19:22 | CP.PCM.PN ---
Subjective - Date & Time of Evaluation Date of Evaluation: 12/01/17 Time of Evaluation: 19:21 - Subjective Subjective: Patient seen in the room denies sob/cp afebrile colostomy in place minimal functional independence outside of UE self care feeding and grooming motivated continue HD Objective - Vital Signs/Intake and Output Vital Signs (last 24 hours): Temp Pulse Resp BP Pulse Ox 97.2 F L 101 H 20 151/69 H 99 12/01/17 07:57 12/01/17 08:54 12/01/17 07:57 12/01/17 08:54 12/01/17 07:57 Intake and Output: 12/01/17 12/02/17 18:59 06:59 Output Total 5 Balance -5 - Medications Medications: Current Medications Acetaminophen (Tylenol 325mg Tab) 975 mg PO Q8 PRN PRN Reason: Pain, Mild (1-3) Last Admin: 11/29/17 10:54 Dose: 975 mg Aspirin (Ecotrin) 81 mg PO DAILY [facility] Last Admin: 12/01/17 08:54 Dose: 81 mg Atorvastatin Calcium (Lipitor) 20 mg PO HS@2200 [facility] Last Admin: 11/30/17 22:04 Dose: 20 mg Epoetin Gonzalo (Procrit) 15,000 unit IV MWF [facility] Last Admin: 11/30/17 15:31 Dose: 15,000 unit Heparin Sodium (Porcine) (Heparin) 5,000 units SC Q8 [facility] PRN Reason: Protocol Last Admin: 12/01/17 14:00 Dose: 5,000 units Insulin Human Regular (Humulin R) 0 units SC ACHS [facility] PRN Reason: Protocol Last Admin: 12/01/17 17:15 Dose: Not Given Megestrol Acetate (Megace) 400 mg PO DAILY [facility] Last Admin: 12/01/17 08:55 Dose: 400 mg Metoprolol Tartrate (Lopressor) 25 mg PO Q12 [facility] Last Admin: 12/01/17 08:54 Dose: 25 mg Ondansetron HCl (Zofran Odt) 4 mg PO Q8H PRN PRN Reason: Nausea/Vomiting Oxycodone HCl (Oxycodone Immediate Release Tab) 5 mg PO Q6 PRN PRN Reason: Pain 4-10 Last Admin: 11/30/17 08:41 Dose: 5 mg Pantoprazole Sodium (Protonix Ec Tab) 40 mg PO DAILY [facility] Last Admin: 12/01/17 08:54 Dose: 40 mg Silver Sulfadiazine (Silvadene 1% 50 Gm) 1 applic TOP BID [facility] Last Admin: 12/01/17 17:15 Dose: 1 applic Vitamin B Complex/Vit C/Folic Acid (Nephro-Jyoti) 1 tab PO DAILY [facility] Last Admin: 12/01/17 08:54 Dose: 1 tab - Labs Labs: 12/01/17 06:00 12/01/17 06:00
[2017-12-02] MEDS: Insulin Regular 100 units/ml SC SCH ×4 (06:30→21:36)
[2017-12-02 07:14] LABS: HEMOGLOBIN 9.6 g/dL (12.0-16.0); MEAN CELL VOLUME 93.9 fl (81.0-99.0); MEAN CORPUSCULAR HEMOGLOBIN 29.4 pg (27.0-31.0); MEAN CORPUSCULAR HGB CONC 31.4 g/dL (33.0-37.0); RBC 3.25 Mil/uL (3.80-5.20); RED CELL DISTRIBUTION WIDTH 20.9 % (11.5-14.5); WHITE BLOOD COUNT 12.7 K/uL (4.8-10.8)
[2017-12-02 07:36] LABS: CALCIUM 10.1 mg/dL (8.4-10.2)
[2017-12-02] MEDS: Silver Sulfadiazine 1% CREAM (50 gm) TOP SCH ×2 (08:10→16:17)
[2017-12-02] MEDS: Multivitamin Vitamin B Complex (Nephro-Vite) Tab PO SCH (08:52)
[2017-12-02] MEDS: Megestrol Acetate 40 mg/ml Cup PO SCH (08:56)
[2017-12-02] MEDS: Pantoprazole 40 mg EC Tab PO SCH (08:56)
[2017-12-02] MEDS: Iodoform 1/2inx15ft BOT EXT SCH (09:00)
[2017-12-03] MEDS: Insulin Regular 100 units/ml SC SCH ×4 (06:37→21:29)
[2017-12-03] MEDS: Iodoform 1/2inx15ft BOT EXT SCH (09:35)
[2017-12-03] MEDS: Silver Sulfadiazine 1% CREAM (50 gm) TOP SCH ×2 (09:36→18:11)
[2017-12-03] MEDS: Megestrol Acetate 40 mg/ml Cup PO SCH (09:36)
[2017-12-03] MEDS: Pantoprazole 40 mg EC Tab PO SCH (09:36)
[2017-12-03] MEDS: Multivitamin Vitamin B Complex (Nephro-Vite) Tab PO SCH (09:36)
[2017-12-03] MEDS: oxyCODONE 5 mg Immediate Release Tab PO PRN (09:38)
--- NOTE | 2017-12-03 11:10 | CP.PCM.PN ---
Subjective - Date & Time of Evaluation Date of Evaluation: 12/03/17 Time of Evaluation: 10:00 - Subjective Subjective: Patient continuing to do well. States she is tolerating physical therapy well. No new complaints. In good spirits and is smiling. HD stable. Objective - Vital Signs/Intake and Output Vital Signs (last 24 hours): Temp Pulse Resp BP Pulse Ox 97.9 F 77 20 144/80 100 12/03/17 07:58 12/03/17 09:35 12/03/17 07:58 12/03/17 09:35 12/03/17 07:58 - Medications Medications: Current Medications Acetaminophen (Tylenol 325mg Tab) 975 mg PO Q8 PRN PRN Reason: Pain, Mild (1-3) Last Admin: 11/29/17 10:54 Dose: 975 mg Aspirin (Ecotrin) 81 mg PO DAILY [facility] Last Admin: 12/03/17 09:35 Dose: 81 mg Atorvastatin Calcium (Lipitor) 20 mg PO HS@2200 [facility] Last Admin: 12/02/17 21:44 Dose: 20 mg Epoetin Gonzalo (Procrit) 15,000 unit IV MWF [facility] Last Admin: 11/30/17 15:31 Dose: 15,000 unit Heparin Sodium (Porcine) (Heparin) 5,000 units SC Q8 [facility] PRN Reason: Protocol Last Admin: 12/03/17 06:24 Dose: 5,000 units Insulin Human Regular (Humulin R) 0 units SC ACHS [facility] PRN Reason: Protocol Last Admin: 12/03/17 06:37 Dose: Not Given Megestrol Acetate (Megace) 400 mg PO DAILY [facility] Last Admin: 12/03/17 09:36 Dose: 400 mg Metoprolol Tartrate (Lopressor) 25 mg PO Q12 [facility] Last Admin: 12/03/17 09:35 Dose: 25 mg Ondansetron HCl (Zofran Odt) 4 mg PO Q8H PRN PRN Reason: Nausea/Vomiting Oxycodone HCl (Oxycodone Immediate Release Tab) 5 mg PO Q6 PRN PRN Reason: Pain 4-10 Last Admin: 12/03/17 09:38 Dose: 5 mg Pantoprazole Sodium (Protonix Ec Tab) 40 mg PO DAILY [facility] Last Admin: 12/03/17 09:36 Dose: 40 mg Silver Sulfadiazine (Silvadene 1% 50 Gm) 1 applic TOP BID [facility] Last Admin: 12/03/17 09:36 Dose: 1 applic Vitamin B Complex/Vit C/Folic Acid (Nephro-Jyoti) 1 tab PO DAILY [facility] Last Admin: 12/03/17 09:36 Dose: 1 tab - Labs Labs: 12/02/17 05:30 12/02/17 05:30 - Additional Findings Additional findings: Physical exam: Constitutional- cooperative, awake, alert Head- NCAT, PERRL Eye- PERRL, EOMI ENT- normal exam, MMM. Neck- normal inspection, supple, no JVD Respiratory- CTAB, no wheezes rales rhonchi Cardiovascular- RRR, +S1, +S2 no MRG GI/Abdominal- normal bowel sounds, soft, no mass, no hsm Skin- warm, dry Extremities Exam- normal capillary refill, normal inspection Neurological Exam- alert, awake, oriented Psych- normal mood, normal affect Assessment and Plan - Assessment and Plan (Free Text) Plan: 67 yo female with multiple medical problems like ESRD on dialysis,HTN, obesity , history of old CVA in 2011, atrial fibrillation,with history of recent CVA on right MCA distribution was initially admitted to [facility] where she developed GI bleed with hemorrhagic shock and severe ischemic colitis diagnosed with colonoscopy. She also had a cardiac arrest and respiratory failure requiring intubation . After improving she was transferred to acute rehab for physical therapy where she continued to have some episodes of GI bleed. On 11/04 she started to have worsening of rectal bleed , with blood clots per rectum hypotension, fever Tmax 102 and some lower abdominal tenderness. Full septic panel was ordered , Cipro and Flagyl given, IVF bolus started. Patient was then admitted to ICU with diagnosis of hypovolemic shock and GI bleed and rule out sepsis. Her colonoscopy performed at [facility] had shown: diffuse severe inflammation with ulcerations in the entire colon, severe ischemic colitis mucosal ulcerations up to 40cm dinorah. GI, surgery and ID consulted Underwent Left Colon resection with ileostomy on 11/09. Transfused total 7 unit PRBC. Hemodynamically stable, iliostomy is working and surgical wound is healing. 1. s/p Hypovolemic shock secondary to GI bleed-- resolved off Levophed drip since 11/05 s/p 7 unit PRBC transfusion received TPN from 11/11 - 11/15 diet advanced and tolerating In acute rehab for PT/OT 2. Recurrent lower GI bleed due to Ischemic colitis s/p total 7 unit PRBC transfusion with last unit 2 days ago. Hgb today 10 s/p left colon resection with ileostomy 11/09 Oxycodone PRN for pain stoma with good output . Continue renal diet Promote ambulation and out of bed to chair off TPN removed TLC from right groin and placed RUE PICC line 11/16 Wound care as per surgery Received total 10 days of empiric antibiotics with Cipro and flagyl 5 days and Zosyn 5 days 3. Acute on chronic anemia-stable GI blood loss on top of chronic kidney disease anemia s/p 7 unit PRBC transfusion HG 10 today continue Epogen 4. History of recent cardiac arrest/respiratory arrest 5. ESRD on Dialysis MWF Nephro consulted continue HD as scheduled Had HD 11/21 6. History of R CVA 10/24/17 on ASA and Statin Continue PT 7. Paroxysmal Afib patient is in and out SR and afib on monitor, rate controlled on metoprolol no therapeutic anticoag due to GI bleed on ASA 8. DM ruled out Hgb A1c 6 accuchecks and insulin coverage 9. DVT prophylaxis SCDs Hold heparin for now
--- NOTE | 2017-12-03 13:38 | CP.PCM.PN ---
Subjective - Date & Time of Evaluation Date of Evaluation: 12/03/17 Time of Evaluation: 13:38 - Subjective Subjective: no events overnight Nephrology Consultation Note Assessment: stable GI bleed, ischemic colitis s/p hemicolectomy Diabetic chronic Kidney Disease (E11.22) Hypertensive Chronic Kidney Disease (I12.0) End stage renal disease (N18.6) dependence on hemodialysis (Z99.2) (MWF) via permacath Anemia (D64.9), Hyperphosphatemia (E83.39), Secondary Hyperparathyroidism (E21.1 ), HTN (I12.0) hx of CVA Plan: Will plan for HD today as ordered MWF schedule. Continue with Nephrovite 1 tab/ day. PRBC as needed for anemia. On DEYA as epogen with HD held phos binders Initially level of phos low, last phos level 4.4, repeat with next labs BP control with meds as ordered. Glycemic control Physical Examination: General Appearance: Comfortable, in no acute respiratory distress, co-operative . Vitals reviewed and noted as below Head; Atraumatic, normocephalic ENT: no ulcers EYES: Eye muscles and extraocular movement intact. Sclera is anicteric. Neck; supple no lymphadenopathy, no thyromegaly or bruit Lungs: Normal respiratory rate. Breath sounds bilateral equal and clear Heart: Normal rate. s1s2 normal. No rub or gallop. Extremities: 1+ edema. No varicose veins Neurological: Patient is awake alert Follows commands Skin: Warm and dry. Normal turgor. No rash. Abdomen: Abdomen is soft. Bowel sounds +. There is no abdominal tenderness, no guarding/rigidity or organomegaly. has left colostomy and midline henry + Psych: limited insight. normal affect/mood MSK: no joint tenderness Objective - Vital Signs/Intake and Output Vital Signs (last 24 hours): Temp Pulse Resp BP Pulse Ox 97.9 F 77 20 144/80 100 12/03/17 07:58 12/03/17 09:35 12/03/17 07:58 12/03/17 09:35 12/03/17 07:58 - Medications Medications: Current Medications Acetaminophen (Tylenol 325mg Tab) 975 mg PO Q8 PRN PRN Reason: Pain, Mild (1-3) Last Admin: 11/29/17 10:54 Dose: 975 mg Aspirin (Ecotrin) 81 mg PO DAILY [facility] Last Admin: 12/03/17 09:35 Dose: 81 mg Atorvastatin Calcium (Lipitor) 20 mg PO HS@2200 [facility] Last Admin: 12/02/17 21:44 Dose: 20 mg Epoetin Gonzalo (Procrit) 15,000 unit IV MWF [facility] Last Admin: 11/30/17 15:31 Dose: 15,000 unit Heparin Sodium (Porcine) (Heparin) 5,000 units SC Q8 [facility] PRN Reason: Protocol Last Admin: 12/03/17 06:24 Dose: 5,000 units Insulin Human Regular (Humulin R) 0 units SC ACHS [facility] PRN Reason: Protocol Last Admin: 12/03/17 12:08 Dose: Not Given Megestrol Acetate (Megace) 400 mg PO DAILY [facility] Last Admin: 12/03/17 09:36 Dose: 400 mg Metoprolol Tartrate (Lopressor) 25 mg PO Q12 [facility] Last Admin: 12/03/17 09:35 Dose: 25 mg Ondansetron HCl (Zofran Odt) 4 mg PO Q8H PRN PRN Reason: Nausea/Vomiting Oxycodone HCl (Oxycodone Immediate Release Tab) 5 mg PO Q6 PRN PRN Reason: Pain 4-10 Last Admin: 12/03/17 09:38 Dose: 5 mg Pantoprazole Sodium (Protonix Ec Tab) 40 mg PO DAILY [facility] Last Admin: 12/03/17 09:36 Dose: 40 mg Silver Sulfadiazine (Silvadene 1% 50 Gm) 1 applic TOP BID [facility] Last Admin: 12/03/17 09:36 Dose: 1 applic Vitamin B Complex/Vit C/Folic Acid (Nephro-Jyoti) 1 tab PO DAILY [facility] Last Admin: 12/03/17 09:36 Dose: 1 tab - Labs Labs: 12/02/17 05:30 12/02/17 05:30
[2017-12-03] MEDS: Epoetin Alfa 20000 UNIT/ML (RENAL DOSE) IV SCH (15:15)
[2017-12-04] MEDS: oxyCODONE 5 mg Immediate Release Tab PO PRN (02:18)
[2017-12-04 06:22] LABS: HEMOGLOBIN 10.1 g/dL (12.0-16.0); MEAN CELL VOLUME 92.5 fl (81.0-99.0); MEAN CORPUSCULAR HEMOGLOBIN 29.4 pg (27.0-31.0); MEAN CORPUSCULAR HGB CONC 31.8 g/dL (33.0-37.0); RBC 3.42 Mil/uL (3.80-5.20); RED CELL DISTRIBUTION WIDTH 21.8 % (11.5-14.5); WHITE BLOOD COUNT 12.2 K/uL (4.8-10.8)
[2017-12-04 06:38] LABS: CALCIUM 10.1 mg/dL (8.4-10.2)
[2017-12-04] MEDS: Insulin Regular 100 units/ml SC SCH ×4 (06:47→21:32)
[2017-12-04] MEDS: Iodoform 1/2inx15ft BOT EXT SCH (08:44)
[2017-12-04] MEDS: Pantoprazole 40 mg EC Tab PO SCH (08:45)
[2017-12-04] MEDS: Silver Sulfadiazine 1% CREAM (50 gm) TOP SCH ×2 (08:45→16:47)
[2017-12-04] MEDS: Megestrol Acetate 40 mg/ml Cup PO SCH (08:46)
[2017-12-04] MEDS: Multivitamin Vitamin B Complex (Nephro-Vite) Tab PO SCH (08:46)
--- NOTE | 2017-12-04 13:13 | PSY.TMCNF ---
Nursing - Vital Signs Vital Signs (Last 8 hours): Vital Signs 12/04/17 12/04/17 12/04/17 07:55 08:45 09:00 Temperature 98.2 F 98.2 F Pulse Rate 83 83 83 Respiratory 20 20 Rate Blood Pressure 111/63 111/63 111/63 O2 Sat by Pulse 100 Oximetry Pain: 0 - Precautions: Precautions: Fall Prevention, Cardiac/Pulmonary, Pressure Ulcer - Medications/Other Issues Comment: Pt is at moderate nutritional risk. Goals-. 1. Pt to consume 75-100 % of meals(not met, continue). 2. K+ WNL(NA, continue). Follow-up assessment due by 12/05/2017. - Consults Comment: Dr. Villafuerte, Dr. Sung - Skin Incision Site: Mid-abdomen Drainage: Serosanguineous Dressing Status: Clean, Dry, Intact Incision: Sutures Intact, Draining Incision Line Treatment: Cleansed with NSS, packed gaped area with iodoform and covered with dry dressing - Toileting Toileting: Dependent - Bladder Management Bladder Pattern: Incontinent Voiding Method: Diaper Bladder Management: Dependent - Bowel Management Bowel Pattern: Fecal Management System Bowel Management: Dependent Frequency of Accidents: 0 - Transfers Transfers: Dependent - ADL's ADL's: Maximal Assistance - Patient/Family Teaching Comments: N/A - Goals/Time Frame Comments: Per multidisciplinary care plan and goals - Provider Provider: Angie MONROEN RN CRRN Physical Therapy - Bed Mobility Bed Mobility: Dependent - Transfers Wheelchair to Mat: Dependent Sit to Stand: Maximum Assistance, Dependent - Ambulation Level of Assistance: Not Tested Assistive Devices: N/A - Stair Negotiation Stairs: Level of Assistance: Not Tested - Standing Balance Static Stand: Moderate Assistance Dynamic Stand: Unable to assess/perform - Pain Management Techniques: Medication - Insight/Carryover Insight/Carryover: Poor - Patient/Family Education Comment: Pt education for increased motivation to participate in PT interventions, reduced fear of falling, safety - Assessment/Plan Assessment: Pt is very fearful of falling. Max A for functional trnasfers and LE dressing and toileting. - Goals Timeframe: 1 week Goals: Sit < > supine min A. Sit < > stand min A. Bed < > chair tranfser min A. Pt will ambulate 50 ft with RW and min A - Provider License Number: [id number] Occupational Therapy - Arousal/Attention/Orientation Patient Orientation: Person, Place - ADL/IADL Self Feeding: Supervision Grooming: Supervision Bathing-Upper Extremity: Moderate Assistance Bathing-Lower Extremity: Maximum Assistance Dressing-Upper Extremity: Moderate Assistance Dressing-Lower Extremity: Dependent - Sitting Balance Static Sitting: Supervision Dynamic Sitting: Reaches across midline - Transfers Wheelchair to Bed Transfers: Maximum Assistance Toilet Transfers: Maximum Assistance - Wheelchair Management Level of Assistance: Dependent - Upper Extremity Status Right Upper Extremity Comment: 3+/5 Left Upper Extremity Comment: 3+/5 - Pain Alleviating Techniques: Medication - Insight/Carryover Insight/Carryover: Poor - Patient/Family Education Comment: Pt education for increased motivation to participate in PT interventions, reduced fear of falling, safety - Assessment/Plan Assessment: Pt is very fearful of falling. Max A for functional trnasfers and LE dressing and toileting. - Goals Timeframe: 1 week Goals: Sit < > supine min A. Sit < > stand min A. Bed < > chair tranfser min A. Pt will ambulate 50 ft with RW and min A - Provider Therapist: JACK Pride Speech Therapy - Consult Information Patient on Program: Yes Medical Diagnosis: CVA Treatment Diagnosis: mild-moderate cognitive deficits - Assessment Problem Solving Impairment: Mild Memory Impairment: Moderate - Plan Assessment: Pt is very fearful of falling. Max A for functional trnasfers and LE dressing and toileting. - Provider Therapist: Toshia Carlos License Number: [id number] Recreational Therapy - Participation Participation: Participates in Individual and/or Group Sessions, Monitors His/ Her Own Leisure Time - Attendance Attendance: Daily - Activities Leisure Activities: Cards and Games - Socialization Level of Socialization: Initiates/interacts freely with care givers and peer - Diversional Time Diversional Time: listening to music - Assessment Assessment/Plan: Pt is very fearful of falling. Max A for functional trnasfers and LE dressing and toileting. - Provider Therapist: Erin Giles, BECK OPERATOR #[id number] Nutrition - Current Diet Current Diet/ Supplement/ Feedings: Heart healthy, Moderate consistent CHO, Renal-Dialysis diet with Nepro BID - Appetite Percent Meal Consumed: 50-74% - Comments Comments: N/A - Assessment/Goals/Time Frame Assessment/Goals/Time Frame: Pt is at moderate nutritional risk. Goals-. 1. Pt to consume 75-100% of meals(not met, continue). 2. K+ WNL(NA, continue). Follow-up assessment due by 12/05/2017. - Provider Provider: Marybeth Almanza MS, RD Case Management - Psychosocial Assessment Support Systems: Moises Isabel (spouse)- [phone]. Nurys Isabel ( daughter)- [phone] Psychological Interventions/Needs: Patient is alert - Discharge Plan Discharge Plan: Subacute care - Provider Provider: DENNYS Cruz, OVEN WORKER License Number: [id number] Rehabilitation Plan - Treatment Plan Treatment Plan: Physical Therapy, Occupational Therapy, Speech, Dietary, Patient /Family Education - Discharge Plan Estimated Date of Discharge: 12/13/17 Discharge to: Subacute
--- NOTE | 2017-12-04 13:38 | CP.PCM.PN ---
Subjective - Date & Time of Evaluation Date of Evaluation: 12/04/17 Time of Evaluation: 13:37 - Subjective Subjective: patient is awake and conscious sitting up in the chair Patient feels much better Objective - Vital Signs/Intake and Output Vital Signs (last 24 hours): Temp Pulse Resp BP Pulse Ox 98.2 F 83 20 111/63 100 12/04/17 09:00 12/04/17 09:00 12/04/17 09:00 12/04/17 09:00 12/04/17 07:55 - Medications Medications: Current Medications Acetaminophen (Tylenol 325mg Tab) 975 mg PO Q8 PRN PRN Reason: Pain, Mild (1-3) Last Admin: 11/29/17 10:54 Dose: 975 mg Aspirin (Ecotrin) 81 mg PO DAILY [facility] Last Admin: 12/04/17 08:46 Dose: 81 mg Atorvastatin Calcium (Lipitor) 20 mg PO HS@2200 [facility] Last Admin: 12/03/17 21:35 Dose: 20 mg Epoetin Gonzalo (Procrit) 15,000 unit IV MWF [facility] Last Admin: 12/03/17 15:15 Dose: 15,000 unit Heparin Sodium (Porcine) (Heparin) 5,000 units SC Q8 [facility] PRN Reason: Protocol Last Admin: 12/04/17 13:27 Dose: 5,000 units Insulin Human Regular (Humulin R) 0 units SC ACHS [facility] PRN Reason: Protocol Last Admin: 12/04/17 12:22 Dose: Not Given Megestrol Acetate (Megace) 400 mg PO DAILY [facility] Last Admin: 12/04/17 08:46 Dose: 400 mg Metoprolol Tartrate (Lopressor) 25 mg PO Q12 [facility] Last Admin: 12/04/17 08:45 Dose: 25 mg Ondansetron HCl (Zofran Odt) 4 mg PO Q8H PRN PRN Reason: Nausea/Vomiting Oxycodone HCl (Oxycodone Immediate Release Tab) 5 mg PO Q6 PRN PRN Reason: Pain 4-10 Last Admin: 12/04/17 02:18 Dose: 5 mg Pantoprazole Sodium (Protonix Ec Tab) 40 mg PO DAILY [facility] Last Admin: 12/04/17 08:45 Dose: 40 mg Silver Sulfadiazine (Silvadene 1% 50 Gm) 1 applic TOP BID [facility] Last Admin: 12/04/17 08:45 Dose: 1 applic Vitamin B Complex/Vit C/Folic Acid (Nephro-Jyoti) 1 tab PO DAILY [facility] Last Admin: 12/04/17 08:46 Dose: 1 tab - Labs Labs: 12/04/17 05:25 12/04/17 05:25 - Constitutional Appears: No Acute Distress - Eye Exam Eye Exam: Conjunctival injection - ENT Exam ENT Exam: Mucous Membranes Moist - Neck Exam Neck Exam: absent: Lymphadenopathy - Respiratory Exam Respiratory Exam: NORMAL BREATHING PATTERN. absent: Chest Wall Tenderness - Cardiovascular Exam Cardiovascular Exam: absent: Gallop, JVD, Rubs - GI/Abdominal Exam GI & Abdominal Exam: Soft, Normal Bowel Sounds - Extremities Exam Extremities Exam: absent: Calf Tenderness - Back Exam Back Exam: absent: CVA tenderness (L), CVA tenderness (R) - Neurological Exam Neurological Exam: Alert - Psychiatric Exam Psychiatric exam: Normal Affect - Skin Skin Exam: absent: Cyanosis Assessment and Plan (1) Chronic kidney disease on chronic dialysis Assessment & Plan: GI bleed, ischemic colitis s/p hemicolectomy Diabetic chronic Kidney Disease (E11.22) Hypertensive Chronic Kidney Disease (I12.0) End stage renal disease (N18.6) dependence on hemodialysis (Z99.2) (MWF) via permacath Anemia (D64.9), Hyperphosphatemia (E83.39), Secondary Hyperparathyroidism (E21.1 ), HTN (I12.0) hx of CVA Plan: HD MWF Continue with Nephrovite 1 tab/day. PRBC as needed for anemia. On ESAwith HD phos binders currently on hold, will recheck level BP control with meds as ordered. Patient not on RAAS sony as BP tends to be low Glycemic control, Dialysis consistent diet Further work up/management as per primary team Dose meds/antibiotics (if needed) for ESRD status. Avoid fleets enema/magnesium based laxatives. patient scheduled for hemodialysis for tomorrow . Status: Acute (2) Gastrointestinal hemorrhage Status: Acute
--- NOTE | 2017-12-04 13:45 | CP.PCM.PN ---
Subjective - Date & Time of Evaluation Date of Evaluation: 12/04/17 Time of Evaluation: 13:43 - Subjective Subjective: Patient seen NAD denies pain at this time discussed in detail the importance of working harder in therapies still not ambulating will obviously not be able to discharge home at this point and will need to go to [facility] colostomy intact continue current care ESRD on HD Objective - Vital Signs/Intake and Output Vital Signs (last 24 hours): Temp Pulse Resp BP Pulse Ox 98.2 F 83 20 111/63 100 12/04/17 09:00 12/04/17 09:00 12/04/17 09:00 12/04/17 09:00 12/04/17 07:55 - Medications Medications: Current Medications Acetaminophen (Tylenol 325mg Tab) 975 mg PO Q8 PRN PRN Reason: Pain, Mild (1-3) Last Admin: 11/29/17 10:54 Dose: 975 mg Aspirin (Ecotrin) 81 mg PO DAILY [facility] Last Admin: 12/04/17 08:46 Dose: 81 mg Atorvastatin Calcium (Lipitor) 20 mg PO HS@2200 [facility] Last Admin: 12/03/17 21:35 Dose: 20 mg Epoetin Gonzalo (Procrit) 15,000 unit IV MWF [facility] Last Admin: 12/03/17 15:15 Dose: 15,000 unit Heparin Sodium (Porcine) (Heparin) 5,000 units SC Q8 [facility] PRN Reason: Protocol Last Admin: 12/04/17 13:27 Dose: 5,000 units Insulin Human Regular (Humulin R) 0 units SC ACHS [facility] PRN Reason: Protocol Last Admin: 12/04/17 12:22 Dose: Not Given Megestrol Acetate (Megace) 400 mg PO DAILY [facility] Last Admin: 12/04/17 08:46 Dose: 400 mg Metoprolol Tartrate (Lopressor) 25 mg PO Q12 [facility] Last Admin: 12/04/17 08:45 Dose: 25 mg Ondansetron HCl (Zofran Odt) 4 mg PO Q8H PRN PRN Reason: Nausea/Vomiting Oxycodone HCl (Oxycodone Immediate Release Tab) 5 mg PO Q6 PRN PRN Reason: Pain 4-10 Last Admin: 12/04/17 02:18 Dose: 5 mg Pantoprazole Sodium (Protonix Ec Tab) 40 mg PO DAILY [facility] Last Admin: 12/04/17 08:45 Dose: 40 mg Silver Sulfadiazine (Silvadene 1% 50 Gm) 1 applic TOP BID [facility] Last Admin: 12/04/17 08:45 Dose: 1 applic Vitamin B Complex/Vit C/Folic Acid (Nephro-Jyoti) 1 tab PO DAILY [facility] Last Admin: 12/04/17 08:46 Dose: 1 tab - Labs Labs: 12/04/17 05:25 12/04/17 05:25
--- NOTE | 2017-12-04 15:24 | CP.PCM.PCO ---
Physician Communication Note - Physician Communication Note Physician Communication Note: See Dr. Dia in office in 1 week for possible suture & drain removal.
[2017-12-05] MEDS: Insulin Regular 100 units/ml SC SCH ×3 (06:54→17:05)
[2017-12-05] MEDS: Iodoform 1/2inx15ft BOT EXT SCH (08:16)
[2017-12-05] MEDS: Silver Sulfadiazine 1% CREAM (50 gm) TOP SCH ×2 (08:16→17:36)
[2017-12-05] MEDS: Multivitamin Vitamin B Complex (Nephro-Vite) Tab PO SCH (08:16)
[2017-12-05] MEDS: Megestrol Acetate 40 mg/ml Cup PO SCH (08:17)
[2017-12-05] MEDS: Pantoprazole 40 mg EC Tab PO SCH (08:17)
--- NOTE | 2017-12-05 10:00 | CP.PCM.PN ---
Subjective - Date & Time of Evaluation Date of Evaluation: 12/05/17 Time of Evaluation: 13:30 - Subjective Subjective: Patient seen and examined during therapy.Feeling well and improved. Participating with PT. Hemodynamically stable, afebrile. No acute issues overnight. Objective - Vital Signs/Intake and Output Vital Signs (last 24 hours): Temp Pulse Resp BP Pulse Ox 97.2 F L 81 20 121/71 100 12/05/17 07:34 12/05/17 08:16 12/05/17 07:34 12/05/17 08:16 12/05/17 07:34 - Medications Medications: Current Medications Acetaminophen (Tylenol 325mg Tab) 975 mg PO Q8 PRN PRN Reason: Pain, Mild (1-3) Last Admin: 11/29/17 10:54 Dose: 975 mg Aspirin (Ecotrin) 81 mg PO DAILY [facility] Last Admin: 12/05/17 08:17 Dose: 81 mg Atorvastatin Calcium (Lipitor) 20 mg PO HS@2200 [facility] Last Admin: 12/04/17 21:31 Dose: 20 mg Epoetin Gonzalo (Procrit) 15,000 unit IV MWF [facility] Last Admin: 12/03/17 15:15 Dose: 15,000 unit Heparin Sodium (Porcine) (Heparin) 5,000 units SC Q8 [facility] PRN Reason: Protocol Last Admin: 12/05/17 05:21 Dose: 5,000 units Insulin Human Regular (Humulin R) 0 units SC ACHS [facility] PRN Reason: Protocol Last Admin: 12/05/17 06:54 Dose: Not Given Megestrol Acetate (Megace) 400 mg PO DAILY [facility] Last Admin: 12/05/17 08:17 Dose: 400 mg Metoprolol Tartrate (Lopressor) 25 mg PO Q12 [facility] Last Admin: 12/05/17 08:16 Dose: 25 mg Ondansetron HCl (Zofran Odt) 4 mg PO Q8H PRN PRN Reason: Nausea/Vomiting Oxycodone HCl (Oxycodone Immediate Release Tab) 5 mg PO Q6 PRN PRN Reason: Pain 4-10 Last Admin: 12/04/17 02:18 Dose: 5 mg Pantoprazole Sodium (Protonix Ec Tab) 40 mg PO DAILY [facility] Last Admin: 12/05/17 08:17 Dose: 40 mg Silver Sulfadiazine (Silvadene 1% 50 Gm) 1 applic TOP BID [facility] Last Admin: 12/05/17 08:16 Dose: 1 applic Vitamin B Complex/Vit C/Folic Acid (Nephro-Jyoti) 1 tab PO DAILY [facility] Last Admin: 12/05/17 08:16 Dose: 1 tab - Labs Labs: 12/04/17 05:25 12/04/17 05:25 - Constitutional Appears: Non-toxic, No Acute Distress, Chronically Ill - Head Exam Head Exam: ATRAUMATIC, NORMOCEPHALIC - Eye Exam Eye Exam: EOMI, PERRL Pupil Exam: NORMAL ACCOMODATION - ENT Exam ENT Exam: Mucous Membranes Moist, Normal Exam - Neck Exam Neck Exam: Full ROM, Normal Inspection - Respiratory Exam Respiratory Exam: Clear to Ausculation Bilateral, NORMAL BREATHING PATTERN. absent: Rhonchi, Wheezes - Cardiovascular Exam Cardiovascular Exam: REGULAR RHYTHM, RRR, +S1, +S2. absent: JVD - GI/Abdominal Exam GI & Abdominal Exam: Soft, Normal Bowel Sounds. absent: Tenderness Additional comments: midline surgical incision, LLQ colostomy right KITA drain - Rectal Exam Rectal Exam: Deferred - Extremities Exam Extremities Exam: Full ROM, Normal Capillary Refill, Normal Inspection. absent : Pedal Edema - Back Exam Back Exam: NORMAL INSPECTION - Neurological Exam Neurological Exam: Alert, Awake, CN II-XII Intact - Psychiatric Exam Psychiatric exam: Normal Affect - Skin Skin Exam: Dry, Normal Color, Warm Assessment and Plan - Assessment and Plan (Free Text) Assessment: 67 yo female with multiple medical problems like ESRD on dialysis,HTN, obesity , history of old CVA in 2011, atrial fibrillation,with history of recent CVA on right MCA distribution was initially admitted to [facility] where she developed GI bleed with hemorrhagic shock and severe ischemic colitis diagnosed with colonoscopy. She also had a cardiac arrest and respiratory failure requiring intubation . After improving she was transferred to acute rehab for physical therapy where she continued to have some episodes of GI bleed. On 11/04 she started to have worsening of rectal bleed , with blood clots per rectum hypotension, fever Tmax 102 and some lower abdominal tenderness. She was admitted to ICU with diagnosis of hypovolemic shock and GI bleed.She underwent Left Colon resection with ileostomy on 11/09. Transfused total 7 unit PRBC. Transferred back to acute rehab for continuation of physical therapy. 1.Deconditioning due to prolonged hospitalization and acute illness and Recent Right MCA stroke 10/24/17 Continue PT/OT in acute rehab on ASA, statin, BP and glycemic control Physiatry on consult plan for d/c to [facility] 2. Recent GI bleed due to Ischemic colitis-- resolved s/p left colon resection with iliostomy Surgical wound healing well and colostomy working well, tolerating diet Received total 7 unit PRBC transfusion with Hgb [address] Yin in 1wee for staple and KITA drain removal Continue renal diet Received total 10 days of empiric antibiotics 3.Recent Hypovolemic shock secondary to GI bleed-- resolved 4. Acute on chronic anemia-stable GI blood loss on top of chronic kidney disease anemia s/p 7 unit PRBC transfusion HG 10 today continue Epogen 5. History of recent cardiac arrest/respiratory arrest 6. ESRD on Dialysis MWF Nephro consulted continue HD as scheduled 7. Paroxysmal Afib back in SR on metoprolol no therapeutic anticoag due to GI bleed on ASA 8. DM ruled out Hgb A1c 6 accuchecks and insulin coverage 9. DVT prophylaxis SCDs on heparin
--- NOTE | 2017-12-05 13:14 | CP.PCM.PN ---
Subjective - Date & Time of Evaluation Date of Evaluation: 12/05/17 Time of Evaluation: 13:13 - Subjective Subjective: Patient stable no chest pain appetite is good Objective - Vital Signs/Intake and Output Vital Signs (last 24 hours): Temp Pulse Resp BP Pulse Ox 97.2 F L 81 20 121/71 100 12/05/17 07:34 12/05/17 08:16 12/05/17 07:34 12/05/17 08:16 12/05/17 07:34 - Medications Medications: Current Medications Acetaminophen (Tylenol 325mg Tab) 975 mg PO Q8 PRN PRN Reason: Pain, Mild (1-3) Last Admin: 11/29/17 10:54 Dose: 975 mg Aspirin (Ecotrin) 81 mg PO DAILY [facility] Last Admin: 12/05/17 08:17 Dose: 81 mg Atorvastatin Calcium (Lipitor) 20 mg PO HS@2200 [facility] Last Admin: 12/04/17 21:31 Dose: 20 mg Epoetin Gonzalo (Procrit) 15,000 unit IV MWF [facility] Last Admin: 12/03/17 15:15 Dose: 15,000 unit Heparin Sodium (Porcine) (Heparin) 5,000 units SC Q8 [facility] PRN Reason: Protocol Last Admin: 12/05/17 13:03 Dose: 5,000 units Insulin Human Regular (Humulin R) 0 units SC ACHS [facility] PRN Reason: Protocol Last Admin: 12/05/17 12:27 Dose: Not Given Megestrol Acetate (Megace) 400 mg PO DAILY [facility] Last Admin: 12/05/17 08:17 Dose: 400 mg Metoprolol Tartrate (Lopressor) 25 mg PO Q12 [facility] Last Admin: 12/05/17 08:16 Dose: 25 mg Ondansetron HCl (Zofran Odt) 4 mg PO Q8H PRN PRN Reason: Nausea/Vomiting Oxycodone HCl (Oxycodone Immediate Release Tab) 5 mg PO Q6 PRN PRN Reason: Pain 4-10 Last Admin: 12/04/17 02:18 Dose: 5 mg Pantoprazole Sodium (Protonix Ec Tab) 40 mg PO DAILY [facility] Last Admin: 12/05/17 08:17 Dose: 40 mg Silver Sulfadiazine (Silvadene 1% 50 Gm) 1 applic TOP BID [facility] Last Admin: 12/05/17 08:16 Dose: 1 applic Vitamin B Complex/Vit C/Folic Acid (Nephro-Jyoti) 1 tab PO DAILY [facility] Last Admin: 12/05/17 08:16 Dose: 1 tab - Labs Labs: 12/04/17 05:25 12/04/17 05:25 - Constitutional Appears: No Acute Distress - ENT Exam ENT Exam: absent: Mucous Membranes Moist - Neck Exam Neck Exam: absent: Lymphadenopathy - Respiratory Exam Respiratory Exam: absent: Chest Wall Tenderness - Cardiovascular Exam Cardiovascular Exam: absent: Gallop, JVD, Rubs - GI/Abdominal Exam GI & Abdominal Exam: Soft, Normal Bowel Sounds - Extremities Exam Extremities Exam: absent: Calf Tenderness - Back Exam Back Exam: absent: CVA tenderness (L), CVA tenderness (R) - Neurological Exam Neurological Exam: Alert - Psychiatric Exam Psychiatric exam: Normal Affect - Skin Skin Exam: absent: Cyanosis Assessment and Plan (1) Chronic kidney disease on chronic dialysis Assessment & Plan: patient is stable clinically,for hemodialysis shortly. GI bleed, ischemic colitis s/p hemicolectomy Diabetic chronic Kidney Disease (E11.22) Hypertensive Chronic Kidney Disease (I12.0) End stage renal disease (N18.6) dependence on hemodialysis (Z99.2) (MWF) via permacath Anemia (D64.9), Hyperphosphatemia (E83.39), Secondary Hyperparathyroidism (E21.1 ), HTN (I12.0) hx of CVA Plan: HD MWF Continue with Nephrovite 1 tab/day. PRBC as needed for anemia. On ESAwith HD phos binders currently on hold, will recheck level BP control with meds as ordered. Patient not on RAAS sony as BP tends to be low Glycemic control, Dialysis consistent diet Further work up/management as per primary team Dose meds/antibiotics (if needed) for ESRD status. Avoid fleets enema/magnesium based laxatives. patient scheduled for hemodialysis shortly after completing physiotherapy in the floor. the rest of the medical history as noted per primary care physician as follow: 67 yo female with multiple medical problems like ESRD on dialysis,HTN, obesity , history of old CVA in 2011, atrial fibrillation,with history of recent CVA on right MCA distribution was initially admitted to [facility] where she developed GI bleed with hemorrhagic shock and severe ischemic colitis diagnosed with colonoscopy. She also had a cardiac arrest and respiratory failure requiring intubation . After improving she was transferred to acute rehab for physical therapy where she continued to have some episodes of GI bleed. On 11/04 she started to have worsening of rectal bleed , with blood clots per rectum hypotension, fever Tmax 102 and some lower abdominal tenderness. Full septic panel was ordered , Cipro and Flagyl given, IVF bolus started. Patient was then admitted to ICU with diagnosis of hypovolemic shock and GI bleed and rule out sepsis. Her colonoscopy performed at [facility] had shown: diffuse severe inflammation with ulcerations in the entire colon, severe ischemic colitis mucosal ulcerations up to 40cm dinorah. GI, surgery and ID consulted Underwent Left Colon resection with ileostomy on 11/09. Transfused total 7 unit PRBC. Hemodynamically stable, iliostomy is working and surgical wound is healing. Status: Acute (2) Gastrointestinal hemorrhage Status: Acute
--- NOTE | 2017-12-05 21:44 | PN ---
PHYSIATRY PROGRESS NOTE DATE: 12/05/2017 SUBJECTIVE: The patient is feeling fine. No acute complaints at present. PHYSICAL EXAMINATION: VITAL SIGNS: Stable. NECK: Supple. CHEST: Symmetrical. HEART: Sounds S1 and S2. ABDOMEN: Abdominal area is benign. EXTREMITIES: No clubbing, cyanosis, or edema. IMPRESSION: Acute cerebrovascular accident, ischemic colitis, sepsis, end-stage renal disease, and diabetes. PLAN: Physical therapy, occupational therapy, recreational therapy, and speech therapy. The patient's discharge is on the . Again, progress note dictated for Dr. Villafuerte. Barak Tran MD
[2017-12-05] MEDS: Epoetin Alfa 20000 UNIT/ML (RENAL DOSE) IV SCH (22:28)
[2017-12-06] MEDS: Multivitamin Vitamin B Complex (Nephro-Vite) Tab PO SCH (09:12)
[2017-12-06] MEDS: Iodoform 1/2inx15ft BOT EXT SCH (09:12)
[2017-12-06] MEDS: Pantoprazole 40 mg EC Tab PO SCH (09:12)
[2017-12-06] MEDS: Silver Sulfadiazine 1% CREAM (50 gm) TOP SCH ×2 (09:13→16:32)
[2017-12-06] MEDS: Megestrol Acetate 40 mg/ml Cup PO SCH (09:15)
--- NOTE | 2017-12-06 10:57 | CP.PCM.PN ---
Subjective - Date & Time of Evaluation Date of Evaluation: 12/06/17 Time of Evaluation: 10:55 - Subjective Subjective: Patient continued to make good progress is feeling much better appetite is good. Objective - Vital Signs/Intake and Output Vital Signs (last 24 hours): Temp Pulse Resp BP Pulse Ox 98.1 F 78 20 148/89 96 12/06/17 07:44 12/06/17 09:13 12/06/17 07:44 12/06/17 09:13 12/06/17 07:44 - Medications Medications: Current Medications Acetaminophen (Tylenol 325mg Tab) 975 mg PO Q8 PRN PRN Reason: Pain, Mild (1-3) Last Admin: 12/05/17 14:09 Dose: 975 mg Aspirin (Ecotrin) 81 mg PO DAILY [facility] Last Admin: 12/06/17 09:13 Dose: 81 mg Atorvastatin Calcium (Lipitor) 20 mg PO HS@2200 [facility] Last Admin: 12/05/17 23:19 Dose: 20 mg Epoetin Gonzalo (Procrit) 15,000 unit IV MWF [facility] Last Admin: 12/05/17 22:28 Dose: 15,000 unit Heparin Sodium (Porcine) (Heparin) 5,000 units SC Q8 [facility] PRN Reason: Protocol Last Admin: 12/06/17 06:39 Dose: 5,000 units Megestrol Acetate (Megace) 400 mg PO DAILY [facility] Last Admin: 12/06/17 09:15 Dose: 400 mg Metoprolol Tartrate (Lopressor) 25 mg PO Q12 [facility] Last Admin: 12/06/17 09:13 Dose: 25 mg Ondansetron HCl (Zofran Odt) 4 mg PO Q8H PRN PRN Reason: Nausea/Vomiting Oxycodone HCl (Oxycodone Immediate Release Tab) 5 mg PO Q6 PRN PRN Reason: Pain 4-10 Last Admin: 12/04/17 02:18 Dose: 5 mg Pantoprazole Sodium (Protonix Ec Tab) 40 mg PO DAILY [facility] Last Admin: 12/06/17 09:12 Dose: 40 mg Silver Sulfadiazine (Silvadene 1% 50 Gm) 1 applic TOP BID [facility] Last Admin: 12/06/17 09:13 Dose: 1 applic Vitamin B Complex/Vit C/Folic Acid (Nephro-Jyoti) 1 tab PO DAILY [facility] Last Admin: 12/06/17 09:12 Dose: 1 tab - Labs Labs: 12/04/17 05:25 12/04/17 05:25 - Constitutional Appears: No Acute Distress - ENT Exam ENT Exam: Mucous Membranes Moist - Neck Exam Neck Exam: absent: Lymphadenopathy - Respiratory Exam Respiratory Exam: NORMAL BREATHING PATTERN. absent: Rales - Cardiovascular Exam Cardiovascular Exam: absent: Gallop, JVD, Rubs - GI/Abdominal Exam GI & Abdominal Exam: Soft, Normal Bowel Sounds - Extremities Exam Extremities Exam: absent: Calf Tenderness - Back Exam Back Exam: absent: CVA tenderness (L), CVA tenderness (R) - Neurological Exam Neurological Exam: Alert - Skin Skin Exam: absent: Cyanosis Assessment and Plan (1) Chronic kidney disease on chronic dialysis Assessment & Plan: patient is stable clinically,for hemodialysis tomorrow GI bleed, ischemic colitis s/p hemicolectomy Diabetic chronic Kidney Disease (E11.22) Hypertensive Chronic Kidney Disease (I12.0) End stage renal disease (N18.6) dependence on hemodialysis (Z99.2) (MWF) via permacath Anemia (D64.9), Hyperphosphatemia (E83.39), Secondary Hyperparathyroidism (E21.1 ), HTN (I12.0) hx of CVA Plan: HD MWF Continue with Nephrovite 1 tab/day. PRBC as needed for anemia. On ESAwith HD phos binders currently on hold, will recheck level BP control with meds as ordered. Patient not on RAAS sony as BP tends to be low Glycemic control, Dialysis consistent diet Further work up/management as per primary team Dose meds/antibiotics (if needed) for ESRD status. Avoid fleets enema/magnesium based laxatives. patient scheduled for hemodialysis shortly after completing physiotherapy in the floor. 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 She also had a cardiac arrest and respiratory failure requiring intubation . After improving she was transferred to acute rehab for physical therapy where she continued to have some episodes of GI bleed. On 11/04 she started to have worsening of rectal bleed , with blood clots per rectum hypotension, fever Tmax 102 and some lower abdominal tenderness. Full septic panel was ordered , Cipro and Flagyl given, IVF bolus started. Patient was then admitted to ICU with diagnosis of hypovolemic shock and GI bleed and rule out sepsis. Her colonoscopy performed at [facility] had shown: diffuse severe inflammation with ulcerations in the entire colon, severe ischemic colitis mucosal ulcerations up to 40cm dinorah. GI, surgery and ID consulted Underwent Left Colon resection with ileostomy on 11/09. Transfused total 7 unit PRBC. Hemodynamically stable, iliostomy is working and surgical wound is healing. Status: Acute (2) Gastrointestinal hemorrhage Status: Acute
--- NOTE | 2017-12-07 07:59 | CP.PCM.CON ---
History of Present Illness - History of Present Illness History of Present Illness: Pt seen for supportive therapy [id number]. pt discussed therapy gains and desire for continued gains and increased recovery. Pt spoke of her future, concerns over who will care for her and capacity for independence. Support and reassurance provided, pt presented with multiple possible options to reduce her distress. plan: Continued Sup therapy Past Patient History - Infectious Disease Hx of Infectious Diseases: None - Tetanus Immunizations Tetanus Immunization: Up to Date - Past Medical History & Family History Past Medical History?: Yes - Past Social History Smoking Status: Never Smoked Alcohol: None Drugs: Denies Home Situation {Lives}: With Family - CARDIAC Hx Cardiac Disorders: Yes Hx Hypertension: Yes - PULMONARY Hx Asthma: Yes Hx Bronchitis: No Hx Chronic Obstructive Pulmonary Disease (COPD): No Hx Emphysema: No Hx Pneumonia: No Hx Sleep Apnea: No - NEUROLOGICAL HX Cerebrovascular Accident: Yes (2011;2017) - HEENT Hx HEENT Problems: No Hx Cataracts: Yes (Cataract surgery June 2017) - RENAL Hx Chronic Kidney Disease: Yes Hx Dialysis: Yes Type of Dialysis Access: permacath Date of Last Dialysis Treatment: 11/21/17 Hx Kidney Stones: No Hx Renal Failure: Yes - ENDOCRINE/METABOLIC Hx Diabetes Mellitus Type 2: Yes - HEMATOLOGICAL/ONCOLOGICAL Hx Anemia: Yes (secondary to rectal bleeding-resolved.) Hx Sickle Cell Disease: No - INTEGUMENTARY Hx Dermatological Problems: No - MUSCULOSKELETAL/RHEUMATOLOGICAL Hx Falls: No - GASTROINTESTINAL Hx Bowel Surgery: Yes Hx Colitis: Yes (Ischemic colitis) Hx Crohn's Disease: No Hx Diverticulitis: Yes Hx Gall Bladder Disease: No Hx Ileostomy: Yes (2017) Hx Pancreatitis: No - GENITOURINARY/GYNECOLOGICAL Hx Sexually Transmitted Disorders: No - PSYCHIATRIC Hx Substance Use: No - SURGICAL HISTORY Hx Appendectomy: No Hx Cholecystectomy: No Hx Coronary Stent: No Other/Comment: Right breast Lumpectomy 1973 - ANESTHESIA Hx Anesthesia: Yes Hx Anesthesia Reactions: No Hx Malignant Hyperthermia: No Meds Allergies/Adverse Reactions: Allergies Allergy/AdvReac Type Severity Reaction Status Date / Time Latex, Natural Rubber Allergy Unknown RASH Verified 10/26/17 14:13 - Medications Medications: Current Medications Acetaminophen (Tylenol 325mg Tab) 975 mg PO Q8 PRN PRN Reason: Pain, Mild (1-3) Last Admin: 12/05/17 14:09 Dose: 975 mg Aspirin (Ecotrin) 81 mg PO DAILY [facility] Last Admin: 12/06/17 09:13 Dose: 81 mg Atorvastatin Calcium (Lipitor) 20 mg PO HS@2200 [facility] Last Admin: 12/06/17 22:01 Dose: 20 mg Epoetin Gonzalo (Procrit) 15,000 unit IV MWF [facility] Last Admin: 12/05/17 22:28 Dose: 15,000 unit Heparin Sodium (Porcine) (Heparin) 5,000 units SC Q8 [facility] PRN Reason: Protocol Last Admin: 12/07/17 06:10 Dose: 5,000 units Megestrol Acetate (Megace) 400 mg PO DAILY [facility] Last Admin: 12/06/17 09:15 Dose: 400 mg Metoprolol Tartrate (Lopressor) 25 mg PO Q12 [facility] Ondansetron HCl (Zofran Odt) 4 mg PO Q8H PRN PRN Reason: Nausea/Vomiting Oxycodone HCl (Oxycodone Immediate Release Tab) 5 mg PO Q6 PRN PRN Reason: Pain 4-10 Last Admin: 12/04/17 02:18 Dose: 5 mg Pantoprazole Sodium (Protonix Ec Tab) 40 mg PO DAILY [facility] Last Admin: 12/06/17 09:12 Dose: 40 mg Silver Sulfadiazine (Silvadene 1% 50 Gm) 1 applic TOP BID [facility] Last Admin: 12/06/17 16:32 Dose: 1 applic Vitamin B Complex/Vit C/Folic Acid (Nephro-Jyoti) 1 tab PO DAILY [facility] Last Admin: 12/06/17 09:12 Dose: 1 tab Results - Vital Signs Recent Vital Signs: Last Vital Signs Temp 97.8 F 12/06/17 19:43 Pulse 98 H 12/07/17 00:00 Resp 20 12/07/17 00:00 BP 102/60 12/07/17 00:00 Pulse Ox 99 12/07/17 00:00 - Labs Result Diagrams: 12/04/17 05:25 12/04/17 05:25 Labs: Laboratory Results - last 24 hr 12/06/17 11:16 POC Glucose (mg/dL) 127 H
[2017-12-07] MEDS: Iodoform 1/2inx15ft BOT EXT SCH (08:30)
[2017-12-07] MEDS: Silver Sulfadiazine 1% CREAM (50 gm) TOP SCH ×2 (08:31→16:02)
[2017-12-07] MEDS: Multivitamin Vitamin B Complex (Nephro-Vite) Tab PO SCH (08:31)
[2017-12-07] MEDS: Megestrol Acetate 40 mg/ml Cup PO SCH (08:31)
[2017-12-07] MEDS: Pantoprazole 40 mg EC Tab PO SCH (08:32)
[2017-12-07] MEDS: Epoetin Alfa 20000 UNIT/ML (RENAL DOSE) IV SCH ×3 (08:32→17:29)
--- NOTE | 2017-12-07 13:46 | CP.PCM.PN ---
Subjective - Date & Time of Evaluation Date of Evaluation: 12/07/17 Time of Evaluation: 10:00 - Subjective Subjective: Patient was seen and examined at bedside. Continues to feel well. Participating with PT. Hemodynamically stable currently. No new complaints. Objective - Vital Signs/Intake and Output Vital Signs (last 24 hours): Temp Pulse Resp BP Pulse Ox 98.2 F 94 H 20 113/47 L 96 12/07/17 08:26 12/07/17 08:26 12/07/17 08:26 12/07/17 08:26 12/07/17 08:26 - Medications Medications: Current Medications Acetaminophen (Tylenol 325mg Tab) 975 mg PO Q8 PRN PRN Reason: Pain, Mild (1-3) Last Admin: 12/05/17 14:09 Dose: 975 mg Aspirin (Ecotrin) 81 mg PO DAILY [facility] Last Admin: 12/07/17 08:30 Dose: 81 mg Atorvastatin Calcium (Lipitor) 20 mg PO HS@2200 [facility] Last Admin: 12/06/17 22:01 Dose: 20 mg Epoetin Gonzalo (Procrit) 15,000 unit IV MWF [facility] Last Admin: 12/07/17 08:32 Dose: 15,000 unit Heparin Sodium (Porcine) (Heparin) 5,000 units SC Q8 [facility] PRN Reason: Protocol Last Admin: 12/07/17 13:06 Dose: 5,000 units Megestrol Acetate (Megace) 400 mg PO DAILY [facility] Last Admin: 12/07/17 08:31 Dose: 400 mg Metoprolol Tartrate (Lopressor) 25 mg PO Q12 [facility] Last Admin: 12/07/17 08:31 Dose: Not Given Ondansetron HCl (Zofran Odt) 4 mg PO Q8H PRN PRN Reason: Nausea/Vomiting Oxycodone HCl (Oxycodone Immediate Release Tab) 5 mg PO Q6 PRN PRN Reason: Pain 4-10 Last Admin: 12/04/17 02:18 Dose: 5 mg Pantoprazole Sodium (Protonix Ec Tab) 40 mg PO DAILY [facility] Last Admin: 12/07/17 08:32 Dose: 40 mg Silver Sulfadiazine (Silvadene 1% 50 Gm) 1 applic TOP BID [facility] Last Admin: 12/07/17 08:31 Dose: 1 applic Vitamin B Complex/Vit C/Folic Acid (Nephro-Jyoti) 1 tab PO DAILY [facility] Last Admin: 12/07/17 08:31 Dose: 1 tab - Labs Labs: 12/04/17 05:25 12/04/17 05:25 - Additional Findings Additional findings: Physical exam: Constitutional- cooperative, awake, alert Head- NCAT, PERRL Eye- PERRL, EOMI ENT- normal exam, MMM. Neck- normal inspection, supple, no JVD Respiratory- CTAB, no wheezes rales rhonchi Cardiovascular- RRR, +S1, +S2 no MRG GI/Abdominal- +LLQ colostomy draining brown stool. + right KITA drain. + midline incision. 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 She also had a cardiac arrest and respiratory failure requiring intubation . After improving she was transferred to acute rehab for physical therapy where she continued to have some episodes of GI bleed. On 11/04 she started to have worsening of rectal bleed , with blood clots per rectum hypotension, fever Tmax 102 and some lower abdominal tenderness. She was admitted to ICU with diagnosis of hypovolemic shock and GI bleed.She underwent Left Colon resection with ileostomy on 11/09. Transfused total 7 unit PRBC. Transferred back to acute rehab for continuation of physical therapy. 1.Deconditioning due to prolonged hospitalization and acute illness and Recent Right MCA stroke 10/24/17 Continue PT/OT in acute rehab on ASA, statin, BP and glycemic control Physiatry on consult plan for d/c to [facility] 2. Recent GI bleed due to Ischemic colitis-- resolved s/p left colon resection with iliostomy Surgical wound healing well and colostomy working well, tolerating diet Received total 7 unit PRBC transfusion with Hgb [address] Yin in 1wee for staple and KITA drain removal Continue renal diet Received total 10 days of empiric antibiotics 3.Recent Hypovolemic shock secondary to GI bleed-- resolved 4. Acute on chronic anemia-stable GI blood loss on top of chronic kidney disease anemia s/p 7 unit PRBC transfusion HG 10 today continue Epogen 5. History of recent cardiac arrest/respiratory arrest 6. ESRD on Dialysis MWF Nephro consulted continue HD as scheduled 7. Paroxysmal Afib back in SR on metoprolol no therapeutic anticoag due to GI bleed on ASA 8. DM ruled out Hgb A1c 6 accuchecks and insulin coverage 9. Adjustment disorder Acute Consultation with psychology Continue Supportive therapy 10. DVT prophylaxis SCDs on heparin
--- NOTE | 2017-12-07 14:16 | CP.PCM.PN ---
Subjective - Date & Time of Evaluation Date of Evaluation: 12/07/17 Time of Evaluation: 14:17 - Subjective Subjective: Patient is out of bed sitting in the chair awake and conscious and eating very well no nausea no vomiting no chest pain Objective - Vital Signs/Intake and Output Vital Signs (last 24 hours): Temp Pulse Resp BP Pulse Ox 98.2 F 94 H 20 113/47 L 96 12/07/17 08:26 12/07/17 08:26 12/07/17 08:26 12/07/17 08:26 12/07/17 08:26 - Medications Medications: Current Medications Acetaminophen (Tylenol 325mg Tab) 975 mg PO Q8 PRN PRN Reason: Pain, Mild (1-3) Last Admin: 12/05/17 14:09 Dose: 975 mg Aspirin (Ecotrin) 81 mg PO DAILY [facility] Last Admin: 12/07/17 08:30 Dose: 81 mg Atorvastatin Calcium (Lipitor) 20 mg PO HS@2200 [facility] Last Admin: 12/06/17 22:01 Dose: 20 mg Epoetin Gonzalo (Procrit) 15,000 unit IV MWF [facility] Last Admin: 12/07/17 08:32 Dose: 15,000 unit Heparin Sodium (Porcine) (Heparin) 5,000 units SC Q8 [facility] PRN Reason: Protocol Last Admin: 12/07/17 13:06 Dose: 5,000 units Megestrol Acetate (Megace) 400 mg PO DAILY [facility] Last Admin: 12/07/17 08:31 Dose: 400 mg Metoprolol Tartrate (Lopressor) 25 mg PO Q12 [facility] Last Admin: 12/07/17 08:31 Dose: Not Given Ondansetron HCl (Zofran Odt) 4 mg PO Q8H PRN PRN Reason: Nausea/Vomiting Oxycodone HCl (Oxycodone Immediate Release Tab) 5 mg PO Q6 PRN PRN Reason: Pain 4-10 Last Admin: 12/04/17 02:18 Dose: 5 mg Pantoprazole Sodium (Protonix Ec Tab) 40 mg PO DAILY [facility] Last Admin: 12/07/17 08:32 Dose: 40 mg Silver Sulfadiazine (Silvadene 1% 50 Gm) 1 applic TOP BID [facility] Last Admin: 12/07/17 08:31 Dose: 1 applic Vitamin B Complex/Vit C/Folic Acid (Nephro-Jyoti) 1 tab PO DAILY [facility] Last Admin: 12/07/17 08:31 Dose: 1 tab - Labs Labs: 12/04/17 05:25 12/04/17 05:25 - Constitutional Appears: No Acute Distress - ENT Exam ENT Exam: Mucous Membranes Moist - Neck Exam Neck Exam: absent: Lymphadenopathy - Respiratory Exam Respiratory Exam: NORMAL BREATHING PATTERN. absent: Chest Wall Tenderness - Cardiovascular Exam Cardiovascular Exam: absent: Gallop, JVD, Rubs - GI/Abdominal Exam GI & Abdominal Exam: Soft, Normal Bowel Sounds - Extremities Exam Extremities Exam: absent: Calf Tenderness - Back Exam Back Exam: absent: CVA tenderness (L), CVA tenderness (R) - Neurological Exam Neurological Exam: Alert - Psychiatric Exam Psychiatric exam: Normal Affect - Skin Skin Exam: absent: Cyanosis Assessment and Plan (1) Chronic kidney disease on chronic dialysis Assessment & Plan: ESRD scheduled to have hemodialysis shortly. order in place Patient is out of bed sitting in the chair awake and conscious and eating very well no nausea no vomiting no chest pain patient is stable clinically,. GI bleed, ischemic colitis s/p hemicolectomy Diabetic chronic Kidney Disease (E11.22) Hypertensive Chronic Kidney Disease (I12.0) End stage renal disease (N18.6) dependence on hemodialysis (Z99.2) (MWF) via permacath Anemia (D64.9), Hyperphosphatemia (E83.39), Secondary Hyperparathyroidism (E21.1 ), HTN (I12.0) hx of CVA Plan: HD MWF Continue with Nephrovite 1 tab/day. PRBC as needed for anemia. On ESAwith HD phos binders currently on hold, will recheck level BP control with meds as ordered. Patient not on RAAS sony as BP tends to be low Glycemic control, Dialysis consistent diet Further work up/management as per primary team Dose meds/antibiotics (if needed) for ESRD status. Avoid fleets enema/magnesium based laxatives. patient scheduled for hemodialysis shortly after completing physiotherapy in the floor. 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 She also had a cardiac arrest and respiratory failure requiring intubation . After improving she was transferred to acute rehab for physical therapy where she continued to have some episodes of GI bleed. On 11/04 she started to have worsening of rectal bleed , with blood clots per rectum hypotension, fever Tmax 102 and some lower abdominal tenderness. Full septic panel was ordered , Cipro and Flagyl given, IVF bolus started. Patient was then admitted to ICU with diagnosis of hypovolemic shock and GI bleed and rule out sepsis. Her colonoscopy performed at [facility] had shown: diffuse severe inflammation with ulcerations in the entire colon, severe ischemic colitis mucosal ulcerations up to 40cm dinorah. GI, surgery and ID consulted Underwent Left Colon resection with ileostomy on 11/09. Transfused total 7 unit PRBC. Hemodynamically stable, iliostomy is working and surgical wound is healing. Status: Acute (2) Gastrointestinal hemorrhage Status: Acute
--- NOTE | 2017-12-07 18:06 | CP.PCM.PCO ---
Additional Comments - Additional Comments Additional Comments: Patient seen and examined. Clinically improving. Patient to follow up with Dr. Dia upon discharge from Rehab facility. Continue Drain and retention sutures until office follow up visit. Discussed plan with patient in detail who understands and agrees with plan. - Further recs as per Dr. [place] PGY1 surgery pager: [phone]
[2017-12-08] MEDS: Megestrol Acetate 40 mg/ml Cup PO SCH (09:01)
[2017-12-08] MEDS: Multivitamin Vitamin B Complex (Nephro-Vite) Tab PO SCH (09:01)
[2017-12-08] MEDS: Silver Sulfadiazine 1% CREAM (50 gm) TOP SCH ×2 (09:01→17:24)
[2017-12-08] MEDS: Iodoform 1/2inx15ft BOT EXT SCH (09:01)
[2017-12-08] MEDS: Pantoprazole 40 mg EC Tab PO SCH (09:04)
--- NOTE | 2017-12-08 09:57 | CP.PCM.PN ---
Subjective - Date & Time of Evaluation Date of Evaluation: 12/05/17 Time of Evaluation: 09:00 - Subjective Subjective: no acute complaints at present Objective - Vital Signs/Intake and Output Vital Signs (last 24 hours): Temp Pulse Resp BP Pulse Ox 98.2 F 81 20 102/57 L 100 12/08/17 08:00 12/08/17 09:04 12/08/17 08:00 12/08/17 09:04 12/08/17 08:00 - Medications Medications: Current Medications Acetaminophen (Tylenol 325mg Tab) 975 mg PO Q8 PRN PRN Reason: Pain, Mild (1-3) Last Admin: 12/07/17 22:31 Dose: 975 mg Aspirin (Ecotrin) 81 mg PO DAILY [facility] Last Admin: 12/08/17 09:01 Dose: 81 mg Atorvastatin Calcium (Lipitor) 20 mg PO HS@2200 [facility] Last Admin: 12/07/17 21:55 Dose: 20 mg Epoetin Gonzalo (Procrit) 15,000 unit IV MWF [facility] Last Admin: 12/07/17 17:29 Dose: Not Given Heparin Sodium (Porcine) (Heparin) 5,000 units SC Q8 [facility] PRN Reason: Protocol Last Admin: 12/08/17 06:35 Dose: 5,000 units Megestrol Acetate (Megace) 400 mg PO DAILY [facility] Last Admin: 12/08/17 09:01 Dose: 400 mg Metoprolol Tartrate (Lopressor) 25 mg PO Q12 [facility] Last Admin: 12/08/17 09:04 Dose: Not Given Ondansetron HCl (Zofran Odt) 4 mg PO Q8H PRN PRN Reason: Nausea/Vomiting Oxycodone HCl (Oxycodone Immediate Release Tab) 5 mg PO Q6 PRN PRN Reason: Pain 4-10 Last Admin: 12/04/17 02:18 Dose: 5 mg Pantoprazole Sodium (Protonix Ec Tab) 40 mg PO DAILY [facility] Last Admin: 12/08/17 09:04 Dose: 40 mg Silver Sulfadiazine (Silvadene 1% 50 Gm) 1 applic TOP BID [facility] Last Admin: 12/08/17 09:01 Dose: 1 applic Vitamin B Complex/Vit C/Folic Acid (Nephro-Jyoti) 1 tab PO DAILY [facility] Last Admin: 06/02/18 09:01 Dose: 1 tab - Labs Labs: 12/04/17 05:25 12/04/17 05:25 - Head Exam Head Exam: ATRAUMATIC, NORMAL INSPECTION, NORMOCEPHALIC - Eye Exam Eye Exam: EOMI, Normal appearance Pupil Exam: NORMAL ACCOMODATION, PERRL - Neck Exam Neck Exam: Full ROM, Normal Inspection - Respiratory Exam Respiratory Exam: Clear to Ausculation Bilateral - Cardiovascular Exam Cardiovascular Exam: REGULAR RHYTHM - GI/Abdominal Exam GI & Abdominal Exam: Soft, Normal Bowel Sounds - Exam External exam: NORMAL EXTERNAL EXAM - Extremities Exam Extremities Exam: Full ROM, Normal Capillary Refill, Normal Inspection - Back Exam Back Exam: NORMAL INSPECTION - Neurological Exam Neurological Exam: Alert, Awake Additional comments: weakness - Psychiatric Exam Psychiatric exam: Normal Affect, Normal Mood - Skin Skin Exam: Dry, Normal Color Assessment and Plan (1) Asthma exacerbation Status: Acute (2) Chronic kidney disease on chronic dialysis Status: Acute (3) Colitis Status: Acute (4) ESRD (end stage renal disease) on dialysis Status: Acute (5) Gastrointestinal hemorrhage Status: Acute (6) Hemorrhage of arteriovenous fistula Assessment & Plan: Acute CVA plan for physical, occupational therapy and rec therapy covering for Dr Villafuerte Status: Acute (7) Hemorrhagic shock Status: Acute
--- NOTE | 2017-12-08 10:01 | CP.PCM.PN ---
Subjective - Date & Time of Evaluation Date of Evaluation: 12/07/17 Time of Evaluation: 08:30 - Subjective Subjective: no acute complaints of any pain Objective - Vital Signs/Intake and Output Vital Signs (last 24 hours): Temp Pulse Resp BP Pulse Ox 98.2 F 81 20 102/57 L 100 12/08/17 08:00 12/08/17 09:04 12/08/17 08:00 12/08/17 09:04 12/08/17 08:00 - Medications Medications: Current Medications Acetaminophen (Tylenol 325mg Tab) 975 mg PO Q8 PRN PRN Reason: Pain, Mild (1-3) Last Admin: 12/07/17 22:31 Dose: 975 mg Aspirin (Ecotrin) 81 mg PO DAILY [facility] Last Admin: 12/08/17 09:01 Dose: 81 mg Atorvastatin Calcium (Lipitor) 20 mg PO HS@2200 [facility] Last Admin: 12/07/17 21:55 Dose: 20 mg Epoetin Gonzalo (Procrit) 15,000 unit IV MWF [facility] Last Admin: 12/07/17 17:29 Dose: Not Given Heparin Sodium (Porcine) (Heparin) 5,000 units SC Q8 [facility] PRN Reason: Protocol Last Admin: 12/08/17 06:35 Dose: 5,000 units Megestrol Acetate (Megace) 400 mg PO DAILY [facility] Last Admin: 12/08/17 09:01 Dose: 400 mg Metoprolol Tartrate (Lopressor) 25 mg PO Q12 [facility] Last Admin: 12/08/17 09:04 Dose: Not Given Ondansetron HCl (Zofran Odt) 4 mg PO Q8H PRN PRN Reason: Nausea/Vomiting Oxycodone HCl (Oxycodone Immediate Release Tab) 5 mg PO Q6 PRN PRN Reason: Pain 4-10 Last Admin: 12/04/17 02:18 Dose: 5 mg Pantoprazole Sodium (Protonix Ec Tab) 40 mg PO DAILY [facility] Last Admin: 12/08/17 09:04 Dose: 40 mg Silver Sulfadiazine (Silvadene 1% 50 Gm) 1 applic TOP BID [facility] Last Admin: 12/08/17 09:01 Dose: 1 applic Vitamin B Complex/Vit C/Folic Acid (Nephro-Jyoti) 1 tab PO DAILY [facility] Last Admin: 12/08/17 09:01 Dose: 1 tab - Labs Labs: 12/04/17 05:25 12/04/17 05:25 - Head Exam Head Exam: ATRAUMATIC, NORMAL INSPECTION, NORMOCEPHALIC - Eye Exam Eye Exam: EOMI, Normal appearance Pupil Exam: NORMAL ACCOMODATION, PERRL - ENT Exam ENT Exam: Mucous Membranes Moist - Neck Exam Neck Exam: Full ROM, Normal Inspection - Respiratory Exam Respiratory Exam: Clear to Ausculation Bilateral, NORMAL BREATHING PATTERN - Cardiovascular Exam Cardiovascular Exam: REGULAR RHYTHM - GI/Abdominal Exam GI & Abdominal Exam: Soft, Normal Bowel Sounds - Rectal Exam Rectal Exam: NORMAL INSPECTION - Exam External exam: NORMAL EXTERNAL EXAM - Extremities Exam Extremities Exam: Normal Inspection - Back Exam Back Exam: NORMAL INSPECTION - Neurological Exam Neurological Exam: Alert, Awake Additional comments: weakness - Psychiatric Exam Psychiatric exam: Normal Affect, Normal Mood - Skin Skin Exam: Dry, Normal Color Assessment and Plan (1) Asthma exacerbation Status: Acute (2) Chronic kidney disease on chronic dialysis Status: Acute (3) Colitis Status: Acute (4) ESRD (end stage renal disease) on dialysis Status: Acute (5) Gastrointestinal hemorrhage Status: Acute (6) Hemorrhage of arteriovenous fistula Assessment & Plan: CVA plan for physical, occupational rec therapy continue with acute rehab covering for DR Villafuerte Status: Acute (7) Hemorrhagic shock Status: Acute
--- NOTE | 2017-12-08 11:11 | CP.PCM.PN ---
Subjective - Date & Time of Evaluation Date of Evaluation: 12/06/17 Time of Evaluation: 10:15 - Subjective Subjective: no acute complaints of neck, back pain Objective - Vital Signs/Intake and Output Vital Signs (last 24 hours): Temp Pulse Resp BP Pulse Ox 98.2 F 81 20 102/57 L 100 12/08/17 08:00 12/08/17 09:04 12/08/17 08:00 12/08/17 09:04 12/08/17 08:00 - Medications Medications: Current Medications Acetaminophen (Tylenol 325mg Tab) 975 mg PO Q8 PRN PRN Reason: Pain, Mild (1-3) Last Admin: 12/07/17 22:31 Dose: 975 mg Aspirin (Ecotrin) 81 mg PO DAILY [facility] Last Admin: 12/08/17 09:01 Dose: 81 mg Atorvastatin Calcium (Lipitor) 20 mg PO HS@2200 [facility] Last Admin: 12/07/17 21:55 Dose: 20 mg Epoetin Gonzalo (Procrit) 15,000 unit IV MWF [facility] Last Admin: 12/07/17 17:29 Dose: Not Given Heparin Sodium (Porcine) (Heparin) 5,000 units SC Q8 [facility] PRN Reason: Protocol Last Admin: 12/08/17 06:35 Dose: 5,000 units Megestrol Acetate (Megace) 400 mg PO DAILY [facility] Last Admin: 12/08/17 09:01 Dose: 400 mg Metoprolol Tartrate (Lopressor) 25 mg PO Q12 [facility] Last Admin: 12/08/17 09:04 Dose: Not Given Ondansetron HCl (Zofran Odt) 4 mg PO Q8H PRN PRN Reason: Nausea/Vomiting Oxycodone HCl (Oxycodone Immediate Release Tab) 5 mg PO Q6 PRN PRN Reason: Pain 4-10 Last Admin: 12/04/17 02:18 Dose: 5 mg Pantoprazole Sodium (Protonix Ec Tab) 40 mg PO DAILY [facility] Last Admin: 12/08/17 09:04 Dose: 40 mg Silver Sulfadiazine (Silvadene 1% 50 Gm) 1 applic TOP BID [facility] Last Admin: 12/08/17 09:01 Dose: 1 applic Vitamin B Complex/Vit C/Folic Acid (Nephro-Jyoti) 1 tab PO DAILY [facility] Last Admin: 12/08/17 09:01 Dose: 1 tab - Labs Labs: 12/04/17 05:25 12/04/17 05:25 - Head Exam Head Exam: ATRAUMATIC, NORMAL INSPECTION, NORMOCEPHALIC - Eye Exam Eye Exam: EOMI, Normal appearance Pupil Exam: NORMAL ACCOMODATION, PERRL - ENT Exam ENT Exam: Mucous Membranes Moist, Normal Exam - Neck Exam Neck Exam: Full ROM, Normal Inspection - Respiratory Exam Respiratory Exam: Clear to Ausculation Bilateral, NORMAL BREATHING PATTERN - Cardiovascular Exam Cardiovascular Exam: REGULAR RHYTHM - GI/Abdominal Exam GI & Abdominal Exam: Normal Bowel Sounds - Rectal Exam Rectal Exam: NORMAL INSPECTION - Exam External exam: NORMAL EXTERNAL EXAM - Extremities Exam Extremities Exam: Full ROM, Normal Inspection - Back Exam Back Exam: NORMAL INSPECTION - Neurological Exam Neurological Exam: Alert, Awake Additional comments: weakness - Psychiatric Exam Psychiatric exam: Normal Affect, Normal Mood - Skin Skin Exam: Normal Color Assessment and Plan (1) Asthma exacerbation Status: Acute (2) Chronic kidney disease on chronic dialysis Status: Acute (3) Colitis Status: Acute (4) ESRD (end stage renal disease) on dialysis Status: Acute (5) Gastrointestinal hemorrhage Status: Acute (6) Hemorrhage of arteriovenous fistula Status: Acute (7) Hemorrhagic shock Status: Acute - Assessment and Plan (Free Text) Assessment: Deconditioning, history of CVa to continue with physical, occupational and rec therapy Monitor labs, vitals and skin. Continue with acute rehab and Dc planning
--- NOTE | 2017-12-08 14:30 | CP.PCM.PN ---
Subjective - Date & Time of Evaluation Date of Evaluation: 12/08/17 Time of Evaluation: 14:29 - Subjective Subjective: Nephrology Consultation Note S: resting comfortably, no complaints Assessment: stable GI bleed, ischemic colitis s/p hemicolectomy Diabetic chronic Kidney Disease (E11.22) Hypertensive Chronic Kidney Disease (I12.0) End stage renal disease (N18.6) dependence on hemodialysis (Z99.2) (MWF) via permacath Anemia (D64.9), Hyperphosphatemia (E83.39), Secondary Hyperparathyroidism (E21.1 ), HTN (I12.0) hx of CVA Plan: HD MWF schedule. Continue with Nephrovite 1 tab/day. PRBC as needed for anemia. On DEYA as epogen with HD monitor phos BP control with meds as ordered. Glycemic control Physical Examination: General Appearance: Comfortable, in no acute respiratory distress, co-operative . Vitals reviewed and noted as below Head; Atraumatic, normocephalic ENT: no ulcers EYES: Eye muscles and extraocular movement intact. Sclera is anicteric. Neck; supple no lymphadenopathy, no thyromegaly or bruit Lungs: Normal respiratory rate. Breath sounds bilateral equal and clear Heart: Normal rate. s1s2 normal. No rub or gallop. Extremities: 1+ edema. No varicose veins Neurological: Patient is awake alert Follows commands Skin: Warm and dry. Normal turgor. No rash. Abdomen: Abdomen is soft. Bowel sounds +. There is no abdominal tenderness, no guarding/rigidity or organomegaly. has left colostomy Psych: limited insight. normal affect/mood MSK: no joint tenderness Objective - Vital Signs/Intake and Output Vital Signs (last 24 hours): Temp Pulse Resp BP Pulse Ox 98.2 F 81 20 102/57 L 100 12/08/17 11:27 12/08/17 09:04 12/08/17 08:00 12/08/17 09:04 12/08/17 08:00 - Medications Medications: Current Medications Acetaminophen (Tylenol 325mg Tab) 975 mg PO Q8 PRN PRN Reason: Pain, Mild (1-3) Last Admin: 12/08/17 11:27 Dose: 975 mg Aspirin (Ecotrin) 81 mg PO DAILY [facility] Last Admin: 12/08/17 09:01 Dose: 81 mg Atorvastatin Calcium (Lipitor) 20 mg PO HS@2200 [facility] Last Admin: 12/07/17 21:55 Dose: 20 mg Epoetin Gonzalo (Procrit) 15,000 unit IV MWF [facility] Last Admin: 12/07/17 17:29 Dose: Not Given Heparin Sodium (Porcine) (Heparin) 5,000 units SC Q8 [facility] PRN Reason: Protocol Last Admin: 12/08/17 06:35 Dose: 5,000 units Megestrol Acetate (Megace) 400 mg PO DAILY [facility] Last Admin: 12/08/17 09:01 Dose: 400 mg Metoprolol Tartrate (Lopressor) 25 mg PO Q12 [facility] Last Admin: 12/08/17 09:04 Dose: Not Given Ondansetron HCl (Zofran Odt) 4 mg PO Q8H PRN PRN Reason: Nausea/Vomiting Oxycodone HCl (Oxycodone Immediate Release Tab) 5 mg PO Q6 PRN PRN Reason: Pain 4-10 Last Admin: 12/04/17 02:18 Dose: 5 mg Pantoprazole Sodium (Protonix Ec Tab) 40 mg PO DAILY [facility] Last Admin: 12/08/17 09:04 Dose: 40 mg Silver Sulfadiazine (Silvadene 1% 50 Gm) 1 applic TOP BID [facility] Last Admin: 12/08/17 09:01 Dose: 1 applic Vitamin B Complex/Vit C/Folic Acid (Nephro-Jyoti) 1 tab PO DAILY [facility] Last Admin: 12/08/17 09:01 Dose: 1 tab - Labs Labs: 12/04/17 05:25 12/04/17 05:25
[2017-12-09] MEDS: Iodoform 1/2inx15ft BOT EXT SCH (08:37)
[2017-12-09] MEDS: Multivitamin Vitamin B Complex (Nephro-Vite) Tab PO SCH (08:38)
[2017-12-09] MEDS: Megestrol Acetate 40 mg/ml Cup PO SCH (08:38)
[2017-12-09] MEDS: Silver Sulfadiazine 1% CREAM (50 gm) TOP SCH ×2 (08:39→17:28)
[2017-12-09] MEDS: Pantoprazole 40 mg EC Tab PO SCH (08:39)
[2017-12-10] MEDS: Iodoform 1/2inx15ft BOT EXT SCH (08:23)
[2017-12-10] MEDS: Pantoprazole 40 mg EC Tab PO SCH (08:24)
[2017-12-10] MEDS: Megestrol Acetate 40 mg/ml Cup PO SCH (08:24)
[2017-12-10] MEDS: Multivitamin Vitamin B Complex (Nephro-Vite) Tab PO SCH (08:24)
[2017-12-10] MEDS: Silver Sulfadiazine 1% CREAM (50 gm) TOP SCH ×2 (08:24→17:27)
[2017-12-10] MEDS: oxyCODONE 5 mg Immediate Release Tab PO PRN (08:29)
--- NOTE | 2017-12-10 11:24 | CP.PCM.PN ---
Subjective - Date & Time of Evaluation Date of Evaluation: 12/10/17 Time of Evaluation: 11:24 - Subjective Subjective: Patient out of bed feeling good Appetite is getting better No nausea or vomiting Objective - Vital Signs/Intake and Output Vital Signs (last 24 hours): Temp Pulse Resp BP Pulse Ox 98.2 F 97 H 20 136/67 97 12/10/17 07:49 12/10/17 08:28 12/10/17 07:49 12/10/17 08:28 12/10/17 07:49 - Medications Medications: Current Medications Acetaminophen (Tylenol 325mg Tab) 975 mg PO Q8 PRN PRN Reason: Pain, Mild (1-3) Last Admin: 12/08/17 11:27 Dose: 975 mg Aspirin (Ecotrin) 81 mg PO DAILY [facility] Last Admin: 12/10/17 08:23 Dose: 81 mg Atorvastatin Calcium (Lipitor) 20 mg PO HS@2200 [facility] Last Admin: 12/09/17 21:26 Dose: 20 mg Epoetin Gonzalo (Procrit) 15,000 unit IV MWF [facility] Last Admin: 12/07/17 17:29 Dose: Not Given Heparin Sodium (Porcine) (Heparin) 5,000 units SC Q8 [facility] PRN Reason: Protocol Last Admin: 12/10/17 06:11 Dose: 5,000 units Megestrol Acetate (Megace) 400 mg PO DAILY [facility] Last Admin: 12/10/17 08:24 Dose: 400 mg Metoprolol Tartrate (Lopressor) 25 mg PO Q12 [facility] Last Admin: 12/10/17 08:28 Dose: 25 mg Ondansetron HCl (Zofran Odt) 4 mg PO Q8H PRN PRN Reason: Nausea/Vomiting Oxycodone HCl (Oxycodone Immediate Release Tab) 5 mg PO Q6 PRN PRN Reason: Pain 4-10 Last Admin: 12/10/17 08:29 Dose: 5 mg Pantoprazole Sodium (Protonix Ec Tab) 40 mg PO DAILY [facility] Last Admin: 12/10/17 08:24 Dose: 40 mg Silver Sulfadiazine (Silvadene 1% 50 Gm) 1 applic TOP BID [facility] Last Admin: 12/10/17 08:24 Dose: 1 applic Vitamin B Complex/Vit C/Folic Acid (Nephro-Jyoti) 1 tab PO DAILY [facility] Last Admin: 12/10/17 08:24 Dose: 1 tab - Labs Labs: 12/04/17 05:25 12/04/17 05:25 - Constitutional Appears: No Acute Distress - ENT Exam ENT Exam: Mucous Membranes Moist - Neck Exam Neck Exam: absent: Lymphadenopathy - Respiratory Exam Respiratory Exam: absent: Chest Wall Tenderness - Cardiovascular Exam Cardiovascular Exam: REGULAR RHYTHM. absent: Gallop, JVD, Rubs - GI/Abdominal Exam GI & Abdominal Exam: Soft - Back Exam Back Exam: absent: CVA tenderness (L), CVA tenderness (R) - Neurological Exam Neurological Exam: Alert Assessment and Plan (1) Chronic kidney disease on chronic dialysis Assessment & Plan: Assessment: stable GI bleed, ischemic colitis s/p hemicolectomy Diabetic chronic Kidney Disease (E11.22) Hypertensive Chronic Kidney Disease (I12.0) End stage renal disease (N18.6) dependence on hemodialysis (Z99.2) (MWF) via permacath Anemia (D64.9), Hyperphosphatemia (E83.39), Secondary Hyperparathyroidism (E21.1 ), HTN (I12.0) hx of CVA Plan: HD MWF schedule. Continue with Nephrovite 1 tab/day. PRBC as needed for anemia. On DEYA as epogen with HD monitor phos BP control with meds as ordered. Glycemic control Status: Acute (2) Gastrointestinal hemorrhage Status: Acute
--- NOTE | 2017-12-10 12:10 | CP.PCM.PN ---
Subjective - Date & Time of Evaluation Date of Evaluation: 12/10/17 Time of Evaluation: 10:30 - Subjective Subjective: Patient seen and examined bedside. Hemodynamically stable, afebrile. Denies any pain or discomfort. Participating with PT. Wants to go home on discharge. plan for [facility] 12/13 Objective - Vital Signs/Intake and Output Vital Signs (last 24 hours): Temp Pulse Resp BP Pulse Ox 98.2 F 97 H 20 136/67 97 12/10/17 07:49 12/10/17 08:28 12/10/17 07:49 12/10/17 08:28 12/10/17 07:49 - Medications Medications: Current Medications Acetaminophen (Tylenol 325mg Tab) 975 mg PO Q8 PRN PRN Reason: Pain, Mild (1-3) Last Admin: 12/08/17 11:27 Dose: 975 mg Aspirin (Ecotrin) 81 mg PO DAILY [facility] Last Admin: 12/10/17 08:23 Dose: 81 mg Atorvastatin Calcium (Lipitor) 20 mg PO HS@2200 [facility] Last Admin: 12/09/17 21:26 Dose: 20 mg Epoetin Gonzalo (Procrit) 15,000 unit IV MWF [facility] Last Admin: 12/07/17 17:29 Dose: Not Given Heparin Sodium (Porcine) (Heparin) 5,000 units SC Q8 [facility] PRN Reason: Protocol Last Admin: 12/10/17 06:11 Dose: 5,000 units Megestrol Acetate (Megace) 400 mg PO DAILY [facility] Last Admin: 12/10/17 08:24 Dose: 400 mg Metoprolol Tartrate (Lopressor) 25 mg PO Q12 [facility] Last Admin: 12/10/17 08:28 Dose: 25 mg Ondansetron HCl (Zofran Odt) 4 mg PO Q8H PRN PRN Reason: Nausea/Vomiting Oxycodone HCl (Oxycodone Immediate Release Tab) 5 mg PO Q6 PRN PRN Reason: Pain 4-10 Last Admin: 12/10/17 08:29 Dose: 5 mg Pantoprazole Sodium (Protonix Ec Tab) 40 mg PO DAILY [facility] Last Admin: 12/10/17 08:24 Dose: 40 mg Silver Sulfadiazine (Silvadene 1% 50 Gm) 1 applic TOP BID [facility] Last Admin: 12/10/17 08:24 Dose: 1 applic Vitamin B Complex/Vit C/Folic Acid (Nephro-Jyoit) 1 tab PO DAILY [facility] Last Admin: 12/10/17 08:24 Dose: 1 tab - Labs Labs: 12/04/17 05:25 12/04/17 05:25 - Constitutional Appears: Non-toxic, No Acute Distress - Head Exam Head Exam: ATRAUMATIC, NORMAL INSPECTION, NORMOCEPHALIC - Eye Exam Eye Exam: EOMI, PERRL Pupil Exam: NORMAL ACCOMODATION - ENT Exam ENT Exam: Mucous Membranes Moist, Normal Exam - Neck Exam Neck Exam: Full ROM, Normal Inspection - Respiratory Exam Respiratory Exam: Clear to Ausculation Bilateral, NORMAL BREATHING PATTERN. absent: Rales, Rhonchi, Wheezes - Cardiovascular Exam Cardiovascular Exam: REGULAR RHYTHM, RRR, +S1, +S2. absent: JVD - GI/Abdominal Exam GI & Abdominal Exam: Soft, Normal Bowel Sounds. absent: Distended, Guarding, Rigid, Tenderness, Rebound Additional comments: midline surgical incision healed well , with henry in place LLQ colostomy looks good RLQ KITA drain in place with minimal output - Rectal Exam Rectal Exam: Deferred - Extremities Exam Extremities Exam: Full ROM, Normal Capillary Refill, Normal Inspection. 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 She also had a cardiac arrest and respiratory failure requiring intubation . After improving she was transferred to acute rehab for physical therapy where she continued to have some episodes of GI bleed. On 11/04 she started to have worsening of rectal bleed , with blood clots per rectum hypotension, fever Tmax 102 and some lower abdominal tenderness. She was admitted to ICU with diagnosis of hypovolemic shock and GI bleed.She underwent Left Colon resection with ileostomy on 11/09. Transfused total 7 unit PRBC. Transferred back to acute rehab for continuation of physical therapy. At present in acute rehab, much improved 1.Deconditioning due to prolonged hospitalization and acute illness and Recent Right MCA stroke 10/24/17 Continue PT/OT in acute rehab. Plan for d/c to [facility] ( [facility] ) 12/13 on ASA, statin, BP and glycemic control Physiatry on consult 2. Recent GI bleed due to Ischemic colitis-- resolved s/p left colon resection with iliostomy Surgical wound healing well and colostomy working well, tolerating diet Received total 7 unit PRBC transfusion with Hgb [address] Yin before discharge for staple and KITA drain removal Continue renal diet Received total 10 days of empiric antibiotics 3.Recent Hypovolemic shock secondary to GI bleed-- resolved 4. Acute on chronic anemia-stable GI blood loss on top of chronic kidney disease anemia s/p 7 unit PRBC transfusion HG 10 continue Epogen 5. History of recent cardiac arrest/respiratory arrest 6. ESRD on Dialysis MWF Nephro consulted continue HD as scheduled 7. Paroxysmal Afib back in SR on metoprolol no therapeutic anticoag due to GI bleed on ASA 8. DM ruled out Hgb A1c 6 accuchecks and insulin coverage 9. Adjustment disorder Acute Consultation with psychology appreciated Will brad psych consult Continue Supportive therapy 10. DVT prophylaxis SCDs on heparin
[2017-12-10] MEDS: Epoetin Alfa 20000 UNIT/ML (RENAL DOSE) IV SCH (16:03)
[2017-12-11] MEDS: Silver Sulfadiazine 1% CREAM (50 gm) TOP SCH ×2 (08:16→17:05)
[2017-12-11] MEDS: Pantoprazole 40 mg EC Tab PO SCH (08:17)
[2017-12-11] MEDS: Megestrol Acetate 40 mg/ml Cup PO SCH (08:17)
[2017-12-11] MEDS: Multivitamin Vitamin B Complex (Nephro-Vite) Tab PO SCH (08:17)
[2017-12-11] MEDS: Iodoform 1/2inx15ft BOT EXT SCH (08:18)
--- NOTE | 2017-12-11 08:41 | PCM.RRT ---
<Kathy Reid - Last Filed: 12/11/17 08:39> TIMBER HEWER Nurse Assessment - Situation Location: [address] [place] [address] Room Number: 621 TIMBER HEWER Reason for Call: Hypotension TIMBER HEWER Called By: RN - IV IV Inserted during TIMBER HEWER?: No - Respiratory Oxygen Delivery Method: Room Air Received Nebulizer Treatments: No Was the Patient Ventilated with Bag/Mask 100% O2?: No Secretions Suctioned?: No Was the Patient Intubated?: No Was the Patient Placed on a Ventilator?: No - Ventilator Settings Ventilator Respiratory Rate Settin Ventilator Tidal Volume Settin - Medication Medications Administered During TIMBER HEWER: none - Diagnostic Test Ordered EKG: No Chest X-Ray: No CT Scan: No CPR started during TIMBER HEWER?: No - Vital Signs Vital Signs: Rapid Response Vital Sign Blood Pressure 80/53 Pulse Rate 95 Respiratory Rate 13 Temperature 97.6 F Oxygen Saturation 100 - Sepsis Screen Part 1 Sepsis Screen Part 1: Hypotensive - Time TIMBER HEWER Ended Time TIMBER HEWER Ended: 07:55 - Vital Signs at end of TIMBER HEWER Vital Signs at end of TIMBER HEWER: Rapid Response End Vital Sign Blood Pressure 117/59 Pulse Rate 95 Respiratory Rate 15 Temperature 97.7 F O2 Sat by Pulse Oximetry 100 - Recommendations TIMBER HEWER Level of Care Recommendations: Remain in current setting I.Reason for TIMBER HEWER - A) Acute Change in Patient: (Select all that apply): Staff member or family is worried about patient ( hypotensive ) - Neurological Status (Select all that apply): Alert, Responsive, Oriented, Verbal - Constitutional Appears: No Acute Distress - Head Head Exam: ATRAUMATIC, NORMOCEPHALIC - Eyes Eye Exam: EOMI - Respiratory Exam Respiratory Exam: Clear to Ausculation Bilateral, NORMAL BREATHING PATTERN. absent: Wheezes - Cardiovascular Exam Cardiovascular Exam: Irregular Rhythm, +S1, +S2 - GI/Abdominal Exam GI & Abdominal Exam: Soft, Hyperactive Bowel Sounds Additional comments: ex lap-henry in tact- no discharge noted from wound colostomy in the LLQ with small amount of brown stool noted in the bag RLQ has KITA drainage intact with brown-purulent fluid - Neurological Exam Neurological Exam: Alert, Awake - Extremities Exam Extremities Exam: absent: Calf Tenderness Additional comments: stockings b/l mild edema b/l up to the mid-canales Plan - Assessment of Findings&Treatment Plan 67 YO female with PMH of ESRD on HD, HTN, CVA, a fib, was seen in [facility] for GI bleeding with severe ischemic colitis was transferred to acute rehab. TIMBER HEWER was called today for hypotension by RN. [facility]BER [facility] team arrived by bedside with Dr. Yuen. Pt was noted to be asymptomatic. Hypotension -initial bp was 78/53, subsequent bp 117/57 -likely 2/2 to volume depletion -meds were reviewed -decrease Lopressor 25mg to 12.5mg BID -hold med if systolic bp <110 -continue to monitor vitals <Dominga Yuen - Last Filed: 12/11/17 16:46> TIMBER HEWER Nurse Assessment - Vital Signs Vital Signs: Rapid Response Vital Sign Blood Pressure 80/53 Pulse Rate 95 Respiratory Rate 13 Temperature 97.6 F Oxygen Saturation 100 - Vital Signs at end of TIMBER HEWER Vital Signs at end of TIMBER HEWER: Rapid Response End Vital Sign Blood Pressure 117/59 Pulse Rate 95 Respiratory Rate 15 Temperature 97.7 F O2 Sat by Pulse Oximetry 100 Attending/Attestation - Attestation I have personally seen and examined this patient.: Yes I have fully participated in the care of the patient.: Yes I have reviewed all pertinent clinical information, including history, physical exam and plan: Yes Notes (Text): TIMBER HEWER called bec of Hypotension Pt is asymptomatic rpt VS without intervention - GINA went up to systolic 90s then further went up to 117/59 we will monitor pt closely rpt labs cbc , BMP
--- NOTE | 2017-12-11 10:29 | CP.PCM.PN ---
Subjective - Date & Time of Evaluation Date of Evaluation: 12/11/17 Time of Evaluation: 10:28 - Subjective Subjective: Patient appeared to be comfortable receiving physiotherapy Objective - Vital Signs/Intake and Output Vital Signs (last 24 hours): Temp Pulse Resp BP Pulse Ox 97.2 F L 95 H 18 104/65 97 12/11/17 09:00 12/11/17 09:00 12/11/17 09:00 12/11/17 09:00 12/11/17 07:25 - Medications Medications: Current Medications Acetaminophen (Tylenol 325mg Tab) 975 mg PO Q8 PRN PRN Reason: Pain, Mild (1-3) Last Admin: 12/08/17 11:27 Dose: 975 mg Aspirin (Ecotrin) 81 mg PO DAILY [facility] Last Admin: 12/11/17 08:17 Dose: 81 mg Atorvastatin Calcium (Lipitor) 20 mg PO HS@2200 [facility] Last Admin: 12/10/17 21:51 Dose: 20 mg Epoetin Gonzalo (Procrit) 15,000 unit IV MWF [facility] Last Admin: 12/10/17 16:03 Dose: 15,000 unit Heparin Sodium (Porcine) (Heparin) 5,000 units SC Q8 [facility] PRN Reason: Protocol Last Admin: 12/11/17 06:33 Dose: 5,000 units Megestrol Acetate (Megace) 400 mg PO DAILY [facility] Last Admin: 12/11/17 08:17 Dose: 400 mg Metoprolol Tartrate (Lopressor) 12.5 mg PO Q12 [facility] Last Admin: 12/11/17 08:18 Dose: Not Given Ondansetron HCl (Zofran Odt) 4 mg PO Q8H PRN PRN Reason: Nausea/Vomiting Oxycodone HCl (Oxycodone Immediate Release Tab) 5 mg PO Q6 PRN PRN Reason: Pain 4-10 Last Admin: 12/10/17 08:29 Dose: 5 mg Pantoprazole Sodium (Protonix Ec Tab) 40 mg PO DAILY [facility] Last Admin: 12/11/17 08:17 Dose: 40 mg Silver Sulfadiazine (Silvadene 1% 50 Gm) 1 applic TOP BID [facility] Last Admin: 12/11/17 08:16 Dose: 1 applic Vitamin B Complex/Vit C/Folic Acid (Nephro-Jyoti) 1 tab PO DAILY [facility] Last Admin: 12/11/17 08:17 Dose: 1 tab - Labs Labs: 12/04/17 05:25 12/04/17 05:25 - Constitutional Appears: No Acute Distress - ENT Exam ENT Exam: absent: Mucous Membranes Dry - Neck Exam Neck Exam: absent: Lymphadenopathy - Respiratory Exam Respiratory Exam: NORMAL BREATHING PATTERN - Extremities Exam Extremities Exam: absent: Calf Tenderness - Back Exam Back Exam: absent: CVA tenderness (L), CVA tenderness (R) - Neurological Exam Neurological Exam: Alert Assessment and Plan (1) Chronic kidney disease on chronic dialysis Assessment & Plan: Assessment: stable GI bleed, ischemic colitis s/p hemicolectomy Diabetic chronic Kidney Disease (E11.22) Hypertensive Chronic Kidney Disease (I12.0) End stage renal disease (N18.6) dependence on hemodialysis (Z99.2) (MWF) via permacath Anemia (D64.9), Hyperphosphatemia (E83.39), Secondary Hyperparathyroidism (E21.1 ), HTN (I12.0) hx of CVA Plan: HD MWF schedule. Continue with Nephrovite 1 tab/day. PRBC as needed for anemia. On DEYA as epogen with HD monitor phos BP control with meds as ordered. Glycemic control Status: Acute (2) Gastrointestinal hemorrhage Status: Acute
--- NOTE | 2017-12-11 10:36 | CP.PCM.CON ---
History of Present Illness - History of Present Illness History of Present Illness: Pt is a 67 year old female admitted to [facility] following a CVA. Med history postive for DM, dialysis, infection, recent CVA. pt has no history of previuous psychiatric diagnosis or treatment , [place] , workcurrently retired ed in the [employer] and lives in a home in [place]. She is on the second floor and son in the [employer]. Pt is estranged from . She has another child in the [facility] and child in [place]. Pt reported postive relationship with children/family. she is able to attend to both her ADL'S and instrumental daily activities pt was noted to be depressed by staff when asked , patient reported dysphoria with separation from home and current medical problems pt also reported feeling down at home due to being lonely , reported decreased sleep with early insomnia decreased appetite, , episodes of being tearful, pt however denied feeling hopeless or helpless denied any current suicidal or homicidal ideation, denied perceptual disturbances, denied substance use . Past Patient History - Infectious Disease Hx of Infectious Diseases: None - Tetanus Immunizations Tetanus Immunization: Up to Date - Past Medical History & Family History Past Medical History?: Yes - Past Social History Smoking Status: Never Smoked Alcohol: None Drugs: Denies Home Situation {Lives}: With Family - CARDIAC Hx Cardiac Disorders: Yes Hx Hypertension: Yes - PULMONARY Hx Asthma: Yes Hx Bronchitis: No Hx Chronic Obstructive Pulmonary Disease (COPD): No Hx Emphysema: No Hx Pneumonia: No Hx Sleep Apnea: No - NEUROLOGICAL HX Cerebrovascular Accident: Yes (2011;2017) - HEENT Hx HEENT Problems: No Hx Cataracts: Yes (Cataract surgery June 2017) - RENAL Hx Chronic Kidney Disease: Yes Hx Dialysis: Yes Type of Dialysis Access: permacath Date of Last Dialysis Treatment: 11/21/17 Hx Kidney Stones: No Hx Renal Failure: Yes - ENDOCRINE/METABOLIC Hx Diabetes Mellitus Type 2: Yes - HEMATOLOGICAL/ONCOLOGICAL Hx Anemia: Yes (secondary to rectal bleeding-resolved.) Hx Sickle Cell Disease: No - INTEGUMENTARY Hx Dermatological Problems: No - MUSCULOSKELETAL/RHEUMATOLOGICAL Hx Falls: No - GASTROINTESTINAL Hx Bowel Surgery: Yes Hx Colitis: Yes (Ischemic colitis) Hx Crohn's Disease: No Hx Diverticulitis: Yes Hx Gall Bladder Disease: No Hx Ileostomy: Yes (2017) Hx Pancreatitis: No - GENITOURINARY/GYNECOLOGICAL Hx Sexually Transmitted Disorders: No - PSYCHIATRIC Hx Substance Use: No - SURGICAL HISTORY Hx Appendectomy: No Hx Cholecystectomy: No Hx Coronary Stent: No Other/Comment: Right breast Lumpectomy 1973 - ANESTHESIA Hx Anesthesia: Yes Hx Anesthesia Reactions: No Hx Malignant Hyperthermia: No Meds Allergies/Adverse Reactions: Allergies Allergy/AdvReac Type Severity Reaction Status Date / Time Latex, Natural Rubber Allergy Unknown RASH Verified 10/26/17 14:13 - Medications Medications: Current Medications Acetaminophen (Tylenol 325mg Tab) 975 mg PO Q8 PRN PRN Reason: Pain, Mild (1-3) Last Admin: 12/08/17 11:27 Dose: 975 mg Aspirin (Ecotrin) 81 mg PO DAILY [facility] Last Admin: 12/11/17 08:17 Dose: 81 mg Atorvastatin Calcium (Lipitor) 20 mg PO HS@2200 [facility] Last Admin: 12/10/17 21:51 Dose: 20 mg Epoetin Gonzalo (Procrit) 15,000 unit IV MWF [facility] Last Admin: 12/10/17 16:03 Dose: 15,000 unit Heparin Sodium (Porcine) (Heparin) 5,000 units SC Q8 [facility] PRN Reason: Protocol Last Admin: 12/11/17 06:33 Dose: 5,000 units Megestrol Acetate (Megace) 400 mg PO DAILY [facility] Last Admin: 12/11/17 08:17 Dose: 400 mg Metoprolol Tartrate (Lopressor) 12.5 mg PO Q12 [facility] Last Admin: 12/11/17 08:18 Dose: Not Given Ondansetron HCl (Zofran Odt) 4 mg PO Q8H PRN PRN Reason: Nausea/Vomiting Oxycodone HCl (Oxycodone Immediate Release Tab) 5 mg PO Q6 PRN PRN Reason: Pain 4-10 Last Admin: 12/10/17 08:29 Dose: 5 mg Pantoprazole Sodium (Protonix Ec Tab) 40 mg PO DAILY [facility] Last Admin: 12/11/17 08:17 Dose: 40 mg Silver Sulfadiazine (Silvadene 1% 50 Gm) 1 applic TOP BID [facility] Last Admin: 12/11/17 08:16 Dose: 1 applic Vitamin B Complex/Vit C/Folic Acid (Nephro-Jyoti) 1 tab PO DAILY [facility] Last Admin: 12/11/17 08:17 Dose: 1 tab Physical Exam - Psychiatric Exam Additional comments: pt seen in chair , cooperative well groomed good eye contact , mood reported tired of being in hospital affect full range and appropriate , tearful when talking about being alone at home speech normal thought form coherent denied any current suicidal or homicidal ideation denied perceptual disturbances , alert awake oriented to person and place Results - Vital Signs Recent Vital Signs: Last Vital Signs Temp 97.2 F L 12/11/17 09:00 Pulse 95 H 12/11/17 09:00 Resp 18 12/11/17 09:00 BP 104/65 12/11/17 09:00 Pulse Ox 97 12/11/17 07:25 - Labs Result Diagrams: 12/04/17 05:25 12/04/17 05:25 Assessment & Plan - Assessment and Plan (Free Text) Assessment: mood disorder due to general medical condition Plan: pt would benefit from starting remeron 7.5mg qhs
[2017-12-11] MEDS ORDERED: Sodium Chloride 0.9% 500 ML IV PRN (10:49)
--- NOTE | 2017-12-11 12:22 | CP.PCM.PN ---
Subjective - Date & Time of Evaluation Date of Evaluation: 12/11/17 Time of Evaluation: 12:20 - Subjective Subjective: pt seated at bedside, reports feeling lonely and would like to go home pt had episode of hypotension this morning following HD yesterday, now BP stable patient reassured and encouraged to continue in PT for improvement of ADLs, and also encouraged PO intake given poor consumption of breakfast this morning psych consult yesterday otherwise no cp, sob, calf tenderness patient participating in PT well Objective - Vital Signs/Intake and Output Vital Signs (last 24 hours): Temp Pulse Resp BP Pulse Ox 97.2 F L 95 H 18 104/65 97 12/11/17 09:00 12/11/17 09:00 12/11/17 09:00 12/11/17 09:00 12/11/17 07:25 Intake and Output: Vitals Reviewed GEN: WDWN, alert, cooperative HEENT: NCAT, PERRL, EOMI HEART: RRR, +S1S2, NO MRG LUNG: CTAB, NO WRR ABD: soft, NT, ND, No HSM, No masses EXT: normal pedal pulses, normal capillary refill NEURO: awake, alert SKIN: warm, dry PSYCH: normal mood, normal affect - Medications Medications: Current Medications Acetaminophen (Tylenol 325mg Tab) 975 mg PO Q8 PRN PRN Reason: Pain, Mild (1-3) Last Admin: 12/08/17 11:27 Dose: 975 mg Aspirin (Ecotrin) 81 mg PO DAILY [facility] Last Admin: 12/11/17 08:17 Dose: 81 mg Atorvastatin Calcium (Lipitor) 20 mg PO HS@2200 [facility] Last Admin: 12/10/17 21:51 Dose: 20 mg Epoetin Gonzalo (Procrit) 15,000 unit IV MWF [facility] Last Admin: 12/10/17 16:03 Dose: 15,000 unit Heparin Sodium (Porcine) (Heparin) 5,000 units SC Q8 [facility] PRN Reason: Protocol Last Admin: 12/11/17 06:33 Dose: 5,000 units Sodium Chloride (Sodium Chloride 0.9%) 500 mls @ 125 mls/hr IV .Q4H PRN PRN Reason: SBP lower that 90 Stop: 12/11/17 23:59 Megestrol Acetate (Megace) 400 mg PO DAILY [facility] Last Admin: 12/11/17 08:17 Dose: 400 mg Metoprolol Tartrate (Lopressor) 12.5 mg PO Q12 [facility] Last Admin: 12/11/17 08:18 Dose: Not Given Mirtazapine (Remeron) 7.5 mg PO HS [facility] Ondansetron HCl (Zofran Odt) 4 mg PO Q8H PRN PRN Reason: Nausea/Vomiting Oxycodone HCl (Oxycodone Immediate Release Tab) 5 mg PO Q6 PRN PRN Reason: Pain 4-10 Last Admin: 12/10/17 08:29 Dose: 5 mg Pantoprazole Sodium (Protonix Ec Tab) 40 mg PO DAILY [facility] Last Admin: 12/11/17 08:17 Dose: 40 mg Silver Sulfadiazine (Silvadene 1% 50 Gm) 1 applic TOP BID [facility] Last Admin: 12/11/17 08:16 Dose: 1 applic Vitamin B Complex/Vit C/Folic Acid (Nephro-Jyoti) 1 tab PO DAILY [facility] Last Admin: 12/11/17 08:17 Dose: 1 tab - Labs Labs: 12/04/17 05:25 12/04/17 05:25 Assessment and Plan - Assessment and Plan (Free Text) Plan: 67 yo female with multiple medical problems like ESRD on dialysis, HTN, obesity , history of old CVA in 2011, atrial fibrillation,with history of recent CVA on right MCA distribution was initially admitted to [facility] where she developed GI bleed with hemorrhagic shock and severe ischemic colitis diagnosed with colonoscopy. She also had a cardiac arrest and respiratory failure requiring intubation. After improving she was transferred to acute rehab for physical therapy where she continued to have some episodes of GI bleed. On 11/04 she started to have worsening of rectal bleed , with blood clots per rectum hypotension, fever Tmax 102 and some lower abdominal tenderness. She was admitted to ICU with diagnosis of hypovolemic shock and GI bleed.She underwent Left Colon resection with ileostomy on 11/09. Transfused total 7 unit PRBC. Transferred back to acute rehab for continuation of physical therapy. At present in acute rehab, much improved. 1.Deconditioning due to prolonged hospitalization and acute illness and Recent Right MCA stroke 10/24/17 Continue PT/OT in acute rehab. [facility] 6/7 on ASA, statin, BP and glycemic control Physiatry on consult 2. Recent GI bleed due to Ischemic colitis-- resolved s/p left colon resection with iliostomy Surgical wound healing well and colostomy working well, tolerating diet Received total 7 unit PRBC transfusion with Hgb [address] Yin before discharge for staple and KITA drain removal Continue renal diet Received total 10 days of empiric antibiotics 3.Recent Hypovolemic shock secondary to GI bleed-- resolved 4. Acute on chronic anemia-stable GI blood loss on top of chronic kidney disease anemia s/p 7 unit PRBC transfusion HG 10 continue Epogen 5. History of recent cardiac arrest/respiratory arrest 6. ESRD on Dialysis MWF Nephro consulted continue HD as scheduled 7. Paroxysmal Afib back in SR on metoprolol no therapeutic anticoag due to GI bleed on ASA 8. DM ruled out Hgb A1c 6 accuchecks and insulin coverage 9. Adjustment disorder Acute Consultation with psychology appreciated Will brad psych consult Continue Supportive therapy 10. DVT prophylaxis SCDs on heparin
--- NOTE | 2017-12-11 13:17 | PSY.TMCNF ---
Nursing - Vital Signs Vital Signs (Last 8 hours): Vital Signs 12/11/17 12/11/17 12/11/17 07:25 07:40 08:18 Temperature 97.2 F L Pulse Rate 93 H 95 H Respiratory 18 Rate Blood Pressure 86/49 L 78/40 L 104/65 O2 Sat by Pulse 97 Oximetry 12/11/17 09:00 Temperature 97.2 F L Pulse Rate 95 H Respiratory 18 Rate Blood Pressure 104/65 O2 Sat by Pulse Oximetry Pain: 0 - Precautions: Precautions: Fall Prevention, Cardiac/Pulmonary, Pressure Ulcer - Medications/Other Issues Comment: 0740AM: COOKER MECHANIC called for BP 78/40. Resolved without intervention, BP: 109 /54. Pt tearful and wants to go home because she feels " sad being here ". - (+ ) pending Psychiatry consult. - Consults Comment: Dr. Villafuerte, Dr. Sharma, Dr. Sung, Dr. Goetz - Skin Incision Site: abomen Drainage: Serosanguineous Dressing Status: Clean, Dry, Intact Incision: [place] Intact, Sutures Intact Incision Line Treatment: Cleansed with NSS and gaped area on lower portion of I/ L packed with Iodoform and covered with dry dressing. (+) Fam Smith pn RLQ , min purulent drainage. - Toileting Toileting: Dependent - Bladder Management Bladder Pattern: Incontinent Voiding Method: Bedpan, Diaper Bladder Management: Dependent Frequency of Accidents: >5 - Bowel Management Bowel Pattern: Fecal Management System Bowel Management: Dependent Frequency of Accidents: 0 - Transfers Transfers: Dependent - ADL's ADL's: Maximal Assistance - Pain Management Comments: On Oxycodone PRN - Patient/Family Teaching Comments: -Care post CVA and safety precautions. - Infection control. - Pain management - Goals/Time Frame Comments: Per multidisciplinary care plan and goals - Provider Provider: Angie MONROEN RN CRRN Physical Therapy - Bed Mobility Bed Mobility: Verbal Cues, Moderate Assistance - Transfers Wheelchair to Mat: Verbal Cues, Moderate Assistance, Maximum Assistance Sit to Stand: Verbal Cues, Minimal Assistance, Moderate Assistance Comment: -RW. -patient is capable of performing tasks with decreased assistance but has frequent refusal to do so and reports "I can't do it"; patient actively resists during transfers with active flexion of body/trunk instead of extension - Ambulation Level of Assistance: Minimal Assistance, Moderate Assistance Distance (ft.): 4 Assistive Devices: Rolling Walker Orthoses: n/a Comment: RW x 4 feet with min/mod A for trunk control, close WC follow. -lifts LLE and then places it down in same place or posterior. -limited flexion phase on BLE. -fearful and requires maximal motivation. -forward flexion over walker ; sits down without warning - Stair Negotiation Stairs: Level of Assistance: Not Tested Comment: not appropriate for patient at this time due to poor safety awareness - Standing Balance Static Stand: Minimal Assistance Dynamic Stand: Moderate Assistance, Maximal Assistance - Pain Pain (assessed during therapy session): 0 Management Techniques: Medication Comment: pain in abdominal /incision area - Insight/Carryover Insight/Carryover: Fair - Patient/Family Education Comment: -safety, therapy schedule, therapy goals, stroke recovery, benefits of therapy, body mechanics, therapy POC, use of all call, discharge planning - Assessment/Plan Assessment: Patient continues to lack motivation to participate with this field underwriter and refuses to perform tasks that she has done in the past or even earlier in day with other therapists. Patient actively resist sit to/from stand and is very fearful of standing. Patient is self-limiting and presents with anxiety and fear. Pt would benefit from skilled therapies and medical management in [facility] with a lower intensity of rehabilitation. Pt recommends discharge to [facility] to continue addressing skilled needs. - Goals Timeframe: 7 days Goals: min A with sit to/from stand. mod A for SPT. supine to/from sit with min A. ambulate 15 feet with RW with min A - Provider Therapist: Neyda Rdz PT, DPT License Number: [id number] Occupational Therapy - Arousal/Attention/Orientation Patient Orientation: Person, Place, Time - ADL/IADL Self Feeding: Set-up Help Grooming: Supervision, Verbal Cues, Set-up Help Bathing-Upper Extremity: Verbal Cues, Set-up Help, Moderate Assistance Bathing-Lower Extremity: Verbal Cues, Set-up Help, Maximum Assistance Dressing-Upper Extremity: Verbal Cues, Set-up Help, Minimal Assistance Dressing-Lower Extremity: Verbal Cues, Set-up Help, Moderate Assistance, Maximum Assistance - Sitting Balance Static Sitting: Supervision Dynamic Sitting: Reaches across midline, Reaches out of base of support, Reaches within base of support, Minimal Assistance Comment: seated at edge of bed - Transfers Wheelchair to Bed Transfers: Verbal Cues, Set-up Help, Moderate Assistance Toilet Transfers: Verbal Cues, Set-up Help, Moderate Assistance Comment: with RW and or slide board varies with anxiety - Wheelchair Management Level of Assistance: Moderate Assistance Distance (ft.): 20 - Upper Extremity Status Right Upper Extremity Comment: 4-/5 throughout, AROM is WFLS Left Upper Extremity Comment: 3+/5 throughout LUE - Pain Pain (assessed during therapy session): 0 Alleviating Techniques: Medication Comment: pain in abdominal /incision area - Insight/Carryover Insight/Carryover: Fair - Patient/Family Education Comment: -safety, therapy schedule, therapy goals, stroke recovery, benefits of therapy, body mechanics, therapy POC, use of all call, discharge planning - Assessment/Plan Assessment: Patient continues to lack motivation to participate with this field underwriter and refuses to perform tasks that she has done in the past or even earlier in day with other therapists. Patient actively resist sit to/from stand and is very fearful of standing. Patient is self-limiting and presents with anxiety and fear. Pt would benefit from skilled therapies and medical management in [facility] with a lower intensity of rehabilitation. Pt recommends discharge to [facility] to continue addressing skilled needs. - Goals Timeframe: 7 days Goals: min A with sit to/from stand. mod A for SPT. supine to/from sit with min A. ambulate 15 feet with RW with min A - Provider Therapist: CARLENE Victor/L License Number: [id number] Speech Therapy - Consult Information Patient on Program: Yes Medical Diagnosis: CVA Treatment Diagnosis: mild-moderate cognitive deficits - Assessment Problem Solving Impairment: Mild Memory Impairment: Moderate - Plan Assessment: Patient continues to lack motivation to participate with this field underwriter and refuses to perform tasks that she has done in the past or even earlier in day with other therapists. Patient actively resist sit to/from stand and is very fearful of standing. Patient is self-limiting and presents with anxiety and fear. Pt would benefit from skilled therapies and medical management in [facility] with a lower intensity of rehabilitation. Pt recommends discharge to [facility] to continue addressing skilled needs. - Provider Therapist: Anna Delacruz License Number: [id number] Recreational Therapy - Participation Participation: Participates in Individual and/or Group Sessions, Monitors His/ Her Own Leisure Time - Attendance Attendance: Daily - Activities Leisure Activities: Cards and Games - Socialization Level of Socialization: Initiates/interacts freely with care givers and peer - Diversional Time Diversional Time: listening to music - Assessment Assessment/Plan: Patient continues to lack motivation to participate with this field underwriter and refuses to perform tasks that she has done in the past or even earlier in day with other therapists. Patient actively resist sit to/from stand and is very fearful of standing. Patient is self-limiting and presents with anxiety and fear. Pt would benefit from skilled therapies and medical management in [facility] with a lower intensity of rehabilitation. Pt recommends discharge to [facility] to continue addressing skilled needs. - Provider Therapist: Erin Giles, [employer] #[id number] Nutrition - Current Diet Current Diet/ Supplement/ Feedings: Moderate consistent CHO renal dialysis nepro 8 ounces 1 per day(425 kcal and 19.1 grams of protein) - Appetite Percent Meal Consumed: 50-74% - Comments Comments: -Care post CVA and safety precautions. - Infection control. - Pain management - Assessment/Goals/Time Frame Assessment/Goals/Time Frame: 0740AM: COOKER MECHANIC called for BP 78/40. Resolved without intervention, BP: 109/54. Pt tearful and wants to go home because she feels " sad being here ". - (+) pending Psychiatry consult. - Provider Provider: Becky Curry RD Case Management - Psychosocial Assessment Support Systems: Moises Isabel (spouse)- [phone]. Nurys Isabel ( daughter)- [phone] Psychological Interventions/Needs: Patient is alert Discharge Concerns: Patient with limited support at home, patient continues to require max-total assist for all functional mobility at this time. Patient with colostomy and incontinent of bladder. Patient making slow progress in therapy Patient/Family Meeting: CM met with patient and rehab team Intervention/Goal/Outcome:: 1. Plan: [facility] at [facility] with on site HD. 2. continued emotional support. 3. coordinate d/c and transfer with family. 3. tentative discharge date: 12/13/2017. - Discharge Plan Discharge Plan: Subacute care - Provider Provider: DENNYS Cruz, RETURN CLERK License Number: [id number] Rehabilitation Plan - Treatment Plan Treatment Plan: Physical Therapy, Occupational Therapy, Speech, Dietary, Patient /Family Education - Discharge Plan Estimated Date of Discharge: 12/13/17 Discharge to: Subacute
--- NOTE | 2017-12-11 13:46 | CP.PCM.PN ---
Subjective - Date & Time of Evaluation Date of Evaluation: 12/11/17 Time of Evaluation: 13:44 - Subjective Subjective: Patient seen in the room a little down but and wants to go home I had to explain to her again that she is dependent in most tasks and cannot be home alone, will need 24 hour care She understands but is still not happy that she cannot go home Objective - Vital Signs/Intake and Output Vital Signs (last 24 hours): Temp Pulse Resp BP Pulse Ox 97.2 F L 95 H 18 104/65 97 12/11/17 09:00 12/11/17 09:00 12/11/17 09:00 12/11/17 09:00 12/11/17 07:25 - Medications Medications: Current Medications Acetaminophen (Tylenol 325mg Tab) 975 mg PO Q8 PRN PRN Reason: Pain, Mild (1-3) Last Admin: 12/08/17 11:27 Dose: 975 mg Aspirin (Ecotrin) 81 mg PO DAILY [facility] Last Admin: 12/11/17 08:17 Dose: 81 mg Atorvastatin Calcium (Lipitor) 20 mg PO HS@2200 [facility] Last Admin: 12/10/17 21:51 Dose: 20 mg Epoetin Gonzalo (Procrit) 15,000 unit IV MWF [facility] Last Admin: 12/10/17 16:03 Dose: 15,000 unit Heparin Sodium (Porcine) (Heparin) 5,000 units SC Q8 [facility] PRN Reason: Protocol Last Admin: 12/11/17 06:33 Dose: 5,000 units Sodium Chloride (Sodium Chloride 0.9%) 500 mls @ 125 mls/hr IV .Q4H PRN PRN Reason: SBP lower that 90 Stop: 12/11/17 23:59 Megestrol Acetate (Megace) 400 mg PO DAILY [facility] Last Admin: 12/11/17 08:17 Dose: 400 mg Metoprolol Tartrate (Lopressor) 12.5 mg PO Q12 [facility] Last Admin: 12/11/17 08:18 Dose: Not Given Mirtazapine (Remeron) 7.5 mg PO HS [facility] Ondansetron HCl (Zofran Odt) 4 mg PO Q8H PRN PRN Reason: Nausea/Vomiting Oxycodone HCl (Oxycodone Immediate Release Tab) 5 mg PO Q6 PRN PRN Reason: Pain 4-10 Last Admin: 12/10/17 08:29 Dose: 5 mg Pantoprazole Sodium (Protonix Ec Tab) 40 mg PO DAILY [facility] Last Admin: 12/11/17 08:17 Dose: 40 mg Silver Sulfadiazine (Silvadene 1% 50 Gm) 1 applic TOP BID [facility] Last Admin: 12/11/17 08:16 Dose: 1 applic Vitamin B Complex/Vit C/Folic Acid (Nephro-Jyoti) 1 tab PO DAILY [facility] Last Admin: 12/11/17 08:17 Dose: 1 tab - Labs Labs: 12/04/17 05:25 12/04/17 05:25
[2017-12-11 18:50] LABS: HEMOGLOBIN 11.5 g/dL (12.0-16.0); MEAN CELL VOLUME 96.1 fl (81.0-99.0); MEAN CORPUSCULAR HEMOGLOBIN 30.3 pg (27.0-31.0); MEAN CORPUSCULAR HGB CONC 31.5 g/dL (33.0-37.0); RBC 3.79 Mil/uL (3.80-5.20); RED CELL DISTRIBUTION WIDTH 24.2 % (11.5-14.5); WHITE BLOOD COUNT 13.8 K/uL (4.8-10.8)
[2017-12-11 19:11] LABS: CALCIUM 11.1 mg/dL (8.4-10.2)
[2017-12-11] MEDS ORDERED: Sod Polystyrene Sulf 15 gm/60 ml Susp PO ONE ×2 (20:37→20:52)
[2017-12-12] MEDS: Silver Sulfadiazine 1% CREAM (50 gm) TOP SCH ×2 (08:35→17:30)
[2017-12-12] MEDS: Megestrol Acetate 40 mg/ml Cup PO SCH (08:36)
[2017-12-12] MEDS: Iodoform 1/2inx15ft BOT EXT SCH (08:36)
[2017-12-12] MEDS: Multivitamin Vitamin B Complex (Nephro-Vite) Tab PO SCH (08:37)
[2017-12-12] MEDS: Pantoprazole 40 mg EC Tab PO SCH (08:38)
--- NOTE | 2017-12-12 11:46 | CP.PCM.PN ---
Subjective - Date & Time of Evaluation Date of Evaluation: 12/12/17 Time of Evaluation: 11:43 - Subjective Subjective: Patient developed episode of hypotension she became weak yesterday. I gave her 500 mL of normal saline And responded very well Patient appeared that she might have been hypovolemic. For today she looks very good and feeling great Objective - Vital Signs/Intake and Output Vital Signs (last 24 hours): Temp Pulse Resp BP Pulse Ox 98.1 F 95 H 20 108/65 96 12/12/17 07:41 12/12/17 09:10 12/12/17 07:41 12/12/17 09:10 12/12/17 07:41 - Medications Medications: Current Medications Acetaminophen (Tylenol 325mg Tab) 975 mg PO Q8 PRN PRN Reason: Pain, Mild (1-3) Last Admin: 12/08/17 11:27 Dose: 975 mg Aspirin (Ecotrin) 81 mg PO DAILY [facility] Last Admin: 12/12/17 08:36 Dose: 81 mg Atorvastatin Calcium (Lipitor) 20 mg PO HS@2200 [facility] Last Admin: 12/11/17 22:00 Dose: 20 mg Epoetin Gonzalo (Procrit) 15,000 unit IV MWF [facility] Last Admin: 12/10/17 16:03 Dose: 15,000 unit Heparin Sodium (Porcine) (Heparin) 5,000 units SC Q8 [facility] PRN Reason: Protocol Last Admin: 12/12/17 06:40 Dose: 5,000 units Megestrol Acetate (Megace) 400 mg PO DAILY [facility] Last Admin: 12/12/17 08:36 Dose: 400 mg Metoprolol Tartrate (Lopressor) 12.5 mg PO Q12 [facility] Last Admin: 12/12/17 09:10 Dose: Not Given Mirtazapine (Remeron) 7.5 mg PO HS [facility] Last Admin: 12/11/17 22:18 Dose: 7.5 mg Ondansetron HCl (Zofran Odt) 4 mg PO Q8H PRN PRN Reason: Nausea/Vomiting Oxycodone HCl (Oxycodone Immediate Release Tab) 5 mg PO Q6 PRN PRN Reason: Pain 4-10 Last Admin: 12/10/17 08:29 Dose: 5 mg Pantoprazole Sodium (Protonix Ec Tab) 40 mg PO DAILY [facility] Last Admin: 12/12/17 08:38 Dose: 40 mg Silver Sulfadiazine (Silvadene 1% 50 Gm) 1 applic TOP BID [facility] Last Admin: 12/12/17 08:35 Dose: 1 applic Vitamin B Complex/Vit C/Folic Acid (Nephro-Jyoti) 1 tab PO DAILY [facility] Last Admin: 12/12/17 08:37 Dose: 1 tab - Labs Labs: 12/11/17 18:25 12/11/17 18:25 - Constitutional Appears: No Acute Distress - Eye Exam Eye Exam: Conjunctival injection - ENT Exam ENT Exam: Mucous Membranes Moist - Neck Exam Neck Exam: absent: Lymphadenopathy - Respiratory Exam Respiratory Exam: NORMAL BREATHING PATTERN. absent: Rales - Cardiovascular Exam Cardiovascular Exam: REGULAR RHYTHM. absent: Gallop, Rubs - GI/Abdominal Exam GI & Abdominal Exam: Soft, Normal Bowel Sounds - Extremities Exam Extremities Exam: absent: Calf Tenderness - Back Exam Back Exam: absent: CVA tenderness (L), CVA tenderness (R) - Neurological Exam Neurological Exam: Alert - Psychiatric Exam Psychiatric exam: Normal Affect - Skin Skin Exam: absent: Cyanosis Assessment and Plan (1) Chronic kidney disease on chronic dialysis Assessment & Plan: End stage renal disease patient to have dialysis shortly as scheduled. Patient developed hypovolemia and hypotension yesterday she was given 500 mL normal saline. Hyperkalemia serum potassium 5.8 yesterday she was given Kayexalate waiting to repeat BMP. Hypercalcemia serum calcium 11.1 no explanation to repeat today. Patient not taken as far as I know any calcium supplement of vitamin D. If hypercalcemia persisted we need to do PTH and phosphorus. 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 She also had a cardiac arrest and respiratory failure requiring intubation . After improving she was transferred to acute rehab for physical therapy where she continued to have some episodes of GI bleed. On 11/04 she started to have worsening of rectal bleed , with blood clots per rectum hypotension, fever Tmax 102 and some lower abdominal tenderness. Full septic panel was ordered , Cipro and Flagyl given, IVF bolus started. Patient was then admitted to ICU with diagnosis of hypovolemic shock and GI bleed and rule out sepsis. Her colonoscopy performed at [facility] had shown: diffuse severe inflammation with ulcerations in the entire colon, severe ischemic colitis mucosal ulcerations up to 40cm dinorah. GI, surgery and ID consulted Underwent Left Colon resection with ileostomy on 11/09. Transfused total 7 unit PRBC. Hemodynamically stable, iliostomy is working and surgical wound is healing. Status: Acute (2) Gastrointestinal hemorrhage Status: Acute
[2017-12-12 15:26] LABS: HEMOGLOBIN 11.5 g/dL (12.0-16.0); MEAN CELL VOLUME 94.9 fl (81.0-99.0); MEAN CORPUSCULAR HEMOGLOBIN 30.8 pg (27.0-31.0); MEAN CORPUSCULAR HGB CONC 32.5 g/dL (33.0-37.0); RBC 3.73 Mil/uL (3.80-5.20); RED CELL DISTRIBUTION WIDTH 23.9 % (11.5-14.5); WHITE BLOOD COUNT 14.3 K/uL (4.8-10.8)
[2017-12-12] MEDS: Epoetin Alfa 20000 UNIT/ML (RENAL DOSE) IV SCH (17:29)
--- NOTE | 2017-12-12 17:50 | CP.PCM.PN ---
Subjective - Date & Time of Evaluation Date of Evaluation: 12/12/17 Time of Evaluation: 17:48 - Subjective Subjective: Patient seen in the room getting HD NAD ambulated 6' in therapies today d/c is set for 12/13/17 continue current care Objective - Vital Signs/Intake and Output Vital Signs (last 24 hours): Temp Pulse Resp BP Pulse Ox 98.1 F 95 H 20 108/65 96 12/12/17 07:41 12/12/17 09:10 12/12/17 07:41 12/12/17 09:10 12/12/17 07:41 - Medications Medications: Current Medications Acetaminophen (Tylenol 325mg Tab) 975 mg PO Q8 PRN PRN Reason: Pain, Mild (1-3) Last Admin: 12/08/17 11:27 Dose: 975 mg Aspirin (Ecotrin) 81 mg PO DAILY [facility] Last Admin: 12/12/17 08:36 Dose: 81 mg Atorvastatin Calcium (Lipitor) 20 mg PO HS@2200 [facility] Last Admin: 12/11/17 22:00 Dose: 20 mg Epoetin Gonzalo (Procrit) 15,000 unit IV MWF [facility] Last Admin: 12/12/17 17:29 Dose: 15,000 unit Heparin Sodium (Porcine) (Heparin) 5,000 units SC Q8 [facility] PRN Reason: Protocol Last Admin: 12/12/17 13:18 Dose: 5,000 units Megestrol Acetate (Megace) 400 mg PO DAILY [facility] Last Admin: 12/12/17 08:36 Dose: 400 mg Metoprolol Tartrate (Lopressor) 12.5 mg PO Q12 [facility] Last Admin: 12/12/17 09:10 Dose: Not Given Mirtazapine (Remeron) 7.5 mg PO HS [facility] Last Admin: 12/11/17 22:18 Dose: 7.5 mg Ondansetron HCl (Zofran Odt) 4 mg PO Q8H PRN PRN Reason: Nausea/Vomiting Oxycodone HCl (Oxycodone Immediate Release Tab) 5 mg PO Q6 PRN PRN Reason: Pain 4-10 Last Admin: 12/10/17 08:29 Dose: 5 mg Pantoprazole Sodium (Protonix Ec Tab) 40 mg PO DAILY [facility] Last Admin: 12/12/17 08:38 Dose: 40 mg Silver Sulfadiazine (Silvadene 1% 50 Gm) 1 applic TOP BID [facility] Last Admin: 12/12/17 17:30 Dose: 1 applic Vitamin B Complex/Vit C/Folic Acid (Nephro-Jyoti) 1 tab PO DAILY [facility] Last Admin: 12/12/17 08:37 Dose: 1 tab - Labs Labs: 12/12/17 15:11 12/11/17 18:25
[2017-12-12 18:13] LABS: CALCIUM 10.8 mg/dL (8.4-10.2)
[2017-12-13 07:45] VITALS: O2SAT 99
--- NOTE | 2017-12-13 09:24 | CP.PCM.PN ---
Subjective - Date & Time of Evaluation Date of Evaluation: 12/13/17 Time of Evaluation: 09:21 - Subjective Subjective: Patient doing much better continue to have physiotherapy Objective - Vital Signs/Intake and Output Vital Signs (last 24 hours): Temp Pulse Resp BP Pulse Ox 97.7 F 93 H 18 100/52 L 99 12/13/17 07:44 12/13/17 07:44 12/13/17 07:44 12/13/17 07:44 12/13/17 07:44 - Medications Medications: Current Medications Acetaminophen (Tylenol 325mg Tab) 975 mg PO Q8 PRN PRN Reason: Pain, Mild (1-3) Last Admin: 12/08/17 11:27 Dose: 975 mg Aspirin (Ecotrin) 81 mg PO DAILY [facility] Last Admin: 12/12/17 08:36 Dose: 81 mg Atorvastatin Calcium (Lipitor) 20 mg PO HS@2200 [facility] Last Admin: 12/12/17 22:25 Dose: 20 mg Epoetin Gonzalo (Procrit) 15,000 unit IV MWF [facility] Last Admin: 12/12/17 17:29 Dose: 15,000 unit Heparin Sodium (Porcine) (Heparin) 5,000 units SC Q8 [facility] PRN Reason: Protocol Last Admin: 12/13/17 05:13 Dose: 5,000 units Megestrol Acetate (Megace) 400 mg PO DAILY [facility] Last Admin: 12/12/17 08:36 Dose: 400 mg Metoprolol Tartrate (Lopressor) 12.5 mg PO Q12 [facility] Last Admin: 12/12/17 21:21 Dose: Not Given Mirtazapine (Remeron) 7.5 mg PO HS [facility] Last Admin: 12/12/17 21:22 Dose: 7.5 mg Ondansetron HCl (Zofran Odt) 4 mg PO Q8H PRN PRN Reason: Nausea/Vomiting Oxycodone HCl (Oxycodone Immediate Release Tab) 5 mg PO Q6 PRN PRN Reason: Pain 4-10 Last Admin: 12/10/17 08:29 Dose: 5 mg Pantoprazole Sodium (Protonix Ec Tab) 40 mg PO DAILY [facility] Last Admin: 12/12/17 08:38 Dose: 40 mg Silver Sulfadiazine (Silvadene 1% 50 Gm) 1 applic TOP BID [facility] Last Admin: 12/12/17 17:30 Dose: 1 applic Vitamin B Complex/Vit C/Folic Acid (Nephro-Jyoti) 1 tab PO DAILY [facility] Last Admin: 12/12/17 08:37 Dose: 1 tab - Labs Labs: 12/12/17 15:11 12/12/17 18:04 - Constitutional Appears: No Acute Distress - ENT Exam ENT Exam: Mucous Membranes Moist - Neck Exam Neck Exam: absent: Lymphadenopathy - Respiratory Exam Respiratory Exam: absent: Chest Wall Tenderness - Cardiovascular Exam Cardiovascular Exam: absent: Gallop, JVD, Rubs - GI/Abdominal Exam GI & Abdominal Exam: Soft - Extremities Exam Extremities Exam: absent: Calf Tenderness - Back Exam Back Exam: absent: CVA tenderness (L), CVA tenderness (R) - Neurological Exam Neurological Exam: Alert Assessment and Plan (1) Chronic kidney disease on chronic dialysis Assessment & Plan: End stage renal disease patient to have dialysis shortly as scheduled. Patient developed hypovolemia and hypotension yesterday she was given 500 mL normal saline. Hyperkalemia serum potassium 5.8 yesterday she was given Kayexalate waiting to repeat BMP. Hypercalcemia serum calcium coming down 10.8 no explanation to repeat tomorrow. Patient not taken as far as I know any calcium supplement of vitamin D. If hypercalcemia persisted we need to do PTH and phosphorus. The rest of the medical problem as noted previously serum phosphorus repeatedhich is high we will add Renagel PTH pending Status: Acute (2) Gastrointestinal hemorrhage Status: Acute
[2017-12-13] MEDS: Iodoform 1/2inx15ft BOT EXT SCH (09:43)
[2017-12-13] MEDS: Silver Sulfadiazine 1% CREAM (50 gm) TOP SCH (09:43)
[2017-12-13] MEDS: Megestrol Acetate 40 mg/ml Cup PO SCH (09:45)
[2017-12-13] MEDS: Multivitamin Vitamin B Complex (Nephro-Vite) Tab PO SCH (09:46)
[2017-12-13] MEDS: Pantoprazole 40 mg EC Tab PO SCH (09:46)
[2017-12-13 16:10] VITALS: BP 91/55; PULSE 98; RESP 20; TEMP 98.2
== END 2017-12-13 16:00 | DRG 949 ==
PROVIDERS: ADMIT Internal Medicine; ATTEND Internal Medicine
PROC: F07Z5FZ Bed Mobility Treatment using Assistive, Adaptive, Supportive or Protective Equipment (ICD-10-PCS; principal; 2017-11-22)
PROC: F07Z8FZ Transfer Training Treatment using Assistive, Adaptive, Supportive or Protective Equipment (ICD-10-PCS; 2017-11-22)
PROC: F07Z9FZ Gait Training/Functional Ambulation Treatment using Assistive, Adaptive, Supportive or Protective Equipment (ICD-10-PCS; 2017-11-22)
PROC: F07L6FZ Therapeutic Exercise Treatment of Musculoskeletal System - Lower Back / Lower Extremity using Assistive, Adaptive, Supportive or Protective Equipment (ICD-10-PCS; 2017-11-22)
PROC: F08Z2FZ Grooming/Personal Hygiene Treatment using Assistive, Adaptive, Supportive or Protective Equipment (ICD-10-PCS; 2017-11-22)
PROC: F08Z1FZ Dressing Techniques Treatment using Assistive, Adaptive, Supportive or Protective Equipment (ICD-10-PCS; 2017-11-22)
PROC: F08Z0FZ Bathing/Showering Techniques Treatment using Assistive, Adaptive, Supportive or Protective Equipment (ICD-10-PCS; 2017-11-22)
PROC: F06Z6ZZ Communicative/Cognitive Integration Skills Treatment (ICD-10-PCS; 2017-11-22)
DX: Z48.815 Encounter for surgical aftercare following surgery on the digestive system (principal); N18.6 End stage renal disease; I69.354 Hemiplegia and hemiparesis following cerebral infarction affecting left non-dominant side; I12.0 Hypertensive chronic kidney disease with stage 5 chronic kidney disease or end stage renal disease; N25.81 Secondary hyperparathyroidism of renal origin; E66.9 Obesity, unspecified; I48.0 Paroxysmal atrial fibrillation; E83.39 Other disorders of phosphorus metabolism; Z93.3 Colostomy status; Z99.2 Dependence on renal dialysis; F43.20 Adjustment disorder, unspecified; F06.30 Mood disorder due to known physiological condition, unspecified; Z86.74 Personal history of sudden cardiac arrest; Z91.040 Latex allergy status; E11.22 Type 2 diabetes mellitus with diabetic chronic kidney disease; D63.1 Anemia in chronic kidney disease